=== PATIENT | male | born 1960 | race Caucasian/White ===

== ENCOUNTER 2016-12-23 17:12 | Inpatient (IN) | payer BC ==
[2016-12-23] MEDS ORDERED: SODIUM CHLORIDE 0.9% 1,000 ML IV STA (17:23)
[2016-12-23] MEDS ORDERED: ASPIRIN 81 MG PO STA ×2 (17:36→17:40)
[2016-12-23] MEDS ORDERED: NITROGLYCERIN SL TABS 0.4 MG TAB SUBLINGUAL PRN ×2 (17:36→19:15)
[2016-12-23] MEDS ORDERED: HEPARIN SODIUM,PORCINE 5,000 UNIT/ML 1 ML VIAL IV PRN (17:36)
[2016-12-23] MEDS ORDERED: HEPARIN SODIUM,PORCINE 5,000 UNIT/ML 1 ML VIAL IV ONE (17:36)
[2016-12-23] MEDS ORDERED: MORPHINE SULFATE 10 MG/ML SYRINGE IV PRN (17:36)
--- NOTE | 2016-12-23 17:40 | ED ---
General Adult HPI - General Chief complaint: Weakness Stated complaint: pain in back, feeling ill Time Seen by Provider: 12/23/16 17:23 Source: patient, RN notes reviewed, old records reviewed Mode of arrival: wheelchair Limitations: no limitations - History of Present Illness Initial comments: This is a 56-year-old male to the ER for evaluation chest pain. Patient is anterior chest pain and pain that is in his back. Patient had prehospital EKG which he was told may have been abnormal. Patient's part in by EMS. Patient denies any shortness of breath or diaphoresis. Patient states he thinks he has history of heart disease and does have a positive family history of heart disease and history himself of ex-smoking. Patient has no high blood pressure normal cholesterol. No recent cardiac evaluation. Patient denies any symptoms of recent cough or congestion, no fatigue, no travel history. Pain started about an hour and a half to 2 hours prior to arrival, is sharp in nature, no modifying factors for pain at this time - Related Data Previous Rx's Medication Instructions Recorded Aspirin 81 mg PO DAILY #30 chew 12/26/16 Atorvastatin [Lipitor] 80 mg PO HS #30 tab 12/26/16 Carvedilol [Coreg] 6.25 mg PO BID-W/MEALS #60 tab 12/26/16 Lisinopril [Zestril] 5 mg PO BID #60 tab 12/26/16 Nitroglycerin Sl Tabs [Nitrostat] 0.4 mg SUBLINGUAL Q5M PRN #25 tab 12/26/16 Prasugrel [Effient] 10 mg PO DAILY #30 tab 12/26/16 Spironolactone [Aldactone] 25 mg PO DAILY #30 tab 12/26/16 Allergies Allergy/AdvReac Type Severity Reaction Status Date / Time No Known Allergies Allergy Verified 12/23/16 20:05 Review of Systems ROS Statement: Those systems with pertinent positive or pertinent negative responses have been documented in the HPI. ROS Other: All systems not noted in ROS Statement are negative. Past Medical History Past Medical History: Coronary Artery Disease (CAD), COPD History of Any Multi-Drug Resistant Organisms: None Reported Past Surgical History: Tonsillectomy Additional Past Surgical History / Comment(s): ABLATION ON HEART FOR SVT Past Psychological History: No Psychological Hx Reported Smoking Status: Former smoker Past Alcohol Use History: Occasional Past Drug Use History: None Reported General Exam Limitations: no limitations General appearance: alert, in no apparent distress, anxious Head exam: Present: atraumatic, normocephalic, normal inspection Eye exam: Present: normal appearance, PERRL, EOMI. Absent: scleral icterus, conjunctival injection, periorbital swelling ENT exam: Present: normal exam, mucous membranes moist Neck exam: Present: normal inspection. Absent: tenderness, meningismus, lymphadenopathy Respiratory exam: Present: normal lung sounds bilaterally. Absent: respiratory distress, wheezes, rales, rhonchi, stridor Cardiovascular Exam: Present: regular rate, normal rhythm, normal heart sounds. Absent: systolic murmur, diastolic murmur, rubs, gallop, clicks GI/Abdominal exam: Present: soft, normal bowel sounds. Absent: distended, tenderness, guarding, rebound, rigid Extremities exam: Present: normal inspection, full ROM, normal capillary refill. Absent: tenderness, pedal edema, joint swelling, calf tenderness Back exam: Present: normal inspection Neurological exam: Present: alert, oriented X3, CN II-XII intact Psychiatric exam: Present: normal affect, normal mood Skin exam: Present: warm, dry, intact, normal color. Absent: rash Course Vital Signs 12/23/16 12/23/16 12/23/16 17:14 17:35 17:37 Temperature 99.1 F Pulse Rate 110 H 116 H 111 H Respiratory 18 18 Rate Blood Pressure 210/104 204/113 199/111 O2 Sat by Pulse 96 Oximetry 12/23/16 17:48 Temperature Pulse Rate 125 H Respiratory 18 Rate Blood Pressure 206/105 O2 Sat by Pulse 97 Oximetry - Reevaluation(s) Reevaluation #1: STEMI paged overhead, cardiology evaluate patient in the emergency room Reevaluation #2: Spoke with patient regarding diagnosis, patient questions are answered at this time. 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 - Lab Data Result diagrams: 12/26/16 05:37 12/25/16 05:51 - Radiology Data Radiology results: report reviewed (Portable chest x-ray negative), image reviewed Critical Care Time Critical Care Time: Yes Total Critical Care Time: 31 Disposition Clinical Impression: STEMI (ST elevation myocardial infarction) Disposition: ADMITTED IP TO THIS [facility] Condition: Critical
[2016-12-23] MEDS ORDERED: SODIUM CHLORIDE 0.9% 1,000 ML IV SCH ×2 (17:45→19:15)
[2016-12-23] MEDS ORDERED: HEPARIN SODIUM,PORCINE/D5W PMX 25,000 UNIT in DEXTROSE/WATER 1 500ML.BAG IV SCH (17:45)
[2016-12-23] MEDS ORDERED: LABETALOL 5 MG/ML VIAL MDV IVP STA (17:45)
[2016-12-23 17:51] LABS: Basophils # (A) 0.1 k/uL (0-0.2); Basophils % (A) 0 %; CH 29.9; CHCM 32.5; Eosinophils # (A) 0.2 k/uL (0-0.7); Eosinophils % (A) 1 %; HCT 49.4 % (39.0-53.0); HDW 2.22; HGB 15.8 gm/dL (13.0-17.5); Luc # (Auto) 0.25; Luc % (Auto) 2; Lymphocytes # (A) 2.7 k/uL (1.0-4.8); Lymphocytes % (A) 21 %; MCH 29.6 pg (25.0-35.0); MCHC 32.1 g/dL (31.0-37.0); MCV 92.2 fL (80.0-100.0); Mean Platelet Volume 7.2; Monocytes # (A) 0.8 k/uL (0-1.0); Monocytes % (A) 6 %; Neutrophils # (A) 9.2 k/uL (1.3-7.7); Neutrophils % (A) 70 %; RBC 5.36 m/uL (4.30-5.90); RDW 12.6 % (11.5-15.5); WBC 13.3 k/uL (3.8-10.6); WBC (Perox) 12.54
[2016-12-23] MEDS ORDERED: LIDOCAINE 2% INJ 20 MG/ML (20 ML MDV) ONE (17:51)
[2016-12-23] MEDS ORDERED: SODIUM CHLORIDE 0.9% 1,000 ML IV ONE (17:55)
[2016-12-23 18:00] LABS: ALT 84 U/L (21-72); AST 85 U/L (17-59); Alkaline Phosphatase 69 U/L (38-126); Anion Gap 10 mmol/L; Blood Urea Nitrogen 15 mg/dL (9-20); Calcium 9.9 mg/dL (8.4-10.2); Carbon Dioxide 27 mmol/L (22-30); Chloride 103 mmol/L (98-107); Glucose 118 mg/dL (74-99); Non-African American GFR(MDRD) >60 (>60 ml/min/1.73 sqM); Phosphorus 3.9 mg/dL (2.5-4.5); Potassium 4.7 mmol/L (3.5-5.1); Sodium 140 mmol/L (137-145); Total Bilirubin 0.5 mg/dL (0.2-1.3); Total Protein 7.9 g/dL (6.3-8.2)
[2016-12-23 18:03] LABS: INR 1.1 (<1.2); Partial Thromboplastin Time 25.7 sec (22.0-30.0); Prothrombin Time 10.7 sec (9.0-12.0)
[2016-12-23] MEDS ORDERED: VERAPAMIL 2.5 MG/ML 2 ML AMP ONE (18:09)
[2016-12-23] MEDS ORDERED: diphenhydrAMINE 50 MG/ML 1 ML VIAL ONE (18:10)
[2016-12-23] MEDS ORDERED: fentaNYL (PF) 50 MCG/ML 2 ML AMP ONE (18:10)
--- NOTE | 2016-12-23 18:12 | XR ---
EXAMINATION TYPE: XR chest 1V DATE OF EXAM: 12/23/2016 COMPARISON: NONE HISTORY: Abnormal cardiogram TECHNIQUE: Single frontal view of the chest is obtained. FINDINGS: Heart and mediastinum are normal. Lungs are clear of consolidation. There are no hilar mas ses. There is no pleural effusion. There are chest leads. IMPRESSION: No active cardiopulmonary disease.
[2016-12-23] MEDS ORDERED: LIDOCAINE 2% INJ 20 MG/ML SQ ONE (18:13)
[2016-12-23] MEDS ORDERED: diphenhydrAMINE 50 MG/ML 1 ML VIAL IVP ONE (18:13)
[2016-12-23] MEDS ORDERED: fentaNYL (PF) 50 MCG/ML 2 ML AMP IV ONE (18:13)
[2016-12-23] MEDS ORDERED: VERAPAMIL SYRINGE (5 MG/10 ML) INTRAARTER ONE ×2 (18:15)
[2016-12-23] MEDS ORDERED: BIVALIRUDIN BOLUS 250 MG/50 ML IV ONE (18:22)
[2016-12-23] MEDS ORDERED: BIVALIRUDIN 250 MG in SODIUM CHLORIDE 0.9% 50 ML IV ONE (18:22)
[2016-12-23 18:23] LABS: Creatine Kinase MB 36.4 ng/mL (0.0-2.4); Troponin I 2.87 ng/mL (0.000-0.034)
[2016-12-23] MEDS ORDERED: PRASUGREL 10 MG TAB ONE (18:25)
[2016-12-23] MEDS ORDERED: NITROGLYCERIN 1000MCG/10ML SYRINGE INTRACORON ONE (18:26)
[2016-12-23] MEDS ORDERED: PRASUGREL 10 MG TAB PO ONE (18:27)
[2016-12-23] MEDS ORDERED: IOHEXOL 350 MG/ML 125ML BOTTLE INJ ONE (18:51)
[2016-12-23] MEDS ORDERED: RX INFO: IV CONTRAST WAS GIVEN 1 EACH MISC MISCELLANE PRN (19:15)
[2016-12-23] MEDS ORDERED: MAG HYDROX/AL HYDROX/SIMETH 30 ML CUP PO PRN (19:15)
[2016-12-23] MEDS ORDERED: ZOLPIDEM 5 MG TAB PO PRN (19:15)
[2016-12-23] MEDS ORDERED: ATROPINE SULFATE 0.1 MG/ML 10ML SYRINGE IV PRN (19:15)
[2016-12-23 19:19] LABS: Glucose,Whole Blood 132 mg/dL (75-99)
--- NOTE | 2016-12-23 19:33 | CONS ---
CONSULTATION Mr. Lindo is a 56-year-old male with no prior history of coronary disease, history of hypertension, who presented to the emergency room with symptoms of chest discomfort. His discomfort started at 1:00 while at work with pain in the chest and in the back is associated with discomfort in the ear. He came into the emergency room and his EKG was consistent with an acute anterior wall myocardial infarction. The patient is average in his exercise tolerance, has no prior documented history of coronary artery disease, has no significant dyspnea on exertion, no dizziness, palpitations or syncope. 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 His coronary risk factors are remarkable for hypertension. He is nonsmoker, nondiabetic. REVIEW OF SYSTEMS: RESPIRATORY: No recent wheezing. No cough. No history of documented asthma, emphysema or bronchitis. GI: No recent GI bleed. No peptic ulcer disease. : No dysuria or hematuria. NERVOUS: No stroke or seizure. PHYSICAL EXAMINATION: A 56-year-old male; alert, oriented, in mild discomfort, examined in the cardiac catheterization laboratory. Blood pressure running in the 90s with a heart rate of 170/95. HEAD: Normocephalic. EYES: Sclerae anicteric. NECK: Good upstroke. No bruits. No jugular venous distention with a transmitted murmur. LUNGS: Clear to auscultation anteriorly. HEART: Regular rhythm. S1, S2. No S3 with systolic murmur 2/6 heard at the base. No diastolic murmur. No rub. ABDOMEN: Soft, nontender. Positive bowel sounds. No organomegaly. EXTREMITIES: No edema. Intact distal pulses. EKG revealed sinus mechanism, rate of 108 with evidence of right bundle branch block and ST-segment elevation in the anterolateral leads consistent with an acute myocardial infarction with ST elevation involving the inferior leads as well. IMPRESSION: 1. Acute anterolateral apical myocardial infarction. 2. History of hypertension. 3. Remote history of supraventricular tachycardia, status post ablation. RECOMMENDATION: I recommend proceeding with coronary angiography to assess his status and guide his treatment. The rationale behind the procedure, risks and the complication were discussed with the patient, who is in full understanding and agreement. Thank you for this consult. We will follow with you. MMODL / IJN: [id number] /
--- NOTE | 2016-12-23 19:42 | CC ---
CARDIAC CATHETERIZATION REPORT Mr. Lindo is a 56-year-old male with a known history of hypertension who presented with an acute anterior myocardial infarction. In view of that, recommendation made regarding cardiac catheterization. The procedure, risks and complications were discussed with the patient, who is in full understanding and agreement. 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 Using Xylocaine anesthesia and Seldinger technique, a 6-Portuguese sheath was introduced in the right radial artery. Selective right and left coronary angiography were performed using 6-Portuguese 3-1/2 FL guiding catheter and after performing angioplasty and stenting, right coronary angiography was performed. Right coronary angiography was performed using a 5-Portuguese 3- 1/2 bend right Belen catheter. Following that, the 5-Portuguese tight pigtail catheter introduced in the left ventricle and a 30-degree ALEX view of the left ventricle was obtained. Following the catheter and sheath were removed. Hemostasis was obtained with deployment of TR band. There was no immediate complication. Patient was returned to his room in stable condition. Of note, the patient received intra-arterial verapamil. FINDINGS: 1. Fluoroscopy: There was severe calcification involving the proximal LAD. 2. Left main: This is a short size vessel. It bifurcates immediately to the LAD and left circumflex. Left main coronary artery has no evidence of high-grade stenosis. 3. Left anterior artery: This is a large-sized vessel, calcified proximally, has a 20% plaque proximally. Following that, it gives rise to 2 diagonal branches at the takeoff. At the 2nd diagonal branch, the vessel is totally occluded with minimal antegrade flow. 4. Left circumflex: This is a large dominant vessel giving rise to 2 obtuse marginal branches distally, bifurcating into PDA and posterolateral segment and branches. The PLV has a long segment of stenosis up to 60% to 70%. The vessel beyond that is small in caliber. 5. Right coronary artery: This is a small nondominant vessel that has a 70% stenosis proximally. 6. Left ventriculogram: Left ventriculogram is performed in 30-degree ALEX view and revealed anterior apical akinesis. The estimated ejection fraction is 30% to 35%. There was no significant mitral regurgitation. 7. Hemodynamics: The left ventricular end-diastolic pressure was 20-22 mmHg. There was a gradient of 20-25 mmHg peak to peak across the aortic valve. IMPRESSION: 1. Calcified proximal left anterior descending artery. 2. 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 3. Moderate disease in the left posterior left ventricular and significant disease in a small nondominant right coronary artery. 4. Severely impaired left ventricular systolic function. 5. A 25 mmHg peak to peak gradient across the aortic valve. RECOMMENDATION: In view of finding anatomy, I have recommend proceeding with angioplasty and stenting of the LAD. The procedure, its risks and complications, were discussed with the patient, who is in full understanding and agreement. MMODL / IJN: [id number] /
[2016-12-23] MEDS: LISINOPRIL 5 MG TAB PO SCH (20:14)
[2016-12-23] MEDS: ATORVASTATIN 80 MG TAB PO SCH (20:14)
[2016-12-23] MEDS: CARVEDILOL 6.25 MG TAB PO SCH (20:14)
[2016-12-23 20:20] VITALS: BMI 35.9
[2016-12-23] MEDS ORDERED: METOPROLOL TARTRATE 50 MG TAB PO SCH ×2 (21:00)
[2016-12-24 01:43] LABS: Troponin I 95.3 ng/mL (0.000-0.034)
[2016-12-24 05:15] LABS: Basophils % (A) 0 %; CH 29.8; CHCM 32.3; Eosinophils # (A) 0.2 k/uL (0-0.7); Eosinophils % (A) 2 %; HCT 47.2 % (39.0-53.0); HDW 2.15; Luc # (Auto) 0.27; Luc % (Auto) 2; Lymphocytes # (A) 2.7 k/uL (1.0-4.8); Lymphocytes % (A) 20 %; MCH 29.5 pg (25.0-35.0); MCHC 31.9 g/dL (31.0-37.0); MCV 92.5 fL (80.0-100.0); Mean Platelet Volume 7.3; Monocytes # (A) 1.4 k/uL (0-1.0); Monocytes % (A) 10 %; Neutrophils # (A) 8.6 k/uL (1.3-7.7); Neutrophils % (A) 66 %; RDW 12.6 % (11.5-15.5); WBC 13.1 k/uL (3.8-10.6); WBC (Perox) 13.02
[2016-12-24 05:59] LABS: Anion Gap 9 mmol/L; Blood Urea Nitrogen 13 mg/dL (9-20); Calcium 9.2 mg/dL (8.4-10.2); Carbon Dioxide 29 mmol/L (22-30); Chloride 102 mmol/L (98-107); Cholesterol 190 mg/dL (<200); Glucose 128 mg/dL (74-99); HDL Cholesterol 37 mg/dL (40-60); Non-African American GFR(MDRD) >60 (>60 ml/min/1.73 sqM); Potassium 4.5 mmol/L (3.5-5.1); Sodium 140 mmol/L (137-145)
[2016-12-24 06:19] LABS: Troponin I 61.3 ng/mL (0.000-0.034)
[2016-12-24] MEDS: CARVEDILOL 6.25 MG TAB PO SCH ×2 (08:12→17:43)
[2016-12-24] MEDS ORDERED: ASPIRIN 325 MG TAB PO SCH ×2 (09:00)
[2016-12-24] MEDS: ASPIRIN 81 MG PO SCH (09:19)
[2016-12-24] MEDS: LISINOPRIL 5 MG TAB PO SCH ×2 (09:19→20:56)
[2016-12-24] MEDS: SPIRONOLACTONE 25 MG TAB PO SCH (09:19)
[2016-12-24] MEDS: PRASUGREL 10 MG TAB PO SCH (09:19)
--- NOTE | 2016-12-24 12:52 | PTCA ---
PERCUTANEOUSTRANS CORORONARY ANGIOGRAPHY Mr. Lindo is a 56-year-old male who presented with an acute anterior myocardial infarction, underwent cardiac catheterization, was found to have totally occluded mid LAD. In view of that, recommendation made regarding coronary angioplasty and stenting. The procedures as well as risks and complications, were discussed with the patient, who is in full understanding and agreement. PROCEDURE: Using the 6-B[place] FL 3-1/2 guiding catheter, a 0.014 balanced medium weight J-wire was advanced across the lesion and positioned distally. Then a 2.5 x 12-mm Trek balloon was advanced and 1 inflation was done at 10 atmospheres. Following that, the balloon was removed and a 2.75 x 23-mm Xience Alpine stent was deployed, postdilated at 14 atmospheres. Following that, the balloon was removed and a 2.5 x 15-mm Xience Alpine stent was deployed distal to the first one and postdilated at 14 atmospheres. Subsequently, the balloon was withdrawn back in the overlap segment and a dilatation at 16 atmosphere was done. Following that, the angiography of the right coronary artery and left ventriculogram were performed. Following that, catheter and sheaths were removed. Hemostasis was obtained with deployment of a TR band. There was no immediate complication. Patient was returned to his room in stable condition. Of note, the patient received Angiomax per protocol as was oral loading dose of Effient. His chest discomfort resolved at the end the procedure. RESULTS: Successful stenting of the mid left anterior descending with reduction of stenosis from 100% to 0%. RECOMMENDATION: The patient will be continued on aspirin, Effient, beta blockers and simvastatin. The left ventricular function will be followed closely. Those findings and recommendations were discussed with the patient and his family and they are in full understanding and agreement. DURATION OF THE PROCEDURE: 51 minutes. MMODL / IJN: [id number] /
--- NOTE | 2016-12-24 12:54 | LTR ---
Dear Dr. Maddox: I had the pleasure to perform cardiac catheterization, coronary angioplasty and stenting on Mr. Lindo at [facility] on December 23 and a full copy of the procedure note will be forwarded to you. In brief, he was found to have a totally occluded mid LAD and underwent successful stenting of that vessel using drug-eluting stent. I am hopeful that this procedure will stabilize his status and we will see improvement in his left ventricular systolic function. Thank you again for for allowing me to participate in the in his care. Please feel free to call for any questions. Sincerely yours, MMREEDL / IJN: [id number] /
--- NOTE | 2016-12-24 15:09 | ECHOF ---
Referral Reason:mi MEASUREMENTS -------- HEIGHT: 180.3 cm WEIGHT: 116.6 kg BP: 134/69 IVSd: 1.4 cm (0.6 - 1.1) LVIDd: 4.6 cm (3.9 - 5.3) LVPWd: 1.4 cm (0.6 - 1.1) IVSs: 1.5 cm LVIDs: 2.4 cm LVPWs: 1.2 cm Ao Diam: 3.4 cm (2.0 - 3.7) AV Cusp: 0.9 cm (1.5 - 2.6) LA Diam: 2.7 cm (2.7 - 3.8) MV EXCURSION: 10.542 mm (> 18.000) MV EF SLOPE: 88 mm/s (70 - 150) EPSS: 0.6 cm MV E Farhan: 0.81 m/s MV DecT: 180 ms MV A Farhan: 1.07 m/s MV E/A Ratio: 0.76 AV maxP.10 mmHg AV meanP.71 mmHg RAP: 5.00 mmHg RVSP: 11.77 mmHg FINDINGS -------- Sinus rhythm. This was a technically difficult study with suboptimal views. The left ventricular size is normal. There is moderate concentric left ventricular hypertrophy. Overall left ventricular systolic function is mild-moderately impaired with, an EF between 40 - 45 %. [place] is serverly hypokinetic The right ventricle is normal in size and function. The left atrium is normal in size. The right atrium is normal in size. 1.5mg of Definity was utilized for enhancement of images Aortic valve is trileaflet and is moderately thickened. There is moderate aortic stenosis present. Peak/mean gradient across the Aortic Valve is 20.10mmHg / 12.71mmHg. The mitral valve leaflets are mildly thickened. There is trace mitral regurgitation. Trace tricuspid regurgitation present. The right ventricular systolic pressure, as measured by Doppler, is 11.77mmHg. Pulmonic valve appears structurally normal. The aortic root size is normal. The pericardium is normal. CONCLUSIONS -------- 1. Sinus rhythm. 2. 1.5mg of Definity was utilized for enhancement of images 3. Aortic valve is trileaflet and is moderately thickened. 4. There is moderate aortic stenosis present. 5. Peak/mean gradient across the Aortic Valve is 20.10mmHg / 12.71mmHg. 6. The mitral valve leaflets are mildly thickened. 7. There is trace mitral regurgitation. 8. Trace tricuspid regurgitation present. 9. The right ventricular systolic pressure, as measured by Doppler, is 11.77mmHg. 10. Pulmonic valve appears structurally normal. 11. The aortic root size is normal. 12. This was a technically difficult study with suboptimal views. 13. The pericardium is normal. 14. The left ventricular size is normal. 15. There is moderate concentric left ventricular hypertrophy. 16. Overall left ventricular systolic function is mild-moderately impaired with, an EF between 40 - 45 %. 17. [place] Hypokinesis. 18. The right ventricle is normal in size and function. 19. The left atrium is normal in size. 20. The right atrium is normal in size. ANIMAL KEEPER HEAD: Nola Hickman RDCS
--- NOTE | 2016-12-24 17:22 | PN ---
PROGRESS NOTE This patient was admitted with an acute anterior wall myocardial infarction. Patient underwent stent to the mid LAD. He is doing well. Denies any chest pain. Denies any shortness of breath. He has clinically remained stable. The patient's EKG shows persistent ST-segment elevation in the anterior leads. Blood pressure is 125/66 mmHg. First and second heart sounds are normal. Lungs are clinically clear to auscultation and percussion. We will review the patient's chest x-ray, continue the current medications. He will be transferred to the selective care unit and will be ambulated. MMODL / IJN: [id number] /
--- NOTE | 2016-12-24 17:34 | P.HPIM ---
History of Present Illness H&P Date: 12/24/16 Chief Complaint: Back pain Patient is a 56-year-old male without significant past medical history except hypertension came to ER with complaints of back pain radiating up towards his years started yesterday afternoon while he was at work. Patient also felt some chest discomfort. Patient was found to have elevated troponin level and EKG showed ST elevation while in the ER. 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 Denied any exertional short of breath otherwise. Patient also felt some stomach upset at the time. Denied any diaphoresis. No vomiting. No headache or dizziness or lightheadedness. Patient does have a history of SVT and underwent ablation about 15 years ago. Currently patient is chest pain-free Chest x-ray showed no acute cardio pulmonary process. Review of Systems Constitutional: Patient denies any fever or chills . No generalized weakness or weight loss. Abdomen: Patient denied nausea vomiting and diarrhea and abdominal pain. Cardiovascular: Patient denies any chest pain or short of breath no palpitations. Respiratory: patient denied any cough is from production. No shortness of breath Neurologic: Patient denied any numbness or tingling headache. Musculoskeletal: Patient denies any complaints of joint swelling or deformity. Skin: Negative Psychiatric: Negative Endocrine: No heat or cold intolerance. No recent weight gain. Genitourinary: No dysuria or hematuria. All other 14 point ROS negative except the above Past Medical History Past Medical History: Coronary Artery Disease (CAD), COPD History of Any Multi-Drug Resistant Organisms: None Reported Past Surgical History: Tonsillectomy, Ventriculoperitoneal Shunt Additional Past Surgical History / Comment(s): ABLATION ON HEART FOR SVT 19 years ago Past Anesthesia/Blood Transfusion Reactions: No Reported Reaction Past Psychological History: No Psychological Hx Reported Smoking Status: Former smoker Past Alcohol Use History: Occasional Past Drug Use History: None Reported Medications and Allergies Home Medications Medication Instructions Recorded Confirmed Type Lisinopril [Zestril] 20 mg PO DAILY 12/23/16 12/23/16 History Allergies Allergy/AdvReac Type Severity Reaction Status Date / Time No Known Allergies Allergy Verified 12/23/16 20:05 Physical Exam Vitals: Vital Signs Temp Pulse Resp BP Pulse Ox 12/24/16 14:00 64 12 125/66 95 10/21/17 13:00 85 12 135/68 95 12/24/16 12:00 98.1 F 83 14 119/66 95 12/24/16 11:00 92 12 105/67 95 12/24/16 10:00 88 12 143/87 94 L 12/24/16 09:00 86 14 110/60 94 L 12/24/16 08:30 87 12 133/80 92 L 12/24/16 08:00 98.7 F 90 14 119/74 94 L 12/24/16 07:30 86 12 127/70 96 12/24/16 07:00 84 133/71 98 12/24/16 06:30 86 150/70 97 12/24/16 06:00 86 20 134/69 96 12/24/16 05:30 85 18 119/71 97 12/24/16 05:00 92 17 128/66 97 12/24/16 04:30 87 18 118/43 96 12/24/16 04:00 98.6 F 86 22 109/56 96 12/24/16 03:30 90 18 135/66 96 12/24/16 03:00 87 18 140/71 98 12/24/16 02:30 99 16 112/55 94 L 12/24/16 02:00 95 22 105/56 96 12/24/16 01:30 90 16 141/72 96 12/24/16 01:00 89 14 137/68 96 12/24/16 00:30 84 12 139/73 97 12/24/16 00:00 98.2 F 93 20 134/74 97 12/23/16 23:30 87 22 155/78 96 12/23/16 23:24 88 16 155/78 97 12/23/16 23:00 86 22 149/77 97 12/23/16 22:30 88 16 156/84 96 12/23/16 22:00 89 20 96 12/23/16 21:32 98 12/23/16 21:30 85 22 184/95 98 12/23/16 21:00 93 22 177/103 98 12/23/16 20:30 92 26 H 189/103 98 12/23/16 20:09 98.8 F 90 20 187/92 98 12/23/16 17:48 125 H 18 206/105 97 12/23/16 17:37 111 H 199/111 12/23/16 17:35 116 H 18 204/113 12/23/16 17:14 99.1 F 110 H 18 210/104 96 Intake and Output 12/24/16 12/24/16 12/24/16 06:59 14:59 22:59 Intake Total 800 775 Output Total 400 1 Balance 400 774 Intake: IV 800 100 Sodium Chloride 0.9% 1, 800 100 000 ml @ 100 mls/hr IV . Q10H [facility] Rx#:[id number] Oral 675 Output: Urine 400 0 Urine/Stool Mix 1 Other: Voiding Method Urinal Urinal # Voids 1 Weight 117 kg 117 kg Patient Weight 12/25/16 06:59 Weight 117 kg PHYSICAL EXAMINATION: Patient is lying in the bed comfortably, no acute distress, awake alert and oriented.. HEENT: Normocephalic. Neck is supple. Pupils reactive. Nostrils clear. Oral cavity is moist. Ears reveal no drainage. Neck reveals no JVD, carotid bruits, or thyromegaly. CHEST EXAMINATION: Trachea is central. Symmetrical expansion. Lung smith clear to auscultation and percussion. CARDIAC: Normal S1, S2 with no gallops. No murmurs ABDOMEN: Soft. Bowel sounds normal. No organomegaly. No abdominal bruits. Extremities: reveal no edema. No clubbing or cyanosis Neurologically awake, alert, oriented x3 with well-coordinated movements. No focal deficits noted Skin: No rash or skin lesions. Psychiatric: Operative. Nonsuicidal Musculoskeletal: No joint swelling or deformity. Normal range of motion. Results CBC & Chem 7: 12/24/16 04:58 12/24/16 04:58 Labs: Abnormal Lab Results - Last 24 Hours (Table) 12/23/16 12/23/16 12/23/16 Range/Units 17:42 17:42 17:42 WBC 13.3 H (3.8-10.6) k/uL Neutrophils # 9.2 H (1.3-7.7) k/uL Monocytes # (0-1.0) k/uL Glucose 118 H (74-99) mg/dL POC Glucose (mg/dL) (75-99) mg/dL AST 85 H (17-59) U/L ALT 84 H (21-72) U/L Total Creatine Kinase 910 H (55-170) U/L CK-MB (CK-2) 36.4 H* (0.0-2.4) ng/mL Troponin I 2.870 H* (0.000-0.034) ng/mL Triglycerides (<150) mg/dL LDL Cholesterol, Calc (0-99) mg/dL HDL Cholesterol (40-60) mg/dL 12/23/16 12/23/16 12/24/16 Range/Units 19:18 23:59 04:58 WBC (3.8-10.6) k/uL Neutrophils # (1.3-7.7) k/uL Monocytes # (0-1.0) k/uL Glucose (74-99) mg/dL POC Glucose (mg/dL) 132 H (75-99) mg/dL AST (17-59) U/L ALT (21-72) U/L Total Creatine Kinase >3200 H 2895 H (55-170) U/L CK-MB (CK-2) 208.0 H* 128.0 H* (0.0-2.4) ng/mL Troponin I 95.300 H* 61.300 H* (0.000-0.034) ng/mL Triglycerides (<150) mg/dL LDL Cholesterol, Calc (0-99) mg/dL HDL Cholesterol (40-60) mg/dL 12/24/16 12/24/16 Range/Units 04:58 04:58 WBC 13.1 H (3.8-10.6) k/uL Neutrophils # 8.6 H (1.3-7.7) k/uL Monocytes # 1.4 H (0-1.0) k/uL Glucose 128 H (74-99) mg/dL POC Glucose (mg/dL) (75-99) mg/dL AST (17-59) U/L ALT (21-72) U/L Total Creatine Kinase (55-170) U/L CK-MB (CK-2) (0.0-2.4) ng/mL Troponin I (0.000-0.034) ng/mL Triglycerides 165 H (<150) mg/dL LDL Cholesterol, Calc 120 H (0-99) mg/dL HDL Cholesterol 37 L (40-60) mg/dL Thrombosis Risk Factor Assmnt - Choose All That Apply Any of the Below Risk Factors Present?: Yes Each Factor Represents 1 point: Abnormal pulmonary function (COPD), Acute MD, Age 41-60 years Other Risk Factors: No Other congenital or acquired thrombophilia - If yes, enter type in comment: No Thrombosis Risk Factor Assessment Total Risk Factor Score: 3 Thrombosis Risk Factor Assessment Level: Moderate Risk Assessment and Plan Assessment: #[address] elevated [place] status post stenting of LAD #2 hypertension. Controlled #3 history of SVT status post ablation 15 years ago #4 morbid obesity with BMI 36 #5 acute CHF with ejection fraction 30-35%. Not in exacerbation Plan: Patient will be continued on aspirin and atorvastatin and was prasugrel. And also started on Coreg and lisinopril. We will continue the telemetry monitoring and follow closely. Cardiology is on board. Further recommendations based on the clinical course. Time with Patient: Greater than 30
[2016-12-24] MEDS: ATORVASTATIN 80 MG TAB PO SCH (20:56)
[2016-12-25 06:38] LABS: Mean Platelet Volume 8.1
[2016-12-25 06:57] LABS: Anion Gap 9 mmol/L; Blood Urea Nitrogen 16 mg/dL (9-20); Calcium 9.4 mg/dL (8.4-10.2); Carbon Dioxide 29 mmol/L (22-30); Chloride 100 mmol/L (98-107); Glucose 112 mg/dL (74-99); Non-African American GFR(MDRD) >60 (>60 ml/min/1.73 sqM); Potassium 4.4 mmol/L (3.5-5.1); Sodium 138 mmol/L (137-145)
[2016-12-25] MEDS: CARVEDILOL 6.25 MG TAB PO SCH ×2 (07:09→17:35)
[2016-12-25] MEDS: ASPIRIN 81 MG PO SCH (08:26)
[2016-12-25] MEDS: SPIRONOLACTONE 25 MG TAB PO SCH (08:27)
[2016-12-25] MEDS: PRASUGREL 10 MG TAB PO SCH (08:27)
[2016-12-25] MEDS: LISINOPRIL 5 MG TAB PO SCH ×2 (08:27→21:18)
--- NOTE | 2016-12-25 14:01 | P.PN ---
Subjective Progress Note Date: 12/25/16 Principal diagnosis: Acute anterior wall DC This is a 56-year-old gentleman who presented to the hospital with an acute anterior wall DC. He was taken to the cardiac catheterization lab where he underwent angioplasty with stenting of the LAD. Echocardiogram with Doppler study was performed which revealed an ejection fraction of 40-45%. Patient was seen and examined this morning, he's been up ambulating in the perdomo most of the day today. Denies any chest discomfort. EKG shows normal sinus rhythm with a mild improvement anterior ST-T wave changes. Objective - Vital Signs Vital signs: Vital Signs Temp 96.4 F L 12/25/16 12:00 Pulse 85 12/25/16 12:00 Resp 18 12/25/16 12:00 BP 134/65 12/25/16 12:00 Pulse Ox 94 L 12/25/16 12:00 Intake & Output 12/24/16 12/25/16 12/25/16 18:59 06:59 18:59 Intake Total 775 120 Output Total 1 Balance 774 120 Weight 117 kg 188 kg Intake: IV 100 Sodium Chloride 0.9% 1, 100 000 ml @ 100 mls/hr IV . Q10H [facility] Rx#:[id number] Oral 675 120 Output: Urine 0 Urine/Stool Mix 1 Other: Voiding Method Urinal Urinal # Voids 1 1 - Exam PHYSICAL EXAMINATION: HEENT: Head is atraumatic, normocephalic. Pupils equal, round. Neck is supple. There is no elevated jugular venous pressure. HEART EXAMINATION: Heart S1, S2 normal. No murmur or gallop heard. CHEST EXAMINATION: Lungs are clear to auscultation and precussion. No chest wall tenderness is noted on palpation or with deep breathing. ABDOMEN: Soft, nontender. Bowel sounds are heard. No organomegaly noted. EXTREMITIES: 2+ peripheral pulses with no evidence of peripheral edema and no calf tenderness noted. NEUROLOGIC patient is awake, alert and oriented -3. . - Labs CBC & Chem 7: 12/25/16 05:51 12/25/16 05:51 Labs: Abnormal Lab Results - Last 24 Hours (Table) 12/25/16 Range/Units 05:51 Glucose 112 H (74-99) mg/dL Assessment and Plan (1) ST elevation (STEMI) myocardial infarction involving left anterior descending coronary artery Current Visit: Yes Status: Acute Code(s): I21.02 - STEMI INVOLVING LEFT ANTERIOR DESCENDING CORONARY ARTERY SNOMED Code(s): 26684858 (2) Presence of stent in LAD coronary artery Current Visit: Yes Status: Acute Code(s): Z95.5 - PRESENCE OF CORONARY ANGIOPLASTY IMPLANT AND GRAFT SNOMED Code(s): 996907409087514 (3) HTN (hypertension) Current Visit: Yes Status: Acute Code(s): I10 - ESSENTIAL (PRIMARY) HYPERTENSION SNOMED Code(s): 67128001 (4) Hx of supraventricular tachycardia Current Visit: Yes Status: Acute Code(s): Z86.79 - PERSONAL HISTORY OF OTHER DISEASES OF THE CIRCULATORY SYSTEM SNOMED Code(s): 929237009877738 Plan: Cardiology's perspective, we'll continue patient on his current medications. We 'll plan for possible discharge home in 24 hours if stable. DNP note has been reviewed, I agree with a documented findings and plan of care. Patient was seen and examined.
[2016-12-25] MEDS: ATORVASTATIN 80 MG TAB PO SCH (21:18)
[2016-12-26] MEDS: CARVEDILOL 6.25 MG TAB PO SCH (06:24)
[2016-12-26 06:28] LABS: Mean Platelet Volume 7.7
[2016-12-26 08:56] VITALS: RESP 16; TEMP 97.6
[2016-12-26] MEDS: SPIRONOLACTONE 25 MG TAB PO SCH (08:57)
[2016-12-26] MEDS: PRASUGREL 10 MG TAB PO SCH (08:57)
[2016-12-26] MEDS: LISINOPRIL 5 MG TAB PO SCH (08:57)
[2016-12-26] MEDS: ASPIRIN 81 MG PO SCH (08:57)
--- NOTE | 2016-12-26 11:18 | P.PN ---
Subjective Progress Note Date: 12/26/16 Principal diagnosis: Acute anterior wall PR This is a 56-year-old gentleman who presented to the hospital with an acute anterior wall PR. He was taken to the cardiac catheterization lab where he underwent angioplasty with stenting of the LAD. Echocardiogram with Doppler study was performed which revealed an ejection fraction of 40-45%. Patient was seen and examined this morning, he's been up ambulating in the perdomo , denies any chest pain or difficulty in breathing. He states he had an episode of leg cramps through the night, after walking this subsided. He may be able to be discharged home today from cardiology's perspective. We will make him a follow- up appointment to see Dr. Lozano in the office in one week. Patient will be discharged home on aspirin 81 mg daily, Lipitor 80 mg daily, Coreg 6.25 mg twice a day, lisinopril 5 mg twice a day, Effient 10 mg daily, Aldactone 25 mg daily, and sublingual nitroglycerin as needed for chest pain. Objective - Vital Signs Vital signs: Vital Signs Temp 97.6 F 12/26/16 08:55 Pulse 80 12/26/16 08:55 Resp 16 12/26/16 08:55 BP 129/66 12/26/16 08:55 Pulse Ox 94 L 12/26/16 08:55 Intake & Output 12/25/16 12/26/16 12/26/16 18:59 06:59 18:59 Intake Total 600 230 236 Output Total 1400 Balance -800 230 236 Weight 117.9 kg Intake: Oral 600 230 236 Output: Urine 1400 Other: Voiding Method Toilet Toilet Urinal Urinal # Voids 3 1 - Exam PHYSICAL EXAMINATION: HEENT: Head is atraumatic, normocephalic. Pupils equal, round. Neck is supple. There is no elevated jugular venous pressure. HEART EXAMINATION: Heart S1, S2 normal. No murmur or gallop heard. CHEST EXAMINATION: Lungs are clear to auscultation and precussion. No chest wall tenderness is noted on palpation or with deep breathing. ABDOMEN: Soft, nontender. Bowel sounds are heard. No organomegaly noted. EXTREMITIES: 2+ peripheral pulses with no evidence of peripheral edema and no calf tenderness noted. NEUROLOGIC patient is awake, alert and oriented -3. . - Labs CBC & Chem 7: 12/26/16 05:37 10/22/17 05:51 Assessment and Plan (1) ST elevation (STEMI) myocardial infarction involving left anterior descending coronary artery Current Visit: Yes Status: Acute Code(s): I21.02 - STEMI INVOLVING LEFT ANTERIOR DESCENDING CORONARY ARTERY SNOMED Code(s): 95869498 (2) Presence of stent in LAD coronary artery Current Visit: Yes Status: Acute Code(s): Z95.5 - PRESENCE OF CORONARY ANGIOPLASTY IMPLANT AND GRAFT SNOMED Code(s): 666655244760330 (3) HTN (hypertension) Current Visit: Yes Status: Acute Code(s): I10 - ESSENTIAL (PRIMARY) HYPERTENSION SNOMED Code(s): 61512398 (4) Hx of supraventricular tachycardia Current Visit: Yes Status: Acute Code(s): Z86.79 - PERSONAL HISTORY OF OTHER DISEASES OF THE CIRCULATORY SYSTEM SNOMED Code(s): 345146846295211 Plan: FROM Cardiology's perspective, patient may be able to be discharged home today. We will make him a follow-up appointment with Dr. Lozano in the office in one week. Patient will be discharged home on Ecotrin 81 mg daily, Lipitor 80 mg daily, Coreg 6.25 mg twice a day, lisinopril 5 twice a day, Effient 10 mg daily , Aldactone 25 mg daily and sublingual nitroglycerin as needed for chest pain. Patient has been provided prescriptions for all of the above medications. DNP note has been reviewed, I agree with a documented findings and plan of care. Patient was seen and examined.
[2016-12-26 12:43] VITALS: BP 133/65; PULSE 76
--- NOTE | 2016-12-27 00:07 | P.PN ---
Subjective Progress Note Date: 12/25/16 Principal diagnosis: Acute ST elevation CT Patient is a 56-year-old male without significant past medical history except hypertension came to ER with complaints of back pain radiating up towards his years started yesterday afternoon while he was at work. Patient also felt some chest discomfort. Patient was found to have elevated troponin level and EKG showed ST elevation while in the ER. 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 Denied any exertional short of breath otherwise. Patient also felt some stomach upset at the time. Denied any diaphoresis. No vomiting. No headache or dizziness or lightheadedness. Patient does have a history of SVT and underwent ablation about 15 years ago. Currently patient is chest pain-free Chest x-ray showed no acute cardio pulmonary process. 12/25/2016 Patient denied any complaints of chest pain or short of breath. No nausea vomiting or abdominal pain. No acute overnight issues. Anticipate to be discharged discharged home tomorrow. Objective - Vital Signs Vital signs: Vital Signs Temp 96.4 F L 12/25/16 12:00 Pulse 91 12/25/16 16:00 Resp 18 12/25/16 16:00 BP 153/69 12/25/16 16:00 Pulse Ox 96 12/25/16 16:00 Intake & Output 12/25/16 12/25/16 12/26/16 06:59 18:59 06:59 Intake Total 120 600 230 Output Total 1400 Balance 120 -800 230 Weight 188 kg Intake: Oral 120 600 230 Output: Urine 1400 Other: Voiding Method Urinal # Voids 1 3 - Exam PHYSICAL EXAMINATION: Patient is lying in the bed comfortably, no acute distress, awake alert and oriented.. HEENT: Normocephalic. Neck is supple. Pupils reactive. Nostrils clear. Oral cavity is moist. Ears reveal no drainage. Neck reveals no JVD, carotid bruits, or thyromegaly. CHEST EXAMINATION: Trachea is central. Symmetrical expansion. Lung smith clear to auscultation and percussion. CARDIAC: Normal S1, S2 with no gallops. No murmurs ABDOMEN: Soft. Bowel sounds normal. No organomegaly. No abdominal bruits. Extremities: reveal no edema. No clubbing or cyanosis Neurologically awake, alert, oriented x3 with well-coordinated movements. No focal deficits noted Skin: No rash or skin lesions. Psychiatric: Operative. Nonsuicidal Musculoskeletal: No joint swelling or deformity. Normal range of motion. - Labs CBC & Chem 7: 12/26/16 05:37 12/25/16 05:51 Labs: Abnormal Lab Results - Last 24 Hours (Table) 12/25/16 Range/Units 05:51 Glucose 112 H (74-99) mg/dL Assessment and Plan Assessment: #[address] status post stenting of LAD #2 hypertension. Controlled #3 history of SVT status post ablation 15 years ago #4 morbid obesity with BMI 36 #5 acute CHF with ejection fraction 30-35%. Not in exacerbation Plan: Patient will be continued on aspirin and atorvastatin and was prasugrel. And also started on Coreg and lisinopril. We will continue the telemetry monitoring and follow closely. Cardiology is on board. Further recommendations based on the clinical course.
--- NOTE | 2016-12-27 00:08 | P.DS ---
Providers Date of admission: 12/23/16 17:37 Expected date of discharge: 12/26/16 Attending physician: Leslee Meredith Consults: 12/23/16 17:37 Consult Physician Urgent Consulting Provider: Flaco Lozano Consult Reason/Comments: stemi Do you want consulting provider notified?: Yes 12/23/16 19:15 Consult Physician Routine Consulting Provider: [facility] Consult Reason/Comments: Post Interventional patient Do you want consulting provider notified?: Already Contacted Primary care physician: Deidre Tan [facility] Course: #[address] elevated [place] status post stenting of LAD #2 hypertension. Controlled #3 history of SVT status post ablation 15 years ago #4 morbid obesity with BMI 36 #5 acute CHF with ejection fraction 30-35%. Not in exacerbation Patient is a 56-year-old male without significant past medical history except hypertension came to ER with complaints of back pain radiating up towards his years started yesterday afternoon while he was at work. Patient also felt some chest discomfort. Patient was found to have elevated troponin level and EKG showed ST elevation while in the ER. 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 Denied any exertional short of breath otherwise. Patient also felt some stomach upset at the time. Denied any diaphoresis. No vomiting. No headache or dizziness or lightheadedness. Patient does have a history of SVT and underwent ablation about 15 years ago. Currently patient is chest pain-free Chest x-ray showed no acute cardio pulmonary process. 12/25/2016 Patient denied any complaints of chest pain or short of breath. No nausea vomiting or abdominal pain. No acute overnight issues. Anticipate to be discharged discharged home tomorrow. Patient will be continued on aspirin and atorvastatin and was prasugrel. And also started on Coreg and lisinopril. Patient is stable to discharge home. Discharge physical examination was done Patient Condition at Discharge: Critical Plan - Discharge Summary New Discharge Prescriptions: New Aspirin 81 mg PO DAILY #30 chew Atorvastatin [Lipitor] 80 mg PO HS #30 tab Carvedilol [Coreg] 6.25 mg PO BID-W/MEALS #60 tab Lisinopril [Zestril] 5 mg PO BID #60 tab Nitroglycerin Sl Tabs [Nitrostat] 0.4 mg SUBLINGUAL Q5M PRN #25 tab PRN Reason: Chest Pain Prasugrel [Effient] 10 mg PO DAILY #30 tab Spironolactone [Aldactone] 25 mg PO DAILY #30 tab Discontinued Lisinopril [Zestril] 20 mg PO DAILY Discharge Medication List Aspirin 81 mg PO DAILY #30 chew 12/26/16 [Rx] Atorvastatin [Lipitor] 80 mg PO HS #30 tab 12/26/16 [Rx] Carvedilol [Coreg] 6.25 mg PO BID-W/MEALS #60 tab 12/26/16 [Rx] Lisinopril [Zestril] 5 mg PO BID #60 tab 12/26/16 [Rx] Nitroglycerin Sl Tabs [Nitrostat] 0.4 mg SUBLINGUAL Q5M PRN #25 tab 12/26/16 [Rx ] Prasugrel [Effient] 10 mg PO DAILY #30 tab 12/26/16 [Rx] Spironolactone [Aldactone] 25 mg PO DAILY #30 tab 12/26/16 [Rx] Follow up Appointment(s)/Referral(s): Flaco Lozano MD [STAFF PHYSICIAN] - 1 Week Deidre Maddox MD [Primary Care Provider] - 01/02/17 10:00 am Ambulatory/Diagnostic Orders: Comprehensive Metabolic Panel [LAB.AMB] Time Frame: 3 Days, Location: Determined By Patient Patient Instructions/Handouts: *Surgery [facility] - After Heart Catheterization - Surfacing Machine Operator Instructions, After Radial Heart Catheterization (GEN) Activity/Diet/Wound Care/Special Instructions: Cardiology office to call you to schedule follow up. Discharge Disposition: HOME SELF-CARE
--- NOTE | 2017-01-03 10:34 | CDI ---
In responding to this query, please exercise your independent professional judgment. The [facility] Coding Staff and Clinical Documentation Specialists appreciate your assistance in clarifying documentation, maintaining compliance with coding guidelines, accurately documenting patients condition and capturing severity of illness. The fact that a question is asked does not imply that any particular answer is desired or expected. Communication forms are a method of clarifying documentation and are not made part of the Legal Health Record. Thank you in advance for your clarification. Last Revision, May 2016 Guille Thomason [address] [place] [address] Documentation Clarification Form Date: 01/03/2017 10:18:00 AM From: Yokasta Woo Admit Date: 12/23/2016 5:37:00 PM Patient Name: Chicho Lindo Visit Number: [id number] Discharge Date: 12/26/16 Dr. Leslee Meredith CHF is documented in the H&P, 12/25 PN and discharge summary. History/Risk Factors: hx of SVT s/p ablation Clinical Indicators: VS/Pulse OX: P-110, RR-18, BP-210/104, O2 stats-96 BNP: not ordered Echocardiogram Results: Overall left ventricular systolic function is mild- moderately impaired with, an EF between 40-45%. Chest X Ray: No active cardiopulmonary disease. Treatment: Aldactone 25mg po Consults: Cardiology In your professional opinion, can you please clarify the acuity and type of CHF if known? Systolic Heart Failure: Acute Chronic Acute on Chronic Diastolic Heart Failure: Acute Chronic Acute on Chronic Systolic & Diastolic Heart Failure: Acute Chronic Acute on Chronic Unable to determine Other, please specify Please document addendum in your discharge summary in order to capture severity of illness and risk of mortality. Include clinical findings that support your diagnosis. FYI: Press F11 to launch patient chart. If you have a question about this query, please contact Silvia Watts, Plumbing Contractor, Guille Thomason at [phone] between 8am and 5pm. Pl send to dr natalya TOPETE
--- NOTE | 2017-01-05 16:57 | CDI ---
In responding to this query, please exercise your independent professional judgment. The [facility] Coding Staff and Clinical Documentation Specialists appreciate your assistance in clarifying documentation, maintaining compliance with coding guidelines, accurately documenting patients condition and capturing severity of illness. The fact that a question is asked does not imply that any particular answer is desired or expected. Communication forms are a method of clarifying documentation and are not made part of the Legal Health Record. Thank you in advance for your clarification. Last Revision, May 2016 Guille Thomason [address] [place] [address] Documentation Clarification Form Date: 01/03/2017 10:18:00 AM From: Yokasta Chilo Admit Date: 12/23/2016 5:37:00 PM Patient Name: Chicho Lindo Visit Number: [id number] Discharge Date: 12/26/16 Dr. Richmond Pina CHF is documented in the H&P, 12/25 PN and discharge summary. History/Risk Factors: hx of SVT s/p ablation Clinical Indicators: VS/Pulse OX: P-110, RR-18, BP-210/104, O2 stats-96 BNP: not ordered Echocardiogram Results: Overall left ventricular systolic function is mild- moderately impaired with, an EF between 40-45%. Chest X Ray: No active cardiopulmonary disease. Treatment: Aldactone 25mg po Consults: Cardiology In your professional opinion, can you please clarify the acuity and type of CHF if known? Systolic Heart Failure: Acute Chronic Acute on Chronic Diastolic Heart Failure: Acute Chronic Acute on Chronic Systolic & Diastolic Heart Failure: Acute Chronic Acute on Chronic Unable to determine Other, please specify Please document addendum in your discharge summary in order to capture severity of illness and risk of mortality. Include clinical findings that support your diagnosis. FYI: Press F11 to launch patient chart. If you have a question about this query, please contact Silvia Watts, Cartoon Designer, Guille Thomason at [phone] between 8am and 5pm. EFREM
== END 2016-12-26 15:15 | disposition home or self-care (01) | DRG 247 ==
LOC: EC 17:12 → 6ICU 17:37 → EC 17:55 → 6ICU 20:08 → 6SEL 12-24 15:25
PROVIDERS: ADMIT Hospitalist; ATTEND Hospitalist
PROC: B2151ZZ Fluoroscopy of Left Heart using Low Osmolar Contrast (ICD-10-PCS; 2016-12-23)
PROC: 027035Z Dilation of Coronary Artery, One Artery with Two Drug-eluting Intraluminal Devices, Percutaneous Approach (ICD-10-PCS; principal; 2016-12-23 17:55)
PROC: B2111ZZ Fluoroscopy of Multiple Coronary Arteries using Low Osmolar Contrast (ICD-10-PCS; 2016-12-23 17:55)
DX: I21.02 ST elevation (STEMI) myocardial infarction involving left anterior descending coronary artery (principal); I11.0 Hypertensive heart disease with heart failure; I50.22 Chronic systolic (congestive) heart failure; E66.01 Morbid (severe) obesity due to excess calories; J44.9 Chronic obstructive pulmonary disease, unspecified; K30 Functional dyspepsia; I25.10 Atherosclerotic heart disease of native coronary artery without angina pectoris; Z68.36 Body mass index [BMI] 36.0-36.9, adult; Z79.899 Other long term (current) drug therapy; Z86.79 Personal history of other diseases of the circulatory system; Z87.891 Personal history of nicotine dependence; Z98.2 Presence of cerebrospinal fluid drainage device; Z82.49 Family history of ischemic heart disease and other diseases of the circulatory system
CPT/HCPCS: 36415; 71010; 80048; 80053; 80061; 82550; 82553; 83735; 84100; 84484; 85025; 85049; 85347; 85610; 85730; 93005; 93306; 93458; 96374; 96375; 99285

== ENCOUNTER → 2017-11-16 | Outpatient (CLI) | payer BC ==
[2017-11-16 10:55] LABS: Blood Urea Nitrogen 17 mg/dL (9-20)
--- NOTE | 2017-11-16 13:19 | CT ---
EXAMINATION TYPE: CT angio neck DATE OF EXAM: 11/16/2017 COMPARISON: None HISTORY: 57-year-old male occlusion and stenosis TECHNIQUE: Contiguous axial scanning of the neck performed with IV Contrast, patient injected with 10 0 mL of Isovue 370. Coronal/sagittal MIP reconstructions performed. 3-D reconstructions generated on a dedicated independent workstation. CT DLP: 375 mGycm Automated exposure control for dose reduction was used. FINDINGS: There is variant direct takeoff of the left vertebral artery directly from the aortic arch. The left vertebral artery is dominant. Possible severe atherosclerotic calcification at the V3/V4 junction of the right vertebral artery. The right vertebral artery beyond this is markedly diminutive Severe atherosclerotic changes at the right carotid bifurcation. The right common carotid artery is p atent. Changes result in a severe, 90% stenosis of the proximal right ICA at the level of the carotid bulb. The right carotid bifurcation occurs 1.5 cm below the angle of the mandible. The left common carotid artery is patent With moderate to severe atelectatic change in the left carotid bulb causing severe, 70% narrowing of the proximal left ICA. The left carotid bifurcation occurs 2.0 cm below the angle of the mandible. The visualized cavernous segment of the left internal carotid artery is also markedly diminutive sugg esting moderate to severe stenosis at this level. Refer to axial image 2. IMPRESSION: 1. Severe atherosclerotic changes on the right causing a severe, 90% stenosis of the right carotid bu lb. 2. Moderate to severe atherosclerotic change on the left causing a severe, 70% stenosis of the left c arotid bulb. 3. The cavernous segment of the intracranial left ICA is markedly diminutive suggesting a moderate to severe stenosis at this level as well. 4. Note variant origin of the left vertebral artery directly from the aortic arch. This vessel is dom inant. 5. The nondominant right vertebral artery shows severe focal atherosclerotic calcification at the V3/ V4 junction. The V4 segment right vertebral artery is markedly diminutive beyond this point suggestin g a significant stenosis.
== END | disposition home or self-care (01) ==
LOC: RADCTMAIN 09:56
PROVIDERS: ATTEND Internal Medicine Interventional Cardiology
DX: I65.23 Occlusion and stenosis of bilateral carotid arteries (principal); I67.2 Cerebral atherosclerosis
CPT/HCPCS: 82565; 84520; 70498; 36415; Q9967

== ENCOUNTER → 2017-12-06 | Outpatient (CLI) | payer BC ==
[2017-12-06 17:09] LABS: Basophils % (A) 0 %; Eosinophils # (A) 0.3 k/uL (0-0.7); Eosinophils % (A) 3 %; HCT 43.2 % (39.0-53.0); Lymphocytes # (A) 2.5 k/uL (1.0-4.8); Lymphocytes % (A) 29 %; MCH 29.1 pg (25.0-35.0); MCHC 32.4 g/dL (31.0-37.0); Mean Platelet Volume 7.3; Monocytes # (A) 0.6 k/uL (0-1.0); Monocytes % (A) 7 %; Neutrophils % (A) 58 %; Platelet Count 233 k/uL (150-450); WBC 8.6 k/uL (3.8-10.6)
[2017-12-06 17:18] LABS: Anion Gap 10 mmol/L; Blood Urea Nitrogen 20 mg/dL (9-20); Carbon Dioxide 26 mmol/L (22-30); Chloride 107 mmol/L (98-107); Potassium 4.3 mmol/L (3.5-5.1); Sodium 143 mmol/L (137-145)
== END | disposition home or self-care (01) ==
LOC: LABPAT 16:12
PROVIDERS: ATTEND Surgery
DX: Z01.812 Encounter for preprocedural laboratory examination (principal); I65.21 Occlusion and stenosis of right carotid artery
CPT/HCPCS: 36415; 80051; 82565; 84520; 85025

== ENCOUNTER 2017-12-12 05:43 | Inpatient (IN) | payer BC ==
[2017-12-07 09:19] VITALS: BMI 35.4
[~2017-12-12 05:43] MED LIST: HYDROmorphone 0.5 MG/0.5 ML SYRINGE IVP PRN; HYDROmorphone 1 MG/ML 1 ML SYRINGE IVP PRN; LACTATED RINGERS 1,000 ML IV SCH; ONDANSETRON 4 MG/2 ML VIAL IVP ONE; ONDANSETRON 4 MG/2 ML VIAL IVP PRN; ceFAZolin IN SWFI 2 GM/20 ML SYRINGE IVP ONE; fentaNYL (PF) 50 MCG/ML 2 ML AMP IV PRN
[2017-12-12] MEDS: LACTATED RINGERS 1,000 ML IV SCH ×4 (06:29→23:00)
[2017-12-12] MEDS ORDERED: LIDOCAINE 1% 20 ML VIAL (10MG/ML) FOR IV START INTRADERMA ONE (06:29)
[2017-12-12 06:30] LABS: Glucose,Whole Blood 127 mg/dL (75-99)
[2017-12-12] MEDS ORDERED: PHENYLEPHRINE 40 MG in SODIUM CHLORIDE 0.9% 250 ML IV SCH (07:15)
[2017-12-12] MEDS ORDERED: PROPOFOL 10 MG/ML 20 ML VIAL IV ONE (07:24)
[2017-12-12] MEDS ORDERED: PHENYLEPHRINE-0.9% NACL SYG 1 MG/10 ML SYRINGE ONE (07:24)
[2017-12-12] MEDS ORDERED: NEOSTIGMINE 1 MG/ML 10 ML VIAL ONE (07:24)
[2017-12-12] MEDS ORDERED: HEPARIN SODIUM,PORCINE 10,000 UNIT/ML 1 ML VIAL ONE (07:24)
[2017-12-12] MEDS ORDERED: ePHEDrine SULFATE/0.9% NACL/PF 50 MG/5 ML SYRINGE IV ONE (07:24)
[2017-12-12] MEDS ORDERED: SUCCINYLCHOLINE CHLORIDE 100 MG/5 ML SYR IV ONE (07:24)
[2017-12-12] MEDS ORDERED: fentaNYL (PF) 50 MCG/ML 2 ML AMP ONE (07:24)
[2017-12-12] MEDS ORDERED: MIDAZOLAM 2 MG/2 ML VIAL ONE (07:24)
[2017-12-12] MEDS ORDERED: GLYCOPYRROLATE 0.2 MG/ML 2 ML VIAL ONE (07:24)
[2017-12-12] MEDS ORDERED: LABETALOL 5 MG/ML VIAL MDV ONE (07:24)
[2017-12-12] MEDS ORDERED: LIDOCAINE 1% INJ 10MG/ML (20 ML MDV) ONE (07:24)
[2017-12-12] MEDS ORDERED: ROCURONIUM BROMIDE 10 MG/ML 10 ML VIAL IV ONE (07:24)
[2017-12-12] MEDS ORDERED: LIDOCAINE 1% INJ 10MG/ML (20 ML MDV) IM ONE (08:14)
[2017-12-12] MEDS ORDERED: LACTATED RINGERS 1,000 ML IV ONE (08:15)
[2017-12-12] MEDS: LACTATED RINGERS 1,000 ML IV ONE ×2 (08:15→13:02)
[2017-12-12] MEDS ORDERED: MAG HYDROX/AL HYDROX/SIMETH 30 ML CUP PO PRN (10:04)
[2017-12-12] MEDS ORDERED: HYDROcodone/APAP 5-325MG 1 EACH TAB PO PRN (10:04)
[2017-12-12] MEDS ORDERED: TRIMETHOBENZAMIDE 100 MG/ML 2 ML VIAL IM PRN (10:04)
[2017-12-12] MEDS ORDERED: MORPHINE SULFATE 2 MG/ML SYRINGE IVP PRN (10:04)
[2017-12-12] MEDS ORDERED: BENZOCAINE/MENTHOL LOZENG 1 EACH LOZENGE MUCOUS MEM PRN (10:04)
[2017-12-12] MEDS ORDERED: ACETAMINOPHEN TAB 325 MG TAB PO PRN (10:04)
[2017-12-12] MEDS ORDERED: NITROGLYCERIN SL TABS 0.4 MG TAB SUBLINGUAL PRN (10:09)
[2017-12-12] MEDS: NITROGLYCERIN-D5W PMX 50 MG in DEXTROSE/WATER 1 250ML.BAG IV SCH ×2 (10:33→14:05)
--- NOTE | 2017-12-12 10:33 | P.OP ---
Date of Procedure: 12/12/17 Preoperative Diagnosis: Right Internal Carotid stenosis >90% Postoperative Diagnosis: Same Procedure(s) Performed: Right carotid endarterectomy with patch angioplasty Implants: bovine pericardial patch 1x6cm Anesthesia: GARTHA Surgeon: Logan Medrano Estimated Blood Loss (ml): 50 Pathology: other (carotid plaque) Condition: stable Disposition: PACU Indications for Procedure: 57 year old gentleman presented to the office with severe right internal and carotid bulb stenosis of greater than 90% found on carotid doppler and CTA. He presents for elective carotid endarterectomy. Operative Findings: Dense rubbery hemorrhagic plaque within the carotid bulb and extending to the internal carotid. High bifurcation. Description of Procedure: After written informed consent was obtained the patient all risks benefits competitions were described the patient is brought to the operative suite and laid in a beachchair position. The area of the neck and chest were prepped and draped in usual sterile fashion after appropriate anesthetic was performed per the anesthesiologist. A timeout was performed in normal fashion antibiotics were administered prior to incision. An oblique incision was then created at the anterior aspect of the sternocleidomastoid musculature and dissection was carried down to the carotid sheath. The carotid sheath was then incised and further dissection was carried down to the carotid artery. The common carotid, internal and external carotid arteries were then dissected free in a circumferential manner and controlled with vessel loops. Of note upon dissection the there was a high bifurcation as well as dense calcified plaque at the bifurcation. Further meticulous dissection was then carried around the internal and external carotid arteries as well as the superior thyroid artery which was controlled. The ansa cervicalis nerve was located and was crossing directly over the common carotid artery with a small branch and therefore the small branch was cut to give better access. The vagus nerve was visualized and was not injured. Further dissection towards the proximal aspect of the common carotid artery was performed due to the dense plaque at the carotid bulb. We also dissected further distally to the hypoglossal nerve which was visualized and spared. There was dense plaque just below the nerve in the internal carotid artery. Once controlled patient was administered heparin and followed with serial ACTs with re-dosing appropriately to keep the above 200. Once appropriate heparinization was performed the carotid artery was then clamped at the common, superior thyroid, internal and external carotid arteries. Arteriotomy was then created and extended with Pott Warner scissors from the common carotid extending up to the internal carotid artery. Stump pressures were obtained which demonstrated a stump pressure of less than 40 and therefore was determined to place a shunt. A Sundt shunt was then placed in normal fashion. Endarterectomy was then performed from the carotid bulb extending into the internal carotid artery and the distal endarterectomy site was feathered for good endpoint. The endpoint did appear to be ragged and therefore stay sutures were placed with 6-0 Prolene suture. All free debris was then removed after copiously irrigated. A 6 x 1 cm bovine pericardial patch was then utilized and anastomosis was created with 6-0 Prolene suture in a running fashion. Prior to last sutures being placed the shunt was removed allowed to backbleed which was brisk from the internal carotid artery. Forward bleeding was allowed from the common carotid which was pulsatile. The vessels were then reclamped. Heparinized saline was injected in side the patch to remove any free debris and the anastomosis was completed. Prior to last suture external carotid artery was released followed by the common carotid to allow for any free debris into the external system followed by the internal carotid artery. Doppler was then used demonstrating good signals both in the internal/external and common carotid arteries. Hemostasis was assured with Surgicel. The area was cleansed with antibiotic solution a 10 SORAIDA drain was placed in normal fashion. The incision was then closed in a multilayer fashion skin was cleansed and dressings were placed. The patient tolerated the procedure well and was awoken in the operating room. He was moving all extremities to command without any focal deficits. He was then sent to PACU for recovery.
[2017-12-12 10:52] LABS: Glucose,Whole Blood 112 mg/dL (75-99)
[2017-12-12 12:43] LABS: Basophils % (A) 0 %; Eosinophils # (A) 0.1 k/uL (0-0.7); Eosinophils % (A) 1 %; HCT 42.1 % (39.0-53.0); HGB 13.6 gm/dL (13.0-17.5); Lymphocytes # (A) 1.7 k/uL (1.0-4.8); Lymphocytes % (A) 13 %; MCH 28.5 pg (25.0-35.0); MCHC 32.4 g/dL (31.0-37.0); Monocytes # (A) 0.8 k/uL (0-1.0); Monocytes % (A) 6 %; Neutrophils # (A) 10.3 k/uL (1.3-7.7); Neutrophils % (A) 79 %; Platelet Count 195 k/uL (150-450); RBC 4.78 m/uL (4.30-5.90); RDW 12.9 % (11.5-15.5); WBC 13.1 k/uL (3.8-10.6)
[2017-12-12 14:33] LABS: Glucose,Whole Blood 108 mg/dL (75-99)
[2017-12-12] MEDS: metFORMIN 500 MG TAB PO SCH (17:14)
[2017-12-12] MEDS: HEPARIN SODIUM,PORCINE 5,000 UNIT/ML 1 ML VIAL SQ SCH ×2 (17:14→23:47)
[2017-12-12] MEDS: INSULIN ASPART 100 UNIT/ML 1 ML 10 ML VIAL SQ SCH ×2 (17:14→20:00)
[2017-12-12] MEDS: CARVEDILOL 6.25 MG TAB PO SCH (17:14)
[2017-12-12 17:15] LABS: Glucose,Whole Blood 96 mg/dL (75-99)
--- NOTE | 2017-12-12 17:27 | CONS ---
CONSULTATION REASON FOR CONSULTATION: Advice regarding diabetes and other medical issues requested by Dr. Medrano. HISTORY OF PRESENT ILLNESS: This 57-year-old gentleman with past medical history of COPD, CAD, diabetes mellitus, hypertension, myocardial infarction being followed by Dr. Maddox in the outpatient setting underwent right internal carotid arterectomy with patch angioplasty by Dr. Medrano. The patient being closely monitored. The patient has complaints of headache after nitroglycerin given for high blood pressure. Otherwise, there is no history of fever, rigors. No history of chest pain, palpitations, headache, loss of consciousness, seizures. PAST MEDICAL HISTORY: History of CAD, COPD, diabetes type 2, hypertension, hyperlipidemia, myocardial infarction, DJD, appendectomy, CAD stent. MEDICATIONS: Home medications are: 1. Glucophage 500 mg p.o. b.i.d. 2. Aldactone 25 mg p.o. daily. 3. Nitrostat 0.4 mg sublingual p.r.n. 4. Zestril 10 mg p.o. b.i.d. 5. Coreg 6.25 mg b.i.d. 6. Lipitor 80 mg q.h.s. 7. Aspirin 81 mg p.o. daily. ALLERGIES: None. FAMILY HISTORY: Family history of colon cancer. SOCIAL HISTORY: Previous history of smoking. No history of current smoking. No alcohol intake. REVIEW OF SYSTEMS: ENT: No diminished hearing or vision. Otherwise mentioned earlier. Cardiovascular: No angina or palpitations. RESPIRATORY: No cough. GI: No nausea or vomiting. : No dysuria. NERVOUS SYSTEM: As mentioned earlier. ALLERGY/IMMUNOLOGY: No asthma or hayfever. MUSCULOSKELETAL: As mentioned earlier. HEMATOLOGY/ONCOLOGY: No history of anemia. ENDOCRINE: Diabetes. CONSTITUTIONAL: As mentioned earlier. Dermatology: Negative. Rheumatology: Negative. Psychiatry: As mentioned earlier. PHYSICAL EXAMINATION: GENERAL: The patient is alert and oriented times three. VITAL SIGNS: Pulse is 77, blood pressure 119/57, respiration 14, temperature 98.4, pulse ox 94% on 2 L. HEENT is conjunctivae normal. Oral mucosa moist. NECK is status post right carotid endarterectomy. CARDIOVASCULAR SYSTEM: S1, S2 muffled. RESPIRATORY: Breath sounds diminished in the bases. No rhonchi. No crackles. ABDOMEN: Soft, nontender. No mass palpable. LEGS: No edema and no swelling. NERVOUS SYSTEM: Higher functions as mentioned. Moves all 4 limbs. No focal motor or sensory deficits. Lymphatics: No lymph nodes palpable in the neck, axillae or groin. SKIN: No ulcer, no rash. No bleeding. LABS: WBC 13.2, hemoglobin 13.6. ASSESSMENT: 1. Status post right carotid endarterectomy with patch angioplasty. 2. History of coronary artery disease. 3. Chronic obstructive pulmonary disease. 4. Diabetes type 2. 5. Hypertension. 6. Hyperlipidemia. 7. Myocardial infarction. 8. History of degenerative joint disease. 9. Coronary artery disease stent. 10.History of cardiac ablation for supraventricular tachycardia. 11.History carpal tunnel surgery. RECOMMENDATIONS AND DISCUSSION: In this 57-year-old gentleman who presented with multiple complex medical issues, we will monitor the patient closely, continue the current medications, management and symptomatic treatment. Otherwise at this time, resume the home medication. Monitor blood pressure closely. I would also recommend monitor blood sugars closely. Follow the patient closely with DVT prophylaxis. The patient may be asked to follow up with Dr. Maddox closely in the outpatient setting. Thank you Dr. Medrano for letting us participate in the care of this patient. MMODL / IJN: [id number] /
[2017-12-12 20:01] LABS: Glucose,Whole Blood 127 mg/dL (75-99)
[2017-12-12] MEDS: LISINOPRIL 10 MG TAB PO SCH (20:01)
[2017-12-12] MEDS ORDERED: ATORVASTATIN 80 MG TAB PO SCH (21:00)
[2017-12-13] MEDS: NITROGLYCERIN-D5W PMX 50 MG in DEXTROSE/WATER 1 250ML.BAG IV SCH (02:10)
[2017-12-13 04:27] LABS: Basophils % (A) 0 %; Eosinophils # (A) 0.2 k/uL (0-0.7); Eosinophils % (A) 2 %; HCT 40.9 % (39.0-53.0); HGB 13.4 gm/dL (13.0-17.5); Lymphocytes # (A) 2.1 k/uL (1.0-4.8); Lymphocytes % (A) 20 %; MCH 29.2 pg (25.0-35.0); MCHC 32.8 g/dL (31.0-37.0); MCV 89.1 fL (80.0-100.0); Mean Platelet Volume 7.3; Monocytes # (A) 0.8 k/uL (0-1.0); Monocytes % (A) 8 %; Neutrophils # (A) 7.3 k/uL (1.3-7.7); Neutrophils % (A) 69 %; Platelet Count 190 k/uL (150-450); RBC 4.59 m/uL (4.30-5.90); RDW 12.9 % (11.5-15.5); WBC 10.6 k/uL (3.8-10.6)
[2017-12-13 04:49] LABS: Anion Gap 7 mmol/L; Blood Urea Nitrogen 14 mg/dL (9-20); Carbon Dioxide 30 mmol/L (22-30); Chloride 100 mmol/L (98-107); Glucose 117 mg/dL (74-99); Potassium 4.2 mmol/L (3.5-5.1); Sodium 137 mmol/L (137-145)
[2017-12-13] MEDS: LISINOPRIL 10 MG TAB PO SCH (05:34)
[2017-12-13] MEDS: CARVEDILOL 6.25 MG TAB PO SCH (05:34)
[2017-12-13 07:00] LABS: Glucose,Whole Blood 116 mg/dL (75-99)
[2017-12-13] MEDS: INSULIN ASPART 100 UNIT/ML 1 ML 10 ML VIAL SQ SCH (07:16)
[2017-12-13] MEDS: HEPARIN SODIUM,PORCINE 5,000 UNIT/ML 1 ML VIAL SQ SCH (08:27)
[2017-12-13] MEDS: metFORMIN 500 MG TAB PO SCH (08:27)
[2017-12-13] MEDS ORDERED: ASPIRIN 81 MG PO SCH (09:00)
[2017-12-13] MEDS ORDERED: SPIRONOLACTONE 25 MG TAB PO SCH (09:00)
[2017-12-13 09:11] VITALS: BP 142/66; PULSE 71; RESP 12; TEMP 98.6
--- NOTE | 2017-12-13 16:19 | PN ---
PROGRESS NOTE DATE OF SERVICE: 12/13/2017 This 57-year-old gentleman who was admitted after carotid endarterectomy is improving significantly. No chest pain. No palpitations. No fever. EXAM: VITAL SIGNS: Alert and oriented x3. Pulse is 71, blood pressure 142/66, respiration 12, temperature 98.6, pulse ox 97% on room air. HEENT: Conjunctivae normal. Oral mucosa moist. NECK is no jugular venous distention. No carotid bruit. No lymph node enlargement. CARDIOVASCULAR SYSTEMS: S1, S2. RESPIRATION: Breath sounds diminished in the bases. No rhonchi. No crackles. ABDOMEN: Soft. Nontender. LEGS: No edema. No swelling. CENTRAL NERVOUS SYSTEM: No focal deficits. the right. LABS: Noted. CBC, BMP noted. ASSESSMENT: 1. Status post carotid endarterectomy with patch angioplasty. 2. History of coronary artery disease. 3. Chronic obstructive pulmonary disease. 4. Diabetes mellitus type 2. 5. Hypertension. 6. Hyperlipidemia. 7. Myocardial infarction. 8. History of degenerative joint disease. 9. History of coronary artery disease stent. 10.History of cardiac ablation with supraventricular tachycardia. 11.History of carpal tunnel surgery. RECOMMENDATIONS AND DISCUSSION: Recommend to continue current medications, symptomatic treatment. Otherwise, resume the home medications. Rest of the recommendations per vascular surgery. Monitor blood sugars closely. Further recommendations to follow. MMODL / IJN: [id number] / MTDD
--- NOTE | 2017-12-13 20:13 | P.DS ---
Providers Date of admission: 12/12/17 05:43 Expected date of discharge: 12/13/17 Attending physician: Logan Medrano DO Consults: 12/12/17 10:08 Consult Physician Routine Consulting Provider: Deidre Maddox Consult Reason/Comments: medical management Do you want consulting provider notified?: Yes 12/12/17 17:09 Consult Physician Routine Consulting Provider: Leslee Meredith Consult Reason/Comments: medical management Do you want consulting provider notified?: Already Contacted Primary care physician: Deidre Maddox - Discharge Diagnosis(es) (1) Carotid stenosis, asymptomatic Status: Acute Priority: High (2) Carotid stenosis, right Status: Acute Priority: High Hospital Course: 57 year old gentleman underwent an uncomplicated carotid endarterectomy and was admitted to the hospital for pain control, and monitoring. He did well, was tolerating a diet, ambulating and his pain was under control and was discharged the following day. Procedures: right carotid endarterectomy Patient Condition at Discharge: Good Plan - Discharge Summary Discharge Rx Participant: Yes New Discharge Prescriptions: New Acetaminophen Tab [Tylenol] 650 mg PO Q4HR PRN tab PRN Reason: Mild Pain HYDROcodone/APAP 5-325MG [[place] 5-325] 1 each PO Q6HR PRN #10 tab PRN Reason: Pain Scale 7 To 10 Clopidogrel Bisulfate [Plavix] 75 mg PO DAILY #30 tab Continue Aspirin 81 mg PO DAILY #30 chew Atorvastatin [Lipitor] 80 mg PO HS #30 tab Carvedilol [Coreg] 6.25 mg PO BID-W/MEALS #60 tab Nitroglycerin Sl Tabs [Nitrostat] 0.4 mg SUBLINGUAL Q5M PRN #25 tab PRN Reason: Chest Pain Spironolactone [Aldactone] 25 mg PO DAILY #30 tab metFORMIN HCL [Glucophage] 500 mg PO BID Lisinopril [Zestril] 10 mg PO BID Discharge Medication List Aspirin 81 mg PO DAILY #30 chew 12/26/16 [Rx] Atorvastatin [Lipitor] 80 mg PO HS #30 tab 12/26/16 [Rx] Carvedilol [Coreg] 6.25 mg PO BID-W/MEALS #60 tab 12/26/16 [Rx] Nitroglycerin Sl Tabs [Nitrostat] 0.4 mg SUBLINGUAL Q5M PRN #25 tab 12/26/16 [Rx ] Spironolactone [Aldactone] 25 mg PO DAILY #30 tab 12/26/16 [Rx] Lisinopril [Zestril] 10 mg PO BID 12/07/17 [History] metFORMIN HCL [Glucophage] 500 mg PO BID 12/07/17 [History] Acetaminophen Tab [Tylenol] 650 mg PO Q4HR PRN tab 12/13/17 [Rx] Clopidogrel Bisulfate [Plavix] 75 mg PO DAILY #30 tab 12/13/17 [Rx] HYDROcodone/APAP 5-325MG [[place] 5-325] 1 each PO Q6HR PRN #10 tab 12/13/17 [Rx] Follow up Appointment(s)/Referral(s): Logan Medrano DO [STAFF PHYSICIAN] - 01/02/18 1:45 pm Patient Instructions/Handouts: Carotid Endarterectomy (DC) Care Plan Goals (MU): Activity as tolerated, Take medication list to Doctors office on your appointment. Discharge Disposition: HOME SELF-CARE
== END 2017-12-13 10:15 | disposition home or self-care (01) | DRG 39 ==
LOC: 2ORMAIN 05:43 → 6ICU 13:50
PROVIDERS: ADMIT Surgery; ATTEND Surgery
PROC: 03CK0ZZ Extirpation of Matter from Right Internal Carotid Artery, Open Approach (ICD-10-PCS; principal; 2017-12-12 07:30)
PROC: 03UK0JZ Supplement Right Internal Carotid Artery with Synthetic Substitute, Open Approach (ICD-10-PCS; principal; 2017-12-12 07:30)
DX: I65.21 Occlusion and stenosis of right carotid artery (principal); E11.9 Type 2 diabetes mellitus without complications; E78.5 Hyperlipidemia, unspecified; I10 Essential (primary) hypertension; I25.10 Atherosclerotic heart disease of native coronary artery without angina pectoris; J44.9 Chronic obstructive pulmonary disease, unspecified; I25.2 Old myocardial infarction; Z80.0 Family history of malignant neoplasm of digestive organs; Z87.891 Personal history of nicotine dependence; Z95.5 Presence of coronary angioplasty implant and graft; Z79.84 Long term (current) use of oral hypoglycemic drugs; Z79.82 Long term (current) use of aspirin; Z79.899 Other long term (current) drug therapy
CPT/HCPCS: 80048; 83036; 85025; 86850; 86900; 86901; 88304; 88305; 88311

== ENCOUNTER 2018-09-08 07:48 | Inpatient (IN) | payer BC ==
[2018-09-08] MEDS ORDERED: SODIUM CHLORIDE 0.9% 1,000 ML IV STA (08:14)
[2018-09-08] MEDS ORDERED: ACETAMINOPHEN TAB 500 MG TAB PO STA (08:15)
[2018-09-08] MEDS ORDERED: IBUPROFEN 600 MG TAB PO STA (08:15)
--- NOTE | 2018-09-08 08:20 | ED ---
General Adult HPI - General Chief complaint: Abdominal Pain Stated complaint: ABDOMINAL PAIN, NAUSEA, VOMITING Time Seen by Provider: 09/08/18 07:50 Source: patient, RN notes reviewed Mode of arrival: ambulatory Limitations: no limitations - History of Present Illness Initial comments: This is a 58-year-old male who presents to the emergency department complaining of diffuse abdominal upset since Monday. Patient states she's also had a fever intermittently during that time. Patient states she's had some dry heaves but he has had persistent diarrhea. Patient denies any blood in the stool. Patient denies any recent antibiotic use. Patient states was no specific point of tenderness in his abdomen it is more diffuse and it's more in the center left area. Patient denies any chest pain difficulty breathing shortness of breath per patient denies any cough. Patient denies any dysuria hematuria urinary frequency. Patient denies any back pain. Patient denies any neck pain or stiffness. - Related Data Home Medications Medication Instructions Recorded Confirmed metFORMIN HCL [Glucophage] 500 mg PO BID 12/07/17 09/08/18 Ibuprofen [Motrin Ib] 400 - 600 mg PO Q6H PRN 09/08/18 09/08/18 Lisinopril [Zestril] 10 mg PO BID 09/08/18 09/08/18 Previous Rx's Medication Instructions Recorded Aspirin 81 mg PO DAILY #30 chew 12/26/16 Atorvastatin [Lipitor] 80 mg PO HS #30 tab 12/26/16 Carvedilol [Coreg] 6.25 mg PO BID-W/MEALS #60 tab 12/26/16 Nitroglycerin Sl Tabs [Nitrostat] 0.4 mg SUBLINGUAL Q5M PRN #25 tab 12/26/16 Spironolactone [Aldactone] 25 mg PO DAILY #30 tab 12/26/16 Allergies Allergy/AdvReac Type Severity Reaction Status Date / Time No Known Allergies Allergy Verified 09/08/18 08:40 Review of Systems ROS Statement: Those systems with pertinent positive or pertinent negative responses have been documented in the HPI. ROS Other: All systems not noted in ROS Statement are negative. Past Medical History Past Medical History: Coronary Artery Disease (CAD), COPD, Diabetes Mellitus, Hyperlipidemia, Hypertension, Myocardial Infarction (OK), Osteoarthritis (OA) Last Myocardial Infarction Date:: 12-23-16 History of Any Multi-Drug Resistant Organisms: None Reported Past Surgical History: Appendectomy, Cardiac Ablation, Heart Catheterization With Stent, Orthopedic Surgery Additional Past Surgical History / Comment(s): CARDIAC ABLATION FOR SVT, carpal tunnel surg Past Anesthesia/Blood Transfusion Reactions: No Reported Reaction Date of Last Stent Placement:: 12-23-16 Past Psychological History: No Psychological Hx Reported Smoking Status: Former smoker Past Alcohol Use History: Occasional Past Drug Use History: None Reported - Past Family History Father Brother(s) Family Medical History: Cancer Additional Family Medical History / Comment(s): colon General Exam - General Exam Comments Initial Comments: GENERAL: Patient is well-developed and well-nourished. Patient is nontoxic and well- hydrated and is in mild distress. ENT: Neck is soft and supple. No significant lymphadenopathy is noted. Oropharynx is clear. Moist mucous membranes. Neck has full range of motion without eliciting any pain. EYES: The sclera were anicteric and conjunctiva were pink and moist. Extraocular movements were intact and pupils were equal round and reactive to light. Eyelids were unremarkable. PULMONARY: Patient has slight crackles in the left base CARDIOVASCULAR: There is a regular rate and rhythm without any murmurs gallops or rubs. ABDOMEN: Soft and nontender with normal bowel sounds. There is no specific area of point tenderness. No rebound or guarding SKIN: Skin is clear with no lesions or rashes and otherwise unremarkable. NEUROLOGIC: Patient is alert and oriented x3. Cranial nerves II through XII are grossly intact. Motor and sensory are also intact. Normal speech, volume and content. Symmetrical smile. MUSCULOSKELETAL: Normal extremities with adequate strength and full range of motion. No lower extremity swelling or edema. No calf tenderness. LYMPHATICS: No significant lymphadenopathy is noted PSYCHIATRIC: Normal psychiatric evaluation. Limitations: no limitations Course Vital Signs 09/08/18 09/08/18 09/08/18 07:50 08:54 09:25 Temperature 101.7 F H Pulse Rate 112 H 114 H 99 Respiratory 18 24 Rate Blood Pressure 148/79 148/88 O2 Sat by Pulse 95 89 L Oximetry Medical Decision Making - Medical Decision Making Chest x-ray shows left lower lobe pneumonia. I started the patient 2 g of Rocephin. Patient also has elevated creatinine. I spoke with Dr. pradhan he agreed to admit the patient admitted the patient I wrote admit orders Patient received a breathing treatment emergency Department patient's pulse ox on room air was 88-89% I continued antibiotics on the floor. EKG shows sinus tachycardia with occasional PVC at 107 bpm WA interval 130 QRS 130 QT interval 364 QTC is 485. Patient's right bundle branch block. There is no ST segment elevation. - Lab Data Result diagrams: 09/08/18 08:30 09/08/18 08:30 Lab Results 09/08/18 09/08/18 09/08/18 Range/Units 08:30 08:30 08:30 WBC 18.1 H (3.8-10.6) k/uL RBC 4.90 (4.30-5.90) m/uL Hgb 14.3 (13.0-17.5) gm/dL Hct 42.7 (39.0-53.0) % MCV 87.3 (80.0-100.0) fL MCH 29.1 (25.0-35.0) pg MCHC 33.4 (31.0-37.0) g/dL RDW 13.7 (11.5-15.5) % Plt Count 229 (150-450) k/uL Neutrophils % 79 % Lymphocytes % 8 % Monocytes % 8 % Eosinophils % 1 % Basophils % 0 % Neutrophils # 14.3 H (1.3-7.7) k/uL Lymphocytes # 1.4 (1.0-4.8) k/uL Monocytes # 1.5 H (0-1.0) k/uL Eosinophils # 0.1 (0-0.7) k/uL Basophils # 0.1 (0-0.2) k/uL Sodium 137 (137-145) mmol/L Potassium 4.2 (3.5-5.1) mmol/L Chloride 97 L (98-107) mmol/L Carbon Dioxide 23 (22-30) mmol/L Anion Gap 17 mmol/L BUN 54 H (9-20) mg/dL Creatinine 2.47 H (0.66-1.25) mg/dL Est GFR (CKD-EPI)AfAm 32 (>60 ml/min/1.73 sqM) Est GFR (CKD-EPI)NonAf 28 (>60 ml/min/1.73 sqM) Glucose 149 H (74-99) mg/dL Plasma Lactic Acid Zach 1.4 (0.7-2.0) mmol/L Calcium 8.5 (8.4-10.2) mg/dL Total Bilirubin 0.7 (0.2-1.3) mg/dL AST 49 (17-59) U/L ALT 49 (21-72) U/L Alkaline Phosphatase 57 (38-126) U/L Total Protein 7.3 (6.3-8.2) g/dL Albumin 4.4 (3.5-5.0) g/dL Amylase 145 H (30-110) U/L Lipase 601 H (23-300) U/L Influenza Type A RNA (Not Detectd) Influenza Type B (PCR) (Not Detectd) 09/08/18 Range/Units 08:30 WBC (3.8-10.6) k/uL RBC (4.30-5.90) m/uL Hgb (13.0-17.5) gm/dL Hct (39.0-53.0) % MCV (80.0-100.0) fL MCH (25.0-35.0) pg MCHC (31.0-37.0) g/dL RDW (11.5-15.5) % Plt Count (150-450) k/uL Neutrophils % % Lymphocytes % % Monocytes % % Eosinophils % % Basophils % % Neutrophils # (1.3-7.7) k/uL Lymphocytes # (1.0-4.8) k/uL Monocytes # (0-1.0) k/uL Eosinophils # (0-0.7) k/uL Basophils # (0-0.2) k/uL Sodium (137-145) mmol/L Potassium (3.5-5.1) mmol/L Chloride (98-107) mmol/L Carbon Dioxide (22-30) mmol/L Anion Gap mmol/L BUN (9-20) mg/dL Creatinine (0.66-1.25) mg/dL Est GFR (CKD-EPI)AfAm (>60 ml/min/1.73 sqM) Est GFR (CKD-EPI)NonAf (>60 ml/min/1.73 sqM) Glucose (74-99) mg/dL Plasma Lactic Acid Zach (0.7-2.0) mmol/L Calcium (8.4-10.2) mg/dL Total Bilirubin (0.2-1.3) mg/dL AST (17-59) U/L ALT (21-72) U/L Alkaline Phosphatase (38-126) U/L Total Protein (6.3-8.2) g/dL Albumin (3.5-5.0) g/dL Amylase (30-110) U/L Lipase (23-300) U/L Influenza Type A RNA Not Detected (Not Detectd) Influenza Type B (PCR) Not Detected (Not Detectd) Disposition Clinical Impression: Pneumonia, Acute renal failure Disposition: ADMITTED IP TO THIS HOSP Referrals: Deidre Maddox MD [Primary Care Provider] - 1-2 days Time of Disposition: 09:23
[2018-09-08] MEDS ORDERED: ONDANSETRON 4 MG/2 ML VIAL IVP STA (08:41)
[2018-09-08 08:47] LABS: Basophils # (A) 0.1 k/uL (0-0.2); Basophils % (A) 0 %; Eosinophils # (A) 0.1 k/uL (0-0.7); Eosinophils % (A) 1 %; HCT 42.7 % (39.0-53.0); HGB 14.3 gm/dL (13.0-17.5); Lymphocytes # (A) 1.4 k/uL (1.0-4.8); Lymphocytes % (A) 8 %; MCH 29.1 pg (25.0-35.0); MCHC 33.4 g/dL (31.0-37.0); MCV 87.3 fL (80.0-100.0); Monocytes # (A) 1.5 k/uL (0-1.0); Monocytes % (A) 8 %; Neutrophils # (A) 14.3 k/uL (1.3-7.7); Neutrophils % (A) 79 %; Platelet Count 229 k/uL (150-450); RDW 13.7 % (11.5-15.5); WBC 18.1 k/uL (3.8-10.6)
[2018-09-08 09:03] LABS: Albumin 4.4 g/dL (3.5-5.0); Calcium 8.5 mg/dL (8.4-10.2); Potassium 4.2 mmol/L (3.5-5.1); Total Bilirubin 0.7 mg/dL (0.2-1.3); Total Protein 7.3 g/dL (6.3-8.2)
--- NOTE | 2018-09-08 09:09 | XR ---
EXAMINATION TYPE: XR chest 2V DATE OF EXAM: 09/08/2018 COMPARISON: 12/23/2016 TECHNIQUE: PA and lateral views submitted. HISTORY: Shortness of breath FINDINGS: No pleural effusion or pneumothorax. Heart is prominent in size. No overt failure. Hyperinflation sug gests COPD. Hypertrophic and degenerative changes spine. Appears to be increased density in the later al view overlying the lower lumbar spine suspicious for a retrocardiac infiltrate. IMPRESSION: 1. There is increased density in the lateral view within the lower lobe likely in the left retrocardi ac region suspicious for a pneumonic infiltrate..
[2018-09-08] MEDS ORDERED: IPRATROPIUM-ALBUTEROL 3 ML NEB INHALATION STA (09:19)
[2018-09-08] MEDS ORDERED: AZITHROMYCIN 500 MG in SODIUM CHLORIDE 0.9% 250 ML IVPB STA (09:23)
[2018-09-08] MEDS ORDERED: PNEUMONIA PROTOCOL UTILIZED 1 EACH MISC PO PRN (09:23)
[2018-09-08] MEDS: SODIUM CHLORIDE 0.9% 1,000 ML IV SCH ×2 (10:05→20:30)
[2018-09-08 11:15] VITALS: BMI 37.5
[2018-09-08] MEDS ORDERED: IPRATROPIUM-ALBUTEROL 3 ML NEB INHALATION PRN (11:37)
[2018-09-08 11:38] LABS: Glucose,Whole Blood 135 mg/dL (75-99)
--- NOTE | 2018-09-08 11:40 | P.HPIM ---
History of Present Illness This is a pleasant 58 years old male with past medical history of coronary artery disease, COPD, diabetes mellitus, hyperlipidemia, hypertension, osteoarthritis. Presents with abdominal pain for for 5 days duration. Started on Monday with abdominal pain all over his central abdomen was severe on the nonradiating, continuous blood coming down currently 2/10 associated with some nausea and vomiting about twice per day with no blood in it. He also he had diarrhea about every hour, lose and yellowish. However his last bowel movement was yesterday. Patient also benefit from dyspnea with dry cough. He feels generally weak with decreased appetite for the last 4-5 days. Vitas looks stable, however patient has fever of 101.7, he was a bit tachycardic and 112-114, currently is 92, however his oxygen saturations dropped to 18 9 on room air blood pressure 126/67, saturating 95% in 2 L. Labs showing leukocytosis of 18.1 K, resident of CBC was unremarkable. Creatinine is elevated at 2.4, baseline 0.6. Lipase is elevated at 601, influenza is negative. Chest x-ray showing possible retrocardiac infiltrate. Emergency room patient was started on ceftriaxone and Zithromax, he got Tylenol on apoprotein, Zofran, and 1 L of normal saline. Patient was started on normal saline at 100 mL per hour, Review of Systems CONSTITUTIONAL: No fever, no malaise, no fatigue. HEENT: No recent visual problems or hearing problems. Denied any sore throat. CARDIOVASCULAR: No orthopnea, PND, no palpitations, no syncope. PULMONARY: No shortness of breath, no cough, no hemoptysis. GASTROINTESTINAL: No diarrhea, no nausea, no vomiting, no abdominal pain. Normoactive bowel sounds. NEUROLOGICAL: No headaches, no weakness, no numbness. HEMATOLOGICAL: Denies any bleeding or petechiae. GENITOURINARY: Denies any burning micturition, frequency, or urgency. MUSCULOSKELETAL/RHEUMATOLOGICAL: Denies any joint pain, swelling, or any muscle pain. ENDOCRINE: Denies any polyuria or polydipsia. Past Medical History Past Medical History: Coronary Artery Disease (CAD), COPD, Diabetes Mellitus, Hyperlipidemia, Hypertension, Myocardial Infarction (SC), Osteoarthritis (OA) Last Myocardial Infarction Date:: 12-23-16 History of Any Multi-Drug Resistant Organisms: None Reported Past Surgical History: Appendectomy, Cardiac Ablation, Heart Catheterization With Stent, Orthopedic Surgery Additional Past Surgical History / Comment(s): CARDIAC ABLATION FOR SVT, carpal tunnel surg, carotid artery Past Anesthesia/Blood Transfusion Reactions: No Reported Reaction Date of Last Stent Placement:: 12-23-16 Past Psychological History: No Psychological Hx Reported Smoking Status: Former smoker Past Alcohol Use History: Occasional Additional Past Alcohol Use History / Comment(s): quit smoking 8 yrs. ago, smoked 1ppd for 30 yrs. Past Drug Use History: None Reported - Past Family History Father Brother(s) Family Medical History: Cancer Additional Family Medical History / Comment(s): colon Medications and Allergies Home Medications Medication Instructions Recorded Confirmed Type Aspirin 81 mg PO DAILY #30 chew 12/26/16 09/08/18 Rx Atorvastatin [Lipitor] 80 mg PO HS #30 tab 12/26/16 09/08/18 Rx Carvedilol [Coreg] 6.25 mg PO BID-W/MEALS #60 tab 12/26/16 09/08/18 Rx Nitroglycerin Sl Tabs [Nitrostat] 0.4 mg SUBLINGUAL Q5M PRN #25 tab 12/26/16 09/08/18 Rx Spironolactone [Aldactone] 25 mg PO DAILY #30 tab 12/26/16 09/08/18 Rx metFORMIN HCL [Glucophage] 500 mg PO BID 12/07/17 09/08/18 History Ibuprofen [Motrin Ib] 400 - 600 mg PO Q6H PRN 09/08/18 09/08/18 History Lisinopril [Zestril] 10 mg PO BID 09/08/18 09/08/18 History Allergies Allergy/AdvReac Type Severity Reaction Status Date / Time No Known Allergies Allergy Verified 09/08/18 08:40 Physical Exam Vitals: Vital Signs Temp Pulse Resp BP Pulse Ox 09/08/18 10:15 99.5 F 92 20 126/67 95 09/08/18 09:36 99 09/08/18 09:25 99 09/08/18 08:54 114 H 24 148/88 89 L 09/08/18 07:50 101.7 F H 112 H 18 148/79 95 Intake and Output 09/07/18 09/08/18 09/08/18 22:59 06:59 14:59 Other: Weight 122.016 kg GENERAL: The patient is alert and oriented x3, not in any acute distress. Obese HEENT: Pupils are round and equally reacting to light. EOMI. No scleral icterus. No conjunctival pallor. Normocephalic, atraumatic. No pharyngeal erythema. No thyromegaly. CARDIOVASCULAR: S1 and S2 present. No murmurs, rubs, or gallops. PULMONARY: Chest is clear to auscultation, no wheezing or crackles. ABDOMEN: Soft, nontender, nondistended, normoactive bowel sounds. No palpable organomegaly. MUSCULOSKELETAL: No joint swelling or deformity. EXTREMITIES: No cyanosis, clubbing, or pedal edema. NEUROLOGICAL: Gross neurological examination did not reveal any focal deficits. SKIN: No rashes. Results CBC & Chem 7: 09/08/18 08:30 09/08/18 08:30 Labs: Abnormal Lab Results - Last 24 Hours (Table) 09/08/18 09/08/18 Range/Units 08:30 08:30 WBC 18.1 H (3.8-10.6) k/uL Neutrophils # 14.3 H (1.3-7.7) k/uL Monocytes # 1.5 H (0-1.0) k/uL Chloride 97 L (98-107) mmol/L BUN 54 H (9-20) mg/dL Creatinine 2.47 H (0.66-1.25) mg/dL Glucose 149 H (74-99) mg/dL Amylase 145 H (30-110) U/L Lipase 601 H (23-300) U/L Thrombosis Risk Factor Assmnt - Choose All That Apply Each Factor Represents 1 point: Abnormal pulmonary function (COPD), Age 41-60 years, Obesity (BMI >25), Serious lung disease incl. pneumonia (< 1month) Thrombosis Risk Factor Assessment Total Risk Factor Score: 4 Thrombosis Risk Factor Assessment Level: Moderate Risk Assessment and Plan Assessment: Abdominal pain, possible acute gastroenteritis Systemic inflammatory response with fever, leukocytosis and tachycardia. Possible retrocardiac infiltrate, suspicious for pneumonia, most likely aspiration pneumonia Sepsis, possibly secondary to abdominal infection versus pneumonia Acute hypoxic respiratory failure Acute kidney injury Elevated lipase Dehydration History of Coronary artery disease COPD, not an active issue Diabetes mellitus Hyperlipidemia Hypertension Osteoarthritis Plan: This is a pleasant 58 yrs old male who presents with pneumonia and gastroenteritis. Continue with antibiotics. Change ceftriaxone and Zithromax to ceftriaxone and clindamycin says there is suspicion of aspiration. IV hydration, symptomatic treatment, oxygen therapy, bronchodilator. C. diff: pending, follow-up blood and sputum culture. Labs and medication were reviewed.. Continue same treatment. Continue with symptomatic treatment. Resume home medication. Monitor lytes and vitals. DVT and GI prophylaxis. Further recommendations of the clinical course of the patient DVT prophylaxis: Subcutaneous heparin GI Prophylaxis: Pepcid Prognosis is guarded
[2018-09-08] MEDS: IPRATROPIUM-ALBUTEROL 3 ML NEB INHALATION SCH ×3 (11:41→19:37)
[2018-09-08] MEDS ORDERED: NITROGLYCERIN SL TABS 0.4 MG TAB SUBLINGUAL PRN (11:42)
[2018-09-08] MEDS: CLINDAMYCIN 150 MG CAP PO SCH ×3 (13:11→20:22)
[2018-09-08 17:11] LABS: Glucose,Whole Blood 146 mg/dL (75-99)
[2018-09-08 17:25] LABS: Appearance,Urine Cloudy (Clear); Bilirubin,Urine Negative (Negative); Blood,Urine Large (Negative); Color,Urine Yellow; Glucose,Urine (UA) Negative (Negative); Hyaline Casts,Urine 46 /lpf (0-2); Ketones,Urine Negative (Negative); Leukocyte Esterase,Urine Negative (Negative); Mucus,Urine Occasional /hpf; Nitrite,Urine Negative (Negative); Protein,Urine 1+ (Negative); RBC,Urine >182 /hpf (0-5); Specific Gravity,Urine 1.017 (1.001-1.035); Urobilinogen,Urine <2.0 mg/dL (<2.0)
[2018-09-08] MEDS: ACETAMINOPHEN TAB 325 MG TAB PO PRN (17:51)
[2018-09-08] MEDS: CARVEDILOL 6.25 MG TAB PO SCH (17:52)
[2018-09-08] MEDS: ATORVASTATIN 80 MG TAB PO SCH (20:21)
[2018-09-08] MEDS: HEPARIN SODIUM,PORCINE 5,000 UNIT/ML 1 ML VIAL SQ SCH (20:23)
[2018-09-08] MEDS: FAMOTIDINE 20 MG/2 ML VIAL IV SCH (20:24)
[2018-09-08 20:45] LABS: Glucose,Whole Blood 147 mg/dL (75-99)
[2018-09-09] MEDS: ACETAMINOPHEN TAB 325 MG TAB PO PRN ×4 (01:19→21:46)
[2018-09-09] MEDS: SODIUM CHLORIDE 0.9% 1,000 ML IV SCH ×3 (05:28→21:54)
[2018-09-09] MEDS: IPRATROPIUM-ALBUTEROL 3 ML NEB INHALATION SCH ×4 (07:27→18:52)
[2018-09-09 07:32] LABS: Glucose,Whole Blood 133 mg/dL (75-99)
--- NOTE | 2018-09-09 07:34 | XR ---
EXAMINATION TYPE: XR chest 2V DATE OF EXAM: 09/09/2018 COMPARISON: 09/08/2018 TECHNIQUE: PA and lateral views submitted. HISTORY: Shortness of breath FINDINGS: No pleural effusion or pneumothorax. Heart is prominent in size. No overt failure. Hyperinflation sug gests COPD. Hypertrophic and degenerative changes spine. Appears to be increased density in the later al view overlying the lower lumbar spine suspicious for a retrocardiac infiltrate. IMPRESSION: 1. There remains stable increased density in the lateral view within the lower lobe likely in the lef t retrocardiac region suspicious for a pneumonic infiltrate.
[2018-09-09 07:42] LABS: Basophils % (A) 0 %; Eosinophils # (A) 0.1 k/uL (0-0.7); Eosinophils % (A) 0 %; HCT 41.1 % (39.0-53.0); HGB 13.2 gm/dL (13.0-17.5); Lymphocytes # (A) 1.2 k/uL (1.0-4.8); Lymphocytes % (A) 10 %; MCH 28.9 pg (25.0-35.0); MCHC 32.2 g/dL (31.0-37.0); MCV 89.7 fL (80.0-100.0); Mean Platelet Volume 7.5; Monocytes % (A) 8 %; Neutrophils # (A) 9.3 k/uL (1.3-7.7); Neutrophils % (A) 78 %; Platelet Count 223 k/uL (150-450); RBC 4.58 m/uL (4.30-5.90); RDW 12.9 % (11.5-15.5)
[2018-09-09 08:02] LABS: Calcium 8.1 mg/dL (8.4-10.2); Potassium 4.2 mmol/L (3.5-5.1)
[2018-09-09] MEDS: CLINDAMYCIN 150 MG CAP PO SCH ×3 (08:59→21:49)
[2018-09-09] MEDS: FAMOTIDINE 20 MG/2 ML VIAL IV SCH ×2 (08:59→21:47)
[2018-09-09] MEDS: HEPARIN SODIUM,PORCINE 5,000 UNIT/ML 1 ML VIAL SQ SCH ×2 (09:00→21:47)
[2018-09-09] MEDS: CARVEDILOL 6.25 MG TAB PO SCH ×2 (09:00→18:13)
[2018-09-09] MEDS: ASPIRIN 81 MG PO SCH (09:00)
[2018-09-09] MEDS ORDERED: AZITHROMYCIN 500 MG TAB PO SCH (09:00)
[2018-09-09 12:20] LABS: Glucose,Whole Blood 110 mg/dL (75-99)
--- NOTE | 2018-09-09 13:46 | P.PN ---
Subjective This is a pleasant 58 years old male with past medical history of coronary artery disease, COPD, diabetes mellitus, hyperlipidemia, hypertension, os teoarthritis. Presents with abdominal pain for for 5 days duration. Started on Monday with abdominal pain all over his central abdomen was severe on the nonradiating, continuous blood coming down currently 2/10 associated with some nausea and vomiting about twice per day with no blood in it. He also he had diarrhea about every hour, lose and yellowish. However his last bowel movement was yesterday. Patient also benefit from dyspnea with dry cough. He feels generally weak with decreased appetite for the last 4-5 days. Vitas looks stable, however patient has fever of 101.7, he was a bit tachycardic and 112-114, currently is 92, however his oxygen saturations dropped to 18 9 on room air blood pressure 126/67, saturating 95% in 2 L. Labs showing leukocytosis of 18.1 K, resident of CBC was unremarkable. Creatinine is elevated at 2.4, baseline 0.6. Lipase is elevated at 601, influenza is negative. Chest x-ray showing possible retrocardiac infiltrate. Emergency room patient was started on ceftriaxone and Zithromax, he got Tylenol on apoprotein, Zofran, and 1 L of normal saline. Patient was started on normal saline at 100 mL per hour, 09/09/2018 Patient states that his cough and breathing are improving. He denies chest pain. Also his abdominal pain is resolving. He is tolerating liquid diet, no nausea vomiting. He had little of bowel movement but is to lose, yesterday he had 3 loose bowel movement. He is still running fever of 100.5 today. Rest of Vitas looks stable. Leukocytosis is improving from 18 down to 12 K. Creatinine improving from 2.4 down to 1.5. Urinalysis is suspicious for infection. C. diff is negative. Urine culture and blood culture are pending. We'll lower the dose of his clindamycin and continue with ceftriaxone as his pulmonary symptoms are improving and urinalysis is has suspicious of infection. Most likely patient have UTI. We'll order renal ultrasound and ask for infectious disease consult. Repeat chest x-ray, she still showing stable retrocardiac infiltrates Renal ultrasound: Pending Review of systems CONSTITUTIONAL: No fever, no malaise, no fatigue. HEENT: No recent visual problems or hearing problems. Denied any sore throat. CARDIOVASCULAR: No orthopnea, PND, no palpitations, no syncope. PULMONARY: No shortness of breath, no cough, no hemoptysis. GASTROINTESTINAL: No diarrhea, no nausea, no vomiting, no abdominal pain. Normoactive bowel sounds. NEUROLOGICAL: No headaches, no weakness, no numbness. HEMATOLOGICAL: Denies any bleeding or petechiae. MUSCULOSKELETAL/RHEUMATOLOGICAL: Denies any joint pain, swelling, or any muscle pain. ENDOCRINE: Denies any polyuria or polydipsia. Medication: Tylenol 650 mg, Wellbutrin 3 mg, aspirin 81 mg, Lipitor 80 mg, Coreg 6.25 mg, ceftriaxone 1000 mg, Pepcid 20 mg, heparin 5000 units, nitroglycerin 0.4 mg, no misalignment 75 L/h Objective - Vital Signs Vital signs: Vital Signs Temp 97.4 F L 09/09/18 04:40 Pulse 88 09/09/18 11:39 Resp 14 09/09/18 04:40 BP 154/84 09/09/18 04:40 Pulse Ox 92 L 09/09/18 04:40 Intake & Output 09/08/18 09/09/18 09/09/18 18:59 06:59 18:59 Intake Total 250 400 Balance 250 400 Weight 122.016 kg Intake: Intake, IV Titration 250 400 Amount Azithromycin 500 mg In 250 Sodium Chloride 0.9% 250 ml @ 250 mls/hr IVPB ONCE STA Rx#:[id number] Sodium Chloride 0.9% 1, 400 000 ml @ 100 mls/hr IV . Q10H [facility] Rx#:[id number] Other: Voiding Method Toilet # Voids 2 1 # Bowel Movements 1 - Exam GENERAL: The patient is alert and oriented x3, not in any acute distress. Well developed, well nourished. HEENT: Pupils are round and equally reacting to light. EOMI. No scleral icterus. No conjunctival pallor. Normocephalic, atraumatic. No pharyngeal erythema. No thyromegaly. CARDIOVASCULAR: S1 and S2 present. No murmurs, rubs, or gallops. PULMONARY: Chest is clear to auscultation, no wheezing or crackles. ABDOMEN: Soft, nontender, nondistended, normoactive bowel sounds. No palpable organomegaly. MUSCULOSKELETAL: No joint swelling or deformity. EXTREMITIES: No cyanosis, clubbing, or pedal edema. NEUROLOGICAL: Gross neurological examination did not reveal any focal deficits. SKIN: No rashes. - Labs CBC & Chem 7: 09/09/18 07:23 09/09/18 07:23 Labs: Abnormal Lab Results - Last 24 Hours (Table) 09/08/18 09/08/18 09/08/18 Range/Units 16:40 17:10 20:44 WBC (3.8-10.6) k/uL Neutrophils # (1.3-7.7) k/uL BUN (9-20) mg/dL Creatinine (0.66-1.25) mg/dL Glucose (74-99) mg/dL POC Glucose (mg/dL) 146 H 147 H (75-99) mg/dL Calcium (8.4-10.2) mg/dL Urine Protein 1+ H (Negative) Urine Blood Large H (Negative) Urine RBC >182 H (0-5) /hpf Urine WBC 15 H (0-5) /hpf Hyaline Casts 46 H (0-2) /lpf Urine Mucus Occasional H (None) /hpf 09/09/18 09/09/18 09/09/18 Range/Units 07:23 07:23 07:29 WBC 12.0 H (3.8-10.6) k/uL Neutrophils # 9.3 H (1.3-7.7) k/uL BUN 52 H (9-20) mg/dL Creatinine 1.51 H (0.66-1.25) mg/dL Glucose 122 H (74-99) mg/dL POC Glucose (mg/dL) 133 H (75-99) mg/dL Calcium 8.1 L (8.4-10.2) mg/dL Urine Protein (Negative) Urine Blood (Negative) Urine RBC (0-5) /hpf Urine WBC (0-5) /hpf Hyaline Casts (0-2) /lpf Urine Mucus (None) /hpf 09/09/18 Range/Units 12:18 WBC (3.8-10.6) k/uL Neutrophils # (1.3-7.7) k/uL BUN (9-20) mg/dL Creatinine (0.66-1.25) mg/dL Glucose (74-99) mg/dL POC Glucose (mg/dL) 110 H (75-99) mg/dL Calcium (8.4-10.2) mg/dL Urine Protein (Negative) Urine Blood (Negative) Urine RBC (0-5) /hpf Urine WBC (0-5) /hpf Hyaline Casts (0-2) /lpf Urine Mucus (None) /hpf Microbiology - Last 24 Hours (Table) 09/08/18 08:30 Blood Culture - Preliminary Blood No Growth after 24 hours 09/08/18 16:40 Urine Culture - Preliminary Urine,Voided Assessment and Plan Assessment: Acute urinary tract infection Abdominal pain, possible acute gastroenteritis. C. diff is negative Systemic inflammatory response with fever, leukocytosis and tachycardia. Possible retrocardiac infiltrate, suspicious for pneumonia, most likely aspiration pneumonia Sepsis, possibly secondary to abdominal infection versus pneumonia Acute hypoxic respiratory failure Acute kidney injury Elevated lipase Dehydration History of Coronary artery disease COPD, not an active issue Diabetes mellitus Hyperlipidemia Hypertension Osteoarthritis Plan: This is a pleasant 58 yrs old male who presents with pneumonia and UTI with possible gastroenteritis. Continue with antibiotics. Change ceftriaxone and Zithromax to ceftriaxone and clindamycin at lower dose as there is suspicion of aspiration. IV hydration, symptomatic treatment, oxygen therapy, bronchodilator. C. diff: Negative, follow-up blood and urine culture. Call infectious disease consult. Check renal ultrasound Labs and medication were reviewed.. Continue same treatment. Continue with symptomatic treatment. Resume home medication. Monitor lytes and vitals. DVT and GI prophylaxis. Further recommendations of the clinical course of the patient DVT prophylaxis: Subcutaneous heparin GI Prophylaxis: Pepcid Prognosis is guarded
--- NOTE | 2018-09-09 14:51 | US ---
EXAMINATION TYPE: US renals and bladder DATE OF EXAM: 09/09/2018 COMPARISON: NONE CLINICAL HISTORY: Possible pyelonephritis. Renal failure EXAM MEASUREMENTS: Right Kidney: 13.5 x 6.5 x 6.2 cm Left Kidney: 12.6 x 7.0 x 5.9 cm Right Kidney: Appeared wnl Left Kidney: No evidence of hydro, possible renal calcification mid/lateral= 9mm Bladder: wnl Bilateral Jets seen: Yes There is no evidence for hydronephrosis at this point in time. No nephrolithiasis is seen. No silvio s are identified. The urinary bladder is anechoic. Bilateral ureteral jets are seen. IMPRESSION: No evidence of renal mass or obstruction. Possible left renal calculus.
[2018-09-09 17:42] LABS: Glucose,Whole Blood 171 mg/dL (75-99)
[2018-09-09 20:54] LABS: Glucose,Whole Blood 112 mg/dL (75-99)
[2018-09-09] MEDS: ATORVASTATIN 80 MG TAB PO SCH (21:46)
--- NOTE | 2018-09-09 22:17 | CONS ---
CONSULTATION REASON FOR CONSULT: Renal failure. HISTORY OF PRESENT ILLNESS: Patient is a 58-year-old male who was admitted to the hospital with complaints of feeling weak and fatigued. The patient had been working outside on Monday and he has not been able to maintain adequate fluid intake. He has also had significant nausea and vomiting prior to admission. The patient denies any prior history of kidney disease. His serum creatinine on admission was 2.47 mg/dL. He is maintained on IV fluids. His creatinine is down to 1.5. Patient did admit to use of nonsteroidal anti- inflammatory agents prior to admission. He is maintained on ASHELY inhibitors as well at home prior to admission. PAST MEDICAL HISTORY: Significant for hypertension, coronary artery disease, type 2 diabetes, hyperlipidemia, osteoarthritis, hypertension. PAST SURGICAL HISTORY: Appendectomy, cardiac ablation, cardiac catheterization with coronary stent placement, and carotid artery surgery. SOCIAL HISTORY: Patient is a former smoker. No history of drug abuse or alcohol abuse. MEDICATIONS: Medications at home include Lipitor, Aspirin, Coreg, Aldactone, Nitrostat, metformin, Motrin, Zestril. ALLERGIES: None. REVIEW OF SYSTEMS: As per HPI. Other systems negative. PHYSICAL EXAMINATION: On examination, patient is comfortable, awake, alert, oriented x3, not in any acute distress. Blood pressure is 154/84, heart rate 80 per minute. Patient is afebrile. Examination of the heart S1, S2. Examination of the lungs, bilateral breath sounds are heard. Abdomen is soft, nontender. Exam of lower extremities shows no significant edema. P[employer] D[employer]ER exam is grossly intact. LABS: Show sodium of 137, potassium 4.2, chloride 100, BUN 52, serum creatinine 1.5, hemoglobin 13.2 g/dL. ASSESSMENT: 1. Acute kidney injury, mostly prerenal, currently significantly improved with IV hydration. Patient's UA shows 1+ protein with hyaline casts and RBCs. However, this will need to be repeated once renal function is improved and after hydration. 2. Volume depletion, currently improving post IV fluids. 3. History of hypertension, blood pressure controlled. Continue off of ASHELY inhibitors. PLAN: Check ultrasound of the kidneys. The patient is advised to avoid use of NSAIDs. Repeat labs in a.m. and repeat urinalysis tomorrow. Thank you for this consultation. We will continue to follow the patient with you during his hospitalization. MMODL / IJN: [id number] /
[2018-09-10] MEDS: CARVEDILOL 6.25 MG TAB PO SCH ×2 (05:30→18:33)
[2018-09-10] MEDS: ACETAMINOPHEN TAB 325 MG TAB PO PRN ×2 (05:30→21:08)
--- NOTE | 2018-09-10 06:34 | P.CONS ---
History of Present Illness - Reason for Consult Consult date: 09/09/18 Sepsis questionable pyelonephritis versus pneumonia Requesting physician: Ian E Sheet - Chief Complaint Abdominal pain and vomiting x 1 day - History of Present Illness Patient is a 58-year-old male presenting to the ER at [facility] chief complaints of nausea vomiting and abdominal pain and even before he presented to hospital patient is from repeat mostly in the epigastric area more of a dull aching to sharp pain and test about 6-7 out of 10 and no radiation with associated dry heaves vomiting and also has some diarrhea. Denies having any chest pain or shortness of breath with minimal cough and the sputum denies having difficulty urination or any burning of urine with the symptom for the patient has been evaluated by the physician on presentation hospital the patient did have a fever of 101F patient did have elevated white count of 18,000 with left lower lobe infiltrate and did have a positive UA the patient was initially started on Rocephin and Zithromax subsequently Zithromax was discontinued and vancomycin was added with concern for possible aspiration pneumonitis and infectious disease was consulted for further recommendation regarding antibiotic therapy Review of Systems Positive points has been mentioned in HPI rest of the systems negative Past Medical History Past Medical History: Coronary Artery Disease (CAD), COPD, Diabetes Mellitus, Hyperlipidemia, Hypertension, Myocardial Infarction (MD), Osteoarthritis (OA) Last Myocardial Infarction Date:: 12-23-16 History of Any Multi-Drug Resistant Organisms: None Reported Past Surgical History: Appendectomy, Cardiac Ablation, Heart Catheterization With Stent, Orthopedic Surgery Additional Past Surgical History / Comment(s): CARDIAC ABLATION FOR SVT, carpal tunnel surg, carotid artery Past Anesthesia/Blood Transfusion Reactions: No Reported Reaction Date of Last Stent Placement:: 12-23-16 Past Psychological History: No Psychological Hx Reported Smoking Status: Former smoker Past Alcohol Use History: Occasional Additional Past Alcohol Use History / Comment(s): quit smoking 8 yrs. ago, smoked 1ppd for 30 yrs. Past Drug Use History: None Reported - Past Family History Father Brother(s) Family Medical History: Cancer Additional Family Medical History / Comment(s): colon Medications and Allergies Home Medications Medication Instructions Recorded Confirmed Type Aspirin 81 mg PO DAILY #30 chew 12/26/16 09/08/18 Rx Atorvastatin [Lipitor] 80 mg PO HS #30 tab 12/26/16 09/08/18 Rx Carvedilol [Coreg] 6.25 mg PO BID-W/MEALS #60 tab 12/26/16 09/08/18 Rx Nitroglycerin Sl Tabs [Nitrostat] 0.4 mg SUBLINGUAL Q5M PRN #25 tab 12/26/16 09/08/18 Rx Spironolactone [Aldactone] 25 mg PO DAILY #30 tab 12/26/16 09/08/18 Rx metFORMIN HCL [Glucophage] 500 mg PO BID 12/07/17 09/08/18 History Ibuprofen [Motrin Ib] 400 - 600 mg PO Q6H PRN 09/08/18 09/08/18 History Lisinopril [Zestril] 10 mg PO BID 09/08/18 09/08/18 History Allergies Allergy/AdvReac Type Severity Reaction Status Date / Time No Known Allergies Allergy Verified 09/08/18 08:40 Physical Exam Vitals: Vital Signs Temp Pulse Pulse Resp BP Pulse Ox 09/09/18 15:41 99 16 09/09/18 15:29 95 16 95 09/09/18 13:00 98.9 F 93 16 117/66 98 09/09/18 11:39 88 09/09/18 11:20 84 09/09/18 07:40 88 09/09/18 07:27 80 09/09/18 04:40 97.4 F L 90 14 154/84 92 L 09/09/18 01:32 95 18 09/09/18 01:21 100.5 F H 09/08/18 20:05 100.9 F H 95 18 116/61 94 L 09/08/18 19:50 88 16 09/08/18 19:40 84 16 Intake and Output 09/09/18 09/09/18 09/09/18 06:59 14:59 22:59 Intake Total 950 Balance 950 Intake: Oral 950 Other: Voiding Method Toilet # Voids 2 2 GENERAL DESCRIPTION: Middle-aged male lying in bed, no distress. No tachypnea or accessory muscle of respiration use. HEENT: Shows Pallor , no scleral icterus. Oral mucous membrane is dry. No pharyngeal erythema or thrush NECK: Trachea central, no thyromegaly. LUNGS: Unlabored breathing. Decreased breath sound the bases. No wheeze or crackle. HEART: S1, S2, regular rate and rhythm. No loud murmur ABDOMEN: Soft, no tenderness , guarding or rigidity, no organomegaly EXTREMITIES: No edema of feet. SKIN: No rash, no masses palpable. NEUROLOGICAL: The patient is awake, alert, oriented x3, mood and affect normal Results CBC & Chem 7: 09/09/18 07:23 09/09/18 07:23 Labs: Abnormal Lab Results - Last 24 Hours (Table) 09/08/18 09/08/18 09/08/18 Range/Units 16:40 17:10 20:44 WBC (3.8-10.6) k/uL Neutrophils # (1.3-7.7) k/uL BUN (9-20) mg/dL Creatinine (0.66-1.25) mg/dL Glucose (74-99) mg/dL POC Glucose (mg/dL) 146 H 147 H (75-99) mg/dL Calcium (8.4-10.2) mg/dL Urine Protein 1+ H (Negative) Urine Blood Large H (Negative) Urine RBC >182 H (0-5) /hpf Urine WBC 15 H (0-5) /hpf Hyaline Casts 46 H (0-2) /lpf Urine Mucus Occasional H (None) /hpf 09/09/18 09/09/18 09/09/18 Range/Units 07:23 07:23 07:29 WBC 12.0 H (3.8-10.6) k/uL Neutrophils # 9.3 H (1.3-7.7) k/uL BUN 52 H (9-20) mg/dL Creatinine 1.51 H (0.66-1.25) mg/dL Glucose 122 H (74-99) mg/dL POC Glucose (mg/dL) 133 H (75-99) mg/dL Calcium 8.1 L (8.4-10.2) mg/dL Urine Protein (Negative) Urine Blood (Negative) Urine RBC (0-5) /hpf Urine WBC (0-5) /hpf Hyaline Casts (0-2) /lpf Urine Mucus (None) /hpf 09/09/18 Range/Units 12:18 WBC (3.8-10.6) k/uL Neutrophils # (1.3-7.7) k/uL BUN (9-20) mg/dL Creatinine (0.66-1.25) mg/dL Glucose (74-99) mg/dL POC Glucose (mg/dL) 110 H (75-99) mg/dL Calcium (8.4-10.2) mg/dL Urine Protein (Negative) Urine Blood (Negative) Urine RBC (0-5) /hpf Urine WBC (0-5) /hpf Hyaline Casts (0-2) /lpf Urine Mucus (None) /hpf Microbiology - Last 24 Hours (Table) 09/08/18 08:30 Blood Culture - Preliminary Blood No Growth after 24 hours 09/08/18 16:40 Urine Culture - Preliminary Urine,Voided Assessment and Plan Assessment: 1-patient presented to hospital with sepsis in this patient who did have a fever and elevated white count predominantly GI symptoms of abdominal pain and nausea vomiting with concern for possible abdominal source, though the patient did have a positive UA and a left lower lobe infiltrate however the patient did not have significant urinary or pulmonary symptoms to make those to the likely source of his fever and sepsis Plan: 1-we will obtain a CT of abdominal pelvis with oral contrast only to rule out any underlying abdominal pathology 2-patient to continue with Rocephin however discontinue the clindamycin and Flagyl 3-IV fluid we will follow up on clinical condition and cultures to further adjust medication if needed Thank you for this consultation will follow this patient along with you Time with Patient: Greater than 30
[2018-09-10 07:29] LABS: Glucose,Whole Blood 127 mg/dL (75-99)
[2018-09-10] MEDS: FAMOTIDINE 20 MG/2 ML VIAL IV SCH ×2 (07:56→21:10)
[2018-09-10] MEDS: HEPARIN SODIUM,PORCINE 5,000 UNIT/ML 1 ML VIAL SQ SCH ×2 (07:56→21:09)
[2018-09-10] MEDS: IOPAMIDOL-300 CONTRAST 30 ML VIAL (ORAL USE) PO PRN ×2 (07:57→09:00)
[2018-09-10 08:12] LABS: Basophils % (A) 1 %; Eosinophils # (A) 0.3 k/uL (0-0.7); Eosinophils % (A) 3 %; HCT 38.2 % (39.0-53.0); HGB 12.5 gm/dL (13.0-17.5); Lymphocytes # (A) 1.3 k/uL (1.0-4.8); Lymphocytes % (A) 13 %; MCH 28.4 pg (25.0-35.0); MCHC 32.6 g/dL (31.0-37.0); Mean Platelet Volume 8.1; Monocytes # (A) 0.7 k/uL (0-1.0); Monocytes % (A) 7 %; Neutrophils # (A) 7.2 k/uL (1.3-7.7); Neutrophils % (A) 73 %; Platelet Count 225 k/uL (150-450); RBC 4.39 m/uL (4.30-5.90); RDW 13.5 % (11.5-15.5); WBC 9.8 k/uL (3.8-10.6)
[2018-09-10 08:28] LABS: African American GFR (CKD) >90 (>60 ml/min/1.73 sqM); Anion Gap 8 mmol/L; Blood Urea Nitrogen 21 mg/dL (9-20); Calcium 8.6 mg/dL (8.4-10.2); Carbon Dioxide 32 mmol/L (22-30); Chloride 99 mmol/L (98-107); Glucose 124 mg/dL (74-99); Potassium 4.1 mmol/L (3.5-5.1); Sodium 139 mmol/L (137-145)
[2018-09-10 09:14] LABS: Appearance,Urine Clear (Clear); Bilirubin,Urine Negative (Negative); Blood,Urine Small (Negative); Color,Urine Yellow; Glucose,Urine (UA) Negative (Negative); Ketones,Urine Negative (Negative); Leukocyte Esterase,Urine Negative (Negative); Mucus,Urine Rare /hpf; Nitrite,Urine Negative (Negative); PH, Urine 6.5 (5.0-8.0); Protein,Urine Trace (Negative); RBC,Urine 3 /hpf (0-5); Specific Gravity,Urine 1.015 (1.001-1.035); Urobilinogen,Urine <2.0 mg/dL (<2.0); WBC,Urine 3 /hpf (0-5)
[2018-09-10] MEDS: IPRATROPIUM-ALBUTEROL 3 ML NEB INHALATION SCH ×4 (09:25→20:20)
[2018-09-10] MEDS: SODIUM CHLORIDE 0.9% 1,000 ML IV SCH ×2 (11:18→21:11)
[2018-09-10] MEDS: metroNIDAZOLE 500 MG TAB PO SCH ×3 (11:19→21:09)
[2018-09-10] MEDS: ASPIRIN 81 MG PO SCH (11:19)
[2018-09-10 11:25] LABS: Glucose,Whole Blood 152 mg/dL (75-99)
--- NOTE | 2018-09-10 12:36 | PN ---
PROGRESS NOTE Patient is seen for followup for acute kidney injury which was main prerenal. He is maintained on IV fluids. Renal function has improved. Renal function had improved significantly as of yesterday with serum creatinine down to 1.5 mg/dL. However, patient developed a fever of 102 degrees Fahrenheit. He continues to have diarrhea. C diff toxin was negative. Stool culture is currently pending. The patient will be going down for a CAT scan of the abdomen. This morning, blood pressure was 179/91, heart rate 111 per minute, temperature 102.8. Examination of the heart S1, S2. Examination of the lungs, bilateral breath sounds are heard. Abdomen is soft, nontender, obese. Examination of the lower extremities shows no significant edema. [employer] exam is grossly intact. LABS: Show hemoglobin 12.5, sodium 139, potassium 4.1, BUN 21, serum creatinine 0.98. UA shows trace protein. Small blood compared to large blood previously. No significant RBCs or WBCs noted. ASSESSMENT: 1. Acute kidney injury, prerenal, currently significantly improved. Continue with IV fluids. 2. Fever, most likely abdominal source, maintained on empiric antibiotics, going down for CT of the abdomen. Clostridium difficile toxin currently negative. 3. Diarrhea, currently being worked up, possibly viral. 4. Hypertension, controlled. PLAN: Continue IV fluids. Avoid nephrotoxic agents. Repeat labs in a.m. MMODL / IJN: [id number] /
--- NOTE | 2018-09-10 15:38 | P.PN ---
Subjective Progress Note Date: 09/10/18 Principal diagnosis: This is a pleasant 58-year-old male who was admitted for nausea, vomiting, diarrhea, and severe abdominal pain. Patient denies any abdominal pain at this time and has been tolerating full liquids with no nausea or vomiting. Patient is still having diarrhea today. Patient had a fever last night of 102.8 F and was given Tylenol. Patient is currently 99.1 F. patient denies any shortness of breath, chest pain, or cough at this time. Patient is being closely monitored. Patient had a CT of the abdomen done today. Objective - Vital Signs Vital signs: Vital Signs Temp 99.1 F 09/10/18 11:50 Pulse 95 09/10/18 11:50 Resp 20 09/10/18 11:50 BP 151/78 09/10/18 11:50 Pulse Ox 92 L 09/10/18 11:50 Intake & Output 09/09/18 09/10/18 09/10/18 18:59 06:59 18:59 Intake Total 950 1200 Balance 950 1200 Intake: Intake, IV Titration 1200 Amount Sodium Chloride 0.9% 1, 1200 000 ml @ 75 mls/hr IV . [id number] [facility] Rx#:[id number] Oral 950 Other: Voiding Method Toilet # Voids 2 2 3 # Bowel Movements 1 - Exam On exam, patient is alert and oriented to 3, sitting up on the bed comfortably, and in no apparent distress. Heent: conjunctivae normal, EOMs intact Neck: supple, no JVD noted Cardiovascular: S1, S2 heard, no murmurs or rubs noted Respiratory: Lung sounds clear bilaterally with no wheezing noted Abdomen: soft, non-tender, obese, bowel sounds normal in all four quadrants Legs: no swelling or edema noted on exam Nervous system: no focal deficits, gait steady Skin: no rashes or lesions noted Labs: WBC 9.8, hgb 12.5, sodium 139, glucose 152 Assessment: Acute urinary tract infection Abdominal pain, possible acute gastroenteritis. Computed tomography scan of the abdomen is pending. Urine culture, stool culture, blood cultures are negative Systemic inflammatory response with fever, leukocytosis, and tachycardia Possible retrocardiac infiltrate, suspicious for pneumonia, most likely aspiration pneumonia Sepsis, possibly secondary to abdominal infection versus pneumonia Acute hypoxic respiratory failure Acute kidney injury Elevated lipase Dehydration History of coronary artery disease COPD, not an active issue Diabetes mellitus Hyperlipidemia Hypertension Osteoarthritis Recommendations and Discussion: Will recommend continuing current medications, medical management, and symptomatic management while monitoring the patient closely. Continue with IV fluid hydration along with full liquid diet and advance as tolerated. Pending CT results of the abdomen at this time. Will follow up with report. Urine culture is negative, c-diff is negative, and blood cultures are negative at this time. Will continue current IV antibiotics. Monitor blood sugars and labs to ensure they are trending down. Prognosis is guarded at this time. Further recom mendations to follow. - Constitutional General appearance: Present: no acute distress, obese - EENT Eyes: Present: PERRLA - Respiratory Respiratory: bilateral: CTA - Labs CBC & Chem 7: 09/10/18 07:35 09/10/18 07:35 Labs: Abnormal Lab Results - Last 24 Hours (Table) 09/09/18 09/09/18 09/10/18 Range/Units 17:39 20:52 07:17 Hgb (13.0-17.5) gm/dL Hct (39.0-53.0) % Carbon Dioxide (22-30) mmol/L BUN (9-20) mg/dL Glucose (74-99) mg/dL POC Glucose (mg/dL) 171 H 112 H 127 H (75-99) mg/dL Urine Protein (Negative) Urine Blood (Negative) Urine Mucus (None) /hpf 09/10/18 09/10/18 09/10/18 Range/Units 07:35 07:35 08:05 Hgb 12.5 L (13.0-17.5) gm/dL Hct 38.2 L (39.0-53.0) % Carbon Dioxide 32 H (22-30) mmol/L BUN 21 H (9-20) mg/dL Glucose 124 H (74-99) mg/dL POC Glucose (mg/dL) (75-99) mg/dL Urine Protein Trace H (Negative) Urine Blood Small H (Negative) Urine Mucus Rare H (None) /hpf 09/10/18 Range/Units 11:18 Hgb (13.0-17.5) gm/dL Hct (39.0-53.0) % Carbon Dioxide (22-30) mmol/L BUN (9-20) mg/dL Glucose (74-99) mg/dL POC Glucose (mg/dL) 152 H (75-99) mg/dL Urine Protein (Negative) Urine Blood (Negative) Urine Mucus (None) /hpf Microbiology - Last 24 Hours (Table) 09/10/18 05:55 Stool Culture - Preliminary Stool 09/08/18 08:30 Blood Culture - Preliminary Blood No Growth after 48 hours 09/08/18 16:40 Urine Culture - Final Urine,Voided
[2018-09-10 17:12] LABS: Hemoglobin A1C 6.7 % (4.0-6.0)
[2018-09-10 17:24] LABS: Glucose,Whole Blood 114 mg/dL (75-99)
--- NOTE | 2018-09-10 17:43 | CT ---
EXAMINATION TYPE: CT abdomen pelvis wo con DATE OF EXAM: 09/10/2018 COMPARISON: None INDICATION: Nausea, vomiting, diarrhea, and generalized abdominal pain. DLP: 1088.1 mGycm, Automated exposure control for dose reduction was used. CONTRAST: None Study performed with Oral Contrast TECHNIQUE: Axial images were obtained from above the diaphragm to the pubic rami in the axial plane a t 5 mm thick sections. Reconstructed images are reviewed on the computer in the coronal plane. FINDINGS: Limited CT sections are obtained the lung bases. There is a consolidation in the posterior left lung base suggestive for pneumonia. Clinical correlation is recommended. This should be followed to clear ing.. CT ABDOMEN: There is a periumbilical hernia containing mesenteric fat. Liver: Normal Spleen: Normal Pancreas: Normal Adrenal glands: The adrenal glands are normal. Gallbladder: Normal Kidneys: No masses are evident. No hydronephrosis is present. No cysts are present. No renal stone s are identified. Aorta: Vascular calcification is within the aorta Inferior vena cava: Normal. CT PELVIS: Loops of bowel within the abdomen and pelvis are normal. There are loops of bowel which are incom pletely distended or lack oral contrast limiting their evaluation. Diverticuli are present within the hepatic flexure and within the descending colon. Multiple diverticuli are within the sigmoid colon. Appendix: Not identified. Correlate with surgical history. No suspicious dilated tubular structures o r inflammatory changes are evident. Urinary bladder: Normal. Genitourinary structures: Prostate is normal Osseous structures: No suspicious lytic or sclerotic lesions. IMPRESSIONS: 1. Diverticulosis without acute diverticulitis. 2. Large consolidation posterior left lung base. Correlate for pneumonia. This should be followed to clearing. 3. Small Periumbilical hernia containing mesenteric fat.
--- NOTE | 2018-09-10 19:14 | PN ---
PROGRESS NOTE DATE OF SERVICE: 09/10/2018. REASON FOR FOLLOWUP: Fever, fluid. INTERVAL HISTORY: The patient did spike a fever of 102.8 early this morning. The patient afebrile since then. The patient abdominal pain is currently resolved. No further nausea, vomiting, or any diarrhea. Denies any chest pain or shortness of breath. Occasional cough. No urinary symptoms. PHYSICAL EXAMINATION: Blood pressure 151/78 with a pulse of 95, temperature 98.1. T-Max is 102. He is 92% on room air. General description is a middle-aged male lying in bed in no distress. Respiratory system: Unlabored breathing, clear to auscultation anteriorly. Heart S1, S2. Regular rate and rhythm. Abdomen soft. No tenderness. Extremities: No edema of the feet. LABS: Hemoglobin is 12.4, white count 10.8 with a BUN of 21, creatinine 0.98. DIAGNOSTIC IMPRESSION AND PLAN: Patient admitted to the hospital with abdominal pain. No nausea, vomiting and no diarrhea. Question of possible acute viral gastritis versus other intraabdominal sources. A CT abdomen and pelvis has been ordered, results currently pending. We will keep the patient on Rocephin and Flagyl while waiting for the culture to finalize. Continue supportive care. MMODL / IJN: [id number] /
[2018-09-10 20:44] LABS: Glucose,Whole Blood 162 mg/dL (75-99)
[2018-09-10 21:04] VITALS: RESP 18
[2018-09-10] MEDS: ATORVASTATIN 80 MG TAB PO SCH (21:09)
[2018-09-11] MEDS: ACETAMINOPHEN TAB 325 MG TAB PO PRN (06:25)
[2018-09-11 07:03] LABS: Glucose,Whole Blood 116 mg/dL (75-99)
[2018-09-11] MEDS: FAMOTIDINE 20 MG/2 ML VIAL IV SCH (08:59)
[2018-09-11] MEDS: CARVEDILOL 6.25 MG TAB PO SCH (09:00)
[2018-09-11] MEDS: HEPARIN SODIUM,PORCINE 5,000 UNIT/ML 1 ML VIAL SQ SCH (09:00)
[2018-09-11] MEDS: ASPIRIN 81 MG PO SCH (09:00)
[2018-09-11] MEDS: metroNIDAZOLE 500 MG TAB PO SCH (09:00)
[2018-09-11] MEDS: IPRATROPIUM-ALBUTEROL 3 ML NEB INHALATION SCH ×2 (09:17→13:07)
[2018-09-11 09:34] LABS: Basophils % (A) 1 %; Eosinophils # (A) 0.3 k/uL (0-0.7); Eosinophils % (A) 3 %; HCT 38.8 % (39.0-53.0); HGB 12.4 gm/dL (13.0-17.5); Lymphocytes # (A) 1.7 k/uL (1.0-4.8); Lymphocytes % (A) 18 %; MCH 27.9 pg (25.0-35.0); MCHC 31.9 g/dL (31.0-37.0); MCV 87.5 fL (80.0-100.0); Mean Platelet Volume 7.8; Monocytes # (A) 0.8 k/uL (0-1.0); Monocytes % (A) 9 %; Neutrophils # (A) 5.9 k/uL (1.3-7.7); Neutrophils % (A) 66 %; Platelet Count 251 k/uL (150-450); RBC 4.44 m/uL (4.30-5.90); RDW 13.5 % (11.5-15.5)
[2018-09-11 09:54] LABS: African American GFR (CKD) >90 (>60 ml/min/1.73 sqM); Anion Gap 7 mmol/L; Blood Urea Nitrogen 14 mg/dL (9-20); Calcium 8.8 mg/dL (8.4-10.2); Carbon Dioxide 35 mmol/L (22-30); Chloride 99 mmol/L (98-107); Glucose 116 mg/dL (74-99); Sodium 141 mmol/L (137-145)
[2018-09-11 12:10] LABS: Glucose,Whole Blood 159 mg/dL (75-99)
[2018-09-11 12:36] VITALS: BP 155/82; TEMP 98.9
--- NOTE | 2018-09-11 13:17 | P.DS ---
Providers Date of admission: 09/08/18 09:25 Expected date of discharge: 09/11/18 Attending physician: Ian Rojas MD Consults: 09/08/18 09:23 Consult Physician Routine Consulting Provider: Vanda Driscoll Consult Reason/Comments: Acute renal failure Do you want consulting provider notified?: Yes 09/09/18 13:41 Consult Physician Urgent Consulting Provider: Lidya Caballero Consult Reason/Comments: Sepsis, possible pyelonephritis, possible aspiration pneumonia Do you want consulting provider notified?: Yes Primary care physician: Deidre [facility] Course: Final diagnosis Abdominal pain, possible acute gastroenteritis Acute kidney injury Acute hypoxic respiratory failure Systemic inflammatory response with fever, leukocytosis, and tachycardia Possible retrocardiac infiltrate, suspicious for pneumonia most likely aspiration pneumonia Sepsis, possibly secondary to abdominal infection versus pneumonia Elevated lipase dehydration Acute urinary tract infection History of coronary artery disease History of COPD, not an active issue Diabetes mellitus Hyperlipidemia Hypertension Osteoarthritis Diverticulosis History of periumbilical hernia Discharge disposition The patient is being discharged in stable condition with guarded prognosis to home and instructed to follow-up with primary care provider as well as Dr. Caballero this week. Total time taken is 30 minutes. Patient will go home with oral antibiotics per infectious disease and will follow-up in one week History of present illness This is a 56-year-old male who was admitted for multiple medical problems as mentioned earlier that was being closely followed along with infectious disease. Patient appears in no distress and denies any nausea or vomiting with last reported bout of diarrhea yesterday. Patient is tolerating full liquids and has advanced diet. Patient was treated with IV antibiotics and will go home on oral antibiotics per infectious disease. CAT scan of the abdomen done yesterday reveals diverticulosis without acute diverticulitis, large consolidation posterior left lung base, correlate for pneumonia, and small periumbilical hernia containing mesenteric fat. Final cultures of the blood, urine, and stool are still pending but have been negative thus far. Patient is currently stable and has much improved. Patient being discharged home in a stable condition with a guarded prognosis. On exam vitals are stable. Cardio S1 and S2 normal. Respiratory is clear to auscultation. Abdomen is soft and non-tender. Nervous system displays no focal deficits, gait is steady. Please refer to the medication reconciliation sheet for list of medications. Plan - Discharge Summary Discharge Rx Participant: Yes New Discharge Prescriptions: New Cefuroxime Axetil [Ceftin] 500 mg PO BID #14 tab Continue Aspirin 81 mg PO DAILY #30 chew Atorvastatin [Lipitor] 80 mg PO HS #30 tab Carvedilol [Coreg] 6.25 mg PO BID-W/MEALS #60 tab Nitroglycerin Sl Tabs [Nitrostat] 0.4 mg SUBLINGUAL Q5M PRN #25 tab PRN Reason: Chest Pain Spironolactone [Aldactone] 25 mg PO DAILY #30 tab metFORMIN HCL [Glucophage] 500 mg PO BID Lisinopril [Zestril] 10 mg PO BID Ibuprofen [Motrin Ib] 400 - 600 mg PO Q6H PRN PRN Reason: Pain Discharge Medication List Aspirin 81 mg PO DAILY #30 chew 12/26/16 [Rx] Atorvastatin [Lipitor] 80 mg PO HS #30 tab 12/26/16 [Rx] Carvedilol [Coreg] 6.25 mg PO BID-W/MEALS #60 tab 12/26/16 [Rx] Nitroglycerin Sl Tabs [Nitrostat] 0.4 mg SUBLINGUAL Q5M PRN #25 tab 12/26/16 [Rx] Spironolactone [Aldactone] 25 mg PO DAILY #30 tab 12/26/16 [Rx] metFORMIN HCL [Glucophage] 500 mg PO BID 12/07/17 [History] Ibuprofen [Motrin Ib] 400 - 600 mg PO Q6H PRN 09/08/18 [History] Lisinopril [Zestril] 10 mg PO BID 09/08/18 [History] Cefuroxime Axetil [Ceftin] 500 mg PO BID #14 tab 09/11/18 [Rx] Follow up Appointment(s)/Referral(s): Deidre Maddox MD [Primary Care Provider] - 1-2 days Lidya Caballero MD [STAFF PHYSICIAN] - 1 Week Activity/Diet/Wound Care/Special Instructions: Activity Limited until follow-up Continue with current diet and advance as tolerated Monitor temperature and assess for fevers, may use Tylenol or Motrin alternated Follow-up with primary care provider in 1-2 days Discharge Disposition: HOME SELF-CARE
[2018-09-11 13:18] VITALS: PULSE 72
--- NOTE | 2018-09-11 14:22 | PN ---
PROGRESS NOTE DATE OF SERVICE: 09/11/2018 REASON FOR FOLLOWUP: Left lower lobe pneumonia. INTERVAL HISTORY: The patient is currently afebrile. The patient has been breathing comfortably. He has a very minimal cough, just drainage, cannot bring up any sputum. No chest pain, no nausea, no vomiting,'no abdominal pain, no diarrhea. PHYSICAL EXAMINATION: Blood pressure 155/80 with a pulse of 67, temperature 98.9. He is 95% on room air: General description is a middle-aged male up in the bed in no distress. RESPIRATORY SYSTEM: Unlabored breathing with decreased breath sounds at the bases. No wheeze. HEART: S1, S2. Regular rate and rhythm. ABDOMEN: Soft, no tenderness. LABS: White count normal at 9.0, BUN of 14, creatinine 0.85. Blood culture has been negative. Stool culture negative. CT of the abdomen and pelvis did show left lower lobe pneumonia. DIAGNOSTIC IMPRESSION/PLAN: Patient adimitted to the hospital with abdominal pain, nausea and vomiting. The patient did have underlying basilar pneumonia . Antibiotic will be switched/: The patient is a patient with antibiotic will be switched to Ceftin for another week and close outpatient follow. Continue supportive care. MMODL / IJN: [id number] /
== END 2018-09-11 14:32 | disposition home or self-care (01) | DRG 871 ==
LOC: EC 07:48 → 3NMEDONC 09:25
PROVIDERS: ADMIT Internal Medicine; ATTEND Internal Medicine
DX: A41.9 Sepsis, unspecified organism (principal); J69.0 Pneumonitis due to inhalation of food and vomit; J96.01 Acute respiratory failure with hypoxia; J44.0 Chronic obstructive pulmonary disease with (acute) lower respiratory infection; N17.9 Acute kidney failure, unspecified; N39.0 Urinary tract infection, site not specified; K52.9 Noninfective gastroenteritis and colitis, unspecified; E11.9 Type 2 diabetes mellitus without complications; E66.9 Obesity, unspecified; E78.5 Hyperlipidemia, unspecified; E86.0 Dehydration; I10 Essential (primary) hypertension; I25.10 Atherosclerotic heart disease of native coronary artery without angina pectoris; I25.2 Old myocardial infarction; I45.10 Unspecified right bundle-branch block; K57.90 Diverticulosis of intestine, part unspecified, without perforation or abscess without bleeding; M19.90 Unspecified osteoarthritis, unspecified site; R74.8 Abnormal levels of other serum enzymes; Z68.37 Body mass index [BMI] 37.0-37.9, adult; Z87.891 Personal history of nicotine dependence; Z95.5 Presence of coronary angioplasty implant and graft; Z79.82 Long term (current) use of aspirin; Z79.84 Long term (current) use of oral hypoglycemic drugs; Z79.899 Other long term (current) drug therapy; Z90.49 Acquired absence of other specified parts of digestive tract; Z80.9 Family history of malignant neoplasm, unspecified
CPT/HCPCS: 36415; 71046; 74176; 76770; 80048; 80053; 81001; 82150; 83036; 83605; 83690; 85025; 87040; 87045; 87046; 87086; 87324; 87502; 93005; 94640; 94760; 96361; 96374; 99285

== ENCOUNTER → 2018-09-25 | Outpatient (CLI) | payer BC ==
--- NOTE | 2018-09-25 16:09 | XR ---
EXAMINATION TYPE: XR chest 2V DATE OF EXAM: 09/25/2018 COMPARISON: Prior chest x-ray 09/09/2018 HISTORY: Pneumonia TECHNIQUE: Frontal and lateral views of the chest are obtained. FINDINGS: There is no focal air space opacity, pleural effusion, or pneumothorax seen. The cardiac silhouette size is within normal limits. The osseous structures are intact. IMPRESSION: No acute cardiopulmonary process. Interval improvement in patient's pneumonia.
== END | disposition home or self-care (01) ==
LOC: RADXRMAIN 14:40
PROVIDERS: ATTEND Family Medicine
DX: J18.9 Pneumonia, unspecified organism (principal)
CPT/HCPCS: 71046

== ENCOUNTER 2019-05-02 04:11 | Inpatient (IN) | payer BC ==
[2019-05-02] MEDS ORDERED: NITROGLYCERIN OINT 1 INCH/GM PACKET TOPICAL ONE (05:10)
[2019-05-02] MEDS ORDERED: ASPIRIN 325 MG TAB ONE (05:10)
[2019-05-02] MEDS ORDERED: LISINOPRIL 10 MG TAB ONE (05:10)
[2019-05-02] MEDS ORDERED: ASPIRIN 325 MG TAB PO ONE (05:10)
[2019-05-02] MEDS ORDERED: ALBUTEROL NEB (CONC) 2.5 MG/0.5 ML INHALATION ONE (05:10)
[2019-05-02] MEDS ORDERED: LISINOPRIL 10 MG TAB PO ONE (05:10)
[2019-05-02] MEDS ORDERED: ALBUTEROL NEBULIZED 2.5 MG/3 ML INHALATION ONE (05:27)
[2019-05-02 05:40] LABS: Basophils # (A) 0.1 k/uL (0-0.2); Basophils % (A) 0 %; Eosinophils # (A) 0.2 k/uL (0-0.7); Eosinophils % (A) 1 %; HCT 49.6 % (39.0-53.0); HGB 15.6 gm/dL (13.0-17.5); Lymphocytes % (A) 14 %; MCHC 31.4 g/dL (31.0-37.0); MCV 92.2 fL (80.0-100.0); Mean Platelet Volume 8.3; Monocytes # (A) 0.9 k/uL (0-1.0); Monocytes % (A) 6 %; Neutrophils # (A) 11.1 k/uL (1.3-7.7); Neutrophils % (A) 77 %; Platelet Count 229 k/uL (150-450); RBC 5.38 m/uL (4.30-5.90); RDW 12.7 % (11.5-15.5); WBC 14.5 k/uL (3.8-10.6)
[2019-05-02 05:44] LABS: ALT 47 U/L (4-49); AST 41 U/L (17-59); African American GFR (CKD) >90 (>60 ml/min/1.73 sqM); Albumin 4.3 g/dL (3.5-5.0); Alkaline Phosphatase 59 U/L (38-126); Anion Gap 6 mmol/L; Blood Urea Nitrogen 16 mg/dL (9-20); Calcium 9.4 mg/dL (8.4-10.2); Carbon Dioxide 34 mmol/L (22-30); Chloride 103 mmol/L (98-107); Glucose 159 mg/dL (74-99); Non-African American GFR(CKD) >90 (>60 ml/min/1.73 sqM); Potassium 4.5 mmol/L (3.5-5.1); Sodium 143 mmol/L (137-145); Total Bilirubin 0.7 mg/dL (0.2-1.3); Total Protein 7.1 g/dL (6.3-8.2)
[2019-05-02 05:45] LABS: Creatine Kinase MB 2.9 ng/mL (0.0-2.4); Troponin I 0.055 ng/mL (0.000-0.034)
[2019-05-02 05:46] LABS: D-Dimer 0.49 mg/L FEU (<0.60); INR 1.1 (<1.2); Partial Thromboplastin Time 23.7 sec (22.0-30.0)
[2019-05-02 05:48] LABS: Appearance,Urine Clear (Clear); Bilirubin,Urine Negative (Negative); Blood,Urine Negative (Negative); Color,Urine Yellow; Glucose,Urine (UA) Negative (Negative); Ketones,Urine Negative (Negative); Leukocyte Esterase,Urine Negative (Negative); Mucus,Urine Few /hpf; Nitrite,Urine Negative (Negative); PH, Urine 5.5 (5.0-8.0); Protein,Urine 1+ (Negative); RBC,Urine <1 /hpf (0-5); Specific Gravity,Urine 1.028 (1.001-1.035); Urobilinogen,Urine <2.0 mg/dL (<2.0); WBC,Urine 1 /hpf (0-5)
[2019-05-02] MEDS ORDERED: NITROGLYCERIN SL TABS 0.4 MG TAB SUBLINGUAL PRN (06:03)
[2019-05-02] MEDS ORDERED: IBUPROFEN 600 MG TAB PO PRN (06:07)
--- NOTE | 2019-05-02 06:40 | XR ---
EXAM: XR Chest, 2 Views CLINICAL HISTORY: Patient presents with chest pain and SOB. TECHNIQUE: Frontal and lateral views of the chest. COMPARISON: No relevant prior studies available. FINDINGS: Lungs: Mild increased opacification in the left lower lobe, atelectasis versus pneumonia. Lung hyperinflation suggesting COPD or asthma. Pleural space: Mild pleural thickening. No pneumothorax. Heart: No cardiomegaly. Mediastinum: Unremarkable. Bones/joints: Unremarkable. IMPRESSION: Mild increased opacification in the left lower lobe, atelectasis versus pneumonia.
[2019-05-02] MEDS: SPIRONOLACTONE 25 MG TAB PO SCH (08:51)
[2019-05-02] MEDS: LISINOPRIL 10 MG TAB PO SCH ×2 (08:51→20:08)
[2019-05-02] MEDS: CARVEDILOL 6.25 MG TAB PO SCH ×2 (08:51→17:41)
[2019-05-02] MEDS: ASPIRIN 81 MG PO SCH (08:52)
[2019-05-02] MEDS ORDERED: metFORMIN 500 MG TAB PO SCH (09:00)
[2019-05-02 10:36] VITALS: BMI 42.0
[2019-05-02 11:53] LABS: Glucose,Whole Blood 115 mg/dL (75-99)
[2019-05-02] MEDS ORDERED: HEPARIN SODIUM,PORCINE 5,000 UNIT/ML 1 ML VIAL IV PRN (12:06)
[2019-05-02] MEDS: HEPARIN SOD,PORK IN 0.45% NACL 25,000 UNIT in 0.45% NACL 1 250ML.BAG IV SCH (12:23)
[2019-05-02 12:29] LABS: Basophils % (A) 0 %; Eosinophils # (A) 0.3 k/uL (0-0.7); Eosinophils % (A) 2 %; HCT 46.4 % (39.0-53.0); HGB 14.5 gm/dL (13.0-17.5); Lymphocytes # (A) 2.6 k/uL (1.0-4.8); Lymphocytes % (A) 23 %; MCHC 31.3 g/dL (31.0-37.0); MCV 92.6 fL (80.0-100.0); Mean Platelet Volume 8.6; Monocytes # (A) 0.7 k/uL (0-1.0); Monocytes % (A) 6 %; Neutrophils # (A) 7.7 k/uL (1.3-7.7); Neutrophils % (A) 66 %; Platelet Count 220 k/uL (150-450); RBC 5.01 m/uL (4.30-5.90); RDW 12.6 % (11.5-15.5); WBC 11.6 k/uL (3.8-10.6)
--- NOTE | 2019-05-02 12:38 | P.CRDCN ---
History of Present Illness Consult date: 05/02/19 Requesting physician: Leslee Meredith Consult reason: chest pain, shortness of breath Chief complaint: Chest pain, shortness of breath History of present illness: This is a pleasant 59-year-old gentleman who follows regularly with Dr. Lozano in the office. He has a known history of coronary artery disease with prior acute anterior lateral myocardial infarction in December 2016 at which time the patient underwent successful stenting of the mid LAD with reduction in stenosis from 100% to 0%. Patient also has a history of hypertension, hyperlipidemia, nicotine dependence history, peripheral vascular disease, remote history of supraventricular tachycardia status post ablation. Patient presents to the emergency room on this occasion with symptoms of shortness of breath. He states he first noticed the symptoms when he stood up from getting out of bed. He states then that he proceeded to go to his vascular surgeons office to have a carotid duplex study performed, again had an upper another episode of shortness of breath. Patient states he went home and slept for a couple of hours and again had subsequent symptoms. Each time the patient gets the symptoms of shortness of breath he also gets a heavy pressure feeling in the upper epigastric and lower chest region that comes at the same time as the shortness of breath and dissipate when the shortness of breath subsides. The symptoms seemed to come with or without exertion. Blood pressure on arrival here 140/70 with a heart rate of 80, 98% on 2 L of oxygen. White blood cell count 14.5, hemoglobin 15.6, platelet count 229. D-dimer 0.4. Sodium 143, potassium 4.5, BUN 16, 0.7 creatinine. Initial troponin 0.055, BNP level 3240. Influenza A and B were negative. Chest x-ray shows mild increased opacification in the left lower lobe. EKG on presentation here shows a sinus tachycardia with a right bundle branch block, nonspecific ST-T wave changes. At the time of my examination, he currently does not have any symptoms of shortness of breath. No chest discomfort. Past Medical History Past Medical History: Coronary Artery Disease (CAD), COPD, Diabetes Mellitus, Hyperlipidemia, Hypertension, Myocardial Infarction (LA), Osteoarthritis (OA), Pneumonia, Supraventricular Tachycardia (SVT) Additional Past Medical History / Comment(s): Acute hypoxic respiratory failure, sepsis d/t GE or pneumonia, NIDDM type II, arthritis bilateral hands, umbilical hernia, SVT with successful ablation. Last Myocardial Infarction Date:: 12-23-16 History of Any Multi-Drug Resistant Organisms: None Reported Past Surgical History: Appendectomy, Cardiac Ablation, Heart Catheterization W ith Stent, Orthopedic Surgery Additional Past Surgical History / Comment(s): Cardiac ablation for SVT, R caratid endartectomy, bilateral carpal tunnel releases, colonoscopies/benign polyps. Past Anesthesia/Blood Transfusion Reactions: No Reported Reaction Additional Past Anesthesia/Blood Transfusion Reaction / Comment(s): Pt has clausterphobia. Date of Last Stent Placement:: 12-23-16 Smoking Status: Former smoker - Past Family History Father Brother(s) Family Medical History: Cancer Additional Family Medical History / Comment(s): Father from colon cancer at the age of 63 yrs. Brother had colon cancer with surgical removal. Mother Family Medical History: Coronary Artery Disease (CAD), Diabetes Mellitus, Myocardial Infarction (LA) Additional Family Medical History / Comment(s): Mother of a LA at the age of 79yrs. She had an AICD/pacer. Medications and Allergies Home Medications Medication Instructions Recorded Confirmed Type Aspirin 81 mg PO DAILY #30 chew 12/26/16 05/02/19 Rx Atorvastatin [Lipitor] 80 mg PO HS #30 tab 12/26/16 05/02/19 Rx Carvedilol [Coreg] 6.25 mg PO BID-W/MEALS #60 tab 12/26/16 05/02/19 Rx Nitroglycerin Sl Tabs [Nitrostat] 0.4 mg SUBLINGUAL Q5M PRN #25 tab 12/26/16 05/02/19 Rx Spironolactone [Aldactone] 25 mg PO DAILY #30 tab 12/26/16 05/02/19 Rx metFORMIN HCL [Glucophage] 500 mg PO BID 12/07/17 05/02/19 History Ibuprofen [Motrin Ib] 400 - 600 mg PO Q6H PRN 09/08/18 05/02/19 History Lisinopril [Zestril] 10 mg PO BID 09/08/18 05/02/19 History Allergies Allergy/AdvReac Type Severity Reaction Status Date / Time No Known Allergies Allergy Verified 05/02/19 09:15 Physical Exam Vitals: Vital Signs Temp Pulse Resp BP Pulse Ox 05/02/19 12:00 81 18 02/27/20 11:59 81 18 122/64 94 L 05/02/19 08:00 98.1 F 82 20 145/78 98 Intake and Output 05/01/19 05/02/19 05/02/19 22:59 06:59 14:59 Intake Total 758 Balance 758 Intake: Oral 758 Other: # Voids 2 Weight 125.4 kg PHYSICAL EXAMINATION: GENERAL: 59-year-old gentleman in no acute distress at the time of my examination HEENT: Head is atraumatic, normocephalic. Pupils equal, round. Sclera anicteric. Conjunctiva are clear. Mucous membranes of the mouth are moist. Neck is supple. There is no elevated jugular venous pressure. No carotid bruit is heard. HEART EXAMINATION: S1 S2 1 systolic ejection murmur is heard CHEST EXAMINATION: On circumflex clear with mild diminished. She to the bases ABDOMEN: Soft, obese, nontender. Bowel sounds are heard. No organomegaly noted. EXTREMITIES: 2+ peripheral pulses with no evidence of peripheral edema and no calf tenderness noted. NEUROLOGIC patient is awake, alert and oriented 3 . . Results 05/02/19 05:15 05/02/19 04:45 Cardiac Enzymes 05/02/19 05/02/19 Range/Units 04:45 04:45 AST 41 (17-59) U/L CK-MB (CK-2) 2.9 H (0.0-2.4) ng/mL Troponin I 0.055 H* (0.000-0.034) ng/mL Coagulation 05/02/19 Range/Units 04:45 PT 11.0 (9.0-12.0) sec APTT 23.7 (22.0-30.0) sec CBC 05/02/19 Range/Units 05:15 WBC 14.5 H (3.8-10.6) k/uL RBC 5.38 (4.30-5.90) m/uL Hgb 15.6 (13.0-17.5) gm/dL Hct 49.6 (39.0-53.0) % Plt Count 229 (150-450) k/uL Comprehensive Metabolic Panel 05/02/19 Range/Units 04:45 Sodium 143 (137-145) mmol/L Potassium 4.5 (3.5-5.1) mmol/L Chloride 103 (98-107) mmol/L Carbon Dioxide 34 H (22-30) mmol/L BUN 16 (9-20) mg/dL Creatinine 0.70 (0.66-1.25) mg/dL Glucose 159 H (74-99) mg/dL Calcium 9.4 (8.4-10.2) mg/dL AST 41 (17-59) U/L ALT 47 (4-49) U/L Alkaline Phosphatase 59 (38-126) U/L Total Protein 7.1 (6.3-8.2) g/dL Albumin 4.3 (3.5-5.0) g/dL Current Medications Generic Name Dose Route Start Last Admin Trade Name Freq PRN Reason Stop Dose Admin Aspirin 81 mg 05/02/19 09:00 05/02/19 08:52 Aspirin PO Not Given DAILY [facility] Atorvastatin Calcium 80 mg 05/02/19 21:00 Lipitor PO HS [facility] Carvedilol 6.25 mg 05/02/19 07:30 05/02/19 08:51 Coreg PO 6.25 mg BID-W/MEALS [facility] Administration Heparin Sodium (Porcine) 0 unit 05/02/19 12:06 Heparin IV PER PROTOCOL PRN Low PTT Protocol Heparin Sodium/Sodium Chloride 250 mls @ 9.994 mls/hr 05/02/19 12:15 25,000 unit/ Sodium Chloride IV .Q24H [facility] Protocol 7.97 UNITS/KG/HR Ibuprofen 600 mg 05/02/19 06:07 Motrin PO Q6H PRN Pain Lisinopril 10 mg 05/02/19 09:00 05/02/19 08:51 Zestril PO 10 mg BID [facility] Administration Nitroglycerin 0.4 mg 05/02/19 06:03 Nitrostat SUBLINGUAL Q5M PRN Chest Pain Sodium Chloride 10 ml 05/02/19 09:00 05/02/19 08:51 Saline Flush IV 10 ml BID [facility] Administration Spironolactone 25 mg 05/02/19 09:00 05/02/19 08:51 Aldactone PO 25 mg DAILY [facility] Administration Intake and Output 05/01/19 05/02/19 05/02/19 22:59 06:59 14:59 Intake Total 758 Balance 758 Intake: Oral 758 Other: # Voids 2 Weight 125.4 kg Patient Weight 05/03/19 06:59 Weight 125.4 kg 05/02/19 05:15 05/02/19 04:45 EKG Interpretations (text) EKG shows a sinus tachycardia with right bundle branch block pattern, nonspe cific ST-T wave changes Assessment and Plan Plan: Assessment and plan #1 symptoms of progressively worsening intermittent episodes of shortness of breath with associated chest discomfort, rule out possible acute coronary syndrome. Initial troponin 0.055. D-dimer negative. #2 known history of coronary artery disease with prior anterior wall LA with LAD stenting in 2017 #3 hypertension #4 hyperlipidemia #5 prior nicotine dependence #6 PVD Plan We will obtain an echocardiogram with Doppler study. Obtain 2 subsequent troponins. The patient's symptoms are suggestive of possible acute coronary syndrome, we would recommend the patient undergo cardiac catheterization tomorrow with Dr. Lozano. The risks and the benefits were explained to the patient in detail and he is willing to proceed. We will give the patient a one- time dose of IV Lasix, continue IV heparin, continue aspirin, Lipitor, Coreg, lisinopril, and Aldactone. Further recommendations to follow. DNP note has been reviewed, I agree with a documented findings and plan of care. Patient was seen and examined.
[2019-05-02 12:39] LABS: INR 1.1 (<1.2); Partial Thromboplastin Time 23.5 sec (22.0-30.0); Prothrombin Time 11.2 sec (9.0-12.0)
[2019-05-02] MEDS ORDERED: ALBUTEROL NEBULIZED 2.5 MG/3 ML INHALATION PRN (13:03)
--- NOTE | 2019-05-02 13:04 | P.HPIM ---
History of Present Illness This is a pleasant 59-year-old male came in with complaints of shortness of breath which has been going on for about a week much worse all day yesterday patient was shoveling snow. 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 Patient quit smoking patient is not in COPD exacerbation either patient denied any significant cough. Patient chest x-ray showed a significant acute ST-T wave changes although nonspecific and the troponin is mildly elevated patient will be started on IV heparin will repeat 2 more sets of troponins influenza is negative. A she and is coughing unable to bring up anything area denied any significant orthopnea proximal nocturnal dyspnea patient had sinus tachycardia on the EKG that was done on admission Review of Systems REVIEW OF SYSTEMS: CONSTITUTIONAL: No fever, no malaise, no fatigue. HEENT: No recent visual problems or hearing problems. Denied any sore throat. CARDIOVASCULAR: No orthopnea, PND, no palpitations, no syncope. PULMONARY: no hemoptysis. GASTROINTESTINAL: No diarrhea, no nausea, no vomiting, no abdominal pain. NEUROLOGICAL: No headaches, no weakness, no numbness. HEMATOLOGICAL: Denies any bleeding or petechiae. GENITOURINARY: Denies any burning micturition, frequency, or urgency. MUSCULOSKELETAL/RHEUMATOLOGICAL: Denies any joint pain, swelling, or any muscle pain. ENDOCRINE: Denies any polyuria or polydipsia. The rest of the 14-point review of systems is negative. Past Medical History Past Medical History: Coronary Artery Disease (CAD), COPD, Diabetes Mellitus, Hyperlipidemia, Hypertension, Myocardial Infarction (NC), Osteoarthritis (OA), Pneumonia, Supraventricular Tachycardia (SVT) Additional Past Medical History / Comment(s): Acute hypoxic respiratory failure, sepsis d/t GE or pneumonia, NIDDM type II, arthritis bilateral hands, umbilical hernia, SVT with successful ablation. Last Myocardial Infarction Date:: 12-23-16 History of Any Multi-Drug Resistant Organisms: None Reported Past Surgical History: Appendectomy, Cardiac Ablation, Heart Catheterization With Stent, Orthopedic Surgery Additional Past Surgical History / Comment(s): Cardiac ablation for SVT, R caratid endartectomy, bilateral carpal tunnel releases, colonoscopies/benign polyps. Past Anesthesia/Blood Transfusion Reactions: No Reported Reaction Additional Past Anesthesia/Blood Transfusion Reaction / Comment(s): Pt has clausterphobia. Date of Last Stent Placement:: 12-23-16 Smoking Status: Former smoker - Past Family History Father Brother(s) Family Medical History: Cancer Additional Family Medical History / Comment(s): Father from colon cancer at the age of 63 yrs. Brother had colon cancer with surgical removal. Mother Family Medical History: Coronary Artery Disease (CAD), Diabetes Mellitus, Myocardial Infarction (NC) Additional Family Medical History / Comment(s): Mother of a NC at the age of 79yrs. She had an AICD/pacer. Medications and Allergies Home Medications Medication Instructions Recorded Confirmed Type Aspirin 81 mg PO DAILY #30 chew 12/26/16 05/02/19 Rx Atorvastatin [Lipitor] 80 mg PO HS #30 tab 12/26/16 05/02/19 Rx Carvedilol [Coreg] 6.25 mg PO BID-W/MEALS #60 tab 12/26/16 05/02/19 Rx Nitroglycerin Sl Tabs [Nitrostat] 0.4 mg SUBLINGUAL Q5M PRN #25 tab 12/26/16 05/02/19 Rx Spironolactone [Aldactone] 25 mg PO DAILY #30 tab 12/26/16 05/02/19 Rx metFORMIN HCL [Glucophage] 500 mg PO BID 12/07/17 05/02/19 History Ibuprofen [Motrin Ib] 400 - 600 mg PO Q6H PRN 09/08/18 05/02/19 History Lisinopril [Zestril] 10 mg PO BID 09/08/18 05/02/19 History Allergies Allergy/AdvReac Type Severity Reaction Status Date / Time No Known Allergies Allergy Verified 05/02/19 09:15 Physical Exam Vitals: Vital Signs Temp Pulse Resp BP Pulse Ox 05/02/19 12:00 81 18 05/02/19 11:59 81 18 122/64 94 L 05/02/19 08:00 98.1 F 82 20 145/78 98 Intake and Output 05/01/19 05/02/19 05/02/19 22:59 06:59 14:59 Intake Total 758 Balance 758 Intake: Oral 758 Other: # Voids 2 Weight 125.4 kg PHYSICAL EXAMINATION: GENERAL: The patient is alert and oriented x3, not in any acute distress. Obese HEENT: Pupils are round and equally reacting to light. EOMI. No scleral icterus. No conjunctival pallor. Normocephalic, atraumatic. No pharyngeal erythema. No thyromegaly. CARDIOVASCULAR: S1 and S2 present. No murmurs, rubs, or gallops. PULMONARY: Mildly decreased air entry into bilateral lung smith no wheezing or crackles are appreciated ABDOMEN: Soft, nontender, nondistended, normoactive bowel sounds. No palpable organomegaly. MUSCULOSKELETAL: No joint swelling or deformity. EXTREMITIES: No cyanosis, clubbing, or pedal edema. NEUROLOGICAL: Gross neurological examination did not reveal any focal deficits. SKIN: No rashes. Results CBC & Chem 7: 05/02/19 12:12 05/02/19 04:45 Labs: Abnormal Lab Results - Last 24 Hours (Table) 05/02/19 05/02/19 05/02/19 Range/Units 04:45 04:45 05:15 WBC (3.8-10.6) k/uL Neutrophils # (1.3-7.7) k/uL Carbon Dioxide 34 H (22-30) mmol/L Glucose 159 H (74-99) mg/dL POC Glucose (mg/dL) (75-99) mg/dL Total Creatine Kinase 264 H (55-170) U/L CK-MB (CK-2) 2.9 H (0.0-2.4) ng/mL Troponin I 0.055 H* (0.000-0.034) ng/mL Urine Protein 1+ H (Negative) Urine Mucus Few H (None) /hpf 05/02/19 05/02/19 05/02/19 Range/Units 05:15 11:52 12:12 WBC 14.5 H 11.6 H (3.8-10.6) k/uL Neutrophils # 11.1 H (1.3-7.7) k/uL Carbon Dioxide (22-30) mmol/L Glucose (74-99) mg/dL POC Glucose (mg/dL) 115 H (75-99) mg/dL Total Creatine Kinase (55-170) U/L CK-MB (CK-2) (0.0-2.4) ng/mL Troponin I (0.000-0.034) ng/mL Urine Protein (Negative) Urine Mucus (None) /hpf Thrombosis Risk Factor Assmnt - Choose All That Apply Any of the Below Risk Factors Present?: Yes Each Factor Represents 1 point: Abnormal pulmonary function (COPD), Age 41-60 years, Heart failure (<1month), Obesity (BMI >25) Other Risk Factors: No Other congenital or acquired thrombophilia - If yes, enter type in comment: No Thrombosis Risk Factor Assessment Total Risk Factor Score: 4 Thrombosis Risk Factor Assessment Level: Moderate Risk Assessment and Plan Plan: -Shortness of breath progressive, acute myocardial infarction cannot be completely ruled out although etiology of his shortness of breath is not clear d-dimer is negative for set of troponin 0.05 5 repeat troponins will be obtained cardiology was consulted patient was started on heparin -Possibility of non-ST elevation myocardial infarction which cannot be ruled out at this time next and heparin coronary artery disease with previous stenting -Hypertension next and-hyperlipidemia -Possibly of sleep apnea with some mild bronchitis is contributing to his shortness of breath if not acute myocardial infarction during that -Hyperlipidemia -Peripheral vascular disease
--- NOTE | 2019-05-02 15:52 | ECHOF ---
Referral Reason:ACS MEASUREMENTS -------- HEIGHT: 172.7 cm WEIGHT: 127.0 kg BP: IVSd: 1.5 cm (0.6 - 1.1) LVIDd: 5.4 cm (3.9 - 5.3) LVPWd: 1.6 cm (0.6 - 1.1) IVSs: 1.8 cm LVIDs: 4.3 cm LVPWs: 1.9 cm LA Diam: 4.9 cm (2.7 - 3.8) RVIDd: 3.7 cm (< 3.3) Ao Diam: 3.6 cm (2.0 - 3.7) AV Cusp: 1.3 cm (1.5 - 2.6) EPSS: 1.1 cm MV E Farhan: 1.00 m/s MV DecT: 157 ms MV A Farhan: 0.77 m/s MV E/A Ratio: 1.30 AV maxP.34 mmHg AV meanP.38 mmHg RAP: 5.00 mmHg RVSP: 15.06 mmHg MV EF SLOPE: 60.80 mm/s (70 - 150) MV EXCURSION: 16.07 mm (> 18.000) FINDINGS -------- Sinus rhythm. Morbid Obesity This was a techncally difficult study with suboptimal views, , Definity utilized for enhancement of images. The left ventricular size is normal. There is mild concentric left ventricular hypertrophy. Overa ll left ventricular systolic function is moderate-severely impaired with, an EF between 30 - 35 %. Anterseptal Hypokinesis Cavendish Hypokinesis. The right ventricle is normal in size. The left atrium is moderately dilated. The right atrial size is normal. The aortic valve was not well visualized. There is moderate aortic stenosis present. Peak/mean gr adient across the Aortic Valve is 39.34mmHg / 26.38mmHg. Mild mitral annular calcification present. Mild mitral regurgitation is present. Mild tricuspid regurgitation present. Right ventricular systolic pressure is normal at < 35 mmHg. There is no evidence of pulmonary hypertension. The pulmonic valve was not well visualized. The aortic root size is normal. Echo free space indicative of a pericardial fat pad. CONCLUSIONS -------- 1. Sinus rhythm. 2. Morbid Obesity 3. This was a techncally difficult study with suboptimal views, , Definity utilized for enhancement o f images. 4. The left ventricular size is normal. 5. There is mild concentric left ventricular hypertrophy. 6. Overall left ventricular systolic function is moderate-severely impaired with, an EF between 30 - 35 %. 7. Anterseptal Hypokinesis 8. Cavendish Hypokinesis. 9. The right ventricle is normal in size. 10. The left atrium is moderately dilated. 11. The right atrial size is normal. 12. The aortic valve was not well visualized. 13. There is moderate aortic stenosis present. 14. Peak/mean gradient across the Aortic Valve is 39.34mmHg / 26.38mmHg. 15. Mild mitral annular calcification present. 16. Mild mitral regurgitation is present. 17. Mild tricuspid regurgitation present. 18. Right ventricular systolic pressure is normal at < 35 mmHg. 19. There is no evidence of pulmonary hypertension. 20. The pulmonic valve was not well visualized. 21. The aortic root size is normal. 22. Echo free space indicative of a pericardial fat pad. YOU[employer] C[employer] WORKER: Carolyn Galvan RDCS
[2019-05-02 16:32] LABS: Glucose,Whole Blood 109 mg/dL (75-99)
[2019-05-02] MEDS: INSULIN ASPART (NovoLOG) 100 UNIT/ML VIAL SQ SCH (20:05)
[2019-05-02 20:06] LABS: Glucose,Whole Blood 115 mg/dL (75-99)
[2019-05-02] MEDS: ATORVASTATIN 80 MG TAB PO SCH (20:08)
[2019-05-03 06:16] LABS: Basophils % (A) 0 %; Eosinophils # (A) 0.2 k/uL (0-0.7); Eosinophils % (A) 3 %; HCT 46.8 % (39.0-53.0); HGB 14.5 gm/dL (13.0-17.5); Lymphocytes # (A) 2.3 k/uL (1.0-4.8); Lymphocytes % (A) 29 %; MCH 28.8 pg (25.0-35.0); MCHC 30.9 g/dL (31.0-37.0); MCV 93.3 fL (80.0-100.0); Mean Platelet Volume 8.8; Monocytes # (A) 0.7 k/uL (0-1.0); Monocytes % (A) 9 %; Neutrophils # (A) 4.5 k/uL (1.3-7.7); Neutrophils % (A) 57 %; Platelet Count 167 k/uL (150-450); RBC 5.01 m/uL (4.30-5.90); RDW 12.8 % (11.5-15.5); WBC 7.8 k/uL (3.8-10.6)
[2019-05-03 06:32] LABS: Glucose,Whole Blood 140 mg/dL (75-99)
[2019-05-03] MEDS: INSULIN ASPART (NovoLOG) 100 UNIT/ML VIAL SQ SCH ×4 (06:32→21:34)
[2019-05-03] MEDS: CARVEDILOL 6.25 MG TAB PO SCH (06:38)
[2019-05-03] MEDS: ASPIRIN 81 MG PO SCH (07:55)
[2019-05-03] MEDS: LISINOPRIL 10 MG TAB PO SCH ×2 (07:55→21:34)
[2019-05-03] MEDS: SPIRONOLACTONE 25 MG TAB PO SCH (07:56)
--- NOTE | 2019-05-03 08:34 | P.PN ---
Subjective Progress Note Date: 05/03/19 Principal diagnosis: Acute non-ST elevation OH This is a pleasant 59-year-old gentleman was coronary artery disease and prior stenting of the LAD in the setting of acute anterior ST patient myocardial infarction in 2017 along with hypertension and dyslipidemia was admitted to the hospital with a chest discomfort and ruled in for acute non-ST patient myocardial infarction. He underwent also an echocardiogram which revealed cardiomyopathy was EF between 30-35% with mild aortic stenosis. He was seen today, May [id number]. He did have an episode of chest discomfort last night. I am going to contact Dr. Lozano to schedule the patient wondered ago coronary angiogram later on today. The procedure in details was discussed with the patient. The patient does have good right radial pulse. Objective - Vital Signs Vital signs: Vital Signs Temp 98.7 F 05/03/19 07:52 Pulse 82 05/03/19 07:52 Resp 17 05/03/19 07:52 BP 140/91 05/03/19 07:52 Pulse Ox 92 L 05/03/19 07:52 Intake & Output 05/02/19 05/03/19 05/03/19 18:59 06:59 18:59 Intake Total 1915 67.293 Balance 1915 67.293 Weight 125.4 kg 125.9 kg Intake: Intake, IV Titration 67.293 Amount Heparin Sod,Pork in 0.45% 67.293 NaCl 25,000 unit In 0.45 % NaCl 1 250ml.bag @ 7.97 UNITS/KG/HR 9.994 mls/hr IV .Q24H [facility] Rx#: [id number] Oral 1915 Other: Voiding Method Toilet # Voids 2 1 # Bowel Movements 1 - Constitutional General appearance: Present: no acute distress - Respiratory Respiratory: bilateral: CTA - Cardiovascular Rhythm: regular Heart sounds: normal: S1, S2 - Labs CBC & Chem 7: 05/03/19 05:14 05/02/19 04:45 Labs: Abnormal Lab Results - Last 24 Hours (Table) 05/02/19 05/02/19 05/02/19 Range/Units 11:52 12:12 12:12 WBC 11.6 H (3.8-10.6) k/uL MCHC (31.0-37.0) g/dL APTT (22.0-30.0) sec POC Glucose (mg/dL) 115 H (75-99) mg/dL Troponin I 0.050 H* (0.000-0.034) ng/mL 05/02/19 05/02/19 05/02/19 Range/Units 16:31 18:05 20:04 WBC (3.8-10.6) k/uL MCHC (31.0-37.0) g/dL APTT (22.0-30.0) sec POC Glucose (mg/dL) 109 H 115 H (75-99) mg/dL Troponin I 0.047 H* (0.000-0.034) ng/mL 05/03/19 05/03/19 05/03/19 Range/Units 05:14 05:25 06:30 WBC (3.8-10.6) k/uL MCHC 30.9 L (31.0-37.0) g/dL APTT 34.2 H (22.0-30.0) sec POC Glucose (mg/dL) 140 H (75-99) mg/dL Troponin I (0.000-0.034) ng/mL Assessment and Plan Assessment: Assessment #1 acute non-ST deviation myocardial infarction #2 known CAD and prior stenting of the LAD #3 cardiomyopathy with EF between 30-35% #4 multiple comorbid conditions Plan #1 continue the current medical regimen #2 the patient will be scheduled to undergo a heart catheterization later on today #3 maximize medical treatment for the cardiomyopathy #4 follow-up with the patient
[2019-05-03 11:33] LABS: Glucose,Whole Blood 117 mg/dL (75-99)
[2019-05-03] MEDS ORDERED: fentaNYL (PF) 50 MCG/ML 2 ML AMP IVP ONE (12:16)
[2019-05-03] MEDS ORDERED: LIDOCAINE 1% INJ 10MG/ML (20 ML MDV) SQ ONE (12:16)
[2019-05-03] MEDS ORDERED: VERAPAMIL SYRINGE (5 MG/10 ML) INTRAARTER ONE (12:18)
[2019-05-03] MEDS ORDERED: SODIUM CHLORIDE 0.9% 1,000 ML IV ONE (12:20)
[2019-05-03] MEDS ORDERED: HEPARIN SODIUM 1,000 UN/ML (10ML VL) IV ONE ×2 (12:30→12:40)
[2019-05-03] MEDS ORDERED: CLOPIDOGREL 75 MG TAB PO ONE (12:42)
[2019-05-03] MEDS ORDERED: IOPAMIDOL-370 125ML BTL INJ ONE (12:46)
[2019-05-03] MEDS ORDERED: IOPAMIDOL-370 100ML BTL INJ ONE (12:56)
[2019-05-03] MEDS ORDERED: RX INFO: IV CONTRAST WAS GIVEN 1 EACH MISC MISCELLANE PRN (13:11)
[2019-05-03] MEDS ORDERED: ZOLPIDEM 5 MG TAB PO PRN (13:11)
[2019-05-03] MEDS ORDERED: ATROPINE SULFATE 0.1 MG/ML 10ML SYRINGE IV PRN (13:11)
[2019-05-03] MEDS ORDERED: MAG HYDROX/AL HYDROX/SIMETH 30 ML CUP PO PRN (13:11)
[2019-05-03] MEDS ORDERED: NITROGLYCERIN SL TABS 0.4 MG TAB SUBLINGUAL PRN (13:11)
--- NOTE | 2019-05-03 13:14 | P.PN ---
Subjective Progress Note Date: 05/03/19 Principal diagnosis: This is a pleasant 59-year-old male came in with complaints of shortness of breath which has been going on for about a week much worse all day yesterday patient was shoveling [employer]. 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 Patient quit smoking patient is not in COPD exacerbation either patient denied any significant cough. Patient chest x-ray showed a significant acute ST-T wave changes although nonspecific and the troponin is mildly elevated patient will be started on IV heparin will repeat 2 more sets of troponins influenza is negative. A she and is coughing unable to b ring up anything area denied any significant orthopnea proximal nocturnal dyspnea patient had sinus tachycardia on the EKG that was done on admission 05/03/2019 Patient is seen in follow-up today and is currently nothing by mouth awaiting to undergo cardiac catheterization with Dr. Lozano today. Patient states he continues to have intermittent chest pain with most recent one this morning lasting about an hour. No reports of palpitations or worsening shortness of breath at this time. Patient is on room air. Has been afebrile. No reports of nausea or vomiting and patient was tolerating diet prior to nothing by mouth status. Patient remains on IV heparin. Objective - Vital Signs Vital signs: Vital Signs Temp 98.7 F 05/03/19 07:52 Pulse 82 05/03/19 07:52 Resp 17 05/03/19 07:52 BP 140/91 05/03/19 07:52 Pulse Ox 92 L 05/03/19 07:52 Intake & Output 05/02/19 05/03/19 05/03/19 18:59 06:59 18:59 Intake Total 1915 67.293 Balance 1915 67.293 Weight 125.4 kg 125.9 kg Intake: Intake, IV Titration 67.293 Amount Heparin Sod,Pork in 0.45% 67.293 NaCl 25,000 unit In 0.45 % NaCl 1 250ml.bag @ 7.97 UNITS/KG/HR 9.994 mls/hr IV .Q24H DELFINO Rx#: [id number] Oral 1915 Other: Voiding Method Toilet Toilet # Voids 2 1 # Bowel Movements 1 - Exam GENERAL: The patient is alert and oriented x3, not in any acute distress. Obese HEENT: Pupils are round and equally reacting to light. EOMI. No scleral icterus. No conjunctival pallor. Normocephalic, atraumatic. No pharyngeal erythema. No thyromegaly. CARDIOVASCULAR: S1 and S2 present. No murmurs, rubs, or gallops. PULMONARY: Mildly decreased air entry into bilateral lung smith no wheezing or crackles noted on exam ABDOMEN: Soft, obese, nontender, nondistended, normoactive bowel sounds. No palpable organomegaly. MUSCULOSKELETAL: No joint swelling or deformity. EXTREMITIES: No cyanosis, clubbing, or pedal edema. NEUROLOGICAL: Gross neurological examination did not reveal any focal deficits. SKIN: No rashes. - Labs CBC & Chem 7: 05/03/19 05:14 05/02/19 04:45 Labs: Abnormal Lab Results - Last 24 Hours (Table) 05/02/19 05/02/19 05/02/19 Range/Units 11:52 12:12 12:12 WBC 11.6 H (3.8-10.6) k/uL MCHC (31.0-37.0) g/dL APTT (22.0-30.0) sec POC Glucose (mg/dL) 115 H (75-99) mg/dL Troponin I 0.050 H* (0.000-0.034) ng/mL 05/02/19 05/02/19 05/02/19 Range/Units 16:31 18:05 20:04 WBC (3.8-10.6) k/uL MCHC (31.0-37.0) g/dL APTT (22.0-30.0) sec POC Glucose (mg/dL) 109 H 115 H (75-99) mg/dL Troponin I 0.047 H* (0.000-0.034) ng/mL 05/03/19 05/03/19 05/03/19 Range/Units 05:14 05:25 06:30 WBC (3.8-10.6) k/uL MCHC 30.9 L (31.0-37.0) g/dL APTT 34.2 H (22.0-30.0) sec POC Glucose (mg/dL) 140 H (75-99) mg/dL Troponin I (0.000-0.034) ng/mL Assessment and Plan Assessment: -Shortness of breath progressive, acute myocardial infarction cannot be completely ruled out although etiology of his shortness of breath is not clear d-dimer is negative for set of troponin 0.050. Repeat troponin trending down. Cardiology is following and planning for cardiac catheterization today. Patient remains on IV heparin. -Possibility of non-ST elevation myocardial infarction which cannot be ruled out at this time -coronary artery disease with previous stenting -Hypertension -hyperlipidemia -Possibility of sleep apnea with some mild bronchitis is contributing to his shortness of breath if not acute myocardial infarction may be the cause -Peripheral vascular disease Plan: Patient undergo cardiac catheterization today. Patient underwent echo showing left ventricular systolic function is moderately to severely impaired with an EF between 30 and 35% with mild mitral and tricuspid regurgitation present, and no evidence of pulmonary hypertension. Patient is currently nothing by mouth for the procedure. Will continue to monitor closely. Patient remains on IV heparin and will continue at this time. Cardiology following. Further recommendations to follow.
[2019-05-03] MEDS ORDERED: SODIUM CHLORIDE 0.9% 1,000 ML IV SCH (13:15)
[2019-05-03] MEDS: HEPARIN SOD,PORK IN 0.45% NACL 25,000 UNIT in 0.45% NACL 1 250ML.BAG IV SCH (14:57)
[2019-05-03 16:38] LABS: Glucose,Whole Blood 122 mg/dL (75-99)
[2019-05-03] MEDS: CARVEDILOL 12.5 MG TAB PO SCH (17:12)
--- NOTE | 2019-05-03 17:15 | PTCA ---
PERCUTANEOUSTRANS CORORONARY ANGIOGRAPHY Mr. Lindo is a 59-year-old male with a known history of coronary artery disease who presented with symptoms of chest discomfort and mild troponin elevation consistent with gkl-[id number]-elevation myocardial infarction. He underwent cardiac catheterization and was found to have significant stenosis involving the mid LAD. In view of that, recommendation was made regarding angioplasty and stenting. The procedure, its risks and complications were discussed with the patient, who was in full understanding and agreement. PROCEDURE DESCRIPTION: Using a 6-Cambodian FR4 guiding catheter and after cannulating the ostium of the left anterior descending artery, a 0.014 balanced medium-weight J-wire was advanced across the lesion and positioned distally. Then a 2.5 x 18 mm Xience Chuyita stent was advanced, deployed and post-dilated at 16 atmospheres. The balloon was pulled back proximally and one inflation at 16 atmospheres was done. After the last inflation, after appropriate wait, the balloon and the guidewire were withdrawn back into the guiding catheter. Images were obtained and repeated. Those images revealed stable successful stenting. At that point, the guiding catheter, the balloon and the guidewire were removed. The left ventricular end-diastolic pressure was calculated. Following that, catheter and sheath were removed. Hemostasis was obtained with deployment of a TR band. There was no immediate complication. Patient was returned to his room in stable condition. Of note, the patient received 10,000 units of intravenous heparin. He had chest discomfort and EKG changes with the inflation that resolved at the end of the procedure. RESULT: Successful stenting of the mid left anterior descending artery with reduction of stenosis from 80% to 0%. RECOMMENDATIONS: Patient will be continued on aspirin, Plavix, beta dick, ASHELY inhibitor, statin. The importance of dual antiplatelet treatment was discussed with the patient and his family, who are in full understanding and agreement. Duration of procedure was 43 minutes. MMODL / IJN: [id number] /
--- NOTE | 2019-05-03 18:36 | CC ---
CARDIAC CATHETERIZATION REPORT Mr. Lindo is a 59-year-old male with a known history of coronary artery disease, status post stenting of the LAD in 2017 in the setting of myocardial infarction, status post carotid endarterectomy. He presented with symptoms of progressive dyspnea, chest discomfort and mild troponin elevation. In view of that, recommendation was made regarding cardiac catheterization. The procedure as well as its risks and complications were discussed with the patient, who was in full understanding and agreement. PROCEDURE DESCRIPTION: Patient was brought to the medical laboratory assistant in a fasting, semi-sedated state after receiving fentanyl and Benadryl and achieving a moderate conscious sedated state. Using Xylocaine anesthesia and Seldinger technique, a 6-American sheath was introduced in the right radial artery. Selective right and left coronary angiography was performed using 5-American 3.5 bend and a 5-American 4 bend left Belen. Multiple views were taken of the coronary arteries, including hemiaxial views. Following that, angioplasty including stenting was performed. Following that, a 5-American tight pigtail catheter was introduced in the left ventricle and pressures were calculated. Following that, catheter and sheaths were removed. Hemostasis was obtained with deployment of a TR band. There was no immediate complication. Patient was returned to his room in stable condition. Of note, patient received intra-arterial verapamil. FINDINGS: LEFT MAIN: This is an almost nonexisting vessel that bifurcates right away into LAD and left circumflex. Left main has no obstructive disease. LEFT ANTERIOR DESCENDING ARTERY: This is a calcified vessel, large in caliber, reaching to the apex with a wrap around the apex segment. The proximal segment of the LAD has a 20% stenosis. The mid segment that is stented is patent. Distal to the stent there is an 80% stenosis with a plaque distal to it. Beyond that, the vessel has no evidence of high-grade stenosis. LEFT CIRCUMFLEX: This is a dominant large-sized vessel giving rise to a large obtuse marginal branch proximally that has mild intimal disease. Distally it bifurcates into PDA and a PLV. The bifurcation has a diffuse intimal disease of about 60% to 70%. RIGHT CORONARY ARTERY: This is a small nondominant vessel that has a 70% to 80% stenosis proximally. LEFT VENTRICULOGRAM: Left ventriculogram was not performed. HEMODYNAMICS: There was 20 to 30 mm gradient across the aortic valve. CONCLUSION: 1. Significant stenosis in the mid LAD distal to the stented segment. 2. Significant disease in the distal left circumflex with no progression compared to 2017. 3. Significant disease in a small proximal right coronary artery with no progression compared to 2017. 4. Evidence of aortic stenosis with a peak gradient of 25 to 30 mmHg that was noted in the past. RECOMMENDATIONS: In view of findings and anatomy, I have recommended proceeding with angioplasty and stenting of the LAD. The procedure as well as its risks and complications were discussed with the patient, who is in full understanding and agreement. MMODL / IJN: [id number] /
[2019-05-03 20:16] LABS: Glucose,Whole Blood 137 mg/dL (75-99)
[2019-05-03] MEDS: ATORVASTATIN 80 MG TAB PO SCH (21:34)
[2019-05-04 00:53] VITALS: RESP 18
[2019-05-04 06:18] LABS: Glucose,Whole Blood 123 mg/dL (75-99)
[2019-05-04 06:38] LABS: African American GFR (CKD) >90 (>60 ml/min/1.73 sqM); Anion Gap 6 mmol/L; Blood Urea Nitrogen 14 mg/dL (9-20); Carbon Dioxide 35 mmol/L (22-30); Chloride 99 mmol/L (98-107); Glucose 132 mg/dL (74-99); Non-African American GFR(CKD) >90 (>60 ml/min/1.73 sqM); Potassium 4.8 mmol/L (3.5-5.1); Sodium 140 mmol/L (137-145)
[2019-05-04] MEDS: INSULIN ASPART (NovoLOG) 100 UNIT/ML VIAL SQ SCH ×4 (06:57→20:07)
[2019-05-04] MEDS: CARVEDILOL 12.5 MG TAB PO SCH ×2 (06:59→17:11)
[2019-05-04] MEDS: LISINOPRIL 10 MG TAB PO SCH ×2 (08:10→20:04)
[2019-05-04] MEDS: ASPIRIN 81 MG PO SCH (08:10)
[2019-05-04] MEDS: SPIRONOLACTONE 25 MG TAB PO SCH (08:10)
[2019-05-04] MEDS: FUROSEMIDE 20 MG TAB PO SCH (08:10)
--- NOTE | 2019-05-04 09:47 | P.DS ---
Providers Date of admission: 05/02/19 06:46 Attending physician: Leslee Meredith Consults: 05/02/19 06:00 Consult Physician Routine Consulting Provider: Shayna Perea Consult Reason/Comments: CHF exacerbation Do you want consulting provider notified?: Yes 05/03/19 13:11 Consult Physician Routine Consulting Provider: [facility] Consult Reason/Comments: Post Interventional patient Do you want consulting provider notified?: Already Contacted Primary care physician: [facility] Hospital Course: 59-year-old male came in with complaints of shortness of breath which has been going on for about a week much worse 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 Patient quit smoking patient is not in COPD exacerbation either patient denied any significant cough. Patient chest x-ray showed a significant acute ST-T wave changes although nonspecific and the troponin is mildly elevated patient will be started on IV heparin will repeat 2 more sets of troponins influenza is negative. A she and is coughing unable to bring up anything area denied any significant orthopnea proximal nocturnal dyspnea patient had sinus tachycardia on the EKG that was done on admission 05/03/2019 Patient is seen in follow-up today and is currently nothing by mouth awaiting to undergo cardiac catheterization with Dr. Lozano today. Patient states he continues to have intermittent chest pain with most recent one this morning lasting about an hour. No reports of palpitations or worsening shortness of breath at this time. Patient is on room air. Has been afebrile. No reports of nausea or vomiting and patient was tolerating diet prior to nothing by mouth status. Patient remains on IV heparin. 05/04/2019 Patient is presently euvolemic underwent cardiac catheterization and stenting of LAD patient does have significant disease in distal circumflex as well as right coronary artery. Patient the has an EF of 30-35% probably acute systolic dysfunction without any acute exacerbation. Patient discharged today. Shortness of breath resolved - Exam GENERAL: The patient is alert and oriented x3, not in any acute distress. Obese HEENT: Pupils are round and equally reacting to light. EOMI. No scleral icterus. No conjunctival pallor. Normocephalic, atraumatic. No pharyngeal erythema. No thyromegaly. CARDIOVASCULAR: S1 and S2 present. No murmurs, rubs, or gallops. PULMONARY: Mildly decreased air entry into bilateral lung smith no wheezing or crackles noted on exam ABDOMEN: Soft, obese, nontender, nondistended, normoactive bowel sounds. No palpable organomegaly. MUSCULOSKELETAL: No joint swelling or deformity. EXTREMITIES: No cyanosis, clubbing, or pedal edema. NEUROLOGICAL: Gross neurological examination did not reveal any focal deficits. SKIN: No rashes. Assessment and Plan Assessment: -Shortness of breath progressive, secondary to acute non-ST elevation myocardial infarction, LAD stenting as mentioned above -Congestive heart failure acute systolic dysfunction from acute microinfarction, euvolemic at this time -coronary artery disease with previous stenting -Hypertension -hyperlipidemia -Possibility of sleep apnea patient will benefit from an outpatient sleep study -Peripheral vascular disease Plan - Discharge Summary Discharge Rx Participant: No New Discharge Prescriptions: New Carvedilol [Coreg*] 12.5 mg PO BID-W/MEALS #60 tab Furosemide [Lasix] 20 mg PO DAILY #30 tab Clopidogrel [Plavix] 75 mg PO DAILY #30 tab Continue Aspirin 81 mg PO DAILY #30 chew Atorvastatin [Lipitor] 80 mg PO HS #30 tab Nitroglycerin Sl Tabs [Nitrostat] 0.4 mg SUBLINGUAL Q5M PRN #25 tab PRN Reason: Chest Pain Spironolactone [Aldactone] 25 mg PO DAILY #30 tab metFORMIN HCL [Glucophage] 500 mg PO BID Lisinopril [Zestril] 10 mg PO BID Ibuprofen [Motrin Ib] 400 - 600 mg PO Q6H PRN PRN Reason: Pain Discontinued Carvedilol [Coreg] 6.25 mg PO BID-W/MEALS #60 tab Discharge Medication List Aspirin 81 mg PO DAILY #30 chew 12/26/16 [Rx] Atorvastatin [Lipitor] 80 mg PO HS #30 tab 12/26/16 [Rx] Nitroglycerin Sl Tabs [Nitrostat] 0.4 mg SUBLINGUAL Q5M PRN #25 tab 12/26/16 [Rx] Spironolactone [Aldactone] 25 mg PO DAILY #30 tab 12/26/16 [Rx] metFORMIN HCL [Glucophage] 500 mg PO BID 12/07/17 [History] Ibuprofen [Motrin Ib] 400 - 600 mg PO Q6H PRN 09/08/18 [History] Lisinopril [Zestril] 10 mg PO BID 09/08/18 [History] Carvedilol [Coreg*] 12.5 mg PO BID-W/MEALS #60 tab 05/04/19 [Rx] Clopidogrel [Plavix] 75 mg PO DAILY #30 tab 05/04/19 [Rx] Furosemide [Lasix] 20 mg PO DAILY #30 tab 05/04/19 [Rx] Follow up Appointment(s)/Referral(s): Flaco Lozano MD [STAFF PHYSICIAN] - 05/14/19 3:45 pm (With Spring MARCANO.) Deidre Maddox MD [Primary Care Provider] - 3 Days (Office closed, please call for a follow up appointment within one week of being discharged. ) Patient Instructions/Handouts: *[facility] - After Heart Catheterization - Respooler Instructions, Heart Healthy Diet (DC) Activity/Diet/Wound Care/Special Instructions: CARDIAC CATH 1. Support your puncture site by applying firm, steady pressure whenever you cough, laugh, sneeze or bear down to have a bowel movement (2-day restriction). 2. Watch for any excessive bruising, active bleeding, a firm knot forming under your skin, extreme tenderness and signs of infection (redness, swelling, fever). 3. Shower daily, do not soak puncture in a tub bath, jacuzzi, pool, mackenzie etc. for 1 week. This is to prevent risk of infection. 4. Drink plenty of fluids the day of and day after your procedure to flush contrast dye out of your kidneys. 5. Take all medications as directed. Never stop any new medication without your physicians OK. 6. No driving for 2 days after procedure. 7. 10- pound weight lifting restriction for 1 week. 8. Low sodium/low fat diet. 9. Activity limited until follow up appointment with your pharmacy intake coordinator. In case of any problems, please call [facility] [place] @ [phone].
[2019-05-04] MEDS: CLOPIDOGREL 75 MG TAB PO SCH (11:28)
[2019-05-04 11:44] LABS: Glucose,Whole Blood 110 mg/dL (75-99)
--- NOTE | 2019-05-04 12:32 | P.PN ---
Subjective This is Luz Maria Gomez PA-C dictating a progress note on this patient The patient was interviewed and examined by me as well as by Dr. Souza Case discussed with Dr. Souza and he agrees with the plan of care HPI/interval history Patient is a 59-year-old male with a past medical history of CAD status post stenting to the LAD, hypertension, dyslipidemia who presented with chest discomfort and was diagnosed with an acute non-ST elevation DE. Yesterday he underwent heart catheterization and stenting to the mid LAD. Patient seen and examined sitting up in the chair. He has been up walking around and has not had any chest pressure or shortness of breath with this. No dizziness. EXAMINATION Patient is afebrile, pulse in the 70s, respirations 18, blood pressure 130/83, oxygen saturation 94% on room air Patient seen and examined resting comfortably in his chair, in no acute distress Lungs are clear to auscultation bilaterally Heart is regular, systolic murmur audible Right radial pulse palpable No elevated JVD No lower extremity edema REVIEW OF LABS, ECG Sodium 140, potassium 4.8, BUN 14, creatinine 0.71 Telemetry reveals sinus rhythm Recent echocardiogram shows EF 30-35%, moderate aortic stenosis IMPRESSION / ASSESSMENT: Acute non-ST elevation DE status post stenting to the LAD Known CAD and prior stenting to the LAD Cardiomyopathy with EF 30-35% Hypertension Dyslipidemia PLAN: Continue dual antiplatelet therapy, statins, Coreg, lisinopril, and spironolactone We will continue to monitor patient for one more day and if he remains symptom- free and is doing well tomorrow he may be discharged tomorrow Objective - Vital Signs Vital signs: Vital Signs Temp 97.2 F L 05/04/19 11:24 Pulse 77 05/04/19 11:24 Resp 18 05/04/19 11:24 BP 130/83 05/04/19 11:24 Pulse Ox 94 L 05/04/19 11:24 Intake & Output 05/03/19 05/04/19 05/04/19 18:59 06:59 18:59 Intake Total 1000 180 Balance 1000 180 Weight 125.2 kg Intake: IV 100 Oral 900 180 Other: Voiding Method Toilet Toilet Toilet # Voids 2 1 # Bowel Movements 1 - Labs CBC & Chem 7: 05/03/19 05:14 05/04/19 05:31 Labs: Abnormal Lab Results - Last 24 Hours (Table) 05/03/19 05/03/19 05/04/19 Range/Units 16:36 20:14 05:31 Carbon Dioxide 35 H (22-30) mmol/L Glucose 132 H (74-99) mg/dL POC Glucose (mg/dL) 122 H 137 H (75-99) mg/dL 05/04/19 05/04/19 Range/Units 06:16 11:30 Carbon Dioxide (22-30) mmol/L Glucose (74-99) mg/dL POC Glucose (mg/dL) 123 H 110 H (75-99) mg/dL
[2019-05-04 16:59] LABS: Glucose,Whole Blood 116 mg/dL (75-99)
[2019-05-04] MEDS: ATORVASTATIN 80 MG TAB PO SCH (20:04)
[2019-05-04 20:05] LABS: Glucose,Whole Blood 141 mg/dL (75-99)
[2019-05-05 04:29] VITALS: PULSE 89
[2019-05-05 06:22] LABS: Glucose,Whole Blood 133 mg/dL (75-99)
[2019-05-05] MEDS: CARVEDILOL 12.5 MG TAB PO SCH (06:57)
[2019-05-05] MEDS: INSULIN ASPART (NovoLOG) 100 UNIT/ML VIAL SQ SCH (06:57)
[2019-05-05 07:50] VITALS: BP 109/55; TEMP 98
[2019-05-05] MEDS: LISINOPRIL 10 MG TAB PO SCH (07:51)
[2019-05-05] MEDS: CLOPIDOGREL 75 MG TAB PO SCH (07:51)
[2019-05-05] MEDS: FUROSEMIDE 20 MG TAB PO SCH (07:51)
[2019-05-05] MEDS: SPIRONOLACTONE 25 MG TAB PO SCH (07:51)
[2019-05-05] MEDS: ASPIRIN 81 MG PO SCH (07:51)
--- NOTE | 2019-05-05 11:47 | P.DS ---
Providers Date of admission: 05/02/19 06:46 Attending physician: Leslee Meredith Consults: 05/02/19 06:00 Consult Physician Routine Consulting Provider: Shayna Perea Consult Reason/Comments: CHF exacerbation Do you want consulting provider notified?: Yes 05/03/19 13:11 Consult Physician Routine Consulting Provider: [facility] Consult Reason/Comments: Post Interventional patient Do you want consulting provider notified?: Already Contacted Primary care physician: Deidre [facility] Hospital Course: patient was seen and examined today no changes in his medications no change in his clinical condition patient will be discharged today. Patient was seen and evaluated as unit of staying in the hospital PHYSICAL EXAMINATION: GENERAL: The patient is alert and oriented x3, not in any acute distress. Well developed, well nourished. HEENT: Pupils are round and equally reacting to light. EOMI. No scleral icterus. No conjunctival pallor. Normocephalic, atraumatic. No pharyngeal erythema. No thyromegaly. CARDIOVASCULAR: S1 and S2 present. No murmurs, rubs, or gallops. PULMONARY: Chest is clear to auscultation, no wheezing or crackles. ABDOMEN: Soft, nontender, nondistended, normoactive bowel sounds. No palpable organomegaly. MUSCULOSKELETAL: No joint swelling or deformity. EXTREMITIES: No cyanosis, clubbing, or pedal edema. NEUROLOGICAL: Gross neurological examination did not reveal any focal deficits. SKIN: No rashes. Please refer to my discharge summary from yesterday for further details Plan - Discharge Summary Discharge Rx Participant: No New Discharge Prescriptions: New Carvedilol [Coreg*] 12.5 mg PO BID-W/MEALS #60 tab Furosemide [Lasix] 20 mg PO DAILY #30 tab Clopidogrel [Plavix] 75 mg PO DAILY #30 tab Continue Aspirin 81 mg PO DAILY #30 chew Atorvastatin [Lipitor] 80 mg PO HS #30 tab Nitroglycerin Sl Tabs [Nitrostat] 0.4 mg SUBLINGUAL Q5M PRN #25 tab PRN Reason: Chest Pain Spironolactone [Aldactone] 25 mg PO DAILY #30 tab metFORMIN HCL [Glucophage] 500 mg PO BID Lisinopril [Zestril] 10 mg PO BID Ibuprofen [Motrin Ib] 400 - 600 mg PO Q6H PRN PRN Reason: Pain Discontinued Carvedilol [Coreg] 6.25 mg PO BID-W/MEALS #60 tab Discharge Medication List Aspirin 81 mg PO DAILY #30 chew 12/26/16 [Rx] Atorvastatin [Lipitor] 80 mg PO HS #30 tab 12/26/16 [Rx] Nitroglycerin Sl Tabs [Nitrostat] 0.4 mg SUBLINGUAL Q5M PRN #25 tab 12/26/16 [Rx] Spironolactone [Aldactone] 25 mg PO DAILY #30 tab 12/26/16 [Rx] metFORMIN HCL [Glucophage] 500 mg PO BID 12/07/17 [History] Ibuprofen [Motrin Ib] 400 - 600 mg PO Q6H PRN 09/08/18 [History] Lisinopril [Zestril] 10 mg PO BID 09/08/18 [History] Carvedilol [Coreg*] 12.5 mg PO BID-W/MEALS #60 tab 05/04/19 [Rx] Clopidogrel [Plavix] 75 mg PO DAILY #30 tab 05/04/19 [Rx] Furosemide [Lasix] 20 mg PO DAILY #30 tab 05/04/19 [Rx] Follow up Appointment(s)/Referral(s): Flaco Lozano MD [STAFF PHYSICIAN] - 05/14/19 3:45 pm (With Spring HERNANDEZ) Deidre Maddox MD [Primary Care Provider] - 3 Days (Office closed, please call for a follow up appointment within one week of being discharged. ) Patient Instructions/Handouts: *[facility] - After Heart Catheterization - [employer]ard[employer] Scientist Instructions, Heart Healthy Diet (DC) Activity/Diet/Wound Care/Special Instructions: CARDIAC CATH 1. Support your puncture site by applying firm, steady pressure whenever you cough, laugh, sneeze or bear down to have a bowel movement (2-day restriction). 2. Watch for any excessive bruising, active bleeding, a firm knot forming under your skin, extreme tenderness and signs of infection (redness, swelling, fever). 3. Shower daily, do not soak puncture in a tub bath, jacuzzi, pool, mackenzie etc. for 1 week. This is to prevent risk of infection. 4. Drink plenty of fluids the day of and day after your procedure to flush contrast dye out of your kidneys. 5. Take all medications as directed. Never stop any new medication without your physicians OK. 6. No driving for 2 days after procedure. 7. 10- pound weight lifting restriction for 1 week. 8. Low sodium/low fat diet. 9. Activity limited until follow up appointment with your acetylene burner. In case of any problems, please call [facility] [place] @ [phone]. Discharge Disposition: HOME SELF-CARE
--- NOTE | 2019-05-05 12:28 | P.PN ---
Subjective This is Luz Maria Gomez PA-C dictating a progress note on this patient The patient was interviewed and examined by me as well as by Dr. Souza Case discussed with Dr. Souza and he agrees with the plan of care HPI/interval history Patient is a 59-year-old male with a past medical history of CAD status post stenting to the LAD, hypertension, dyslipidemia who presented with chest discomfort and was diagnosed with an acute non-ST elevation OK. He underwent heart catheterization and stenting to the mid LAD. Patient seen and examined sitting up in the chair. States he's been walking around in the hallways and has not had any further chest discomfort or shortness of breath. Feels he is ready to go home. No dizziness or syncope. EXAMINATION Patient is afebrile, pulse in the 80s, respirations 18, blood pressure 109/55, oxygen saturation 95% on room air Patient seen and examined sitting up in the chair, in no acute distress Breath sounds mildly diminished bilaterally Heart is regular, systolic murmur audible No lower extremity edema REVIEW OF LABS, ECG No new labs today Telemetry reveals sinus mechanism IMPRESSION / ASSESSMENT: Acute non-ST elevation OK status post stenting to the LAD Known CAD and prior stenting to the LAD Cardiomyopathy with EF 30-35% Hypertension, fairly well controlled Dyslipidemia PLAN: Patient is clear for discharge 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 Continue maximal tolerated medications for cardiomyopathy and CAD Continue dual antiplatelet therapy Continue Coreg, lisinopril, and spironolactone Objective - Vital Signs Vital signs: Vital Signs Temp 98.0 F 05/05/19 07:49 Pulse 89 05/05/19 08:00 Resp 18 05/05/19 08:00 BP 109/55 05/05/19 07:49 Pulse Ox 92 L 05/05/19 07:49 Intake & Output 05/04/19 05/05/19 05/05/19 18:59 06:59 18:59 Intake Total 830 420 Balance 830 420 Weight 125 kg Intake: Oral 830 420 Other: Voiding Method Toilet Toilet Toilet # Voids 2 1 # Bowel Movements 1 - Labs CBC & Chem 7: 05/03/19 05:14 05/04/19 05:31 Labs: Abnormal Lab Results - Last 24 Hours (Table) 02/29/20 02/29/20 03/01/20 Range/Units 16:58 20:04 06:21 POC Glucose (mg/dL) 116 H 141 H 133 H (75-99) mg/dL
== END 2019-05-05 12:36 | disposition home or self-care (01) | DRG 246 ==
LOC: EC 04:11 → 3SCARD 06:46 → EC 07:05
PROVIDERS: ADMIT Hospitalist; ATTEND Hospitalist
PROC: 027034Z Dilation of Coronary Artery, One Artery with Drug-eluting Intraluminal Device, Percutaneous Approach (ICD-10-PCS; principal; 2019-05-03 11:30)
PROC: B2111ZZ Fluoroscopy of Multiple Coronary Arteries using Low Osmolar Contrast (ICD-10-PCS; principal; 2019-05-03 11:30)
DX: I21.4 Non-ST elevation (NSTEMI) myocardial infarction (principal); I50.21 Acute systolic (congestive) heart failure; Z68.41 Body mass index [BMI] 40.0-44.9, adult; I42.9 Cardiomyopathy, unspecified; E11.51 Type 2 diabetes mellitus with diabetic peripheral angiopathy without gangrene; E66.9 Obesity, unspecified; I11.0 Hypertensive heart disease with heart failure; I45.10 Unspecified right bundle-branch block; J44.9 Chronic obstructive pulmonary disease, unspecified; I35.0 Nonrheumatic aortic (valve) stenosis; E78.5 Hyperlipidemia, unspecified; G47.30 Sleep apnea, unspecified; I25.10 Atherosclerotic heart disease of native coronary artery without angina pectoris; M19.041 Primary osteoarthritis, right hand; M19.042 Primary osteoarthritis, left hand; I25.2 Old myocardial infarction; Z79.82 Long term (current) use of aspirin; Z79.84 Long term (current) use of oral hypoglycemic drugs; Z79.899 Other long term (current) drug therapy; Z95.5 Presence of coronary angioplasty implant and graft; Z71.3 Dietary counseling and surveillance; Z87.891 Personal history of nicotine dependence; Z86.19 Personal history of other infectious and parasitic diseases; Z90.49 Acquired absence of other specified parts of digestive tract; Z86.79 Personal history of other diseases of the circulatory system; Z86.010 Personal history of colon polyps; Z87.01 Personal history of pneumonia (recurrent); Z98.890 Other specified postprocedural states; Z80.0 Family history of malignant neoplasm of digestive organs; Z83.3 Family history of diabetes mellitus; Z82.49 Family history of ischemic heart disease and other diseases of the circulatory system
CPT/HCPCS: 36415; 71046; 80048; 80053; 81001; 82272; 82550; 82553; 83605; 83735; 83880; 84484; 85025; 85347; 85379; 85610; 85730; 87502; 93306; 93458; 96365; 99285

== ENCOUNTER → 2019-07-08 | Outpatient (CLI) | payer BC ==
[2019-07-08 16:55] LABS: African American GFR (CKD) 107.2 (60.0-200.0); Albumin 4.6 g/dL (3.80-4.90); Albumin/Globulin Ratio 2.09 (1.60-3.17); BUN/Creat Ratio 16.67 Ratio (12.00-20.00); Calcium 9.6 mg/dL (8.7-10.3); Chol/HDL Ratio 3.75; Globulin 2.2 g/dL (1.6-3.3); LDL Cholesterol,Calculated 69.2 mg/dL (0.0-131.0); Non-African American GFR(CKD) 92.5 (60.0-200.0); Potassium 4.9 mmol/L (3.5-5.5); Total Bilirubin 0.9 mg/dL (0.2-1.2); Total Protein 6.8 g/dL (6.2-8.2); VLDL Calculation 29.8 mg/dL (5.00-40.00)
== END | disposition home or self-care (01) ==
LOC: LABWHC1 09:31
PROVIDERS: ATTEND Internal Medicine Interventional Cardiology
DX: E78.2 Mixed hyperlipidemia (principal)
CPT/HCPCS: 36415; 80053; 80061

== ENCOUNTER 2020-04-29 20:15 | Inpatient (IN) | payer BC ==
[2020-04-29] MEDS ORDERED: ACETAMINOPHEN TAB 325 MG TAB PO STA (20:32)
[2020-04-29] MEDS ORDERED: ALBUTEROL HFA INHALER INHALATION STA (20:32)
[2020-04-29] MEDS ORDERED: DEXAMETHASONE SOD PHOSPHATE 10 MG/ML 1 ML VIAL IV STA (21:02)
--- NOTE | 2020-04-29 21:02 | ED ---
General Adult HPI - General Chief complaint: Shortness of Breath Stated complaint: COVID+/SOB Time Seen by Provider: 04/29/20 20:22 Source: patient, RN notes reviewed Mode of arrival: ambulatory Limitations: no limitations - History of Present Illness Initial comments: 60-year-old male presents emergency Department with chief complaint of shortness of breath, cough congestion. Patient was seen at [facility] today was diagnosed with [place]. Patient had a pulse ox of 80% at that express. Patient sent here for further evaluation. Patient states symptoms started on Monday. Patient does have a history of COPD states he has not smoked in 11 years. Patient occasionally uses an inhaler. Patient denies any chest pain headache or dizziness. Patient states she has noticed some wheezing. Patient denies any significant leg swelling, leg pain Pain. Patient states she has slight abdominal pain denies any sniffing nausea vomiting diarrhea constipation. - Related Data Home Medications Medication Instructions Recorded Confirmed Ibuprofen [Motrin Ib] 400 - 600 mg PO Q6H PRN 09/08/18 04/29/20 lisinopriL [Zestril] 10 mg PO BID 09/08/18 04/29/20 Albuterol Inhaler [Ventolin Hfa 2 puff INHALATION RT-QID PRN 04/29/20 04/29/20 Inhaler] Atorvastatin [Lipitor] 80 mg PO DAILY 04/29/20 04/29/20 Fluticasone Nasal [place] [Flonase 1 spray EA NOSTRIL BID PRN 04/29/20 04/29/20 Nasal [place]] Multivitamins, Thera [Multivitamin 1 tab PO DAILY 04/29/20 04/29/20 (formulary)] hydroCHLOROthiazide [Hydrodiuril] 25 mg PO DAILY 04/29/20 04/29/20 Previous Rx's Medication Instructions Recorded Aspirin 81 mg PO DAILY #30 chew 12/26/16 Nitroglycerin Sl Tabs [Nitrostat] 0.4 mg SUBLINGUAL Q5M PRN #25 tab 12/26/16 Clopidogrel [Plavix] 75 mg PO DAILY #30 tab 05/04/19 Furosemide [Lasix] 20 mg PO DAILY #30 tab 05/04/19 carvediloL [Coreg*] 12.5 mg PO BID-W/MEALS #60 tab 05/04/19 Allergies Allergy/AdvReac Type Severity Reaction Status Date / Time No Known Allergies Allergy Verified 04/29/20 21:39 Review of Systems ROS Statement: Those systems with pertinent positive or pertinent negative responses have been documented in the HPI. ROS Other: All systems not noted in ROS Statement are negative. Past Medical History Past Medical History: Coronary Artery Disease (CAD), COPD, Diabetes Mellitus, Hyperlipidemia, Hypertension, Myocardial Infarction (LA), Osteoarthritis (OA), Pneumonia, Supraventricular Tachycardia (SVT) Additional Past Medical History / Comment(s): Acute hypoxic respiratory failure, sepsis d/t GE or pneumonia, NIDDM type II, arthritis bilateral hands, umbilical hernia, SVT with successful ablation. Last Myocardial Infarction Date:: 12-23-16 History of Any Multi-Drug Resistant Organisms: None Reported Past Surgical History: Appendectomy, Cardiac Ablation, Heart Catheterization With Stent, Orthopedic Surgery Additional Past Surgical History / Comment(s): Cardiac ablation for SVT, R caratid endartectomy, bilateral carpal tunnel releases, colonoscopies/benign polyps. Past Anesthesia/Blood Transfusion Reactions: No Reported Reaction Additional Past Anesthesia/Blood Transfusion Reaction / Comment(s): Pt has clausterphobia. Date of Last Stent Placement:: 12-23-16 Past Psychological History: No Psychological Hx Reported Smoking Status: Former smoker Past Alcohol Use History: None Reported Past Drug Use History: None Reported - Past Family History Father Brother(s) Family Medical History: Cancer Additional Family Medical History / Comment(s): Father from colon cancer at the age of 63 yrs. Brother had colon cancer with surgical removal. Mother Family Medical History: Coronary Artery Disease (CAD), Diabetes Mellitus, Myocardial Infarction (LA) Additional Family Medical History / Comment(s): Mother of a LA at the age of 79yrs. She had an AICD/pacer. General Exam Limitations: no limitations General appearance: alert, in no apparent distress Head exam: Present: atraumatic, normocephalic, normal inspection Eye exam: Present: normal appearance, PERRL, EOMI. Absent: scleral icterus, conjunctival injection, periorbital swelling ENT exam: Present: normal exam, normal oropharynx, mucous membranes moist, TM's normal bilaterally Neck exam: Present: normal inspection, full ROM. Absent: tenderness, meningismus, lymphadenopathy Respiratory exam: Present: wheezes, decreased breath sounds. Absent: normal lung sounds bilaterally, respiratory distress, rales, rhonchi, stridor Cardiovascular Exam: Present: normal rhythm, tachycardia, normal heart sounds. Absent: systolic murmur, diastolic murmur, rubs, gallop, clicks GI/Abdominal exam: Present: soft, normal bowel sounds. Absent: distended, tend erness, guarding, rebound, rigid Extremities exam: Absent: pedal edema Neurological exam: Present: alert, oriented X3, CN II-XII intact, reflexes norm al. Absent: motor sensory deficit Skin exam: Present: warm, dry, intact, normal color. Absent: rash Course Vital Signs 04/29/20 04/29/20 04/29/20 20:16 20:30 21:00 Temperature 100.0 F H Pulse Rate 113 H 92 Respiratory 20 22 22 Rate Blood Pressure 178/92 O2 Sat by Pulse 88 L 97 Oximetry 04/29/20 21:59 Temperature 98.7 F Pulse Rate 90 Respiratory 20 Rate Blood Pressure 161/83 O2 Sat by Pulse 97 Oximetry Medical Decision Making - Medical Decision Making Patient is covid Positive. X-ray shows bilateral infiltrates. Patient does feel improved after albuterol treatments, steroids though patient remains hypoxic at 86% on room air. Patiently admitted for pulmonary evaluation, oxygen, breathing treatments, steroids, vitamins. - Lab Data Result diagrams: 04/29/20 21:00 04/29/20 21:00 Lab Results 04/29/20 04/29/20 04/29/20 Range/Units 21:00 21:00 21:00 WBC 6.4 (3.8-10.6) k/uL RBC 4.89 (4.30-5.90) m/uL Hgb 14.4 (13.0-17.5) gm/dL Hct 44.4 (39.0-53.0) % MCV 90.8 (80.0-100.0) fL MCH 29.3 (25.0-35.0) pg MCHC 32.3 (31.0-37.0) g/dL RDW 12.9 (11.5-15.5) % Plt Count 152 (150-450) k/uL MPV 8.8 Neutrophils % 66 % Lymphocytes % 23 % Monocytes % 8 % Eosinophils % 2 % Basophils % 0 % Neutrophils # 4.2 (1.3-7.7) k/uL Lymphocytes # 1.5 (1.0-4.8) k/uL Monocytes # 0.5 (0-1.0) k/uL Eosinophils # 0.2 (0-0.7) k/uL Basophils # 0.0 (0-0.2) k/uL PT 11.3 (9.0-12.0) sec INR 1.1 (<1.2) APTT 20.7 L (22.0-30.0) sec D-Dimer 0.59 (<0.60) mg/L FEU Sodium 143 (137-145) mmol/L Potassium 4.1 (3.5-5.1) mmol/L Chloride 102 (98-107) mmol/L Carbon Dioxide 33 H (22-30) mmol/L Anion Gap 8 mmol/L BUN 17 (9-20) mg/dL Creatinine 0.70 (0.66-1.25) mg/dL Est GFR (CKD-EPI)AfAm >90 (>60 ml/min/1.73 sqM) Est GFR (CKD-EPI)NonAf >90 (>60 ml/min/1.73 sqM) Glucose 141 H (74-99) mg/dL Plasma Lactic Acid Zach (0.7-2.0) mmol/L Calcium 8.7 (8.4-10.2) mg/dL Magnesium 1.9 (1.6-2.3) mg/dL Total Bilirubin 0.9 (0.2-1.3) mg/dL AST 56 (17-59) U/L ALT 52 H (4-49) U/L Alkaline Phosphatase 51 (38-126) U/L Lactate Dehydrogenase 808 H (313-618) U/L C-Reactive Protein 12.5 H (<10.0) mg/L Total Protein 7.1 (6.3-8.2) g/dL Albumin 4.3 (3.5-5.0) g/dL 04/29/20 Range/Units 21:00 WBC (3.8-10.6) k/uL RBC (4.30-5.90) m/uL Hgb (13.0-17.5) gm/dL Hct (39.0-53.0) % MCV (80.0-100.0) fL MCH (25.0-35.0) pg MCHC (31.0-37.0) g/dL RDW (11.5-15.5) % Plt Count (150-450) k/uL MPV Neutrophils % % Lymphocytes % % Monocytes % % Eosinophils % % Basophils % % Neutrophils # (1.3-7.7) k/uL Lymphocytes # (1.0-4.8) k/uL Monocytes # (0-1.0) k/uL Eosinophils # (0-0.7) k/uL Basophils # (0-0.2) k/uL PT (9.0-12.0) sec INR (<1.2) APTT (22.0-30.0) sec D-Dimer (<0.60) mg/L FEU Sodium (137-145) mmol/L Potassium (3.5-5.1) mmol/L Chloride (98-107) mmol/L Carbon Dioxide (22-30) mmol/L Anion Gap mmol/L BUN (9-20) mg/dL Creatinine (0.66-1.25) mg/dL Est GFR (CKD-EPI)AfAm (>60 ml/min/1.73 sqM) Est GFR (CKD-EPI)NonAf (>60 ml/min/1.73 sqM) Glucose (74-99) mg/dL Plasma Lactic Acid Zach 0.9 (0.7-2.0) mmol/L Calcium (8.4-10.2) mg/dL Magnesium (1.6-2.3) mg/dL Total Bilirubin (0.2-1.3) mg/dL AST (17-59) U/L ALT (4-49) U/L Alkaline Phosphatase (38-126) U/L Lactate Dehydrogenase (313-618) U/L C-Reactive Protein (<10.0) mg/L Total Protein (6.3-8.2) g/dL Albumin (3.5-5.0) g/dL Disposition Clinical Impression: Pneumonia due to COVID-19 virus, Hypoxia Disposition: ADMITTED IP TO THIS [facility] Condition: Serious Referrals: Deidre Mdadox MD [Primary Care Provider] - 1-2 days
[2020-04-29 21:09] LABS: Basophils % (A) 0 %; Eosinophils # (A) 0.2 k/uL (0-0.7); Eosinophils % (A) 2 %; HCT 44.4 % (39.0-53.0); HGB 14.4 gm/dL (13.0-17.5); Lymphocytes # (A) 1.5 k/uL (1.0-4.8); Lymphocytes % (A) 23 %; MCH 29.3 pg (25.0-35.0); MCHC 32.3 g/dL (31.0-37.0); MCV 90.8 fL (80.0-100.0); Mean Platelet Volume 8.8; Monocytes # (A) 0.5 k/uL (0-1.0); Monocytes % (A) 8 %; Neutrophils # (A) 4.2 k/uL (1.3-7.7); Neutrophils % (A) 66 %; Platelet Count 152 k/uL (150-450); RBC 4.89 m/uL (4.30-5.90); RDW 12.9 % (11.5-15.5); WBC 6.4 k/uL (3.8-10.6)
[2020-04-29 21:18] LABS: ALT 52 U/L (4-49); AST 56 U/L (17-59); African American GFR (CKD) >90 (>60 ml/min/1.73 sqM); Albumin 4.3 g/dL (3.5-5.0); Alkaline Phosphatase 51 U/L (38-126); Anion Gap 8 mmol/L; Blood Urea Nitrogen 17 mg/dL (9-20); C Reactive Protein 12.5 mg/L (<10.0); Calcium 8.7 mg/dL (8.4-10.2); Carbon Dioxide 33 mmol/L (22-30); Chloride 102 mmol/L (98-107); Glucose 141 mg/dL (74-99); LDH 808 U/L (313-618); Magnesium 1.9 mg/dL (1.6-2.3); Non-African American GFR(CKD) >90 (>60 ml/min/1.73 sqM); Potassium 4.1 mmol/L (3.5-5.1); Sodium 143 mmol/L (137-145); Total Bilirubin 0.9 mg/dL (0.2-1.3); Total Protein 7.1 g/dL (6.3-8.2)
[2020-04-29 21:27] LABS: D-Dimer 0.59 mg/L FEU (<0.60); INR 1.1 (<1.2); Prothrombin Time 11.3 sec (9.0-12.0)
--- NOTE | 2020-04-29 21:32 | XR ---
EXAMINATION TYPE: XR chest 2V DATE OF EXAM: 04/29/2020 COMPARISON: 05/02/2019. HISTORY: Shortness of breath and cough. TECHNIQUE: Frontal and lateral views of the chest are obtained. FINDINGS: There is demonstration of mild to moderate bilateral perihilar and bibasilar opacity. No p leural effusion, or pneumothorax seen. The cardiac silhouette size is within normal limits. The os seous structures are intact. IMPRESSION: Redemonstrated mild to moderate perihilar and bibasilar opacities, may represent chronic change versus recurrent infiltrates.
[2020-04-29 21:50] LABS: Partial Thromboplastin Time 20.7 sec (22.0-30.0)
[2020-04-29] MEDS ORDERED: NALOXONE 0.4 MG/ML 1 ML VIAL IV PRN (22:23)
[2020-04-29] MEDS ORDERED: ONDANSETRON 4 MG/2 ML VIAL IVP PRN (22:23)
[2020-04-29] MEDS ORDERED: ACETAMINOPHEN TAB 325 MG TAB PO PRN (22:23)
[2020-04-29] MEDS: ASCORBIC ACID 500 MG TAB PO SCH (22:43)
[2020-04-29] MEDS: ZINC SULFATE 220 MG CAP PO SCH (22:43)
[2020-04-29] MEDS: CHOLECALCIFEROL 25 MCG (1000 IU) TABLET PO SCH (22:43)
[2020-04-30] MEDS ORDERED: NITROGLYCERIN SL TABS 0.4 MG TAB SUBLINGUAL PRN (06:12)
[2020-04-30] MEDS ORDERED: FLUTICASONE 50MCG/SPRAY NASAL 16GM EA NOSTRIL PRN (06:12)
[2020-04-30] MEDS: lisinopriL 10 MG TAB PO SCH ×2 (08:40→20:32)
[2020-04-30] MEDS: ASPIRIN 81 MG PO SCH (08:40)
[2020-04-30] MEDS: ZINC SULFATE 220 MG CAP PO SCH (08:40)
[2020-04-30] MEDS: ATORVASTATIN 80 MG TAB PO SCH (08:40)
[2020-04-30] MEDS: carvediloL 12.5 MG TAB PO SCH ×2 (08:40→16:58)
[2020-04-30] MEDS: CHOLECALCIFEROL 25 MCG (1000 IU) TABLET PO SCH (08:40)
[2020-04-30] MEDS: CLOPIDOGREL 75 MG TAB PO SCH (08:40)
[2020-04-30] MEDS: MULTIVITAMINS, THERA 1 EACH TAB PO SCH (08:40)
[2020-04-30] MEDS: ASCORBIC ACID 500 MG TAB PO SCH (08:40)
[2020-04-30] MEDS ORDERED: DEXAMETHASONE ORAL 4 MG/ML VIAL PO SCH (11:03)
[2020-04-30] MEDS ORDERED: REMDESIVIR 200 MG in SODIUM CHLORIDE 0.9% 250 ML IVPB ONE (12:00)
[2020-04-30 12:13] LABS: Ferritin 210.9 ng/mL (22.0-322.0)
--- NOTE | 2020-04-30 12:34 | P.HPIM ---
History of Present Illness 60-year-old male presents emergency Department with chief complaint of shortness of breath, cough congestion. Patient was seen at [facility] yesterday was diagnosed with Covid. Patient had a pulse ox of 80% at that express. Patient is presently on 2 L of oxygen saturating at 94% patient is feeling well and actually. Patient states symptoms started on Monday. Patient does have a history of COPD states he has not smoked in 11 years. Patient occasionally uses an inhaler. Patient denies any chest pain headache or dizziness. Patient states she has noticed some wheezing. Patient denies any significant leg swelling, leg pain Pain. Patient states she has slight abdominal pain denies any sniffing nausea vomiting diarrhea constipation. was started on Decadron and will be started on remdesivir. Patient doesn't have any sleep apnea but was supposed have a sleep study. Review of Systems REVIEW OF SYSTEMS: CONSTITUTIONAL: Mentioned in HPI HEENT: No recent visual problems or hearing problems. Denied any sore throat. CARDIOVASCULAR: No chest pain, orthopnea, PND, no palpitations, no syncope. PULMONARY: No shortness of breath, no cough, no hemoptysis. GASTROINTESTINAL: No diarrhea, no nausea, no vomiting, no abdominal pain. NEUROLOGICAL: No headaches, no weakness, no numbness. HEMATOLOGICAL: Denies any bleeding or petechiae. GENITOURINARY: Denies any burning micturition, frequency, or urgency. MUSCULOSKELETAL/RHEUMATOLOGICAL: Denies any joint pain, swelling, or any muscle pain. ENDOCRINE: Denies any polyuria or polydipsia. The rest of the 14-point review of systems is negative. Past Medical History Past Medical History: Coronary Artery Disease (CAD), COPD, Diabetes Mellitus, Hyperlipidemia, Hypertension, Myocardial Infarction (IA), Osteoarthritis (OA), Pneumonia, Supraventricular Tachycardia (SVT) Additional Past Medical History / Comment(s): Acute hypoxic respiratory failure, sepsis d/t GE or pneumonia, NIDDM type II but not on medication anymore, arthritis bilateral hands, umbilical hernia, SVT with successful ablation. Last Myocardial Infarction Date:: 12-23-16 History of Any Multi-Drug Resistant Organisms: None Reported Past Surgical History: Appendectomy, Cardiac Ablation, Heart Catheterization With Stent, Orthopedic Surgery Additional Past Surgical History / Comment(s): Cardiac ablation for SVT, R caratid endartectomy, bilateral carpal tunnel releases, colonoscopies/benign po lyps. Past Anesthesia/Blood Transfusion Reactions: No Reported Reaction Additional Past Anesthesia/Blood Transfusion Reaction / Comment(s): Pt has cla usterphobia. Date of Last Stent Placement:: 12-23-16 Past Psychological History: No Psychological Hx Reported Additional Psychological History / Comment(s): PT resides with his spouse. He works for the [employer]. He is independent. Smoking Status: Former smoker Past Alcohol Use History: None Reported Additional Past Alcohol Use History / Comment(s): PT started smoking in 1980 and quit in 2010. Past Drug Use History: None Reported - Past Family History Father Brother(s) Family Medical History: Cancer Additional Family Medical History / Comment(s): Father from colon cancer at the age of 63 yrs. Brother had colon cancer with surgical removal. Mother Family Medical History: Coronary Artery Disease (CAD), Diabetes Mellitus, Myocardial Infarction (IA) Additional Family Medical History / Comment(s): Mother of a IA at the age of 79yrs. She had an AICD/pacer. Medications and Allergies Home Medications Medication Instructions Recorded Confirmed Type Aspirin 81 mg PO DAILY #30 chew 12/26/16 04/29/20 Rx Nitroglycerin Sl Tabs [Nitrostat] 0.4 mg SUBLINGUAL Q5M PRN #25 tab 12/26/16 04/29/20 Rx Ibuprofen [Motrin Ib] 400 - 600 mg PO Q6H PRN 09/08/18 04/29/20 History lisinopriL [Zestril] 10 mg PO BID 09/08/18 04/29/20 History Clopidogrel [Plavix] 75 mg PO DAILY #30 tab 05/04/19 04/29/20 Rx Furosemide [Lasix] 20 mg PO DAILY #30 tab 05/04/19 04/29/20 Rx carvediloL [Coreg*] 12.5 mg PO BID-W/MEALS #60 tab 05/04/19 04/29/20 Rx Albuterol Inhaler [Ventolin Hfa 2 puff INHALATION RT-QID PRN 04/29/20 04/29/20 History Inhaler] Atorvastatin [Lipitor] 80 mg PO DAILY 04/29/20 04/29/20 History Fluticasone Nasal [place] [Flonase 1 spray EA NOSTRIL BID PRN 04/29/20 04/29/20 History Nasal [place]] Multivitamins, Thera [Multivitamin 1 tab PO DAILY 04/29/20 04/29/20 History (formulary)] hydroCHLOROthiazide [Hydrodiuril] 25 mg PO DAILY 04/29/20 04/29/20 History Allergies Allergy/AdvReac Type Severity Reaction Status Date / Time No Known Allergies Allergy Verified 04/29/20 21:39 Physical Exam Vitals: Vital Signs Temp Pulse Pulse Resp BP BP Pulse Ox 04/30/20 09:42 98 F 73 18 161/90 92 L 04/30/20 05:58 97.6 F 67 18 146/92 96 04/30/20 02:00 98.2 F 91 19 182/98 90 L 04/29/20 21:59 98.7 F 90 20 161/83 97 04/29/20 21:00 22 04/29/20 20:30 92 22 97 04/29/20 20:16 100.0 F H 113 H 20 178/92 88 L Intake and Output 04/29/20 04/30/20 04/30/20 22:59 06:59 14:59 Other: Voiding Method Toilet # Voids 1 Weight 126.099 kg 126.099 kg PHYSICAL EXAMINATION: GENERAL: The patient is alert and oriented x3, not in any acute distress. Well developed, well nourished. HEENT: Pupils are round and equally reacting to light. EOMI. No scleral icterus. No conjunctival pallor. Normocephalic, atraumatic. No pharyngeal erythema. No thyromegaly. CARDIOVASCULAR: S1 and S2 present. No murmurs, rubs, or gallops. PULMONARY: Chest is clear to auscultation, no wheezing or crackles. ABDOMEN: Soft, nontender, nondistended, normoactive bowel sounds. No palpable organomegaly. MUSCULOSKELETAL: No joint swelling or deformity. EXTREMITIES: No cyanosis, clubbing, or pedal edema. NEUROLOGICAL: Gross neurological examination did not reveal any focal deficits. SKIN: No rashes. Results CBC & Chem 7: 04/29/20 21:00 04/29/20 21:00 Labs: Abnormal Lab Results - Last 24 Hours (Table) 04/29/20 04/29/20 Range/Units 21:00 21:00 APTT 20.7 L (22.0-30.0) sec Carbon Dioxide 33 H (22-30) mmol/L Glucose 141 H (74-99) mg/dL ALT 52 H (4-49) U/L Lactate Dehydrogenase 808 H (313-618) U/L C-Reactive Protein 12.5 H (<10.0) mg/L Thrombosis Risk Factor Assmnt - Choose All That Apply Each Factor Represents 1 point: Obesity (BMI >25) Each Risk Factor Represents 2 Points: Age 61-74 years Thrombosis Risk Factor Assessment Total Risk Factor Score: 3 Thrombosis Risk Factor Assessment Level: Moderate Risk Assessment and Plan Plan: Covid 19 pneumonia: Continue with Decadron, Remdesivir, monitor him inflammatory markers. -Coronary artery disease extent-COPD without any acute exacerbation -Hyperlipidemia -Hypertension -History of SVT in the past -Osteoarthritis - DVT prophylaxis with the Lovenox GI prophylaxis with Pepcid
[2020-04-30] MEDS: dexAMETHasone 2 MG TAB PO SCH (13:09)
--- NOTE | 2020-04-30 14:05 | P.CNPUL ---
History of Present Illness Consult date: 04/30/20 Requesting physician: Leslee Meredith Reason for consult: dyspnea, cough, COPD, hypoxemia, pneumonia, abnormal CXR/CT Chief complaint: Shortness of breath. History of present illness: 60-year-old male, who presents to the emergency department, on 04/29/2020. The patient comes in with complaints of shortness of breath, cough, congestion, and nasal symptoms. He apparently was told recently, while at work, that he was sitting next to another employee, who apparently tested positive for coronavir us. Earlier this week, on Monday, he started having some upper respiratory tract symptoms including nasal congestion, and mild cough and mild shortness of breath. The symptoms progressed through the week, and on Monday, he went to [facility], and had a nasopharyngeal swab test for coronavirus. He tested positive, and was directed to the emergency room he was evaluated. The patient was told in the emergency department that he had COVID 19 pneumonia and because his symptoms have progressed, he was admitted to the hospital. He does tell me that he smoked for many years, and was diagnosed as having COPD, based on his smoking history, and a chest x-ray which in the past showed changes of COPD. 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 Currently, the patient is feeling a bit better. His complaints included chest congestion, cough, shortness of breath, tightness in his chest, wheezing, and occasional clear phlegm production. He was also having lots of upper respiratory tract symptoms including nasal congestion, stuffiness, and drainage. Currently, he is on 2 L nasal O2. Review of Systems Constitutional: Reports as per HPI Ears, nose, mouth and throat: Reports nasal congestion, Reports nasal discharge, Reports post-nasal drip, Reports sinus pain Respiratory: Reports congestion, Reports cough, Reports cough with sputum, Reports dyspnea Past Medical History Past Medical History: Coronary Artery Disease (CAD), COPD, Diabetes Mellitus, Hyperlipidemia, Hypertension, Myocardial Infarction ([place]), Osteoarthritis (OA), Pneumonia, Supraventricular Tachycardia (SVT) Additional Past Medical History / Comment(s): Acute hypoxic respiratory failure, sepsis d/t GE or pneumonia, NIDDM type II but not on medication anymore, arthritis bilateral hands, umbilical hernia, SVT with successful ablation. Last Myocardial Infarction Date:: 12-23-16 History of Any Multi-Drug Resistant Organisms: None Reported Past Surgical History: Appendectomy, Cardiac Ablation, Heart Catheterization With Stent, Orthopedic Surgery Additional Past Surgical History / Comment(s): Cardiac ablation for SVT, R caratid endartectomy, bilateral carpal tunnel releases, colonoscopies/benign polyps. Past Anesthesia/Blood Transfusion Reactions: No Reported Reaction Additional Past Anesthesia/Blood Transfusion Reaction / Comment(s): Pt has clausterphobia. Date of Last Stent Placement:: 12-23-16 Past Psychological History: No Psychological Hx Reported Additional Psychological History / Comment(s): PT resides with his spouse. He works for the [employer]. He is independent. Smoking Status: Former smoker Past Alcohol Use History: None Reported Additional Past Alcohol Use History / Comment(s): PT started smoking in 1980 and quit in 2010. Past Drug Use History: None Reported - Past Family History Father Brother(s) Family Medical History: Cancer Additional Family Medical History / Comment(s): Father from colon cancer at the age of 63 yrs. Brother had colon cancer with surgical removal. Mother Family Medical History: Coronary Artery Disease (CAD), Diabetes Mellitus, Myocardial Infarction ([place]) Additional Family Medical History / Comment(s): Mother of a [place] at the age of 79yrs. She had an AICD/pacer. Medications and Allergies Home Medications Medication Instructions Recorded Confirmed Type Aspirin 81 mg PO DAILY #30 chew 12/26/16 04/29/20 Rx Nitroglycerin Sl Tabs [Nitrostat] 0.4 mg SUBLINGUAL Q5M PRN #25 tab 12/26/16 04/29/20 Rx Ibuprofen [Motrin Ib] 400 - 600 mg PO Q6H PRN 09/08/18 04/29/20 History lisinopriL [Zestril] 10 mg PO BID 09/08/18 04/29/20 History Clopidogrel [Plavix] 75 mg PO DAILY #30 tab 05/04/19 04/29/20 Rx Furosemide [Lasix] 20 mg PO DAILY #30 tab 05/04/19 04/29/20 Rx carvediloL [Coreg*] 12.5 mg PO BID-W/MEALS #60 tab 05/04/19 04/29/20 Rx Albuterol Inhaler [Ventolin Hfa 2 puff INHALATION RT-QID PRN 04/29/20 04/29/20 History Inhaler] Atorvastatin [Lipitor] 80 mg PO DAILY 04/29/20 04/29/20 History Fluticasone Nasal [place] [Flonase 1 spray EA NOSTRIL BID PRN 04/29/20 04/29/20 History Nasal [place]] Multivitamins, Thera [Multivitamin 1 tab PO DAILY 04/29/20 04/29/20 History (formulary)] hydroCHLOROthiazide [Hydrodiuril] 25 mg PO DAILY 04/29/20 04/29/20 History Allergies Allergy/AdvReac Type Severity Reaction Status Date / Time No Known Allergies Allergy Verified 04/29/20 21:39 Physical Exam Osteopathic Statement: *. No significant issues noted on an osteopathic structural exam other than those noted in the History and Physical/Consult. Vitals: Vital Signs Temp Pulse Pulse Resp BP BP Pulse Ox 04/30/20 09:42 98 F 73 18 161/90 92 L 04/30/20 05:58 97.6 F 67 18 146/92 96 04/30/20 02:00 98.2 F 91 19 182/98 90 L 04/29/20 21:59 98.7 F 90 20 161/83 97 04/29/20 21:00 22 04/29/20 20:30 92 22 97 04/29/20 20:16 100.0 F H 113 H 20 178/92 88 L Intake and Output 04/29/20 04/30/20 04/30/20 22:59 06:59 14:59 Other: Voiding Method Toilet # Voids 1 Weight 126.099 kg 126.099 kg No acute distress, no conversational dyspnea, audible wheezing, or use of accessory muscles. The patient is currently on oxygen at 2 L. The patient is alert and oriented. HEENT examination is unremarkable. Mucous membranes are moist. Nasal O2 noted. Neck supple, full range of motion. No adenopathy or thyromegaly. Neck veins are flat. Cardiovascular examination reveals regular rhythm and rate. S1-S2 normal. No S3-S4 murmur. Heart sounds are distant. Heart rate 73 bpm. Lungs reveal scattered rhonchi. No wheezes. No crackles. Breath sounds equal bilaterally. No crackles. Abdomen obese. Bowel sounds are heard. No masses or tenderness. Extremities are intact. No cyanosis clubbing or edema. Skin without rash. Neurologic examination is nonfocal. Results - Laboratory Findings CBC and BMP: 04/29/20 21:00 04/29/20 21:00 PT/INR, D-dimer PT 11.3 sec (9.0-12.0) 04/29/20 21:00 INR 1.1 (<1.2) 04/29/20 21:00 D-Dimer 0.59 mg/L FEU (<0.60) 04/29/20 21:00 Abnormal lab findings: Abnormal Labs 04/29/20 04/29/20 21:00 21:00 APTT 20.7 L Carbon Dioxide 33 H Glucose 141 H ALT 52 H Lactate Dehydrogenase 808 H C-Reactive Protein 12.5 H - Diagnostic Findings Chest x-ray: image reviewed Assessment and Plan Assessment: Acute COVID 19 pneumonitis/pneumonia, with mild hypoxemia. History of CAD, with previous stent placement. Diabetes mellitus. Hyperlipidemia. History of hypertension. History of myocardial infarction. DJD. Prior history of pneumonia. History of SVT. Obesity. Status post ablation for SVT. Prior history of tobacco use, with possible underlying COPD. Prior right carotid endarterectomy. Plan: Plan dated 04/30/2020. The patient will be placed on vitamin C, vitamin D3, and zinc. In addition, the patient is given Decadron, and will start the patient on Remdesivir. We did consider convalescent plasma, but recently, the data on this approach is not real encouraging. In addition, will make sure he has an albuterol inhaler, and in addition supply him with oxygen therapy. We will check inflammatory markers on a regular basis. The patient will need follow-up chest x-rays. Additional recommendations and suggestions are forthcoming. We'll continue to see the patient on a daily basis and make recommendations were appropriate. Hopefully show signs of recovery and improvement, and will not need anything more aggressive than currently, what he is on. Time with Patient: Greater than 30
[2020-04-30] MEDS: ALBUTEROL HFA INHALER INHALATION PRN (20:11)
[2020-04-30] MEDS: FAMOTIDINE 20 MG TAB PO SCH (20:32)
[2020-05-01 05:55] VITALS: RESP 18
--- NOTE | 2020-05-01 06:53 | CONS ---
CONSULTATION DATE OF SERVICE: 04/30/2020 REASON FOR CONSULTATION: COVID-19 pneumonia. HISTORY OF PRESENT ILLNESS: The patient is a 60-year-old male with a past medical history of coronary artery disease, COPD, diabetes, presenting to the ER with chief complaints of increasing shortness of breath. The patient apparently started having symptoms on Monday that has been mostly nasal congestion, cough and shortness of breath. The patient had shortness of breath on minimal exertion. Cough is moderate in intensity with occasional sputum production. No hemoptysis. No nausea, no vomiting. No abdominal pain. Did have diarrhea. Apparently the patient did have exposure to coworker who later tested positive for COVID-19 whom with the patient did have lunch. On presentation to the hospital, the patient did have a low-grade fever of 100 degrees Fahrenheit. The patient did have O2 sats of 88% on room air and currently is 96% on 2 L nasal cannula. The patient did have a normal white count. No left shift. D-dimer was normal. Liver enzymes are normal. Creatinine was normal. B12 808, CRP is 12.5, Prograf 0.05. Chest x-ray with bilateral infiltrate. Patient diagnosed with COVID-19 infection. The patient was admitted to the hospital. The patient was started on Remdesivir, dexamethasone and Lovenox. Infectious Disease was consulted for further management. REVIEW OF SYSTEMS: Positive points have been mentioned in HPI. Rest of the systems are negative. PAST MEDICAL HISTORY: Coronary artery disease, COPD, diabetes mellitus, hyperlipidemia, hypertension, [place], pneumonia, SVT. PAST SURGICAL HISTORY: Appendectomy, cardiac ablation, PTCA with stent, bilateral carpal tunnel. SOCIAL HISTORY: Remote history of smoking. No drinking or drug use. FAMILY HISTORY: Father from colon cancer. Mother also with history of colon cancer. Mother with history of coronary artery disease. ALLERGIES: No known drug allergies. MEDICATIONS: The patient is currently on Remdesivir, Zofran Nitrostat, Zestril, Pepcid, Lovenox, dexamethasone, Plavix, Coreg, Lipitor, aspirin, vitamin C, Tylenol. PHYSICAL EXAMINATION: VITAL SIGNS: Blood pressure 131/74 with a pulse of 69, temperature 97.8. He is 96% on 2 L nasal cannula. GENERAL DESCRIPTION: Is a middle-aged male lying in bed in no distress. No tachypnea or accessory muscles of respiration use. HEENT: Examination shows no pallor or scleral icterus. Oral mucous membrane is dry. NECK: Trachea central, no thyromegaly. LUNGS: Unlabored breathing. Coarse breath sounds bilaterally, no wheeze. HEART: S1, S2. Regular rate and rhythm. ABDOMEN: Soft. No tenderness. No guarding or rigidity. No organomegaly. EXTREMITIES: No edema of the feet. SKIN EXAMINATION: No rashes or mass palpable. NEUROLOGICAL: The patient is awake, alert, oriented x3. Mood and affect normal. LABS: Hemoglobin 14.4, white count 6.4. D-dimer was 0.59, creatinine 0.70, ALT of 52. Chest x-ray report as mentioned above. DIAGNOSTIC IMPRESSION AND PLAN: Patient with acute COVID-19 pneumonia, symptom onset 3 days ago in this patient with evidence of hypoxemia and multiple comorbidities, high risk of progression to complete respiratory failure. PLAN: 1. The patient has been started on Remdesivir to continue per protocol in addition to the dexamethasone, Lovenox, and zinc. 2. Droplet isolation and respiratory support. 3. We will follow on clinical condition and further adjust medication if needed. Thank you for this consultation. Will follow this patient along with you. MMODL / IJN: [id number] /
[2020-05-01] MEDS: ASPIRIN 81 MG PO SCH (07:57)
[2020-05-01] MEDS: dexAMETHasone 2 MG TAB PO SCH (07:57)
[2020-05-01] MEDS: FAMOTIDINE 20 MG TAB PO SCH (07:57)
[2020-05-01] MEDS: ASCORBIC ACID 500 MG TAB PO SCH (07:57)
[2020-05-01] MEDS: CLOPIDOGREL 75 MG TAB PO SCH (07:58)
[2020-05-01] MEDS: carvediloL 12.5 MG TAB PO SCH (07:58)
[2020-05-01] MEDS: ATORVASTATIN 80 MG TAB PO SCH (07:58)
[2020-05-01] MEDS: CHOLECALCIFEROL 25 MCG (1000 IU) TABLET PO SCH (07:58)
[2020-05-01] MEDS: lisinopriL 10 MG TAB PO SCH (07:58)
[2020-05-01] MEDS: ZINC SULFATE 220 MG CAP PO SCH (07:58)
[2020-05-01] MEDS: MULTIVITAMINS, THERA 1 EACH TAB PO SCH (07:58)
[2020-05-01] MEDS: ALBUTEROL HFA INHALER INHALATION PRN ×2 (08:37→11:31)
[2020-05-01] MEDS ORDERED: ENOXAPARIN 40 MG/0.4 ML SYRINGE SQ SCH (09:00)
[2020-05-01 10:03] VITALS: BP 142/78; PULSE 77; TEMP 98.4
[2020-05-01] MEDS ORDERED: REMDESIVIR 100 MG in SODIUM CHLORIDE 0.9% 250 ML IVPB SCH (12:00)
--- NOTE | 2020-05-01 13:59 | P.PN ---
Subjective Progress Note Date: 05/01/20 Principal diagnosis: Acute CoVID 19 pneumonitis 60-year-old male, who presents to the emergency department, on 04/29/2020. The patient comes in with complaints of shortness of breath, cough, congestion, and nasal symptoms. He apparently was told recently, while at work, that he was sitting next to another employee, who apparently tested positive for coronavirus. Earlier this week, on Monday, he started having some upper respiratory tract symptoms including nasal congestion, and mild cough and mild shortness of breath. The symptoms progressed through the week, and on , he went to [facility], and had a nasopharyngeal swab test for coronavirus. He tested positive, and was directed to the emergency room he was evaluated. The patient was told in the emergency department that he had COVID 19 pneumonia and because his symptoms have progressed, he was admitted to the hospital. He does tell me that he smoked for many years, and was diagnosed as having COPD, based on his smoking history, and a chest x-ray which in the past showed changes of COPD. He has never seen a ophthalmic medical technologist. Currently, the patient is feeling a bit better. His complaints included chest congestion, cough, shortness of breath, tightness in his chest, wheezing, and occasional clear phlegm production. He was also having lots of upper respiratory tract symptoms including nasal congestion, stuffiness, and drainage. Currently, he is on 2 L nasal O2. The patient is seen today 05/01/2020 in follow-up on the regular medical floor. He is currently sitting up in bed. Awake and alert in no acute distress. Maintaining O2 saturations in the 90s on room air. He's been afebrile. Hemodynamically stable. This is day #2 of Remdesivir. He remains on Lovenox for DVT prophylaxis. Continued on dexamethasone, Pepcid, vitamin C, vitamin D, zinc. Objective - Vital Signs Vital signs: Vital Signs Temp 98.4 F 05/01/20 09:26 Pulse 77 05/01/20 09:26 Resp 18 05/01/20 09:26 BP 142/78 05/01/20 09:26 Pulse Ox 90 L 05/01/20 09:26 Intake & Output 04/30/20 05/01/20 05/01/20 18:59 06:59 18:59 Intake Total 300 Balance 300 Intake: Oral 300 Other: Voiding Method Toilet Toilet # Voids 2 - Exam GENERAL EXAM: Alert, very pleasant 60-year-old gentleman, on room air, comfortable in no apparent distress. HEAD: Normocephalic. EYES: Normal reaction of pupils, equal size. NOSE: Clear with pink turbinates. THROAT: No erythema or exudates. NECK: No masses, no JVD. CHEST: No chest wall deformity. LUNGS: Equal air entry with no crackles, wheeze, rhonchi or dullness. CVS: S1 and S2 normal with no audible murmur, regular rhythm. ABDOMEN: No hepatosplenomegaly, normal bowel sounds, no guarding or rigidity. SPINE: No scoliosis or deformity SKIN: No rashes CENTRAL NERVOUS SYSTEM: No focal deficits, tone is normal in all 4 extremities. EXTREMITIES: There is no peripheral edema. No clubbing, no cyanosis. Peripheral pulses are intact. - Labs CBC & Chem 7: 04/29/20 21:00 04/29/20 21:00 Assessment and Plan Assessment: 1 Acute COVID 19 pneumonitis/pneumonia, with mild hypoxemia. 2 History of CAD, with previous stent placement. 3 Diabetes mellitus. 4 Hyperlipidemia. 5 History of hypertension. 6 History of myocardial infarction. 7 DJD. 8 Prior history of pneumonia. 9 History of SVT. 10 Obesity. 11 Status post ablation for SVT. 12 Prior history of tobacco use, with possible underlying COPD. 13 Prior right carotid endarterectomy. Plan: The patient was seen and evaluated by Dr. Sousa Received day #2 of Remdesivir He is stable from the pulmonary standpoint and cleared for discharge Complete a ten-day course of dexamethasone Continue vitamin supplements Follow-up in the office in 3-4 weeks Return if symptoms worsen I, the cosigning physician, performed a history & physical examination of the patient. Lungs sounds are clear. Maintaining good O2 saturations in the 90s on room air. I discussed the assessment and plan of care with my nurse practitioner, Rachael Cronin. I attest to the above note as dictated by her.
--- NOTE | 2020-05-01 15:34 | P.DS ---
Providers Date of admission: 04/29/20 22:36 Expected date of discharge: 05/01/20 Attending physician: Leslee Meredith Consults: 04/29/20 22:23 Consult Physician Urgent Consulting Provider: Jorge L Sousa Consult Reason/Comments: COVID, hypoxia Do you want consulting provider notified?: Yes 04/29/20 22:24 Consult Physician Urgent Consulting Provider: Lidya Caballero Consult Reason/Comments: COVID, hypoxia Do you want consulting provider notified?: Yes Primary care physician: Deidre Maddox Hospital Course: Final diagnosis -Covid 19 pneumonia -Coronary artery disease with stent -COPD without any acute exacerbation -Hyperlipidemia -Hypertension -History of SVT in the past -Osteoarthritis -DVT prophylaxis -GI prophylaxis Discharge disposition Patient is being discharged in a stable condition with guarded prognosis to home. Patient will continue with home care in the outpatient setting. Patient will follow-up with Dr. Deidre Maddox in the outpatient setting upon discharge. Patient will follow-up with pulmonary Dr. Sousa in the outpatient setting in 3 weeks. Total time taken is greater than 35 minutes. Hospital course 60-year-old male presents emergency Department with chief complaint of shortness of breath, cough congestion. Patient was seen at [facility] yesterday was diagnosed with Covid. Patient had a pulse ox of 80% at that express. Patient i s presently on 2 L of oxygen saturating at 94% patient is feeling well and actually. Patient states symptoms started on Monday. Patient does have a history of COPD states he has not smoked in 11 years. Patient occasionally uses an inhaler. Patient denies any chest pain headache or dizziness. Patient states she has noticed some wheezing. Patient denies any significant leg swelling, leg pain Pain. Patient states she has slight abdominal pain denies any sniffing nausea vomiting diarrhea constipation. was started on Decadron and will be started on remdesivir. Patient doesn't have any sleep apnea but was supposed have a sleep study. 05/01/2020 Patient is currently sitting up in the chair with no acute overnight issues. Patient has been up and walking with no oxygen on room air and denies any increasing shortness of breath. Patient is currently seeing receiving Remdesivir along with dexamethasone and vitamin C and D and zinc supplements. Patient is being evaluated by infectious disease along with pulmonary and patient will follow up with pulmonary outpatient for further testing and follow- up. Instructed to follow-up with primary care provider upon discharge. Patient will continue on dexamethasone along with vitamin supplements and zinc. Patient continues to self isolate for an additional 7-10 days until symptom-free for at least 3 days and instructed to follow-up with primary care provider. Currently no reports of chest pain, worsening shortness of breath, or palpitations. Patient is afebrile. No reports of nausea or vomiting and patient is tolerating diet. Patient will be discharged home today. On exam vital signs are stable. Cardio S1, S2 are muffled. Respiratory system shows diminished breath sounds at the bases with no wheezing or rhonchi n oted. Abdomen is soft, obese, and nontender. Nervous system shows no focal deficits. Please refer to medication reconciliation sheet for a list of medications. Patient Condition at Discharge: Stable Plan - Discharge Summary New Discharge Prescriptions: New dexAMETHasone [Hexadrol] 6 mg PO DAILY 8 Days #8 tab Zinc Sulfate [Orazinc] 220 mg PO DAILY 30 Days #30 cap Acetaminophen Tab [Tylenol] 650 mg PO Q6HR PRN tab PRN Reason: Mild Pain Or Fever > 100.5 Ascorbic Acid [Vitamin C] 1,000 mg PO DAILY 30 Days #60 tab Cholecalciferol [Vitamin D3 (25 Mcg = 1000 Iu)] 75 mcg PO DAILY 30 Days #90 tablet Continue Aspirin 81 mg PO DAILY #30 chew Nitroglycerin Sl Tabs [Nitrostat] 0.4 mg SUBLINGUAL Q5M PRN #25 tab PRN Reason: Chest Pain lisinopriL [Zestril] 10 mg PO BID Ibuprofen [Motrin Ib] 400 - 600 mg PO Q6H PRN PRN Reason: Pain carvediloL [Coreg*] 12.5 mg PO BID-W/MEALS #60 tab Furosemide [Lasix] 20 mg PO DAILY #30 tab Clopidogrel [Plavix] 75 mg PO DAILY #30 tab hydroCHLOROthiazide [Hydrodiuril] 25 mg PO DAILY Fluticasone Nasal [place] [Flonase Nasal [place]] 1 spray EA NOSTRIL BID PRN PRN Reason: Allergy Symptoms Multivitamins, Thera [Multivitamin (formulary)] 1 tab PO DAILY Albuterol Inhaler [Ventolin Hfa Inhaler] 2 puff INHALATION RT-QID PRN PRN Reason: Shortness Of Breath Atorvastatin [Lipitor] 80 mg PO DAILY Discharge Medication List Aspirin 81 mg PO DAILY #30 chew 12/26/16 [Rx] Nitroglycerin Sl Tabs [Nitrostat] 0.4 mg SUBLINGUAL Q5M PRN #25 tab 12/26/16 [Rx] Ibuprofen [Motrin Ib] 400 - 600 mg PO Q6H PRN 09/08/18 [History] lisinopriL [Zestril] 10 mg PO BID 09/08/18 [History] Clopidogrel [Plavix] 75 mg PO DAILY #30 tab 05/04/19 [Rx] Furosemide [Lasix] 20 mg PO DAILY #30 tab 05/04/19 [Rx] carvediloL [Coreg*] 12.5 mg PO BID-W/MEALS #60 tab 05/04/19 [Rx] Albuterol Inhaler [Ventolin Hfa Inhaler] 2 puff INHALATION RT-QID PRN 04/29/20 [History] Atorvastatin [Lipitor] 80 mg PO DAILY 04/29/20 [History] Fluticasone Nasal [place] [Flonase Nasal [place]] 1 spray EA NOSTRIL BID PRN 04/29/20 [History] Multivitamins, Thera [Multivitamin (formulary)] 1 tab PO DAILY 04/29/20 [History] hydroCHLOROthiazide [Hydrodiuril] 25 mg PO DAILY 04/29/20 [History] Acetaminophen Tab [Tylenol] 650 mg PO Q6HR PRN tab 05/01/20 [Rx] Ascorbic Acid [Vitamin C] 1,000 mg PO DAILY 30 Days #60 tab 05/01/20 [Rx] Cholecalciferol [Vitamin D3 (25 Mcg = 1000 Iu)] 75 mcg PO DAILY 30 Days #90 tablet 05/01/20 [Rx] Zinc Sulfate [Orazinc] 220 mg PO DAILY 30 Days #30 cap 05/01/20 [Rx] dexAMETHasone [Hexadrol] 6 mg PO DAILY 8 Days #8 tab 05/01/20 [Rx] Follow up Appointment(s)/Referral(s): Deidre Maddox MD [Primary Care Provider] - 05/05/20 1:30 pm Jorge L Sousa DO [Doctor of Osteopathic Medicine] - 06/03/20 10:15 am Activity/Diet/Wound Care/Special Instructions: Activity limited until follow up follow up with primary care provider upon discharge follow up pulmonary outpatient continue with current diet continue with medications as prescribed. Discharge Disposition: HOME SELF-CARE
--- NOTE | 2020-05-01 15:50 | PN ---
PROGRESS NOTE DATE OF SERVICE: 05/01/2020 REASON FOR FOLLOWUP: COVID-19 pneumonia. INTERVAL HISTORY: The patient was seen on rounds this afternoon. The patient overall is feeling better. He is breathing comfortably. The patient denies having any chest pain or shortness of breath. Cough has significantly decreased in intensity. No sputum. No nausea, no vomiting. No abdominal pain. Diarrhea has slowed down. PHYSICAL EXAMINATION: Blood pressure 142/78 with a pulse of 77, temperature 98.4. He is 90% on room air. General description is a middle-aged male up in the chair in no distress. RESPIRATORY SYSTEM: Unlabored breathing, decreased breath sounds at the bases, no wheeze. HEART: S1, S2. Regular rate and rhythm. ABDOMEN: Soft, no tenderness. LABS: No new labs have been obtained today. DIAGNOSTIC IMPRESSION AND PLAN: Patient with acute COVID-19 pneumonia. The patient earlier had been seen by Pulmonary has cleared his discharge and the patient all set to go home has been sent prescription with dexamethasone, zinc, ascorbic acid and will need close outpatient followup. MMODL / IJN: [id number] /
== END 2020-05-01 15:18 | disposition home or self-care (01) | DRG 177 ==
LOC: EC 20:15 → 4SSUR 22:36
PROVIDERS: ADMIT Hospitalist; ATTEND Hospitalist
PROC: XW033E5 Introduction of Remdesivir Anti-infective into Peripheral Vein, Percutaneous Approach, New Technology Group 5 (ICD-10-PCS; principal; 2020-04-30)
DX: U07.1 COVID-19 (principal); J12.82 Pneumonia due to coronavirus disease 2019; A08.39 Other viral enteritis; E11.9 Type 2 diabetes mellitus without complications; J44.9 Chronic obstructive pulmonary disease, unspecified; R09.02 Hypoxemia; E78.5 Hyperlipidemia, unspecified; I10 Essential (primary) hypertension; M19.041 Primary osteoarthritis, right hand; I25.10 Atherosclerotic heart disease of native coronary artery without angina pectoris; M19.042 Primary osteoarthritis, left hand; I25.2 Old myocardial infarction; Z86.79 Personal history of other diseases of the circulatory system; Z79.82 Long term (current) use of aspirin; Z79.02 Long term (current) use of antithrombotics/antiplatelets; Z79.899 Other long term (current) drug therapy; Z87.891 Personal history of nicotine dependence; Z87.01 Personal history of pneumonia (recurrent); Z95.5 Presence of coronary angioplasty implant and graft; Z90.49 Acquired absence of other specified parts of digestive tract; Z87.19 Personal history of other diseases of the digestive system; Z87.39 Personal history of other diseases of the musculoskeletal system and connective tissue; Z80.0 Family history of malignant neoplasm of digestive organs; Z82.49 Family history of ischemic heart disease and other diseases of the circulatory system; Z83.3 Family history of diabetes mellitus; E66.9 Obesity, unspecified; Z68.38 Body mass index [BMI] 38.0-38.9, adult
CPT/HCPCS: 36415; 71046; 80053; 82728; 83605; 83615; 83735; 84145; 85025; 85379; 85610; 85730; 86140; 93005; 94640; 96374; 99285

== ENCOUNTER → 2020-06-17 | Outpatient (CLI) | payer BC | END | disposition home or self-care (01) | LOC: LABWHC1 12:32 | PROVIDERS: ATTEND Family Medicine | DX: R06.09 Other forms of dyspnea (principal) | CPT/HCPCS: 36415; 85379 ==

== ENCOUNTER → 2020-06-23 | Outpatient (CLI) | payer BC ==
--- NOTE | 2020-06-23 13:00 | ECHOF ---
Referral Reason:R06.09 dyspnea MEASUREMENTS -------- HEIGHT: 182.9 cm WEIGHT: 124.7 kg BP: IVSd: 1.6 cm (0.6 - 1.1) LVIDd: 5.9 cm (3.9 - 5.3) LVPWd: 1.5 cm (0.6 - 1.1) IVSs: 1.8 cm LVIDs: 4.9 cm LVPWs: 1.7 cm LA Diam: 4.8 cm (2.7 - 3.8) Ao Diam: 3.5 cm (2.0 - 3.7) MV EXCURSION: 18.547 mm (> 18.000) MV EF SLOPE: 67 mm/s (70 - 150) EPSS: 1.0 cm MV E Farhan: 0.75 m/s MV DecT: 191 ms MV A Farhan: 0.89 m/s MV E/A Ratio: 0.84 AV maxP.55 mmHg AV meanP.47 mmHg RAP: 5.00 mmHg RVSP: 42.07 mmHg FINDINGS -------- Sinus rhythm. Morbid Obesity This was a techncally difficult study with suboptimal views, , Definity utilized for enhancement of images. The left ventricular size is normal. There is moderate concentric left ventricular hypertrophy. O verall left ventricular systolic function is moderate-severely impaired with, an EF between 30 - 35 % . Apical anterior LV wall motion is hypokinetic. Anterseptal Hypokinesis Hamilton Hypokinesis. The right ventricle is normal in size. The left atrium is moderately dilated. The right atrial size is normal. There is severe aortic stenosis present. Peak/mean gradient across the Aortic Valve is 63.55mmHg / 44.47mmHg. Mild mitral annular calcification present. Mild mitral regurgitation is present. Mild tricuspid regurgitation present. There is mild pulmonary hypertension. The right ventricular systolic pressure, as measured by Doppler, is 42.07mmHg. The pulmonic valve was not well visualized. The aortic root size is normal. There is no pericardial effusion. CONCLUSIONS -------- 1. Morbid Obesity 2. This was a techncally difficult study with suboptimal views, , Definity utilized for enhancement o f images. 3. The left ventricular size is normal. 4. There is moderate concentric left ventricular hypertrophy. 5. Overall left ventricular systolic function is moderate-severely impaired with, an EF between 30 - 35 %. 6. Apical anterior LV wall motion is hypokinetic. 7. Anterseptal Hypokinesis 8. Hamilton Hypokinesis. 9. The right ventricle is normal in size. 10. The left atrium is moderately dilated. 11. The right atrial size is normal. 12. There is severe aortic stenosis present. 13. Peak/mean gradient across the Aortic Valve is 63.55mmHg / 44.47mmHg. 14. Mild mitral annular calcification present. 15. Mild mitral regurgitation is present. 16. Mild tricuspid regurgitation present. 17. The right ventricular systolic pressure, as measured by Doppler, is 42.07mmHg. 18. The pulmonic valve was not well visualized. 19. The aortic root size is normal. 20. There is no pericardial effusion. ANODIZE MACHINE OPERATOR: Carolyn Galvan RDCS
== END | disposition home or self-care (01) ==
LOC: RADECHMAIN 10:51
PROVIDERS: ATTEND Family Medicine
DX: I08.1 Rheumatic disorders of both mitral and tricuspid valves (principal); E66.01 Morbid (severe) obesity due to excess calories
CPT/HCPCS: 93306; Q9950

== ENCOUNTER → 2020-07-06 | Outpatient (CLI) | payer BC ==
[2020-07-06 21:14] LABS: African American GFR (CKD) 93.7 (60.0-200.0); Albumin 4.7 g/dL (3.80-4.90); Albumin/Globulin Ratio 1.88 (1.60-3.17); Anion Gap 9.1 mmol/L (4.00-12.00); Calcium 9.4 mg/dL (8.7-10.3); Carbon Dioxide 32.9 mmol/L (21.6-31.8); Chol/HDL Ratio 4.1; Globulin 2.5 g/dL (1.6-3.3); LDL Cholesterol,Calculated 102.8 mg/dL (0.0-131.0); Non-African American GFR(CKD) 80.9 (60.0-200.0); Potassium 4.9 mmol/L (3.5-5.5); Total Bilirubin 0.7 mg/dL (0.3-1.2); Total Protein 7.2 g/dL (6.2-8.2); VLDL Calculation 21.2 mg/dL (5.00-40.00)
== END | disposition home or self-care (01) ==
LOC: LABWHC1 09:14
PROVIDERS: ATTEND Internal Medicine Interventional Cardiology
DX: E78.2 Mixed hyperlipidemia (principal)
CPT/HCPCS: 36415; 80053; 80061

== ENCOUNTER 2020-07-08 05:50 | Day surgery (SDC) | payer BC ==
[2020-07-06 10:48] VITALS: BMI 38.3
[2020-07-08] MEDS ORDERED: ASPIRIN 325 MG TAB PO STA (06:11)
[2020-07-08] MEDS ORDERED: ALPRAZolam 0.25 MG TAB PO PRN (06:11)
[2020-07-08] MEDS ORDERED: SODIUM CHLORIDE 0.9% 1,000 ML in EMPTY BAG 1 BAG IV ONE (06:11)
[2020-07-08] MEDS ORDERED: ALPRAZolam 0.5 MG TAB PO PRN (06:11)
[2020-07-08] MEDS ORDERED: ATORVASTATIN 80 MG TAB PO STA (06:11)
[2020-07-08] MEDS ORDERED: NITROGLYCERIN SL TABS 0.4 MG TAB SUBLINGUAL PRN (06:11)
[2020-07-08 06:27] VITALS: TEMP 100.1
[2020-07-08 06:31] LABS: Basophils # (A) 0.1 k/uL (0-0.2); Basophils % (A) 1 %; Eosinophils # (A) 0.3 k/uL (0-0.7); Eosinophils % (A) 3 %; HCT 50.9 % (39.0-53.0); HGB 16.7 gm/dL (13.0-17.5); Lymphocytes # (A) 2.3 k/uL (1.0-4.8); Lymphocytes % (A) 25 %; MCH 29.7 pg (25.0-35.0); MCHC 32.9 g/dL (31.0-37.0); MCV 90.3 fL (80.0-100.0); Mean Platelet Volume 8.2; Monocytes # (A) 0.8 k/uL (0-1.0); Monocytes % (A) 9 %; Neutrophils # (A) 5.6 k/uL (1.3-7.7); Neutrophils % (A) 60 %; Platelet Count 198 k/uL (150-450); RBC 5.63 m/uL (4.30-5.90); RDW 12.9 % (11.5-15.5); WBC 9.3 k/uL (3.8-10.6)
[2020-07-08] MEDS ORDERED: ASPIRIN 81 MG ONE (06:34)
[2020-07-08] MEDS ORDERED: fentaNYL (PF) 50 MCG/ML 2 ML AMP ONE (06:59)
[2020-07-08] MEDS: BENZOCAINE SPRAY 1 CAN MUCOUS MEM ONE ×2 (07:12→07:20)
[2020-07-08] MEDS ORDERED: IV FLUID CONTINUATION 1,000 ML IV ONE (07:13)
[2020-07-08] MEDS ORDERED: LIDOCAINE 1% INJ 10MG/ML (20 ML MDV) ONE ×2 (07:19→08:13)
[2020-07-08] MEDS ORDERED: fentaNYL (PF) 50 MCG/ML 2 ML AMP IV ONE (07:22)
[2020-07-08] MEDS: MIDAZOLAM 2 MG/2 ML VIAL IV ONE ×2 (07:22→07:25)
[2020-07-08 07:36] VITALS: RESP 20
[2020-07-08] MEDS ORDERED: VERAPAMIL 2.5 MG/ML 2 ML AMP ONE (07:45)
[2020-07-08] MEDS: LIDOCAINE 1% INJ 10MG/ML (20 ML MDV) SQ ONE ×2 (08:04→08:11)
[2020-07-08] MEDS ORDERED: VERAPAMIL SYRINGE (5 MG/10 ML) INTRAARTER ONE (08:08)
[2020-07-08] MEDS ORDERED: LIDOCAINE 1% INJ 10MG/ML (20 ML MDV) SQ ONE (08:14)
[2020-07-08] MEDS ORDERED: HEPARIN SODIUM 1,000 UN/ML (10ML VL) ONE (08:17)
[2020-07-08] MEDS ORDERED: HEPARIN SODIUM 1,000 UN/ML (10ML VL) IV ONE (08:18)
[2020-07-08] MEDS ORDERED: IOPAMIDOL-370 125ML BTL INJ ONE (08:41)
[2020-07-08] MEDS ORDERED: RX INFO: IV CONTRAST WAS GIVEN 1 EACH MISC MISCELLANE PRN (08:57)
[2020-07-08] MEDS ORDERED: SODIUM CHLORIDE 0.9% 1,000 ML IV SCH (09:00)
[2020-07-08] MEDS ORDERED: hydroCHLOROthiazide 25 MG TAB PO SCH (09:00)
[2020-07-08] MEDS ORDERED: lisinopriL 10 MG TAB PO SCH (09:00)
[2020-07-08 09:29] LABS: O2 Sat Blood Gas 75.8 %
[2020-07-08 09:30] LABS: O2 Sat Blood Gas 94.3 %
--- NOTE | 2020-07-08 10:10 | ECHOT ---
TRANSESOPHAGEAL ECHOCARDIOGRAM INDICATION: Evaluation of aortic valve disease. PROCEDURE: After explaining the procedure to the patient its risks and the complications, his blood pressure, heart rate, O2 saturation was monitored. The throat was sprayed with Cetacaine. He received 3 mg intravenous Versed, 50 mcg intravenous fentanyl. The probe was introduced into the esophagus without difficulty. Images were obtained. Following that, the probe was removed. FINDINGS: Left atrial size is normal. Left atrial appendage is normal. Left ventricular size is normal. There is evidence of global hypokinesis. The estimated ejection fraction is 40% to 45%/ The aortic valve is a tricuspid valve with fibrocalcific changes and reduced opening. By planimetry the valve area was 0.7 cm2. The mitral valve revealed mild mitral anulus calcification. Tricuspid valve is normal. Descending thoracic aorta shows mild atherosclerotic changes. No pericardial effusion was noted. Contrast bubble study revealed no evidence of shunting across the interatrial septum with Valsalva maneuver. Doppler pulse wave and color Doppler obtained and revealed mild mitral with moderate tricuspid regurgitation the mean gradient across the aortic valve was 30 mmHg with a peak of 44 mmHg. There was no shunting by color Doppler study. CONCLUSION: 1. Normal left ventricular size with moderate global hypokinesis. 2. Tricuspid aortic valve with reduced opening and by planimetry, 0.7 cm2 with a mean gradient of 30 mmHg consistent with moderate to severe aortic stenosis. 3. Mild mitral with moderate tricuspid regurgitation. 4. No shunting across the interatrial septum. 5. Mild atherosclerotic changes of the descending thoracic aorta. MMODL / IJN: [id number] /
[2020-07-08 14:16] VITALS: BP 96/55; PULSE 76
--- NOTE | 2020-07-08 15:31 | CC ---
CARDIAC CATHETERIZATION REPORT Mr. Lindo is a 60-year-old male with known history of coronary artery disease, history of aortic valve disease and cardiomyopathy who presented with symptoms of progressive dyspnea with increase in the gradient across the aortic valve. In view of that, recommendation was made regarding cardiac catheterization. The procedure as well as its risks and the complications were discussed with the patient, who was in full understanding and agreement. PROCEDURE DESCRIPTION: Patient was brought to the tanbark laborer in a fasting semi-sedated state. After receiving fentanyl and Benadryl and achieving a moderate conscious sedated state, using Xylocaine anesthesia and Seldinger technique, a 6-Sammarinese sheath was introduced in the right radial artery. Subsequently, using Xylocaine anesthesia and Seldinger technique, an 8- Sammarinese sheath was introduced in the right femoral vein. Selective right and left coronary angiography was performed using 5-Sammarinese 3.5 bend right and left Belen catheters. Multiple views were taken of the arteries, including hemiaxial views. Following that the aortic valve was crossed and a 30-degree ALEX view of the left ventricle was obtained. Following that, right heart catheterization was performed using Emery-Karl catheter. Multiple pressures and samples were obtained. Cardiac output by thermodilution was calculated. Following that, catheter and sheath were removed. Hemostasis was obtained with deployment of a TR band on the right radial area and compression of the right femoral vein. There was no immediate complication. Patient received 5000 units of intravenous heparin as well as intraarterial verapamil. FINDINGS: HEMODYNAMICS: Pulmonary artery systolic pressure of 32 to 34 with end-diastolic of 24 with a mean of 30 mmHg. Pulmonary capillary wedge pressure: A-wave was 22, V- wave of 21 with a mean of 20 mmHg. Right ventricular systolic pressure of 40 with an end- diastolic of 8. Right atrial A-wave of 10, V-wave of 7 with a mean of 6 mmHg. Left ventricular end-diastolic pressure of 22 mmHg. Left ventricular systolic pressure of 130 mmHg. Ascending aortic pressure of 80 mmHg. The mean gradient was calculated at 34 mmHg with a valve area of 0.9 cm2. Cardiac output by thermodilution was 6.2 L/minute and by Roxy 8.2 L/minute. Right atrial saturation 74%, pulmonary saturation of 76%, femoral artery saturation of 94%. FLUOROSCOPY: There was calcification involving the aortic valve as well as the left anterior descending artery. LEFT MAIN: This is a short-sized vessel bifurcating into left circumflex, left anterior descending artery. Left main coronary artery has no evidence of high-grade stenosis. LEFT ANTERIOR DESCENDING ARTERY: This is a large-sized vessel reaching to the apex with a wrap around the apex segment. The stented segment in the mid LAD is patent. There is a 20% to 30% plaque proximal to the stent. The distal segment has intimal disease without any evidence of high-grade stenosis. LEFT CIRCUMFLEX: This is a dominant vessel, large in caliber, bifurcating distally into PDA and posterolateral segment and branches giving rise to a proximal left circumflex. The left PDA has a 60-70% plaque. The rest of the vessel has no high-grade stenosis. RIGHT CORONARY ARTERY: This is a small nondominant vessel that has a 70% stenosis proximally prior to the takeoff of the acute marginal branch. LEFT VENTRICULOGRAM: Left ventriculogram was performed in 30-degree ALEX view and revealed anteroapical akinesis. Ejection fraction is estimated at 35% to 40%. CONCLUSION: 1. Patent stent of the LAD with mild disease in the LAD. 2. Significant disease in a small nondominant right coronary artery with no change since April of 2019. 3. Evidence of severe aortic stenosis. 4. Moderately severely impaired left ventricular systolic function with segmental wall motion abnormality consistent with his prior myocardial infarction from 2017. RECOMMENDATIONS: In view of the findings, I have recommended proceeding with evaluation for possible aortic valve replacement. Those findings and recommendations were discussed with the patient and his family, and they are in full understanding and agreement. Duration of the sedation was 61 minutes. MMTHOMAS / ROSSIN: [id number] / EFREM
--- NOTE | 2020-07-08 15:31 | LTR ---
July 08, 2020 To: Dr. Deidre Maddox Re: Chicho Lindo (58) Dear Dr. Maddox, I had the pleasure of performing cardiac catheterization on Mr. Lindo at [facility] on July 08, and a full copy of the procedure note will be forwarded to you. In brief, he was found to have no evidence of restenosis in the LAD with evidence of severe aortic stenosis and moderately severely impaired left ventricular systolic function. Based on those findings, I have recommended proceeding with evaluation for possible aortic valve replacement. I will keep you updated on his progress. Thank you again for allowing me to participate in his care. Please feel free to call with any questions. Sincerely yours, Flaco Lozano M.D. NIESHA / EL: [id number] /
[2020-07-08] MEDS ORDERED: carvediloL 12.5 MG TAB PO SCH (17:30)
[2020-07-08] MEDS ORDERED: ATORVASTATIN 80 MG TAB PO SCH (21:00)
[2020-07-08] MEDS ORDERED: CLOPIDOGREL 75 MG TAB PO SCH (21:00)
[2020-07-09] MEDS ORDERED: ASPIRIN 81 MG PO SCH (09:00)
== END 2020-07-08 14:05 | disposition home or self-care (01) ==
LOC: CATHCVL 05:50
PROVIDERS: ATTEND Internal Medicine Interventional Cardiology
DX: I25.10 Atherosclerotic heart disease of native coronary artery without angina pectoris (principal); I08.3 Combined rheumatic disorders of mitral, aortic and tricuspid valves; I10 Essential (primary) hypertension; I73.9 Peripheral vascular disease, unspecified; E78.00 Pure hypercholesterolemia, unspecified; Z86.16 Personal history of COVID-19; Z20.822 Contact with and (suspected) exposure to COVID-19; E78.2 Mixed hyperlipidemia; I42.9 Cardiomyopathy, unspecified; Z87.891 Personal history of nicotine dependence; G47.33 Obstructive sleep apnea (adult) (pediatric); I65.23 Occlusion and stenosis of bilateral carotid arteries; Z95.5 Presence of coronary angioplasty implant and graft; I70.0 Atherosclerosis of aorta; Z90.89 Acquired absence of other organs; Z98.890 Other specified postprocedural states; Z82.49 Family history of ischemic heart disease and other diseases of the circulatory system; Z79.02 Long term (current) use of antithrombotics/antiplatelets; Z79.82 Long term (current) use of aspirin; Z79.899 Other long term (current) drug therapy
CPT/HCPCS: 93312; 93320; 93325; 93460; 85018; 82810; 85025; 87635; C1769 ×3; C1894 ×3; J2250; J2001; J3010; J1644; Q9967

== ENCOUNTER → 2020-07-31 | Outpatient (CLI) | payer BC ==
[2020-07-31 21:09] LABS: African American GFR (CKD) 106.5 (60.0-200.0); Albumin 4.7 g/dL (3.80-4.90); Albumin/Globulin Ratio 2.04 (1.60-3.17); BUN/Creat Ratio 24.44 Ratio (12.00-20.00); Calcium 9.4 mg/dL (8.7-10.3); Chol/HDL Ratio 3.45; Globulin 2.3 g/dL (1.6-3.3); LDL Cholesterol,Calculated 68.4 mg/dL (0.0-131.0); Non-African American GFR(CKD) 91.9 (60.0-200.0); Total Bilirubin 0.8 mg/dL (0.2-1.2); VLDL Calculation 29.6 mg/dL (5.00-40.00)
== END | disposition home or self-care (01) ==
LOC: LABWHC1 09:31
PROVIDERS: ATTEND Internal Medicine Interventional Cardiology
DX: E78.2 Mixed hyperlipidemia (principal)
CPT/HCPCS: 36415; 80053; 80061

== ENCOUNTER → 2020-08-10 | Outpatient (CLI) | payer BC ==
[2020-08-10 09:08] LABS: Appearance,Urine Clear (Clear); Bilirubin,Urine Negative (Negative); Blood,Urine Negative (Negative); Color,Urine Yellow; Glucose,Urine (UA) Negative (Negative); Ketones,Urine Negative (Negative); Leukocyte Esterase,Urine Negative (Negative); Nitrite,Urine Negative (Negative); PH, Urine 5.5 (5.0-8.0); Protein,Urine Trace (Negative); Urobilinogen,Urine <2.0 mg/dL (<2.0)
[2020-08-10 09:30] LABS: Partial Thromboplastin Time 23.1 sec (22.0-30.0); Prothrombin Time 10.7 sec (9.0-12.0)
[2020-08-10 16:04] LABS: Basophils # (A) 0.03 X 10*3/uL (0.00-0.10); Basophils % (A) 0.3 %; Eosinophils # (A) 0.25 X 10*3/uL (0.04-0.35); Eosinophils % (A) 2.5 %; HCT 47.6 % (39.6-50.0); HGB 15.1 g/dL (13.0-17.0); Lymphocytes % (A) 21.1 %; MCH 28.9 pg (27.0-32.0); MCHC 31.7 g/dL (32.0-37.0); MCV 91.2 fL (80.0-97.0); Monocytes # (A) 0.98 X 10*3/uL (0.20-1.00); Monocytes % (A) 9.8 %; Neutrophils # (A) 6.57 X 10*3/uL (1.80-7.70); Neutrophils % (A) 65.9 %; Platelet Count 199 X 10*3/uL (140-440); RBC 5.22 X 10*6/uL (4.40-5.60); RDW 12.4 % (11.5-14.5); WBC 9.97 X 10*3/uL (4.50-10.00)
[2020-08-10 18:45] LABS: African American GFR (CKD) 93.7 (60.0-200.0); Albumin 4.4 g/dL (3.80-4.90); Albumin/Globulin Ratio 1.91 (1.60-3.17); Anion Gap 7.5 mmol/L (4.00-12.00); Bilirubin, Conjugated 0.2 mg/dL (0.20-0.40); Bilirubin,Unconjugated 0.3 mg/dL; Calcium 9.8 mg/dL (8.7-10.3); Carbon Dioxide 29.5 mmol/L (21.6-31.8); Chol/HDL Ratio 3.15; Globulin 2.3 g/dL (1.6-3.3); LDL Cholesterol,Calculated 70.8 mg/dL (0.0-131.0); Magnesium 1.9 mg/dL (1.5-2.4); Non-African American GFR(CKD) 80.9 (60.0-200.0); Total Bilirubin 0.5 mg/dL (0.2-1.2); Total Protein 6.7 g/dL (6.2-8.2); VLDL Calculation 17.2 mg/dL (5.00-40.00)
== END | disposition home or self-care (01) ==
LOC: LABWHC1 07:57
PROVIDERS: ATTEND Thoracic Surgery (Cardiothoracic Vascular Surgery)
DX: Z01.812 Encounter for preprocedural laboratory examination (principal); E78.5 Hyperlipidemia, unspecified; N28.9 Disorder of kidney and ureter, unspecified; E11.9 Type 2 diabetes mellitus without complications; I35.0 Nonrheumatic aortic (valve) stenosis; R35.0 Frequency of micturition; E07.9 Disorder of thyroid, unspecified; R58 Hemorrhage, not elsewhere classified; Z79.899 Other long term (current) drug therapy; E87.8 Other disorders of electrolyte and fluid balance, not elsewhere classified
CPT/HCPCS: 36415; 80053; 80061; 81003; 82248; 83036; 83735; 83880; 84443; 85025; 85610; 85730; 87086

== ENCOUNTER → 2020-08-11 | Outpatient (CLI) | payer BC ==
--- NOTE | 2020-08-11 13:15 | CT ---
EXAMINATION TYPE: CT TAVR Planning DATE OF EXAM: 08/11/2020 HISTORY: 60-year-old male Nonrheumatic aortic (valve) insufficiency, pre op planning CT DLP: 2840.7 mGycm Automated Exposure Control for Dose Reduction was Utilized. CONTRAST: CT scan of the chest, abdomen and pelvis is performed with IV Contrast, patient injected with 125 mL of Isovue 370. COMPARISON: Correlation CT abdomen and pelvis 09/10/2018 TECHNIQUE: Helical imaging obtained through the chest, abdomen and pelvis during arterial phase faustina fernando administration of radiographic contrast intravenously. Coronal and sagittal MIP reconstructions w ere performed. FINDINGS: See report from [facility] regarding preprocedural planning CHEST: Lower Neck and Thyroid: No significant findings Lungs: Mild diffuse bronchial wall thickening could reflect bronchitis or chronic asthma. Central Airway: No significant findings Pleura: No significant findings Pulmonary Arteries: Enlarged on the right and left sides measuring 2.9 and 3.3 cm, respectively, sugg esting underlying pulmonary arterial hypertension. Heart and Pericardium: No effusion. LAD coronary artery calcifications. Lymph Nodes: No significant findings Mediastinum & Esophagus: No significant findings ABDOMEN/PELVIS: Please note arterial phase of the imaging limits detailed evaluation of the solid abdominal organs. Liver: Enlarged at 19.2 cm. There may be underlying fatty infiltration. Spleen: No significant findings Kidneys: No significant findings Adrenal Glands: No significant findings Pancreas: No significant findings Gallbladder: No significant findings Bowel and Mesentery: No significant findings Lymph Nodes: A couple prominent gastrocolic ligament lymph nodes measuring up to 1.1 cm, probably agustin ctive. Urinary Bladder: No significant findings Pelvic Organs: No significant findings Other: Moderate prostatic calcifications infrarenal abdominal aorta and common iliac arteries. Small fatty umbilical hernia measuring 3.0 cm. Moderate degenerative change left hip and [id number] a t the right hip. Hypertrophic facet arthropathy mid to lower lumbar spine. Other Lines/Tubes/Devices/Hardware: None IMPRESSION: 1. LAD coronary artery calcifications. Moderate atherosclerotic calcifications infrarenal abdominal a alicia and common iliac arteries. 2. There may be underlying pulmonary artery hypertension. Clinically correlate. 3. Mild hepatomegaly at 19.2 cm. There may be mild fatty infiltration of the liver. 4. Incidentally, a couple prominent gastrohepatic ligament lymph nodes in the upper abdomen measuring up to 1.1 cm are borderline enlarged, probably reactive. If precautionary follow-up is desired, a 6 month follow-up CT can be obtained.
== END | disposition home or self-care (01) ==
LOC: RADCTMAIN 10:07
PROVIDERS: ATTEND Thoracic Surgery (Cardiothoracic Vascular Surgery)
DX: Z01.818 Encounter for other preprocedural examination (principal); I25.10 Atherosclerotic heart disease of native coronary artery without angina pectoris; I70.8 Atherosclerosis of other arteries; R16.0 Hepatomegaly, not elsewhere classified; R59.0 Localized enlarged lymph nodes
CPT/HCPCS: 71275; 74174; Q9967

== ENCOUNTER → 2020-09-24 | Outpatient (CLI) | payer BC ==
[2020-09-24 09:41] LABS: HCT 47.1 % (39.0-53.0); HGB 15.3 gm/dL (13.0-17.5); MCH 29.2 pg (25.0-35.0); MCHC 32.4 g/dL (31.0-37.0); Platelet Count 207 k/uL (150-450); RBC 5.24 m/uL (4.30-5.90); RDW 12.8 % (11.5-15.5); WBC 9.6 k/uL (3.8-10.6)
[2020-09-24 09:46] LABS: INR 1.1 (<1.2); Partial Thromboplastin Time 23.4 sec (22.0-30.0); Prothrombin Time 11.3 sec (9.0-12.0)
[2020-09-24 09:49] LABS: ALT 45 U/L (4-49); AST 35 U/L (17-59); African American GFR (CKD) >90 (>60 ml/min/1.73 sqM); Albumin 4.4 g/dL (3.5-5.0); Alkaline Phosphatase 72 U/L (38-126); Anion Gap 7 mmol/L; Blood Urea Nitrogen 17 mg/dL (9-20); Calcium 9.6 mg/dL (8.4-10.2); Carbon Dioxide 34 mmol/L (22-30); Chloride 96 mmol/L (98-107); Glucose 277 mg/dL (74-99); Magnesium 1.8 mg/dL (1.6-2.3); Non-African American GFR(CKD) >90 (>60 ml/min/1.73 sqM); Potassium 4.6 mmol/L (3.5-5.1); Sodium 137 mmol/L (137-145); Total Bilirubin 1.1 mg/dL (0.2-1.3); Total Protein 6.9 g/dL (6.3-8.2)
[2020-09-24 10:16] LABS: Appearance,Urine Clear (Clear); Bilirubin,Urine Negative (Negative); Blood,Urine Negative (Negative); Color,Urine Yellow; Glucose,Urine (UA) Negative (Negative); Ketones,Urine Negative (Negative); Leukocyte Esterase,Urine Negative (Negative); Nitrite,Urine Negative (Negative); PH, Urine 5.5 (5.0-8.0); Protein,Urine Trace (Negative); Specific Gravity,Urine 1.029 (1.001-1.035); Urobilinogen,Urine <2.0 mg/dL (<2.0)
--- NOTE | 2020-09-24 15:12 | XR ---
EXAMINATION TYPE: XR chest 2V DATE OF EXAM: 09/24/2020 COMPARISON: Prior chest x-ray 04/29/2020 HISTORY: I35.1 aortic stenosis,Z01.818 TECHNIQUE: Frontal and lateral views of the chest are obtained. FINDINGS: There is no focal air space opacity, pleural effusion, or pneumothorax seen. The cardiac silhouette size is within normal limits. The osseous structures are intact. There are prominent shyanne g volumes. IMPRESSION: No acute cardiopulmonary process.
[2020-09-24 16:56] LABS: Hemoglobin A1C 10.3 % (4.0-6.0)
[2020-09-25 01:19] LABS: Chol/HDL Ratio 3.93; Cholesterol 110 mg/dL (0-200); LDL Cholesterol,Calculated 54.2 mg/dL (0.0-131.0)
[2020-09-25 03:15] LABS: Hepatitis A Antibody IgM Non-Reactive (Non-Reactive); Hepatitis B Surface Antigen Non-Reactive (Non-Reactive); Hepatitis C IgG Antibody Non-Reactive (Non-Reactive)
[2020-09-25 13:08] LABS: Hepatitis B Core IgM Non-Reactive (Non-Reactive)
== END | disposition home or self-care (01) ==
LOC: LABPAT 08:06
PROVIDERS: ATTEND Thoracic Surgery (Cardiothoracic Vascular Surgery)
DX: Z01.818 Encounter for other preprocedural examination (principal); I35.0 Nonrheumatic aortic (valve) stenosis; Z20.822 Contact with and (suspected) exposure to COVID-19; I45.10 Unspecified right bundle-branch block; I44.5 Left posterior fascicular block; I45.2 Bifascicular block; R94.31 Abnormal electrocardiogram [ECG] [EKG]
CPT/HCPCS: 80061; 80053; 80074; 84443; 83735; 85027; 85610; 85730; 81003; 87070; 87086; 83036; 71046; 93970; 93922; 93005; 36415; U0003; C9803; U0005

== ENCOUNTER 2020-09-28 05:25 | Inpatient (IN) | payer BC ==
[~2020-09-28 05:25] MED LIST changes: -HYDROmorphone 0.5 MG/0.5 ML SYRINGE IVP PRN; -HYDROmorphone 1 MG/ML 1 ML SYRINGE IVP PRN; -LACTATED RINGERS 1,000 ML IV SCH; +METOPROLOL TARTRATE 12.5 MG TAB PO ONE; -ONDANSETRON 4 MG/2 ML VIAL IVP ONE; -ONDANSETRON 4 MG/2 ML VIAL IVP PRN; +ceFAZolin 1,000 MG in SODIUM CHLORIDE 0.9% IRRIGATIO 1,000 ML IRRIGATION ONE; -ceFAZolin IN SWFI 2 GM/20 ML SYRINGE IVP ONE; -fentaNYL (PF) 50 MCG/ML 2 ML AMP IV PRN
[2020-09-28] MEDS ORDERED: LIDOCAINE 1% (10MG/ML) FOR IV START INTRADERMA PRN (05:46)
[2020-09-28] MEDS ORDERED: LACTATED RINGERS 1,000 ML IV SCH (05:46)
[2020-09-28 06:08] LABS: Glucose,Whole Blood 225 mg/dL (75-99)
[2020-09-28] MEDS ORDERED: INSULIN ASPART (NovoLOG) 100 UNIT/ML VIAL SQ ONE (06:55)
[2020-09-28] MEDS ORDERED: HEPARIN SODIUM 1,000 UN/ML (10ML VL) IV ONE (07:00)
[2020-09-28] MEDS ORDERED: MANNITOL 25% 12.5 GM/50 ML VIAL IV ONE (07:00)
[2020-09-28] MEDS ORDERED: ceFAZolin 3 GM in SODIUM CHLORIDE 0.9% 100 ML IVPB ONE (07:00)
[2020-09-28] MEDS ORDERED: ASPIRIN 325 MG TAB PO ONE (07:00)
[2020-09-28] MEDS ORDERED: ALBUMIN HUMAN 5% 500 ML IVPB ONE (07:00)
[2020-09-28] MEDS ORDERED: PROTAMINE SULFATE 10 MG/ML 25 ML VIAL IV ONE ×2 (07:00→07:26)
[2020-09-28] MEDS ORDERED: NITROGLYCERIN-D5W PMX 50 MG in DEXTROSE/WATER 1 250ML.BAG IV ONE (07:00)
[2020-09-28] MEDS ORDERED: PHENYLEPHRINE 40 MG in SODIUM CHLORIDE 0.9% 250 ML IV ONE (07:00)
[2020-09-28] MEDS ORDERED: CALCIUM CHLORIDE 100 MG/ML 10 ML SYRINGE IV ONE (07:00)
[2020-09-28] MEDS ORDERED: ATORVASTATIN 10 MG TAB PO ONE (07:00)
[2020-09-28] MEDS ORDERED: ALBUMIN HUMAN 25% 50 ML IV ONE (07:00)
[2020-09-28] MEDS ORDERED: CARDIOPLEGIC SOLN (K+ 16 MEQ/L 1,000 ML with SODIUM BICARB (1 MEQ/ML) 20 ML, LIDOCAINE ... PERFUSION ONE ×3 (07:00)
[2020-09-28] MEDS ORDERED: MAGNESIUM SULFATE MG 500 MG/ML IV ONE (07:00)
[2020-09-28] MEDS ORDERED: NITROGLYCERIN-D5W PMX 25 MG/250 ML BTL IV ONE (07:00)
[2020-09-28] MEDS ORDERED: PROTAMINE SULFATE 250 MG in EMPTY BAG 1 BAG IV ONE (07:00)
[2020-09-28] MEDS ORDERED: MUPIROCIN 2% OINT 22 GM TUBE NASAL ONE (07:00)
[2020-09-28] MEDS ORDERED: INSULIN REGULAR 100 UNIT in SODIUM CHLORIDE 0.9% 100 ML IV ONE (07:00)
[2020-09-28] MEDS ORDERED: SODIUM CHLORIDE 0.9% 1,000 ML IV ONE (07:00)
[2020-09-28] MEDS ORDERED: HEPARIN SODIUM,PORCINE 5,000 UNIT in SODIUM CHLORIDE 0.9% 500 ML 500 ML IV ONE (07:00)
[2020-09-28] MEDS ORDERED: TRANEXAMIC ACID 2,000 MG in SODIUM CHLORIDE 0.9% 80 ML IV ONE ×4 (07:00)
[2020-09-28] MEDS ORDERED: NITROGLYCERIN SL TABS 0.4 MG TAB SUBLINGUAL ONE (07:00)
[2020-09-28] MEDS ORDERED: SODIUM BICARB 8.4% 50 ML SYR (1 MEQ/ML) IV ONE (07:00)
[2020-09-28] MEDS ORDERED: NOREPINEPHRINE 4 MG in SODIUM CHLORIDE 0.9% 250 ML IV ONE (07:00)
[2020-09-28] MEDS ORDERED: MIDAZOLAM 2 MG/2 ML VIAL IV PRN (07:00)
[2020-09-28] MEDS ORDERED: PAPAVERINE 360 MG in SODIUM CHLORIDE 0.9% 90 ML IV ONE ×2 (07:00→09:31)
[2020-09-28] MEDS ORDERED: propofoL 1,000 MG/100 ML VIAL IV ONE (07:00)
[2020-09-28] MEDS ORDERED: PHENYLEPHRINE 10 MG/ML VIAL IV ONE (07:00)
[2020-09-28] MEDS ORDERED: CLEVIDIPINE BUTYRATE 25 MG in EMPTY BAG 1 BAG IV ONE (07:00)
[2020-09-28] MEDS ORDERED: LACTATED RINGERS 1,000 ML IV ONE (07:00)
[2020-09-28] MEDS ORDERED: CHLORHEXIDINE GLUCONATE 15 ML CUP MUCOUS MEM ONE (07:00)
[2020-09-28] MEDS ORDERED: fentaNYL (PF) 50 MCG/ML 50 ML VIAL ONE (07:26)
[2020-09-28] MEDS ORDERED: TRANEXAMIC ACID 1,000 MG/10 ML VIAL ONE (07:26)
[2020-09-28] MEDS ORDERED: ceFAZolin 1,000 MG VIAL ONE (07:26)
[2020-09-28] MEDS ORDERED: MIDAZOLAM 2 MG/2 ML VIAL ONE (07:26)
[2020-09-28] MEDS ORDERED: HEPARIN SODIUM,PORCINE 10,000 UNIT/ML 1 ML VIAL ONE (07:26)
[2020-09-28] MEDS ORDERED: ePHEDrine SULFATE/0.9% NACL/PF 50 MG/5 ML SYRINGE IV ONE (07:26)
[2020-09-28] MEDS ORDERED: SODIUM CHLORIDE 0.9% 100 ML BAG ONE (07:26)
[2020-09-28] MEDS ORDERED: ELECTROLYTE-R (PH 7.4) 1,000 ML IV.SOLN IV ONE (07:26)
[2020-09-28] MEDS ORDERED: VECURONIUM 10 MG VIAL IV ONE (07:26)
[2020-09-28] MEDS ORDERED: NITROGLYCERIN-D5W PMX 50 MG/250 ML BOTTLE IV ONE (07:26)
[2020-09-28] MEDS ORDERED: MAGNESIUM SULFATE 4 MEQ/ML 10ML VIAL ONE (07:26)
[2020-09-28] MEDS ORDERED: PROPOFOL 10 MG/ML 20 ML VIAL IV ONE (07:26)
[2020-09-28] MEDS ORDERED: SODIUM CHLORIDE 0.9% IRRIG 1,000 ML BTL IRRIGATION ONE (07:26)
[2020-09-28] MEDS ORDERED: SODIUM CHLORIDE 0.9% 250 ML BAG ONE (07:26)
[2020-09-28 08:19] LABS: ABG Base Excess 4.6 mmol/L; ABG Glucose Whole Blood 215 mg/dL (75-99); ABG HCO3 30 mmol/L (21-25); ABG Hematocrit 41 % (34.0-46.0); ABG Ionized Calcium 4.6 mg/dL (4.5-5.3); ABG Lactic Acid Whole Blood 1.4 mmol/L (0.5-1.6); ABG PCO2 47 mmHg (35-45); ABG PH 7.42 (7.35-7.45); ABG Potassium Whole Blood 4.1 mmol/L (3.4-4.5); ABG Sodium Whole Blood 139 mmol/L (135-146); ABG TCO2 31 mmol/L (19-24)
--- NOTE | 2020-09-28 08:43 | P.ANPRN ---
Procedure Note - Anesthesia - Invasive Line Right Arterial Line Time Out Performed: Yes Date of Procedure: 09/28/20 Time of Procedure: 07:20 Location of Patient: Phase I Preparation: Sterile Prep, Sterile Dressing Arterial Line Location: Radial Ultrasound Used: No Purpose - Visualization and Identification of Vasculature: No Needle Guage: 20 Image Stored and Saved: Yes Narrative: Right radial arterial line placed by CHARGING PLUG PLACER Right Central Line Time Out Performed: Yes Date of Procedure: 09/28/20 Time of Procedure: 07:30 Location of Patient: Phase I Preparation: Sterile Prep, Sterile Dressing Ultrasound Used: Yes Purpose - Visualization and Identification of Vasculature: Yes Needle Guage: 18 Image Stored and Saved: Yes Narrative: Central line placement per sterile protocol utilized. Right Salem Karl Date of Procedure: 09/28/20 Location of Patient: Phase I Preparation: Sterile Prep, Sterile Dressing Ultrasound Used: No Narrative: R IJ Salem advanced to PA waveform. Secured @ 43 cm
[2020-09-28] MEDS ORDERED: SODIUM CHLORIDE 0.9% 500 ML 500 ML with HEPARIN SODIUM,PORCINE 5,000 UNIT IV ONE ×2 (09:31)
[2020-09-28] MEDS ORDERED: ceFAZolin 1,000 MG in SODIUM CHLORIDE 0.9% 1,000 ML IRRIGATION ONE (09:32)
[2020-09-28 10:11] LABS: ABG Base Excess 4.1 mmol/L; ABG Glucose Whole Blood 202 mg/dL (75-99); ABG HCO3 29 mmol/L (21-25); ABG Hematocrit 39 % (34.0-46.0); ABG Ionized Calcium 4.5 mg/dL (4.5-5.3); ABG PCO2 42 mmHg (35-45); ABG PH 7.45 (7.35-7.45); ABG PO2 262 mmHg (83-108); ABG Sodium Whole Blood 139 mmol/L (135-146); ABG TCO2 30 mmol/L (19-24)
[2020-09-28 10:48] LABS: ABG Base Excess 2.1 mmol/L; ABG Glucose Whole Blood 167 mg/dL (75-99); ABG HCO3 27 mmol/L (21-25); ABG Hematocrit 32 % (34.0-46.0); ABG Ionized Calcium 4.4 mg/dL (4.5-5.3); ABG PCO2 45 mmHg (35-45); ABG PO2 299 mmHg (83-108); ABG Potassium Whole Blood 3.8 mmol/L (3.4-4.5); ABG Sodium Whole Blood 136 mmol/L (135-146); ABG TCO2 29 mmol/L (19-24)
[2020-09-28 11:20] LABS: ABG Base Excess 3.2 mmol/L; ABG Glucose Whole Blood 183 mg/dL (75-99); ABG HCO3 29 mmol/L (21-25); ABG Hematocrit 32 % (34.0-46.0); ABG Ionized Calcium 4.4 mg/dL (4.5-5.3); ABG PCO2 47 mmHg (35-45); ABG PO2 329 mmHg (83-108); ABG Potassium Whole Blood 4.1 mmol/L (3.4-4.5); ABG Sodium Whole Blood 137 mmol/L (135-146); ABG TCO2 30 mmol/L (19-24)
[2020-09-28 11:51] LABS: ABG Base Excess 2.1 mmol/L; ABG Glucose Whole Blood 184 mg/dL (75-99); ABG HCO3 27 mmol/L (21-25); ABG Hematocrit 32 % (34.0-46.0); ABG Ionized Calcium 4.4 mg/dL (4.5-5.3); ABG PCO2 45 mmHg (35-45); ABG PO2 315 mmHg (83-108); ABG Potassium Whole Blood 4.2 mmol/L (3.4-4.5); ABG Sodium Whole Blood 137 mmol/L (135-146); ABG TCO2 29 mmol/L (19-24)
[2020-09-28 12:57] LABS: ABG Base Excess 2.8 mmol/L; ABG Glucose Whole Blood 226 mg/dL (75-99); ABG HCO3 28 mmol/L (21-25); ABG Hematocrit 35 % (34.0-46.0); ABG Ionized Calcium 4.5 mg/dL (4.5-5.3); ABG Lactic Acid Whole Blood 1.7 mmol/L (0.5-1.6); ABG PCO2 46 mmHg (35-45); ABG Potassium Whole Blood 4.1 mmol/L (3.4-4.5); ABG Sodium Whole Blood 138 mmol/L (135-146); ABG TCO2 30 mmol/L (19-24)
[2020-09-28 13:03] LABS: ABG PO2 >420 mmHg (83-108)
[2020-09-28 13:04] LABS: ABG Lactic Acid Whole Blood 2.6 mmol/L (0.5-1.6)
[2020-09-28 13:04] LABS: ABG Lactic Acid Whole Blood 2.2 mmol/L (0.5-1.6)
[2020-09-28 13:06] LABS: ABG PO2 >420 mmHg (83-108)
[2020-09-28 13:06] LABS: ABG Lactic Acid Whole Blood 2.2 mmol/L (0.5-1.6)
--- NOTE | 2020-09-28 13:11 | P.ANPRN ---
Procedure Note - Anesthesia - EVELYN Intraop Pre Bypass EVELYN Intraop - Anesthesia Indication: Aortic stenosis Date of Procedure: 09/28/20 Pre-operative Diagnosis: Post-operative Diagnosis: Same Surgeon: Devin Anthony Left Ventricle: EF 25%, global severe hypokinesis. LVH to 1.6 cm Ejection Fraction: Other Regional Wall Motion Abnormalities: Other Left Ventricle Hypertrophy: Yes R. Ventricle Function: Hypokinesis Mild Aortic Valve: Severe Peak 41, mean 30 mmHg, HEBERT 0.7 cm2 Anatomy: Trileaflet Aortic Stenosis: Severe Aortic Regurgitation: None Mitral Stenosis: None Mitral Regurgitation: Trace Tricuspid Stenosis: None Tricuspid Regurgitation: None Pulmonic Stenosis: None Pulmonic Regurgitation: None R. Atrial Dilation: No R. Atrial PFO: No L. Atrial Dilation: No Aortic Dissection: No Aortic Calcification: Moderate Plural Effusion: None - EVELYN Intraop Post Bypass EVELYN Intraop Post Bypass Procedure Performed: AVR + CABG Left Ventricle: EF 35%; Paced Ejection Fraction: Other Regional Wall Motion Abnormalities: Other R. Ventricle Function: Hypokinesis Mild Aortic Valve: 25 mm bioposthetic valve. Peak 13 mmHg Mean 7 mm Hg Mitral Valve: Unchanged Tricuspid: Mild TR Pulmonic: Unchanged Aortic Dissection: No
[2020-09-28] MEDS ORDERED: NITROGLYCERIN-D5W PMX 50 MG in DEXTROSE/WATER 1 250ML.BAG IV SCH (13:41)
[2020-09-28] MEDS ORDERED: Phosphorus Replacement Protoco 1 EACH MISC MISCELLANE PRN (13:41)
[2020-09-28] MEDS ORDERED: CALCIUM GLUCONATE 2 GM in SODIUM CHLORIDE 0.9% 100 ML IVPB PRN (13:41)
[2020-09-28] MEDS ORDERED: Magnesium Replacement Protocol 1 EACH MISC MISCELLANE PRN (13:41)
[2020-09-28] MEDS ORDERED: IPRATROPIUM-ALBUTEROL 3 ML NEB INHALATION PRN (13:41)
[2020-09-28] MEDS ORDERED: hydrALAZINE HCL 20 MG/ML 1 ML VIAL IVP PRN (13:41)
[2020-09-28] MEDS ORDERED: BENZOCAINE/MENTHOL LOZENG 1 EACH LOZENGE MUCOUS MEM PRN (13:41)
[2020-09-28] MEDS ORDERED: Potassium Replacement Protocol 1 EACH MISC MISCELLANE PRN (13:41)
[2020-09-28] MEDS ORDERED: AMIODARONE 450 MG in DEXTROSE 5% IN WATER 250 ML IV PRN ×2 (13:41)
[2020-09-28] MEDS ORDERED: AMIODARONE 360 MG in DEXTROSE 5% IN WATER 200 ML IV PRN ×2 (13:41)
[2020-09-28] MEDS ORDERED: ALBUMIN HUMAN 5% 250 ML in EMPTY BAG 1 BAG IVPB PRN (13:41)
[2020-09-28] MEDS ORDERED: DEXTROSE 5% IN WATER 100 ML with AMIODARONE 150 MG IV PRN (13:41)
--- NOTE | 2020-09-28 13:41 | P.OP ---
Date of Procedure: 09/28/20 Preoperative Diagnosis: Aortic valve stenosis, coronary artery disease Postoperative Diagnosis: Same Procedure(s) Performed: Aortic valve replacement with a 25 mm Inspriris bovine pericardial valve prosthesis, CABG 1 with LIU to LAD, epi-aortic ultrasonography, ligation of the left atrial appendage with a 35 mm AtriCure clip Implants: 25 mm bovine pericardial valve, 35 mm AtriCure clip Anesthesia: GETA Surgeon: Devin Anthony Beater Worker Helper #1: Kali Dill Estimated Blood Loss (ml): 200 Pathology: other (Aortic valve) Condition: stable Disposition: ICU Indications for Procedure: 60-year-old male with severe aortic valvular stenosis and diminished left ventricular systolic function, significant LVH with diastolic dysfunction, calcific coronary artery disease in the proximal left anterior descending coronary artery. He was evaluated for Tsering but given his young age felt to be most appropriately managed with surgical aortic valve replacement. Proximal LAD was discussed at length with cardiology and it was decided to palpate the left anterior descending in the operating room and if it was severely calcified go- ahead bypass it despite borderline severity of the stenosis. Operative Findings: Left ventricle was markedly dilated with decreased left ventricular ejection fraction this improved somewhat after valve replacement. Proximal third of the left anterior descending coronary artery was heavily calcific point. On opening the artery in attempting to pass a 1.5 mm probe proximally, it did meet with significant resistance. The aortic ultrasonography revealed calcification in the arch of the aorta as well as in the root of the aorta. Ascending aorta itself was relatively free of calcification however there was significant thickening of the ascending aorta particularly posteriorly with increased echo signals. The aortic valve was heavily calcified and tricuspid. The aortic annulus was also heavily calcified. Once debrided away a 25 mm sizer fit snugly. Following valve replacement there was somewhat improved left ventricular function on echocardiography and there was no evidence of aortic insufficiency. Description of Procedure: The patient was brought to the operating room, placed supine on the operating table. Invasive lines of been placed in the preop holding area. General anesthesia was induced and the patient was intubated. Avitia catheter was placed. The anterior torso and lower extremities were sterilely prepped and draped in standard fashion. After timeout and placement of a right femoral arterial line midline sternotomy was performed. Standard sternal retractor was placed and the pericardium was opened in the midline. The LAD was exposed and palpated with findings as noted above. Was decided to proceed with LIU to the LAD and the Rultract retractor was placed at the side of the bed. Left hemisternum was elevated and the left internal mammary artery harvested on a vascularized pedicle left intact on its origin from the subclavian and divided distally. Was an excellent conduit. The left pleural space was drained with 32-Surinamese chest tube. Standard sternal retractor was placed. Pericardial sutures were used for exposure of the heart. Epi-aortic ultrasonography was performed with findings as noted above. The patient was systemically heparinized. Patient was cannulated for cardiopulmonary bypass with a 7 mm soft flow cannula in the distal ascending aorta and a two-stage venous cannula through the right atrium into the inferior vena cava. Antegrade and retrograde cardioplegia was replaced in standard fashion. Pursestring suture was placed in the right superior pulmonary vein for left atrial venting. Patient was placed on cardioplegia bypass and stabilized. 35mm AtriCure clip was placed at the base of the left atrial appendage. The aorta was crossclamped and the heart arrested with cold crystalloid antegrade cardioplegia followed by retrograde cardioplegia. Left atrial vent was placed. The end of the LIU was appropriately prepared and the LIU to the LAD anastomosis proceeded. The LAD was opened distal to the calcification in a 1.5 mm probe was passed proximally and ran into obstruction. There was no obstruction to the probe distally. LIU to LAD anastomosis was performed in running fashion with 8-0 Prolene suture. On completion of the anastomosis suture was tied with good result and hemostasis. Next the aorta was opened transversely and the aortic valve was exposed. It was a heavily calcified tricuspid valve. The valve was excised and the annulus decalcified carefully. Copious irrigation was performed in order to avert any loose material. The valve was sized and a 25 mm sizer fit snugly. Circumferential valve sutures were placed with pledgets on the ventricular side to allow a supra-annular implantation. Begin placed the 25 mm valve and it fit. The 25 mm Oh Inspiris brought up on the field. Sutures were placed throu gh the sewing ring the valve and the valve was seated without difficulty. Sutures were tied and cut and the valve was noted to have seated well. We again irrigated and then closed the aorta with a standard 2 layer closure of running 4-0 Prolene suture. This was reinforced with some CoSeal. Patient was placed in steep Trendelenburg and the left atrial vent was removed. The aortic vent was placed on full and the cross-clamp was removed. Bulldog clamp was removed from the LIU to the LAD. Good hemostasis was noted. Patient did return to sinus bradycardic rhythm. Atrial and ventricular pacing wires were placed. Patient was gradually decannulated in standard fashion down to the aortic and venous line. EVELYN was used to gauge de-airing of the heart which was excellent. Patient was loaded with a half dose of Primacor and weaned from cardiopulmonary bypass on Primacor and Levophed. Over the next short time the LIU fed was weaned off. She from bypass easily. She was then decannulated from the aortic and venous lines in standard fashion. The 2 aortic cannulation sites were reinforced with 40 pledgeted Prolene sutures. Heparin was reversed with protamine. Good hemostasis was noted throughout. Chest was irrigated with antibiotic solution and the mediastinum drained with a 36-Surinamese chest tube. After assuring good hemostasis sternum was closed with 8 sternal wires. Fascia was closed with 0 Ethibond subcutaneous and subcuticular layers with layers of Vicryl suture. Patient was transferred to ICU in stable condition.
[2020-09-28 13:55] LABS: Glucose,Whole Blood 203 mg/dL (75-99)
[2020-09-28 14:22] LABS: Ionized Calcium 4.9 mg/dL (4.5-5.3)
[2020-09-28] MEDS: LACTATED RINGERS 1,000 ML IV SCH (14:25)
--- NOTE | 2020-09-28 14:27 | XR ---
EXAMINATION TYPE: XR chest 1V portable DATE OF EXAM: 09/28/2020 COMPARISON: 09/28/2020 HISTORY: Postop cardiac TECHNIQUE: Single frontal view of the chest is obtained. FINDINGS: ET and NG tube noted. There is a cardiac central line and left-sided chest tube. Bilateral perihilar subsegmental consolidation. A small left pleural effusion. Heart size normal. Arthropathy of the shoulders. IMPRESSION: Bilateral subsegmental perihilar atelectasis or infiltrate with small effusion.
[2020-09-28 14:28] LABS: Basophils # (A) 0.1 k/uL (0-0.2); Basophils % (A) 0 %; Eosinophils # (A) 0.1 k/uL (0-0.7); Eosinophils % (A) 1 %; Lymphocytes # (A) 1.4 k/uL (1.0-4.8); Lymphocytes % (A) 9 %; MCH 29.3 pg (25.0-35.0); MCHC 32.6 g/dL (31.0-37.0); MCV 90.1 fL (80.0-100.0); Mean Platelet Volume 8.1; Monocytes # (A) 0.9 k/uL (0-1.0); Monocytes % (A) 6 %; Neutrophils # (A) 12.3 k/uL (1.3-7.7); Neutrophils % (A) 82 %; Platelet Count 152 k/uL (150-450); RDW 13.5 % (11.5-15.5); WBC 14.9 k/uL (3.8-10.6)
[2020-09-28 14:29] LABS: ABG Base Excess 3.6 mmol/L; ABG HCO3 30 mmol/L (21-25); ABG Oxygen Saturation 99.6 % (94-97); ABG PCO2 57 mmHg (35-45); ABG PH 7.33 (7.35-7.45); ABG PO2 294 mmHg (83-108); ABG TCO2 31 mmol/L (19-24); Allen Test Performed? Yes
[2020-09-28] MEDS ORDERED: DEXMEDETOMIDINE/0.9% NACL(PMX) 400 MCG in EMPTY BAG 1 BAG IV SCH (14:30)
[2020-09-28 14:31] LABS: INR 1.1 (<1.2); Partial Thromboplastin Time 24.5 sec (22.0-30.0); Prothrombin Time 11.6 sec (9.0-12.0)
[2020-09-28 14:32] LABS: ALT 34 U/L (4-49); AST 44 U/L (17-59); African American GFR (CKD) >90 (>60 ml/min/1.73 sqM); Albumin 2.8 g/dL (3.5-5.0); Alkaline Phosphatase 50 U/L (38-126); Anion Gap 2 mmol/L; Blood Urea Nitrogen 13 mg/dL (9-20); Calcium 8.5 mg/dL (8.4-10.2); Carbon Dioxide 30 mmol/L (22-30); Chloride 104 mmol/L (98-107); Glucose 200 mg/dL (74-99); Magnesium 3.1 mg/dL (1.6-2.3); Non-African American GFR(CKD) >90 (>60 ml/min/1.73 sqM); Potassium 4.2 mmol/L (3.5-5.1); Sodium 136 mmol/L (137-145); Total Bilirubin 0.5 mg/dL (0.2-1.3); Total Protein 4.9 g/dL (6.3-8.2)
[2020-09-28 14:43] LABS: HGB 11.7 gm/dL (13.0-17.5)
[2020-09-28 14:59] LABS: Glucose,Whole Blood 198 mg/dL (75-99)
[2020-09-28] MEDS: INSULIN REGULAR 100 UNIT in SODIUM CHLORIDE 0.9% 100 ML IV SCH (15:00)
[2020-09-28] MEDS: ceFAZolin 3 GM in SODIUM CHLORIDE 0.9% 100 ML IVPB SCH (15:00)
[2020-09-28] MEDS ORDERED: MILRINONE-D5W PMX 20 MG in DEXTROSE/WATER 1 100ML.BAG IV SCH (15:00)
[2020-09-28] MEDS ORDERED: IPRATROPIUM-ALBUTEROL 3 ML NEB INHALATION SCH (16:00)
[2020-09-28 16:19] LABS: Glucose,Whole Blood 199 mg/dL (75-99)
[2020-09-28] MEDS: CLEVIDIPINE BUTYRATE 25 MG in EMPTY BAG 1 BAG IV SCH ×2 (16:21→20:05)
--- NOTE | 2020-09-28 16:44 | P.CNPUL ---
History of Present Illness Consult date: 09/28/20 Requesting physician: Devin Anthony Reason for consult: other Chief complaint: Aortic valve stenosis, coronary artery disease History of present illness: This is a 60-year-old white male patient with medical history of severe aortic stenosis, hypertension, hyperlipidemia, diabetes poultice type II, COPD, previous history of myocardial infarction, SVT status post cardiac ablation, carotid stenosis status post right carotid endarterectomy and history of COVID 19 infection in April 2020. Patient has been experiencing increased exertional dyspnea, and overall decreased functional performance even before COVID-19. Patient had a cardiac catheterization in July 2020 showing significant disease in the small nondominant RCA, patent stent to the LAD, and moderately severely impaired left ventricular systolic function. Transesophageal echocardiogram showed ejection fraction of 40-45%. The patient patient is an ex-smoker, his preop FEV1 was 40% of predicted or 1.5 L. Patient was referred to cardiothoracic surgery, and on 09/28/2020 he underwent aortic valve replacement with a 25 mm Inspra's bovine pericardial valve, and one vessel coronary artery bypass with LIU to the LAD, ligation of the left atrial appendage. Seen the patient in the intensive care unit following his surgery. He is currently self extubated, is currently on 100% nonrebreather mask. Hemodynamically he is stable, he is on lactated Ringer's at a rate of 50 ML per hour, and he is on Primacor is at 0.3 mics per kilo per minute, he is in sinus mechanism with a rate of 102 BPM, his PA pressures 53/31, his last cardiac output was 8.0 with a cardiac index of 3.4, he has a mediastinal and left pleural chest tube connected together, with small amount of serosanguineous output in the Pleur-evac, no evidence of air leak, chest x-ray has been reviewed, showing bilateral subsegmental perihilar atelectasis with small effusion. Postop blood gases showed pO2 of 294, pCO2 57, and pH of 7.33 this was done and FiO2 of 100%, the operative blood work shows a white blood cell count of 14.9, hemoglobin of 11.7, INR of 1.1, sodium of 136, dressing electrolytes were within normal limits, BUN 13 creatinine 0.58 Review of Systems All systems: negative Constitutional: Denies chills, Denies fever Eyes: denies blurred vision, denies pain Ears, nose, mouth and throat: Denies headache, Denies sore throat Cardiovascular: Reports decreased exercise tolerance, Reports dyspnea on exertion, Denies chest pain, Denies shortness of breath Respiratory: Denies cough Gastrointestinal: Denies abdominal pain, Denies diarrhea, Denies nausea, Denies vomiting Musculoskeletal: Denies myalgias Integumentary: Denies pruritus, Denies rash Neurological: Denies numbness, Denies weakness Psychiatric: Denies anxiety, Denies depression Endocrine: Denies fatigue, Denies weight change Past Medical History Past Medical History: Coronary Artery Disease (CAD), COPD, Diabetes Mellitus, Hyperlipidemia, Hypertension, Myocardial Infarction (MT), Osteoarthritis (OA), Pneumonia, Supraventricular Tachycardia (SVT) Additional Past Medical History / Comment(s): Acute hypoxic respiratory failure/covid in 2020, poss. pneumonia, NIDDM type II but not on medication anymore, arthritis bilateral hands, umbilical hernia, SOB w/exertion, supposed to have sleep study in future Last Myocardial Infarction Date:: 12-23-16 History of Any Multi-Drug Resistant Organisms: None Reported Past Surgical History: Appendectomy, Cardiac Ablation, Heart Catheterization With Stent, Orthopedic Surgery Additional Past Surgical History / Comment(s): Cardiac ablation for SVT, R carotid endarterectomy, bilateral carpal tunnel releases, colonoscopies/benign polyps. Past Anesthesia/Blood Transfusion Reactions: No Reported Reaction Additional Past Anesthesia/Blood Transfusion Reaction / Comment(s): Pt has claustrophobia. no hx. blood transfusion Date of Last Stent Placement:: 2018 Smoking Status: Former smoker - Past Family History Father Brother(s) Family Medical History: Cancer Additional Family Medical History / Comment(s): Father from colon cancer at the age of 63 yrs. Brother had colon cancer with surgical removal. Mother Family Medical History: Coronary Artery Disease (CAD), Diabetes Mellitus, Myocardial Infarction (MT) Additional Family Medical History / Comment(s): Mother of a MT at the age of 79yrs. She had an AICD/pacer. Medications and Allergies Home Medications Medication Instructions Recorded Confirmed Type Aspirin 81 mg PO DAILY #30 chew 12/26/16 09/28/20 Rx Nitroglycerin Sl Tabs [Nitrostat] 0.4 mg SUBLINGUAL Q5M PRN #25 tab 10/23/17 07/26/21 Rx Ibuprofen [Motrin Ib] 400 - 600 mg PO Q6H PRN 09/08/18 09/28/20 History lisinopriL [Zestril] 10 mg PO BID 09/08/18 09/28/20 History carvediloL [Coreg*] 12.5 mg PO BID-W/MEALS #60 tab 05/04/19 09/28/20 Rx Albuterol Inhaler [Ventolin Hfa 2 puff INHALATION RT-QID PRN 04/29/20 09/28/20 History Inhaler] Atorvastatin [Lipitor] 80 mg PO HS 04/29/20 09/28/20 History hydroCHLOROthiazide [Hydrodiuril] 25 mg PO DAILY 04/29/20 09/28/20 History Acetaminophen Tab [Tylenol] 650 mg PO Q6HR PRN tab 05/01/20 09/28/20 Rx Ascorbic Acid [Vitamin C] 1,000 mg PO DAILY 30 Days #60 tab 05/01/20 09/28/20 Rx Zinc 50 mg PO DAILY 07/06/20 09/28/20 History Clopidogrel [Plavix] 75 mg PO HS 07/08/20 09/28/20 History Budesonide-Formot 160-4.5 Mcg 2 puff INHALATION BID 09/24/20 09/28/20 History [Symbicort 160-4.5 Mcg Inhaler] Montelukast [Singulair] 10 mg PO HS 09/24/20 09/28/20 History Potassium Gluconate 99 mg PO DAILY 09/24/20 09/28/20 History Spironolactone 25 mg PO DAILY 09/24/20 09/28/20 History Allergies Allergy/AdvReac Type Severity Reaction Status Date / Time No Known Allergies Allergy Verified 09/28/20 05:45 Physical Exam Vitals: Vital Signs Temp Pulse Resp BP BP Pulse Ox 09/28/20 05:57 168/83 09/28/20 05:55 98.8 F 100 18 168/89 95 Intake and Output 09/28/20 09/28/20 09/28/20 06:59 14:59 22:59 Intake Total 100 6 Output Total 1325 Balance 100 -1319 Intake: IV 100 6 Output: Urine 525 Estimated Blood Loss 800 Other: Weight 125 kg GENERAL EXAM: Lethargic, 60-year-old obese white male, who has just self extubated, he is currently on her percent nonrebreather, breathing sp ontaneously, in no acute distress, scomfortable in no apparent distress. HEAD: Normocephalic/atraumatic. EYES: Normal reaction of pupils, equal size. Conjunctiva pink, sclera white. NOSE: Clear with pink turbinates. THROAT: No erythema or exudates. NECK: No masses, no JVD, no thyroid enlargement, no adenopathy. CHEST: No chest wall deformity. Symmetrical expansion. Midsternal incision is clean dry and intact, chest tube sites including mediastinal and left pleural chest tube are clean dry and intact, connected to Pleur-evac with small amount of sanguinous output in the Pleur-evac, no evidence of air leak, connected to wall suction LUNGS: Equal air entry with no crackles, wheeze, rhonchi or dullness. CVS: Regular rate and rhythm, normal S1 and S2, no gallops, no murmurs, no rubs ABDOMEN: Soft, nontender. No hepatosplenomegaly, normal bowel sounds, no guarding or rigidity. EXTREMITIES: No clubbing, no edema, no cyanosis, 2+ pulses and upper and lower extremities. MUSCULOSKELETAL: Muscle strength and tone normal. SPINE: No scoliosis or deformity SKIN: No rashes CENTRAL NERVOUS SYSTEM: Lethargic. focal deficits, tone is normal in all 4 extremities. Results - Laboratory Findings CBC and BMP: 09/28/20 13:50 09/28/20 13:50 ABG ABG pH 7.33 (7.35-7.45) L 09/28/20 14:07 ABG pCO2 57 mmHg (35-45) H 09/28/20 14:07 ABG pO2 294 mmHg (83-108) H 09/28/20 14:07 ABG O2 Saturation 99.6 % (94-97) H 09/28/20 14:07 PT/INR, D-dimer PT 11.6 sec (9.0-12.0) 09/28/20 13:50 INR 1.1 (<1.2) 09/28/20 13:50 Abnormal lab findings: Abnormal Labs 09/24/20 09/28/20 09/28/20 09:00 06:05 08:22 WBC RBC Hgb Hct Neutrophils # ABG pH ABG pCO2 47 H ABG pO2 >420 H ABG HCO3 30 H ABG Total CO2 31 H ABG O2 Saturation 100.0 H ABG Hematocrit ABG Ionized Calcium ABG Glucose 215 H ABG Lactic Acid Hemoglobin Sodium Creatinine Glucose POC Glucose (mg/dL) 225 H Magnesium Total Protein Albumin Arterial Blood Glucose 215 H Crossmatch See Detail 09/28/20 09/28/20 09/28/20 10:14 10:51 11:23 WBC RBC Hgb Hct Neutrophils # ABG pH ABG pCO2 47 H ABG pO2 262 H 299 H 329 H ABG HCO3 29 H 27 H 29 H ABG Total CO2 30 H 29 H 30 H ABG O2 Saturation 100.0 H 100.0 H 100.0 H ABG Hematocrit 32 L 32 L ABG Ionized Calcium 4.4 L 4.4 L ABG Glucose 202 H 167 H 183 H ABG Lactic Acid 2.6 H* 2.2 H* 2.0 H Hemoglobin 12.6 L 10.4 L 10.5 L Sodium Creatinine Glucose POC Glucose (mg/dL) Magnesium Total Protein Albumin Arterial Blood Glucose 202 H 167 H 183 H Crossmatch 09/28/20 09/28/20 09/28/20 11:54 13:00 13:50 WBC 14.9 H RBC 4.00 L Hgb 11.7 L D Hct 36.0 L Neutrophils # 12.3 H ABG pH ABG pCO2 46 H ABG pO2 315 H >420 H ABG HCO3 27 H 28 H ABG Total CO2 29 H 30 H ABG O2 Saturation 100.0 H 100.0 H ABG Hematocrit 32 L ABG Ionized Calcium 4.4 L ABG Glucose 184 H 226 H ABG Lactic Acid 2.2 H* 1.7 H Hemoglobin 10.4 L 11.5 L Sodium Creatinine Glucose POC Glucose (mg/dL) Magnesium Total Protein Albumin Arterial Blood Glucose 184 H 226 H Crossmatch 09/28/20 09/28/20 09/28/20 13:50 13:52 14:07 WBC RBC Hgb Hct Neutrophils # ABG pH 7.33 L ABG pCO2 57 H ABG pO2 294 H ABG HCO3 30 H ABG Total CO2 31 H ABG O2 Saturation 99.6 H ABG Hematocrit ABG Ionized Calcium ABG Glucose ABG Lactic Acid Hemoglobin Sodium 136 L Creatinine 0.58 L Glucose 200 H POC Glucose (mg/dL) 203 H Magnesium 3.1 H Total Protein 4.9 L Albumin 2.8 L Arterial Blood Glucose Crossmatch 09/28/20 14:57 WBC RBC Hgb Hct Neutrophils # ABG pH ABG pCO2 ABG pO2 ABG HCO3 ABG Total CO2 ABG O2 Saturation ABG Hematocrit ABG Ionized Calcium ABG Glucose ABG Lactic Acid Hemoglobin Sodium Creatinine Glucose POC Glucose (mg/dL) 198 H Magnesium Total Protein Albumin Arterial Blood Glucose Crossmatch - Diagnostic Findings Chest x-ray: report reviewed, image reviewed Assessment and Plan Plan: Assessment: #1. Severe aortic valve stenosis, and coronary artery disease status post aortic valve replacement with a 25 mm bovine pericardial valve, and CABG 1 with LIU to the LAD, and ligation of the left atrial appendage, postoperative day #0 #2. Routine mechanical ventilator management, however patient self extubated and is currently in the 100% nonrebreather. Still lethargic but breathing comfortably #3. Coronary artery disease, with previous history of stenting #4. COPD, with preop FEV1 of 40% #5. Morbid obesity #6. Hypertension #7. Diabetes mellitus type 2 #8. Former smoker #9. Hyperlipidemia #10. History of CVA #11. Carotid artery stenosis, status post right carotid endarterectomy #12. History of COVID 19 infection in April 2020 Plan: Patient was placed on a nonrebreather mask following self extubation Breathing comfortably, maintaining saturations above 92% Maintain aspiration precautions, Continue monitoring Hemodynamically patient is stable No significant bleeding out of the chest tube sites Continue nebulized bronchodilators Incentive spirometry to the bedside Wean FiO2 Follow-up labs and chest x-rays GI and DVT prophylaxis per CT surgery Continue to closely follow in intensive care unit I performed a history & physical examination of the patient and discussed their management with my nurse practitioner, Jennie Swift. I reviewed the nurse practitioner's note and agree with the documented findings and plan of care. Lung sounds are positive for dim breath sounds. The findings and the impression was discussed with the patient. I attest to the documentation by the nurse practitioner. Time with Patient: Greater than 30
[2020-09-28 17:03] LABS: Glucose,Whole Blood 201 mg/dL (75-99)
[2020-09-28] MEDS: ACETAMINOPHEN IV (For NPO) 1,000 MG in EMPTY BAG 1 BAG IVPB SCH ×2 (17:11→23:58)
[2020-09-28] MEDS: KETOROLAC 15 MG/ML 1 ML VIAL IVP SCH ×2 (17:17→23:57)
[2020-09-28 18:00] LABS: Glucose,Whole Blood 186 mg/dL (75-99)
[2020-09-28 18:00] LABS: Basophils % (A) 0 %; Eosinophils % (A) 0 %; HCT 40.3 % (39.0-53.0); HGB 13.3 gm/dL (13.0-17.5); Lymphocytes # (A) 1.4 k/uL (1.0-4.8); Lymphocytes % (A) 9 %; MCH 29.7 pg (25.0-35.0); MCV 89.9 fL (80.0-100.0); Mean Platelet Volume 8.1; Monocytes % (A) 7 %; Neutrophils # (A) 12.7 k/uL (1.3-7.7); Neutrophils % (A) 83 %; Platelet Count 161 k/uL (150-450); RBC 4.49 m/uL (4.30-5.90); WBC 15.4 k/uL (3.8-10.6)
[2020-09-28 19:01] LABS: Glucose,Whole Blood 234 mg/dL (75-99)
[2020-09-28] MEDS: HEPARIN SODIUM,PORCINE/PF 5,000 UNIT/0.5 ML SYRINGE SQ SCH ×2 (19:04→23:59)
[2020-09-28] MEDS: IPRATROPIUM-ALBUTEROL 3 ML NEB INHALATION SCH (19:06)
[2020-09-28] MEDS: SYMBICORT 160-4.5 MCG INHALER INHALATION SCH (19:06)
[2020-09-28 19:20] LABS: Basophils % (A) 0 %; Eosinophils % (A) 0 %; HCT 40.4 % (39.0-53.0); HGB 13.3 gm/dL (13.0-17.5); Lymphocytes # (A) 1.2 k/uL (1.0-4.8); Lymphocytes % (A) 8 %; MCH 29.6 pg (25.0-35.0); MCHC 32.9 g/dL (31.0-37.0); Monocytes % (A) 7 %; Neutrophils # (A) 12.4 k/uL (1.3-7.7); Neutrophils % (A) 84 %; Platelet Count 167 k/uL (150-450); RBC 4.48 m/uL (4.30-5.90); RDW 13.5 % (11.5-15.5); WBC 14.7 k/uL (3.8-10.6)
[2020-09-28] MEDS: METOCLOPRAMIDE 5 MG/ML 2 ML VIAL IVP PRN (19:37)
[2020-09-28] MEDS: ATORVASTATIN 80 MG TAB PO SCH (20:18)
[2020-09-28] MEDS: MONTELUKAST 10 MG TAB PO SCH (20:18)
[2020-09-28 20:26] LABS: Glucose,Whole Blood 197 mg/dL (75-99)
[2020-09-28] MEDS ORDERED: METOPROLOL TARTRATE 12.5 MG TAB PO SCH (21:00)
[2020-09-28] MEDS ORDERED: METOPROLOL TARTRATE 12.5 MG TAB PO STA (21:06)
[2020-09-28 21:21] LABS: Glucose,Whole Blood 181 mg/dL (75-99)
[2020-09-28] MEDS: MILRINONE-D5W PMX 20 MG in DEXTROSE/WATER 1 100ML.BAG IV SCH (21:24)
[2020-09-28 22:06] LABS: Glucose,Whole Blood 174 mg/dL (75-99)
[2020-09-28 23:04] LABS: Glucose,Whole Blood 153 mg/dL (75-99)
[2020-09-29 00:08] LABS: Glucose,Whole Blood 161 mg/dL (75-99)
[2020-09-29] MEDS: INSULIN REGULAR 100 UNIT in SODIUM CHLORIDE 0.9% 100 ML IV SCH ×3 (00:17→21:50)
[2020-09-29] MEDS: ceFAZolin 3 GM in SODIUM CHLORIDE 0.9% 100 ML IVPB SCH ×2 (00:25→09:41)
[2020-09-29] MEDS: CLEVIDIPINE BUTYRATE 25 MG in EMPTY BAG 1 BAG IV SCH ×2 (00:53→06:38)
[2020-09-29 01:12] LABS: Glucose,Whole Blood 137 mg/dL (75-99)
[2020-09-29] MEDS ORDERED: HYDROcodone/APAP 5-325MG 1 EACH TAB PO PRN (01:14)
[2020-09-29 02:04] LABS: Glucose,Whole Blood 151 mg/dL (75-99)
[2020-09-29 03:10] LABS: Glucose,Whole Blood 139 mg/dL (75-99)
[2020-09-29 04:11] LABS: Glucose,Whole Blood 139 mg/dL (75-99)
[2020-09-29] MEDS: HYDROcodone/APAP 5-325MG 1 EACH TAB PO PRN ×5 (04:14→21:18)
[2020-09-29 04:31] LABS: Basophils % (A) 0 %; Eosinophils % (A) 0 %; HCT 38.4 % (39.0-53.0); HGB 12.7 gm/dL (13.0-17.5); Lymphocytes # (A) 1.4 k/uL (1.0-4.8); Lymphocytes % (A) 8 %; MCH 29.7 pg (25.0-35.0); MCHC 33.1 g/dL (31.0-37.0); MCV 89.5 fL (80.0-100.0); Mean Platelet Volume 8.8; Monocytes # (A) 1.4 k/uL (0-1.0); Monocytes % (A) 8 %; Neutrophils # (A) 14.6 k/uL (1.3-7.7); Neutrophils % (A) 83 %; Platelet Count 156 k/uL (150-450); RBC 4.29 m/uL (4.30-5.90); WBC 17.6 k/uL (3.8-10.6)
[2020-09-29 04:46] LABS: Ionized Calcium 4.7 mg/dL (4.5-5.3)
[2020-09-29 04:55] LABS: ALT 33 U/L (4-49); AST 52 U/L (17-59); African American GFR (CKD) >90 (>60 ml/min/1.73 sqM); Albumin 3.3 g/dL (3.5-5.0); Alkaline Phosphatase 50 U/L (38-126); Anion Gap 5 mmol/L; Blood Urea Nitrogen 13 mg/dL (9-20); Calcium 8.4 mg/dL (8.4-10.2); Carbon Dioxide 29 mmol/L (22-30); Chloride 102 mmol/L (98-107); Glucose 133 mg/dL (74-99); Magnesium 2.2 mg/dL (1.6-2.3); Non-African American GFR(CKD) >90 (>60 ml/min/1.73 sqM); Potassium 4.3 mmol/L (3.5-5.1); Sodium 136 mmol/L (137-145); Total Bilirubin 0.5 mg/dL (0.2-1.3); Total Protein 5.4 g/dL (6.3-8.2)
[2020-09-29 05:12] LABS: Glucose,Whole Blood 124 mg/dL (75-99)
[2020-09-29 06:24] LABS: Glucose,Whole Blood 134 mg/dL (75-99)
[2020-09-29] MEDS: KETOROLAC 15 MG/ML 1 ML VIAL IVP SCH ×3 (06:31→18:07)
[2020-09-29 07:12] LABS: Glucose,Whole Blood 131 mg/dL (75-99)
[2020-09-29 08:19] LABS: Glucose,Whole Blood 118 mg/dL (75-99)
[2020-09-29] MEDS: HEPARIN SODIUM,PORCINE/PF 5,000 UNIT/0.5 ML SYRINGE SQ SCH ×2 (08:46→16:17)
[2020-09-29] MEDS: CLOPIDOGREL 75 MG TAB PO SCH (08:47)
[2020-09-29] MEDS: ASCORBIC ACID 500 MG TAB PO SCH (08:47)
[2020-09-29] MEDS: METOPROLOL TARTRATE 50 MG TAB PO SCH ×2 (08:47→21:17)
[2020-09-29] MEDS: ZINC SULFATE 220 MG CAP PO SCH (08:47)
[2020-09-29] MEDS: lisinopriL 5 MG TAB PO SCH ×2 (08:47→21:18)
[2020-09-29] MEDS: ASPIRIN 325 MG TAB PO SCH (08:47)
[2020-09-29] MEDS: SYMBICORT 160-4.5 MCG INHALER INHALATION SCH ×2 (09:00→19:42)
[2020-09-29] MEDS ORDERED: METOPROLOL TARTRATE 12.5 MG TAB PO SCH (09:00)
[2020-09-29] MEDS: IPRATROPIUM-ALBUTEROL 3 ML NEB INHALATION SCH ×4 (09:00→19:42)
[2020-09-29] MEDS ORDERED: MAGNESIUM HYDROXIDE 2,400 MG/10 ML CUP PO PRN (09:00)
[2020-09-29] MEDS ORDERED: METOPROLOL TARTRATE 25 MG TAB PO SCH (09:00)
[2020-09-29] MEDS ORDERED: bisacodyL 10 MG SUPP RECTAL PRN (09:00)
[2020-09-29] MEDS ORDERED: PANTOPRAZOLE 40 MG/10 ML VIAL IVP SCH (09:00)
[2020-09-29 09:33] LABS: Glucose,Whole Blood 125 mg/dL (75-99)
--- NOTE | 2020-09-29 09:37 | P.PN ---
Subjective Progress Note Date: 09/29/20 This is a 60-year-old white male patient with medical history of severe aortic stenosis, hypertension, hyperlipidemia, diabetes poultice type II, COPD, previous history of myocardial infarction, SVT status post cardiac ablation, carotid stenosis status post right carotid endarterectomy and history of COVID 19 infection in April 2020. Patient has been experiencing increased exertional dyspnea, and overall decreased functional performance even before COVID-19. Patient had a cardiac catheterization in July 2020 showing significant disease in the small nondominant RCA, patent stent to the LAD, and moderately severely impaired left ventricular systolic function. Transesophageal echocardiogram showed ejection fraction of 40-45%. The patient patient is an ex-smoker, his preop FEV1 was 40% of predicted or 1.5 L. Patient was referred to cardiothoracic surgery, and on 09/28/2020 he underwent aortic valve replacement with a 25 mm Inspra's bovine pericardial valve, and one vessel coronary artery bypass with LIU to the LAD, ligation of the left atrial appendage. Seen the patient in the intensive care unit following his surgery. He is currently self extubated, is currently on 100% nonrebreather mask. Hemodynamically he is stable, he is on lactated Ringer's at a rate of 50 ML per hour, and he is on Primacor is at 0.3 mics per kilo per minute, he is in sinus mechanism with a rate of 102 BPM, his PA pressures 53/31, his last cardiac output was 8.0 with a cardiac index of 3.4, he has a mediastinal and left pleural chest tube connected together, with small amount of serosanguineous output in the Pleur-evac, no evidence of air leak, chest x-ray has been reviewed, showing bilateral subsegmental perihilar atelectasis with small effusion. Postop blood gases showed pO2 of 294, pCO2 57, and pH of 7.33 this was done and FiO2 of 100%, the operative blood work shows a white blood cell count of 14.9, hemoglobin of 11.7, INR of 1.1, sodium of 136, dressing electrolytes were within normal limits, BUN 13 creatinine 0.58 On today's exam on 09/29/2020 patient is seen in the intensive care unit, he status post aortic valve replacement, and a single-vessel coronary artery bypass grafting. He is postoperative day #1. Patient self extubated yesterday shortly after arriving to the intensive care unit, however tolerated extubation quite well. This morning he is sitting up in the recliner, he is awake and alert, oriented 3, he is currently on 4 L of oxygen, breathing comfortably, his pulse ox is 92%. Hemodynamically she is stable, he is on small amount of milrinone at 0.3 mics per kilo per minute, clever [employer] infusion at 5 mg per hour, insulin is a 7.5 units per hour, and lactated Ringer's at a rate of 50 ML per hour, he is in sinus mechanism, his pacemaker is on VVI backup mode at a rate of 60. His PA pressure is 30/14, cardiac output is 6.9, cardiac index is 2.9. His left p leural chest tube and mediastinal chest tubes are connected together, and there has been a total of 600 mL of thin serosanguineous output since surgery yesterday. Today's chest x-ray has been reviewed, no evidence of pneumothorax, some bibasilar atelectasis, and tiny pleural effusions. he does work on incentive spirometer, he is achieving 1250 on it today. Lung sounds are clear, he has had no acute events overnight, urine output is tapering down, and is down to 10 ML per hour this morning. CT surgery is following, and we'll defer on the decision about fluids and diuretics to CT surgery, today's labs have been reviewed, white blood cell count of 17.6, hemoglobin is 12.7, INR from yesterda y's labs was 1.1, sodium is 136, the rest of electrolytes were within normal limits, BUN of 13 creatinine 0.65. Patient is tolerating oral intake, no nausea vomiting or diarrhea, he is on insulin infusion for blood sugar control, less sugar was 118. Objective - Vital Signs Vital signs: Vital Signs Temp 98.1 F 09/28/20 15:00 Pulse 94 09/29/20 09:17 Resp 16 09/29/20 09:17 BP 168/83 09/28/20 05:57 Pulse Ox 94 L 09/29/20 09:00 Intake & Output 09/28/20 09/29/20 09/29/20 18:59 06:59 18:59 Intake Total 522.510 3793.030 167.914 Output Total 1980 885 43 Balance -7125.724 7459.030 124.914 Weight 131.5 kg Intake: IV 132 1298.9 68.0 ACETAMINOPHEN IV (For NPO 100 ) 1,000 mg In Empty Bag 1 bag @ 400 mls/hr IVPB Q6HR [facility] Rx#:[id number] Lactated Ringers 550 50 Nitro 16.5 1.5 Primacor 84.4 7.5 cardiac output 90 340 ceFAZolin 3 gm In Sodium 100 Chloride 0.9% 100 ml @ 200 mls/hr IVPB Q8HR [facility] Rx#:[id number] pressure bag 36 108 9 Intake, IV Titration 319.745 273.130 99.914 Amount ACETAMINOPHEN IV (For NPO 100 ) 1,000 mg In Empty Bag 1 bag @ 400 mls/hr IVPB Q6HR [facility] Rx#:[id number] Clevidipine Butyrate 25 4.834 116.667 mg In Empty Bag 1 bag @ 1 MG/HR 2 mls/hr IV .Q24H [facility] Rx#:[id number] Insulin Regular 100 unit 15.723 106.463 16.539 In Sodium Chloride 0.9% 100 ml @ Per Protocol IV .Q0M [facility] Rx#:[id number] Lactated Ringers 1,000 ml 150 50 @ 20 mls/hr IV .Q24H [facility] Rx#:[id number] Milrinone-D5w Pmx 20 mg 83.375 In Dextrose/Water 1 100ml .bag @ 0.2 MCG/KG/MIN 7.5 mls/hr IV .H38B55P [facility] Rx#:[id number] Milrinone-D5w Pmx 20 mg 15.188 In Dextrose/Water 1 100ml .bag @ 0.3 MCG/KG/MIN 11. 25 mls/hr IV .Q8H54M [facility] Rx#:[id number] propofoL 1,000 mg In 34.0 Empty Bag 1 bag @ Titrate IV .Q0M [facility] Rx#: [id number] Oral 120 850 Output: Chest Tube Drainage 210 390 20 left pleural & 210 390 20 mediastinal Urine 970 495 23 Estimated Blood Loss 800 Other: Voiding Method Indwelling Catheter Indwelling Catheter ABP, PAP, CO, CI - Last Documented Arterial Blood Pressure 143/54 Pulmonary Artery Pressure 36/17 Cardiac Output 8.1 Cardiac Index 3.4 - Exam GENERAL EXAM: Awake and alert, oriented 3, very pleasant 60-year-old obese white male, recliner, on 4 L of oxygen and the pulse ox of 92% HEAD: Normocephalic/atraumatic. EYES: Normal reaction of pupils, equal size. Conjunctiva pink, sclera white. NOSE: Clear with pink turbinates. THROAT: No erythema or exudates. NECK: No masses, no JVD, no thyroid enlargement, no adenopathy. CHEST: No chest wall deformity. Symmetrical expansion. Midsternal incision is clean dry and intact, chest tube sites including mediastinal and left pleural chest tube are clean dry and intact, connected to Pleur-evac with small amount of sanguinous output in the Pleur-evac, no evidence of air leak, connected to wall suction LUNGS: Equal air entry with no crackles, wheeze, rhonchi or dullness. CVS: Regular rate and rhythm, normal S1 and S2, no gallops, no murmurs, no rubs ABDOMEN: Soft, nontender. No hepatosplenomegaly, normal bowel sounds, no guarding or rigidity. EXTREMITIES: No clubbing, no edema, no cyanosis, 2+ pulses and upper and lower extremities. MUSCULOSKELETAL: Muscle strength and tone normal. SPINE: No scoliosis or deformity SKIN: No rashes CENTRAL NERVOUS SYSTEM: Awake and alert, oriented 3. focal deficits, tone is normal in all 4 extremities. - Labs CBC & Chem 7: 09/29/20 04:08 09/29/20 04:08 Labs: Abnormal Lab Results - Last 24 Hours (Table) 09/24/20 09/28/20 09/28/20 Range/Units 09:00 08:22 10:14 WBC (3.8-10.6) k/uL RBC (4.30-5.90) m/uL Hgb (13.0-17.5) gm/dL Hct (39.0-53.0) % Neutrophils # (1.3-7.7) k/uL Monocytes # (0-1.0) k/uL ABG pH (7.35-7.45) ABG pCO2 47 H (35-45) mmHg ABG pO2 >420 H 262 H (83-108) mmHg ABG HCO3 30 H 29 H (21-25) mmol/L ABG Total CO2 31 H 30 H (19-24) mmol/L ABG O2 Saturation 100.0 H 100.0 H (94-97) % ABG Hematocrit (34.0-46.0) % ABG Ionized Calcium (4.5-5.3) mg/dL ABG Glucose 215 H 202 H (75-99) mg/dL ABG Lactic Acid 2.6 H* (0.5-1.6) mmol/L Hemoglobin 12.6 L (13.0-17.5) gm/dL Sodium (137-145) mmol/L Creatinine (0.66-1.25) mg/dL Glucose (74-99) mg/dL POC Glucose (mg/dL) (75-99) mg/dL Magnesium (1.6-2.3) mg/dL Total Protein (6.3-8.2) g/dL Albumin (3.5-5.0) g/dL Arterial Blood Glucose 215 H 202 H (75-99) mg/dL Crossmatch See Detail 09/28/20 09/28/20 09/28/20 Range/Units 10:51 11:23 11:54 WBC (3.8-10.6) k/uL RBC (4.30-5.90) m/uL Hgb (13.0-17.5) gm/dL Hct (39.0-53.0) % Neutrophils # (1.3-7.7) k/uL Monocytes # (0-1.0) k/uL ABG pH (7.35-7.45) ABG pCO2 47 H (35-45) mmHg ABG pO2 299 H 329 H 315 H (83-108) mmHg ABG HCO3 27 H 29 H 27 H (21-25) mmol/L ABG Total CO2 29 H 30 H 29 H (19-24) mmol/L ABG O2 Saturation 100.0 H 100.0 H 100.0 H (94-97) % ABG Hematocrit 32 L 32 L 32 L (34.0-46.0) % ABG Ionized Calcium 4.4 L 4.4 L 4.4 L (4.5-5.3) mg/dL ABG Glucose 167 H 183 H 184 H (75-99) mg/dL ABG Lactic Acid 2.2 H* 2.0 H 2.2 H* (0.5-1.6) mmol/L Hemoglobin 10.4 L 10.5 L 10.4 L (13.0-17.5) gm/dL Sodium (137-145) mmol/L Creatinine (0.66-1.25) mg/dL Glucose (74-99) mg/dL POC Glucose (mg/dL) (75-99) mg/dL Magnesium (1.6-2.3) mg/dL Total Protein (6.3-8.2) g/dL Albumin (3.5-5.0) g/dL Arterial Blood Glucose 167 H 183 H 184 H (75-99) mg/dL Crossmatch 09/28/20 09/28/20 09/28/20 Range/Units 13:00 13:50 13:50 WBC 14.9 H (3.8-10.6) k/uL RBC 4.00 L (4.30-5.90) m/uL Hgb 11.7 L D (13.0-17.5) gm/dL Hct 36.0 L (39.0-53.0) % Neutrophils # 12.3 H (1.3-7.7) k/uL Monocytes # (0-1.0) k/uL ABG pH (7.35-7.45) ABG pCO2 46 H (35-45) mmHg ABG pO2 >420 H (83-108) mmHg ABG HCO3 28 H (21-25) mmol/L ABG Total CO2 30 H (19-24) mmol/L ABG O2 Saturation 100.0 H (94-97) % ABG Hematocrit (34.0-46.0) % ABG Ionized Calcium (4.5-5.3) mg/dL ABG Glucose 226 H (75-99) mg/dL ABG Lactic Acid 1.7 H (0.5-1.6) mmol/L Hemoglobin 11.5 L (13.0-17.5) gm/dL Sodium 136 L (137-145) mmol/L Creatinine 0.58 L (0.66-1.25) mg/dL Glucose 200 H (74-99) mg/dL POC Glucose (mg/dL) (75-99) mg/dL Magnesium 3.1 H (1.6-2.3) mg/dL Total Protein 4.9 L (6.3-8.2) g/dL Albumin 2.8 L (3.5-5.0) g/dL Arterial Blood Glucose 226 H (75-99) mg/dL Crossmatch 09/28/20 09/28/20 09/28/20 Range/Units 13:52 14:07 14:57 WBC (3.8-10.6) k/uL RBC (4.30-5.90) m/uL Hgb (13.0-17.5) gm/dL Hct (39.0-53.0) % Neutrophils # (1.3-7.7) k/uL Monocytes # (0-1.0) k/uL ABG pH 7.33 L (7.35-7.45) ABG pCO2 57 H (35-45) mmHg ABG pO2 294 H (83-108) mmHg ABG HCO3 30 H (21-25) mmol/L ABG Total CO2 31 H (19-24) mmol/L ABG O2 Saturation 99.6 H (94-97) % ABG Hematocrit (34.0-46.0) % ABG Ionized Calcium (4.5-5.3) mg/dL ABG Glucose (75-99) mg/dL ABG Lactic Acid (0.5-1.6) mmol/L Hemoglobin (13.0-17.5) gm/dL Sodium (137-145) mmol/L Creatinine (0.66-1.25) mg/dL Glucose (74-99) mg/dL POC Glucose (mg/dL) 203 H 198 H (75-99) mg/dL Magnesium (1.6-2.3) mg/dL Total Protein (6.3-8.2) g/dL Albumin (3.5-5.0) g/dL Arterial Blood Glucose (75-99) mg/dL Crossmatch 09/28/20 09/28/20 09/28/20 Range/Units 16:17 17:00 17:02 WBC 15.4 H (3.8-10.6) k/uL RBC (4.30-5.90) m/uL Hgb (13.0-17.5) gm/dL Hct (39.0-53.0) % Neutrophils # 12.7 H (1.3-7.7) k/uL Monocytes # (0-1.0) k/uL ABG pH (7.35-7.45) ABG pCO2 (35-45) mmHg ABG pO2 (83-108) mmHg ABG HCO3 (21-25) mmol/L ABG Total CO2 (19-24) mmol/L ABG O2 Saturation (94-97) % ABG Hematocrit (34.0-46.0) % ABG Ionized Calcium (4.5-5.3) mg/dL ABG Glucose (75-99) mg/dL ABG Lactic Acid (0.5-1.6) mmol/L Hemoglobin (13.0-17.5) gm/dL Sodium (137-145) mmol/L Creatinine (0.66-1.25) mg/dL Glucose (74-99) mg/dL POC Glucose (mg/dL) 199 H 201 H (75-99) mg/dL Magnesium (1.6-2.3) mg/dL Total Protein (6.3-8.2) g/dL Albumin (3.5-5.0) g/dL Arterial Blood Glucose (75-99) mg/dL Crossmatch 09/28/20 09/28/20 09/28/20 Range/Units 17:59 18:59 19:00 WBC 14.7 H (3.8-10.6) k/uL RBC (4.30-5.90) m/uL Hgb (13.0-17.5) gm/dL Hct (39.0-53.0) % Neutrophils # 12.4 H (1.3-7.7) k/uL Monocytes # (0-1.0) k/uL ABG pH (7.35-7.45) ABG pCO2 (35-45) mmHg ABG pO2 (83-108) mmHg ABG HCO3 (21-25) mmol/L ABG Total CO2 (19-24) mmol/L ABG O2 Saturation (94-97) % ABG Hematocrit (34.0-46.0) % ABG Ionized Calcium (4.5-5.3) mg/dL ABG Glucose (75-99) mg/dL ABG Lactic Acid (0.5-1.6) mmol/L Hemoglobin (13.0-17.5) gm/dL Sodium (137-145) mmol/L Creatinine (0.66-1.25) mg/dL Glucose (74-99) mg/dL POC Glucose (mg/dL) 186 H 234 H (75-99) mg/dL Magnesium (1.6-2.3) mg/dL Total Protein (6.3-8.2) g/dL Albumin (3.5-5.0) g/dL Arterial Blood Glucose (75-99) mg/dL Crossmatch 09/28/20 09/28/20 09/28/20 Range/Units 20:09 21:18 21:56 WBC (3.8-10.6) k/uL RBC (4.30-5.90) m/uL Hgb (13.0-17.5) gm/dL Hct (39.0-53.0) % Neutrophils # (1.3-7.7) k/uL Monocytes # (0-1.0) k/uL ABG pH (7.35-7.45) ABG pCO2 (35-45) mmHg ABG pO2 (83-108) mmHg ABG HCO3 (21-25) mmol/L ABG Total CO2 (19-24) mmol/L ABG O2 Saturation (94-97) % ABG Hematocrit (34.0-46.0) % ABG Ionized Calcium (4.5-5.3) mg/dL ABG Glucose (75-99) mg/dL ABG Lactic Acid (0.5-1.6) mmol/L Hemoglobin (13.0-17.5) gm/dL Sodium (137-145) mmol/L Creatinine (0.66-1.25) mg/dL Glucose (74-99) mg/dL POC Glucose (mg/dL) 197 H 181 H 174 H (75-99) mg/dL Magnesium (1.6-2.3) mg/dL Total Protein (6.3-8.2) g/dL Albumin (3.5-5.0) g/dL Arterial Blood Glucose (75-99) mg/dL Crossmatch 09/28/20 09/29/20 09/29/20 Range/Units 22:59 00:07 01:07 WBC (3.8-10.6) k/uL RBC (4.30-5.90) m/uL Hgb (13.0-17.5) gm/dL Hct (39.0-53.0) % Neutrophils # (1.3-7.7) k/uL Monocytes # (0-1.0) k/uL ABG pH (7.35-7.45) ABG pCO2 (35-45) mmHg ABG pO2 (83-108) mmHg ABG HCO3 (21-25) mmol/L ABG Total CO2 (19-24) mmol/L ABG O2 Saturation (94-97) % ABG Hematocrit (34.0-46.0) % ABG Ionized Calcium (4.5-5.3) mg/dL ABG Glucose (75-99) mg/dL ABG Lactic Acid (0.5-1.6) mmol/L Hemoglobin (13.0-17.5) gm/dL Sodium (137-145) mmol/L Creatinine (0.66-1.25) mg/dL Glucose (74-99) mg/dL POC Glucose (mg/dL) 153 H 161 H 137 H (75-99) mg/dL Magnesium (1.6-2.3) mg/dL Total Protein (6.3-8.2) g/dL Albumin (3.5-5.0) g/dL Arterial Blood Glucose (75-99) mg/dL Crossmatch 09/29/20 09/29/20 09/29/20 Range/Units 02:02 03:08 04:08 WBC 17.6 H (3.8-10.6) k/uL RBC 4.29 L (4.30-5.90) m/uL Hgb 12.7 L (13.0-17.5) gm/dL Hct 38.4 L (39.0-53.0) % Neutrophils # 14.6 H (1.3-7.7) k/uL Monocytes # 1.4 H (0-1.0) k/uL ABG pH (7.35-7.45) ABG pCO2 (35-45) mmHg ABG pO2 (83-108) mmHg ABG HCO3 (21-25) mmol/L ABG Total CO2 (19-24) mmol/L ABG O2 Saturation (94-97) % ABG Hematocrit (34.0-46.0) % ABG Ionized Calcium (4.5-5.3) mg/dL ABG Glucose (75-99) mg/dL ABG Lactic Acid (0.5-1.6) mmol/L Hemoglobin (13.0-17.5) gm/dL Sodium (137-145) mmol/L Creatinine (0.66-1.25) mg/dL Glucose (74-99) mg/dL POC Glucose (mg/dL) 151 H 139 H (75-99) mg/dL Magnesium (1.6-2.3) mg/dL Total Protein (6.3-8.2) g/dL Albumin (3.5-5.0) g/dL Arterial Blood Glucose (75-99) mg/dL Crossmatch 09/29/20 09/29/20 09/29/20 Range/Units 04:08 04:08 05:10 WBC (3.8-10.6) k/uL RBC (4.30-5.90) m/uL Hgb (13.0-17.5) gm/dL Hct (39.0-53.0) % Neutrophils # (1.3-7.7) k/uL Monocytes # (0-1.0) k/uL ABG pH (7.35-7.45) ABG pCO2 (35-45) mmHg ABG pO2 (83-108) mmHg ABG HCO3 (21-25) mmol/L ABG Total CO2 (19-24) mmol/L ABG O2 Saturation (94-97) % ABG Hematocrit (34.0-46.0) % ABG Ionized Calcium (4.5-5.3) mg/dL ABG Glucose (75-99) mg/dL ABG Lactic Acid (0.5-1.6) mmol/L Hemoglobin (13.0-17.5) gm/dL Sodium 136 L (137-145) mmol/L Creatinine 0.65 L (0.66-1.25) mg/dL Glucose 133 H (74-99) mg/dL POC Glucose (mg/dL) 139 H 124 H (75-99) mg/dL Magnesium (1.6-2.3) mg/dL Total Protein 5.4 L (6.3-8.2) g/dL Albumin 3.3 L (3.5-5.0) g/dL Arterial Blood Glucose (75-99) mg/dL Crossmatch 09/29/20 09/29/20 09/29/20 Range/Units 06:20 07:10 08:18 WBC (3.8-10.6) k/uL RBC (4.30-5.90) m/uL Hgb (13.0-17.5) gm/dL Hct (39.0-53.0) % Neutrophils # (1.3-7.7) k/uL Monocytes # (0-1.0) k/uL ABG pH (7.35-7.45) ABG pCO2 (35-45) mmHg ABG pO2 (83-108) mmHg ABG HCO3 (21-25) mmol/L ABG Total CO2 (19-24) mmol/L ABG O2 Saturation (94-97) % ABG Hematocrit (34.0-46.0) % ABG Ionized Calcium (4.5-5.3) mg/dL ABG Glucose (75-99) mg/dL ABG Lactic Acid (0.5-1.6) mmol/L Hemoglobin (13.0-17.5) gm/dL Sodium (137-145) mmol/L Creatinine (0.66-1.25) mg/dL Glucose (74-99) mg/dL POC Glucose (mg/dL) 134 H 131 H 118 H (75-99) mg/dL Magnesium (1.6-2.3) mg/dL Total Protein (6.3-8.2) g/dL Albumin (3.5-5.0) g/dL Arterial Blood Glucose (75-99) mg/dL Crossmatch 09/29/20 Range/Units 09:30 WBC (3.8-10.6) k/uL RBC (4.30-5.90) m/uL Hgb (13.0-17.5) gm/dL Hct (39.0-53.0) % Neutrophils # (1.3-7.7) k/uL Monocytes # (0-1.0) k/uL ABG pH (7.35-7.45) ABG pCO2 (35-45) mmHg ABG pO2 (83-108) mmHg ABG HCO3 (21-25) mmol/L ABG Total CO2 (19-24) mmol/L ABG O2 Saturation (94-97) % ABG Hematocrit (34.0-46.0) % ABG Ionized Calcium (4.5-5.3) mg/dL ABG Glucose (75-99) mg/dL ABG Lactic Acid (0.5-1.6) mmol/L Hemoglobin (13.0-17.5) gm/dL Sodium (137-145) mmol/L Creatinine (0.66-1.25) mg/dL Glucose (74-99) mg/dL POC Glucose (mg/dL) 125 H (75-99) mg/dL Magnesium (1.6-2.3) mg/dL Total Protein (6.3-8.2) g/dL Albumin (3.5-5.0) g/dL Arterial Blood Glucose (75-99) mg/dL Crossmatch Assessment and Plan Plan: Assessment: #1. Severe aortic valve stenosis, and coronary artery disease status post aortic valve replacement with a 25 mm bovine pericardial valve, and CABG 1 with LIU to the LAD, and ligation of the left atrial appendage, postoperative day #1 #2. Routine mechanical ventilator management, however patient self extubated and is currently in the 100% nonrebreather. Tolerating extubation quite well, on postoperative day #1, patient is awake and alert, breathing comfortably, currently on 4 L of oxygen #3. Coronary artery disease, with previous history of stenting #4. COPD, with preop FEV1 of 40% #5. Morbid obesity #6. Hypertension #7. Diabetes mellitus type 2 #8. Former smoker #9. Hyperlipidemia #10. History of CVA #11. Carotid artery stenosis, status post right carotid endarterectomy #12. History of COVID 19 infection in April 2020 Plan: Weaning FiO2 to maintain O2 saturations at or above 92% Patient is awake and alert, doing well, he is working on the incentive spirometer Today's chest x-ray has been reviewed Labs have been noted Continue nebulized bronchodilators 4 times a day Encourage ambulation Hemodynamically stable No arrhythmias No significant bleeding out of the chest tubes We'll continue to closely follow in intensive care unit I performed a history & physical examination of the patient and discussed their management with my nurse practitioner, Jennie Swift. I reviewed the nurse practitioner's note and agree with the documented findings and plan of care. Lung sounds are positive for dim breath sounds. The findings and the impression was discussed with the patient. I attest to the documentation by the nurse practitioner. Time with Patient: Less than 30
--- NOTE | 2020-09-29 09:41 | P.PN ---
Subjective Progress Note Date: 09/29/20 Principal diagnosis: Aortic valve stenosis, coronary artery disease, reduced left ventricular systolic function with EF 40-45%. Previous medical history of CAD with myocardial infarction status post PCI to the LAD in 2016 and 2019, SVT status post ablation, hypertension, hyperlipidemia, diabetes, previous tobacco dependence, severe COPD, Covid infection in April 2020, questionable obstructive sleep apnea with plans for sleep study in the future, bilateral carotid artery stenosis status post right carotid endarterectomy with plans for future left carotid endarterectomy, and family history of coronary artery disease POD #1 aortic valve replacement with a 25 mm Inspiris bovine pericardial valve prosthesis, coronary artery bypass 1 with left internal mammary artery to the left anterior descending artery, epi-aortic ultrasonography, ligation of the left atrial appendage with a 35 mm AtriCure clip Patient's currently sitting up in a recliner in the intensive care unit in no acute distress. Patient self extubated last 15 x 22 BiPAP, currently on 4 L nasal cannula. States post surgical pain is controlled on current medication regimen. Remains in sinus rhythm, hemodynamically stable on low dose Primacor and IV Cleviprex. Right internal jugular [place]/Cordis, right radial arterial line, mediastinal/left pleural chest tube all remain present. Objective - Vital Signs Vital signs: Vital Signs Temp 98.1 F 09/28/20 15:00 Pulse 97 09/29/20 07:00 Resp 24 09/29/20 07:00 BP 168/83 09/28/20 05:57 Pulse Ox 92 L 09/29/20 07:00 Intake & Output 09/28/20 09/29/20 09/29/20 18:59 06:59 18:59 Intake Total 600.166 2197.030 68.0 Output Total 1980 885 43 Balance -0571.350 7301.030 25.0 Weight 131.5 kg Intake: IV 132 1298.9 68.0 ACETAMINOPHEN IV (For NPO 100 ) 1,000 mg In Empty Bag 1 bag @ 400 mls/hr IVPB Q6HR [facility] Rx#:[id number] Lactated Ringers 550 50 Nitro 16.5 1.5 Primacor 84.4 7.5 cardiac output 90 340 ceFAZolin 3 gm In Sodium 100 Chloride 0.9% 100 ml @ 200 mls/hr IVPB Q8HR [facility] Rx#:[id number] pressure bag 36 108 9 Intake, IV Titration 319.745 273.130 Amount ACETAMINOPHEN IV (For NPO 100 ) 1,000 mg In Empty Bag 1 bag @ 400 mls/hr IVPB Q6HR [facility] Rx#:[id number] Clevidipine Butyrate 25 4.834 116.667 mg In Empty Bag 1 bag @ 1 MG/HR 2 mls/hr IV .Q24H [facility] Rx#:[id number] Insulin Regular 100 unit 15.723 106.463 In Sodium Chloride 0.9% 100 ml @ Per Protocol IV .Q0M [facility] Rx#:[id number] Lactated Ringers 1,000 ml 150 50 @ 20 mls/hr IV .Q24H [facility] Rx#:[id number] Milrinone-D5w Pmx 20 mg 15.188 In Dextrose/Water 1 100ml .bag @ 0.3 MCG/KG/MIN 11. 25 mls/hr IV .Q8H54M [facility] Rx#:[id number] propofoL 1,000 mg In 34.0 Empty Bag 1 bag @ Titrate IV .Q0M [facility] Rx#: [id number] Oral 120 850 Output: Chest Tube Drainage 210 390 20 left pleural & 210 390 20 mediastinal Urine 970 495 23 Estimated Blood Loss 800 Other: Voiding Method Indwelling Catheter Indwelling Catheter ABP, PAP, CO, CI - Last Documented Arterial Blood Pressure 143/54 Pulmonary Artery Pressure 36/17 Cardiac Output 8.1 Cardiac Index 3.4 - Exam CONSTITUTIONAL: Appears comfortable, cooperative, no acute distress RESPIRATORY: Lungs sounds diminished bilaterally. Respirations even, nonla bored. Currently on 4 L nasal cannula with oxygen saturation 93%. Able to achieve 1250 mL on incentive spirometry. Strong cough. CARDIOVASCULAR: S1, S2 present. Regular rate and rhythm, sinus rhythm on telemetry. Sternum stable. Palpable peripheral pulses bilaterally. Trace bilateral lower extremity edema present. No calf pain or tenderness noted. Heart hugger in place with patient demonstrating appropriate use. Antiembolism stockings, SCDs present. GASTROINTESTINAL: Abdomen soft, nontender, nondistended. Hypoactive bowel sounds present 4 quadrants. Tolerating clear liquids. Negative flatus GENITOURINARY: Avitia present draining clear, yellow urine. Output overnight 30 mL per hour INTEGUMENTARY: Skin is warm and dry with evidence of good perfusion. Anterior chest incision well approximated and covered with dry intact dressing. NEUROLOGIC: Cranial nerves II through XII intact MUSKULOSKELETAL: Able to move all extremities, strength equal bilaterally PSYCHIATRIC: Alert and oriented to person place and time, appropriate affect, intact judgment and insight INVASIVE LINES AND TUBES: Mediastinal/left pleural chest tubes present and connected to wall suction, no air leaks present, 280 mL serosanguineous drainage overnight, 600 mL since surgery. A/V epicardial pacemaker wires present, grounded. Right internal jugular [place]/Cordis, right radial arterial line present. Last CO/CI 8.1/3.4, PA 33/17, CVP 10. - Allied health notes Allied health notes reviewed: nursing - Labs CBC & Chem 7: 09/29/20 04:08 09/29/20 04:08 Labs: Abnormal Lab Results - Last 24 Hours (Table) 09/24/20 09/28/20 09/28/20 Range/Units 09:00 08:22 10:14 WBC (3.8-10.6) k/uL RBC (4.30-5.90) m/uL Hgb (13.0-17.5) gm/dL Hct (39.0-53.0) % Neutrophils # (1.3-7.7) k/uL Monocytes # (0-1.0) k/uL ABG pH (7.35-7.45) ABG pCO2 47 H (35-45) mmHg ABG pO2 >420 H 262 H (83-108) mmHg ABG HCO3 30 H 29 H (21-25) mmol/L ABG Total CO2 31 H 30 H (19-24) mmol/L ABG O2 Saturation 100.0 H 100.0 H (94-97) % ABG Hematocrit (34.0-46.0) % ABG Ionized Calcium (4.5-5.3) mg/dL ABG Glucose 215 H 202 H (75-99) mg/dL ABG Lactic Acid 2.6 H* (0.5-1.6) mmol/L Hemoglobin 12.6 L (13.0-17.5) gm/dL Sodium (137-145) mmol/L Creatinine (0.66-1.25) mg/dL Glucose (74-99) mg/dL POC Glucose (mg/dL) (75-99) mg/dL Magnesium (1.6-2.3) mg/dL Total Protein (6.3-8.2) g/dL Albumin (3.5-5.0) g/dL Arterial Blood Glucose 215 H 202 H (75-99) mg/dL Crossmatch See Detail 09/28/20 09/28/20 09/28/20 Range/Units 10:51 11:23 11:54 WBC (3.8-10.6) k/uL RBC (4.30-5.90) m/uL Hgb (13.0-17.5) gm/dL Hct (39.0-53.0) % Neutrophils # (1.3-7.7) k/uL Monocytes # (0-1.0) k/uL ABG pH (7.35-7.45) ABG pCO2 47 H (35-45) mmHg ABG pO2 299 H 329 H 315 H (83-108) mmHg ABG HCO3 27 H 29 H 27 H (21-25) mmol/L ABG Total CO2 29 H 30 H 29 H (19-24) mmol/L ABG O2 Saturation 100.0 H 100.0 H 100.0 H (94-97) % ABG Hematocrit 32 L 32 L 32 L (34.0-46.0) % ABG Ionized Calcium 4.4 L 4.4 L 4.4 L (4.5-5.3) mg/dL ABG Glucose 167 H 183 H 184 H (75-99) mg/dL ABG Lactic Acid 2.2 H* 2.0 H 2.2 H* (0.5-1.6) mmol/L Hemoglobin 10.4 L 10.5 L 10.4 L (13.0-17.5) gm/dL Sodium (137-145) mmol/L Creatinine (0.66-1.25) mg/dL Glucose (74-99) mg/dL POC Glucose (mg/dL) (75-99) mg/dL Magnesium (1.6-2.3) mg/dL Total Protein (6.3-8.2) g/dL Albumin (3.5-5.0) g/dL Arterial Blood Glucose 167 H 183 H 184 H (75-99) mg/dL Crossmatch 07/26/21 07/26/21 07/26/21 Range/Units 13:00 13:50 13:50 WBC 14.9 H (3.8-10.6) k/uL RBC 4.00 L (4.30-5.90) m/uL Hgb 11.7 L D (13.0-17.5) gm/dL Hct 36.0 L (39.0-53.0) % Neutrophils # 12.3 H (1.3-7.7) k/uL Monocytes # (0-1.0) k/uL ABG pH (7.35-7.45) ABG pCO2 46 H (35-45) mmHg ABG pO2 >420 H (83-108) mmHg ABG HCO3 28 H (21-25) mmol/L ABG Total CO2 30 H (19-24) mmol/L ABG O2 Saturation 100.0 H (94-97) % ABG Hematocrit (34.0-46.0) % ABG Ionized Calcium (4.5-5.3) mg/dL ABG Glucose 226 H (75-99) mg/dL ABG Lactic Acid 1.7 H (0.5-1.6) mmol/L Hemoglobin 11.5 L (13.0-17.5) gm/dL Sodium 136 L (137-145) mmol/L Creatinine 0.58 L (0.66-1.25) mg/dL Glucose 200 H (74-99) mg/dL POC Glucose (mg/dL) (75-99) mg/dL Magnesium 3.1 H (1.6-2.3) mg/dL Total Protein 4.9 L (6.3-8.2) g/dL Albumin 2.8 L (3.5-5.0) g/dL Arterial Blood Glucose 226 H (75-99) mg/dL Crossmatch 09/28/20 09/28/20 09/28/20 Range/Units 13:52 14:07 14:57 WBC (3.8-10.6) k/uL RBC (4.30-5.90) m/uL Hgb (13.0-17.5) gm/dL Hct (39.0-53.0) % Neutrophils # (1.3-7.7) k/uL Monocytes # (0-1.0) k/uL ABG pH 7.33 L (7.35-7.45) ABG pCO2 57 H (35-45) mmHg ABG pO2 294 H (83-108) mmHg ABG HCO3 30 H (21-25) mmol/L ABG Total CO2 31 H (19-24) mmol/L ABG O2 Saturation 99.6 H (94-97) % ABG Hematocrit (34.0-46.0) % ABG Ionized Calcium (4.5-5.3) mg/dL ABG Glucose (75-99) mg/dL ABG Lactic Acid (0.5-1.6) mmol/L Hemoglobin (13.0-17.5) gm/dL Sodium (137-145) mmol/L Creatinine (0.66-1.25) mg/dL Glucose (74-99) mg/dL POC Glucose (mg/dL) 203 H 198 H (75-99) mg/dL Magnesium (1.6-2.3) mg/dL Total Protein (6.3-8.2) g/dL Albumin (3.5-5.0) g/dL Arterial Blood Glucose (75-99) mg/dL Crossmatch 09/28/20 09/28/20 09/28/20 Range/Units 16:17 17:00 17:02 WBC 15.4 H (3.8-10.6) k/uL RBC (4.30-5.90) m/uL Hgb (13.0-17.5) gm/dL Hct (39.0-53.0) % Neutrophils # 12.7 H (1.3-7.7) k/uL Monocytes # (0-1.0) k/uL ABG pH (7.35-7.45) ABG pCO2 (35-45) mmHg ABG pO2 (83-108) mmHg ABG HCO3 (21-25) mmol/L ABG Total CO2 (19-24) mmol/L ABG O2 Saturation (94-97) % ABG Hematocrit (34.0-46.0) % ABG Ionized Calcium (4.5-5.3) mg/dL ABG Glucose (75-99) mg/dL ABG Lactic Acid (0.5-1.6) mmol/L Hemoglobin (13.0-17.5) gm/dL Sodium (137-145) mmol/L Creatinine (0.66-1.25) mg/dL Glucose (74-99) mg/dL POC Glucose (mg/dL) 199 H 201 H (75-99) mg/dL Magnesium (1.6-2.3) mg/dL Total Protein (6.3-8.2) g/dL Albumin (3.5-5.0) g/dL Arterial Blood Glucose (75-99) mg/dL Crossmatch 09/28/20 09/28/20 09/28/20 Range/Units 17:59 18:59 19:00 WBC 14.7 H (3.8-10.6) k/uL RBC (4.30-5.90) m/uL Hgb (13.0-17.5) gm/dL Hct (39.0-53.0) % Neutrophils # 12.4 H (1.3-7.7) k/uL Monocytes # (0-1.0) k/uL ABG pH (7.35-7.45) ABG pCO2 (35-45) mmHg ABG pO2 (83-108) mmHg ABG HCO3 (21-25) mmol/L ABG Total CO2 (19-24) mmol/L ABG O2 Saturation (94-97) % ABG Hematocrit (34.0-46.0) % ABG Ionized Calcium (4.5-5.3) mg/dL ABG Glucose (75-99) mg/dL ABG Lactic Acid (0.5-1.6) mmol/L Hemoglobin (13.0-17.5) gm/dL Sodium (137-145) mmol/L Creatinine (0.66-1.25) mg/dL Glucose (74-99) mg/dL POC Glucose (mg/dL) 186 H 234 H (75-99) mg/dL Magnesium (1.6-2.3) mg/dL Total Protein (6.3-8.2) g/dL Albumin (3.5-5.0) g/dL Arterial Blood Glucose (75-99) mg/dL Crossmatch 09/28/20 09/28/20 09/28/20 Range/Units 20:09 21:18 21:56 WBC (3.8-10.6) k/uL RBC (4.30-5.90) m/uL Hgb (13.0-17.5) gm/dL Hct (39.0-53.0) % Neutrophils # (1.3-7.7) k/uL Monocytes # (0-1.0) k/uL ABG pH (7.35-7.45) ABG pCO2 (35-45) mmHg ABG pO2 (83-108) mmHg ABG HCO3 (21-25) mmol/L ABG Total CO2 (19-24) mmol/L ABG O2 Saturation (94-97) % ABG Hematocrit (34.0-46.0) % ABG Ionized Calcium (4.5-5.3) mg/dL ABG Glucose (75-99) mg/dL ABG Lactic Acid (0.5-1.6) mmol/L Hemoglobin (13.0-17.5) gm/dL Sodium (137-145) mmol/L Creatinine (0.66-1.25) mg/dL Glucose (74-99) mg/dL POC Glucose (mg/dL) 197 H 181 H 174 H (75-99) mg/dL Magnesium (1.6-2.3) mg/dL Total Protein (6.3-8.2) g/dL Albumin (3.5-5.0) g/dL Arterial Blood Glucose (75-99) mg/dL Crossmatch 09/28/20 09/29/20 09/29/20 Range/Units 22:59 00:07 01:07 WBC (3.8-10.6) k/uL RBC (4.30-5.90) m/uL Hgb (13.0-17.5) gm/dL Hct (39.0-53.0) % Neutrophils # (1.3-7.7) k/uL Monocytes # (0-1.0) k/uL ABG pH (7.35-7.45) ABG pCO2 (35-45) mmHg ABG pO2 (83-108) mmHg ABG HCO3 (21-25) mmol/L ABG Total CO2 (19-24) mmol/L ABG O2 Saturation (94-97) % ABG Hematocrit (34.0-46.0) % ABG Ionized Calcium (4.5-5.3) mg/dL ABG Glucose (75-99) mg/dL ABG Lactic Acid (0.5-1.6) mmol/L Hemoglobin (13.0-17.5) gm/dL Sodium (137-145) mmol/L Creatinine (0.66-1.25) mg/dL Glucose (74-99) mg/dL POC Glucose (mg/dL) 153 H 161 H 137 H (75-99) mg/dL Magnesium (1.6-2.3) mg/dL Total Protein (6.3-8.2) g/dL Albumin (3.5-5.0) g/dL Arterial Blood Glucose (75-99) mg/dL Crossmatch 09/29/20 09/29/20 09/29/20 Range/Units 02:02 03:08 04:08 WBC 17.6 H (3.8-10.6) k/uL RBC 4.29 L (4.30-5.90) m/uL Hgb 12.7 L (13.0-17.5) gm/dL Hct 38.4 L (39.0-53.0) % Neutrophils # 14.6 H (1.3-7.7) k/uL Monocytes # 1.4 H (0-1.0) k/uL ABG pH (7.35-7.45) ABG pCO2 (35-45) mmHg ABG pO2 (83-108) mmHg ABG HCO3 (21-25) mmol/L ABG Total CO2 (19-24) mmol/L ABG O2 Saturation (94-97) % ABG Hematocrit (34.0-46.0) % ABG Ionized Calcium (4.5-5.3) mg/dL ABG Glucose (75-99) mg/dL ABG Lactic Acid (0.5-1.6) mmol/L Hemoglobin (13.0-17.5) gm/dL Sodium (137-145) mmol/L Creatinine (0.66-1.25) mg/dL Glucose (74-99) mg/dL POC Glucose (mg/dL) 151 H 139 H (75-99) mg/dL Magnesium (1.6-2.3) mg/dL Total Protein (6.3-8.2) g/dL Albumin (3.5-5.0) g/dL Arterial Blood Glucose (75-99) mg/dL Crossmatch 09/29/20 09/29/20 09/29/20 Range/Units 04:08 04:08 05:10 WBC (3.8-10.6) k/uL RBC (4.30-5.90) m/uL Hgb (13.0-17.5) gm/dL Hct (39.0-53.0) % Neutrophils # (1.3-7.7) k/uL Monocytes # (0-1.0) k/uL ABG pH (7.35-7.45) ABG pCO2 (35-45) mmHg ABG pO2 (83-108) mmHg ABG HCO3 (21-25) mmol/L ABG Total CO2 (19-24) mmol/L ABG O2 Saturation (94-97) % ABG Hematocrit (34.0-46.0) % ABG Ionized Calcium (4.5-5.3) mg/dL ABG Glucose (75-99) mg/dL ABG Lactic Acid (0.5-1.6) mmol/L Hemoglobin (13.0-17.5) gm/dL Sodium 136 L (137-145) mmol/L Creatinine 0.65 L (0.66-1.25) mg/dL Glucose 133 H (74-99) mg/dL POC Glucose (mg/dL) 139 H 124 H (75-99) mg/dL Magnesium (1.6-2.3) mg/dL Total Protein 5.4 L (6.3-8.2) g/dL Albumin 3.3 L (3.5-5.0) g/dL Arterial Blood Glucose (75-99) mg/dL Crossmatch 09/29/20 09/29/20 Range/Units 06:20 07:10 WBC (3.8-10.6) k/uL RBC (4.30-5.90) m/uL Hgb (13.0-17.5) gm/dL Hct (39.0-53.0) % Neutrophils # (1.3-7.7) k/uL Monocytes # (0-1.0) k/uL ABG pH (7.35-7.45) ABG pCO2 (35-45) mmHg ABG pO2 (83-108) mmHg ABG HCO3 (21-25) mmol/L ABG Total CO2 (19-24) mmol/L ABG O2 Saturation (94-97) % ABG Hematocrit (34.0-46.0) % ABG Ionized Calcium (4.5-5.3) mg/dL ABG Glucose (75-99) mg/dL ABG Lactic Acid (0.5-1.6) mmol/L Hemoglobin (13.0-17.5) gm/dL Sodium (137-145) mmol/L Creatinine (0.66-1.25) mg/dL Glucose (74-99) mg/dL POC Glucose (mg/dL) 134 H 131 H (75-99) mg/dL Magnesium (1.6-2.3) mg/dL Total Protein (6.3-8.2) g/dL Albumin (3.5-5.0) g/dL Arterial Blood Glucose (75-99) mg/dL Crossmatch - Imaging and Cardiology Chest x-ray: image reviewed Assessment and Plan Assessment: 1. Aortic valve stenosis, status post bioprosthetic aortic valve replacement 2. Coronary artery disease, status post single-vessel CABG 3. Reduced left ventricular systolic function with EF 40-45% 4. History of CAD with myocardial infarction status post PCI to the LAD in 2016 and 2019 5. History of SVT status post ablation 6. Hypertension 7. Hyperlipidemia, treated, cholesterol 110, LDL 54 8. Diabetes, metformin stopped in June due to diarrhea, preoperative hemoglobin A1c 10.3%, restarted on metformin with addition of 10 units Lantus started 09/25/2020 by primary care 9. Previous tobacco dependence 10. Severe COPD, preoperative FEV1 41% of predicted 11. Covid infection in April 2020, PCR negative 09/24/2020 12. Questionable obstructive sleep apnea with plans for sleep study in the future 13. Bilateral carotid artery stenosis status post right carotid endarterectomy with plans for future left carotid endarterectomy 14. Family history of coronary artery disease Plan: 1. Continue aspirin, statin, Plavix, beta dick therapy. Will increase beta dick therapy as tolerated, increased to 50 mg twice daily today 2. Will initiate low-dose Vick, lisinopril 5 mg twice daily today. Wean Cleviprex as tolerated 3. Wean Primacor to 0.1 mcg/kg/m. Continue Primacor and [place] for another 24 hours 4. Wean O2 as tolerated. Encourage incentive spirometry is 10 times every hour while awake. Bronchodilators per pulmonology 5. Increase activity, ambulate as tolerated. PT/OT/cardiac rehab consulted 6. Will monitor daily labs and x-rays. Electrolyte replacement per protocol 7. GI/DVT prophylaxis 8. Pain controlled current medication regimen 9. Insulin management per primary care service. Patient has uncontrolled diabetes with hyperglycemia, needs tight blood sugar control for proper sternal union and prevention of infection 10. Continue chest tubes, [place]/Cordis, radial arterial line for another 24 hours 11. Continue Avitia catheter for another 24 hours for strict accurate intake and output. Daily weights 12. More recommendations to follow Time with Patient: Greater than 30
--- NOTE | 2020-09-29 09:53 | XR ---
EXAMINATION TYPE: XR chest 1V portable DATE OF EXAM: 09/29/2020 COMPARISON: 09/28/2020 HISTORY: Postop TECHNIQUE: Single frontal view of the chest is obtained. FINDINGS: [place]-Karl catheter postsurgical changes seen with left-sided chest tube. ET and NG tube mendez ve been removed. Mediastinal drain difficult to see but presumed to be present. Coarsened bilateral interstitial markings with areas of subsegmental consolidation and small pleural effusion. IMPRESSION: 1. Bilateral infiltrate and small effusion correlate for mild venous congestion. Findings stable
[2020-09-29 10:10] LABS: Glucose,Whole Blood 132 mg/dL (75-99)
[2020-09-29] MEDS: METOCLOPRAMIDE 5 MG/ML 2 ML VIAL IVP PRN (10:13)
--- NOTE | 2020-09-29 10:54 | P.CRDCN ---
History of Present Illness History of present illness: HISTORY OF PRESENTING ILLNESS This is a pleasant 60-year-old male past medical history significant for coronary artery disease status post PCI to the LAD in 2017 and again in 2020, aortic stenosis, hypertension, dyslipidemia, cardiac ablation for SVT, peripheral vascular disease status post right carotid endarterectomy and COPD. He follows in the office with Dr. Lozano. He underwent bioprosthetic aortic valve replacement and LIU-LAD yesterday with Dr. Anthony. He is seen and examined sitting up in the chair in no acute distress. He is complaining of incisional pain when he moves or coughs. No exertional chest pain or shortness of breath. Telemetry reveals maintaining SR. EKG reveals sinus mechanism heart rate of 96 with left posterior fascicular block and right bundle branch block. Chest x-ray this morning reveals bilateral infiltrate and a small effusion. Laboratory data reviewed, WBC 17.6, hemoglobin 12.7, platelets 156, sodium 136, potassium 4.3, creatinine 0.65 and magnesium 2.2. Current daily cardiac medications include aspirin 325 mg daily, atorvastatin 80 mg daily, Plavix 75 mg daily, lisinopril 5 mg twice a day and metoprolol 50 mg BID. He continues to be on milrinone infusion with cardiac output of 6.9. REVIEW OF SYSTEMS At the time of my exam: CONSTITUTIONAL: Denies fever or chills. CARDIOVASCULAR: Denies chest pain, shortness of breath, orthopnea, PND or palpitations. RESPIRATORY: Denies cough. GASTROINTESTINAL: Denies abdominal pain, diarrhea, constipation, nausea or vomiting. MUSCULOSKELETAL: Denies myalgias. NEUROLOGIC: Denies numbness, tingling, headacbe or weakness. ENDOCRINE: Denies fatigue, weight change, polydipsia or polyurina. GENITOURINARY: Denies burning, hematuria or urgency with micturation. HEMATOLOGIC: Denies history of anemia or bleeding. PHYSICAL EXAMINATION Blood pressure 118/50, PAP 34/17, CVP 10 heart rate 92 afebrile and maintaining oxygen saturation on nasal cannula. CONSTITUTIONAL: No apparent distress. HEENT: Head is normocephalic. Pupils are equal, round. Sclerae anicteric. Mucous membranes of the mouth are moist. No JVD. No carotid bruit. CHEST EXAMINATION: Lungs are clear to auscultation. No chest wall tenderness is noted on palpation or with deep breathing. HEART EXAMINATION: Regular rate and rhythm. S1, S2 heard. Stustolic ejection murmur at the base, no gallops or rub. ABDOMEN: Soft, nontender. Positive bowel sounds. EXTREMITIES: 2+ peripheral pulses, no lower extremity edema and no calf tenderness. NEUROLOGIC EXAMINATION: Patient is awake, alert and oriented x3. ASSESSMENT Aortic stenosis s/p bioprosthetic aortic valve replacement Coronary artery disease s/p LIU-LAD Hypertension Dyslipidemia Diabetes mellitus Peripheral vascular disease s/p right carotid endartectomy PLAN Continue management per CT surgery. Increase activity as he can tolerate. Encourage incentive spirometer use. We will continue to follow and make recommendations accordingly. Thank you kindly for this consultation. Nurse Practitioner note has been reviewed, I agree with a documented findings and plan of care. Patient was seen and examined. Past Medical History Past Medical History: Coronary Artery Disease (CAD), COPD, Diabetes Mellitus, Hyperlipidemia, Hypertension, Myocardial Infarction ([place]), Osteoarthritis (OA), Pneumonia, Supraventricular Tachycardia (SVT) Additional Past Medical History / Comment(s): Acute hypoxic respiratory failure/covid in 2020, poss. pneumonia, NIDDM type II but not on medication anymore, arthritis bilateral hands, umbilical hernia, SOB w/exertion, supposed to have sleep study in future Last Myocardial Infarction Date:: 12-23-16 History of Any Multi-Drug Resistant Organisms: None Reported Past Surgical History: Appendectomy, Cardiac Ablation, Heart Catheterization With Stent, Orthopedic Surgery Additional Past Surgical History / Comment(s): Cardiac ablation for SVT, R carotid endarterectomy, bilateral carpal tunnel releases, colonoscopies/benign polyps. Past Anesthesia/Blood Transfusion Reactions: No Reported Reaction Additional Past Anesthesia/Blood Transfusion Reaction / Comment(s): Pt has claustrophobia. no hx. blood transfusion Date of Last Stent Placement:: 2018 Smoking Status: Former smoker - Past Family History Father Brother(s) Family Medical History: Cancer Additional Family Medical History / Comment(s): Father from colon cancer at the age of 63 yrs. Brother had colon cancer with surgical removal. Mother Family Medical History: Coronary Artery Disease (CAD), Diabetes Mellitus, Myocardial Infarction ([place]) Additional Family Medical History / Comment(s): Mother of a [place] at the age of 79yrs. She had an AICD/pacer. Medications and Allergies Home Medications Medication Instructions Recorded Confirmed Type Aspirin 81 mg PO DAILY #30 chew 12/26/16 09/28/20 Rx Nitroglycerin Sl Tabs [Nitrostat] 0.4 mg SUBLINGUAL Q5M PRN #25 tab 12/26/16 09/28/20 Rx Ibuprofen [Motrin Ib] 400 - 600 mg PO Q6H PRN 09/08/18 09/28/20 History lisinopriL [Zestril] 10 mg PO BID 09/08/18 09/28/20 History carvediloL [Coreg*] 12.5 mg PO BID-W/MEALS #60 tab 05/04/19 09/28/20 Rx Albuterol Inhaler [Ventolin Hfa 2 puff INHALATION RT-QID PRN 04/29/20 09/28/20 History Inhaler] Atorvastatin [Lipitor] 80 mg PO HS 04/29/20 09/28/20 History hydroCHLOROthiazide [Hydrodiuril] 25 mg PO DAILY 04/29/20 09/28/20 History Acetaminophen Tab [Tylenol] 650 mg PO Q6HR PRN tab 05/01/20 09/28/20 Rx Ascorbic Acid [Vitamin C] 1,000 mg PO DAILY 30 Days #60 tab 05/01/20 09/28/20 Rx Zinc 50 mg PO DAILY 07/06/20 09/28/20 History Clopidogrel [Plavix] 75 mg PO HS 07/08/20 09/28/20 History Budesonide-Formot 160-4.5 Mcg 2 puff INHALATION BID 09/24/20 09/28/20 History [Symbicort 160-4.5 Mcg Inhaler] Montelukast [Singulair] 10 mg PO HS 09/24/20 09/28/20 History Potassium Gluconate 99 mg PO DAILY 09/24/20 09/28/20 History Spironolactone 25 mg PO DAILY 09/24/20 09/28/20 History Allergies Allergy/AdvReac Type Severity Reaction Status Date / Time No Known Allergies Allergy Verified 09/28/20 05:45 Physical Exam Vitals: Vital Signs Temp Pulse Resp Pulse Ox 09/29/20 07:00 97 24 92 L 09/29/20 06:30 98 25 H 93 L 09/29/20 06:00 108 H 23 94 L 09/29/20 05:30 96 22 91 L 09/29/20 05:00 89 16 94 L 09/29/20 04:30 90 21 93 L 09/29/20 04:00 89 17 92 L 09/29/20 03:30 88 16 92 L 09/29/20 03:00 90 15 92 L 09/29/20 02:30 91 15 94 L 09/29/20 02:00 90 16 93 L 09/29/20 01:30 92 14 95 09/29/20 01:00 90 19 94 L 09/29/20 00:30 92 14 94 L 09/29/20 00:00 96 16 95 09/28/20 23:30 95 21 94 L 09/28/20 23:00 93 14 96 09/28/20 22:30 94 14 95 09/28/20 22:00 94 16 95 09/28/20 21:30 100 17 95 09/28/20 21:00 107 H 14 92 L 09/28/20 20:30 107 H 16 93 L 09/28/20 20:00 112 H 19 93 L 09/28/20 19:30 107 H 21 93 L 09/28/20 19:09 104 H 09/28/20 19:00 110 H 24 92 L 09/28/20 18:30 106 H 16 93 L 09/28/20 18:00 107 H 20 92 L 09/28/20 17:50 104 H 15 92 L 09/28/20 17:40 104 H 17 91 L 09/28/20 17:30 105 H 26 H 92 L 09/28/20 17:20 91 L 09/28/20 17:10 110 H 25 H 92 L 09/28/20 17:05 93 L 09/28/20 17:00 106 H 25 H 95 09/28/20 16:50 108 H 22 95 09/28/20 16:40 107 H 23 93 L 09/28/20 16:30 106 H 22 96 09/28/20 16:20 105 H 24 93 L 09/28/20 16:10 106 H 25 H 93 L 09/28/20 16:00 102 H 21 97 09/28/20 15:50 102 H 20 92 L 09/28/20 15:40 90 12 95 09/28/20 15:33 92 09/28/20 15:30 87 12 96 07/26/21 15:20 92 13 96 09/28/20 15:17 92 09/28/20 15:10 91 12 95 09/28/20 15:00 98.1 F 89 12 94 L 09/28/20 14:50 90 12 95 09/28/20 14:40 87 12 96 09/28/20 14:30 86 12 97 09/28/20 14:20 86 12 97 09/28/20 14:10 87 13 97 09/28/20 14:00 84 7 L 97 09/28/20 13:50 96.1 F L 82 9 L 97 09/28/20 13:45 98 Intake and Output 09/28/20 09/29/20 09/29/20 22:59 06:59 14:59 Intake Total 6196.944 3886.983 68.0 Output Total 920 620 43 Balance 96.792 1350.983 25.0 Intake: IV 440.9 984.0 68.0 ACETAMINOPHEN IV (For NPO 100 ) 1,000 mg In Empty Bag 1 bag @ 400 mls/hr IVPB Q6HR [facility] Rx#:[id number] Lactated Ringers 150 400 50 Nitro 4.5 12.0 1.5 Primacor 24.4 60.0 7.5 cardiac output 190 240 ceFAZolin 3 gm In Sodium 100 Chloride 0.9% 100 ml @ 200 mls/hr IVPB Q8HR [facility] Rx#:[id number] pressure bag 72 72 9 Intake, IV Titration 455.892 136.983 Amount ACETAMINOPHEN IV (For NPO 100 ) 1,000 mg In Empty Bag 1 bag @ 400 mls/hr IVPB Q6HR [facility] Rx#:[id number] Clevidipine Butyrate 25 54.201 67.3 mg In Empty Bag 1 bag @ 1 MG/HR 2 mls/hr IV .Q24H [facility] Rx#:[id number] Insulin Regular 100 unit 52.503 69.683 In Sodium Chloride 0.9% 100 ml @ Per Protocol IV .Q0M [facility] Rx#:[id number] Lactated Ringers 1,000 ml 200 @ 20 mls/hr IV .Q24H [facility] Rx#:[id number] Milrinone-D5w Pmx 20 mg 15.188 In Dextrose/Water 1 100ml .bag @ 0.3 MCG/KG/MIN 11. 25 mls/hr IV .Q8H54M [facility] Rx#:[id number] propofoL 1,000 mg In 34.0 Empty Bag 1 bag @ Titrate IV .Q0M [facility] Rx#: [id number] Oral 120 850 Output: Chest Tube Drainage 320 280 20 left pleural & 320 280 20 mediastinal Urine 600 340 23 Other: Voiding Method Indwelling Catheter Indwelling Catheter Weight 131.5 kg ABP, PAP, CO, CI - Last 8 Hours Arterial Blood Pressure 143/54 Arterial Blood Pressure 135/58 Arterial Blood Pressure 138/92 Arterial Blood Pressure 141/59 Arterial Blood Pressure 135/58 Arterial Blood Pressure 136/64 Arterial Blood Pressure 144/60 Arterial Blood Pressure 141/60 Arterial Blood Pressure 141/62 Arterial Blood Pressure 133/59 Arterial Blood Pressure 134/59 Arterial Blood Pressure 135/59 Arterial Blood Pressure 138/56 Arterial Blood Pressure 136/59 Pulmonary Artery Pressure 36/17 Pulmonary Artery Pressure 34/20 Pulmonary Artery Pressure 46/15 Pulmonary Artery Pressure 49/29 Pulmonary Artery Pressure 39/21 Pulmonary Artery Pressure 44/24 Pulmonary Artery Pressure 40/26 Pulmonary Artery Pressure 38/24 Pulmonary Artery Pressure 39/30 Pulmonary Artery Pressure 36/24 Pulmonary Artery Pressure 39/23 Pulmonary Artery Pressure 37/27 Pulmonary Artery Pressure 34/27 Pulmonary Artery Pressure 34/25 Cardiac Output 8.1 Cardiac Output 8.1 Cardiac Output 7.6 Cardiac Output 6.9 Cardiac Output 6.2 Cardiac Output 8 Cardiac Output 7.5 Cardiac Index 3.4 Cardiac Index 3.4 Cardiac Index 3.2 Cardiac Index 2.9 Cardiac Index 2.6 Cardiac Index 3.3 Cardiac Index 3.1 Results 09/29/20 04:08 09/29/20 04:08 Cardiac Enzymes 09/28/20 09/29/20 Range/Units 13:50 04:08 AST 44 52 (17-59) U/L Coagulation 09/28/20 Range/Units 13:50 PT 11.6 (9.0-12.0) sec APTT 24.5 (22.0-30.0) sec CBC 09/28/20 09/28/20 09/28/20 Range/Units 13:50 17:00 19:00 WBC 14.9 H 15.4 H 14.7 H (3.8-10.6) k/uL RBC 4.00 L 4.49 4.48 (4.30-5.90) m/uL Hgb 11.7 L D 13.3 13.3 (13.0-17.5) gm/dL Hct 36.0 L 40.3 40.4 (39.0-53.0) % Plt Count 152 161 167 (150-450) k/uL 09/29/20 Range/Units 04:08 WBC 17.6 H (3.8-10.6) k/uL RBC 4.29 L (4.30-5.90) m/uL Hgb 12.7 L (13.0-17.5) gm/dL Hct 38.4 L (39.0-53.0) % Plt Count 156 (150-450) k/uL Comprehensive Metabolic Panel 09/28/20 09/29/20 Range/Units 13:50 04:08 Sodium 136 L 136 L (137-145) mmol/L Potassium 4.2 4.3 (3.5-5.1) mmol/L Chloride 104 102 (98-107) mmol/L Carbon Dioxide 30 29 (22-30) mmol/L BUN 13 13 (9-20) mg/dL Creatinine 0.58 L 0.65 L (0.66-1.25) mg/dL Glucose 200 H 133 H (74-99) mg/dL Calcium 8.5 8.4 (8.4-10.2) mg/dL AST 44 52 (17-59) U/L ALT 34 33 (4-49) U/L Alkaline Phosphatase 50 50 (38-126) U/L Total Protein 4.9 L 5.4 L (6.3-8.2) g/dL Albumin 2.8 L 3.3 L (3.5-5.0) g/dL Current Medications Generic Name Dose Route Start Last Admin Trade Name Freq PRN Reason Stop Dose Admin Hydrocodone Bitart/Acetaminophen 2 each 09/29/20 01:14 09/29/20 04:14 Hydrocodone/Apap 5-325mg 1 Each Tab PO 2 each Q4HR PRN Administration Severe Pain Hydrocodone Bitart/Acetaminophen 1 each 09/29/20 01:14 Hydrocodone/Apap 5-325mg 1 Each Tab PO Q4HR PRN Moderate Pain Albuterol/Ipratropium 3 ml 09/28/20 13:41 Ipratropium-Albuterol 3 Ml Neb INHALATION RT-Q2H PRN Shortness Of Breath Or Wheezing Albuterol/Ipratropium 3 ml 09/28/20 20:00 09/28/20 19:06 Ipratropium-Albuterol 3 Ml Neb INHALATION 3 ml RT-QID [facility] Administration Ascorbic Acid 1,000 mg 09/29/20 09:00 Ascorbic Acid 500 Mg Tab PO DAILY [facility] Aspirin 325 mg 09/29/20 09:00 Aspirin [address] [facility] Atorvastatin Calcium 80 mg 09/28/20 21:00 09/28/20 20:18 Atorvastatin 80 Mg Tab PO 80 mg HS [facility] Administration Benzocaine/Menthol 1 each 09/28/20 13:41 Benzocaine/Menthol Lozeng 1 Each Lozenge MUCOUS MEM Q2H PRN Sore Throat Bisacodyl 10 mg 09/29/20 09:00 Bisacodyl 10 Mg Supp RECTAL DAILY PRN Constipation Budesonide/Formoterol Fumarate 2 puff 09/28/20 20:00 09/28/20 19:06 Symbicort 160-4.5 Mcg Inhaler INHALATION 2 puff RT-BID [facility] Administration Clopidogrel Bisulfate 75 mg 09/29/20 09:00 Clopidogrel 75 [address] Tab [address] [facility] Heparin Sodium (Porcine) 5,000 unit 09/28/20 16:00 09/28/20 23:59 Heparin Sodium,Porcine/Pf 5,000 Unit/0.5 Ml Syringe SQ 5,000 unit Q8HR [facility] Administration Hydralazine HCl 10 mg 09/28/20 13:41 Hydralazine Hcl 20 Mg/Ml 1 Ml Vial IVP Q1H PRN Blood Pressure - High Clevidipine 25 mg/ IV Solution 50 mls @ 2 mls/hr 09/28/20 13:41 09/29/20 06:38 IV 4 mg/hr .Q24H [facility] 8 mls/hr Administration Protocol 1 MG/HR Amiodarone HCl 150 mg/ 103 mls @ 618 mls/hr 09/28/20 13:41 Dextrose/Water IV .Q10M PRN A.FIB/FLUTTER Protocol Amiodarone HCl 360 mg/ 207.2 mls @ 34.533 mls/hr 09/28/20 13:41 Dextrose/Water IV .Q6H PRN A.FIB/FLUTTER Protocol 1 MG/MIN Amiodarone HCl 450 mg/ 250 mls @ 16.667 mls/hr 09/28/20 13:41 Dextrose/Water IV .Q15H PRN A.FIB/FLUTTER Protocol 0.5 MG/MIN Albumin Human 250 ml/ IV 250 mls @ 250 mls/hr 09/28/20 13:41 Solution IVPB 09/30/20 13:42 Q1HR PRN For Volume Lactated Ringer's 1,000 mls @ 20 mls/hr 09/28/20 13:41 09/28/20 14:25 Lactated Ringers IV 50 mls/hr .Q24H [facility] Administration Cefazolin Sodium 3 gm/ Sodium 100 mls @ 200 mls/hr 09/28/20 16:00 09/29/20 00:25 Chloride IVPB 09/29/20 08:29 200 mls/hr Q8HR [facility] Administration Calcium Gluconate 2 gm/ Sodium 120 mls @ 100 mls/hr 09/28/20 13:41 Chloride IVPB 10/28/20 13:42 ONCE PRN Ionized Calcium less than 4.4 Insulin Human Regular 100 unit 101 mls @ 0 mls/hr 09/28/20 15:00 09/29/20 06: 21 / Sodium Chloride IV 7.5 units/hr .Q0M [facility] 7.575 mls/hr Titration Protocol Per Protocol Milrinone Lactate/Dextrose 20 100 mls @ 3.75 mls/hr 09/28/20 21:00 09/28/20 21:24 mg/ IV Solution IV 0.2 mcg/kg/min .Q24H [facility] 7.5 mls/hr Administration 0.1 MCG/KG/MIN Ketorolac Tromethamine 15 mg 09/28/20 18:00 09/29/20 06:31 Ketorolac 15 Mg/Ml 1 Ml Vial IVP 10/01/20 15:04 15 mg Q6HR [facility] Administration Lisinopril 5 mg 09/29/20 09:00 Lisinopril 5 Mg Tab PO BID [facility] Magnesium Hydroxide 2,400 mg 09/29/20 09:00 Magnesium Hydroxide 2,400 Mg/10 Ml Cup PO BID PRN Constipation Metoclopramide HCl 10 mg 09/28/20 13:41 09/28/20 19:37 Metoclopramide 5 Mg/Ml 2 Ml Vial IVP 10 mg Q4H PRN Administration Nausea And Vomiting Metoprolol Tartrate 50 mg 09/29/20 09:00 Metoprolol Tartrate [address] Tab [address] [facility] Miscellaneous Information 1 each 09/28/20 13:41 Magnesium Replacement Protocol 1 Each [facility] MISCELLANE DAILY PRN Per Protocol Protocol Miscellaneous Information 1 each 09/28/20 13:41 Potassium Replacement Protocol 1 Each [facility] MISCELLANE DAILY PRN Per Protocol Protocol Miscellaneous Information 1 each 09/28/20 13:41 Phosphorus Replacement Protoco 1 Each [facility] MISCELLANE DAILY PRN Per Protocol Protocol Montelukast Sodium 10 mg 09/28/20 21:00 09/28/20 20:18 Montelukast 10 Mg Tab PO 10 mg HS [facility] Administration Pantoprazole Sodium 40 mg 09/29/20 09:00 Pantoprazole 40 Mg/10 Ml Vial IVP DAILY [facility] Senna/Docusate Sodium 2 each 09/29/20 21:00 Sennosides-Docusate Sodium 1 Each Tab PO HS [facility] Sodium Chloride 10 ml 09/28/20 21:00 09/28/20 20:18 Sodium Chloride 0.9% Flush 10 Ml Syringe IV 10 ml BID [facility] Administration Zinc Sulfate 220 mg 09/29/20 09:00 Zinc Sulfate 220 Mg Cap PO DAILY [facility] Intake and Output 09/28/20 09/29/20 09/29/20 22:59 06:59 14:59 Intake Total 5243.132 7903.983 68.0 Output Total 920 620 43 Balance 96.792 1350.983 25.0 Intake: IV 440.9 984.0 68.0 ACETAMINOPHEN IV (For NPO 100 ) 1,000 mg In Empty Bag 1 bag @ 400 mls/hr IVPB Q6HR [facility] Rx#:[id number] Lactated Ringers 150 400 50 Nitro 4.5 12.0 1.5 Primacor 24.4 60.0 7.5 cardiac output 190 240 ceFAZolin 3 gm In Sodium 100 Chloride 0.9% 100 ml @ 200 mls/hr IVPB Q8HR [facility] Rx#:[id number] pressure bag 72 72 9 Intake, IV Titration 455.892 136.983 Amount ACETAMINOPHEN IV (For NPO 100 ) 1,000 mg In Empty Bag 1 bag @ 400 mls/hr IVPB Q6HR [facility] Rx#:[id number] Clevidipine Butyrate 25 54.201 67.3 mg In Empty Bag 1 bag @ 1 MG/HR 2 mls/hr IV .Q24H [facility] Rx#:[id number] Insulin Regular 100 unit 52.503 69.683 In Sodium Chloride 0.9% 100 ml @ Per Protocol IV .Q0M [facility] Rx#:[id number] Lactated Ringers 1,000 ml 200 @ 20 mls/hr IV .Q24H [facility] Rx#:[id number] Milrinone-D5w Pmx 20 mg 15.188 In Dextrose/Water 1 100ml .bag @ 0.3 MCG/KG/MIN 11. 25 mls/hr IV .Q8H54M [facility] Rx#:[id number] propofoL 1,000 mg In 34.0 Empty Bag 1 bag @ Titrate IV .Q0M [facility] Rx#: [id number] Oral 120 850 Output: Chest Tube Drainage 320 280 20 left pleural & 320 280 20 mediastinal Urine 600 340 23 Other: Voiding Method Indwelling Catheter Indwelling Catheter Weight 131.5 kg 09/29/20 04:08 09/29/20 04:08
[2020-09-29 11:16] LABS: Glucose,Whole Blood 144 mg/dL (75-99)
[2020-09-29] MEDS: MILRINONE-D5W PMX 20 MG in DEXTROSE/WATER 1 100ML.BAG IV SCH ×2 (11:17→22:25)
[2020-09-29] MEDS: LACTATED RINGERS 1,000 ML IV SCH (11:19)
[2020-09-29] MEDS ORDERED: ACETAMINOPHEN TAB 325 MG TAB PO PRN (11:28)
--- NOTE | 2020-09-29 12:05 | P.CONS ---
History of Present Illness - History of Present Illness This is a pleasant 60 years old male with past medical history of Coronary Artery Disease (CAD), COPD, Diabetes Mellitus, Hyperlipidemia, Hypertension, Myocardial Infarction (GA), Osteoarthritis (OA), Pneumonia, Supraventricular Tachycardia (SVT) Acute hypoxic respiratory failure/covid in 2020, poss. pneumonia, NIDDM type II but not on medication anymore, arthritis bilateral hands, umbilical hernia, SOB w/exertion, supposed to have sleep study in future He was admitted for severe aortic valve stenosis status post aortic valve replacement, and status post CABG and LIU to the LAD Today is postoperative day #1 Sitting in chair comfortable with no distress. No chest pain or dyspnea. Occasional coughing. No bowel movement. He was still nothing by mouth in the morning He has history of diabetes and he was off medication for a while, his back on metformin 500 mg twice daily as well as Lantus 10 units daily Currently kept on insulin drip at 7.5 units per hour He is hemodynamically stable Has mild leukocytosis at 17.6 K, sodium 136, creatinine normal. Liver enzymes not elevated. Sugar controlled and 120s to 140s Review of Systems CONSTITUTIONAL: No fever, no malaise, no fatigue. HEENT: No recent visual problems or hearing problems. Denied any sore throat. CARDIOVASCULAR: No orthopnea, PND, no palpitations, no syncope. PULMONARY: No shortness of breath, no cough, no hemoptysis. GASTROINTESTINAL: No diarrhea, no nausea, no vomiting, no abdominal pain. Normoactive bowel sounds. NEUROLOGICAL: No headaches, no weakness, no numbness. HEMATOLOGICAL: Denies any bleeding or petechiae. GENITOURINARY: Denies any burning micturition, frequency, or urgency. MUSCULOSKELETAL/RHEUMATOLOGICAL: Denies any joint pain, swelling, or any muscle pain. ENDOCRINE: Denies any polyuria or polydipsia. Past Medical History Past Medical History: Coronary Artery Disease (CAD), COPD, Diabetes Mellitus, Hyperlipidemia, Hypertension, Myocardial Infarction (GA), Osteoarthritis (OA), Pneumonia, Supraventricular Tachycardia (SVT) Additional Past Medical History / Comment(s): Acute hypoxic respiratory failure/covid in 2020, poss. pneumonia, NIDDM type II but not on medication anymore, arthritis bilateral hands, umbilical hernia, SOB w/exertion, supposed to have sleep study in future Last Myocardial Infarction Date:: 12-23-16 History of Any Multi-Drug Resistant Organisms: None Reported Past Surgical History: Appendectomy, Cardiac Ablation, Heart Catheterization With Stent, Orthopedic Surgery Additional Past Surgical History / Comment(s): Cardiac ablation for SVT, R carotid endarterectomy, bilateral carpal tunnel releases, colonoscopies/benign polyps. Past Anesthesia/Blood Transfusion Reactions: No Reported Reaction Additional Past Anesthesia/Blood Transfusion Reaction / Comm: Pt has claustrophobia. no hx. blood transfusion Date of Last Stent Placement:: 2018 Smoking Status: Former smoker - Past Family History Father Brother(s) Family Medical History: Cancer Additional Family Medical History / Comment(s): Father from colon cancer at the age of 63 yrs. Brother had colon cancer with surgical removal. Mother Family Medical History: Coronary Artery Disease (CAD), Diabetes Mellitus, Myocardial Infarction (GA) Additional Family Medical History / Comment(s): Mother of a GA at the age of 79yrs. She had an AICD/pacer. Medications and Allergies Home Medications Medication Instructions Recorded Confirmed Type Aspirin 81 mg PO DAILY #30 chew 12/26/16 09/28/20 Rx Nitroglycerin Sl Tabs [Nitrostat] 0.4 mg SUBLINGUAL Q5M PRN #25 tab 12/26/16 09/28/20 Rx Ibuprofen [Motrin Ib] 400 - 600 mg PO Q6H PRN 09/08/18 09/28/20 History lisinopriL [Zestril] 10 mg PO BID 09/08/18 09/28/20 History carvediloL [Coreg*] 12.5 mg PO BID-W/MEALS #60 tab 05/04/19 09/28/20 Rx Albuterol Inhaler [Ventolin Hfa 2 puff INHALATION RT-QID PRN 04/29/20 09/28/20 History Inhaler] Atorvastatin [Lipitor] 80 mg PO HS 04/29/20 09/28/20 History hydroCHLOROthiazide [Hydrodiuril] 25 mg PO DAILY 04/29/20 09/28/20 History Acetaminophen Tab [Tylenol] 650 mg PO Q6HR PRN tab 05/01/20 09/28/20 Rx Ascorbic Acid [Vitamin C] 1,000 mg PO DAILY 30 Days #60 tab 05/01/20 09/28/20 Rx Zinc 50 mg PO DAILY 07/06/20 09/28/20 History Clopidogrel [Plavix] 75 mg PO HS 07/08/20 09/28/20 History Budesonide-Formot 160-4.5 Mcg 2 puff INHALATION BID 09/24/20 09/28/20 History [Symbicort 160-4.5 Mcg Inhaler] Montelukast [Singulair] 10 mg PO HS 09/24/20 09/28/20 History Potassium Gluconate 99 mg PO DAILY 09/24/20 09/28/20 History Spironolactone 25 mg PO DAILY 09/24/20 09/28/20 History Allergies Allergy/AdvReac Type Severity Reaction Status Date / Time No Known Allergies Allergy Verified 09/28/20 05:45 Physical Exam Vitals: Vital Signs Temp Pulse Resp Pulse Ox 09/29/20 07:00 97 24 92 L 09/29/20 06:30 98 25 H 93 L 09/29/20 06:00 108 H 23 94 L 09/29/20 05:30 96 22 91 L 09/29/20 05:00 89 16 94 L 09/29/20 04:30 90 21 93 L 09/29/20 04:00 89 17 92 L 09/29/20 03:30 88 16 92 L 09/29/20 03:00 90 15 92 L 09/29/20 02:30 91 15 94 L 09/29/20 02:00 90 16 93 L 09/29/20 01:30 92 14 95 09/29/20 01:00 90 19 94 L 09/29/20 00:30 92 14 94 L 09/29/20 00:00 96 16 95 09/28/20 23:30 95 21 94 L 09/28/20 23:00 93 14 96 09/28/20 22:30 94 14 95 09/28/20 22:00 94 16 95 09/28/20 21:30 100 17 95 09/28/20 21:00 107 H 14 92 L 09/28/20 20:30 107 H 16 93 L 09/28/20 20:00 112 H 19 93 L 09/28/20 19:30 107 H 21 93 L 09/28/20 19:09 104 H 09/28/20 19:00 110 H 24 92 L 09/28/20 18:30 106 H 16 93 L 09/28/20 18:00 107 H 20 92 L 09/28/20 17:50 104 H 15 92 L 09/28/20 17:40 104 H 17 91 L 09/28/20 17:30 105 H 26 H 92 L 09/28/20 17:20 91 L 09/28/20 17:10 110 H 25 H 92 L 09/28/20 17:05 93 L 09/28/20 17:00 106 H 25 H 95 09/28/20 16:50 108 H 22 95 09/28/20 16:40 107 H 23 93 L 09/28/20 16:30 106 H 22 96 09/28/20 16:20 105 H 24 93 L 09/28/20 16:10 106 H 25 H 93 L 09/28/20 16:00 102 H 21 97 09/28/20 15:50 102 H 20 92 L 09/28/20 15:40 90 12 95 09/28/20 15:33 92 09/28/20 15:30 87 12 96 09/28/20 15:20 92 13 96 09/28/20 15:17 92 09/28/20 15:10 91 12 95 09/28/20 15:00 98.1 F 89 12 94 L 09/28/20 14:50 90 12 95 09/28/20 14:40 87 12 96 09/28/20 14:30 86 12 97 09/28/20 14:20 86 12 97 09/28/20 14:10 87 13 97 09/28/20 14:00 84 7 L 97 09/28/20 13:50 96.1 F L 82 9 L 97 09/28/20 13:45 98 Intake and Output 09/28/20 09/29/20 09/29/20 22:59 06:59 14:59 Intake Total 4202.981 8999.983 68.0 Output Total 920 620 43 Balance 96.792 1350.983 25.0 Intake: IV 440.9 984.0 68.0 ACETAMINOPHEN IV (For NPO 100 ) 1,000 mg In Empty Bag 1 bag @ 400 mls/hr IVPB Q6HR [facility] Rx#:[id number] Lactated Ringers 150 400 50 Nitro 4.5 12.0 1.5 Primacor 24.4 60.0 7.5 cardiac output 190 240 ceFAZolin 3 gm In Sodium 100 Chloride 0.9% 100 ml @ 200 mls/hr IVPB Q8HR [facility] Rx#:[id number] pressure bag 72 72 9 Intake, IV Titration 455.892 136.983 Amount ACETAMINOPHEN IV (For NPO 100 ) 1,000 mg In Empty Bag 1 bag @ 400 mls/hr IVPB Q6HR [facility] Rx#:[id number] Clevidipine Butyrate 25 54.201 67.3 mg In Empty Bag 1 bag @ 1 MG/HR 2 mls/hr IV .Q24H [facility] Rx#:[id number] Insulin Regular 100 unit 52.503 69.683 In Sodium Chloride 0.9% 100 ml @ Per Protocol IV .Q0M [facility] Rx#:[id number] Lactated Ringers 1,000 ml 200 @ 20 mls/hr IV .Q24H [facility] Rx#:[id number] Milrinone-D5w Pmx 20 mg 15.188 In Dextrose/Water 1 100ml .bag @ 0.3 MCG/KG/MIN 11. 25 mls/hr IV .Q8H54M [facility] Rx#:[id number] propofoL 1,000 mg In 34.0 Empty Bag 1 bag @ Titrate IV .Q0M [facility] Rx#: [id number] Oral 120 850 Output: Chest Tube Drainage 320 280 20 left pleural & 320 280 20 mediastinal Urine 600 340 23 Other: Voiding Method Indwelling Catheter Indwelling Catheter Weight 131.5 kg ABP, PAP, CO, CI - Last 8 Hours Arterial Blood Pressure 143/54 Arterial Blood Pressure 135/58 Arterial Blood Pressure 138/92 Arterial Blood Pressure 141/59 Arterial Blood Pressure 135/58 Arterial Blood Pressure 136/64 Arterial Blood Pressure 144/60 Arterial Blood Pressure 141/60 Arterial Blood Pressure 141/62 Arterial Blood Pressure 133/59 Arterial Blood Pressure 134/59 Arterial Blood Pressure 135/59 Arterial Blood Pressure 138/56 Arterial Blood Pressure 136/59 Pulmonary Artery Pressure 36/17 Pulmonary Artery Pressure 34/20 Pulmonary Artery Pressure 46/15 Pulmonary Artery Pressure 49/29 Pulmonary Artery Pressure 39/21 Pulmonary Artery Pressure 44/24 Pulmonary Artery Pressure 40/26 Pulmonary Artery Pressure 38/24 Pulmonary Artery Pressure 39/30 Pulmonary Artery Pressure 36/24 Pulmonary Artery Pressure 39/23 Pulmonary Artery Pressure 37/27 Pulmonary Artery Pressure 34/27 Pulmonary Artery Pressure 34/25 Cardiac Output 8.1 Cardiac Output 8.1 Cardiac Output 7.6 Cardiac Output 6.9 Cardiac Output 6.2 Cardiac Output 8 Cardiac Output 7.5 Cardiac Index 3.4 Cardiac Index 3.4 Cardiac Index 3.2 Cardiac Index 2.9 Cardiac Index 2.6 Cardiac Index 3.3 Cardiac Index 3.1 GENERAL: The patient is alert and oriented x3, not in any acute distress. Well developed, well nourished. HEENT: Pupils are round and equally reacting to light. EOMI. No scleral icterus. No conjunctival pallor. Normocephalic, atraumatic. No pharyngeal erythema. No thyromegaly. -CARDIOVASCULAR: S1 and S2 present. No murmurs, rubs, or gallops. Surgical wound with a dressing, rest of the exam to surgical team PULMONARY: Chest is clear to auscultation, no wheezing or crackles. ABDOMEN: Soft, nontender, nondistended, normoactive bowel sounds. No palpable organomegaly. MUSCULOSKELETAL: No joint swelling or deformity. EXTREMITIES: No cyanosis, clubbing, or pedal edema. NEUROLOGICAL: Gross neurological examination did not reveal any focal deficits. SKIN: No rashes. no petechiae. Surgical wound with a dressing, deferred rest of exam to surgery team Results CBC & Chem 7: 09/29/20 04:08 09/29/20 04:08 Labs: Abnormal Lab Results - Last 24 Hours (Table) 09/24/20 09/28/20 09/28/20 Range/Units 09:00 08:22 10:14 WBC (3.8-10.6) k/uL RBC (4.30-5.90) m/uL Hgb (13.0-17.5) gm/dL Hct (39.0-53.0) % Neutrophils # (1.3-7.7) k/uL Monocytes # (0-1.0) k/uL ABG pH (7.35-7.45) ABG pCO2 47 H (35-45) mmHg ABG pO2 >420 H 262 H (83-108) mmHg ABG HCO3 30 H 29 H (21-25) mmol/L ABG Total CO2 31 H 30 H (19-24) mmol/L ABG O2 Saturation 100.0 H 100.0 H (94-97) % ABG Hematocrit (34.0-46.0) % ABG Ionized Calcium (4.5-5.3) mg/dL ABG Glucose 215 H 202 H (75-99) mg/dL ABG Lactic Acid 2.6 H* (0.5-1.6) mmol/L Hemoglobin 12.6 L (13.0-17.5) gm/dL Sodium (137-145) mmol/L Creatinine (0.66-1.25) mg/dL Glucose (74-99) mg/dL POC Glucose (mg/dL) (75-99) mg/dL Magnesium (1.6-2.3) mg/dL Total Protein (6.3-8.2) g/dL Albumin (3.5-5.0) g/dL Arterial Blood Glucose 215 H 202 H (75-99) mg/dL Crossmatch See Detail 09/28/20 09/28/20 09/28/20 Range/Units 10:51 11:23 11:54 WBC (3.8-10.6) k/uL RBC (4.30-5.90) m/uL Hgb (13.0-17.5) gm/dL Hct (39.0-53.0) % Neutrophils # (1.3-7.7) k/uL Monocytes # (0-1.0) k/uL ABG pH (7.35-7.45) ABG pCO2 47 H (35-45) mmHg ABG pO2 299 H 329 H 315 H (83-108) mmHg ABG HCO3 27 H 29 H 27 H (21-25) mmol/L ABG Total CO2 29 H 30 H 29 H (19-24) mmol/L ABG O2 Saturation 100.0 H 100.0 H 100.0 H (94-97) % ABG Hematocrit 32 L 32 L 32 L (34.0-46.0) % ABG Ionized Calcium 4.4 L 4.4 L 4.4 L (4.5-5.3) mg/dL ABG Glucose 167 H 183 H 184 H (75-99) mg/dL ABG Lactic Acid 2.2 H* 2.0 H 2.2 H* (0.5-1.6) mmol/L Hemoglobin 10.4 L 10.5 L 10.4 L (13.0-17.5) gm/dL Sodium (137-145) mmol/L Creatinine (0.66-1.25) mg/dL Glucose (74-99) mg/dL POC Glucose (mg/dL) (75-99) mg/dL Magnesium (1.6-2.3) mg/dL Total Protein (6.3-8.2) g/dL Albumin (3.5-5.0) g/dL Arterial Blood Glucose 167 H 183 H 184 H (75-99) mg/dL Crossmatch 09/28/20 09/28/20 09/28/20 Range/Units 13:00 13:50 13:50 WBC 14.9 H (3.8-10.6) k/uL RBC 4.00 L (4.30-5.90) m/uL Hgb 11.7 L D (13.0-17.5) gm/dL Hct 36.0 L (39.0-53.0) % Neutrophils # 12.3 H (1.3-7.7) k/uL Monocytes # (0-1.0) k/uL ABG pH (7.35-7.45) ABG pCO2 46 H (35-45) mmHg ABG pO2 >420 H (83-108) mmHg ABG HCO3 28 H (21-25) mmol/L ABG Total CO2 30 H (19-24) mmol/L ABG O2 Saturation 100.0 H (94-97) % ABG Hematocrit (34.0-46.0) % ABG Ionized Calcium (4.5-5.3) mg/dL ABG Glucose 226 H (75-99) mg/dL ABG Lactic Acid 1.7 H (0.5-1.6) mmol/L Hemoglobin 11.5 L (13.0-17.5) gm/dL Sodium 136 L (137-145) mmol/L Creatinine 0.58 L (0.66-1.25) mg/dL Glucose 200 H (74-99) mg/dL POC Glucose (mg/dL) (75-99) mg/dL Magnesium 3.1 H (1.6-2.3) mg/dL Total Protein 4.9 L (6.3-8.2) g/dL Albumin 2.8 L (3.5-5.0) g/dL Arterial Blood Glucose 226 H (75-99) mg/dL Crossmatch 09/28/20 09/28/20 09/28/20 Range/Units 13:52 14:07 14:57 WBC (3.8-10.6) k/uL RBC (4.30-5.90) m/uL Hgb (13.0-17.5) gm/dL Hct (39.0-53.0) % Neutrophils # (1.3-7.7) k/uL Monocytes # (0-1.0) k/uL ABG pH 7.33 L (7.35-7.45) ABG pCO2 57 H (35-45) mmHg ABG pO2 294 H (83-108) mmHg ABG HCO3 30 H (21-25) mmol/L ABG Total CO2 31 H (19-24) mmol/L ABG O2 Saturation 99.6 H (94-97) % ABG Hematocrit (34.0-46.0) % ABG Ionized Calcium (4.5-5.3) mg/dL ABG Glucose (75-99) mg/dL ABG Lactic Acid (0.5-1.6) mmol/L Hemoglobin (13.0-17.5) gm/dL Sodium (137-145) mmol/L Creatinine (0.66-1.25) mg/dL Glucose (74-99) mg/dL POC Glucose (mg/dL) 203 H 198 H (75-99) mg/dL Magnesium (1.6-2.3) mg/dL Total Protein (6.3-8.2) g/dL Albumin (3.5-5.0) g/dL Arterial Blood Glucose (75-99) mg/dL Crossmatch 09/28/20 09/28/20 09/28/20 Range/Units 16:17 17:00 17:02 WBC 15.4 H (3.8-10.6) k/uL RBC (4.30-5.90) m/uL Hgb (13.0-17.5) gm/dL Hct (39.0-53.0) % Neutrophils # 12.7 H (1.3-7.7) k/uL Monocytes # (0-1.0) k/uL ABG pH (7.35-7.45) ABG pCO2 (35-45) mmHg ABG pO2 (83-108) mmHg ABG HCO3 (21-25) mmol/L ABG Total CO2 (19-24) mmol/L ABG O2 Saturation (94-97) % ABG Hematocrit (34.0-46.0) % ABG Ionized Calcium (4.5-5.3) mg/dL ABG Glucose (75-99) mg/dL ABG Lactic Acid (0.5-1.6) mmol/L Hemoglobin (13.0-17.5) gm/dL Sodium (137-145) mmol/L Creatinine (0.66-1.25) mg/dL Glucose (74-99) mg/dL POC Glucose (mg/dL) 199 H 201 H (75-99) mg/dL Magnesium (1.6-2.3) mg/dL Total Protein (6.3-8.2) g/dL Albumin (3.5-5.0) g/dL Arterial Blood Glucose (75-99) mg/dL Crossmatch 09/28/20 09/28/20 09/28/20 Range/Units 17:59 18:59 19:00 WBC 14.7 H (3.8-10.6) k/uL RBC (4.30-5.90) m/uL Hgb (13.0-17.5) gm/dL Hct (39.0-53.0) % Neutrophils # 12.4 H (1.3-7.7) k/uL Monocytes # (0-1.0) k/uL ABG pH (7.35-7.45) ABG pCO2 (35-45) mmHg ABG pO2 (83-108) mmHg ABG HCO3 (21-25) mmol/L ABG Total CO2 (19-24) mmol/L ABG O2 Saturation (94-97) % ABG Hematocrit (34.0-46.0) % ABG Ionized Calcium (4.5-5.3) mg/dL ABG Glucose (75-99) mg/dL ABG Lactic Acid (0.5-1.6) mmol/L Hemoglobin (13.0-17.5) gm/dL Sodium (137-145) mmol/L Creatinine (0.66-1.25) mg/dL Glucose (74-99) mg/dL POC Glucose (mg/dL) 186 H 234 H (75-99) mg/dL Magnesium (1.6-2.3) mg/dL Total Protein (6.3-8.2) g/dL Albumin (3.5-5.0) g/dL Arterial Blood Glucose (75-99) mg/dL Crossmatch 09/28/20 09/28/20 09/28/20 Range/Units 20:09 21:18 21:56 WBC (3.8-10.6) k/uL RBC (4.30-5.90) m/uL Hgb (13.0-17.5) gm/dL Hct (39.0-53.0) % Neutrophils # (1.3-7.7) k/uL Monocytes # (0-1.0) k/uL ABG pH (7.35-7.45) ABG pCO2 (35-45) mmHg ABG pO2 (83-108) mmHg ABG HCO3 (21-25) mmol/L ABG Total CO2 (19-24) mmol/L ABG O2 Saturation (94-97) % ABG Hematocrit (34.0-46.0) % ABG Ionized Calcium (4.5-5.3) mg/dL ABG Glucose (75-99) mg/dL ABG Lactic Acid (0.5-1.6) mmol/L Hemoglobin (13.0-17.5) gm/dL Sodium (137-145) mmol/L Creatinine (0.66-1.25) mg/dL Glucose (74-99) mg/dL POC Glucose (mg/dL) 197 H 181 H 174 H (75-99) mg/dL Magnesium (1.6-2.3) mg/dL Total Protein (6.3-8.2) g/dL Albumin (3.5-5.0) g/dL Arterial Blood Glucose (75-99) mg/dL Crossmatch 09/28/20 09/29/20 09/29/20 Range/Units 22:59 00:07 01:07 WBC (3.8-10.6) k/uL RBC (4.30-5.90) m/uL Hgb (13.0-17.5) gm/dL Hct (39.0-53.0) % Neutrophils # (1.3-7.7) k/uL Monocytes # (0-1.0) k/uL ABG pH (7.35-7.45) ABG pCO2 (35-45) mmHg ABG pO2 (83-108) mmHg ABG HCO3 (21-25) mmol/L ABG Total CO2 (19-24) mmol/L ABG O2 Saturation (94-97) % ABG Hematocrit (34.0-46.0) % ABG Ionized Calcium (4.5-5.3) mg/dL ABG Glucose (75-99) mg/dL ABG Lactic Acid (0.5-1.6) mmol/L Hemoglobin (13.0-17.5) gm/dL Sodium (137-145) mmol/L Creatinine (0.66-1.25) mg/dL Glucose (74-99) mg/dL POC Glucose (mg/dL) 153 H 161 H 137 H (75-99) mg/dL Magnesium (1.6-2.3) mg/dL Total Protein (6.3-8.2) g/dL Albumin (3.5-5.0) g/dL Arterial Blood Glucose (75-99) mg/dL Crossmatch 09/29/20 09/29/20 09/29/20 Range/Units 02:02 03:08 04:08 WBC 17.6 H (3.8-10.6) k/uL RBC 4.29 L (4.30-5.90) m/uL Hgb 12.7 L (13.0-17.5) gm/dL Hct 38.4 L (39.0-53.0) % Neutrophils # 14.6 H (1.3-7.7) k/uL Monocytes # 1.4 H (0-1.0) k/uL ABG pH (7.35-7.45) ABG pCO2 (35-45) mmHg ABG pO2 (83-108) mmHg ABG HCO3 (21-25) mmol/L ABG Total CO2 (19-24) mmol/L ABG O2 Saturation (94-97) % ABG Hematocrit (34.0-46.0) % ABG Ionized Calcium (4.5-5.3) mg/dL ABG Glucose (75-99) mg/dL ABG Lactic Acid (0.5-1.6) mmol/L Hemoglobin (13.0-17.5) gm/dL Sodium (137-145) mmol/L Creatinine (0.66-1.25) mg/dL Glucose (74-99) mg/dL POC Glucose (mg/dL) 151 H 139 H (75-99) mg/dL Magnesium (1.6-2.3) mg/dL Total Protein (6.3-8.2) g/dL Albumin (3.5-5.0) g/dL Arterial Blood Glucose (75-99) mg/dL Crossmatch 09/29/20 09/29/20 09/29/20 Range/Units 04:08 04:08 05:10 WBC (3.8-10.6) k/uL RBC (4.30-5.90) m/uL Hgb (13.0-17.5) gm/dL Hct (39.0-53.0) % Neutrophils # (1.3-7.7) k/uL Monocytes # (0-1.0) k/uL ABG pH (7.35-7.45) ABG pCO2 (35-45) mmHg ABG pO2 (83-108) mmHg ABG HCO3 (21-25) mmol/L ABG Total CO2 (19-24) mmol/L ABG O2 Saturation (94-97) % ABG Hematocrit (34.0-46.0) % ABG Ionized Calcium (4.5-5.3) mg/dL ABG Glucose (75-99) mg/dL ABG Lactic Acid (0.5-1.6) mmol/L Hemoglobin (13.0-17.5) gm/dL Sodium 136 L (137-145) mmol/L Creatinine 0.65 L (0.66-1.25) mg/dL Glucose 133 H (74-99) mg/dL POC Glucose (mg/dL) 139 H 124 H (75-99) mg/dL Magnesium (1.6-2.3) mg/dL Total Protein 5.4 L (6.3-8.2) g/dL Albumin 3.3 L (3.5-5.0) g/dL Arterial Blood Glucose (75-99) mg/dL Crossmatch 09/29/20 09/29/20 09/29/20 Range/Units 06:20 07:10 08:18 WBC (3.8-10.6) k/uL RBC (4.30-5.90) m/uL Hgb (13.0-17.5) gm/dL Hct (39.0-53.0) % Neutrophils # (1.3-7.7) k/uL Monocytes # (0-1.0) k/uL ABG pH (7.35-7.45) ABG pCO2 (35-45) mmHg ABG pO2 (83-108) mmHg ABG HCO3 (21-25) mmol/L ABG Total CO2 (19-24) mmol/L ABG O2 Saturation (94-97) % ABG Hematocrit (34.0-46.0) % ABG Ionized Calcium (4.5-5.3) mg/dL ABG Glucose (75-99) mg/dL ABG Lactic Acid (0.5-1.6) mmol/L Hemoglobin (13.0-17.5) gm/dL Sodium (137-145) mmol/L Creatinine (0.66-1.25) mg/dL Glucose (74-99) mg/dL POC Glucose (mg/dL) 134 H 131 H 118 H (75-99) mg/dL Magnesium (1.6-2.3) mg/dL Total Protein (6.3-8.2) g/dL Albumin (3.5-5.0) g/dL Arterial Blood Glucose (75-99) mg/dL Crossmatch Assessment and Plan Assessment: Diabetes mellitus Hypertension Hyperlipidemia History of coronary artery disease Arthritis History of Covid infection on 04/2020 Plan: This is a pleasant 60 years old maleWith aortic valve stenosis status post aortic valve replacement and CABG Continue with insulin drip and monitor glucose closely Continue with 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 Continue same treatment. Continue with symptomatic treatment. Resume home medication. Monitor lytes and vitals. DVT and GI prophylaxis. Further recommendationsas per clinical course of the patient DVT prophylaxis: Subcutaneous heparin GI Prophylaxis: Ppi
[2020-09-29 12:18] LABS: Glucose,Whole Blood 127 mg/dL (75-99)
[2020-09-29 13:54] VITALS: BMI 40.4
[2020-09-29 14:12] LABS: Glucose,Whole Blood 116 mg/dL (75-99)
[2020-09-29 15:26] LABS: Glucose,Whole Blood 119 mg/dL (75-99)
[2020-09-29 16:24] LABS: Glucose,Whole Blood 116 mg/dL (75-99)
[2020-09-29 17:07] LABS: Glucose,Whole Blood 118 mg/dL (75-99)
[2020-09-29 18:09] LABS: Glucose,Whole Blood 124 mg/dL (75-99)
[2020-09-29 19:16] LABS: Glucose,Whole Blood 123 mg/dL (75-99)
[2020-09-29 20:19] LABS: Glucose,Whole Blood 125 mg/dL (75-99)
[2020-09-29 21:16] LABS: Glucose,Whole Blood 117 mg/dL (75-99)
[2020-09-29] MEDS: MONTELUKAST 10 MG TAB PO SCH (21:17)
[2020-09-29] MEDS: ATORVASTATIN 80 MG TAB PO SCH (21:17)
[2020-09-29] MEDS: SENNOSIDES-DOCUSATE SODIUM 1 EACH TAB PO SCH (21:19)
[2020-09-29 21:59] LABS: Glucose,Whole Blood 123 mg/dL (75-99)
[2020-09-29 22:20] LABS: ALT 22 U/L (4-49); AST 40 U/L (17-59); African American GFR (CKD) >90 (>60 ml/min/1.73 sqM); Albumin 3.1 g/dL (3.5-5.0); Alkaline Phosphatase 45 U/L (38-126); Anion Gap 7 mmol/L; Blood Urea Nitrogen 18 mg/dL (9-20); Calcium 8.4 mg/dL (8.4-10.2); Carbon Dioxide 27 mmol/L (22-30); Chloride 100 mmol/L (98-107); Glucose 119 mg/dL (74-99); Non-African American GFR(CKD) >90 (>60 ml/min/1.73 sqM); Potassium 4.1 mmol/L (3.5-5.1); Sodium 134 mmol/L (137-145); Total Bilirubin 0.7 mg/dL (0.2-1.3); Total Protein 5.2 g/dL (6.3-8.2)
[2020-09-29 22:54] LABS: Glucose,Whole Blood 113 mg/dL (75-99)
[2020-09-30 05:19] LABS: Ionized Calcium 4.8 mg/dL (4.5-5.3)
[2020-09-30 05:25] LABS: Basophils % (A) 0 %; Eosinophils # (A) 0.1 k/uL (0-0.7); Eosinophils % (A) 1 %; HCT 32.3 % (39.0-53.0); HGB 10.8 gm/dL (13.0-17.5); Lymphocytes # (A) 1.5 k/uL (1.0-4.8); Lymphocytes % (A) 10 %; MCH 29.8 pg (25.0-35.0); MCHC 33.5 g/dL (31.0-37.0); Mean Platelet Volume 8.2; Monocytes # (A) 1.2 k/uL (0-1.0); Monocytes % (A) 8 %; Neutrophils # (A) 11.4 k/uL (1.3-7.7); Neutrophils % (A) 78 %; Platelet Count 123 k/uL (150-450); RBC 3.63 m/uL (4.30-5.90); RDW 13.5 % (11.5-15.5); WBC 14.5 k/uL (3.8-10.6)
[2020-09-30 05:38] LABS: ALT 19 U/L (4-49); AST 36 U/L (17-59); African American GFR (CKD) >90 (>60 ml/min/1.73 sqM); Albumin 2.8 g/dL (3.5-5.0); Alkaline Phosphatase 43 U/L (38-126); Anion Gap 5 mmol/L; Blood Urea Nitrogen 21 mg/dL (9-20); Calcium 8.4 mg/dL (8.4-10.2); Carbon Dioxide 27 mmol/L (22-30); Chloride 100 mmol/L (98-107); Glucose 129 mg/dL (74-99); Non-African American GFR(CKD) >90 (>60 ml/min/1.73 sqM); Potassium 4.2 mmol/L (3.5-5.1); Sodium 132 mmol/L (137-145); Total Bilirubin 0.7 mg/dL (0.2-1.3)
[2020-09-30 05:57] LABS: Glucose,Whole Blood 138 mg/dL (75-99)
[2020-09-30 05:57] LABS: Glucose,Whole Blood 121 mg/dL (75-99)
[2020-09-30 05:57] LABS: Glucose,Whole Blood 116 mg/dL (75-99)
[2020-09-30 05:57] LABS: Glucose,Whole Blood 132 mg/dL (75-99)
[2020-09-30 05:57] LABS: Glucose,Whole Blood 131 mg/dL (75-99)
[2020-09-30 05:57] LABS: Glucose,Whole Blood 145 mg/dL (75-99)
[2020-09-30 06:18] LABS: Glucose,Whole Blood 124 mg/dL (75-99)
[2020-09-30] MEDS: PANTOPRAZOLE 40 MG TABLET PO SCH (06:30)
[2020-09-30] MEDS: KETOROLAC 15 MG/ML 1 ML VIAL IVP SCH ×4 (06:31→18:09)
[2020-09-30] MEDS: HEPARIN SODIUM,PORCINE/PF 5,000 UNIT/0.5 ML SYRINGE SQ SCH ×3 (06:51→17:03)
[2020-09-30 06:58] LABS: Glucose,Whole Blood 117 mg/dL (75-99)
--- NOTE | 2020-09-30 07:54 | P.PN ---
Subjective Progress Note Date: 09/30/20 Principal diagnosis: Aortic valve stenosis, coronary artery disease, reduced left ventricular systolic function with EF 40-45%. Previous medical history of CAD with myocardial infarction status post PCI to the LAD in 2016 and 2019, SVT status post ablation, hypertension, hyperlipidemia, diabetes, previous tobacco dependence, severe COPD, Covid infection in April 2020, questionable obstructive sleep apnea with plans for sleep study in the future, bilateral carotid artery stenosis status post right carotid endarterectomy with plans for future left carotid endarterectomy, and family history of coronary artery disease POD #2 aortic valve replacement with a 25 mm Inspiris bovine pericardial valve prosthesis, coronary artery bypass 1 with left internal mammary artery to the left anterior descending artery, epi-aortic ultrasonography, ligation of the left atrial appendage with a 35 mm AtriCure clip Patient's currently sitting up in a recliner in the intensive care unit in no acute distress. States post surgical pain is controlled on current medication regimen, denies shortness of breath. Remains in sinus rhythm, hemodynamically stable on low dose Primacor. Right internal jugular [place]/Cordis, right radial arterial line, mediastinal/left pleural chest tube all remain present. No new concerns. Objective - Vital Signs Vital signs: Vital Signs Temp 99.5 F 09/29/20 16:00 Pulse 89 09/30/20 04:00 Resp 17 09/30/20 04:00 BP 91/53 09/30/20 04:00 Pulse Ox 96 09/30/20 04:00 Intake & Output 09/29/20 09/30/20 09/30/20 18:59 06:59 18:59 Intake Total 6346.293 4071.539 33 Output Total 358 340 30 Balance 1162.626 760.539 3 Weight 131.5 kg 133.4 kg Intake: IV 777.0 456 33 Lactated Ringers 500 360 30 Nitro 1.5 Primacor 7.5 cardiac output 60 30 ceFAZolin 3 gm In Sodium 100 Chloride 0.9% 100 ml @ 200 mls/hr IVPB Q8HR [facility] Rx#:[id number] pressure bag 108 66 3 Intake, IV Titration 153.626 94.539 Amount Insulin Regular 100 unit 59.876 52.789 In Sodium Chloride 0.9% 100 ml @ Per Protocol IV .Q0M [facility] Rx#:[id number] Milrinone-D5w Pmx 20 mg 93.750 41.75 In Dextrose/Water 1 100ml .bag @ 0.1 MCG/KG/MIN 3. 75 mls/hr IV .Q24H [facility] Rx #:[id number] Oral 590 550 Output: Chest Tube Drainage 140 60 left pleural & 140 60 mediastinal Urine 218 280 30 Other: Voiding Method Indwelling Catheter Indwelling Catheter ABP, PAP, CO, CI - Last Documented Arterial Blood Pressure 106/52 Pulmonary Artery Pressure 34/15 Cardiac Output 6.2 Cardiac Index 2.6 - Exam CONSTITUTIONAL: Appears comfortable, cooperative, no acute distress RESPIRATORY: Lungs sounds diminished bilaterally. Respirations even, nonlabo red. Currently on 2 L nasal cannula with oxygen saturation 93%. Able to achieve 1250 mL on incentive spirometry. Strong cough. CARDIOVASCULAR: S1, S2 present. Regular rate and rhythm, sinus rhythm on telemetry. Sternum stable. Palpable peripheral pulses bilaterally. Trace generalized edema present. No calf pain or tenderness noted. Heart hugger in place with patient demonstrating appropriate use. Antiembolism stockings, SCDs present. GASTROINTESTINAL: Abdomen soft, nontender, nondistended. Hypoactive bowel sounds present 4 quadrants. Tolerating diet. Positive flatus GENITOURINARY: Avitia present draining clear, yellow urine. Output overnight 30-35 mL per hour INTEGUMENTARY: Skin is warm and dry with evidence of good perfusion. Anterior chest incision well approximated and covered with dry intact dressing. NEUROLOGIC: Cranial nerves II through XII intact MUSKULOSKELETAL: Able to move all extremities, strength equal bilaterally PSYCHIATRIC: Alert and oriented to person place and time, appropriate affect, intact judgment and insight INVASIVE LINES AND TUBES: Mediastinal/left pleural chest tubes present and connected to wall suction, no air leaks present, 30 mL serosanguineous drainage overnight, 300 mL since surgery. A/V epicardial pacemaker wires present, grounded. Right internal jugular [place]/Cordis, right radial arterial line present. Last CO/CI 6.2/2.6, PA 45/22, CVP 20. - Allied health notes Allied health notes reviewed: nursing - Labs CBC & Chem 7: 09/30/20 04:05 09/30/20 04:05 Labs: Abnormal Lab Results - Last 24 Hours (Table) 09/29/20 09/29/20 09/29/20 Range/Units 08:18 09:30 10:09 WBC (3.8-10.6) k/uL RBC (4.30-5.90) m/uL Hgb (13.0-17.5) gm/dL Hct (39.0-53.0) % Plt Count (150-450) k/uL Neutrophils # (1.3-7.7) k/uL Monocytes # (0-1.0) k/uL Sodium (137-145) mmol/L BUN (9-20) mg/dL Glucose (74-99) mg/dL POC Glucose (mg/dL) 118 H 125 H 132 H (75-99) mg/dL Total Protein (6.3-8.2) g/dL Albumin (3.5-5.0) g/dL 09/29/20 09/29/20 09/29/20 Range/Units 11:13 12:17 14:10 WBC (3.8-10.6) k/uL RBC (4.30-5.90) m/uL Hgb (13.0-17.5) gm/dL Hct (39.0-53.0) % Plt Count (150-450) k/uL Neutrophils # (1.3-7.7) k/uL Monocytes # (0-1.0) k/uL Sodium (137-145) mmol/L BUN (9-20) mg/dL Glucose (74-99) mg/dL POC Glucose (mg/dL) 144 H 127 H 116 H (75-99) mg/dL Total Protein (6.3-8.2) g/dL Albumin (3.5-5.0) g/dL 09/29/20 09/29/20 09/29/20 Range/Units 15:23 16:23 17:05 WBC (3.8-10.6) k/uL RBC (4.30-5.90) m/uL Hgb (13.0-17.5) gm/dL Hct (39.0-53.0) % Plt Count (150-450) k/uL Neutrophils # (1.3-7.7) k/uL Monocytes # (0-1.0) k/uL Sodium (137-145) mmol/L BUN (9-20) mg/dL Glucose (74-99) mg/dL POC Glucose (mg/dL) 119 H 116 H 118 H (75-99) mg/dL Total Protein (6.3-8.2) g/dL Albumin (3.5-5.0) g/dL 09/29/20 09/29/20 09/29/20 Range/Units 18:07 19:14 20:18 WBC (3.8-10.6) k/uL RBC (4.30-5.90) m/uL Hgb (13.0-17.5) gm/dL Hct (39.0-53.0) % Plt Count (150-450) k/uL Neutrophils # (1.3-7.7) k/uL Monocytes # (0-1.0) k/uL Sodium (137-145) mmol/L BUN (9-20) mg/dL Glucose (74-99) mg/dL POC Glucose (mg/dL) 124 H 123 H 125 H (75-99) mg/dL Total Protein (6.3-8.2) g/dL Albumin (3.5-5.0) g/dL 09/29/20 09/29/20 09/29/20 Range/Units 21:14 21:57 22:03 WBC (3.8-10.6) k/uL RBC (4.30-5.90) m/uL Hgb (13.0-17.5) gm/dL Hct (39.0-53.0) % Plt Count (150-450) k/uL Neutrophils # (1.3-7.7) k/uL Monocytes # (0-1.0) k/uL Sodium 134 L (137-145) mmol/L BUN (9-20) mg/dL Glucose 119 H (74-99) mg/dL POC Glucose (mg/dL) 117 H 123 H (75-99) mg/dL Total Protein 5.2 L (6.3-8.2) g/dL Albumin 3.1 L (3.5-5.0) g/dL 09/29/20 09/30/20 09/30/20 Range/Units 22:52 00:02 01:13 WBC (3.8-10.6) k/uL RBC (4.30-5.90) m/uL Hgb (13.0-17.5) gm/dL Hct (39.0-53.0) % Plt Count (150-450) k/uL Neutrophils # (1.3-7.7) k/uL Monocytes # (0-1.0) k/uL Sodium (137-145) mmol/L BUN (9-20) mg/dL Glucose (74-99) mg/dL POC Glucose (mg/dL) 113 H 121 H 138 H (75-99) mg/dL Total Protein (6.3-8.2) g/dL Albumin (3.5-5.0) g/dL 09/30/20 09/30/20 09/30/20 Range/Units 02:07 03:09 04:04 WBC (3.8-10.6) k/uL RBC (4.30-5.90) m/uL Hgb (13.0-17.5) gm/dL Hct (39.0-53.0) % Plt Count (150-450) k/uL Neutrophils # (1.3-7.7) k/uL Monocytes # (0-1.0) k/uL Sodium (137-145) mmol/L BUN (9-20) mg/dL Glucose (74-99) mg/dL POC Glucose (mg/dL) 145 H 131 H 132 H (75-99) mg/dL Total Protein (6.3-8.2) g/dL Albumin (3.5-5.0) g/dL 09/30/20 09/30/20 09/30/20 Range/Units 04:05 04:05 05:06 WBC 14.5 H (3.8-10.6) k/uL RBC 3.63 L (4.30-5.90) m/uL Hgb 10.8 L (13.0-17.5) gm/dL Hct 32.3 L (39.0-53.0) % Plt Count 123 L (150-450) k/uL Neutrophils # 11.4 H (1.3-7.7) k/uL Monocytes # 1.2 H (0-1.0) k/uL Sodium 132 L (137-145) mmol/L BUN 21 H (9-20) mg/dL Glucose 129 H (74-99) mg/dL POC Glucose (mg/dL) 116 H (75-99) mg/dL Total Protein 5.0 L (6.3-8.2) g/dL Albumin 2.8 L (3.5-5.0) g/dL 09/30/20 09/30/20 Range/Units 06:16 06:57 WBC (3.8-10.6) k/uL RBC (4.30-5.90) m/uL Hgb (13.0-17.5) gm/dL Hct (39.0-53.0) % Plt Count (150-450) k/uL Neutrophils # (1.3-7.7) k/uL Monocytes # (0-1.0) k/uL Sodium (137-145) mmol/L BUN (9-20) mg/dL Glucose (74-99) mg/dL POC Glucose (mg/dL) 124 H 117 H (75-99) mg/dL Total Protein (6.3-8.2) g/dL Albumin (3.5-5.0) g/dL - Imaging and Cardiology Chest x-ray: image reviewed Assessment and Plan Assessment: 1. Aortic valve stenosis, status post bioprosthetic aortic valve replacement 2. Coronary artery disease, status post single-vessel CABG 3. Reduced left ventricular systolic function with EF 40-45% 4. History of CAD with myocardial infarction status post PCI to the LAD in 2016 and 2019 5. History of SVT status post ablation 6. Hypertension 7. Hyperlipidemia, treated, cholesterol 110, LDL 54 8. Diabetes, metformin stopped in June due to diarrhea, preoperative hemoglobin A1c 10.3%, restarted on metformin with addition of 10 units Lantus started 09/25/2020 by primary care 9. Previous tobacco dependence 10. Severe COPD, preoperative FEV1 41% of predicted 11. Covid infection in April 2020, PCR negative 09/24/2020 12. Questionable obstructive sleep apnea with plans for sleep study in the [facility] 13. Bilateral carotid artery stenosis status post right carotid endarterectomy with plans for future left carotid endarterectomy 14. Family history of coronary artery disease Plan: 1. Continue aspirin, statin, Plavix, ASHELY inhibitor, beta dick therapy. Will increase beta dick therapy as tolerated 2. Will discontinue Primacor and [place] 4. Encourage incentive spirometry is 10 times every hour while awake. Bronchodilators per pulmonology 5. Increase activity, ambulate as tolerated. PT/OT/cardiac rehab consulted 6. Will monitor daily labs and x-rays. Electrolyte replacement per protocol. We'll give 20 mg IV push Lasix today 7. GI/DVT prophylaxis 8. Pain controlled current medication regimen 9. Insulin management per primary care service. Patient has uncontrolled diabetes with hyperglycemia, needs tight blood sugar control for proper sternal union and prevention of infection 10. Will discontinue chest tubes, [place]/Cordis, radial arterial line 11. Discontinue Avitia catheter. May bladder scan and straight cath for greater than 300 mL residual. 12. Strict accurate intake and output. Daily weights 13. Will place transfer orders for [address] [place] [address] cardiac stepdown unit. May transfer when bed available 14. More recommendations to follow Time with Patient: Greater than 30
[2020-09-30] MEDS: SYMBICORT 160-4.5 MCG INHALER INHALATION SCH ×2 (07:59→20:36)
[2020-09-30] MEDS: IPRATROPIUM-ALBUTEROL 3 ML NEB INHALATION SCH ×4 (07:59→20:35)
[2020-09-30] MEDS ORDERED: FUROSEMIDE 10 MG/ML 2 ML VIAL IV ONE (08:00)
[2020-09-30 08:03] LABS: Glucose,Whole Blood 181 mg/dL (75-99)
[2020-09-30 08:59] LABS: Glucose,Whole Blood 173 mg/dL (75-99)
--- NOTE | 2020-09-30 09:01 | XR ---
EXAMINATION TYPE: XR chest 1V portable DATE OF EXAM: 09/30/2020 COMPARISON: 09/29/2020 HISTORY: Postop TECHNIQUE: Single frontal view of the chest is obtained. FINDINGS: Right-sided [place]-Karl catheter and left-sided chest tube noted is patchy infiltrate bilate rally with small effusion. Heart mildly enlarged. No sizable pneumothorax. IMPRESSION: 1. Bilateral patchy infiltrate or atelectasis and small effusion stable. 2. Postsurgical changes.
[2020-09-30] MEDS: lisinopriL 5 MG TAB PO SCH ×2 (09:04→21:24)
[2020-09-30] MEDS: METOPROLOL TARTRATE 50 MG TAB PO SCH ×2 (09:04→21:24)
[2020-09-30] MEDS: ASCORBIC ACID 500 MG TAB PO SCH (09:04)
[2020-09-30] MEDS: CLOPIDOGREL 75 MG TAB PO SCH (09:04)
[2020-09-30] MEDS: ASPIRIN 325 MG TAB PO SCH (09:04)
[2020-09-30] MEDS: ZINC SULFATE 220 MG CAP PO SCH (09:04)
--- NOTE | 2020-09-30 09:23 | P.PN ---
Subjective HISTORY OF PRESENTING ILLNESS This is a pleasant 60-year-old male past medical history significant for coronary artery disease status post PCI to the LAD in 2017 and again in 2020, aortic stenosis, hypertension, dyslipidemia, cardiac ablation for SVT, peripheral vascular disease status post right carotid endarterectomy and COPD. He follows in the office with Dr. Lozano. He underwent bioprosthetic aortic valve replacement and LIU-LAD yesterday with Dr. Anthony. He is seen and examined sitting up in the chair in no acute distress. He is complaining of incisional pain when he moves or coughs. No exertional chest pain or shortness of breath. Telemetry reveals maintaining SR. EKG reveals sinus mechanism heart rate of 96 with left posterior fascicular block and right bundle branch block. Chest x-ray this morning reveals bilateral infiltrate and a small effusion. Laboratory data reviewed, WBC 17.6, hemoglobin 12.7, platelets 156, sodium 136, potassium 4.3, creatinine 0.65 and magnesium 2.2. Current daily cardiac medications include aspirin 325 mg daily, atorvastatin 80 mg daily, Plavix 75 mg daily, lisinopril 5 mg twice a day and metoprolol 50 mg BID. He continues to be on milrinone infusion with cardiac output of 6.9. 09/30/2020 Patient seen and examined sitting up in the recliner chair in no acute distress. He continues to have incisional site pain with coughing, deep breathing or movement. He denies exertional chest pain, shortness of breath or palpitations. Blood pressure 101/53 heart rate febrile maintaining a saturation. CVP seems to be slowly increasing however still normal. CT surgery is giving one dose of IV Lasix. Laboratory data reviewed, WBC 14.5, hemoglobin 10.8, platelets 123, sodium 132, potassium 4.2, creatinine 0.77. Chest x-ray today reveals bilateral patchy infiltrate in a stable small effusion. PHYSICAL EXAMINATION CONSTITUTIONAL: No apparent distress. HEENT: Head is normocephalic. Pupils are equal, round. Sclerae anicteric. Mucous membranes of the mouth are moist. No JVD. No carotid bruit. CHEST EXAMINATION: Lungs are clear to auscultation. No chest wall tenderness is noted on palpation or with deep breathing. HEART EXAMINATION: Regular rate and rhythm. S1, S2 heard. Systolic ejection murmur at the base, no gallops or rub. EXTREMITIES: 2+ peripheral pulses, no lower extremity edema and no calf tenderness. ASSESSMENT Aortic stenosis s/p bioprosthetic aortic valve replacement Coronary artery disease s/p LIU-LAD Hypertension Dyslipidemia Diabetes mellitus Peripheral vascular disease s/p right carotid endartectomy PLAN Agree with IV Lasix per CT surgery. Continue management per CT surgery. Increase activity as he can tolerate. Encourage incentive spirometer use. We will continue to follow and make recommendations accordingly. Nurse Practitioner note has been reviewed, I agree with a documented findings and plan of care. Patient was seen and examined. Objective - Vital Signs Vital signs: Vital Signs Temp 99.5 F 09/29/20 16:00 Pulse 96 09/30/20 08:11 Resp 18 09/30/20 07:00 BP 114/69 09/30/20 07:00 Pulse Ox 92 L 09/30/20 07:00 Intake & Output 09/29/20 09/30/20 09/30/20 18:59 06:59 18:59 Intake Total 3980.221 0280.539 33 Output Total 358 340 30 Balance 1162.626 760.539 3 Weight 131.5 kg 133.4 kg Intake: IV 777.0 456 33 Lactated Ringers 500 360 30 Nitro 1.5 Primacor 7.5 cardiac output 60 30 ceFAZolin 3 gm In Sodium 100 Chloride 0.9% 100 ml @ 200 mls/hr IVPB Q8HR [facility] Rx#:[id number] pressure bag 108 66 3 Intake, IV Titration 153.626 94.539 Amount Insulin Regular 100 unit 59.876 52.789 In Sodium Chloride 0.9% 100 ml @ Per Protocol IV .Q0M [facility] Rx#:[id number] Milrinone-D5w Pmx 20 mg 93.750 41.75 In Dextrose/Water 1 100ml .bag @ 0.1 MCG/KG/MIN 3. 75 mls/hr IV .Q24H [facility] Rx #:[id number] Oral 590 550 Output: Chest Tube Drainage 140 60 left pleural & 140 60 mediastinal Urine 218 280 30 Other: Voiding Method Indwelling Catheter Indwelling Catheter ABP, PAP, CO, CI - Last Documented Arterial Blood Pressure 101/53 Pulmonary Artery Pressure 35/18 Cardiac Output 6.2 Cardiac Index 2.6 - Labs CBC & Chem 7: 09/30/20 04:05 09/30/20 04:05 Labs: Abnormal Lab Results - Last 24 Hours (Table) 09/29/20 09/29/20 09/29/20 Range/Units 08:18 09:30 10:09 WBC (3.8-10.6) k/uL RBC (4.30-5.90) m/uL Hgb (13.0-17.5) gm/dL Hct (39.0-53.0) % Plt Count (150-450) k/uL Neutrophils # (1.3-7.7) k/uL Monocytes # (0-1.0) k/uL Sodium (137-145) mmol/L BUN (9-20) mg/dL Glucose (74-99) mg/dL POC Glucose (mg/dL) 118 H 125 H 132 H (75-99) mg/dL Total Protein (6.3-8.2) g/dL Albumin (3.5-5.0) g/dL 09/29/20 09/29/20 09/29/20 Range/Units 11:13 12:17 14:10 WBC (3.8-10.6) k/uL RBC (4.30-5.90) m/uL Hgb (13.0-17.5) gm/dL Hct (39.0-53.0) % Plt Count (150-450) k/uL Neutrophils # (1.3-7.7) k/uL Monocytes # (0-1.0) k/uL Sodium (137-145) mmol/L BUN (9-20) mg/dL Glucose (74-99) mg/dL POC Glucose (mg/dL) 144 H 127 H 116 H (75-99) mg/dL Total Protein (6.3-8.2) g/dL Albumin (3.5-5.0) g/dL 09/29/20 09/29/20 09/29/20 Range/Units 15:23 16:23 17:05 WBC (3.8-10.6) k/uL RBC (4.30-5.90) m/uL Hgb (13.0-17.5) gm/dL Hct (39.0-53.0) % Plt Count (150-450) k/uL Neutrophils # (1.3-7.7) k/uL Monocytes # (0-1.0) k/uL Sodium (137-145) mmol/L BUN (9-20) mg/dL Glucose (74-99) mg/dL POC Glucose (mg/dL) 119 H 116 H 118 H (75-99) mg/dL Total Protein (6.3-8.2) g/dL Albumin (3.5-5.0) g/dL 09/29/20 09/29/20 09/29/20 Range/Units 18:07 19:14 20:18 WBC (3.8-10.6) k/uL RBC (4.30-5.90) m/uL Hgb (13.0-17.5) gm/dL Hct (39.0-53.0) % Plt Count (150-450) k/uL Neutrophils # (1.3-7.7) k/uL Monocytes # (0-1.0) k/uL Sodium (137-145) mmol/L BUN (9-20) mg/dL Glucose (74-99) mg/dL POC Glucose (mg/dL) 124 H 123 H 125 H (75-99) mg/dL Total Protein (6.3-8.2) g/dL Albumin (3.5-5.0) g/dL 09/29/20 09/29/20 09/29/20 Range/Units 21:14 21:57 22:03 WBC (3.8-10.6) k/uL RBC (4.30-5.90) m/uL Hgb (13.0-17.5) gm/dL Hct (39.0-53.0) % Plt Count (150-450) k/uL Neutrophils # (1.3-7.7) k/uL Monocytes # (0-1.0) k/uL Sodium 134 L (137-145) mmol/L BUN (9-20) mg/dL Glucose 119 H (74-99) mg/dL POC Glucose (mg/dL) 117 H 123 H (75-99) mg/dL Total Protein 5.2 L (6.3-8.2) g/dL Albumin 3.1 L (3.5-5.0) g/dL 09/29/20 09/30/20 09/30/20 Range/Units 22:52 00:02 01:13 WBC (3.8-10.6) k/uL RBC (4.30-5.90) m/uL Hgb (13.0-17.5) gm/dL Hct (39.0-53.0) % Plt Count (150-450) k/uL Neutrophils # (1.3-7.7) k/uL Monocytes # (0-1.0) k/uL Sodium (137-145) mmol/L BUN (9-20) mg/dL Glucose (74-99) mg/dL POC Glucose (mg/dL) 113 H 121 H 138 H (75-99) mg/dL Total Protein (6.3-8.2) g/dL Albumin (3.5-5.0) g/dL 09/30/20 09/30/20 09/30/20 Range/Units 02:07 03:09 04:04 WBC (3.8-10.6) k/uL RBC (4.30-5.90) m/uL Hgb (13.0-17.5) gm/dL Hct (39.0-53.0) % Plt Count (150-450) k/uL Neutrophils # (1.3-7.7) k/uL Monocytes # (0-1.0) k/uL Sodium (137-145) mmol/L BUN (9-20) mg/dL Glucose (74-99) mg/dL POC Glucose (mg/dL) 145 H 131 H 132 H (75-99) mg/dL Total Protein (6.3-8.2) g/dL Albumin (3.5-5.0) g/dL 09/30/20 09/30/20 09/30/20 Range/Units 04:05 04:05 05:06 WBC 14.5 H (3.8-10.6) k/uL RBC 3.63 L (4.30-5.90) m/uL Hgb 10.8 L (13.0-17.5) gm/dL Hct 32.3 L (39.0-53.0) % Plt Count 123 L (150-450) k/uL Neutrophils # 11.4 H (1.3-7.7) k/uL Monocytes # 1.2 H (0-1.0) k/uL Sodium 132 L (137-145) mmol/L BUN 21 H (9-20) mg/dL Glucose 129 H (74-99) mg/dL POC Glucose (mg/dL) 116 H (75-99) mg/dL Total Protein 5.0 L (6.3-8.2) g/dL Albumin 2.8 L (3.5-5.0) g/dL 09/30/20 09/30/20 09/30/20 Range/Units 06:16 06:57 08:01 WBC (3.8-10.6) k/uL RBC (4.30-5.90) m/uL Hgb (13.0-17.5) gm/dL Hct (39.0-53.0) % Plt Count (150-450) k/uL Neutrophils # (1.3-7.7) k/uL Monocytes # (0-1.0) k/uL Sodium (137-145) mmol/L BUN (9-20) mg/dL Glucose (74-99) mg/dL POC Glucose (mg/dL) 124 H 117 H 181 H (75-99) mg/dL Total Protein (6.3-8.2) g/dL Albumin (3.5-5.0) g/dL
--- NOTE | 2020-09-30 09:58 | P.PN ---
Subjective Progress Note Date: 09/30/20 This is a 60-year-old white male patient with medical history of severe aortic stenosis, hypertension, hyperlipidemia, diabetes poultice type II, COPD, previous history of myocardial infarction, SVT status post cardiac ablation, carotid stenosis status post right carotid endarterectomy and history of COVID 19 infection in April 2020. Patient has been experiencing increased exertional dyspnea, and overall decreased functional performance even before COVID-19. Patient had a cardiac catheterization in July 2020 showing significant disease in the small nondominant RCA, patent stent to the LAD, and moderately severely impaired left ventricular systolic function. Transesophageal echocardiogram showed ejection fraction of 40-45%. The patient patient is an ex-smoker, his preop FEV1 was 40% of predicted or 1.5 L. Patient was referred to cardiothoracic surgery, and on 09/28/2020 he underwent aortic valve replacement with a 25 mm Inspra's bovine pericardial valve, and one vessel coronary artery bypass with LIU to the LAD, ligation of the left atrial appendage. Seen the patient in the intensive care unit following his surgery. He is currently self extubated, is currently on 100% nonrebreather mask. Hemodynamically he is stable, he is on lactated Ringer's at a rate of 50 ML per hour, and he is on Primacor is at 0.3 mics per kilo per minute, he is in sinus mechanism with a rate of 102 BPM, his PA pressures 53/31, his last cardiac output was 8.0 with a cardiac index of 3.4, he has a mediastinal and left pleural chest tube connected together, with small amount of serosanguineous output in the Pleur-evac, no evidence of air leak, chest x-ray has been reviewed, showing bilateral subsegmental perihilar atelectasis with small effusion. Postop blood gases showed pO2 of 294, pCO2 57, and pH of 7.33 this was done and FiO2 of 100%, the operative blood work shows a white blood cell count of 14.9, hemoglobin of 11.7, INR of 1.1, sodium of 136, dressing electrolytes were within normal limits, BUN 13 creatinine 0.58 On today's exam on 09/29/2020 patient is seen in the intensive care unit, he status post aortic valve replacement, and a single-vessel coronary artery bypass grafting. He is postoperative day #1. Patient self extubated yesterday shortly after arriving to the intensive care unit, however tolerated extubation quite well. This morning he is sitting up in the recliner, he is awake and alert, oriented 3, he is currently on 4 L of oxygen, breathing comfortably, his pulse ox is 92%. Hemodynamically she is stable, he is on small amount of milrinone at 0.3 mics per kilo per minute, clever [employer]x infusion at 5 mg per hour, insulin is a 7.5 units per hour, and lactated Ringer's at a rate of 50 ML per hour, he is in sinus mechanism, his pacemaker is on VVI backup mode at a rate of 60. His PA pressure is 30/14, cardiac output is 6.9, cardiac index is 2.9. His left p leural chest tube and mediastinal chest tubes are connected together, and there has been a total of 600 mL of thin serosanguineous output since surgery yesterday. Today's chest x-ray has been reviewed, no evidence of pneumothorax, some bibasilar atelectasis, and tiny pleural effusions. he does work on incentive spirometer, he is achieving 1250 on it today. Lung sounds are clear, he has had no acute events overnight, urine output is tapering down, and is down to 10 ML per hour this morning. CT surgery is following, and we'll defer on the decision about fluids and diuretics to CT surgery, today's labs have been reviewed, white blood cell count of 17.6, hemoglobin is 12.7, INR from yesterda y's labs was 1.1, sodium is 136, the rest of electrolytes were within normal limits, BUN of 13 creatinine 0.65. Patient is tolerating oral intake, no nausea vomiting or diarrhea, he is on insulin infusion for blood sugar control, less sugar was 118. On 09/30/2020 patient seen in follow-up in the intensive care unit. Today's postoperative day #2 status post aortic valve replacement and single-vessel coronary artery bypass grafting. he is doing very well, he is currently on 2 L of oxygen with a pulse ox of 94%, hemodynamically he is stable. He is breathing comfortably, he is working on incentive spirometer, he is receiving [id number] on it today. He is in sinus mechanism, no arrhythmias overnight, Primacor has been discontinued, he is currently on lactated Ringer's at 30 ML per hour, and insulin drip is at 10.5 units per hour, patient is being started on Levemir insulin this morning, urine output has been marginal, patient is several kilos positive net fluid balance since admission, and his bilateral lower extremities and bilateral upper extremities have mild nonpitting edema. His chest x-ray showed bilateral patchy infiltrates or atelectasis and small pleural effusion stable in appearance compared to yesterday's chest x-ray. He received a dose of Lasix per CT surgery this morning. His PA pressure is 36/17, CVP is 15, his cardiac output is 7.5, and cardiac index is 3.1. Left pleural and mediastinal chest tube put out a total of 300 mL of thin serous illness output in the last 24 hours. His labs have been reviewed, white blood cell count is 14.5, hemoglobin is 10.8, platelet count is 123, sodium is 132, dorsiflexion lites were within normal limits, BUN is 21 and creatinine 0.7. Patient stated at the bedside, and took couple steps from the bed to the chair, stable on his feet, however has not ambulated yet. Is tolerating oral intake, no nausea or vomiting or diarrhea, no abdominal pain. Objective - Vital Signs Vital signs: Vital Signs Temp 98.2 F 09/30/20 08:00 Pulse 96 09/30/20 09:30 Resp 16 09/30/20 09:30 BP 120/84 09/30/20 09:30 Pulse Ox 94 L 09/30/20 09:30 Intake & Output 09/29/20 09/30/20 09/30/20 18:59 06:59 18:59 Intake Total 7829.878 9261.539 452.187 Output Total 358 340 250 Balance 1162.626 760.539 202.187 Weight 131.5 kg 133.4 kg Intake: IV 777.0 456 101 Lactated Ringers 500 360 60 Nitro 1.5 Primacor 7.5 cardiac output 60 30 20 ceFAZolin 3 gm In Sodium 100 Chloride 0.9% 100 ml @ 200 mls/hr IVPB Q8HR [facility] Rx#:[id number] pressure bag 108 66 21 Intake, IV Titration 153.626 94.539 81.187 Amount Insulin Regular 100 unit 59.876 52.789 81.187 In Sodium Chloride 0.9% 100 ml @ Per Protocol IV .Q0M [facility] Rx#:[id number] Milrinone-D5w Pmx 20 mg 93.750 41.75 In Dextrose/Water 1 100ml .bag @ 0.1 MCG/KG/MIN 3. 75 mls/hr IV .Q24H [facility] Rx #:[id number] Oral 590 550 240 Lipid 30 Lactated Ringers 30 Output: Chest Tube Drainage 140 60 5 left pleural & 140 60 5 mediastinal Urine 218 280 245 Other: Voiding Method Indwelling Catheter Indwelling Catheter ABP, PAP, CO, CI - Last Documented Arterial Blood Pressure 144/57 Pulmonary Artery Pressure 39/19 Cardiac Output 7.5 Cardiac Index 3.1 - Exam GENERAL EXAM: Awake and alert, oriented 3, very pleasant 60-year-old obese white male, recliner, on 2 L of oxygen and the pulse ox of 92% HEAD: Normocephalic/atraumatic. EYES: Normal reaction of pupils, equal size. Conjunctiva pink, sclera white. NOSE: Clear with pink turbinates. THROAT: No erythema or exudates. NECK: No masses, no JVD, no thyroid enlargement, no adenopathy. CHEST: No chest wall deformity. Symmetrical expansion. Midsternal incision is clean dry and intact, chest tube sites including mediastinal and left pleural chest tube are clean dry and intact, connected to Pleur-evac with small amount of sanguinous output in the Pleur-evac, no evidence of air leak, connected to wall suction LUNGS: Equal air entry with no crackles, wheeze, rhonchi or dullness. CVS: Regular rate and rhythm, normal S1 and S2, no gallops, no murmurs, no rubs ABDOMEN: Soft, nontender. No hepatosplenomegaly, normal bowel sounds, no guarding or rigidity. EXTREMITIES: No clubbing, no edema, no cyanosis, 2+ pulses and upper and lower extremities. MUSCULOSKELETAL: Muscle strength and tone normal. SPINE: No scoliosis or deformity SKIN: No rashes CENTRAL NERVOUS SYSTEM: Awake and alert, oriented 3. focal deficits, tone is normal in all 4 extremities. - Labs CBC & Chem 7: 09/30/20 04:05 09/30/20 04:05 Labs: Abnormal Lab Results - Last 24 Hours (Table) 09/29/20 09/29/20 09/29/20 Range/Units 10:09 11:13 12:17 WBC (3.8-10.6) k/uL RBC (4.30-5.90) m/uL Hgb (13.0-17.5) gm/dL Hct (39.0-53.0) % Plt Count (150-450) k/uL Neutrophils # (1.3-7.7) k/uL Monocytes # (0-1.0) k/uL Sodium (137-145) mmol/L BUN (9-20) mg/dL Glucose (74-99) mg/dL POC Glucose (mg/dL) 132 H 144 H 127 H (75-99) mg/dL Total Protein (6.3-8.2) g/dL Albumin (3.5-5.0) g/dL 09/29/20 09/29/20 09/29/20 Range/Units 14:10 15:23 16:23 WBC (3.8-10.6) k/uL RBC (4.30-5.90) m/uL Hgb (13.0-17.5) gm/dL Hct (39.0-53.0) % Plt Count (150-450) k/uL Neutrophils # (1.3-7.7) k/uL Monocytes # (0-1.0) k/uL Sodium (137-145) mmol/L BUN (9-20) mg/dL Glucose (74-99) mg/dL POC Glucose (mg/dL) 116 H 119 H 116 H (75-99) mg/dL Total Protein (6.3-8.2) g/dL Albumin (3.5-5.0) g/dL 09/29/20 09/29/20 09/29/20 Range/Units 17:05 18:07 19:14 WBC (3.8-10.6) k/uL RBC (4.30-5.90) m/uL Hgb (13.0-17.5) gm/dL Hct (39.0-53.0) % Plt Count (150-450) k/uL Neutrophils # (1.3-7.7) k/uL Monocytes # (0-1.0) k/uL Sodium (137-145) mmol/L BUN (9-20) mg/dL Glucose (74-99) mg/dL POC Glucose (mg/dL) 118 H 124 H 123 H (75-99) mg/dL Total Protein (6.3-8.2) g/dL Albumin (3.5-5.0) g/dL 09/29/20 09/29/20 09/29/20 Range/Units 20:18 21:14 21:57 WBC (3.8-10.6) k/uL RBC (4.30-5.90) m/uL Hgb (13.0-17.5) gm/dL Hct (39.0-53.0) % Plt Count (150-450) k/uL Neutrophils # (1.3-7.7) k/uL Monocytes # (0-1.0) k/uL Sodium (137-145) mmol/L BUN (9-20) mg/dL Glucose (74-99) mg/dL POC Glucose (mg/dL) 125 H 117 H 123 H (75-99) mg/dL Total Protein (6.3-8.2) g/dL Albumin (3.5-5.0) g/dL 09/29/20 09/29/20 09/30/20 Range/Units 22:03 22:52 00:02 WBC (3.8-10.6) k/uL RBC (4.30-5.90) m/uL Hgb (13.0-17.5) gm/dL Hct (39.0-53.0) % Plt Count (150-450) k/uL Neutrophils # (1.3-7.7) k/uL Monocytes # (0-1.0) k/uL Sodium 134 L (137-145) mmol/L BUN (9-20) mg/dL Glucose 119 H (74-99) mg/dL POC Glucose (mg/dL) 113 H 121 H (75-99) mg/dL Total Protein 5.2 L (6.3-8.2) g/dL Albumin 3.1 L (3.5-5.0) g/dL 09/30/20 09/30/20 09/30/20 Range/Units 01:13 02:07 03:09 WBC (3.8-10.6) k/uL RBC (4.30-5.90) m/uL Hgb (13.0-17.5) gm/dL Hct (39.0-53.0) % Plt Count (150-450) k/uL Neutrophils # (1.3-7.7) k/uL Monocytes # (0-1.0) k/uL Sodium (137-145) mmol/L BUN (9-20) mg/dL Glucose (74-99) mg/dL POC Glucose (mg/dL) 138 H 145 H 131 H (75-99) mg/dL Total Protein (6.3-8.2) g/dL Albumin (3.5-5.0) g/dL 09/30/20 09/30/20 09/30/20 Range/Units 04:04 04:05 04:05 WBC 14.5 H (3.8-10.6) k/uL RBC 3.63 L (4.30-5.90) m/uL Hgb 10.8 L (13.0-17.5) gm/dL Hct 32.3 L (39.0-53.0) % Plt Count 123 L (150-450) k/uL Neutrophils # 11.4 H (1.3-7.7) k/uL Monocytes # 1.2 H (0-1.0) k/uL Sodium 132 L (137-145) mmol/L BUN 21 H (9-20) mg/dL Glucose 129 H (74-99) mg/dL POC Glucose (mg/dL) 132 H (75-99) mg/dL Total Protein 5.0 L (6.3-8.2) g/dL Albumin 2.8 L (3.5-5.0) g/dL 09/30/20 09/30/20 09/30/20 Range/Units 05:06 06:16 06:57 WBC (3.8-10.6) k/uL RBC (4.30-5.90) m/uL Hgb (13.0-17.5) gm/dL Hct (39.0-53.0) % Plt Count (150-450) k/uL Neutrophils # (1.3-7.7) k/uL Monocytes # (0-1.0) k/uL Sodium (137-145) mmol/L BUN (9-20) mg/dL Glucose (74-99) mg/dL POC Glucose (mg/dL) 116 H 124 H 117 H (75-99) mg/dL Total Protein (6.3-8.2) g/dL Albumin (3.5-5.0) g/dL 09/30/20 09/30/20 Range/Units 08:01 08:56 WBC (3.8-10.6) k/uL RBC (4.30-5.90) m/uL Hgb (13.0-17.5) gm/dL Hct (39.0-53.0) % Plt Count (150-450) k/uL Neutrophils # (1.3-7.7) k/uL Monocytes # (0-1.0) k/uL Sodium (137-145) mmol/L BUN (9-20) mg/dL Glucose (74-99) mg/dL POC Glucose (mg/dL) 181 H 173 H (75-99) mg/dL Total Protein (6.3-8.2) g/dL Albumin (3.5-5.0) g/dL Assessment and Plan Plan: Assessment: #1. Severe aortic valve stenosis, and coronary artery disease status post aortic valve replacement with a 25 mm bovine pericardial valve, and CABG 1 with LIU to the LAD, and ligation of the left atrial appendage, postoperative day #2 #2. Routine mechanical ventilator management, however patient self extubated and is currently in the 100% nonrebreather. Tolerating extubation quite well, on postoperative day #1, patient is awake and alert, breathing comfortably, currently on 2 L of oxygen #3. Coronary artery disease, with previous history of stenting #4. COPD, with preop FEV1 of 40% #5. Morbid obesity #6. Hypertension #7. Diabetes mellitus type 2 #8. Former smoker #9. Hyperlipidemia #10. History of CVA #11. Carotid artery stenosis, status post right carotid endarterectomy #12. History of COVID 19 infection in April 2020 Plan: Patient continues to do well and progress well FiO2 is down to 2 L Today's chest x-ray has been reviewed showing bibasilar atelectasis, and small pleural effusion Patient is generally swollen, and he is in positive fluid balance, Received a dose of IV Lasix Labs have been noted Continue nebulized bronchodilators 4 times a day Hemodynamically stable No arrhythmias No significant bleeding out of the chest tubes Anticipate removal of some of his indwelling catheters Ambulate the patient We'll continue to closely follow in intensive care unit I performed a history & physical examination of the patient and discussed their management with my nurse practitioner, Jennie Swift. I reviewed the nurse practitioner's note and agree with the documented findings and plan of care. Lung sounds are positive for dim breath sounds. The findings and the impression was discussed with the patient. I attest to the documentation by the nurse practitioner. Time with Patient: Less than 30
[2020-09-30 10:13] LABS: Glucose,Whole Blood 141 mg/dL (75-99)
[2020-09-30] MEDS: INSULIN REGULAR 100 UNIT in SODIUM CHLORIDE 0.9% 100 ML IV SCH (10:15)
[2020-09-30] MEDS: INSULIN DETEMIR (LEVEMIR) 100 UNIT/ML SYR SQ SCH (10:58)
[2020-09-30 11:02] LABS: Glucose,Whole Blood 132 mg/dL (75-99)
[2020-09-30 12:22] LABS: Glucose,Whole Blood 120 mg/dL (75-99)
--- NOTE | 2020-09-30 13:11 | P.PN ---
Subjective This is a pleasant 60 years old male with past medical history of Coronary Artery Disease (CAD), COPD, Diabetes Mellitus, Hyperlipidemia, Hypertension, Myocardial Infarction ([place]), Osteoarthritis (OA), Pneumonia, Supraventricular Tachycardia (SVT) Acute hypoxic respiratory failure/covid in 2020, poss. pneumonia, NIDDM type II but not on medication anymore, arthritis bilateral hands, umbilical hernia, SOB w/exertion, supposed to have sleep study in future He was admitted for severe aortic valve stenosis status post aortic valve replacement, and status post CABG and LIU to the LAD Today is postoperative day #1 Sitting in chair comfortable with no distress. No chest pain or dyspnea. Occasional coughing. No bowel movement. He was still nothing by mouth in the morning He has history of diabetes and he was off medication for a while, his back on metformin 500 mg twice daily as well as Lantus 10 units daily Currently kept on insulin drip at 7.5 units per hour He is hemodynamically stable Has mild leukocytosis at 17.6 K, sodium 136, creatinine normal. Liver enzymes not elevated. Sugar controlled and 120s to 140s 09/30/2020 Patient is awake and alert, he feels better generally. This pain at the eloise gical site but not completely resolved. He feels hungry and he wants to eat. No abdominal pain. No bowel movement yet. Hemodynamically stable. Blood pressure is borderline but asymptomatic. Leukoc ytosis stable and improving down to 14.5 K. Patient of the morning was still on insulin drip about 7 units per hour. With known to resume his home dose of Levemir 10 units daily surgical, of the insulin drip, and the meantime keep him on insulin sliding scale per protocol. Is also on metformin 500 mg twice a day at home which is on hold now Patient to continue on aspirin and Plavix, metoprolol and lisinopril Objective - Vital Signs Vital signs: Vital Signs Temp 98.2 F 09/30/20 08:00 Pulse 82 09/30/20 12:04 Resp 18 09/30/20 12:00 BP 94/59 09/30/20 12:00 Pulse Ox 95 09/30/20 12:00 Intake & Output 09/29/20 09/30/20 09/30/20 18:59 06:59 18:59 Intake Total 8491.350 3993.539 742.538 Output Total 358 340 545 Balance 1162.626 760.539 197.538 Weight 131.5 kg 133.4 kg Intake: IV 777.0 456 101 Lactated Ringers 500 360 60 Nitro 1.5 Primacor 7.5 cardiac output 60 30 20 ceFAZolin 3 gm In Sodium 100 Chloride 0.9% 100 ml @ 200 mls/hr IVPB Q8HR [facility] Rx#:[id number] pressure bag 108 66 21 Intake, IV Titration 153.626 94.539 101.538 Amount Insulin Regular 100 unit 59.876 52.789 101.538 In Sodium Chloride 0.9% 100 ml @ Per Protocol IV .Q0M [facility] Rx#:[id number] Milrinone-D5w Pmx 20 mg 93.750 41.75 In Dextrose/Water 1 100ml .bag @ 0.1 MCG/KG/MIN 3. 75 mls/hr IV .Q24H [facility] Rx #:[id number] Oral 590 550 480 Lipid 60 Lactated Ringers 60 Output: Chest Tube Drainage 140 60 25 left pleural & 140 60 25 mediastinal Urine 218 280 520 Other: Voiding Method Indwelling Catheter Indwelling Catheter Indwelling Catheter ABP, PAP, CO, CI - Last Documented Arterial Blood Pressure 144/57 Pulmonary Artery Pressure 39/19 Cardiac Output 7.5 Cardiac Index 3.1 - Exam GENERAL: The patient is alert and oriented x3, not in any acute distress. Well developed, well nourished. HEENT: Pupils are round and equally reacting to light. EOMI. No scleral icterus. No conjunctival pallor. Normocephalic, atraumatic. No pharyngeal erythema. No thyromegaly. -CARDIOVASCULAR: S1 and S2 present. No murmurs, rubs, or gallops. Surgical wound with a dressing, rest of the exam to surgical team PULMONARY: Chest is clear to auscultation, no wheezing or crackles. ABDOMEN: Soft, nontender, nondistended, normoactive bowel sounds. No palpable organomegaly. MUSCULOSKELETAL: No joint swelling or deformity. EXTREMITIES: No cyanosis, clubbing, or pedal edema. NEUROLOGICAL: Gross neurological examination did not reveal any focal deficits. SKIN: No rashes. no petechiae. Surgical wound with a dressing, deferred rest of exam to surgery team - Labs CBC & Chem 7: 09/30/20 04:05 09/30/20 04:05 Labs: Abnormal Lab Results - Last 24 Hours (Table) 09/29/20 09/29/20 09/29/20 Range/Units 14:10 15:23 16:23 WBC (3.8-10.6) k/uL RBC (4.30-5.90) m/uL Hgb (13.0-17.5) gm/dL Hct (39.0-53.0) % Plt Count (150-450) k/uL Neutrophils # (1.3-7.7) k/uL Monocytes # (0-1.0) k/uL Sodium (137-145) mmol/L BUN (9-20) mg/dL Glucose (74-99) mg/dL POC Glucose (mg/dL) 116 H 119 H 116 H (75-99) mg/dL Total Protein (6.3-8.2) g/dL Albumin (3.5-5.0) g/dL 09/29/20 09/29/20 09/29/20 Range/Units 17:05 18:07 19:14 WBC (3.8-10.6) k/uL RBC (4.30-5.90) m/uL Hgb (13.0-17.5) gm/dL Hct (39.0-53.0) % Plt Count (150-450) k/uL Neutrophils # (1.3-7.7) k/uL Monocytes # (0-1.0) k/uL Sodium (137-145) mmol/L BUN (9-20) mg/dL Glucose (74-99) mg/dL POC Glucose (mg/dL) 118 H 124 H 123 H (75-99) mg/dL Total Protein (6.3-8.2) g/dL Albumin (3.5-5.0) g/dL 09/29/20 09/29/20 09/29/20 Range/Units 20:18 21:14 21:57 WBC (3.8-10.6) k/uL RBC (4.30-5.90) m/uL Hgb (13.0-17.5) gm/dL Hct (39.0-53.0) % Plt Count (150-450) k/uL Neutrophils # (1.3-7.7) k/uL Monocytes # (0-1.0) k/uL Sodium (137-145) mmol/L BUN (9-20) mg/dL Glucose (74-99) mg/dL POC Glucose (mg/dL) 125 H 117 H 123 H (75-99) mg/dL Total Protein (6.3-8.2) g/dL Albumin (3.5-5.0) g/dL 09/29/20 09/29/20 09/30/20 Range/Units 22:03 22:52 00:02 WBC (3.8-10.6) k/uL RBC (4.30-5.90) m/uL Hgb (13.0-17.5) gm/dL Hct (39.0-53.0) % Plt Count (150-450) k/uL Neutrophils # (1.3-7.7) k/uL Monocytes # (0-1.0) k/uL Sodium 134 L (137-145) mmol/L BUN (9-20) mg/dL Glucose 119 H (74-99) mg/dL POC Glucose (mg/dL) 113 H 121 H (75-99) mg/dL Total Protein 5.2 L (6.3-8.2) g/dL Albumin 3.1 L (3.5-5.0) g/dL 09/30/20 09/30/20 09/30/20 Range/Units 01:13 02:07 03:09 WBC (3.8-10.6) k/uL RBC (4.30-5.90) m/uL Hgb (13.0-17.5) gm/dL Hct (39.0-53.0) % Plt Count (150-450) k/uL Neutrophils # (1.3-7.7) k/uL Monocytes # (0-1.0) k/uL Sodium (137-145) mmol/L BUN (9-20) mg/dL Glucose (74-99) mg/dL POC Glucose (mg/dL) 138 H 145 H 131 H (75-99) mg/dL Total Protein (6.3-8.2) g/dL Albumin (3.5-5.0) g/dL 09/30/20 09/30/20 09/30/20 Range/Units 04:04 04:05 04:05 WBC 14.5 H (3.8-10.6) k/uL RBC 3.63 L (4.30-5.90) m/uL Hgb 10.8 L (13.0-17.5) gm/dL Hct 32.3 L (39.0-53.0) % Plt Count 123 L (150-450) k/uL Neutrophils # 11.4 H (1.3-7.7) k/uL Monocytes # 1.2 H (0-1.0) k/uL Sodium 132 L (137-145) mmol/L BUN 21 H (9-20) mg/dL Glucose 129 H (74-99) mg/dL POC Glucose (mg/dL) 132 H (75-99) mg/dL Total Protein 5.0 L (6.3-8.2) g/dL Albumin 2.8 L (3.5-5.0) g/dL 09/30/20 09/30/20 09/30/20 Range/Units 05:06 06:16 06:57 WBC (3.8-10.6) k/uL RBC (4.30-5.90) m/uL Hgb (13.0-17.5) gm/dL Hct (39.0-53.0) % Plt Count (150-450) k/uL Neutrophils # (1.3-7.7) k/uL Monocytes # (0-1.0) k/uL Sodium (137-145) mmol/L BUN (9-20) mg/dL Glucose (74-99) mg/dL POC Glucose (mg/dL) 116 H 124 H 117 H (75-99) mg/dL Total Protein (6.3-8.2) g/dL Albumin (3.5-5.0) g/dL 09/30/20 09/30/20 09/30/20 Range/Units 08:01 08:56 10:12 WBC (3.8-10.6) k/uL RBC (4.30-5.90) m/uL Hgb (13.0-17.5) gm/dL Hct (39.0-53.0) % Plt Count (150-450) k/uL Neutrophils # (1.3-7.7) k/uL Monocytes # (0-1.0) k/uL Sodium (137-145) mmol/L BUN (9-20) mg/dL Glucose (74-99) mg/dL POC Glucose (mg/dL) 181 H 173 H 141 H (75-99) mg/dL Total Protein (6.3-8.2) g/dL Albumin (3.5-5.0) g/dL 09/30/20 09/30/20 Range/Units 11:01 12:21 WBC (3.8-10.6) k/uL RBC (4.30-5.90) m/uL Hgb (13.0-17.5) gm/dL Hct (39.0-53.0) % Plt Count (150-450) k/uL Neutrophils # (1.3-7.7) k/uL Monocytes # (0-1.0) k/uL Sodium (137-145) mmol/L BUN (9-20) mg/dL Glucose (74-99) mg/dL POC Glucose (mg/dL) 132 H 120 H (75-99) mg/dL Total Protein (6.3-8.2) g/dL Albumin (3.5-5.0) g/dL Assessment and Plan Assessment: Diabetes mellitus Hypertension Hyperlipidemia History of coronary artery disease Arthritis History of Covid infection on 04/2020 Plan: This is a pleasant 60 years old maleWith aortic valve stenosis status post aortic valve replacement and CABG Continue with insulin drip and monitor glucose closely Continue with amiodarone per news cameraman, Continue with aspirin and Plavix Continue with metoprolol and lisinopril Labs and medication were reviewed.. Continue same treatment. Continue with symptomatic treatment. Resume home medication. Monitor lytes and vitals. DVT and GI prophylaxis. Further recommendationsas per clinical course of the patient DVT prophylaxis: Subcutaneous heparin GI Prophylaxis: Ppi
[2020-09-30] MEDS: INSULIN ASPART (NovoLOG) 100 UNIT/ML VIAL SQ SCH ×3 (14:52→21:24)
[2020-09-30 16:44] LABS: Glucose,Whole Blood 211 mg/dL (75-99)
[2020-09-30] MEDS ORDERED: ARTIFICIAL TEARS-HYPROMELLOSE DROPS 15 ML BTL BOTH EYES PRN (17:29)
[2020-09-30 19:46] LABS: Glucose,Whole Blood 219 mg/dL (75-99)
[2020-09-30] MEDS: MONTELUKAST 10 MG TAB PO SCH (21:24)
[2020-09-30] MEDS: ATORVASTATIN 80 MG TAB PO SCH (21:24)
[2020-09-30] MEDS: SENNOSIDES-DOCUSATE SODIUM 1 EACH TAB PO SCH (21:24)
[2020-10-01] MEDS: HEPARIN SODIUM,PORCINE/PF 5,000 UNIT/0.5 ML SYRINGE SQ SCH ×4 (00:51→23:06)
[2020-10-01] MEDS: KETOROLAC 15 MG/ML 1 ML VIAL IVP SCH ×3 (00:51→12:55)
[2020-10-01 06:02] LABS: Glucose,Whole Blood 284 mg/dL (75-99)
[2020-10-01] MEDS: INSULIN DETEMIR (LEVEMIR) 100 UNIT/ML SYR SQ SCH (06:43)
[2020-10-01] MEDS: INSULIN ASPART (NovoLOG) 100 UNIT/ML VIAL SQ SCH ×4 (06:43→20:16)
[2020-10-01] MEDS: PANTOPRAZOLE 40 MG TABLET PO SCH (06:44)
[2020-10-01] MEDS: IPRATROPIUM-ALBUTEROL 3 ML NEB INHALATION SCH ×4 (07:30→19:29)
[2020-10-01] MEDS: SYMBICORT 160-4.5 MCG INHALER INHALATION SCH ×2 (07:30→19:29)
[2020-10-01 07:46] LABS: HCT 33.5 % (39.0-53.0); HGB 10.8 gm/dL (13.0-17.5); MCH 29.6 pg (25.0-35.0); MCHC 32.1 g/dL (31.0-37.0); MCV 92.2 fL (80.0-100.0); Mean Platelet Volume 8.7; Platelet Count 130 k/uL (150-450); RBC 3.63 m/uL (4.30-5.90); RDW 13.3 % (11.5-15.5); WBC 13.4 k/uL (3.8-10.6)
[2020-10-01 08:05] LABS: African American GFR (CKD) >90 (>60 ml/min/1.73 sqM); Anion Gap 5 mmol/L; Blood Urea Nitrogen 26 mg/dL (9-20); Calcium 8.6 mg/dL (8.4-10.2); Carbon Dioxide 29 mmol/L (22-30); Chloride 98 mmol/L (98-107); Glucose 242 mg/dL (74-99); Non-African American GFR(CKD) >90 (>60 ml/min/1.73 sqM); Potassium 4.3 mmol/L (3.5-5.1); Sodium 132 mmol/L (137-145)
[2020-10-01] MEDS: METOPROLOL TARTRATE 50 MG TAB PO SCH ×2 (09:22→20:16)
[2020-10-01] MEDS: lisinopriL 5 MG TAB PO SCH ×2 (09:22→20:16)
[2020-10-01] MEDS: CLOPIDOGREL 75 MG TAB PO SCH (09:22)
[2020-10-01] MEDS: ASCORBIC ACID 500 MG TAB PO SCH (09:22)
[2020-10-01] MEDS: ZINC SULFATE 220 MG CAP PO SCH (09:22)
[2020-10-01] MEDS: ASPIRIN 325 MG TAB PO SCH (09:22)
--- NOTE | 2020-10-01 09:22 | XR ---
EXAMINATION TYPE: XR chest 2V DATE OF EXAM: 10/01/2020 COMPARISON: 09/30/2020 TECHNIQUE: PA and lateral views submitted. HISTORY: Post cardiac surgery FINDINGS: Christopher-Karl catheter and chest tube have been removed. Postoperative changes with cardiomegaly and bila teral subsegmental infiltrate and small effusion. Pleural-based thickening noted bilaterally. Heart i s enlarged. No overt failure. IMPRESSION: 1. Subsegmental postoperative atelectasis favored over infiltrate with small bilateral effusions carol elate clinically. 2. No sizable pneumothorax post chest tube removal
--- NOTE | 2020-10-01 11:49 | P.PN ---
Subjective Progress Note Date: 10/01/20 Principal diagnosis: Aortic valve stenosis, coronary artery disease, reduced left ventricular systolic function with an EF 40-45%. Past medical history significant for coronary artery disease with myocardial infarction status post PCI to the LAD in 2016 and 2019, SVT status post ablation, hypertension, hyperlipidemia, diabetes, previous tobacco dependence, severe COPD, Covid infection in April 2020, questionable obstructive sleep apnea with plans for sleep study in the future, bilateral carotid artery stenosis status post right carotid endarterectomy with plans for future left carotid endarterectomy, and family history of coronary artery disease. POD #3 aortic valve replacement with a 25 mm Inspiris bovine pericardial valve prosthesis, coronary artery bypass 1 with left internal mammary artery to the left anterior descending artery, epi-aortic ultrasonography, ligation of the left atrial appendage with a 35 mm AtriCure clip. Postoperative acute blood loss anemia, an expected outcome post cardiac surgery due to hemodilution and cardiopulmonary bypass. The patient was seen in follow-up today 10/01/2020 at his bedside on the cardiac stepdown unit. Currently sitting up to the bedside chair. He is awake, alert and oriented 3 and is in no acute distress. Denies any complaints of pain or shortness of breath at this time and reports he feels much improved today than yesterday. He remained hemodynamically stable and is currently on no inotropic pressor support. Remote telemetry showing normal sinus rhythm heart rate 99 BPM. Oxygen saturations are 94% on room air and he is achieving 1250 mL on his incentive spirometry. Objective - Vital Signs Vital signs: Vital Signs Temp 97.7 F 10/01/20 04:00 Pulse 90 10/01/20 07:44 Resp 18 10/01/20 04:00 BP 113/69 10/01/20 04:00 Pulse Ox 94 L 10/01/20 04:00 Intake & Output 09/30/20 10/01/20 10/01/20 18:59 06:59 18:59 Intake Total 982.538 Output Total 745 500 Balance 237.538 -500 Weight 132.7 kg Intake: IV 101 Lactated Ringers 60 cardiac output 20 pressure bag 21 Intake, IV Titration 101.538 Amount Insulin Regular 100 unit 101.538 In Sodium Chloride 0.9% 100 ml @ Per Protocol IV .Q0M [facility] Rx#:[id number] Oral 720 Lipid 60 Lactated Ringers 60 Output: Chest Tube Drainage 25 left pleural & 25 mediastinal Urine 720 500 Other: Voiding Method Toilet Toilet # Voids 1 ABP, PAP, CO, CI - Last Documented Arterial Blood Pressure 144/57 Pulmonary Artery Pressure 39/19 Cardiac Output 7.5 Cardiac Index 3.1 - Exam CONSTITUTIONAL: Sitting up to the bedside chair on the cardiac stepdown unit, appears comfortable, cooperative, no apparent acute distress. HEENT: Neck is supple, no JVD, no lymphadenopathy. RESPIRATORY: Lungs sounds essentially clear throughout, diminished to his bi lateral bases. Respirations are symmetrical and nonlabored. Currently on room air with oxygen saturations 94%. Able to achieve 1250 mL on his incentive spirometry. Strong cough. CARDIOVASCULAR: Regular rhythm and rate. S1 and S2 present, negative for S3, gallop or murmur. Sternum is stable. Palpable peripheral pulses bilaterally, +1 edema to his bilateral lower extremities. No calf pain or tenderness noted. Heart hugger in place with patient demonstrating appropriate use. Knee-high SHREYA hose and sequential compression devices in place to his bilateral lower extremities. Remote telemetry showing normal sinus rhythm heart rate 99 BPM. GASTROINTESTINAL: Abdomen soft, nontender, nondistended. Active bowel sounds present 4 quadrants. Tolerating diet. Passing flatus. No guarding or rigidity. GENITOURINARY: Continues to void, 300 mL output in the last 8 hours. INTEGUMENTARY: Skin is warm and dry with no evidence of clubbing or cyanosis. Midline sternal incision clean dry and well approximated, covered with dry intact dressing. NEUROLOGIC: Cranial nerves II through XII intact. No focal deficits. MUSKULOSKELETAL: Able to move all extremities, strength equal bilaterally, generalized weakness. PSYCHIATRIC: Alert and oriented to person place and time, appropriate affect, intact judgment and insight. INVASIVE LINES AND TUBES: Atrial and ventricular epicardial pacemaker wires in place and grounded. - Labs CBC & Chem 7: 10/01/20 06:58 10/01/20 06:58 Labs: Abnormal Lab Results - Last 24 Hours (Table) 09/30/20 09/30/20 09/30/20 Range/Units 10:12 11:01 12:21 WBC (3.8-10.6) k/uL RBC (4.30-5.90) m/uL Hgb (13.0-17.5) gm/dL Hct (39.0-53.0) % Plt Count (150-450) k/uL Sodium (137-145) mmol/L BUN (9-20) mg/dL Glucose (74-99) mg/dL POC Glucose (mg/dL) 141 H 132 H 120 H (75-99) mg/dL 09/30/20 09/30/20 10/01/20 Range/Units 16:36 19:44 06:00 WBC (3.8-10.6) k/uL RBC (4.30-5.90) m/uL Hgb (13.0-17.5) gm/dL Hct (39.0-53.0) % Plt Count (150-450) k/uL Sodium (137-145) mmol/L BUN (9-20) mg/dL Glucose (74-99) mg/dL POC Glucose (mg/dL) 211 H 219 H 284 H (75-99) mg/dL 10/01/20 10/01/20 Range/Units 06:58 06:58 WBC 13.4 H (3.8-10.6) k/uL RBC 3.63 L (4.30-5.90) m/uL Hgb 10.8 L (13.0-17.5) gm/dL Hct 33.5 L (39.0-53.0) % Plt Count 130 L (150-450) k/uL Sodium 132 L (137-145) mmol/L BUN 26 H (9-20) mg/dL Glucose 242 H (74-99) mg/dL POC Glucose (mg/dL) (75-99) mg/dL Assessment and Plan Assessment: 1. Aortic valve stenosis, status post bioprosthetic aortic valve replacement 2. Coronary artery disease, status post single-vessel CABG with left internal mammary artery to left anterior descending coronary artery 3. Reduced left ventricular systolic function with an EF of 40-45% 4. History of coronary artery disease with myocardial infarction status post PCI to the LAD in 2016 and 2019 5. History of SVT status post ablation 6. Hypertension 7. Hyperlipidemia, treated, cholesterol 110, LDL 54 8. Poorly controlled diabetes mellitus type 2, metformin stopped in June due to diarrhea, preoperative hemoglobin A1c 10.3%, restarted on metformin with addition of 10 units Lantus started 09/25/2020 by primary care 9. Previous tobacco dependence 10. Severe COPD, preoperative FEV1 41% of predicted 11. Covid infection in April 2020, PCR negative 09/24/2020 12. Questionable obstructive sleep apnea with plans for sleep study in the future 13. Bilateral carotid artery stenosis status post right carotid endarterectomy with plans for future left carotid endarterectomy 14. Family history of coronary artery disease 15. Postoperative acute blood loss anemia, expected due to hemodilution and cardiopulmonary bypass Plan: 1. Continue aspirin, statin, Plavix, ASHELY inhibitor, beta dick therapy. Will increase beta dick therapy as tolerated. 2. Encourage incentive spirometry is 10 times every hour while awake. Bronchodilators per pulmonology. 4. Increase activity, ambulate as tolerated. PT/OT/cardiac rehab following. 5. Will monitor daily labs and chest x-rays. Electrolyte replacement per protocol. 6. GI/DVT prophylaxis 7. Pain controlled current medication regimen. Discontinue [place]. 8. Insulin management per primary care service. Patient has uncontrolled diabetes with hyperglycemia, needs tight blood sugar control for proper sternal union and prevention of infection 9. May bladder scan and straight cath for greater than 300 mL residual urine. 10. Continue to record strict accurate intake and output. Daily weights. 11. We will remove his atrial and ventricular epicardial pacemaker wires today. Bed rest for 1 hour post pacemaker wire removal. 12. More recommendations to follow based on patient's clinical course. Time with Patient: Greater than 30
[2020-10-01 12:51] LABS: Glucose,Whole Blood 237 mg/dL (75-99)
--- NOTE | 2020-10-01 14:42 | P.PN ---
Subjective Progress Note Date: 10/01/20 This is a 60-year-old white male patient with medical history of severe aortic stenosis, hypertension, hyperlipidemia, diabetes poultice type II, COPD, previous history of myocardial infarction, SVT status post cardiac ablation, carotid stenosis status post right carotid endarterectomy and history of COVID 19 infection in April 2020. Patient has been experiencing increased exertional dyspnea, and overall decreased functional performance even before COVID-19. Patient had a cardiac catheterization in July 2020 showing significant disease in the small nondominant RCA, patent stent to the LAD, and moderately severely impaired left ventricular systolic function. Transesophageal echocardiogram showed ejection fraction of 40-45%. The patient patient is an ex-smoker, his preop FEV1 was 40% of predicted or 1.5 L. Patient was referred to cardiothoracic surgery, and on 09/28/2020 he underwent aortic valve replacement with a 25 mm Inspra's bovine pericardial valve, and one vessel coronary artery bypass with LIU to the LAD, ligation of the left atrial appendage. Seen the patient in the intensive care unit following his surgery. He is currently self extubated, is currently on 100% nonrebreather mask. Hemodynamically he is stable, he is on lactated Ringer's at a rate of 50 ML per hour, and he is on Primacor is at 0.3 mics per kilo per minute, he is in sinus mechanism with a rate of 102 BPM, his PA pressures 53/31, his last cardiac output was 8.0 with a cardiac index of 3.4, he has a mediastinal and left pleural chest tube connected together, with small amount of serosanguineous output in the Pleur-evac, no evidence of air leak, chest x-ray has been reviewed, showing bilateral subsegmental perihilar atelectasis with small effusion. Postop blood gases showed pO2 of 294, pCO2 57, and pH of 7.33 this was done and FiO2 of 100%, the operative blood work shows a white blood cell count of 14.9, hemoglobin of 11.7, INR of 1.1, sodium of 136, dressing electrolytes were within normal limits, BUN 13 creatinine 0.58 On today's exam on 09/29/2020 patient is seen in the intensive care unit, he status post aortic valve replacement, and a single-vessel coronary artery bypass grafting. He is postoperative day #1. Patient self extubated yesterday shortly after arriving to the intensive care unit, however tolerated extubation quite well. This morning he is sitting up in the recliner, he is awake and alert, oriented 3, he is currently on 4 L of oxygen, breathing comfortably, his pulse ox is 92%. Hemodynamically she is stable, he is on small amount of milrinone at 0.3 mics per kilo per minute, clever [employer]x infusion at 5 mg per hour, insulin is a 7.5 units per hour, and lactated Ringer's at a rate of 50 ML per hour, he is in sinus mechanism, his pacemaker is on VVI backup mode at a rate of 60. His PA pressure is 30/14, cardiac output is 6.9, cardiac index is 2.9. His left p leural chest tube and mediastinal chest tubes are connected together, and there has been a total of 600 mL of thin serosanguineous output since surgery yesterday. Today's chest x-ray has been reviewed, no evidence of pneumothorax, some bibasilar atelectasis, and tiny pleural effusions. he does work on incentive spirometer, he is achieving 1250 on it today. Lung sounds are clear, he has had no acute events overnight, urine output is tapering down, and is down to 10 ML per hour this morning. CT surgery is following, and we'll defer on the decision about fluids and diuretics to CT surgery, today's labs have been reviewed, white blood cell count of 17.6, hemoglobin is 12.7, INR from yesterda y's labs was 1.1, sodium is 136, the rest of electrolytes were within normal limits, BUN of 13 creatinine 0.65. Patient is tolerating oral intake, no nausea vomiting or diarrhea, he is on insulin infusion for blood sugar control, less sugar was 118. On 09/30/2020 patient seen in follow-up in the intensive care unit. Today's postoperative day #2 status post aortic valve replacement and single-vessel coronary artery bypass grafting. he is doing very well, he is currently on 2 L of oxygen with a pulse ox of 94%, hemodynamically he is stable. He is breathing comfortably, he is working on incentive spirometer, he is receiving [id number] on it today. He is in sinus mechanism, no arrhythmias overnight, Primacor has been discontinued, he is currently on lactated Ringer's at 30 ML per hour, and insulin drip is at 10.5 units per hour, patient is being started on Levemir insulin this morning, urine output has been marginal, patient is several kilos positive net fluid balance since admission, and his bilateral lower extremities and bilateral upper extremities have mild nonpitting edema. His chest x-ray showed bilateral patchy infiltrates or atelectasis and small pleural effusion stable in appearance compared to yesterday's chest x-ray. He received a dose of Lasix per CT surgery this morning. His PA pressure is 36/17, CVP is 15, his cardiac output is 7.5, and cardiac index is 3.1. Left pleural and mediastinal chest tube put out a total of 300 mL of thin serous illness output in the last 24 hours. His labs have been reviewed, white blood cell count is 14.5, hemoglobin is 10.8, platelet count is 123, sodium is 132, dorsiflexion lites were within normal limits, BUN is 21 and creatinine 0.7. Patient stated at the bedside, and took couple steps from the bed to the chair, stable on his feet, however has not ambulated yet. Is tolerating oral intake, no nausea or vomiting or diarrhea, no abdominal pain. On 10/01/2020 patient seen in follow-up on selective care unit. He is status post aortic valve replacement and single-vessel coronary artery bypass grafting, today is postoperative day #3, he is awake and alert, in no acute distress, his chest tubes have been removed, his epicardial wires have been removed. His breathing comfortably, his pulse ox is 92% on room air, he is working on incentive spirometer and achieving 3467-0304 mL on incentive spirometer. Hemodynamically stable, today's chest x-ray has been reviewed showing subsegmental postoperative atelectasis with small bilateral pleural effusions, no sizable pneumothorax post chest tube removal. Today's labs have been reviewed, white blood cell count is 13.4, hemoglobin is 10.8, sodium is 132, dressing electrolytes and renal profile are unremarkable. He has had no acute events overnight. He received 1 dose of Lasix yesterday, he has produced 1.2 L in the urine output over the last 24 hours. He is in -260 mL fluid balance. Objective - Vital Signs Vital signs: Vital Signs Temp 98.9 F 10/01/20 08:00 Pulse 90 10/01/20 11:13 Resp 20 10/01/20 08:00 BP 129/68 10/01/20 08:00 Pulse Ox 92 L 10/01/20 08:00 Intake & Output 09/30/20 10/01/20 10/01/20 18:59 06:59 18:59 Intake Total 982.538 125 Output Total 745 500 Balance 237.538 -500 125 Weight 132.7 kg Intake: IV 101 Lactated Ringers 60 cardiac output 20 pressure bag 21 Intake, IV Titration 101.538 Amount Insulin Regular 100 unit 101.538 In Sodium Chloride 0.9% 100 ml @ Per Protocol IV .Q0M [facility] Rx#:[id number] Oral 720 125 Lipid 60 Lactated Ringers 60 Output: Chest Tube Drainage 25 left pleural & 25 mediastinal Urine 720 500 Other: Voiding Method Toilet Toilet # Voids 1 ABP, PAP, CO, CI - Last Documented Arterial Blood Pressure 144/57 Pulmonary Artery Pressure 39/19 Cardiac Output 7.5 Cardiac Index 3.1 - Exam GENERAL EXAM: Awake and alert, oriented 3, very pleasant 60-year-old obese white male, recliner, on room air, with a pulse ox of 92% HEAD: Normocephalic/atraumatic. EYES: Normal reaction of pupils, equal size. Conjunctiva pink, sclera white. NOSE: Clear with pink turbinates. THROAT: No erythema or exudates. NECK: No masses, no JVD, no thyroid enlargement, no adenopathy. CHEST: No chest wall deformity. Symmetrical expansion. Midsternal and pleural chest tubes have been removed, epicardial wires have been removed LUNGS: Equal air entry with no crackles, wheeze, rhonchi or dullness. CVS: Regular rate and rhythm, normal S1 and S2, no gallops, no murmurs, no rubs ABDOMEN: Soft, nontender. No hepatosplenomegaly, normal bowel sounds, no guarding or rigidity. EXTREMITIES: No clubbing, no edema, no cyanosis, 2+ pulses and upper and lower extremities. MUSCULOSKELETAL: Muscle strength and tone normal. SPINE: No scoliosis or deformity SKIN: No rashes CENTRAL NERVOUS SYSTEM: Awake and alert, oriented 3. focal deficits, tone is normal in all 4 extremities. - Labs CBC & Chem 7: 07/29/21 06:58 10/01/20 06:58 Labs: Abnormal Lab Results - Last 24 Hours (Table) 09/30/20 09/30/20 10/01/20 Range/Units 16:36 19:44 06:00 WBC (3.8-10.6) k/uL RBC (4.30-5.90) m/uL Hgb (13.0-17.5) gm/dL Hct (39.0-53.0) % Plt Count (150-450) k/uL Sodium (137-145) mmol/L BUN (9-20) mg/dL Glucose (74-99) mg/dL POC Glucose (mg/dL) 211 H 219 H 284 H (75-99) mg/dL 10/01/20 10/01/20 10/01/20 Range/Units 06:58 06:58 12:17 WBC 13.4 H (3.8-10.6) k/uL RBC 3.63 L (4.30-5.90) m/uL Hgb 10.8 L (13.0-17.5) gm/dL Hct 33.5 L (39.0-53.0) % Plt Count 130 L (150-450) k/uL Sodium 132 L (137-145) mmol/L BUN 26 H (9-20) mg/dL Glucose 242 H (74-99) mg/dL POC Glucose (mg/dL) 237 H (75-99) mg/dL Assessment and Plan Plan: Assessment: #1. Severe aortic valve stenosis, and coronary artery disease status post aortic valve replacement with a 25 mm bovine pericardial valve, and CABG 1 with LIU to the LAD, and ligation of the left atrial appendage, postoperative day #3 #2. Routine mechanical ventilator management, however patient self extubated and is currently in the 100% nonrebreather. Tolerating extubation quite well, on postoperative day #1, patient is awake and alert, breathing comfortably, currently on 2 L of oxygen #3. Coronary artery disease, with previous history of stenting #4. COPD, with preop FEV1 of 40% #5. Morbid obesity #6. Hypertension #7. Diabetes mellitus type 2 #8. Former smoker #9. Hyperlipidemia #10. History of CVA #11. Carotid artery stenosis, status post right carotid endarterectomy #12. History of COVID 19 infection in April 2020 Plan: Patient is doing very well on postoperative day #3 Breathing comfortably, he is on room air Vital signs are stable Chest tubes and wires have been removed Patient has been tolerating ambulation Encourage deep breathing and coughing and incentive spirometry use Possible discharge home in the next 24 hours I performed a history & physical examination of the patient and discussed their management with my nurse practitioner, Jennie Swift. I reviewed the nurse practitioner's note and agree with the documented findings and plan of care. Lung sounds are positive for dim breath sounds. The findings and the impression was discussed with the patient. I attest to the documentation by the nurse practitioner. Time with Patient: Less than 30
--- NOTE | 2020-10-01 14:57 | P.PN ---
Subjective This is a pleasant 60-year-old male past medical history significant for coronary artery disease status post PCI to the LAD in 2017 and again in 2020, aortic stenosis, hypertension, dyslipidemia, cardiac ablation for SVT, peripheral vascular disease status post right carotid endarterectomy and COPD. He follows in the office with Dr. Lozano. He underwent bioprosthetic aortic valve replacement and LIU-LAD yesterday with Dr. Anthony. He is seen and examined sitting up in the chair in no acute distress. No exertional chest pain or shortness of breath. Telemetry reveals maintaining SR. He is using his incentive spirometry. Laboratory data reviewed, WBC 13.3, hemoglobin 10.8, platelets 1:30, sodium 132, potassium 4.3, BUN 26, serum creatinine 0.8. Current daily cardiac medications include aspirin 325 mg daily, atorvastatin 80 mg daily, Plavix 75 mg daily, lisinopril 5 mg twice a day and metoprolol 50 mg BID, he was given one dose of IV Lasix 20 mg yesterday 09/30. PHYSICAL EXAMINATION CONSTITUTIONAL: No apparent distress. HEENT: Head is normocephalic. Pupils are equal, round. Sclerae anicteric. Mucous membranes of the mouth are moist. No JVD. No carotid bruit. CHEST EXAMINATION: Lungs are clear to auscultation. No chest wall tenderness is noted on palpation or with deep breathing. His atrial and ventricular epicardial pacemaker wires are present HEART EXAMINATION: Regular rate and rhythm. S1, S2 heard. Systolic ejection murmur at the base, no gallops or rub. EXTREMITIES: 2+ peripheral pulses, no lower extremity edema and no calf tenderness. ASSESSMENT Aortic stenosis s/p bioprosthetic aortic valve replacement Coronary artery disease s/p LIU-LAD Hypertension Dyslipidemia Diabetes mellitus Peripheral vascular disease s/p right carotid endartectomy PLAN Continue management per CT surgery. Increase activity as he can tolerate. Encourage incentive spirometer use. We will continue to follow and make recommendations accordingly. Nurse Practitioner note has been reviewed, I agree with a documented findings and plan of care. Patient was seen and examined. Objective - Vital Signs Vital signs: Vital Signs Temp 98.9 F 10/01/20 08:00 Pulse 89 10/01/20 12:00 Resp 20 10/01/20 12:00 BP 125/57 10/01/20 12:00 Pulse Ox 92 L 10/01/20 12:00 Intake & Output 09/30/20 10/01/20 10/01/20 18:59 06:59 18:59 Intake Total 982.538 125 Output Total 745 500 Balance 237.538 -500 125 Weight 132.7 kg Intake: IV 101 Lactated Ringers 60 cardiac output 20 pressure bag 21 Intake, IV Titration 101.538 Amount Insulin Regular 100 unit 101.538 In Sodium Chloride 0.9% 100 ml @ Per Protocol IV .Q0M [facility] Rx#:[id number] Oral 720 125 Lipid 60 Lactated Ringers 60 Output: Chest Tube Drainage 25 left pleural & 25 mediastinal Urine 720 500 Other: Voiding Method Toilet Toilet # Voids 1 ABP, PAP, CO, CI - Last Documented Arterial Blood Pressure 144/57 Pulmonary Artery Pressure 39/19 Cardiac Output 7.5 Cardiac Index 3.1 - Labs CBC & Chem 7: 10/01/20 06:58 10/01/20 06:58 Labs: Abnormal Lab Results - Last 24 Hours (Table) 09/30/20 09/30/20 10/01/20 Range/Units 16:36 19:44 06:00 WBC (3.8-10.6) k/uL RBC (4.30-5.90) m/uL Hgb (13.0-17.5) gm/dL Hct (39.0-53.0) % Plt Count (150-450) k/uL Sodium (137-145) mmol/L BUN (9-20) mg/dL Glucose (74-99) mg/dL POC Glucose (mg/dL) 211 H 219 H 284 H (75-99) mg/dL 10/01/20 10/01/20 10/01/20 Range/Units 06:58 06:58 12:17 WBC 13.4 H (3.8-10.6) k/uL RBC 3.63 L (4.30-5.90) m/uL Hgb 10.8 L (13.0-17.5) gm/dL Hct 33.5 L (39.0-53.0) % Plt Count 130 L (150-450) k/uL Sodium 132 L (137-145) mmol/L BUN 26 H (9-20) mg/dL Glucose 242 H (74-99) mg/dL POC Glucose (mg/dL) 237 H (75-99) mg/dL
[2020-10-01 17:10] LABS: Glucose,Whole Blood 203 mg/dL (75-99)
--- NOTE | 2020-10-01 18:56 | P.PN ---
Subjective This is a pleasant 60 years old male with past medical history of Coronary Artery Disease (CAD), COPD, Diabetes Mellitus, Hyperlipidemia, Hypertension, Myocardial Infarction (PA), Osteoarthritis (OA), Pneumonia, Supraventricular Tachycardia (SVT) Acute hypoxic respiratory failure/covid in 2020, poss. pneumonia, NIDDM type II but not on medication anymore, arthritis bilateral hands, umbilical hernia, SOB w/exertion, supposed to have sleep study in future He was admitted for severe aortic valve stenosis status post aortic valve replacement, and status post CABG and LIU to the LAD Today is postoperative day #1 Sitting in chair comfortable with no distress. No chest pain or dyspnea. Occasional coughing. No bowel movement. He was still nothing by mouth in the morning He has history of diabetes and he was off medication for a while, his back on metformin 500 mg twice daily as well as Lantus 10 units daily Currently kept on insulin drip at 7.5 units per hour He is hemodynamically stable Has mild leukocytosis at 17.6 K, sodium 136, creatinine normal. Liver enzymes not elevated. Sugar controlled and 120s to 140s 09/30/2020 Patient is awake and alert, he feels better generally. This pain at the eloise gical site but not completely resolved. He feels hungry and he wants to eat. No abdominal pain. No bowel movement yet. Hemodynamically stable. Blood pressure is borderline but asymptomatic. Leukoc ytosis stable and improving down to 14.5 K. Patient of the morning was still on insulin drip about 7 units per hour. With known to resume his home dose of Levemir 10 units daily surgical, of the insulin drip, and the meantime keep him on insulin sliding scale per protocol. Is also on metformin 500 mg twice a day at home which is on hold now Patient to continue on aspirin and Plavix, metoprolol and lisinopril 10/01/2020 Patient is clinically doing well. He is hemodynamically stable. He has mild leukocytosis trending down to 13.4 K compared to, 14.5 yesterday. Although not listed in his home medication he confirms to me today that he is taking long-acting insulin 10 units daily and metformin 500 mg daily. His sugars currently running more than 200, and he's only on Levemir 10 units daily. We're going to add metformin 500 mg Patient is clinically doing well Objective - Vital Signs Vital signs: Vital Signs Temp 98.9 F 10/01/20 08:00 Pulse 85 10/01/20 15:53 Resp 20 10/01/20 12:00 BP 125/57 10/01/20 12:00 Pulse Ox 92 L 10/01/20 12:00 Intake & Output 09/30/20 10/01/20 10/01/20 18:59 06:59 18:59 Intake Total 982.538 125 Output Total 745 500 300 Balance 237.538 -500 -175 Weight 132.7 kg Intake: IV 101 Lactated Ringers 60 cardiac output 20 pressure bag 21 Intake, IV Titration 101.538 Amount Insulin Regular 100 unit 101.538 In Sodium Chloride 0.9% 100 ml @ Per Protocol IV .Q0M DELFINO Rx#:[id number] Oral 720 125 Lipid 60 Lactated Ringers 60 Output: Chest Tube Drainage 25 left pleural & 25 mediastinal Urine 720 500 300 Other: Voiding Method Toilet Toilet # Voids 1 1 ABP, PAP, CO, CI - Last Documented Arterial Blood Pressure 144/57 Pulmonary Artery Pressure 39/19 Cardiac Output 7.5 Cardiac Index 3.1 - Exam GENERAL: The patient is alert and oriented x3, not in any acute distress. Well developed, well nourished. HEENT: Pupils are round and equally reacting to light. EOMI. No scleral icterus. No conjunctival pallor. Normocephalic, atraumatic. No pharyngeal erythema. No thyromegaly. -CARDIOVASCULAR: S1 and S2 present. No murmurs, rubs, or gallops. Surgical woun d with a dressing, rest of the exam to surgical team PULMONARY: Chest is clear to auscultation, no wheezing or crackles. ABDOMEN: Soft, nontender, nondistended, normoactive bowel sounds. No palpable organomegaly. MUSCULOSKELETAL: No joint swelling or deformity. EXTREMITIES: No cyanosis, clubbing, or pedal edema. NEUROLOGICAL: Gross neurological examination did not reveal any focal deficits. SKIN: No rashes. no petechiae. Surgical wound with a dressing, deferred rest of exam to surgery team - Labs CBC & Chem 7: 10/01/20 06:58 10/01/20 06:58 Labs: Abnormal Lab Results - Last 24 Hours (Table) 09/30/20 10/01/2021 Range/Units 19:44 06:00 06:58 WBC 13.4 H (3.8-10.6) k/uL RBC 3.63 L (4.30-5.90) m/uL Hgb 10.8 L (13.0-17.5) gm/dL Hct 33.5 L (39.0-53.0) % Plt Count 130 L (150-450) k/uL Sodium (137-145) mmol/L BUN (9-20) mg/dL Glucose (74-99) mg/dL POC Glucose (mg/dL) 219 H 284 H (75-99) mg/dL 10/01/20 10/01/20 10/01/20 Range/Units 06:58 12:17 17:04 WBC (3.8-10.6) k/uL RBC (4.30-5.90) m/uL Hgb (13.0-17.5) gm/dL Hct (39.0-53.0) % Plt Count (150-450) k/uL Sodium 132 L (137-145) mmol/L BUN 26 H (9-20) mg/dL Glucose 242 H (74-99) mg/dL POC Glucose (mg/dL) 237 H 203 H (75-99) mg/dL Assessment and Plan Assessment: Diabetes mellitus Hypertension Hyperlipidemia History of coronary artery disease Arthritis History of Covid infection on 04/2020 Plan: This is a pleasant 60 years old maleWith aortic valve stenosis status post aortic valve replacement and CABG Continue with insulin Levemir 10 units daily, add metformin 500 twice a day which are both home medication and monitor glucose closely Continue with amiodarone per [employer], Continue with aspirin and Plavix Continue with metoprolol and lisinopril Labs and medication were reviewed.. Continue same treatment. Continue with symptomatic treatment. Resume home medication. Monitor lytes and vitals. DVT and GI prophylaxis. Further recommendationsas per clinical course of the patient DVT prophylaxis: Subcutaneous heparin GI Prophylaxis: Ppi
[2020-10-01 19:44] LABS: Glucose,Whole Blood 188 mg/dL (75-99)
[2020-10-01] MEDS: metFORMIN 500 MG TAB PO SCH (20:16)
[2020-10-01] MEDS: ATORVASTATIN 80 MG TAB PO SCH (20:16)
[2020-10-01] MEDS: MONTELUKAST 10 MG TAB PO SCH (20:17)
[2020-10-01] MEDS: SENNOSIDES-DOCUSATE SODIUM 1 EACH TAB PO SCH (20:17)
[2020-10-02 06:01] LABS: Glucose,Whole Blood 225 mg/dL (75-99)
[2020-10-02] MEDS: INSULIN ASPART (NovoLOG) 100 UNIT/ML VIAL SQ SCH ×2 (06:36→12:36)
[2020-10-02] MEDS: INSULIN DETEMIR (LEVEMIR) 100 UNIT/ML SYR SQ SCH (06:36)
[2020-10-02] MEDS: PANTOPRAZOLE 40 MG TABLET PO SCH (06:37)
[2020-10-02] MEDS: metFORMIN 500 MG TAB PO SCH (06:37)
[2020-10-02 07:23] LABS: African American GFR (CKD) >90 (>60 ml/min/1.73 sqM); Anion Gap 5 mmol/L; Blood Urea Nitrogen 21 mg/dL (9-20); Calcium 8.4 mg/dL (8.4-10.2); Carbon Dioxide 29 mmol/L (22-30); Chloride 100 mmol/L (98-107); Glucose 207 mg/dL (74-99); Non-African American GFR(CKD) >90 (>60 ml/min/1.73 sqM); Potassium 4.1 mmol/L (3.5-5.1); Sodium 134 mmol/L (137-145)
[2020-10-02 07:35] LABS: HCT 31.8 % (39.0-53.0); HGB 10.5 gm/dL (13.0-17.5); MCH 30.1 pg (25.0-35.0); MCV 91.2 fL (80.0-100.0); Mean Platelet Volume 8.6; Platelet Count 152 k/uL (150-450); RBC 3.49 m/uL (4.30-5.90); RDW 13.3 % (11.5-15.5)
[2020-10-02] MEDS: ASCORBIC ACID 500 MG TAB PO SCH (08:51)
[2020-10-02] MEDS: lisinopriL 5 MG TAB PO SCH (08:51)
[2020-10-02] MEDS: CLOPIDOGREL 75 MG TAB PO SCH (08:51)
[2020-10-02] MEDS: ASPIRIN 325 MG TAB PO SCH (08:51)
[2020-10-02] MEDS: ZINC SULFATE 220 MG CAP PO SCH (08:51)
[2020-10-02] MEDS: HEPARIN SODIUM,PORCINE/PF 5,000 UNIT/0.5 ML SYRINGE SQ SCH (08:51)
[2020-10-02] MEDS: IPRATROPIUM-ALBUTEROL 3 ML NEB INHALATION SCH ×2 (08:53→13:10)
[2020-10-02] MEDS: SYMBICORT 160-4.5 MCG INHALER INHALATION SCH (08:54)
[2020-10-02] MEDS ORDERED: METOPROLOL TARTRATE 25 MG TAB PO SCH (09:00)
--- NOTE | 2020-10-02 09:50 | XR ---
EXAMINATION TYPE: XR chest 1V portable DATE OF EXAM: 10/02/2020 COMPARISON: 10/01/2020 HISTORY: Post CABG TECHNIQUE: Single frontal view of the chest is obtained. FINDINGS: Hyperinflation compatible COPD and there is postoperative change with cardiomegaly. Bilate ral infiltrate and small effusion. No pneumothorax. Biapical pleural thickening. IMPRESSION: COPD with cardiomegaly and bilateral infiltrate with small effusion.
--- NOTE | 2020-10-02 10:22 | P.DS ---
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 Aortic valve stenosis, status post bioprosthetic aortic valve replacement 2. Coronary artery disease, status post single-vessel CABG with left internal mammary artery to left anterior descending coronary artery 3. Reduced left ventricular systolic function with an EF of 40-45% 4. History of coronary artery disease with myocardial infarction status post PCI to the LAD in 2016 and 2019 5. History of SVT status post ablation 6. Hypertension 7. Hyperlipidemia, treated, cholesterol 110, LDL 54 8. Poorly controlled diabetes mellitus type 2, metformin stopped in June due to diarrhea, preoperative hemoglobin A1c 10.3%, restarted on metformin with addition of 10 units Lantus started 09/25/2020 by primary care 9. Previous tobacco dependence 10. Severe COPD, preoperative FEV1 41% of predicted 11. Covid infection in April 2020, PCR negative 09/24/2020 12. Questionable obstructive sleep apnea with plans for sleep study in the future 13. Bilateral carotid artery stenosis status post right carotid endarterectomy with plans for future left carotid endarterectomy 14. Family history of coronary artery disease 15. Postoperative acute blood loss anemia, expected due to hemodilution and c ardiopulmonary bypass PRINCIPAL PROCEDURE: 1. Aortic valve replacement with a 25 mm Inspiris bovine pericardial valve prosthesis. 2. Coronary artery bypass 1 with left internal mammary artery to left anterior descending coronary artery. 3. Epi-aortic ultrasonography. 4. Ligation of the left atrial appendage with a 35 mm Atricure clip. HISTORY OF PRESENT ILLNESS: This is a 60-year-old gentleman who follows with Dr. Deidre Maddox on an outpatient basis for his primary care needs. He also follows with [facility]. He is a past medical history significant for coronary artery disease with myocardial infarction status post PCI to the left anterior descending coronary artery in 2017 in 2019, hypertension, hyperlipidemia, history of SVT status post ablation, cardiomyopathy with reduced left ventricular systolic function with an ejection fraction of 40-45%, poorly controlled diabetes mellitus type 2 with a preoperat jacoby hemoglobin A1c of 10.3%, remote history of tobacco dependence, COPD with a recent FEV1 41% of predicted value, COVID-19 in April 2020, questionable obstructive sleep apnea, bilateral carotid artery stenosis status post right carotid endarterectomy with plans for future left carotid endarterectomy and family history of coronary artery disease. Recently, the patient has had complaints of progressive dyspnea on exertion as well as increased peripheral edema to his bilateral lower extremities. He has also had complaints of episodes of orthopnea. He was evaluated by Dr. Lozano from [facility] and on 07/08/2020 the patient underwent a cardiac catheterization and transesophageal echocardiogram. The cardiac catheterization demonstrated a patent stent to his left anterior descending coronary artery with mild disease in the left anterior descending coronary artery, a 60-70% stenosis to his PDA, evidence of severe aortic valve stenosis and moderately severely impaired left v entricular systolic function with a segmental wall motion abnormality with an ejection fraction estimated of 35-40%. The transesophageal echocardiogram results showed a normal left ventricular size with moderate global hypokinesis, tricuspid aortic valve with reduced opening by planimetry, 0.7 cm with a mean gradient of 30 mmHg consistent with moderate to severe aortic valve stenosis, mild mitral valve regurgitation and moderate tricuspid valve regurgitation. Due to the patient's recent symptomology and findings on his cardiac catheterization and transesophageal echocardiogram he was referred to the [facility] heart clinic for further evaluation and treatment recommendations. Subsequently, the patient was seen in the [facility] clinic and was evaluated by the structural heart team and it was decided due to his age he would be best served by surgical aortic valve replacement. Risks and benefits of surgical aortic valve replacement including the STS risk score were discussed with the patient and knowing and understanding these risks the patient wishes to proceed with the surgical procedure. HOSPITAL COURSE: The patient was admitted on 09/30/2020, brought to the preoperative area, prepared in the usual fashion and subsequently taken the operating room where Dr. Devin Anthony performed and aortic replacement with a 25 mm Inspiris bovine pericardial valve prosthesis, coronary artery bypass 1 with left internal mammary artery to left anterior descending coronary artery, epi- aortic ultrasonography and ligation of the left atrial appendage with a 35 mm Atricure clip. Upon completion of the surgery the patient was transferred to the cardiovascular intensive care unit where he was recovered and monitored hemodynamically. He was extubated, all lines, tubes and supportive drips were discontinued when appropriate and he was transferred to the cardiac stepdown unit for further monitoring and rehabilitation. His oxygen was titrated down, he continued work with physical and occupational therapy, he was tolerating an oral diet, his pain was well controlled and he was ready to be discharged home with [facility] on postoperative day #4. He has received verbal and written instructions regarding his medications, activity restrictions, signs and symptoms requiring physician out of location and his follow-up appointments. COMPLICATIONS: there were no postoperative complications. Patient Condition at Discharge: Stable Plan - Discharge Summary Discharge Rx Participant: Yes New Discharge Prescriptions: New Aspirin 325 mg PO DAILY #30 tab Sennosides-Docusate Sodium [Senokot-S] 2 each PO HS PRN tab PRN Reason: Constipation Insulin Detemir (Levemir) [Levemir] 10 unit SQ DAILY@0700 syr Furosemide [Lasix] 20 mg PO DIRECTED #5 tab Metoprolol Tartrate [Lopressor] 75 mg PO BID #120 tab Pantoprazole [Protonix] 40 mg PO AC-BRKFST #30 tablet. metFORMIN HCL [Glucophage] 750 mg PO BID-W/MEALS #60 tab Continue Ibuprofen [Motrin Ib] 400 - 600 mg PO Q6H PRN PRN Reason: Pain Albuterol Inhaler [Ventolin Hfa Inhaler] 2 puff INHALATION RT-QID PRN PRN Reason: Shortness Of Breath Atorvastatin [Lipitor] 80 mg PO HS Acetaminophen Tab [Tylenol] 650 mg PO Q6HR PRN tab PRN Reason: Mild Pain Or Fever > 100.5 Ascorbic Acid [Vitamin C] 1,000 mg PO DAILY 30 Days #60 tab Montelukast [Singulair] 10 mg PO HS Potassium Gluconate 99 mg PO DAILY Budesonide-Formot 160-4.5 Mcg [Symbicort 160-4.5 Mcg Inhaler] 2 puff INHALATION BID Zinc 50 mg PO DAILY Clopidogrel [Plavix] 75 mg PO HS Changed lisinopriL [Zestril] 5 mg PO BID #0 Discontinued Aspirin 81 mg PO DAILY #30 chew Nitroglycerin Sl Tabs [Nitrostat] 0.4 mg SUBLINGUAL Q5M PRN #25 tab PRN Reason: Chest Pain carvediloL [Coreg*] 12.5 mg PO BID-W/MEALS #60 tab hydroCHLOROthiazide [Hydrodiuril] 25 mg PO DAILY Spironolactone 25 mg PO DAILY Discharge Medication List Ibuprofen [Motrin Ib] 400 - 600 mg PO Q6H PRN 09/08/18 [History] Albuterol Inhaler [Ventolin Hfa Inhaler] 2 puff INHALATION RT-QID PRN 04/29/20 [History] Atorvastatin [Lipitor] 80 mg PO HS 04/29/20 [History] Acetaminophen Tab [Tylenol] 650 mg PO Q6HR PRN tab 05/01/20 [Rx] Ascorbic Acid [Vitamin C] 1,000 mg PO DAILY 30 Days #60 tab 05/01/20 [Rx] Zinc 50 mg PO DAILY 07/06/20 [History] Clopidogrel [Plavix] 75 mg PO HS 07/08/20 [History] Budesonide-Formot 160-4.5 Mcg [Symbicort 160-4.5 Mcg Inhaler] 2 puff INHALATION BID 09/24/20 [History] Montelukast [Singulair] 10 mg PO HS 09/24/20 [History] Potassium Gluconate 99 mg PO DAILY 09/24/20 [History] Aspirin 325 mg PO DAILY #30 tab 10/02/20 [Rx] Furosemide [Lasix] 20 mg PO DIRECTED #5 tab 10/02/20 [Rx] Insulin Detemir (Levemir) [Levemir] 10 unit SQ DAILY@0700 syr 10/02/20 [Rx] Metoprolol Tartrate [Lopressor] 75 mg PO BID #120 tab 10/02/20 [Rx] Pantoprazole [Protonix] 40 mg PO AC-BRKFST #30 tablet. 10/02/20 [Rx] Sennosides-Docusate Sodium [Senokot-S] 2 each PO HS PRN tab 10/02/20 [Rx] lisinopriL [Zestril] 5 mg PO BID #0 10/02/20 [Rx] metFORMIN HCL [Glucophage] 750 mg PO BID-W/MEALS #60 tab 10/02/20 [Rx] Follow up Appointment(s)/Referral(s): Nola Vasquez NPC [Nurse Practitioner] - 10/07/20 1:45 pm Flaco Lozano MD [STAFF PHYSICIAN] - 2 Weeks (Office will call with appointment) Rehab Guille PH,Cardiac [NON-STAFF] - 4 Weeks (You will receive a phone call a pproximately 4-6 weeks after surgery for cardiac rehab evaluation) Deidre Maddox MD [STAFF PHYSICIAN] - 10/14/20 3:15 pm [facility] [NON-STAFF] - Rachael Cronin NPC [Nurse Practitioner] - 10/29/20 2:45 pm Devin Anthony MD [STAFF PHYSICIAN] - 10/29/20 2:00 pm Ambulatory/Diagnostic Orders: Complete Blood Count w/diff [LAB.AMB] Time Frame: 3 Days, Location: None Selecte d Comprehensive Metabolic Panel [LAB.AMB] Time Frame: 3 Days, Location: None Selected Activity/Diet/Wound Care/Special Instructions: DISCHARGE INSTRUCTIONS: 1. No driving for 4 weeks, or until physician gives their ok. 2. The patient should sleep in their own bed, no medical bed needed. 3. Stairs are not an issue. If the bedroom is upstairs, it is advised that the patient go up at night and down in the morning for the first week. Go slowly, using handrail and take 1 step at a time. 4. SHREYA hose are to be worn for 30 days or until physician discontinues. 5. Heart hugger is to be worn 100% of the time until physician discontinues.(except when showering) 6. No lifting, pushing, or pulling more than 10 pounds for 12 weeks. The physician will advise of any restriction changes. 7. The patient is expected to continue the prescribed walking program. 8. Continue pain control per as needed orders. 9. Continue with incentive spirometry and splinting/heart hugger until otherwise directed by the physician. 10. Must shower daily using liquid antibacterial soap and a separate white washcloth for each individual incision. 11. Routine sternal incision care. No powders, lotions, ointments on incisions. No dressings are necessary on incisions unless they are draining. Dermabond tape is to remain on sternal incision until surgeon follow-up. 12. Please call surgeon/SUPER[employer]PAR[employer] for temp greater than 101 F or purulent drainage from incisions. 13. All prescriptions given by surgeon for 30 days. Refills need to be filled through manager data center/primary care physician. 14. A Red armband has been placed on the patient. It should be worn for 30 days post surgery and will be removed by the cardiac surgeons. If an ER visit is necessary, please make sure the number on the Red armband is called. 15. You have been referred to and are expected to begin Cardiac Rehab in approximately 4-6 weeks. HOME HEALTH SERVICES TO PROVIDE: RN SKILLED HOME CARE SERVICES FOR POST-OP SURGICAL PATIENTS WITH THE FOLLOWING: Coronary Artery Bypass Surgery (CABG), Mitral Valve Replacement/Repair ( MVR), Aortic Valve Replacement/Repair (AVR) RN TO CONTINUE EDUCATION FROM ``ROAD TO A HEALTH HEART PATIENT EDUCATION MANUAL (GIVEN TO PATIENT IN THE HOSPITAL) MEDICATION RECONCILIATION WITH EDUCATION NEEDED ON FIRST HOME VISIT EMPHASIZE IMPORTANCE OF WEARING BREAST SUPPORT/HEART HUGGER ENCOURAGE USE OF INCENTIVE SPIROMETER 10 X EVERY HOUR WHILE AWAKE ENCOURAGE UTILIZATION OF LOWER EXTREMITY COMPRESSION STOCKINGS/SHREYA HOSE and ELEVATE LEGS ABOVE LEVEL OF HEART WHILE AT REST. ENCOURAGE AMBULATION 3-5x/day INCREASING TOLERATES, WHILE AVOIDING EXTREMES IN TEMPERATURE FREQUENCY: RN TO OPEN THE PATIENT WITHIN 24 HOURS OF DISCHARGE FROM THE HOSPITAL WITH TELEHEALTH INSTALLED AT [facility], RN TO VISIT 2-3 X A WEEK FOR 4 WEEKS ESTABLISHED BY PATIENT NEEDS. LABORATORY: CBC, CMP TO BE DRAWN ON THE THIRD DAY HOME, (RAN STAT) FAX RESULTS TO [phone]. TELEHEALTH PARAMETERS: WEIGHT: NOTIFY MD OF WEIGHT GAIN OF 2 LBS IN 24 HOURS OR 5 LBS IN ONE WEEK HR: NOTIFY MD OF HR <55 BPM OR HR>100 BPM BP: NOTIFY MD IF BP <90/55 OR BP>140/100 O2 SAT: NOTIFY MD IF PO2<93% ON ROOM AIR SEND TELEHEALTH REPORT TO FUNERAL PREARRANGEMENT COUNSELOR AND CARDIOVASCULAR SURGEON THE FIRST WEEK OF CARE AND THEN BI-WEEKLY. PLEASE ADDITIONALLY COMMUNICATE ANY ABNORMALS AND NEW FINDINGS TO THE SURGEONS OFFICE. For any questions or concerns please call radioactive waste disposal dispatcher Nola @ or Don @ Discharge Disposition: HOME WITH HOME HEALTH SERVICES
[2020-10-02 11:36] VITALS: TEMP 98.8
[2020-10-02] MEDS ORDERED: metFORMIN 500 MG TAB PO STA (12:01)
--- NOTE | 2020-10-02 12:18 | P.PN ---
Subjective Progress Note Date: 10/02/20 This is a 60-year-old white male patient with medical history of severe aortic stenosis, hypertension, hyperlipidemia, diabetes poultice type II, COPD, previous history of myocardial infarction, SVT status post cardiac ablation, carotid stenosis status post right carotid endarterectomy and history of COVID 19 infection in April 2020. Patient has been experiencing increased exertional dyspnea, and overall decreased functional performance even before COVID-19. Patient had a cardiac catheterization in July 2020 showing significant disease in the small nondominant RCA, patent stent to the LAD, and moderately severely impaired left ventricular systolic function. Transesophageal echocardiogram showed ejection fraction of 40-45%. The patient patient is an ex-smoker, his preop FEV1 was 40% of predicted or 1.5 L. Patient was referred to cardiothoracic surgery, and on 09/28/2020 he underwent aortic valve replacement with a 25 mm Inspra's bovine pericardial valve, and one vessel coronary artery bypass with LIU to the LAD, ligation of the left atrial appendage. Seen the patient in the intensive care unit following his surgery. He is currently self extubated, is currently on 100% nonrebreather mask. Hemodynamically he is stable, he is on lactated Ringer's at a rate of 50 ML per hour, and he is on Primacor is at 0.3 mics per kilo per minute, he is in sinus mechanism with a rate of 102 BPM, his PA pressures 53/31, his last cardiac output was 8.0 with a cardiac index of 3.4, he has a mediastinal and left pleural chest tube connected together, with small amount of serosanguineous output in the Pleur-evac, no evidence of air leak, chest x-ray has been reviewed, showing bilateral subsegmental perihilar atelectasis with small effusion. Postop blood gases showed pO2 of 294, pCO2 57, and pH of 7.33 this was done and FiO2 of 100%, the operative blood work shows a white blood cell count of 14.9, hemoglobin of 11.7, INR of 1.1, sodium of 136, dressing electrolytes were within normal limits, BUN 13 creatinine 0.58 On today's exam on 09/29/2020 patient is seen in the intensive care unit, he status post aortic valve replacement, and a single-vessel coronary artery bypass grafting. He is postoperative day #1. Patient self extubated yesterday shortly after arriving to the intensive care unit, however tolerated extubation quite well. This morning he is sitting up in the recliner, he is awake and alert, oriented 3, he is currently on 4 L of oxygen, breathing comfortably, his pulse ox is 92%. Hemodynamically she is stable, he is on small amount of milrinone at 0.3 mics per kilo per minute, clever [employer]x infusion at 5 mg per hour, insulin is a 7.5 units per hour, and lactated Ringer's at a rate of 50 ML per hour, he is in sinus mechanism, his pacemaker is on VVI backup mode at a rate of 60. His PA pressure is 30/14, cardiac output is 6.9, cardiac index is 2.9. His left p leural chest tube and mediastinal chest tubes are connected together, and there has been a total of 600 mL of thin serosanguineous output since surgery yesterday. Today's chest x-ray has been reviewed, no evidence of pneumothorax, some bibasilar atelectasis, and tiny pleural effusions. he does work on incentive spirometer, he is achieving 1250 on it today. Lung sounds are clear, he has had no acute events overnight, urine output is tapering down, and is down to 10 ML per hour this morning. CT surgery is following, and we'll defer on the decision about fluids and diuretics to CT surgery, today's labs have been reviewed, white blood cell count of 17.6, hemoglobin is 12.7, INR from yesterda y's labs was 1.1, sodium is 136, the rest of electrolytes were within normal limits, BUN of 13 creatinine 0.65. Patient is tolerating oral intake, no nausea vomiting or diarrhea, he is on insulin infusion for blood sugar control, less sugar was 118. On 09/30/2020 patient seen in follow-up in the intensive care unit. Today's postoperative day #2 status post aortic valve replacement and single-vessel coronary artery bypass grafting. he is doing very well, he is currently on 2 L of oxygen with a pulse ox of 94%, hemodynamically he is stable. He is breathing comfortably, he is working on incentive spirometer, he is receiving [id number] on it today. He is in sinus mechanism, no arrhythmias overnight, Primacor has been discontinued, he is currently on lactated Ringer's at 30 ML per hour, and insulin drip is at 10.5 units per hour, patient is being started on Levemir insulin this morning, urine output has been marginal, patient is several kilos positive net fluid balance since admission, and his bilateral lower extremities and bilateral upper extremities have mild nonpitting edema. His chest x-ray showed bilateral patchy infiltrates or atelectasis and small pleural effusion stable in appearance compared to yesterday's chest x-ray. He received a dose of Lasix per CT surgery this morning. His PA pressure is 36/17, CVP is 15, his cardiac output is 7.5, and cardiac index is 3.1. Left pleural and mediastinal chest tube put out a total of 300 mL of thin serous illness output in the last 24 hours. His labs have been reviewed, white blood cell count is 14.5, hemoglobin is 10.8, platelet count is 123, sodium is 132, dorsiflexion lites were within normal limits, BUN is 21 and creatinine 0.7. Patient stated at the bedside, and took couple steps from the bed to the chair, stable on his feet, however has not ambulated yet. Is tolerating oral intake, no nausea or vomiting or diarrhea, no abdominal pain. On 10/01/2020 patient seen in follow-up on selective care unit. He is status post aortic valve replacement and single-vessel coronary artery bypass grafting, today is postoperative day #3, he is awake and alert, in no acute distress, his chest tubes have been removed, his epicardial wires have been removed. His breathing comfortably, his pulse ox is 92% on room air, he is working on incentive spirometer and achieving [id number] mL on incentive spirometer. Hemodynamically stable, today's chest x-ray has been reviewed showing subsegmental postoperative atelectasis with small bilateral pleural effusions, no sizable pneumothorax post chest tube removal. Today's labs have been reviewed, white blood cell count is 13.4, hemoglobin is 10.8, sodium is 132, dressing electrolytes and renal profile are unremarkable. He has had no acute events overnight. He received 1 dose of Lasix yesterday, he has produced 1.2 L in the urine output over the last 24 hours. He is in -260 mL fluid balance. On today's evaluation on 10/02/2020 patient seen in follow-up on selective care unit. He is doing very well, he is on room air, pulse ox is 94%, hemodynamically he is been stable, he is breathing comfortably, today's chest x- ray has been reviewed and COPD with cardiomegaly and bilateral infiltrates with small pleural effusions, all chest tubes have been discontinued the day before yesterday, patient is working on his sense per hour, and achieving [id number] on the today. Lung sounds reveal diminished breath sounds at the bases, with some scattered rales. Off or congestion, no chest discomfort. Incisions are clean dry and intact, patient was able to get into a shower, he was instructed on his incision care. Tolerating ambulation. His labs have been reviewed showing white blood cell count of 11, hemoglobin of 10.5, sodium is 134, the rest of electrolytes and renal profile are unremarkable. Patient is anticipated to be discharged home today. Objective - Vital Signs Vital signs: Vital Signs Temp 98.8 F 10/02/20 08:00 Pulse 100 10/02/20 09:07 Resp 18 10/02/20 08:00 BP 152/75 10/02/20 08:00 Pulse Ox 94 L 10/02/20 08:00 Intake & Output 10/01/20 10/02/20 10/02/20 18:59 06:59 18:59 Intake Total 243 240 Output Total 300 250 Balance -57 -250 240 Weight 133.1 kg Intake: Oral 243 240 Output: Urine 300 250 Other: # Voids 1 1 ABP, PAP, CO, CI - Last Documented Arterial Blood Pressure 144/57 Pulmonary Artery Pressure 39/19 Cardiac Output 7.5 Cardiac Index 3.1 - Exam GENERAL EXAM: Awake and alert, oriented 3, very pleasant 60-year-old obese white male, recliner, on room air, with a pulse ox of 92% HEAD: Normocephalic/atraumatic. EYES: Normal reaction of pupils, equal size. Conjunctiva pink, sclera white. NOSE: Clear with pink turbinates. THROAT: No erythema or exudates. NECK: No masses, no JVD, no thyroid enlargement, no adenopathy. CHEST: No chest wall deformity. Symmetrical expansion. Midsternal and pleural chest tubes have been removed, epicardial wires have been removed LUNGS: Equal air entry with no crackles, wheeze, rhonchi or dullness. CVS: Regular rate and rhythm, normal S1 and S2, no gallops, no murmurs, no rubs ABDOMEN: Soft, nontender. No hepatosplenomegaly, normal bowel sounds, no guarding or rigidity. EXTREMITIES: No clubbing, no edema, no cyanosis, 2+ pulses and upper and lower extremities. MUSCULOSKELETAL: Muscle strength and tone normal. SPINE: No scoliosis or deformity SKIN: No rashes CENTRAL NERVOUS SYSTEM: Awake and alert, oriented 3. focal deficits, tone is normal in all 4 extremities. - Labs CBC & Chem 7: 10/02/20 06:54 10/02/20 06:54 Labs: Abnormal Lab Results - Last 24 Hours (Table) 10/01/20 10/01/20 10/01/20 Range/Units 12:17 17:04 19:42 WBC (3.8-10.6) k/uL RBC (4.30-5.90) m/uL Hgb (13.0-17.5) gm/dL Hct (39.0-53.0) % Sodium (137-145) mmol/L BUN (9-20) mg/dL Glucose (74-99) mg/dL POC Glucose (mg/dL) 237 H 203 H 188 H (75-99) mg/dL 10/02/20 10/02/20 10/02/20 Range/Units 05:59 06:54 06:54 WBC 11.0 H (3.8-10.6) k/uL RBC 3.49 L (4.30-5.90) m/uL Hgb 10.5 L (13.0-17.5) gm/dL Hct 31.8 L (39.0-53.0) % Sodium 134 L (137-145) mmol/L BUN 21 H (9-20) mg/dL Glucose 207 H (74-99) mg/dL POC Glucose (mg/dL) 225 H (75-99) mg/dL Assessment and Plan Plan: Assessment: #1. Severe aortic valve stenosis, and coronary artery disease status post aortic valve replacement with a 25 mm bovine pericardial valve, and CABG 1 with LIU to the LAD, and ligation of the left atrial appendage, postoperative day #4 #2. Routine mechanical ventilator management, however patient self extubated and is currently in the 100% nonrebreather. Tolerating extubation quite well, on postoperative day #1, patient is awake and alert, breathing comfortably, currently on 2 L of oxygen #3. Coronary artery disease, with previous history of stenting #4. COPD, with preop FEV1 of 40% #5. Morbid obesity #6. Hypertension #7. Diabetes mellitus type 2 #8. Former smoker #9. Hyperlipidemia #10. History of CVA #11. Carotid artery stenosis, status post right carotid endarterectomy #12. History of COVID 19 infection in April 2020 Plan: Patient is doing very well on postoperative day #4 Breathing comfortably, he is on room air Chest tubes have been removed, today's chest x-ray has been reviewed showing small bilateral pleural effusions, and atelectasis No acute events overnight, vital signs have been stable Patient has been tolerating ambulation Encourage deep breathing and coughing and incentive spirometry use And patient is being discharged home today Outpatient follow-up with Dr. Meyers in the office in 7-10 days I performed a history & physical examination of the patient and discussed their management with my nurse practitioner, Jennie Swift. I reviewed the nurse practitioner's note and agree with the documented findings and plan of care. Jazmine ng sounds are positive for dim breath sounds. The findings and the impression was discussed with the patient. I attest to the documentation by the nurse practitioner. Time with Patient: Less than 30
[2020-10-02 12:19] LABS: Glucose,Whole Blood 199 mg/dL (75-99)
[2020-10-02 13:08] VITALS: BP 143/66; PULSE 85; RESP 20
[2020-10-02] MEDS ORDERED: metFORMIN 500 MG TAB PO SCH (17:30)
--- NOTE | 2020-10-03 01:16 | P.PN ---
Subjective This is a pleasant 60 years old male with past medical history of Coronary Artery Disease (CAD), COPD, Diabetes Mellitus, Hyperlipidemia, Hypertension, Myocardial Infarction ([place]), Osteoarthritis (OA), Pneumonia, Supraventricular Tachycardia (SVT) Acute hypoxic respiratory failure/covid in 2020, poss. pneumonia, NIDDM type II but not on medication anymore, arthritis bilateral hands, umbilical hernia, SOB w/exertion, supposed to have sleep study in future He was admitted for severe aortic valve stenosis status post aortic valve replacement, and status post CABG and LIU to the LAD Today is postoperative day #1 Sitting in chair comfortable with no distress. No chest pain or dyspnea. Occasional coughing. No bowel movement. He was still nothing by mouth in the morning He has history of diabetes and he was off medication for a while, his back on metformin 500 mg twice daily as well as Lantus 10 units daily Currently kept on insulin drip at 7.5 units per hour He is hemodynamically stable Has mild leukocytosis at 17.6 K, sodium 136, creatinine normal. Liver enzymes not elevated. Sugar controlled and 120s to 140s 09/30/2020 Patient is awake and alert, he feels better generally. This pain at the eloise gical site but not completely resolved. He feels hungry and he wants to eat. No abdominal pain. No bowel movement yet. Hemodynamically stable. Blood pressure is borderline but asymptomatic. Leukoc ytosis stable and improving down to 14.5 K. Patient of the morning was still on insulin drip about 7 units per hour. With known to resume his home dose of Levemir 10 units daily surgical, of the insulin drip, and the meantime keep him on insulin sliding scale per protocol. Is also on metformin 500 mg twice a day at home which is on hold now Patient to continue on aspirin and Plavix, metoprolol and lisinopril 10/01/2020 Patient is clinically doing well. He is hemodynamically stable. He has mild leukocytosis trending down to 13.4 K compared to, 14.5 yesterday. Although not listed in his home medication he confirms to me today that he is taking long-acting insulin 10 units daily and metformin 500 mg daily. His sugars currently running more than 200, and he's only on Levemir 10 units daily. We're going to add metformin 500 mg Patient is clinically doing well 10/02/2020 Today's doing well with no symptoms, no chest pain or dyspnea. No abdominal pain. No nausea vomiting. No other new complaints Hemodynamically he is a stable Leukocytosis of trending down to 11.0 today. Hemoglobin stable at 10.5. Glucose was still uncontrolled with more than 200, therefore we recommended to increase his metformin 750 mg twice a day compared to 500 twice a day before and he agrees. Also to continue with insulin 10 units daily. Also was instructed with close glucose monitoring, see discharge instruction for details Patient is currently on aspirin and Plavix Patient looks clinically stable Objective - Vital Signs Vital signs: Vital Signs Temp 98.8 F 10/02/20 08:00 Pulse 100 10/02/20 09:07 Resp 18 10/02/20 08:00 BP 152/75 10/02/20 08:00 Pulse Ox 94 L 10/02/20 08:00 Intake & Output 10/01/20 10/02/20 10/02/20 18:59 06:59 18:59 Intake Total 243 240 Output Total 300 250 Balance -57 -250 240 Weight 133.1 kg Intake: Oral 243 240 Output: Urine 300 250 Other: # Voids 1 1 ABP, PAP, CO, CI - Last Documented Arterial Blood Pressure 144/57 Pulmonary Artery Pressure 39/19 Cardiac Output 7.5 Cardiac Index 3.1 - Exam GENERAL: The patient is alert and oriented x3, not in any acute distress. Well developed, well nourished. HEENT: Pupils are round and equally reacting to light. EOMI. No scleral icterus. No conjunctival pallor. Normocephalic, atraumatic. No pharyngeal erythema. No thyromegaly. -CARDIOVASCULAR: S1 and S2 present. No murmurs, rubs, or gallops. Surgical wound with a dressing, rest of the exam to surgical team PULMONARY: Chest is clear to auscultation, no wheezing or crackles. ABDOMEN: Soft, nontender, nondistended, normoactive bowel sounds. No palpable organomegaly. MUSCULOSKELETAL: No joint swelling or deformity. EXTREMITIES: No cyanosis, clubbing, or pedal edema. NEUROLOGICAL: Gross neurological examination did not reveal any focal deficits. SKIN: No rashes. no petechiae. Surgical wound with a dressing, deferred rest of exam to surgery team - Labs CBC & Chem 7: 10/02/20 06:54 07/30/21 06:54 Labs: Abnormal Lab Results - Last 24 Hours (Table) 10/01/20 10/01/20 10/01/20 Range/Units 12:17 17:04 19:42 WBC (3.8-10.6) k/uL RBC (4.30-5.90) m/uL Hgb (13.0-17.5) gm/dL Hct (39.0-53.0) % Sodium (137-145) mmol/L BUN (9-20) mg/dL Glucose (74-99) mg/dL POC Glucose (mg/dL) 237 H 203 H 188 H (75-99) mg/dL 10/02/20 10/02/20 10/02/20 Range/Units 05:59 06:54 06:54 WBC 11.0 H (3.8-10.6) k/uL RBC 3.49 L (4.30-5.90) m/uL Hgb 10.5 L (13.0-17.5) gm/dL Hct 31.8 L (39.0-53.0) % Sodium 134 L (137-145) mmol/L BUN 21 H (9-20) mg/dL Glucose 207 H (74-99) mg/dL POC Glucose (mg/dL) 225 H (75-99) mg/dL Assessment and Plan Assessment: Active stenosis status post aortic valve repair. Status post CABG and they met to LAD Diabetes mellitus Hypertension Hyperlipidemia History of coronary artery disease Arthritis History of Covid infection on 04/2020 Plan: This is a pleasant 60 years old maleWith aortic valve stenosis status post aortic valve replacement and CABG Continue with insulin Levemir 10 units daily, continue with metformin and increased the dose to 750 mg twice a day which are both home medication and monitor glucose closely Continue with amiodarone per costume shop coordinator, Continue with aspirin and Plavix Continue with metoprolol and lisinopril Labs and medication were reviewed.. Continue same treatment. Continue with symptomatic treatment. Resume home medication. Monitor lytes and vitals. DVT and GI prophylaxis. Further recommendationsas per clinical course of the patient DVT prophylaxis: Subcutaneous heparin GI Prophylaxis: Ppi
== END 2020-10-02 14:38 | disposition home health service (06) | DRG 220 ==
LOC: 2ORMAIN 05:25 → 2SICU 14:13 → 3SCARD 09-30 14:57
PROVIDERS: ADMIT Thoracic Surgery (Cardiothoracic Vascular Surgery); ATTEND Thoracic Surgery (Cardiothoracic Vascular Surgery)
PROC: 02100Z9 Bypass Coronary Artery, One Artery from Left Internal Mammary, Open Approach (ICD-10-PCS; 2020-09-28)
PROC: 02L70CK Occlusion of Left Atrial Appendage with Extraluminal Device, Open Approach (ICD-10-PCS; 2020-09-28)
PROC: 5A1221Z Performance of Cardiac Output, Continuous (ICD-10-PCS; 2020-09-28)
PROC: 02RF08Z Replacement of Aortic Valve with Zooplastic Tissue, Open Approach (ICD-10-PCS; principal; 2020-09-28 08:00)
DX: I35.0 Nonrheumatic aortic (valve) stenosis (principal); Z68.41 Body mass index [BMI] 40.0-44.9, adult; D62 Acute posthemorrhagic anemia; I45.2 Bifascicular block; J98.11 Atelectasis; I42.9 Cardiomyopathy, unspecified; I25.10 Atherosclerotic heart disease of native coronary artery without angina pectoris; I10 Essential (primary) hypertension; E78.5 Hyperlipidemia, unspecified; J44.9 Chronic obstructive pulmonary disease, unspecified; I25.2 Old myocardial infarction; Z87.891 Personal history of nicotine dependence; E66.01 Morbid (severe) obesity due to excess calories; Z86.16 Personal history of COVID-19; Z86.73 Personal history of transient ischemic attack (TIA), and cerebral infarction without residual deficits; Z98.61 Coronary angioplasty status; I65.23 Occlusion and stenosis of bilateral carotid arteries; D72.829 Elevated white blood cell count, unspecified; M19.90 Unspecified osteoarthritis, unspecified site; Z79.4 Long term (current) use of insulin; Z79.82 Long term (current) use of aspirin; Z79.02 Long term (current) use of antithrombotics/antiplatelets; Z79.51 Long term (current) use of inhaled steroids; E11.65 Type 2 diabetes mellitus with hyperglycemia; Z82.49 Family history of ischemic heart disease and other diseases of the circulatory system; Z83.3 Family history of diabetes mellitus; Z80.0 Family history of malignant neoplasm of digestive organs; Z79.899 Other long term (current) drug therapy; F40.240 Claustrophobia; E11.51 Type 2 diabetes mellitus with diabetic peripheral angiopathy without gangrene
CPT/HCPCS: 71045; 71046; 80048; 80053; 82330; 82805; 83735; 85025; 85027; 85520; 85610; 85730; 86850; 86891; 86900; 86901; 86920; 88305; 88311; 94002; 94640; 94660; 94760

== ENCOUNTER → 2020-12-01 | Outpatient (CLI) | payer BC ==
[2020-12-03 02:10] LABS: African American GFR (CKD) 115.6 (60.0-200.0); Albumin 4.5 g/dL (3.8-4.9); Albumin/Globulin Ratio 2.03 (1.60-3.17); Anion Gap 18.1 mmol/L (4.00-12.00); BUN/Creat Ratio 19.67 Ratio (12.00-20.00); Blood Urea Nitrogen 14.5 mg/dL (9.0-27.0); Calcium 9.6 mg/dL (8.7-10.3); Carbon Dioxide 20.9 mmol/L (21.6-31.8); Chol/HDL Ratio 2.89 Ratio; Globulin 2.2 g/dL (1.6-3.3); LDL Cholesterol,Calculated 36.1 mg/dL (0.0-131.0); Non-African American GFR(CKD) 99.7 (60.0-200.0); Potassium 4.5 mmol/L (3.5-5.5); Total Bilirubin 0.4 mg/dL (0.30-1.20); Total Protein 6.8 g/dL (6.2-8.2); VLDL Calculation 20.6 mg/dL (5.00-40.00)
== END ==
LOC: LABWHC1 10:54
PROVIDERS: ATTEND Internal Medicine Interventional Cardiology
DX: E78.2 Mixed hyperlipidemia (principal)
CPT/HCPCS: 36415; 80053; 80061

== ENCOUNTER 2021-06-28 07:30 | Day surgery (SDC) | payer BC ==
[2021-06-24 15:50] VITALS: BMI 38.3
[2021-06-28] MEDS ORDERED: LACTATED RINGERS 1,000 ML BAG IV ONE (07:35)
[2021-06-28] MEDS ORDERED: PROPOFOL 10 MG/ML 20 ML VIAL IV ONE (07:35)
[2021-06-28 10:47] LABS: Glucose,Whole Blood 181 mg/dL (75-99)
--- NOTE | 2021-06-28 20:09 | P.GSHP ---
History of Present Illness H&P Date: 06/28/21 CHIEF COMPLAINT: Colon screen HISTORY OF PRESENT ILLNESS: The patient is a 61-year-old male who presents for colon screen. Lower endoscopy was offered for further evaluation and management. PAST MEDICAL HISTORY: Please see list. PAST SURGICAL HISTORY: Please see list. MEDICATIONS: Please see list. ALLERGIES: Please see list. SOCIAL HISTORY: No illicit drug use FAMILY HISTORY: No reports of Crohn disease or ulcerative colitis. REVIEW OF ORGAN SYSTEMS: CONSTITUTIONAL: No reports of fevers or chills. PHYSICAL EXAM: VITAL SIGNS: Stable GENERAL: Well-developed pleasant in no acute distress. HEENT: No scleral icterus. Extraocular movements grossly intact. Moist buccal mucosa. NECK: Supple without lymphadenopathy. CHEST: Unlabored respirations. Equal bilateral excursions. CARDIOVASCULAR: Regular rate and rhythm. Distal 2+ pulses. ABDOMEN: Soft, nontender, nondistended. MUSCULOSKELETAL: No clubbing, cyanosis, or edema. ASSESSMENT: 1. Colon screen. PLAN: 1. Recommend proceeding with a lower endoscopy Past Medical History Past Medical History: Coronary Artery Disease (CAD), COPD, Diabetes Mellitus, Hyperlipidemia, Hypertension, Myocardial Infarction ([place]), Osteoarthritis (OA), Pneumonia, Skin Disorder, Sleep Apnea/CPAP/BIPAP, Supraventricular Tachycardia (SVT) Additional Past Medical History / Comment(s): Hx Acute hypoxic respiratory failure, sepsis d/t GE or pneumonia, arthritis bilat hands, occ rash on face, new sleep apnea - awaiting maching, umbilical hernia, SVT with successful ablation. Last Myocardial Infarction Date:: 12-23-16 History of Any Multi-Drug Resistant Organisms: None Reported Past Surgical History: Appendectomy, Cardiac Ablation, Cardiac Valve Replacement, Coronary Bypass/CABG, Heart Catheterization With Stent, Orthopedic Surgery Additional Past Surgical History / Comment(s): Cardiac ablation for SVT, R carotid endartectomy, bilateral carpal tunnel releases, colonoscopies/benign polyps. PTCA w/ 3 stents. CABG, bypass x1, Aortic Valve replaced w/ bovine 09/28/20. Past Anesthesia/Blood Transfusion Reactions: No Reported Reaction Additional Past Anesthesia/Blood Transfusion Reaction / Comment(s): Pt has claustrophobia w/ MRI. Date of Last Stent Placement:: 12-23-16 Smoking Status: Former smoker - Past Family History Father Brother(s) Family Medical History: Cancer Additional Family Medical History / Comment(s): Father from colon cancer at the age of 63 yrs. Brother had colon cancer with surgical removal. Mother Family Medical History: Coronary Artery Disease (CAD), Diabetes Mellitus, Myocardial Infarction ([place]) Additional Family Medical History / Comment(s): Mother of a NE at the age of 79yrs. She had an AICD/pacer. Medications and Allergies Home Medications Medication Instructions Recorded Confirmed Type Albuterol Inhaler [Ventolin Hfa 2 puff INHALATION RT-QID PRN 04/29/20 06/24/21 History Inhaler] Atorvastatin [Lipitor] 80 mg PO HS 04/29/20 06/24/21 History Ascorbic Acid [Vitamin C] 1,000 mg PO DAILY 30 Days #60 tab 05/01/20 06/24/21 Rx Clopidogrel [Plavix] 75 mg PO HS 07/08/20 06/24/21 History Budesonide-Formot 160-4.5 Mcg 2 puff INHALATION BID 09/24/20 06/24/21 History [Symbicort 160-4.5 Mcg Inhaler] Montelukast [Singulair] 10 mg PO HS 09/24/20 06/24/21 History metFORMIN HCL [Glucophage] 750 mg PO BID-W/MEALS #60 tab 10/02/20 06/24/21 Rx Aspirin 81 mg PO DAILY 06/24/21 06/24/21 History Insulin Detemir (Levemir) [Levemir] 10 unit SQ HS 06/24/21 06/24/21 History Metoprolol Tartrate [Lopressor] 100 mg PO BID 06/24/21 06/24/21 History lisinopriL [Zestril] 20 mg PO BID 06/24/21 06/24/21 History Allergies Allergy/AdvReac Type Severity Reaction Status Date / Time No Known Allergies Allergy Verified 06/24/21 15:20 Results - Labs Abnormal Lab Results - Last 24 Hours (Table) 06/28/21 Range/Units 07:31 POC Glucose (mg/dL) 181 H (75-99) mg/dL
--- NOTE | 2021-06-28 20:17 | P.PCN ---
Date of Procedure: 06/28/21 Description of Procedure: PREOPERATIVE DIAGNOSIS: Personal history of colon polyps Colonoscopy screening POSTOPERATIVE DIAGNOSIS: Tubular adenoma cecum Tubular adenoma transverse colon Tubular adenoma splenic flexure Tubular adenoma descending flexure Internal hemorrhoids, grade 2 OPERATION: Colonoscopy to the ileocecal valve and appendiceal orifice, cecum Colonoscopy with hot snare polypectomy Colonoscopy with cold forceps biopsy SURGEON: Bev Kong MD. ANESTHESIA: MAC. INDICATIONS: The patient is an 61-year-old male who presents with personal history of colon polyps. Last colonoscopy 5 years. Benefits and risks were described and informed consent was obtained. DESCRIPTION OF PROCEDURE: The patient had undergone Sutab prep. The patient had been brought into the operating room and laid in the left lateral decubitus position. After adequate intravenous sedation, the rectum was examined with 2% lidocaine jelly. The prostate was unremarkable. External hemorrhoids were encountered. The rectal tone was within normal limits. No lesions were palpated in the rectal vault. An Olympus colonoscope was advanced until the cecum, ileocecal valve and appendiceal orifice were clearly viewed. The prep was good. No sigmoid diverticulosis was encountered. Colonic polyps were found and removed. No evidence of focal colitis was found. Retroflexion of the scope demonstrated grade 2 internal hemorrhoids without active bleeding or inflammation. The colon was desufflated. The patient had tolerated the procedure well. Withdrawal time was over 6 minutes. FINDINGS: Aronchick preparation quality scale 2 (1-5) Internal hemorrhoids, grade 2 External hemorrhoids, grade 2. No arteriovenous malformations. No sigmoid diverticulosis Removal of 8 polyps: - Snare polypectomy at cecum, 5 mm tubulovillous adenoma polyp. - Snare polypectomy at proximal transverse colon, 5 mm tubulovillous adenoma polyp. - Snare polypectomy at distal transverse colon, 6 mm tubulovillous adenoma polyp. - Snare polypectomy at descending colon, 8 mm flat villous adenoma polyp. - Cold forceps biopsy at splenic flexure x 2, 4 to 5 mm polyp. - Cold forceps biopsy at 50 cm from the anal verge x 2, 3 to 4 mm polyp, sigmoid colon No focal colitis. RECOMMENDATIONS: Given severity of tubular adenomas, recommend repeat colonoscopy 2 years, 2023 Plan - Discharge Summary Discharge Rx Participant: No New Discharge Prescriptions: Continue Albuterol Inhaler [Ventolin Hfa Inhaler] 2 puff INHALATION RT-QID PRN PRN Reason: Shortness Of Breath Atorvastatin [Lipitor] 80 mg PO HS Ascorbic Acid [Vitamin C] 1,000 mg PO DAILY 30 Days #60 tab Montelukast [Singulair] 10 mg PO HS Budesonide-Formot 160-4.5 Mcg [Symbicort 160-4.5 Mcg Inhaler] 2 puff INHALATION BID Insulin Detemir (Levemir) [Levemir] 10 unit SQ HS Clopidogrel [Plavix] 75 mg PO HS metFORMIN HCL [Glucophage] 750 mg PO BID-W/MEALS #60 tab Aspirin 81 mg PO DAILY Metoprolol Tartrate [Lopressor] 100 mg PO BID lisinopriL [Zestril] 20 mg PO BID Discharge Medication List Albuterol Inhaler [Ventolin Hfa Inhaler] 2 puff INHALATION RT-QID PRN 04/29/20 [History] Atorvastatin [Lipitor] 80 mg PO HS 04/29/20 [History] Ascorbic Acid [Vitamin C] 1,000 mg PO DAILY 30 Days #60 tab 05/01/20 [Rx] Clopidogrel [Plavix] 75 mg PO HS 07/08/20 [History] Budesonide-Formot 160-4.5 Mcg [Symbicort 160-4.5 Mcg Inhaler] 2 puff INHALATION BID 09/24/20 [History] Montelukast [Singulair] 10 mg PO HS 09/24/20 [History] metFORMIN HCL [Glucophage] 750 mg PO BID-W/MEALS #60 tab 10/02/20 [Rx] Aspirin 81 mg PO DAILY 06/24/21 [History] Insulin Detemir (Levemir) [Levemir] 10 unit SQ HS 06/24/21 [History] Metoprolol Tartrate [Lopressor] 100 mg PO BID 06/24/21 [History] lisinopriL [Zestril] 20 mg PO BID 06/24/21 [History] Follow up Appointment(s)/Referral(s): Bev Kong MD [STAFF PHYSICIAN] - As Needed Patient Instructions/Handouts: Colorectal Polyps (GEN) Activity/Diet/Wound Care/Special Instructions: Repeat colonoscopy in 2 years, 2023 Discharge Disposition: HOME SELF-CARE
== END 2021-06-28 10:30 | disposition home or self-care (01) ==
LOC: ORWHC2ENDO 07:30
PROVIDERS: ATTEND Surgery Plastic and Reconstructive Surgery
DX: Z12.11 Encounter for screening for malignant neoplasm of colon (principal); D12.0 Benign neoplasm of cecum; D12.4 Benign neoplasm of descending colon; D12.5 Benign neoplasm of sigmoid colon; D12.3 Benign neoplasm of transverse colon; K64.1 Second degree hemorrhoids; K64.4 Residual hemorrhoidal skin tags; Z86.010 Personal history of colon polyps; I25.10 Atherosclerotic heart disease of native coronary artery without angina pectoris; J44.9 Chronic obstructive pulmonary disease, unspecified; E11.9 Type 2 diabetes mellitus without complications; E78.5 Hyperlipidemia, unspecified; I10 Essential (primary) hypertension; I25.2 Old myocardial infarction; G47.30 Sleep apnea, unspecified; I47.1 Supraventricular tachycardia; M19.042 Primary osteoarthritis, left hand; M19.041 Primary osteoarthritis, right hand; R21 Rash and other nonspecific skin eruption; K42.9 Umbilical hernia without obstruction or gangrene; Z79.02 Long term (current) use of antithrombotics/antiplatelets; Z79.899 Other long term (current) drug therapy; Z79.51 Long term (current) use of inhaled steroids; Z79.84 Long term (current) use of oral hypoglycemic drugs; Z79.4 Long term (current) use of insulin; Z95.3 Presence of xenogenic heart valve; Z95.5 Presence of coronary angioplasty implant and graft; Z95.1 Presence of aortocoronary bypass graft; Z87.01 Personal history of pneumonia (recurrent); Z90.49 Acquired absence of other specified parts of digestive tract; Z98.890 Other specified postprocedural states; Z87.891 Personal history of nicotine dependence; Z80.0 Family history of malignant neoplasm of digestive organs; Z82.49 Family history of ischemic heart disease and other diseases of the circulatory system; Z83.3 Family history of diabetes mellitus
CPT/HCPCS: 88305; 45380; 45385; J2704

== ENCOUNTER 2021-09-19 08:26 | Inpatient (IN) | payer BC ==
[2021-09-19] MEDS ORDERED: ACETAMINOPHEN TAB 500 MG TAB PO STA (08:53)
[2021-09-19] MEDS ORDERED: IBUPROFEN 600 MG TAB PO STA (08:53)
[2021-09-19] MEDS ORDERED: IPRATROPIUM-ALBUTEROL 3 ML NEB INHALATION STA (08:56)
[2021-09-19] MEDS ORDERED: ALBUTEROL HFA INHALER INHALATION STA (08:56)
--- NOTE | 2021-09-19 08:56 | ED ---
General Adult HPI - General Chief complaint: Shortness of Breath Stated complaint: STACEY,Confusion Time Seen by Provider: 09/19/21 08:35 Source: patient, RN notes reviewed, old records reviewed Mode of arrival: wheelchair Limitations: no limitations - History of Present Illness Initial comments: This is a 61-year-old male who presents emergency Department complaining of a sore throat or congestion and some shortness of breath over the last 3 days. Patient states she's got his COVID vaccine and 2 boosters. Patient states his fever yesterday spiked 102 and again today so he decided to come to the emergency department. Patient denies any chest pain or palpitations. Patient denies abdominal pain patient denies any nausea vomiting or diarrhea. Patient denies any back pain. Patient denies any recent injury or fall. Patient denies headache patient denies numbness weakness. - Related Data Home Medications Medication Instructions Recorded Confirmed Albuterol Inhaler [Ventolin Hfa 2 puff INHALATION RT-QID PRN 04/29/20 06/24/21 Inhaler] Atorvastatin [Lipitor] 80 mg PO HS 04/29/20 06/24/21 Clopidogrel [Plavix] 75 mg PO HS 07/08/20 06/24/21 Budesonide-Formot 160-4.5 Mcg 2 puff INHALATION BID 09/24/20 06/24/21 [Symbicort 160-4.5 Mcg Inhaler] Montelukast [Singulair] 10 mg PO HS 09/24/20 06/24/21 Aspirin 81 mg PO DAILY 06/24/21 06/24/21 Insulin Detemir (Levemir) [Levemir] 10 unit SQ HS 06/24/21 06/24/21 Metoprolol Tartrate [Lopressor] 100 mg PO BID 06/24/21 06/24/21 lisinopriL [Zestril] 20 mg PO BID 06/24/21 06/24/21 Previous Rx's Medication Instructions Recorded Ascorbic Acid [Vitamin C] 1,000 mg PO DAILY 30 Days #60 tab 05/01/20 metFORMIN HCL [Glucophage] 750 mg PO BID-W/MEALS #60 tab 10/02/20 Allergies Allergy/AdvReac Type Severity Reaction Status Date / Time No Known Allergies Allergy Verified 09/19/21 08:37 Review of Systems ROS Statement: Those systems with pertinent positive or pertinent negative responses have been documented in the HPI. ROS Other: All systems not noted in ROS Statement are negative. Past Medical History Past Medical History: Coronary Artery Disease (CAD), COPD, Diabetes Mellitus, Hyperlipidemia, Hypertension, Myocardial Infarction ([place]), Osteoarthritis (OA), Pneumonia, Skin Disorder, Sleep Apnea/CPAP/BIPAP, Supraventricular Tachycardia (SVT) Additional Past Medical History / Comment(s): Hx Acute hypoxic respiratory failure, sepsis d/t GE or pneumonia, arthritis bilat hands, occ rash on face, new sleep apnea - awaiting maching, umbilical hernia, SVT with successful ablation. Last Myocardial Infarction Date:: 12-23-16 History of Any Multi-Drug Resistant Organisms: None Reported Past Surgical History: Appendectomy, Cardiac Ablation, Cardiac Valve Repla cement, Coronary Bypass/CABG, Heart Catheterization With Stent, Orthopedic Surgery Additional Past Surgical History / Comment(s): Cardiac ablation for SVT, R carotid endartectomy, bilateral carpal tunnel releases, colonoscopies/benign polyps. PTCA w/ 3 stents. CABG, bypass x1, Aortic Valve replaced w/ bovine 09/28/20. Past Anesthesia/Blood Transfusion Reactions: No Reported Reaction Additional Past Anesthesia/Blood Transfusion Reaction / Comment(s): Pt has claustrophobia w/ MRI. Date of Last Stent Placement:: 12-23-16 Past Psychological History: No Psychological Hx Reported Smoking Status: Former smoker - Past Family History Father Brother(s) Family Medical History: Cancer Additional Family Medical History / Comment(s): Father from colon cancer at the age of 63 yrs. Brother had colon cancer with surgical removal. Mother Family Medical History: Coronary Artery Disease (CAD), Diabetes Mellitus, Myocardial Infarction ([place]) Additional Family Medical History / Comment(s): Mother of a [place] at the age of 79yrs. She had an AICD/pacer. General Exam - General Exam Comments Initial Comments: GENERAL: Patient is well-developed and well-nourished. Patient is nontoxic and well- hydrated and is in mild distress. ENT: Neck is soft and supple. No significant lymphadenopathy is noted. Oropharynx is clear. Moist mucous membranes. Neck has full range of motion without eliciting any pain. EYES: The sclera were anicteric and conjunctiva were pink and moist. Extraocular movements were intact and pupils were equal round and reactive to light. Eyelids were unremarkable. PULMONARY: Respiratory wheezing CARDIOVASCULAR: There is a regular rate and rhythm without any murmurs gallops or rubs. ABDOMEN: Soft and nontender with normal bowel sounds. SKIN: Skin is clear with no lesions or rashes and otherwise unremarkable. NEUROLOGIC: Patient is alert and oriented x3. Cranial nerves II through XII are grossly intact. Motor and sensory are also intact. Normal speech, volume and content. Symmetrical smile. MUSCULOSKELETAL: Normal extremities with adequate strength and full range of motion. LYMPHATICS: No significant lymphadenopathy is noted PSYCHIATRIC: Normal psychiatric evaluation. Limitations: no limitations Course Vital Signs 09/19/21 09/19/21 09/19/21 08:32 08:45 10:27 Temperature 100.8 F H 102.8 F H 98.9 F Pulse Rate 113 H 85 Respiratory 20 20 Rate Blood Pressure 133/65 109/69 O2 Sat by Pulse 87 L 76 L 98 Oximetry 09/19/21 09/19/21 09/19/21 11:22 12:33 12:46 Temperature Pulse Rate 82 83 81 Respiratory 18 20 20 Rate Blood Pressure 119/72 O2 Sat by Pulse 93 L Oximetry 09/19/21 13:09 Temperature Pulse Rate Respiratory Rate Blood Pressure O2 Sat by Pulse 85 L Oximetry Medical Decision Making - Medical Decision Making EKG shows sinus tachycardia at 100 bpm SC interval 252 QRS is 118 QT interval 351 QTC is 408 per patient's EKG shows no ST segment elevation. I removed the oxygen on the patient patient's oxygenation went down into the 80s. Patient received 4 breathing treatments in the emergency pertinent steroids and antibiotics. Patient's chest x-ray showed pneumonia patient will be admitted. - Lab Data Result diagrams: 09/19/21 09:07 09/19/21 10:25 Lab Results 09/19/21 09/19/21 09/19/21 Range/Units 08:54 09:07 09:07 WBC 21.5 H (3.8-10.6) k/uL RBC 5.12 (4.30-5.90) m/uL Hgb 14.4 (13.0-17.5) gm/dL Hct 46.7 (39.0-53.0) % MCV 91.3 (80.0-100.0) fL MCH 28.1 (25.0-35.0) pg MCHC 30.8 L (31.0-37.0) g/dL RDW 12.6 (11.5-15.5) % Plt Count 260 (150-450) k/uL MPV 8.6 Neutrophils % 80 % Lymphocytes % 6 % Monocytes % 10 % Eosinophils % 0 % Basophils % 1 % Neutrophils # 17.2 H (1.3-7.7) k/uL Lymphocytes # 1.3 (1.0-4.8) k/uL Monocytes # 2.2 H (0-1.0) k/uL Eosinophils # 0.1 (0-0.7) k/uL Basophils # 0.3 H (0-0.2) k/uL Hypochromasia Slight Sodium (137-145) mmol/L Potassium (3.5-5.1) mmol/L Chloride (98-107) mmol/L Carbon Dioxide (22-30) mmol/L Anion Gap mmol/L BUN (9-20) mg/dL Creatinine (0.66-1.25) mg/dL Est GFR (CKD-EPI)AfAm (>60 ml/min/1.73 sqM) Est GFR (CKD-EPI)NonAf (>60 ml/min/1.73 sqM) Glucose (74-99) mg/dL Plasma Lactic Acid Zach 1.5 (0.7-2.0) mmol/L Calcium (8.4-10.2) mg/dL Total Bilirubin (0.2-1.3) mg/dL AST (17-59) U/L ALT (4-49) U/L Alkaline Phosphatase (38-126) U/L Total Protein (6.3-8.2) g/dL Albumin (3.5-5.0) g/dL Coronavirus (PCR) Not Detected (Not Detectd) Influenza Type A RNA (Not Detectd) Influenza Type B (PCR) (Not Detectd) 09/19/21 09/19/21 Range/Units 09:07 10:25 WBC (3.8-10.6) k/uL RBC (4.30-5.90) m/uL Hgb (13.0-17.5) gm/dL Hct (39.0-53.0) % MCV (80.0-100.0) fL MCH (25.0-35.0) pg MCHC (31.0-37.0) g/dL RDW (11.5-15.5) % Plt Count (150-450) k/uL MPV Neutrophils % % Lymphocytes % % Monocytes % % Eosinophils % % Basophils % % Neutrophils # (1.3-7.7) k/uL Lymphocytes # (1.0-4.8) k/uL Monocytes # (0-1.0) k/uL Eosinophils # (0-0.7) k/uL Basophils # (0-0.2) k/uL Hypochromasia Sodium 139 (137-145) mmol/L Potassium 4.4 (3.5-5.1) mmol/L Chloride 97 L (98-107) mmol/L Carbon Dioxide 35 H (22-30) mmol/L Anion Gap 7 mmol/L BUN 41 H (9-20) mg/dL Creatinine 1.20 (0.66-1.25) mg/dL Est GFR (CKD-EPI)AfAm 75 (>60 ml/min/1.73 sqM) Est GFR (CKD-EPI)NonAf 65 (>60 ml/min/1.73 sqM) Glucose 212 H (74-99) mg/dL Plasma Lactic Acid Zach (0.7-2.0) mmol/L Calcium 8.7 (8.4-10.2) mg/dL Total Bilirubin 0.6 (0.2-1.3) mg/dL AST 29 (17-59) U/L ALT 21 (4-49) U/L Alkaline Phosphatase 93 (38-126) U/L Total Protein 7.0 (6.3-8.2) g/dL Albumin 4.0 (3.5-5.0) g/dL Coronavirus (PCR) (Not Detectd) Influenza Type A RNA Not Detected (Not Detectd) Influenza Type B (PCR) Not Detected (Not Detectd) Critical Care Time Critical Care Time: Yes Total Critical Care Time: 35 Disposition Clinical Impression: Pneumonia, Hypoxia, COPD exacerbation Disposition: ADMITTED IP TO THIS HOSP Referrals: Deidre Maddox MD [Primary Care Provider] - 1-2 days Time of Disposition: 13:10
[2021-09-19 09:41] LABS: Basophils # (A) 0.3 k/uL (0-0.2); Basophils % (A) 1 %; Eosinophils # (A) 0.1 k/uL (0-0.7); Eosinophils % (A) 0 %; HCT 46.7 % (39.0-53.0); HGB 14.4 gm/dL (13.0-17.5); Hypochromasia Slight; Lymphocytes # (A) 1.3 k/uL (1.0-4.8); Lymphocytes % (A) 6 %; MCH 28.1 pg (25.0-35.0); MCHC 30.8 g/dL (31.0-37.0); MCV 91.3 fL (80.0-100.0); Mean Platelet Volume 8.6; Monocytes # (A) 2.2 k/uL (0-1.0); Monocytes % (A) 10 %; Neutrophils # (A) 17.2 k/uL (1.3-7.7); Neutrophils % (A) 80 %; Platelet Count 260 k/uL (150-450); RBC 5.12 m/uL (4.30-5.90); RDW 12.6 % (11.5-15.5); WBC 21.5 k/uL (3.8-10.6)
--- NOTE | 2021-09-19 09:52 | XR ---
EXAMINATION TYPE: XR chest 2V DATE OF EXAM: 09/19/2021 COMPARISON: 10/02/2020 HISTORY: Shortness of breath TECHNIQUE: Frontal and lateral views of the chest are obtained. FINDINGS: Scattered senescent parenchymal changes noted. Hyperinflation compatible with COPD. There is increased density right medial lung base which may reflect developing infiltrate. Correlate clinically. No evidence for atelectasis. Heart size is stable. Sternotomy wires mediastinal clips noted. Mediastinal structures are stable and grossly unremarkable. No evidence for hilar prominence. Degenerative changes dorsal spine. IMPRESSION: 1. There is increased density right medial lung base which may reflect developing infiltrate. Correla te clinically.
[2021-09-19] MEDS ORDERED: cefTRIAXone IN SWFI 1,000 MG/10 ML SYRINGE IVP STA (10:53)
[2021-09-19 10:55] LABS: Calcium 8.7 mg/dL (8.4-10.2); Potassium 4.4 mmol/L (3.5-5.1); Total Bilirubin 0.6 mg/dL (0.2-1.3)
[2021-09-19] MEDS ORDERED: methylPREDNISolone SOD SUCCI 125 MG/2 ML VIAL IV STA (11:15)
[2021-09-19] MEDS ORDERED: AZITHROMYCIN 500 MG TAB PO STA (11:15)
[2021-09-19] MEDS ORDERED: ALBUTEROL NEBULIZED 2.5 MG/3 ML INHALATION STA ×2 (11:44)
[2021-09-19] MEDS ORDERED: IPRATROPIUM 0.5 MG/2.5 ML NEBU INHALATION STA (11:45)
[2021-09-19] MEDS ORDERED: PNEUMONIA PROTOCOL UTILIZED 1 EACH MISC PO PRN (13:10)
[2021-09-19] MEDS ORDERED: IPRATROPIUM-ALBUTEROL 3 ML NEB INHALATION PRN (13:10)
--- NOTE | 2021-09-19 15:06 | P.HPIM ---
History of Present Illness H&P Date: 09/19/21 Chief Complaint: Difficulty in breathing Patient is a 62-year-old male with a known history of coronary disease status post CABG about 1 year ago, history of stent placement, hypertension, hyperlipidemia, diabetes type 2 [id number], obstructive sleep apnea, history of SVT status post ablation and prior history of smoking and COPD presents to ER with complaints of worsening shortness of breath for the past 2 days. Patient was also coughing up greenish colored sputum production. Patient has been having confusion and sleeping more as per his at bedside. Also noticed some increased swelling in the feet. Presented to ER due to worsening symptoms. Patient states that he had a fever yesterday 102 F and again today and presented to ER. Denies any complaints of nausea or vomiting. No abdominal pain or diarrhea. Denies any dizziness or lightheadedness. No recent illnesses. Patient did have COVID-1 vaccine and booster shot.. Patient denies any prior history of CHF. Chest x-ray showed there is increased density right middle lung base which may r eflect developing infiltrate. Correlate clinically. EKG showed sinus tachycardia On admission patient was tachycardic and pulse ox 87% on room air. T-max 102.8. Laboratory showed WBC 21.5 hemoglobin 14.4 and platelets 260 neutrophils 17.2 Sodium 139 potassium 4.4 chloride 97 bicarb 35 BUN 41 creatinine 1.2 and blood sugar is 212 Loramyc are not elevated and COVID-19 PCR and influenza a and B PCR not detected. Review of Systems Constitutional: Patient does have fever at home and no chills.. Generalized weakness and fatigue.. Abdomen: Patient denied nausea vomiting and diarrhea and abdominal pain. Cardiovascular: Patient denies any chest pain. Positive short of breath no palpitations. Respiratory: Patient does have cough with green sputum production and shortness of breath Neurologic: Patient denied any numbness or tingling headache. Musculoskeletal: Patient denies any complaints of joint swelling or deformity. Skin: Negative Psychiatric: Negative Endocrine: No heat or cold intolerance. No recent weight gain. Genitourinary: No dysuria or hematuria. All other 14 point ROS negative except the above Past Medical History Past Medical History: Coronary Artery Disease (CAD), COPD, Diabetes Mellitus, Hyperlipidemia, Hypertension, Myocardial Infarction ([place]), Osteoarthritis (OA), Pneumonia, Skin Disorder, Sleep Apnea/CPAP/BIPAP, Supraventricular Tachycardia (SVT) Additional Past Medical History / Comment(s): Hx Acute hypoxic respiratory failure, sepsis d/t GE or pneumonia, arthritis bilat hands, occ rash on face, new sleep apnea - awaiting maching, umbilical hernia, SVT with successful ablation. Last Myocardial Infarction Date:: 12-23-16 History of Any Multi-Drug Resistant Organisms: None Reported Past Surgical History: Appendectomy, Cardiac Ablation, Cardiac Valve Replaceme nt, Coronary Bypass/CABG, Heart Catheterization With Stent, Orthopedic Surgery Additional Past Surgical History / Comment(s): Cardiac ablation for SVT, R carotid endartectomy, bilateral carpal tunnel releases, colonoscopies/benign polyps. PTCA w/ 3 stents. CABG, bypass x1, Aortic Valve replaced w/ bovine 09/28/20. Past Anesthesia/Blood Transfusion Reactions: No Reported Reaction Additional Past Anesthesia/Blood Transfusion Reaction / Comment(s): Pt has claustrophobia w/ MRI. Date of Last Stent Placement:: 12-23-16 Past Psychological History: No Psychological Hx Reported Smoking Status: Former smoker - Past Family History Father Brother(s) Family Medical History: Cancer Additional Family Medical History / Comment(s): Father from colon cancer at the age of 63 yrs. Brother had colon cancer with surgical removal. Mother Family Medical History: Coronary Artery Disease (CAD), Diabetes Mellitus, Myocardial Infarction ([place]) Additional Family Medical History / Comment(s): Mother of a [place] at the age of 79yrs. She had an AICD/pacer. Medications and Allergies Home Medications Medication Instructions Recorded Confirmed Type Atorvastatin [Lipitor] 80 mg PO DAILY 04/29/20 09/19/21 History Clopidogrel [Plavix] 75 mg PO DAILY 07/08/20 09/19/21 History Montelukast [Singulair] 10 mg PO DAILY 09/24/20 09/19/21 History metFORMIN HCL [Glucophage] 750 mg PO BID-W/MEALS #60 tab 10/02/20 09/19/21 Rx Insulin Glargine,Hum.rec.anlog 10 units SQ HS 09/19/21 09/19/21 History [Lantus Solostar Pen] Metoprolol Tartrate [Lopressor] 100 mg PO BID-W/MEALS 09/19/21 09/19/21 History lisinopriL [Zestril] 20 mg PO BID 09/19/21 09/19/21 History Allergies Allergy/AdvReac Type Severity Reaction Status Date / Time No Known Allergies Allergy Verified 09/19/21 14:01 Physical Exam Vitals: Vital Signs Temp Pulse Resp BP Pulse Ox 09/19/21 13:12 93 L 09/19/21 13:09 85 L 09/19/21 12:46 81 20 09/19/21 12:33 83 20 09/19/21 11:22 82 18 119/72 93 L 09/19/21 10:27 98.9 F 85 20 109/69 98 09/19/21 08:45 102.8 F H 76 L 09/19/21 08:32 100.8 F H 113 H 20 133/65 87 L Intake and Output 09/18/21 09/19/21 09/19/21 22:59 06:59 14:59 Other: Weight 79.379 kg PHYSICAL EXAMINATION: Patient is lying in the bed comfortably, no acute distress, awake alert and oriented slightly confused.. HEENT: Normocephalic. Neck is supple. Pupils reactive. Nostrils clear. Oral cav ity is moist. Neck reveals no JVD, carotid bruits, or thyromegaly. CHEST EXAMINATION: Trachea is central. Symmetrical expansion. Bilateral wheezing and scattered rhonchi and crackles.. CARDIAC: Normal S1, S2 with no gallops. No murmurs ABDOMEN: Soft. Bowel sounds normal. No organomegaly. No abdominal bruits. Extremities: Trace bilateral pedal edema. No clubbing or cyanosis Neurologically awake, alert, oriented x3 with well-coordinated movements. Mild confusion. No gross focal deficits noted Skin: No rash or skin lesions. Psychiatric: Coperative. Nonsuicidal Musculoskeletal: No joint swelling or deformity. Normal range of motion. Results CBC & Chem 7: 09/19/21 09:07 09/19/21 10:25 Labs: Abnormal Lab Results - Last 24 Hours (Table) 09/19/21 09/19/21 Range/Units 09:07 10:25 WBC 21.5 H (3.8-10.6) k/uL MCHC 30.8 L (31.0-37.0) g/dL Neutrophils # 17.2 H (1.3-7.7) k/uL Monocytes # 2.2 H (0-1.0) k/uL Basophils # 0.3 H (0-0.2) k/uL Chloride 97 L (98-107) mmol/L Carbon Dioxide 35 H (22-30) mmol/L BUN 41 H (9-20) mg/dL Glucose 212 H (74-99) mg/dL Thrombosis Risk Factor Assmnt - DVT/VTE Prophylaxis DVT/VTE Prophylaxis: Pharmacologic Prophylaxis ordered Assessment and Plan Assessment: Acute right lower lobe pneumonia. Severe sepsis secondary to above Acute hypoxic and hypercapnic respiratory failure requiring oxygen at 3 L via nasal cannula on admission Acute COPD exacerbation Coronary disease history of CABG and prior history of stent placement Diabetes type 2 [id number] Hypertension Hyperlipidemia Obstructive sleep apnea awaiting sleep apnea machine History of SVT status post successful ablation Prior history of smoking DVT prophylaxis Plan: Patient will be continued on antibiotics for now ceftriaxone azithromycin. Continue with IV steroids and duo nebs and follow-up oxygen status and titrate down oxygen to room air. proBNP level ordered due to complaints of feet swelling. Continue with home medications including Plavix and metoprolol and statins. Continue GI and DVT prophylaxis. Follow-up closely. Discussed with the patient and has at bedside in detail. Time with Patient: Greater than 30
[2021-09-19 15:20] LABS: Glucose,Whole Blood 212 mg/dL (70-110)
[2021-09-19 15:57] LABS: ABG Base Excess 7.4 mmol/L; ABG HCO3 34 mmol/L (21-25); ABG PH 7.27 (7.35-7.45); ABG PO2 72 mmHg (83-108); ABG TCO2 37 mmol/L (19-24); Allen Test Performed? Yes
[2021-09-19 15:58] LABS: ABG PCO2 75 mmHg (35-45)
[2021-09-19] MEDS ORDERED: methylPREDNISolone SOD SUCCI 125 MG/2 ML VIAL IV SCH (18:00)
[2021-09-19 19:19] LABS: ABG HCO3 32 mmol/L (21-25); ABG Oxygen Saturation 92.3 % (94-97); ABG PCO2 62 mmHg (35-45); ABG PH 7.33 (7.35-7.45); ABG PO2 66 mmHg (83-108); ABG TCO2 34 mmol/L (19-24); Allen Test Performed? Yes
[2021-09-19] MEDS: METOPROLOL TARTRATE 50 MG TAB PO SCH (19:19)
[2021-09-19] MEDS: HEPARIN SODIUM,PORCINE/PF 5,000 UNIT/0.5 ML SYRINGE SQ SCH (19:19)
[2021-09-19] MEDS: methylPREDNISolone SOD SUCCI 40 MG/ML 1 ML VIAL IV SCH (19:20)
[2021-09-19 19:31] LABS: Glucose,Whole Blood 277 mg/dL (70-110)
[2021-09-19 20:55] LABS: Glucose,Whole Blood 258 mg/dL (70-110)
[2021-09-19] MEDS ORDERED: INSULIN DETEMIR (LEVEMIR) 100 UNIT/ML SYR SQ SCH (21:00)
[2021-09-19] MEDS: INSULIN ASPART (NovoLOG) 100 UNIT/ML VIAL SQ SCH ×2 (21:23)
[2021-09-19] MEDS: lisinopriL 20 MG TAB PO SCH (21:23)
[2021-09-20] MEDS: methylPREDNISolone SOD SUCCI 40 MG/ML 1 ML VIAL IV SCH ×3 (00:35→17:04)
[2021-09-20] MEDS: HEPARIN SODIUM,PORCINE/PF 5,000 UNIT/0.5 ML SYRINGE SQ SCH ×3 (00:35→17:03)
[2021-09-20 06:39] LABS: Basophils # (A) 0.1 k/uL (0-0.2); Basophils % (A) 0 %; Eosinophils % (A) 0 %; HCT 44.4 % (39.0-53.0); HGB 13.7 gm/dL (13.0-17.5); Hypochromasia Marked; Lymphocytes # (A) 1.5 k/uL (1.0-4.8); Lymphocytes % (A) 8 %; MCH 29.4 pg (25.0-35.0); MCHC 30.9 g/dL (31.0-37.0); Mean Platelet Volume 8.8; Monocytes # (A) 0.7 k/uL (0-1.0); Monocytes % (A) 4 %; Neutrophils # (A) 16.9 k/uL (1.3-7.7); Neutrophils % (A) 87 %; Platelet Count 232 k/uL (150-450); RBC 4.67 m/uL (4.30-5.90); RDW 12.7 % (11.5-15.5); WBC 19.3 k/uL (3.8-10.6)
[2021-09-20 06:59] LABS: Calcium 8.5 mg/dL (8.4-10.2); Potassium 4.7 mmol/L (3.5-5.1)
[2021-09-20] MEDS: METOPROLOL TARTRATE 50 MG TAB PO SCH ×2 (07:06→17:03)
[2021-09-20] MEDS: INSULIN ASPART (NovoLOG) 100 UNIT/ML VIAL SQ SCH ×6 (07:06→21:20)
--- NOTE | 2021-09-20 08:01 | XR ---
EXAMINATION TYPE: XR chest 1V DATE OF EXAM: 09/20/2021 5:49 AM COMPARISON: Chest radiograph from one day prior. TECHNIQUE: XR chest 1V Frontal view of the chest. CLINICAL INDICATION:Male, 61 years old with history of pneumonia; FINDINGS: Lungs/Pleura: No significant change in airspace opacities projecting over the right lower lung. No ev idence of pneumothorax or pleural effusion. Pulmonary vascularity: Unremarkable. Heart/mediastinum: Cardiomediastinal silhouette is unremarkable. Left atrial appendage occlusion qian ce is present. Musculoskeletal: No acute osseous pathology. Midline sternotomy wires are noted and stable. IMPRESSION: Grossly unchanged right lower lung airspace opacities.
[2021-09-20] MEDS: AZITHROMYCIN 500 MG TAB PO SCH (08:33)
[2021-09-20] MEDS: MONTELUKAST 10 MG TAB PO SCH (08:33)
[2021-09-20] MEDS: ATORVASTATIN 80 MG TAB PO SCH (08:34)
[2021-09-20] MEDS: CLOPIDOGREL 75 MG TAB PO SCH (08:34)
[2021-09-20] MEDS: lisinopriL 20 MG TAB PO SCH (08:34)
[2021-09-20] MEDS: IPRATROPIUM-ALBUTEROL 3 ML NEB INHALATION SCH ×3 (11:05→21:06)
[2021-09-20 12:12] LABS: Glucose,Whole Blood 386 mg/dL (70-110)
--- NOTE | 2021-09-20 13:20 | P.CNPUL ---
History of Present Illness Consult date: 09/20/21 History of present illness: 61-year-old male patient with multiple medical problems and comorbidities. The patient came into the emergency department complaining of cough, greenish sputum, altered mentation was also noted and the patient become more lethargic and sleepy. There was also some increased swelling lower extremity is bilaterally. The patient came into the MRSA problem with those symptoms. In the ED, the patient a fever and his highest temperature was noted to at home prior to him coming into the hospital. Denied having any other new complaints. No angina. No palpitation. Patient has associated COVID 19 vaccination in addition to a booster shot. The patient has multiple medical problems and comorbidities for now. He was found to be hypoxic in the patient's blood gases showed an acute on top of chronic hypercapnic respiratory failure with a pH of 7.27 with a pCO2 of 75 and a pO2 of 72 and this was on FiO2 of 28%. Further investigation revealed that the patient white cell count was elevated at 21 and a patient had a hemoglobin of 14.4. BUN is 41 with a One Point and the Sodium Level Is at 139. COVID 19 Testing Was Negative. Influenza Screen Was Negative. The Patient has also a dose of Lasix in the emergency and this resulted in significant diuresis. Clinically improved and the patient's creatinine today is at 1.8. Follow-up blood gases from today showed a rate of 7.33 with a pCO2 of 62 and pO2 of 66. The chest x-ray from today is grossly unchanged and the patient has a right lower lobe airspace opacities. The patient is currently on a commercial Rocephin and Zithromax. Patient is also on IV Solu Medrol and DuoNeb nebulized treatments around the clock. Awake and alert and communicating. No signs of any CO2 narcosis and the patient seems to much more comfortable at this point in time. The patient is currently on 8 L of O2 nasal cannula with pulse ox of 94%. Hemodynamically stable. Review of Systems Constitutional: Patient does have fever at home and no chills.. Generalized weakness and fatigue. fever. Abdomen: Patient denied nausea vomiting and diarrhea and abdominal pain. Cardiovascular: Patient denies any chest pain. Positive short of breath no palpitations. Respiratory: Patient does have cough with green sputum production and shortness of breath Neurologic: Patient denied any numbness or tingling headache. He had altered mentation and he is recovered Musculoskeletal: Patient denies any complaints of joint swelling or deformity. Skin: Negative Psychiatric: Negative Endocrine: No heat or cold intolerance. No recent weight gain. Genitourinary: No dysuria or hematuria. All other 14 point ROS negative except the above Constitutional: Reports fatigue, Reports fever, Reports lethargy Eyes: denies as per HPI, denies blurred vision, denies bulging eye, denies decreased vision, denies diplopia, denies discharge, denies dry eye, denies irritation, denies itching, denies pain, denies photophobia, denies loss of peripheral vision, denies loss of vision, denies tunnel vision/blind spots Ears: deny: decreased hearing, ear discharge, earache, tinnitus Ears, nose, mouth and throat: Reports as per HPI Breasts: absent: as per HPI, gynecomastia Cardiovascular: Reports dyspnea on exertion Respiratory: Reports dyspnea Gastrointestinal: Reports as per HPI Genitourinary: Reports as per HPI Musculoskeletal: Reports as per HPI Musculoskeletal: absent: ankle pain, ankle stiffness, ankle swelling Integumentary: Reports as per HPI Neurological: Reports as per HPI Psychiatric: Reports as per HPI Hematologic/Lymphatic: Reports as per HPI Allergic/Immunologic: Reports as per HPI Past Medical History Past Medical History: Coronary Artery Disease (CAD), COPD, Diabetes Mellitus, Hyperlipidemia, Hypertension, Myocardial Infarction (SC), Osteoarthritis (OA), Pneumonia, Skin Disorder, Sleep Apnea/CPAP/BIPAP, Supraventricular Tachycardia (SVT) Additional Past Medical History / Comment(s): Hx Acute hypoxic respiratory failure, sepsis d/t GE or pneumonia, arthritis bilat hands, occ rash on face, new sleep apnea - awaiting maching, umbilical hernia, SVT with successful ablation. Last Myocardial Infarction Date:: 12-23-16 History of Any Multi-Drug Resistant Organisms: None Reported Past Surgical History: Appendectomy, Cardiac Ablation, Cardiac Valve Replacement, Coronary Bypass/CABG, Heart Catheterization With Stent, Orthopedic Surgery Additional Past Surgical History / Comment(s): Cardiac ablation for SVT, R carotid endartectomy, bilateral carpal tunnel releases, colonoscopies/benign polyps. PTCA w/ 3 stents. CABG, bypass x1, Aortic Valve replaced w/ bovine 09/28/20. Past Anesthesia/Blood Transfusion Reactions: No Reported Reaction Additional Past Anesthesia/Blood Transfusion Reaction / Comment(s): Pt has claustrophobia w/ MRI. Date of Last Stent Placement:: 12-23-16 Past Psychological History: No Psychological Hx Reported Smoking Status: Former smoker - Past Family History Father Brother(s) Family Medical History: Cancer Additional Family Medical History / Comment(s): Father from colon cancer at the age of 63 yrs. Brother had colon cancer with surgical removal. Mother Family Medical History: Coronary Artery Disease (CAD), Diabetes Mellitus, Myocardial Infarction (SC) Additional Family Medical History / Comment(s): Mother of a SC at the age of 79yrs. She had an AICD/pacer. Medications and Allergies Home Medications Medication Instructions Recorded Confirmed Type Atorvastatin [Lipitor] 80 mg PO DAILY 04/29/20 09/19/21 History Clopidogrel [Plavix] 75 mg PO DAILY 07/08/20 09/19/21 History Montelukast [Singulair] 10 mg PO DAILY 09/24/20 09/19/21 History metFORMIN HCL [Glucophage] 750 mg PO BID-W/MEALS #60 tab 10/02/20 09/19/21 Rx Insulin Glargine,Hum.rec.anlog 10 units SQ HS 09/19/21 09/19/21 History [Lantus Solostar Pen] Metoprolol Tartrate [Lopressor] 100 mg PO BID-W/MEALS 09/19/21 09/19/21 History lisinopriL [Zestril] 20 mg PO BID 09/19/21 09/19/21 History Allergies Allergy/AdvReac Type Severity Reaction Status Date / Time No Known Allergies Allergy Verified 09/19/21 14:01 Physical Exam Vitals: Vital Signs Temp Pulse Resp BP Pulse Ox FiO2 09/20/21 07:42 40 09/20/21 07:00 70 17 115/62 94 L 09/20/21 06:30 77 12 133/78 95 09/20/21 06:00 73 16 112/49 97 09/20/21 05:30 69 15 117/50 94 L 09/20/21 05:00 72 14 104/44 94 L 09/20/21 04:30 65 13 107/42 93 L 09/20/21 04:16 40 09/20/21 04:00 96.4 F L 68 16 126/57 95 40 09/20/21 03:30 66 11 L 103/53 94 L 09/20/21 03:00 104 H 100/52 94 L 09/20/21 02:30 64 117/63 95 09/20/21 02:00 68 6 L 95 09/20/21 01:30 66 7 L 92/50 94 L 09/20/21 01:00 63 7 L 132/47 95 09/20/21 00:30 69 37 H 107/47 96 09/20/21 00:00 97.5 F L 66 11 L 100/50 09/19/21 23:30 64 12 88/48 95 09/19/21 23:29 40 09/19/21 23:00 63 12 99/55 94 L 09/19/21 22:30 67 18 99/55 94 L 09/19/21 22:00 68 13 111/53 92 L 09/19/21 21:30 64 19 111/53 95 09/19/21 21:00 98.1 F 64 18 109/67 97 09/19/21 19:39 86 09/19/21 19:30 40 09/19/21 19:24 85 09/19/21 17:26 80 18 120/61 93 L 09/19/21 16:27 78 18 113/64 95 09/19/21 16:00 30 09/19/21 15:12 98.7 F 85 18 107/74 09/19/21 13:12 93 L 09/19/21 13:09 85 L 09/19/21 12:46 81 20 09/19/21 12:33 83 20 09/19/21 11:22 82 18 119/72 93 L 09/19/21 10:27 98.9 F 85 20 109/69 98 Intake and Output 09/19/21 09/20/21 09/20/21 22:59 06:59 14:59 Output Total 200 0 Balance -200 0 Output: Urine 200 0 Other: # Voids 0 0 Weight 123 kg Obese, calm and comfortable, nonacute distress, BMI 37.8 Head exam was generally normal. There was no scleral icterus or corneal arcus. Mucous membranes were moist. Neck was supple and without jugular venous distension, thyromegaly, or carotid bruits. Carotids were easily palpable bilaterally. There was no adenopathy. Mallampati class IV Cardiac exam revealed the PMI to be normally situated and sized. The rhythm was regular and no extrasystoles were noted during several minutes of auscultation. The first and second heart sounds were normal and physiologic splitting of the second heart sound was noted. There were no murmurs, rubs, clicks, or gallops. Lungs thousand diminished in the patient's scattered rhonchi and scattered external wheezes throughout the lung smith bilaterally Abdominal exam revealed normal bowel sounds. The abdomen was soft, non-tender, and without masses, organomegaly, or appreciable enlargement of the abdominal aorta. Examination of the extremities revealed easily palpable radial, femoral and pedal pulses. There was no cyanosis, clubbing or edema. Examination of the skin revealed no evidence of significant rashes, suspicious appearing nevi or other concerning lesions. Neurologically, the patient is awake and alert and the patient does not have any focal neurological deficit. Cranial nerves are essentially intact. Results - Laboratory Findings CBC and BMP: 09/20/21 06:06 09/20/21 06:06 ABG ABG pH 7.33 (7.35-7.45) L 09/19/21 19:16 ABG pCO2 62 mmHg (35-45) H 09/19/21 19:16 ABG pO2 66 mmHg (83-108) L 09/19/21 19:16 ABG O2 Saturation 92.3 % (94-97) L 09/19/21 19:16 Abnormal lab findings: Abnormal Labs 09/19/21 09/19/21 09/19/21 09:07 10:25 15:19 WBC 21.5 H MCHC 30.8 L Neutrophils # 17.2 H Monocytes # 2.2 H Basophils # 0.3 H ABG pH ABG pCO2 ABG pO2 ABG HCO3 ABG Total CO2 ABG O2 Saturation Chloride 97 L Carbon Dioxide 35 H BUN 41 H Creatinine Glucose 212 H POC Glucose (mg/dL) 212 H 09/19/21 09/19/21 09/19/21 15:53 19:16 19:26 WBC MCHC Neutrophils # Monocytes # Basophils # ABG pH 7.27 L 7.33 L ABG pCO2 75 H* 62 H ABG pO2 72 L 66 L ABG HCO3 34 H 32 H ABG Total CO2 37 H 34 H ABG O2 Saturation 93.0 L 92.3 L Chloride Carbon Dioxide BUN Creatinine Glucose POC Glucose (mg/dL) 277 H 09/19/21 09/20/21 09/20/21 20:54 06:06 06:06 WBC 19.3 H MCHC 30.9 L Neutrophils # 16.9 H Monocytes # Basophils # ABG pH ABG pCO2 ABG pO2 ABG HCO3 ABG Total CO2 ABG O2 Saturation Chloride Carbon Dioxide BUN 69 H Creatinine 1.83 H Glucose 253 H POC Glucose (mg/dL) 258 H - Diagnostic Findings Chest x-ray: image reviewed Assessment and Plan Plan: Acute hypoxic and hypercapnic respiratory failure , likely a right lower lobe pneumonia is also considered in this patient. Patient had presented with an acute on top of chronic hypoxic and hypercapnic respiratory failure and subsequent blood gases from today shows improvement and acid base status. Altered mentation, improving Fever, currently afebrile SERGIO, given lasix 40 mg IV x1, creatinine is up to 1.8 Acute COPD exacerbation, baseline FEV1 40% Coronary disease history of CABG and prior history of stent placement, CABG x1, LIU to LAD, 2020 Severe , previous AVR (bioprsthetic) 2020 Diabetes type 2 insulin-dependent Hypertension Hyperlipidemia Obstructive sleep apnea, AHI of 58 awaiting sleep apnea machine History of SVT status post successful ablation Prior history of smoking COVID 19 in apr 2020 CEA, right sided SVT with pevious ablation Previous CVA Plan Rocephine and Zithromax BIPAP on and off during the day. Wean fio2, he is on 8 L per minute nasal cannula Duoneb IV solumedrol Levemir 10 U BID and he Insulin sliding scale coverage check UA Check Procal Hold metformin and Lisinopril Monitor renal function Keep in the ICU and monitor fever and mental status
[2021-09-20 16:26] LABS: Glucose,Whole Blood 501 mg/dL (70-110)
[2021-09-20 16:32] LABS: Glucose,Whole Blood 506 mg/dL (70-110)
[2021-09-20] MEDS ORDERED: INSULIN ASPART (NovoLOG) 100 UNIT/ML VIAL SQ SCH (17:30)
[2021-09-20 18:49] LABS: Glucose,Whole Blood 461 mg/dL (70-110)
[2021-09-20 20:28] LABS: Glucose,Whole Blood 476 mg/dL (70-110)
[2021-09-20] MEDS ORDERED: INSULIN DETEMIR (LEVEMIR) 100 UNIT/ML SYR SQ SCH (21:00)
[2021-09-20] MEDS: INSULIN DETEMIR (LEVEMIR) 100 UNIT/ML SYR SQ SCH (22:12)
[2021-09-21] MEDS: HEPARIN SODIUM,PORCINE/PF 5,000 UNIT/0.5 ML SYRINGE SQ SCH ×4 (00:30→23:48)
[2021-09-21] MEDS: methylPREDNISolone SOD SUCCI 40 MG/ML 1 ML VIAL IV SCH ×4 (00:35→23:48)
--- NOTE | 2021-09-21 05:17 | P.PN ---
Subjective Progress Note Date: 09/20/21 Patient is a 62-year-old male with a known history of coronary disease status post CABG about 1 year ago, history of stent placement, hypertension, hyperlipidemia, diabetes type 2 [id number], obstructive sleep apnea, history of SVT status post ablation and prior history of smoking and COPD pr esents to ER with complaints of worsening shortness of breath for the past 2 days. Patient was also coughing up greenish colored sputum production. Patient has been having confusion and sleeping more as per his at bedside. Also noticed some increased swelling in the feet. Presented to ER due to worsening symptoms. Patient states that he had a fever yesterday 102 F and again today and pre sented to ER. Denies any complaints of nausea or vomiting. No abdominal pain or diarrhea. Denies any dizziness or lightheadedness. No recent illnesses. Patient did have COVID-1 vaccine and booster shot.. Patient denies any prior history of CHF. Chest x-ray showed there is increased density right middle lung base which may reflect developing infiltrate. Correlate clinically. EKG showed sinus tachycardia On admission patient was tachycardic and pulse ox 87% on room air. T-max 102.8. Laboratory showed WBC 21.5 hemoglobin 14.4 and platelets 260 neutrophils 17.2 Sodium 139 potassium 4.4 chloride 97 bicarb 35 BUN 41 creatinine 1.2 and blood sugar is 212 Loramyc are not elevated and COVID-19 PCR and influenza a and B PCR not detected. 09/20/2021 Patient is seen and evaluated in follow-up this morning currently sitting up in the chair maintained on 8 L high flow nasal cannula. Pulmonary following closely and chest xray continues to show right lower lung opacities. Patient continues with shortness of breath and cough with some phlegm production. Patient did have fevers last night. Patient also with worsening kidney functions and will monitor closely with repeat am labs ordered. Patient was given a dose of lasix today. Patient is tolerating diet with no reported nausea or vomiting. Patient encouraged to increase activity as tolerated. Continue with bipap as needed. Wean FI02 as tolerated. Afebrile today thus far and is maintained on zithromax and IV rocephin. Patient denies chest pain or palpitations. Review of systems: Constitutional: No reports of fatigue, fever, or chills Cardiovascular: No reports of chest pain or palpitations Respiratory: reports of shortness of breath and cough GI: No reports of nausea, vomiting, or diarrhea : No reports of dysuria or retention Neurovascular: reports of generalized weakness All medications have been reviewed Active Medications Albuterol/Ipratropium (Ipratropium-Albuterol 3 Ml Neb) 3 ml INHALATION RT-Q4H PRN PRN Reason: Shortness Of Breath Or Wheezing Last Admin: 09/19/21 19:24 Dose: 3 ml Albuterol/Ipratropium (Ipratropium-Albuterol 3 Ml Neb) 3 ml INHALATION RT-QID [facility] Last Admin: 09/20/21 11:05 Dose: 3 ml Atorvastatin Calcium (Atorvastatin 80 Mg Tab) 80 mg PO DAILY [facility] Last Admin: 09/20/21 08:34 Dose: 80 mg Azithromycin (Azithromycin 500 Mg Tab) 500 mg PO DAILY [facility]; Protocol Stop: 09/21/21 09:01 Last Admin: 09/20/21 08:33 Dose: 500 mg Clopidogrel Bisulfate (Clopidogrel 75 Mg Tab) 75 mg PO DAILY [facility] Last Admin: 09/20/21 08:34 Dose: 75 mg Heparin Sodium (Porcine) (Heparin Sodium,Porcine/Pf 5,000 Unit/0.5 Ml Syringe) 5,000 unit SQ Q8HR [facility] Last Admin: 09/20/21 08:33 Dose: 5,000 unit Ceftriaxone Sodium 2 gm/ (Sodium Chloride) 50 mls @ 100 mls/hr IVPB Q24HR [facility]; Protocol Stop: 09/23/21 09:29 Last Admin: 09/20/21 08:33 Dose: 100 mls/hr Insulin Aspart (Insulin Aspart (Novolog) 100 Unit/Ml Vial) 0 unit SQ ACHS [facility]; Protocol Last Admin: 09/20/21 12:19 Dose: 7 unit Insulin Detemir (Insulin Detemir (Levemir) 100 Unit/Ml Syr) 10 unit SQ BI D@0700,2100 [facility] Methylprednisolone Sodium Succinate (Methylprednisolone Sod Succi 40 Mg/Ml 1 Ml Vial) 40 mg IV Q8HR [facility] Last Admin: 09/20/21 08:32 Dose: 40 mg Metoprolol Tartrate (Metoprolol Tartrate 50 Mg Tab) 100 mg PO BID-W/MEALS [facility] Last Admin: 09/20/21 07:06 Dose: 100 mg Miscellaneous Information (Pneumonia Protocol Utilized 1 Each Misc) 1 each PO ONCE PRN PRN Reason: Per Protocol Montelukast Sodium (Montelukast 10 Mg Tab) 10 mg PO DAILY [facility] Last Admin: 09/20/21 08:33 Dose: 10 mg PHYSICAL EXAMINATION: Patient is sitting up in the chair, no acute distress, awake alert and oriented x3.. HEENT: Normocephalic. Neck is supple. Pupils reactive. Nostrils clear. Oral cavity is moist. Neck reveals no JVD, carotid bruits, or thyromegaly. CHEST EXAMINATION: Trachea is central. Symmetrical expansion. Bilateral expiratory wheezing and scattered rhonchi and crackles.. CARDIAC: Normal S1, S2 with no gallops. No murmurs ABDOMEN: Soft. Bowel sounds normal. No organomegaly. No abdominal bruits. Extremities: Trace bilateral pedal edema. No clubbing or cyanosis Neurologically awake, alert, oriented x3 with well-coordinated movements. No gross focal deficits noted Skin: No rash or skin lesions. Psychiatric: Cooperative. Non-suicidal Musculoskeletal: No joint swelling or deformity. Normal range of motion. Assessment: Acute right lower lobe pneumonia. Severe sepsis secondary to above Acute hypoxic and hypercapnic respiratory failure requiring oxygen at 3 L via nasal cannula on admission, currently 8L HF and bipap as needed Acute COPD exacerbation Coronary disease history of CABG and prior history of stent placement Diabetes type 2 [id number] Hypertension Hyperlipidemia Obstructive sleep apnea awaiting sleep apnea machine History of SVT status post successful ablation Prior history of smoking DVT prophylaxis Plan: Patient will be continued on antibiotics for now ceftriaxone azithromycin as patient had fevers overnight. Patient also continues with cough. Continue with IV steroids and duo nebs and wean FI02 as tolerated. currently on 8L HF and bipap at night and as needed. proBNP level ordered due to complaints of feet swelling and was given a dose of IV lasix. Kidney functions trending up and will hold metformin and lisinopril. Recommend repeat am labs. The impression and plan of care has been dictated by Willow Bolaños, Nurse Practitioner as directed. Dr. Darío MD I have performed a history and examination and MDM of this patient, discussed the same with the dictator, and agree with the dictator's assessment and plan as written ,documented as a scribe. Based on total visit time, I have performed more than 50% of the visit. Objective - Vital Signs Vital signs: Vital Signs Temp 96.4 F L 09/20/21 04:00 Pulse 70 09/20/21 07:00 Resp 17 09/20/21 07:00 BP 115/62 09/20/21 07:00 Pulse Ox 94 L 09/20/21 07:00 FiO2 40 09/20/21 07:42 Intake & Output 09/19/21 09/20/21 09/20/21 18:59 06:59 18:59 Output Total 200 0 Balance -200 0 Weight 80 kg 123 kg Output: Urine 200 0 Other: # Voids 0 0 - Labs CBC & Chem 7: 09/20/21 06:06 09/20/21 06:06 Labs: Abnormal Lab Results - Last 24 Hours (Table) 09/19/21 09/19/21 09/19/21 Range/Units 09:07 10:25 15:19 WBC 21.5 H (3.8-10.6) k/uL MCHC 30.8 L (31.0-37.0) g/dL Neutrophils # 17.2 H (1.3-7.7) k/uL Monocytes # 2.2 H (0-1.0) k/uL Basophils # 0.3 H (0-0.2) k/uL ABG pH (7.35-7.45) ABG pCO2 (35-45) mmHg ABG pO2 (83-108) mmHg ABG HCO3 (21-25) mmol/L ABG Total CO2 (19-24) mmol/L ABG O2 Saturation (94-97) % Chloride 97 L (98-107) mmol/L Carbon Dioxide 35 H (22-30) mmol/L BUN 41 H (9-20) mg/dL Creatinine (0.66-1.25) mg/dL Glucose 212 H (74-99) mg/dL POC Glucose (mg/dL) 212 H (70-110) mg/dL 09/19/21 09/19/21 09/19/21 Range/Units 15:53 19:16 19:26 WBC (3.8-10.6) k/uL MCHC (31.0-37.0) g/dL Neutrophils # (1.3-7.7) k/uL Monocytes # (0-1.0) k/uL Basophils # (0-0.2) k/uL ABG pH 7.27 L 7.33 L (7.35-7.45) ABG pCO2 75 H* 62 H (35-45) mmHg ABG pO2 72 L 66 L (83-108) mmHg ABG HCO3 34 H 32 H (21-25) mmol/L ABG Total CO2 37 H 34 H (19-24) mmol/L ABG O2 Saturation 93.0 L 92.3 L (94-97) % Chloride (98-107) mmol/L Carbon Dioxide (22-30) mmol/L BUN (9-20) mg/dL Creatinine (0.66-1.25) mg/dL Glucose (74-99) mg/dL POC Glucose (mg/dL) 277 H (70-110) mg/dL 09/19/21 09/20/21 09/20/21 Range/Units 20:54 06:06 06:06 WBC 19.3 H (3.8-10.6) k/uL MCHC 30.9 L (31.0-37.0) g/dL Neutrophils # 16.9 H (1.3-7.7) k/uL Monocytes # (0-1.0) k/uL Basophils # (0-0.2) k/uL ABG pH (7.35-7.45) ABG pCO2 (35-45) mmHg ABG pO2 (83-108) mmHg ABG HCO3 (21-25) mmol/L ABG Total CO2 (19-24) mmol/L ABG O2 Saturation (94-97) % Chloride (98-107) mmol/L Carbon Dioxide (22-30) mmol/L BUN 69 H (9-20) mg/dL Creatinine 1.83 H (0.66-1.25) mg/dL Glucose 253 H (74-99) mg/dL POC Glucose (mg/dL) 258 H (70-110) mg/dL Microbiology - Last 24 Hours (Table) 09/19/21 19:29 Gram Stain - Preliminary Sputum Sputum Culture - Preliminary
[2021-09-21 06:19] LABS: Basophils # (A) 0.1 k/uL (0-0.2); Basophils % (A) 0 %; Eosinophils % (A) 0 %; HCT 45.1 % (39.0-53.0); HGB 13.5 gm/dL (13.0-17.5); Hypochromasia Slight; Lymphocytes # (A) 1.1 k/uL (1.0-4.8); Lymphocytes % (A) 5 %; MCH 27.5 pg (25.0-35.0); MCHC 29.8 g/dL (31.0-37.0); MCV 92.3 fL (80.0-100.0); Monocytes # (A) 1.1 k/uL (0-1.0); Monocytes % (A) 5 %; Neutrophils # (A) 19.2 k/uL (1.3-7.7); Neutrophils % (A) 88 %; Platelet Count 279 k/uL (150-450); RBC 4.89 m/uL (4.30-5.90); RDW 12.5 % (11.5-15.5); WBC 21.7 k/uL (3.8-10.6)
[2021-09-21 06:37] LABS: African American GFR (CKD) >90 (>60 ml/min/1.73 sqM); Anion Gap 6 mmol/L; Blood Urea Nitrogen 62 mg/dL (9-20); Calcium 8.8 mg/dL (8.4-10.2); Carbon Dioxide 34 mmol/L (22-30); Chloride 99 mmol/L (98-107); Glucose 259 mg/dL (74-99); Non-African American GFR(CKD) 80 (>60 ml/min/1.73 sqM); Potassium 4.7 mmol/L (3.5-5.1); Sodium 139 mmol/L (137-145)
[2021-09-21 06:56] LABS: Glucose,Whole Blood 232 mg/dL (70-110)
[2021-09-21] MEDS ORDERED: INSULIN DETEMIR (LEVEMIR) 100 UNIT/ML SYR SQ SCH (07:00)
[2021-09-21] MEDS: METOPROLOL TARTRATE 50 MG TAB PO SCH ×2 (07:04→17:04)
[2021-09-21] MEDS: INSULIN ASPART (NovoLOG) 100 UNIT/ML VIAL SQ SCH ×8 (07:04→21:52)
[2021-09-21] MEDS: INSULIN DETEMIR (LEVEMIR) 100 UNIT/ML SYR SQ SCH ×2 (07:04→21:52)
[2021-09-21] MEDS: IPRATROPIUM-ALBUTEROL 3 ML NEB INHALATION SCH ×4 (07:52→19:38)
[2021-09-21] MEDS: ATORVASTATIN 80 MG TAB PO SCH (09:19)
[2021-09-21] MEDS: MONTELUKAST 10 MG TAB PO SCH (09:19)
[2021-09-21] MEDS: CLOPIDOGREL 75 MG TAB PO SCH (09:19)
[2021-09-21] MEDS: AZITHROMYCIN 500 MG TAB PO SCH (09:25)
[2021-09-21] MEDS: lisinopriL 20 MG TAB PO SCH (10:33)
[2021-09-21] MEDS: metFORMIN 500 MG TAB PO SCH ×2 (10:34→17:03)
[2021-09-21 11:55] LABS: Glucose,Whole Blood 264 mg/dL (70-110)
--- NOTE | 2021-09-21 12:19 | P.PN ---
Subjective Progress Note Date: 09/21/21 61-year-old male patient with multiple medical problems and comorbidities. The patient came into the emergency department complaining of cough, greenish sputum, altered mentation was also noted and the patient become more lethargic and sleepy. There was also some increased swelling lower extremity is b ilaterally. The patient came into the MRSA problem with those symptoms. In the ED, the patient a fever and his highest temperature was noted to at home prior to him coming into the hospital. Denied having any other new complaints. No angina. No palpitation. Patient has associated COVID 19 vaccination in addition to a booster shot. The patient has multiple medical problems and comorbidities for now. He was found to be hypoxic in the patient's blood gases showed an acute on top of chronic hypercapnic respiratory failure with a pH of 7.27 with a pCO2 of 75 and a pO2 of 72 and this was on FiO2 of 28%. Further investigation revealed that the patient white cell count was elevated at 21 and a patient had a hemoglobin of 14.4. BUN is 41 with a One Point and the Sodium Level Is at 139. COVID 19 Testing Was Negative. Influenza Screen Was Negative. The Patient has also a dose of Lasix in the emergency and this resulted in significant diuresis. Clinically improved and the patient's creatinine today is at 1.8. Follow-up blood gases from today showed a rate of 7.33 with a pCO2 of 62 and pO2 of 66. The chest x-ray from today is grossly unchanged and the patient has a right lower lobe airspace opacities. The patient is currently on a commercial Rocephin and Zithromax. Patient is also on IV Solu Medrol and DuoNeb nebulized treatments around the clock. Awake and alert and comm unicating. No signs of any CO2 narcosis and the patient seems to much more comfortable at this point in time. The patient is currently on 8 L of O2 nasal cannula with pulse ox of 94%. Hemodynamically stable. On today's evaluation of 09/21/2021, the patient is doing well. The patient has been feeling less short of breath compared to yesterday. No new complaints otherwise for now. On examination, he is supple bronchospastic and wheezy. Meanwhile, the patient is being treated with a combination of DuoNeb nebulized treatments around the clock, IV Solu Medrol 4 mg every 8 hours and the patient was covered empirically with IV Rocephin. The patient showed improvement in renal function and creatinine is down to 1.0 with a mean of 60 to white cell count of 21. Blood sugars are slightly elevated and the patient remains on Levemir insulin 15 units twice a day in addition to 10 units of NovoLog with meals. Metformin and lisinopril can be restarted as the patient's renal function is also normalized. Objective - Vital Signs Vital signs: Vital Signs Temp 97.8 F 09/21/21 08:00 Pulse 65 09/21/21 09:00 Resp 15 09/21/21 09:00 BP 147/78 09/21/21 09:00 Pulse Ox 95 09/21/21 09:00 FiO2 40 09/21/21 01:00 Intake & Output 09/20/21 09/21/21 09/21/21 18:59 06:59 18:59 Intake Total 3010 520 Output Total 1175 450 Balance 1835 70 Weight 123 kg Intake: Oral 3010 520 Output: Urine 1175 450 Other: # Voids 0 0 1 - Exam Obese, calm and comfortable, nonacute distress, BMI 37.8 Head exam was generally normal. There was no scleral icterus or corneal arcus. Mucous membranes were moist. Neck was supple and without jugular venous distension, thyromegaly, or carotid bruits. Carotids were easily palpable bilaterally. There was no adenopathy. Mallampati class IV Cardiac exam revealed the PMI to be normally situated and sized. The rhythm was regular and no extrasystoles were noted during several minutes of auscultation. The first and second heart sounds were normal and physiologic splitting of the second heart sound was noted. There were no murmurs, rubs, clicks, or gallops. Lungs thousand diminished in the patient's scattered rhonchi and scattered external wheezes throughout the lung smith bilaterally Abdominal exam revealed normal bowel sounds. The abdomen was soft, non-tender, and without masses, organomegaly, or appreciable enlargement of the abdominal aorta. Examination of the extremities revealed easily palpable radial, femoral and pedal pulses. There was no cyanosis, clubbing or edema. Examination of the skin revealed no evidence of significant rashes, suspicious appearing nevi or other concerning lesions. Neurologically, the patient is awake and alert and the patient does not have any focal neurological deficit. Cranial nerves are essentially intact. - Labs CBC & Chem 7: 09/21/21 05:50 09/21/21 05:50 Labs: Abnormal Lab Results - Last 24 Hours (Table) 09/19/21 09/20/21 09/20/21 Range/Units 10:25 12:11 16:24 WBC (3.8-10.6) k/uL MCHC (31.0-37.0) g/dL Neutrophils # (1.3-7.7) k/uL Monocytes # (0-1.0) k/uL Carbon Dioxide (22-30) mmol/L BUN (9-20) mg/dL Glucose (74-99) mg/dL POC Glucose (mg/dL) 386 H 501 H (70-110) mg/dL Procalcitonin 0.55 H (0.02-0.09) ng/mL 09/20/21 09/20/21 09/20/21 Range/Units 16:27 18:47 20:26 WBC (3.8-10.6) k/uL MCHC (31.0-37.0) g/dL Neutrophils # (1.3-7.7) k/uL Monocytes # (0-1.0) k/uL Carbon Dioxide (22-30) mmol/L BUN (9-20) mg/dL Glucose (74-99) mg/dL POC Glucose (mg/dL) 506 H 461 H 476 H (70-110) mg/dL Procalcitonin (0.02-0.09) ng/mL 09/21/21 09/21/21 09/21/21 Range/Units 05:50 05:50 06:54 WBC 21.7 H (3.8-10.6) k/uL MCHC 29.8 L (31.0-37.0) g/dL Neutrophils # 19.2 H (1.3-7.7) k/uL Monocytes # 1.1 H (0-1.0) k/uL Carbon Dioxide 34 H (22-30) mmol/L BUN 62 H (9-20) mg/dL Glucose 259 H (74-99) mg/dL POC Glucose (mg/dL) 232 H (70-110) mg/dL Procalcitonin (0.02-0.09) ng/mL Microbiology - Last 24 Hours (Table) 09/19/21 10:25 Blood Culture - Preliminary Blood No Growth after 24 hours 09/19/21 09:30 Blood Culture - Preliminary Blood No Growth after 24 hours 09/19/21 19:29 Gram Stain - Preliminary Sputum Sputum Culture - Preliminary Assessment and Plan Plan: Acute hypoxic and hypercapnic respiratory failure , likely a right lower lobe pneumonia is also considered in this patient. Patient had presented with an acute on top of chronic hypoxic and hypercapnic respiratory failure and subsequent blood gases from today shows improvement and acid base status. His morning the patient is on 6 L of oxygen by nasal cannula and his aspirin status is stable. His current pulse ox is around 94%., Should be able to wean down further the FiO2. Altered mentation, improving, Completely back to normal Fever, currently afebrile SERGIO, recovering in the creatinine is down to 1.0 Acute COPD exacerbation, baseline FEV1 40% Coronary disease history of CABG and prior history of stent placement, CABG x1, LIU to LAD, 2020 Severe , previous AVR (bioprsthetic) 2020 Diabetes type 2 insulin-dependent Hypertension Hyperlipidemia Obstructive sleep apnea, AHI of 58 awaiting sleep apnea machine History of SVT status post successful ablation Prior history of smoking COVID 19 in apr 2020 CEA, right sided SVT with pevious ablation Previous CVA Plan Rocephine and Zithromax BIPAP on and off during the day. Wean fio2, he is on 4 L per minute nasal cannula Duoneb IV solumedrol 40 mg q 8 Levemir 20 U BID and he Insulin sliding scale coverage, in addition to 10 units of NovoLog with meals check UA Check Procal was 0.55 Restart metformin and Lisinopril Keep in the ICU right probably mainly related. 5 L
[2021-09-21 15:33] LABS: Appearance,Urine Clear (Clear); Bilirubin,Urine Negative (Negative); Blood,Urine Negative (Negative); Color,Urine Yellow; Glucose,Urine (UA) Negative (Negative); Ketones,Urine Negative (Negative); Leukocyte Esterase,Urine Negative (Negative); Nitrite,Urine Negative (Negative); Protein,Urine Trace (Negative); Specific Gravity,Urine 1.027 (1.001-1.035); Urobilinogen,Urine <2.0 mg/dL (<2.0)
[2021-09-21 16:51] LABS: Glucose,Whole Blood 292 mg/dL (70-110)
--- NOTE | 2021-09-21 20:12 | P.PN ---
Subjective Progress Note Date: 09/21/21 Patient is a 62-year-old male with a known history of coronary disease status post CABG about 1 year ago, history of stent placement, hypertension, hyperlipidemia, diabetes type 2 [id number], obstructive sleep apnea, history of SVT status post ablation and prior history of smoking and COPD pr esents to ER with complaints of worsening shortness of breath for the past 2 days. Patient was also coughing up greenish colored sputum production. Patient has been having confusion and sleeping more as per his at bedside. Also noticed some increased swelling in the feet. Presented to ER due to worsening symptoms. Patient states that he had a fever yesterday 102 F and again today and pre sented to ER. Denies any complaints of nausea or vomiting. No abdominal pain or diarrhea. Denies any dizziness or lightheadedness. No recent illnesses. Patient did have COVID-1 vaccine and booster shot.. Patient denies any prior history of CHF. Chest x-ray showed there is increased density right middle lung base which may reflect developing infiltrate. Correlate clinically. EKG showed sinus tachycardia On admission patient was tachycardic and pulse ox 87% on room air. T-max 102.8. Laboratory showed WBC 21.5 hemoglobin 14.4 and platelets 260 neutrophils 17.2 Sodium 139 potassium 4.4 chloride 97 bicarb 35 BUN 41 creatinine 1.2 and blood sugar is 212 Loramyc are not elevated and COVID-19 PCR and influenza a and B PCR not detected. 09/20/2021 Patient is seen and evaluated in follow-up this morning currently sitting up in the chair maintained on 8 L high flow nasal cannula. Pulmonary following closely and chest xray continues to show right lower lung opacities. Patient continues with shortness of breath and cough with some phlegm production. Patient did have fevers last night. Patient also with worsening kidney functions and will monitor closely with repeat am labs ordered. Patient was given a dose of lasix today. Patient is tolerating diet with no reported nausea or vomiting. Patient encouraged to increase activity as tolerated. Continue with bipap as needed. Wean FI02 as tolerated. Afebrile today thus far and is maintained on zithromax and IV rocephin. Patient denies chest pain or palpitations. 09/21/2021 Patient continues to be in the ICU under close observation with pulmonary closing supervisor following. Working on weaning FiO2 as tolerated and maintained on 6 L high flow. Patient also continues with breathing inhalational treatments and IV steroids which have been titrated down. Patient also continues with BiPAP at night and follows closely with pulmonary in the outpatient setting working on a special device for the home setting which is scheduled to be delivered this week sometime. The cultures remain negative and preliminary sputum cultures pending at this time and patient will continue on IV ceftriaxone for now. WBC elevated at 21 although creatinine is improved and is currently 1.0 today. Patient is afebrile and denies any worsening chest pain or shortness of breath. Tolerating diet with no reports of nausea or vomiting noted. Review of systems: Constitutional: No reports of fatigue, fever, or chills Cardiovascular: No reports of chest pain or palpitations Respiratory: reports of shortness of breath and cough GI: No reports of nausea, vomiting, or diarrhea : No reports of dysuria or retention Neurovascular: reports of generalized weakness All medications have been reviewed Active Medications Albuterol/Ipratropium (Ipratropium-Albuterol 3 Ml Neb) 3 ml INHALATION RT-Q4H PRN PRN Reason: Shortness Of Breath Or Wheezing Last Admin: 09/19/21 19:24 Dose: 3 ml Albuterol/Ipratropium (Ipratropium-Albuterol 3 Ml Neb) 3 ml INHALATION RT-QID REPLACED BY [facility] Last Admin: 09/21/21 07:52 Dose: 3 ml Atorvastatin Calcium (Atorvastatin 80 Mg Tab) 80 mg PO DAILY REPLACED BY [facility] Last Admin: 09/21/21 09:19 Dose: 80 mg Clopidogrel Bisulfate (Clopidogrel 75 Mg Tab) 75 mg PO DAILY REPLACED BY [facility] Last Admin: 09/21/21 09:19 Dose: 75 mg Heparin Sodium (Porcine) (Heparin Sodium,Porcine/Pf 5,000 Unit/0.5 Ml Syringe) 5,000 unit SQ Q8HR REPLACED BY [facility] Last Admin: 09/21/21 08:47 Dose: 5,000 unit Ceftriaxone Sodium 2 gm/ (Sodium Chloride) 50 mls @ 100 mls/hr IVPB Q24HR [facility]; Protocol Stop: 09/23/21 09:29 Last Admin: 09/20/21 08:33 Dose: 100 mls/hr Insulin Aspart (Insulin Aspart (Novolog) 100 Unit/Ml Vial) 0 unit SQ ACHS [facility]O; Protocol Last Admin: 07/19/22 07:04 Dose: 5 unit Insulin Aspart (Insulin Aspart (Novolog) 100 Unit/Ml Vial) 10 unit SQ ACHS REPLACED BY [facility] Last Admin: 09/21/21 07:05 Dose: 10 unit Insulin Detemir (Insulin Detemir (Levemir) 100 Unit/Ml Syr) 20 unit SQ BID@0700,2100 REPLACED BY [facility] Lisinopril (Lisinopril 20 Mg Tab) 20 mg PO DAILY REPLACED BY [facility] Metformin HCl (Metformin 500 Mg Tab) 750 mg PO BID-W/MEALS REPLACED BY [facility] Methylprednisolone Sodium Succinate (Methylprednisolone Sod Succi 40 Mg/Ml 1 Ml Vial) 40 mg IV Q8HR REPLACED BY [facility] Last Admin: 09/21/21 08:45 Dose: 40 mg Metoprolol Tartrate (Metoprolol Tartrate 50 Mg Tab) 100 mg PO BID-W/MEALS REPLACED BY [facility] Last Admin: 09/21/21 07:04 Dose: 100 mg Miscellaneous Information (Pneumonia Protocol Utilized 1 Each Misc) 1 each PO ONCE PRN PRN Reason: Per Protocol Montelukast Sodium (Montelukast 10 Mg Tab) 10 mg PO DAILY REPLACED BY [facility] Last Admin: 09/21/21 09:19 Dose: 10 mg PHYSICAL EXAMINATION: Patient is sitting up in the chair, no acute distress, awake alert and oriented x3.. HEENT: Normocephalic. Neck is supple. Pupils reactive. Nostrils clear. Oral cavity is moist. Neck reveals no JVD, carotid bruits, or thyromegaly. CHEST EXAMINATION: Trachea is central. Symmetrical expansion. Bilateral expiratory wheezing and scattered rhonchi and crackles.. CARDIAC: Normal S1, S2 with no gallops. No murmurs ABDOMEN: Soft. Bowel sounds normal. No organomegaly. No abdominal bruits. Extremities: Trace bilateral pedal edema. No clubbing or cyanosis Neurologically awake, alert, oriented x3 with well-coordinated movements. No gross focal deficits noted Skin: No rash or skin lesions. Psychiatric: Cooperative. Non-suicidal Musculoskeletal: No joint swelling or deformity. Normal range of motion. Assessment: Acute right lower lobe pneumonia. Severe sepsis secondary to above Acute hypoxic and hypercapnic respiratory failure requiring oxygen at 3 L via nasal cannula on admission, currently 6L HF and bipap as needed Acute COPD exacerbation Coronary disease history of CABG and prior history of stent placement Diabetes type 2 [id number] Hypertension Hyperlipidemia Obstructive sleep apnea awaiting sleep apnea machine History of SVT status post successful ablation Prior history of smoking DVT prophylaxis Plan: Patient will be continued on antibiotics for now ceftriaxone azithromycin as patient continues with cough and elevated WBC. Patient is afebrile today. Con tinue with IV steroids and duo nebs and wean FI02 as tolerated. currently on 6L HF and bipap at night and as needed. Kidney functions improving and will continue to hold metformin and lisinopril. Recommend repeat am labs. The impression and plan of care has been dictated by Willow Bolaños, Nurse Practitioner as directed. Dr. Darío MD I have performed a history and examination and MDM of this patient, discussed the same with the dictator, and agree with the dictator's assessment and plan as written ,documented as a scribe. Based on total visit time, I have performed more than 50% of the visit. Objective - Vital Signs Vital signs: Vital Signs Temp 97.8 F 09/21/21 08:00 Pulse 65 09/21/21 09:00 Resp 15 09/21/21 09:00 BP 147/78 09/21/21 09:00 Pulse Ox 95 09/21/21 09:00 FiO2 40 09/21/21 01:00 Intake & Output 09/20/21 09/21/21 09/21/21 18:59 06:59 18:59 Intake Total 3010 520 Output Total 1175 450 Balance 1835 70 Weight 123 kg Intake: Oral 3010 520 Output: Urine 1175 450 Other: # Voids 0 0 1 - Labs CBC & Chem 7: 09/21/21 05:50 09/21/21 05:50 Labs: Abnormal Lab Results - Last 24 Hours (Table) 09/20/21 09/20/21 09/20/21 Range/Units 12:11 16:24 16:27 WBC (3.8-10.6) k/uL MCHC (31.0-37.0) g/dL Neutrophils # (1.3-7.7) k/uL Monocytes # (0-1.0) k/uL Carbon Dioxide (22-30) mmol/L BUN (9-20) mg/dL Glucose (74-99) mg/dL POC Glucose (mg/dL) 386 H 501 H 506 H (70-110) mg/dL 07/18/22 07/18/22 07/19/22 Range/Units 18:47 20:26 05:50 WBC 21.7 H (3.8-10.6) k/uL MCHC 29.8 L (31.0-37.0) g/dL Neutrophils # 19.2 H (1.3-7.7) k/uL Monocytes # 1.1 H (0-1.0) k/uL Carbon Dioxide (22-30) mmol/L BUN (9-20) mg/dL Glucose (74-99) mg/dL POC Glucose (mg/dL) 461 H 476 H (70-110) mg/dL 09/21/21 09/21/21 Range/Units 05:50 06:54 WBC (3.8-10.6) k/uL MCHC (31.0-37.0) g/dL Neutrophils # (1.3-7.7) k/uL Monocytes # (0-1.0) k/uL Carbon Dioxide 34 H (22-30) mmol/L BUN 62 H (9-20) mg/dL Glucose 259 H (74-99) mg/dL POC Glucose (mg/dL) 232 H (70-110) mg/dL Microbiology - Last 24 Hours (Table) 09/19/21 10:25 Blood Culture - Preliminary Blood No Growth after 24 hours 09/19/21 09:30 Blood Culture - Preliminary Blood No Growth after 24 hours 09/19/21 19:29 Gram Stain - Preliminary Sputum Sputum Culture - Preliminary
[2021-09-21 20:13] LABS: Glucose,Whole Blood 372 mg/dL (70-110)
[2021-09-22 05:46] LABS: Glucose,Whole Blood 194 mg/dL (70-110)
[2021-09-22] MEDS: INSULIN DETEMIR (LEVEMIR) 100 UNIT/ML SYR SQ SCH ×2 (07:00→21:47)
[2021-09-22] MEDS: INSULIN ASPART (NovoLOG) 100 UNIT/ML VIAL SQ SCH ×8 (07:00→21:47)
[2021-09-22] MEDS: METOPROLOL TARTRATE 50 MG TAB PO SCH ×2 (07:04→17:10)
[2021-09-22] MEDS: metFORMIN 500 MG TAB PO SCH ×2 (07:04→17:10)
[2021-09-22] MEDS: IPRATROPIUM-ALBUTEROL 3 ML NEB INHALATION SCH ×4 (07:33→19:21)
--- NOTE | 2021-09-22 08:04 | XR ---
EXAMINATION TYPE: XR chest 1V portable DATE OF EXAM: 09/22/2021 COMPARISON: 09/20/2021 HISTORY: Pneumonia TECHNIQUE: Single frontal view of the chest is obtained. FINDINGS: Improving right lower lobe consolidation. Postsurgical changes are noted in the heart size is normal. No pneumothorax. No sizable pleural effusion. Osseous structures stable IMPRESSION: Improving right lower lobe infiltrate.
[2021-09-22] MEDS: HEPARIN SODIUM,PORCINE/PF 5,000 UNIT/0.5 ML SYRINGE SQ SCH ×3 (09:53→23:55)
[2021-09-22] MEDS: methylPREDNISolone SOD SUCCI 40 MG/ML 1 ML VIAL IV SCH (09:53)
[2021-09-22] MEDS: ATORVASTATIN 80 MG TAB PO SCH (09:53)
[2021-09-22] MEDS: lisinopriL 20 MG TAB PO SCH (09:54)
[2021-09-22] MEDS: AZITHROMYCIN 500 MG TAB PO SCH (09:54)
[2021-09-22] MEDS: MONTELUKAST 10 MG TAB PO SCH (09:54)
[2021-09-22] MEDS: CLOPIDOGREL 75 MG TAB PO SCH (09:54)
[2021-09-22] MEDS: predniSONE 20 MG TAB PO SCH (11:36)
[2021-09-22] MEDS: ACETAMINOPHEN TAB 325 MG TAB PO PRN (11:36)
[2021-09-22 12:05] LABS: Glucose,Whole Blood 258 mg/dL (70-110)
--- NOTE | 2021-09-22 14:37 | P.PN ---
Subjective Progress Note Date: 09/22/21 61-year-old male patient with multiple medical problems and comorbidities. The patient came into the emergency department complaining of cough, greenish sputum, altered mentation was also noted and the patient become more lethargic and sleepy. There was also some increased swelling lower extremity is b ilaterally. The patient came into the MRSA problem with those symptoms. In the ED, the patient a fever and his highest temperature was noted to at home prior to him coming into the hospital. Denied having any other new complaints. No angina. No palpitation. Patient has associated COVID 19 vaccination in addition to a booster shot. The patient has multiple medical problems and comorbidities for now. He was found to be hypoxic in the patient's blood gases showed an acute on top of chronic hypercapnic respiratory failure with a pH of 7.27 with a pCO2 of 75 and a pO2 of 72 and this was on FiO2 of 28%. Further investigation revealed that the patient white cell count was elevated at 21 and a patient had a hemoglobin of 14.4. BUN is 41 with a One Point and the Sodium Level Is at 139. COVID 19 Testing Was Negative. Influenza Screen Was Negative. The Patient has also a dose of Lasix in the emergency and this resulted in significant diuresis. Clinically improved and the patient's creatinine today is at 1.8. Follow-up blood gases from today showed a rate of 7.33 with a pCO2 of 62 and pO2 of 66. The chest x-ray from today is grossly unchanged and the patient has a right lower lobe airspace opacities. The patient is currently on a commercial Rocephin and Zithromax. Patient is also on IV Solu Medrol and DuoNeb nebulized treatments around the clock. Awake and alert and comm unicating. No signs of any CO2 narcosis and the patient seems to much more comfortable at this point in time. The patient is currently on 8 L of O2 nasal cannula with pulse ox of 94%. Hemodynamically stable. On today's evaluation of 09/21/2021, the patient is doing well. The patient has been feeling less short of breath compared to yesterday. No new complaints otherwise for now. On examination, he is supple bronchospastic and wheezy. Meanwhile, the patient is being treated with a combination of DuoNeb nebulized treatments around the clock, IV Solu Medrol 4 mg every 8 hours and the patient was covered empirically with IV Rocephin. The patient showed improvement in renal function and creatinine is down to 1.0 with a mean of 60 to white cell count of 21. Blood sugars are slightly elevated and the patient remains on Levemir insulin 15 units twice a day in addition to 10 units of NovoLog with meals. Metformin and lisinopril can be restarted as the patient's renal function is also normalized. 09/22/2021, seeing the patient for a follow-up. The patient got transferred out of the intensive care unit yesterday. He is feeling well. No significant shortness of breath. His improved considerably. No chest pain. No cough sputum production or chest that is so wheezing on today's evaluation. In terms of blood work, it is still pending from today. Repeat chest x-ray shows im provement in the right lower lobe pulmonary infiltrate. The patient remains on bronchodilators. The patient remains on IV Solu-Medrol. The patient remains on empiric antibiotic coverage. He is receiving IV Rocephin and the patient is on oral Zithromax.. He is taking Levemir insulin 20 units twice a day along with 10 units of NovoLog with meals and a slight scale coverage. Objective - Vital Signs Vital signs: Vital Signs Temp 97.7 F 09/22/21 11:42 Pulse 72 09/22/21 13:55 Resp 18 09/22/21 13:55 BP 166/80 09/22/21 11:42 Pulse Ox 95 09/22/21 11:42 FiO2 40 09/22/21 10:30 Intake & Output 09/21/21 09/22/21 09/22/21 18:59 06:59 18:59 Intake Total 300 118 Output Total 300 550 Balance 0 -550 118 Intake: Intake, IV Titration 50 Amount cefTRIAXone 2 gm In 50 Sodium Chloride 0.9% 50 ml @ 100 mls/hr IVPB Q24HR [facility] Rx#:[id number] Oral 250 118 Output: Urine 300 550 Other: Voiding Method Toilet Toilet # Voids 1 1 # Bowel Movements 1 - Exam Obese, calm and comfortable, nonacute distress, BMI 37.8 Head exam was generally normal. There was no scleral icterus or corneal arcus. Mucous membranes were moist. Neck was supple and without jugular venous distension, thyromegaly, or carotid bruits. Carotids were easily palpable bilaterally. There was no adenopathy. Mallampati class IV Cardiac exam revealed the PMI to be normally situated and sized. The rhythm was regular and no extrasystoles were noted during several minutes of auscultation. The first and second heart sounds were normal and physiologic splitting of the second heart sound was noted. There were no murmurs, rubs, clicks, or gallops. Lungs thousand diminished in the patient's scattered rhonchi and scattered external wheezes throughout the lung smith bilaterally Abdominal exam revealed normal bowel sounds. The abdomen was soft, non-tender, and without masses, organomegaly, or appreciable enlargement of the abdominal aorta. Examination of the extremities revealed easily palpable radial, femoral and pedal pulses. There was no cyanosis, clubbing or edema. Examination of the skin revealed no evidence of significant rashes, suspicious appearing nevi or other concerning lesions. Neurologically, the patient is awake and alert and the patient does not have any focal neurological deficit. Cranial nerves are essentially intact. - Labs CBC & Chem 7: 09/21/21 05:50 09/21/21 05:50 Labs: Abnormal Lab Results - Last 24 Hours (Table) 09/21/21 09/21/21 09/21/21 Range/Units 14:00 16:50 20:04 POC Glucose (mg/dL) 292 H 372 H (70-110) mg/dL Urine Protein Trace H (Negative) 09/22/21 09/22/21 Range/Units 05:36 12:02 POC Glucose (mg/dL) 194 H 258 H (70-110) mg/dL Urine Protein (Negative) Microbiology - Last 24 Hours (Table) 09/19/21 10:25 Blood Culture - Preliminary Blood No Growth after 72 hours 09/19/21 09:30 Blood Culture - Preliminary Blood No Growth after 72 hours 09/19/21 19:29 Gram Stain - Final Sputum Sputum Culture - Final Assessment and Plan Plan: Acute hypoxic and hypercapnic respiratory failure , likely a right lower lobe pneumonia and there is obvious improvement on today's chest x-ray in the patient's occupation is also improved. The patient got transferred out of the intensive care unit yesterday. Chest x-ray from today showing improvement in the right lower lobe pneumonia. Altered mentation, improving, Completely back to normal Fever, currently afebrile SERGIO, recovered Acute COPD exacerbation, baseline FEV1 40% Coronary disease history of CABG and prior history of stent placement, CABG x1, LIU to LAD, 2020 Severe , previous AVR (bioprsthetic) 2020 Diabetes type 2 insulin-dependent Hypertension Hyperlipidemia Obstructive sleep apnea, AHI of 58 awaiting sleep apnea machine History of SVT status post successful ablation Prior history of smoking COVID 19 in apr 2020 CEA, right sided SVT with pevious ablation Previous CVA Plan Continued antibiotic coverage with a combination of Rocephine and Zithromax The patient is currently on 2-1/2 L of oxygen nasal cannula. We'll try to wean it down further Duoneb Stopped IV Solu Medrol start the patient prednisone burst taper the dose of 40 mg by mouth daily Levemir 20 U BID and he Insulin sliding scale coverage, in addition to 10 units of NovoLog with meals Repeat chest x-ray shows improvement in the right lower lobe pulmonary infiltrates Check Procal was 0.55 Restart metformin and Lisinopril Labs tomorrow We'll continue to follow 5 L
--- NOTE | 2021-09-22 14:58 | P.PN ---
Subjective Progress Note Date: 09/22/21 Patient is a 62-year-old male with a known history of coronary disease status post CABG about 1 year ago, history of stent placement, hypertension, hyperlipidemia, diabetes type 2 [id number], obstructive sleep apnea, history of SVT status post ablation and prior history of smoking and COPD pr esents to ER with complaints of worsening shortness of breath for the past 2 days. Patient was also coughing up greenish colored sputum production. Patient has been having confusion and sleeping more as per his at bedside. Also noticed some increased swelling in the feet. Presented to ER due to worsening symptoms. Patient states that he had a fever yesterday 102 F and again today and pre sented to ER. Denies any complaints of nausea or vomiting. No abdominal pain or diarrhea. Denies any dizziness or lightheadedness. No recent illnesses. Patient did have COVID-1 vaccine and booster shot.. Patient denies any prior history of CHF. Chest x-ray showed there is increased density right middle lung base which may reflect developing infiltrate. Correlate clinically. EKG showed sinus tachycardia On admission patient was tachycardic and pulse ox 87% on room air. T-max 102.8. Laboratory showed WBC 21.5 hemoglobin 14.4 and platelets 260 neutrophils 17.2 Sodium 139 potassium 4.4 chloride 97 bicarb 35 BUN 41 creatinine 1.2 and blood sugar is 212 Loramyc are not elevated and COVID-19 PCR and influenza a and B PCR not detected. 09/20/2021 Patient is seen and evaluated in follow-up this morning currently sitting up in the chair maintained on 8 L high flow nasal cannula. Pulmonary following closely and chest xray continues to show right lower lung opacities. Patient continues with shortness of breath and cough with some phlegm production. Patient did have fevers last night. Patient also with worsening kidney functions and will monitor closely with repeat am labs ordered. Patient was given a dose of lasix today. Patient is tolerating diet with no reported nausea or vomiting. Patient encouraged to increase activity as tolerated. Continue with bipap as needed. Wean FI02 as tolerated. Afebrile today thus far and is maintained on zithromax and IV rocephin. Patient denies chest pain or palpitations. 09/21/2021 Patient continues to be in the ICU under close observation with pulmonary plc engineer following. Working on weaning FiO2 as tolerated and maintained on 6 L high flow. Patient also continues with breathing inhalational treatments and IV steroids which have been titrated down. Patient also continues with BiPAP at night and follows closely with pulmonary in the outpatient setting working on a special device for the home setting which is scheduled to be delivered this week sometime. The cultures remain negative and preliminary sputum cultures pending at this time and patient will continue on IV ceftriaxone for now. WBC elevated at 21 although creatinine is improved and is currently 1.0 today. Patient is afebrile and denies any worsening chest pain or shortness of breath. Tolerating diet with no reports of nausea or vomiting noted. 09/22/2021 Patient is seen in follow-up this morning has been removed from the ICU to selective unit with no acute overnight issues noted. Patient is now down to 2-2-1/2 L via nasal cannula and chest x-ray today shows improvement and is also maintained on an. Antibiotics along with IV steroids which is being titrated down. Pulmonary following closely and recommending to continue weaning FiO2 as tolerated. Discussed with case management about possibly requiring home oxygen and working on arrangements being made to have home oxygen at 2 L via nasal cannula to manage his COPD. Patient is receiving a new BiPAP/cpap machine for the home for possibly being arranged for delivery tomorrow with education pr ovided. Encourage the patient to continue using incentive spirometer at least 10 times every hour while awake. Patient's blood sugars are elevated and long acting insulin being titrated and increased and will continue with pre-meals and sliding scale. Patient normally only takes 10 units of long-acting and oral diabetic agents in the outpatient setting. Discussed with him about possibly increasing while on prednisone and continuing prednisone taper watching blood sugars closely. Patient is agreeable with this plan. Patient is currently afebrile denies chest pain or shortness of breath. Patient also continued on breathing inhalational treatments and will continue. Review of systems: Constitutional: No reports of fatigue, fever, or chills Cardiovascular: No reports of chest pain or palpitations Respiratory: reports of improvements in his shortness of breath and reports cough GI: No reports of nausea, vomiting, or diarrhea : No reports of dysuria or retention Neurovascular: no reports of generalized weakness All medications have been reviewed Active Medications Acetaminophen (Acetaminophen Tab 325 Mg Tab) 650 mg PO Q6HR PRN PRN Reason: Fever and/ or Pain Last Admin: 09/22/21 11:36 Dose: 650 mg Albuterol/Ipratropium (Ipratropium-Albuterol 3 Ml Neb) 3 ml INHALATION RT-Q4H PRN PRN Reason: Shortness Of Breath Or Wheezing Last Admin: 09/19/21 19:24 Dose: 3 ml Albuterol/Ipratropium (Ipratropium-Albuterol 3 Ml Neb) 3 ml INHALATION RT-QID [facility] Last Admin: 09/22/21 10:32 Dose: 3 ml Atorvastatin Calcium (Atorvastatin 80 Mg Tab) 80 mg PO DAILY [facility] Last Admin: 09/22/21 09:53 Dose: 80 mg Azithromycin (Azithromycin 500 Mg Tab) 500 mg PO DAILY [facility]; Protocol Stop: 09/24/21 09:01 Last Admin: 09/22/21 09:54 Dose: 500 mg Clopidogrel Bisulfate (Clopidogrel 75 Mg Tab) 75 mg PO DAILY [facility] Last Admin: 09/22/21 09:54 Dose: 75 mg Heparin Sodium (Porcine) (Heparin Sodium,Porcine/Pf 5,000 Unit/0.5 Ml Syringe) 5,000 unit SQ Q8HR [facility] Last Admin: 09/22/21 09:53 Dose: 5,000 unit Ceftriaxone Sodium 2 gm/ (Sodium Chloride) 50 mls @ 100 mls/hr IVPB Q24HR [facility]; Protocol Stop: 09/23/21 09:29 Last Admin: 09/22/21 11:36 Dose: 100 mls/hr Insulin Aspart (Insulin Aspart (Novolog) 100 Unit/Ml Vial) 0 unit SQ [facility]; Protocol Last Admin: 09/22/21 12:12 Dose: 6 unit Insulin Aspart (Insulin Aspart (Novolog) 100 Unit/Ml Vial) 10 unit SQ ACHS [facility] Last Admin: 09/22/21 12:11 Dose: 10 unit Insulin Detemir (Insulin Detemir (Levemir) 100 Unit/Ml Syr) 20 unit SQ BID@0700,2100 [facility] Last Admin: 09/22/21 07:00 Dose: 20 unit Lisinopril (Lisinopril 20 Mg Tab) 20 mg PO DAILY [facility] Last Admin: 09/22/21 09:54 Dose: 20 mg Metformin HCl (Metformin 500 Mg Tab) 750 mg PO BID-W/MEALS [facility] Last Admin: 09/22/21 07:04 Dose: 750 mg Metoprolol Tartrate (Metoprolol Tartrate 50 Mg Tab) 100 mg PO BID-W/MEALS [facility] Last Admin: 09/22/21 07:04 Dose: 100 mg Miscellaneous Information (Pneumonia Protocol Utilized 1 Each [facility] [place]) 1 each PO ONCE PRN PRN Reason: Per Protocol Montelukast Sodium (Montelukast 10 Mg Tab) 10 mg PO DAILY [facility] Last Admin: 09/22/21 09:54 Dose: 10 mg Prednisone (Prednisone 20 Mg Tab) 40 mg PO DAILY [facility] Last Admin: 09/22/21 11:36 Dose: 40 mg PHYSICAL EXAMINATION: Patient is sitting up in the bed, no acute distress, awake alert and oriented x3.. HEENT: Normocephalic. Neck is supple. Pupils reactive. Nostrils clear. Oral cavity is moist. Neck reveals no JVD, carotid bruits, or thyromegaly. CHEST EXAMINATION: Trachea is central. Symmetrical expansion. Bilateral scattered rhonchi and some minimal expiratory wheezing noted.. CARDIAC: Normal S1, S2 with no gallops. No murmurs ABDOMEN: Soft. Bowel sounds normal. No organomegaly. No abdominal bruits. Extremities: Trace bilateral pedal edema. No clubbing or cyanosis Neurologically awake, alert, oriented x3 with well-coordinated movements. No gross focal deficits noted Skin: No rash or skin lesions. Psychiatric: Cooperative. Non-suicidal Musculoskeletal: No joint swelling or deformity. Normal range of motion. Assessment: Acute right lower lobe pneumonia. Severe sepsis secondary to above Acute hypoxic and hypercapnic respiratory failure requiring oxygen at 3 L via nasal cannula on admission, currently 2L HF and bipap as needed at night Acute COPD exacerbation Coronary disease history of CABG and prior history of stent placement Diabetes type 2 [id number], uncontrolled with hyperglycemia and also a component of IV steroids induced Hypertension Hyperlipidemia Obstructive sleep apnea awaiting sleep apnea machine that is scheduled to be delivered once he is discharged History of SVT status post successful ablation Prior history of smoking DVT prophylaxis Plan: Patient will be continued on antibiotics for now in the form of ceftriaxone azithromycin. Patient is afebrile today. IV steroids being discontinued and being transitioned to oral prednisone and will continue prednisone taper on disc harge. Recommend to continue with duo nebs and wean FI02 as tolerated. currently on 2.5L VIA NASAL CANNULA and bipap at night and as needed. Will arrange for home oxygen as he will require 2 L to manage his COPD. Case management provided with a prescription. Blood sugars are elevated and currently maintained on sliding scale along with pre-meal and long-acting insulin and metformin being resumed. Will increase long-acting. Discussed with patient about potentially requiring more insulin on discharge while taking prednisone taper due to elevated blood sugars. Patient verbalized understanding. Recommend repeat am labs. Possible discharge in 24 hours. The impression and plan of care has been dictated by Willow Bolaños, Nurse Practitioner as directed. Dr. Yovani MD I have performed a history and examination and MDM of this patient, discussed the same with the dictator, and agree with the dictator's assessment and plan as written ,documented as a scribe. Based on total visit time, I have performed more than 50% of the visit. Objective - Vital Signs Vital signs: Vital Signs Temp 98.1 F 09/22/21 03:45 Pulse 82 09/22/21 07:43 Resp 16 09/22/21 03:45 BP 118/56 09/22/21 03:45 Pulse Ox 95 09/22/21 03:45 FiO2 40 09/22/21 00:07 Intake & Output 09/21/21 09/22/21 09/22/21 18:59 06:59 18:59 Intake Total 300 118 Output Total 300 550 Balance 0 -550 118 Intake: Intake, IV Titration 50 Amount cefTRIAXone 2 gm In 50 Sodium Chloride 0.9% 50 ml @ 100 mls/hr IVPB Q24HR [facility] Rx#:[id number] Oral 250 118 Output: Urine 300 550 Other: Voiding Method Toilet # Voids 1 1 # Bowel Movements 1 - Labs CBC & Chem 7: 09/21/21 05:50 09/21/21 05:50 Labs: Abnormal Lab Results - Last 24 Hours (Table) 09/21/21 09/21/21 09/21/21 Range/Units 11:53 14:00 16:50 POC Glucose (mg/dL) 264 H 292 H (70-110) mg/dL Urine Protein Trace H (Negative) 09/21/21 09/22/21 Range/Units 20:04 05:36 POC Glucose (mg/dL) 372 H 194 H (70-110) mg/dL Urine Protein (Negative) Microbiology - Last 24 Hours (Table) 09/19/21 10:25 Blood Culture - Preliminary Blood No Growth after 48 hours 09/19/21 19:29 Gram Stain - Final Sputum Sputum Culture - Final 09/19/21 09:30 Blood Culture - Preliminary Blood No Growth after 48 hours
[2021-09-22 16:56] LABS: Glucose,Whole Blood 236 mg/dL (70-110)
[2021-09-22 21:26] LABS: Glucose,Whole Blood 277 mg/dL (70-110)
[2021-09-23 06:09] LABS: Glucose,Whole Blood 168 mg/dL (70-110)
[2021-09-23] MEDS: metFORMIN 500 MG TAB PO SCH (06:49)
[2021-09-23] MEDS: METOPROLOL TARTRATE 50 MG TAB PO SCH (06:49)
[2021-09-23 07:12] LABS: Glucose,Whole Blood 130 mg/dL (70-110)
[2021-09-23] MEDS: IPRATROPIUM-ALBUTEROL 3 ML NEB INHALATION SCH ×2 (08:13→11:44)
[2021-09-23] MEDS: INSULIN DETEMIR (LEVEMIR) 100 UNIT/ML SYR SQ SCH (08:43)
[2021-09-23] MEDS: MONTELUKAST 10 MG TAB PO SCH (08:44)
[2021-09-23] MEDS: INSULIN ASPART (NovoLOG) 100 UNIT/ML VIAL SQ SCH ×4 (08:44→12:36)
[2021-09-23] MEDS: HEPARIN SODIUM,PORCINE/PF 5,000 UNIT/0.5 ML SYRINGE SQ SCH (08:44)
[2021-09-23] MEDS: lisinopriL 20 MG TAB PO SCH (08:44)
[2021-09-23] MEDS: AZITHROMYCIN 500 MG TAB PO SCH (08:44)
[2021-09-23] MEDS: CLOPIDOGREL 75 MG TAB PO SCH (08:44)
[2021-09-23] MEDS: predniSONE 20 MG TAB PO SCH (08:44)
[2021-09-23] MEDS: ATORVASTATIN 80 MG TAB PO SCH (08:44)
[2021-09-23] MEDS: ACETAMINOPHEN TAB 325 MG TAB PO PRN (08:58)
[2021-09-23 09:00] LABS: African American GFR (CKD) >90 (>60 ml/min/1.73 sqM); Anion Gap 7 mmol/L; Blood Urea Nitrogen 25 mg/dL (9-20); Calcium 9.1 mg/dL (8.4-10.2); Carbon Dioxide 35 mmol/L (22-30); Chloride 101 mmol/L (98-107); Glucose 179 mg/dL (74-99); Non-African American GFR(CKD) >90 (>60 ml/min/1.73 sqM); Potassium 4.5 mmol/L (3.5-5.1); Sodium 143 mmol/L (137-145)
[2021-09-23 09:05] VITALS: BP 155/89; RESP 20; TEMP 98.2
[2021-09-23 11:54] VITALS: PULSE 76
[2021-09-23 12:11] LABS: Glucose,Whole Blood 114 mg/dL (70-110)
--- NOTE | 2021-09-23 14:02 | P.PN ---
Subjective Progress Note Date: 09/23/21 Principal diagnosis: Shortness of breath 61-year-old male patient with multiple medical problems and comorbidities. The patient came into the emergency department complaining of cough, greenish sputum, altered mentation was also noted and the patient become more lethargic and sleepy. There was also some increased swelling lower extremity is bilaterally. The patient came into the MRSA problem with those symptoms. In the ED, the patient a fever and his highest temperature was noted to at home prior to him coming into the hospital. Denied having any other new complaints. No angina. No palpitation. Patient has associated COVID 19 vaccination in addition to a booster shot. The patient has multiple medical problems and comorbidities for now. He was found to be hypoxic in the patient's blood gases showed an acute on top of chronic hypercapnic respiratory failure with a pH of 7.27 with a pCO2 of 75 and a pO2 of 72 and this was on FiO2 of 28%. Further investigation revealed that the patient white cell count was elevated at 21 and a patient had a hemoglobin of 14.4. BUN is 41 with a One Point and the Sodium Level Is at 139. COVID 19 Testing Was Negative. Influenza Screen Was Negative. The Patient has also a dose of Lasix in the emergency and this resulted in significant diuresis. Clinically improved and the patient's creatinine today is at 1.8. Follow-up blood gases from today showed a rate of 7.33 with a pCO2 of 62 and pO2 of 66. The chest x-ray from today is grossly unchanged and the patient has a right lower lobe airspace opacities. The patient is currently on a commercial Rocephin and Zithromax. Patient is also on IV Solu Medrol and DuoN eb nebulized treatments around the clock. Awake and alert and communicating. No signs of any CO2 narcosis and the patient seems to much more comfortable at this point in time. The patient is currently on 8 L of O2 nasal cannula with pulse ox of 94%. Hemodynamically stable. On today's evaluation of 09/21/2021, the patient is doing well. The patient has been feeling less short of breath compared to yesterday. No new complaints otherwise for now. On examination, he is supple bronchospastic and wheezy. Meanwhile, the patient is being treated with a combination of DuoNeb nebulized treatments around the clock, IV Solu Medrol 4 mg every 8 hours and the patient was covered empirically with IV Rocephin. The patient showed improvement in renal function and creatinine is down to 1.0 with a mean of 60 to white cell count of 21. Blood sugars are slightly elevated and the patient remains on Levemir insulin 15 units twice a day in addition to 10 units of NovoLog with meals. Metformin and lisinopril can be restarted as the patient's renal function is also normalized. 09/22/2021, seeing the patient for a follow-up. The patient got transferred out of the intensive care unit yesterday. He is feeling well. No significant shortness of breath. His improved considerably. No chest pain. No cough sputum production or chest that is so wheezing on today's evaluation. In terms of blood work, it is still pending from today. Repeat chest x-ray shows improvement in the right lower lobe pulmonary infiltrate. The patient remains on bronchodilators. The patient remains on IV Solu-Medrol. The patient remains on empiric antibiotic coverage. He is receiving IV Rocephin and the patient is on oral Zithromax.. He is taking Levemir insulin 20 units twice a day along with 10 units of NovoLog with meals and a slight scale coverage. On 09/23/2021 patient seen in follow-up on selective care unit, he is awake and alert, in no acute distress, 2 L of oxygen he has sat is 96%, his breathing quite comfortably, he did qualify for home oxygen as she desaturated to 88% with ambulation, and home oxygen is being arranged. Also his APAP device is supposed to be delivered to his residence for a diagnosis of obstructive sleep apnea. Patient is awake and alert, in no acute distress. Lung sounds are clear to auscultation, patient has been get up out of bed, ambulating, tolerates activity very well. Chest x-ray showing improving right lower lobe infiltrate. Today's labs have been reviewed, showing CO2 of 35, BUN of 25, respiratory electrolyte and renal profile were unremarkable. His blood and sputum cultures have been negative. Patient continues on empiric antibiotics in the form of azithromycin. His IV steroids can be transitioned to oral prednisone. He remains on nebulized bronchodilators. Objective - Vital Signs Vital signs: Vital Signs Temp 98.2 F 09/23/21 08:40 Pulse 76 09/23/21 11:53 Resp 20 09/23/21 08:40 BP 155/89 09/23/21 08:40 Pulse Ox 96 09/23/21 08:40 FiO2 40 09/22/21 10:30 Intake & Output 09/22/21 09/23/21 09/23/21 18:59 06:59 18:59 Intake Total 776 180 Balance 776 180 Intake: Oral 776 180 Other: Voiding Method Toilet Toilet Toilet # Voids 1 # Bowel Movements 1 - Exam GENERAL EXAM: Alert, very pleasant, 61-year-old white male, on 2 L of oxygen comfortable in no apparent distress. HEAD: Normocephalic/atraumatic. EYES: Normal reaction of pupils, equal size. Conjunctiva pink, sclera white. NOSE: Clear with pink turbinates. THROAT: No erythema or exudates. NECK: No masses, no JVD, no thyroid enlargement, no adenopathy. CHEST: No chest wall deformity. Symmetrical expansion. LUNGS: Equal air entry with no crackles, wheeze, rhonchi or dullness. CVS: Regular rate and rhythm, normal S1 and S2, no gallops, no murmurs, no rubs ABDOMEN: Soft, nontender. No hepatosplenomegaly, normal bowel sounds, no guarding or rigidity. EXTREMITIES: No clubbing, no edema, no cyanosis, 2+ pulses and upper and lower extremities. MUSCULOSKELETAL: Muscle strength and tone normal. SPINE: No scoliosis or deformity SKIN: No rashes CENTRAL NERVOUS SYSTEM: Alert and oriented -3. No focal deficits, tone is normal in all 4 extremities. PSYCHIATRIC: Alert and oriented -3. Appropriate affect. Intact judgment and insight. - Labs CBC & Chem 7: 09/21/21 05:50 09/23/21 08:10 Labs: Abnormal Lab Results - Last 24 Hours (Table) 09/22/21 09/22/21 09/23/21 Range/Units 16:55 21:25 06:08 Carbon Dioxide (22-30) mmol/L BUN (9-20) mg/dL Glucose (74-99) mg/dL POC Glucose (mg/dL) 236 H 277 H 168 H (70-110) mg/dL 09/23/21 09/23/21 09/23/21 Range/Units 07:10 08:10 12:09 Carbon Dioxide 35 H (22-30) mmol/L BUN 25 H (9-20) mg/dL Glucose 179 H (74-99) mg/dL POC Glucose (mg/dL) 130 H 114 H (70-110) mg/dL Microbiology - Last 24 Hours (Table) 09/19/21 10:25 Blood Culture - Preliminary Blood No Growth after 96 hours 09/19/21 09:30 Blood Culture - Preliminary Blood No Growth after 96 hours Assessment and Plan Plan: Acute hypoxic and hypercapnic respiratory failure , likely a right lower lobe pneumonia and there is obvious improvement on today's chest x-ray in the patient's occupation is also improved. The patient got transferred out of the intensive care unit yesterday. Chest x-ray from today showing improvement in the right lower lobe pneumonia. Altered mentation, improving, Completely back to normal Fever, currently afebrile SERGIO, recovered Acute COPD exacerbation, baseline FEV1 40% Coronary disease history of CABG and prior history of stent placement, CABG x1, LIU to LAD, 2020 Severe , previous AVR (bioprsthetic) 2020 Diabetes type 2 insulin-dependent Hypertension Hyperlipidemia Obstructive sleep apnea, AHI of 58 awaiting sleep apnea machine History of SVT status post successful ablation Prior history of smoking COVID 19 in apr 2020 CEA, right sided SVT with pevious ablation Previous CVA Plan: Clinically patient continues to improve His chest x-ray showed improvement in the appearance of a right lower lobe pneumonia He is awake and alert, FiO2 is currently down to 2 L and patient does qualify for home oxygen at 2 L His APAP device is supposed to be delivered to his residence He can be considered for discharge home from pulmonary perspective He can completed prednisone taper and antibiotic therapy Continue with Lcb Outpatient follow-up with Dr. Meyers in the office in 7-10 days I have personally seen and examined the patient, performed the documentation and the assessment and plan as written. I have personally seen and examined the patient and reviewed the documentation. I performed a joint evaluation with the nurse practitioner in this evaluation was done more than 20 minutes. I fully agree with the documentation above and the plan of care. Time with Patient: Less than 30
== END 2021-09-23 14:52 | disposition home or self-care (01) | DRG 871 ==
LOC: EC 08:26 → 3SCARD 13:10 → 2SICU 19:05 → 3SCARD 09-21 17:34
PROVIDERS: ADMIT Hospitalist; ATTEND Hospitalist
DX: A41.9 Sepsis, unspecified organism (principal); J18.9 Pneumonia, unspecified organism; J96.21 Acute and chronic respiratory failure with hypoxia; J96.22 Acute and chronic respiratory failure with hypercapnia; J44.0 Chronic obstructive pulmonary disease with (acute) lower respiratory infection; J44.1 Chronic obstructive pulmonary disease with (acute) exacerbation; I47.1 Supraventricular tachycardia; E11.9 Type 2 diabetes mellitus without complications; E78.5 Hyperlipidemia, unspecified; F40.240 Claustrophobia; G47.33 Obstructive sleep apnea (adult) (pediatric); I10 Essential (primary) hypertension; I25.10 Atherosclerotic heart disease of native coronary artery without angina pectoris; M19.041 Primary osteoarthritis, right hand; M19.042 Primary osteoarthritis, left hand; K42.9 Umbilical hernia without obstruction or gangrene; I25.2 Old myocardial infarction; R65.20 Severe sepsis without septic shock; Z20.822 Contact with and (suspected) exposure to COVID-19; Z79.02 Long term (current) use of antithrombotics/antiplatelets; Z87.01 Personal history of pneumonia (recurrent); Z79.4 Long term (current) use of insulin; Z79.51 Long term (current) use of inhaled steroids; Z79.82 Long term (current) use of aspirin; Z79.84 Long term (current) use of oral hypoglycemic drugs; Z79.899 Other long term (current) drug therapy; Z80.0 Family history of malignant neoplasm of digestive organs; Z82.49 Family history of ischemic heart disease and other diseases of the circulatory system; Z83.3 Family history of diabetes mellitus; Z87.891 Personal history of nicotine dependence; Z95.1 Presence of aortocoronary bypass graft; Z95.2 Presence of prosthetic heart valve; Z95.5 Presence of coronary angioplasty implant and graft; Z86.010 Personal history of colon polyps
CPT/HCPCS: 36415; 36600; 71045; 71046; 80048; 80053; 81003; 82805; 83605; 83880; 84145; 85025; 87040; 87070; 87205; 87502; 87635; 93005; 94640; 94660; 94760; 96372; 96374; 96375; 96376; 99291

== ENCOUNTER 2021-10-20 17:15 | Emergency (ER) | payer BC ==
[2021-10-20 17:23] VITALS: RESP 18; TEMP 98.1
[2021-10-20 18:14] LABS: Basophils # (A) 0.1 k/uL (0-0.2); Basophils % (A) 0 %; Eosinophils # (A) 0.2 k/uL (0-0.7); Eosinophils % (A) 1 %; HCT 46.6 % (39.0-53.0); HGB 15.4 gm/dL (13.0-17.5); Lymphocytes # (A) 1.8 k/uL (1.0-4.8); Lymphocytes % (A) 15 %; MCH 29.3 pg (25.0-35.0); MCV 88.9 fL (80.0-100.0); Mean Platelet Volume 7.8; Monocytes # (A) 0.7 k/uL (0-1.0); Monocytes % (A) 6 %; Neutrophils # (A) 9.5 k/uL (1.3-7.7); Neutrophils % (A) 75 %; Platelet Count 216 k/uL (150-450); RBC 5.24 m/uL (4.30-5.90); RDW 13.5 % (11.5-15.5); WBC 12.6 k/uL (3.8-10.6)
--- NOTE | 2021-10-20 18:20 | CT ---
EXAMINATION TYPE: CT abdomen pelvis wo con DATE OF EXAM: 10/20/2021 COMPARISON: 09/10/2018 HISTORY: Flank pain. Diaphretic. Constipation. CT DLP: 1353.4 mGycm Automated exposure control for dose reduction was used. Images obtained from the diaphragm to the floor the pelvis with no contrast. Lung bases are clear of consolidation. No pleural effusion. Heart size is normal. No pericardial effu ritika. There is subpleural 1 cm infiltrate posterior right lung base. Liver and spleen are intact. Stomach is intact. There is no pancreatic mass. Gallbladder appears norm al. The bile ducts are not dilated. There is no adrenal mass. There is fat stranding around both kidneys and more on the right side. Ther e is right-sided hydronephrosis and periureteral edema. There is 3 mm obstructing calculus in the dis jamie right ureter at the ureterovesical junction. Urinary bladder is almost empty. No inguinal hernia. No free fluid in the pelvis. No pelvic mass. Appendix is not seen. No sign of thickened appendix. There is a 3 cm fat-containing umbilical hernia. There is no mesenteric edema. No ascites or free air. No bowel obstruction. Abdominal aorta is ather omatous. The bony pelvis is intact. Hip joints are intact. Sacroiliac joints are intact. IMPRESSION: Obstructing calculus distal right ureter with right-sided hydronephrosis and hydroureter. No other ca lculus seen. There is clearing of the left lower lobe pneumonia compared to old exam. Obstruction of the right kidney is new compared to old exam.
[2021-10-20 18:22] LABS: ALT 41 U/L (4-49); African American GFR (CKD) >90 (>60 ml/min/1.73 sqM); Albumin 4.7 g/dL (3.5-5.0); Amylase 61 U/L (30-110); Anion Gap 14 mmol/L; Blood Urea Nitrogen 15 mg/dL (9-20); Calcium 9.5 mg/dL (8.4-10.2); Carbon Dioxide 24 mmol/L (22-30); Chloride 103 mmol/L (98-107); Glucose 133 mg/dL (74-99); Lipase 145 U/L (23-300); Non-African American GFR(CKD) >90 (>60 ml/min/1.73 sqM); Sodium 141 mmol/L (137-145); Total Bilirubin 0.6 mg/dL (0.2-1.3); Total Protein 7.1 g/dL (6.3-8.2)
[2021-10-20] MEDS ORDERED: KETOROLAC 15 MG/ML 1 ML VIAL IVP STA (18:24)
[2021-10-20] MEDS ORDERED: TAMSULOSIN 0.4 MG CAP.ER.24H PO STA (18:24)
[2021-10-20] MEDS ORDERED: MORPHINE SULFATE 4 MG/ML SYRINGE IVP STA (18:24)
[2021-10-20 18:27] LABS: AST 41 U/L (17-59); Alkaline Phosphatase 64 U/L (38-126); Potassium 4.6 mmol/L (3.5-5.1)
[2021-10-20 18:39] LABS: Appearance,Urine Clear (Clear); Bilirubin,Urine Negative (Negative); Blood,Urine Large (Negative); Color,Urine Yellow; Glucose,Urine (UA) Negative (Negative); Ketones,Urine Negative (Negative); Leukocyte Esterase,Urine Negative (Negative); Mucus,Urine Rare /hpf; Nitrite,Urine Negative (Negative); Protein,Urine Trace (Negative); RBC,Urine 53 /hpf (0-5); Specific Gravity,Urine 1.024 (1.001-1.035); Squamous Epithelial Cell,Urine <1 /hpf (0-4); Urobilinogen,Urine <2.0 mg/dL (<2.0); WBC,Urine 3 /hpf (0-5)
--- NOTE | 2021-10-20 19:08 | ED ---
Abdominal Pain HPI - General Chief Complaint: Abdominal Pain Stated Complaint: back & abd pain Time Seen by Provider: 10/20/21 17:27 Source: patient Mode of arrival: wheelchair Limitations: no limitations - History of Present Illness Initial Comments: Patient complains of right flank pain. Sharp. He rates the pain 8/10. Nothing makes it better or worse. Pain radiates to the front. He has no back pain. He has no chest pain. He has no shortness of breath. He has no fevers or chills. He has nausea but no vomiting. He wasn't doing anything when the pain began. Nothing makes the pain better or worse. He has taken no medicines for this. - Related Data Home Medications Medication Instructions Recorded Confirmed Atorvastatin [Lipitor] 80 mg PO DAILY 04/29/20 09/19/21 Clopidogrel [Plavix] 75 mg PO DAILY 07/08/20 09/19/21 Montelukast [Singulair] 10 mg PO DAILY 09/24/20 09/19/21 Metoprolol Tartrate [Lopressor] 100 mg PO BID-W/MEALS 09/19/21 09/19/21 Previous Rx's Medication Instructions Recorded metFORMIN HCL [Glucophage] 750 mg PO BID-W/MEALS #60 tab 10/02/20 Acetaminophen Tab [Tylenol] 650 mg PO Q6HR PRN tab 09/23/21 Azithromycin [Zithromax Tri-[place] (3 500 mg PO DAILY 3 Days #3 tab 09/23/21 tabs)] INSULIN ASPART (NovoLOG) [NovoLOG 10 unit SQ ACHS 30 Days #5 each 09/23/21 (formulary)] Insulin Glargine,Hum.rec.anlog 15 units SQ HS 30 Days #4 each 09/23/21 [Lantus Solostar Pen] Ipratropium-Albuterol Nebulize 3 ml INHALATION RT-Q4H PRN each 09/23/21 [Duoneb 0.5 mg-3 mg/3 ml Soln] Ipratropium-Albuterol Nebulize 3 ml INHALATION RT-QID 30 Days #90 09/23/21 [Duoneb 0.5 mg-3 mg/3 ml Soln] each lisinopriL [Zestril] 20 mg PO DAILY #0 09/23/21 predniSONE 10 mg PO DIRECTED #30 tab 09/23/21 HYDROcodone/APAP 5-325MG [[place] 1 tab PO Q4HR PRN 3 Days #18 tab 10/20/21 5-325] Ondansetron Odt [Zofran Odt] 4 mg PO Q8HR PRN #15 tab 10/20/21 Tamsulosin [Flomax] 0.4 mg PO DAILY #20 cap 10/20/21 Allergies Allergy/AdvReac Type Severity Reaction Status Date / Time No Known Allergies Allergy Verified 10/20/21 17:19 Review of Systems ROS Statement: Those systems with pertinent positive or pertinent negative responses have been documented in the HPI. ROS Other: All systems not noted in ROS Statement are negative. Past Medical History Past Medical History: Coronary Artery Disease (CAD), COPD, Diabetes Mellitus, Hyperlipidemia, Hypertension, Myocardial Infarction (VT), Osteoarthritis (OA), Pneumonia, Skin Disorder, Sleep Apnea/CPAP/BIPAP, Supraventricular Tachycardia (SVT) Additional Past Medical History / Comment(s): Hx Acute hypoxic respiratory failure, sepsis d/t GE or pneumonia, arthritis bilat hands, occ rash on face, new sleep apnea - awaiting maching, umbilical hernia, SVT with successful ablation. Last Myocardial Infarction Date:: 12-23-16 History of Any Multi-Drug Resistant Organisms: None Reported Past Surgical History: Appendectomy, Cardiac Ablation, Cardiac Valve Replacement, Coronary Bypass/CABG, Heart Catheterization With Stent, Orthopedic Surgery Additional Past Surgical History / Comment(s): Cardiac ablation for SVT, R ca rotid endartectomy, bilateral carpal tunnel releases, colonoscopies/benign polyps. PTCA w/ 3 stents. CABG, bypass x1, Aortic Valve replaced w/ bovine 09/28/20. Past Anesthesia/Blood Transfusion Reactions: No Reported Reaction Additional Past Anesthesia/Blood Transfusion Reaction / Comment(s): Pt has claustrophobia w/ MRI. Date of Last Stent Placement:: 12-23-16 Past Psychological History: No Psychological Hx Reported Smoking Status: Former smoker Past Alcohol Use History: None Reported Past Drug Use History: None Reported - Past Family History Father Brother(s) Family Medical History: Cancer Additional Family Medical History / Comment(s): Father from colon cancer at the age of 63 yrs. Brother had colon cancer with surgical removal. Mother Family Medical History: Coronary Artery Disease (CAD), Diabetes Mellitus, Myocardial Infarction (VT) Additional Family Medical History / Comment(s): Mother of a VT at the age of 79yrs. She had an AICD/pacer. General Exam Limitations: no limitations General appearance: alert, in no apparent distress Head exam: Present: atraumatic, normocephalic, normal inspection Eye exam: Present: normal appearance, PERRL, EOMI. Absent: scleral icterus, conjunctival injection, periorbital swelling ENT exam: Present: normal exam, mucous membranes moist Neck exam: Present: normal inspection. Absent: tenderness, meningismus, lymphadenopathy Respiratory exam: Present: normal lung sounds bilaterally. Absent: respiratory distress, wheezes, rales, rhonchi, stridor Cardiovascular Exam: Present: regular rate, normal rhythm, normal heart sounds. Absent: systolic murmur, diastolic murmur, rubs, gallop, clicks GI/Abdominal exam: Present: soft, normal bowel sounds. Absent: distended, tenderness, guarding, rebound, rigid Extremities exam: Present: normal inspection, full ROM, normal capillary refill. Absent: tenderness, pedal edema, joint swelling, calf tenderness Back exam: Present: normal inspection Neurological exam: Present: alert, oriented X3, CN II-XII intact Psychiatric exam: Present: normal affect, normal mood Skin exam: Present: warm, dry, intact, normal color. Absent: rash Course Vital Signs 10/20/21 17:20 Temperature 98.1 F Pulse Rate 80 Respiratory 18 Rate Blood Pressure 197/97 O2 Sat by Pulse 95 Oximetry Medical Decision Making - Medical Decision Making Patient complains of right flank pain. Urinalysis is negative for infection. CT shows a 3 mm distal right ureter stone. Patient is feeling much better on reevaluation. There is no evidence of infection. He is stable for discharge and outpatient follow-up. - Lab Data Result diagrams: 10/20/21 18:09 10/20/21 18:09 Lab Results 10/20/21 10/20/21 10/20/21 Range/Units 18:09 18:09 18:11 WBC 12.6 H (3.8-10.6) k/uL RBC 5.24 (4.30-5.90) m/uL Hgb 15.4 (13.0-17.5) gm/dL Hct 46.6 (39.0-53.0) % MCV 88.9 (80.0-100.0) fL MCH 29.3 (25.0-35.0) pg MCHC 33.0 (31.0-37.0) g/dL RDW 13.5 (11.5-15.5) % Plt Count 216 (150-450) k/uL MPV 7.8 Neutrophils % 75 % Lymphocytes % 15 % Monocytes % 6 % Eosinophils % 1 % Basophils % 0 % Neutrophils # 9.5 H (1.3-7.7) k/uL Lymphocytes # 1.8 (1.0-4.8) k/uL Monocytes # 0.7 (0-1.0) k/uL Eosinophils # 0.2 (0-0.7) k/uL Basophils # 0.1 (0-0.2) k/uL Sodium 141 (137-145) mmol/L Potassium 4.6 (3.5-5.1) mmol/L Chloride 103 (98-107) mmol/L Carbon Dioxide 24 (22-30) mmol/L Anion Gap 14 mmol/L BUN 15 (9-20) mg/dL Creatinine 0.84 (0.66-1.25) mg/dL Est GFR (CKD-EPI)AfAm >90 (>60 ml/min/1.73 sqM) Est GFR (CKD-EPI)NonAf >90 (>60 ml/min/1.73 sqM) Glucose 133 H (74-99) mg/dL Calcium 9.5 (8.4-10.2) mg/dL Total Bilirubin 0.6 (0.2-1.3) mg/dL AST 41 (17-59) U/L ALT 41 (4-49) U/L Alkaline Phosphatase 64 (38-126) U/L Total Protein 7.1 (6.3-8.2) g/dL Albumin 4.7 (3.5-5.0) g/dL Amylase 61 (30-110) U/L Lipase 145 (23-300) U/L Urine Color Yellow Urine Appearance Clear (Clear) Urine pH 5.0 (5.0-8.0) Ur Specific [place] 1.024 (1.001-1.035) Urine Protein Trace H (Negative) Urine Glucose (UA) Negative (Negative) Urine Ketones Negative (Negative) Urine Blood Large H (Negative) Urine Nitrite Negative (Negative) Urine Bilirubin Negative (Negative) Urine Urobilinogen <2.0 (<2.0) mg/dL Ur Leukocyte Esterase Negative (Negative) Urine RBC 53 H (0-5) /hpf Urine WBC 3 (0-5) /hpf Ur Squamous Epith Cells <1 (0-4) /hpf Urine Mucus Rare H (None) /hpf Disposition Clinical Impression: Kidney stone on right side Disposition: HOME SELF-CARE Condition: Good Instructions (If sedation given, give patient instructions): Kidney Stones (ED) Prescriptions: Tamsulosin [Flomax] 0.4 mg PO DAILY #20 cap HYDROcodone/APAP 5-325MG [[place] 5-325] 1 tab PO Q4HR PRN 3 Days #18 tab PRN Reason: Pain Ondansetron Odt [Zofran Odt] 4 mg PO Q8HR PRN #15 tab PRN Reason: Nausea Is patient prescribed a controlled substance at d/c from ED?: Yes When asked, does pt state using other controlled substances?: No If prescribed controlled substance>3 days was MAPS reviewed?: Prescribed <3 Days If opioid is for acute pain is fill amount 7 days or less?: Yes If Rx opioid, was Start Talking consent form obtained?: Yes Referrals: Deidre Maddox MD [Primary Care Provider] - 1-2 days
[2021-10-20] MEDS ORDERED: ACET/COD 300 MG/30 MG STARTER PACK 6 TAB BTL PO STA (19:26)
[2021-10-20 19:35] VITALS: BP 185/95; PULSE 70
== END 2021-10-20 19:36 | disposition home or self-care (01) ==
LOC: EC 17:15
DX: N20.0 Calculus of kidney (principal); J44.9 Chronic obstructive pulmonary disease, unspecified; E11.9 Type 2 diabetes mellitus without complications; I10 Essential (primary) hypertension; E78.5 Hyperlipidemia, unspecified; Z82.49 Family history of ischemic heart disease and other diseases of the circulatory system
CPT/HCPCS: 36415; 80053; 82150; 83690; 85025; 81001; 74176; 99284; 96374; 96375; J2270; J1885

== ENCOUNTER 2021-10-21 06:55 | Emergency (ER) | payer BC ==
[2021-10-21 06:59] VITALS: TEMP 98
[2021-10-21] MEDS ORDERED: KETOROLAC 15 MG/ML 1 ML VIAL IVP STA (07:20)
[2021-10-21] MEDS ORDERED: HYDROmorphone 0.5 MG/0.5 ML SYRINGE IVP STA (07:20)
[2021-10-21] MEDS ORDERED: ONDANSETRON 4 MG/2 ML VIAL IVP STA (07:20)
[2021-10-21] MEDS ORDERED: SODIUM CHLORIDE 0.9% 2,000 ML IV STA (07:20)
--- NOTE | 2021-10-21 07:49 | ED ---
Abdominal Pain HPI - General Chief Complaint: Abdominal Pain Stated Complaint: abd pain Time Seen by Provider: 10/21/21 07:07 Source: patient, RN notes reviewed Mode of arrival: ambulatory Limitations: no limitations - History of Present Illness Initial Comments: This a 61-year-old male presents emergency Department with chief complaint of right flank pain. Patient states he was recently seen for a kidney stone he was diagnosed with a 3 mm ureteral calculi. Patient states his feeling well states started on some discomfort over 90 in which she took Tylenol codeine. Patient states that pain woke up again this morning states is unbearable 10 to take another pain medication did not have any relief. Patient denies any significant nausea vomiting this time 60 tablet earlier. Patient denies fever or chills no dysuria he states he did urinate several times overnight. - Related Data Home Medications Medication Instructions Recorded Confirmed Atorvastatin [Lipitor] 80 mg PO DAILY 04/29/20 09/19/21 Clopidogrel [Plavix] 75 mg PO DAILY 07/08/20 09/19/21 Montelukast [Singulair] 10 mg PO DAILY 09/24/20 09/19/21 Metoprolol Tartrate [Lopressor] 100 mg PO BID-W/MEALS 09/19/21 09/19/21 Previous Rx's Medication Instructions Recorded metFORMIN HCL [Glucophage] 750 mg PO BID-W/MEALS #60 tab 10/02/20 Acetaminophen Tab [Tylenol] 650 mg PO Q6HR PRN tab 09/23/21 Azithromycin [Zithromax [place] (3 500 mg PO DAILY 3 Days #3 tab 09/23/21 tabs)] INSULIN ASPART (NovoLOG) [NovoLOG 10 unit SQ ACHS 30 Days #5 each 09/23/21 (formulary)] Insulin Glargine,Hum.rec.anlog 15 units SQ HS 30 Days #4 each 09/23/21 [Lantus Solostar Pen] Ipratropium-Albuterol Nebulize 3 ml INHALATION RT-Q4H PRN each 09/23/21 [Duoneb 0.5 mg-3 mg/3 ml Soln] Ipratropium-Albuterol Nebulize 3 ml INHALATION RT-QID 30 Days #90 09/23/21 [Duoneb 0.5 mg-3 mg/3 ml Soln] each lisinopriL [Zestril] 20 mg PO DAILY #0 09/23/21 predniSONE 10 mg PO DIRECTED #30 tab 09/23/21 HYDROcodone/APAP 5-325MG [[place] 1 tab PO Q4HR PRN 3 Days #18 tab 10/20/21 5-325] Ondansetron Odt [Zofran Odt] 4 mg PO Q8HR PRN #15 tab 10/20/21 Tamsulosin [Flomax] 0.4 mg PO DAILY #20 cap 10/20/21 Allergies Allergy/AdvReac Type Severity Reaction Status Date / Time No Known Allergies Allergy Verified 10/21/21 06:56 Review of Systems ROS Statement: Those systems with pertinent positive or pertinent negative responses have been documented in the HPI. ROS Other: All systems not noted in ROS Statement are negative. Past Medical History Past Medical History: Coronary Artery Disease (CAD), COPD, Diabetes Mellitus, Hyperlipidemia, Hypertension, Myocardial Infarction ([place]), Osteoarthritis (OA), Pneumonia, Skin Disorder, Sleep Apnea/CPAP/BIPAP, Supraventricular Tachycardia (SVT) Additional Past Medical History / Comment(s): Hx Acute hypoxic respiratory failure, sepsis d/t GE or pneumonia, arthritis bilat hands, occ rash on face, new sleep apnea - awaiting maching, umbilical hernia, SVT with successful ablation. Last Myocardial Infarction Date:: 12-23-16 History of Any Multi-Drug Resistant Organisms: None Reported Past Surgical History: Appendectomy, Cardiac Ablation, Cardiac Valve Replacement, Coronary Bypass/CABG, Heart Catheterization With Stent, Orthopedic Surgery Additional Past Surgical History / Comment(s): Cardiac ablation for SVT, R carotid endartectomy, bilateral carpal tunnel releases, colonoscopies/benign polyps. PTCA w/ 3 stents. CABG, bypass x1, Aortic Valve replaced w/ bovine 09/28/20. Past Anesthesia/Blood Transfusion Reactions: No Reported Reaction Additional Past Anesthesia/Blood Transfusion Reaction / Comment(s): Pt has claustrophobia w/ MRI. Date of Last Stent Placement:: 12-23-16 Past Psychological History: No Psychological Hx Reported Smoking Status: Former smoker Past Alcohol Use History: None Reported Past Drug Use History: None Reported - Past Family History Father Brother(s) Family Medical History: Cancer Additional Family Medical History / Comment(s): Father from colon cancer at the age of 63 yrs. Brother had colon cancer with surgical removal. Mother Family Medical History: Coronary Artery Disease (CAD), Diabetes Mellitus, Myocardial Infarction ([place]) Additional Family Medical History / Comment(s): Mother of a [place] at the age of 79yrs. She had an AICD/pacer. General Exam Limitations: no limitations General appearance: alert, in no apparent distress Head exam: Present: atraumatic, normocephalic, normal inspection Respiratory exam: Present: normal lung sounds bilaterally. Absent: respiratory distress, wheezes, rales, rhonchi, stridor Cardiovascular Exam: Present: regular rate, normal rhythm, normal heart sounds. Absent: systolic murmur, diastolic murmur, rubs, gallop, clicks GI/Abdominal exam: Present: soft, normal bowel sounds. Absent: distended, tenderness, guarding, rebound, rigid Back exam: Present: CVA tenderness (R). Absent: CVA tenderness (L) Skin exam: Present: warm, dry, intact, normal color. 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 Patient will increase fluids will be discharged in stable condition return parameters were discussed. - Lab Data Result diagrams: 10/21/21 07:46 10/21/21 07:46 Lab Results 10/21/21 10/21/21 10/21/21 Range/Units 07:46 07:46 07:46 WBC 10.2 (3.8-10.6) k/uL RBC 5.08 (4.30-5.90) m/uL Hgb 14.2 (13.0-17.5) gm/dL Hct 44.9 (39.0-53.0) % MCV 88.3 (80.0-100.0) fL MCH 27.9 (25.0-35.0) pg MCHC 31.6 (31.0-37.0) g/dL RDW 13.2 (11.5-15.5) % Plt Count 199 (150-450) k/uL MPV 7.9 Neutrophils % 74 % Lymphocytes % 13 % Monocytes % 10 % Eosinophils % 2 % Basophils % 0 % Neutrophils # 7.6 (1.3-7.7) k/uL Lymphocytes # 1.3 (1.0-4.8) k/uL Monocytes # 1.0 (0-1.0) k/uL Eosinophils # 0.2 (0-0.7) k/uL Basophils # 0.0 (0-0.2) k/uL Sodium 140 (137-145) mmol/L Potassium 4.2 (3.5-5.1) mmol/L Chloride 101 (98-107) mmol/L Carbon Dioxide 27 (22-30) mmol/L Anion Gap 12 mmol/L BUN 19 (9-20) mg/dL Creatinine 1.07 (0.66-1.25) mg/dL Est GFR (CKD-EPI)AfAm 86 (>60 ml/min/1.73 sqM) Est GFR (CKD-EPI)NonAf 75 (>60 ml/min/1.73 sqM) Glucose 151 H (74-99) mg/dL Calcium 8.8 (8.4-10.2) mg/dL Total Bilirubin 0.7 (0.2-1.3) mg/dL AST 28 (17-59) U/L ALT 34 (4-49) U/L Alkaline Phosphatase 62 (38-126) U/L Total Protein 6.4 (6.3-8.2) g/dL Albumin 4.2 (3.5-5.0) g/dL Urine Color Yellow Urine Appearance Cloudy (Clear) Urine pH 5.0 (5.0-8.0) Ur Specific [place] 1.018 (1.001-1.035) Urine Protein Negative (Negative) Urine Glucose (UA) Negative (Negative) Urine Ketones Negative (Negative) Urine Blood Moderate H (Negative) Urine Nitrite Negative (Negative) Urine Bilirubin Negative (Negative) Urine Urobilinogen <2.0 (<2.0) mg/dL Ur Leukocyte Esterase Negative (Negative) Urine RBC 29 H (0-5) /hpf Urine WBC 6 H (0-5) /hpf Ur Squamous Epith Cells 1 (0-4) /hpf Urine Bacteria Rare H (None) /hpf Urine Mucus Few H (None) /hpf Disposition Clinical Impression: Ureteral calculi Disposition: HOME SELF-CARE Condition: Stable Instructions (If sedation given, give patient instructions): Kidney Stones (ED) Additional Instructions: Please return to the Emergency Department if symptoms worsen or any other concerns. Is patient prescribed a controlled substance at d/c from ED?: No Referrals: Deidre Maddox MD [Primary Care Provider] - 1-2 days Jose Morrow MD [STAFF PHYSICIAN] - 1-2 days Time of Disposition: 10:31
[2021-10-21 08:08] LABS: Basophils % (A) 0 %; Eosinophils # (A) 0.2 k/uL (0-0.7); Eosinophils % (A) 2 %; HCT 44.9 % (39.0-53.0); HGB 14.2 gm/dL (13.0-17.5); Lymphocytes # (A) 1.3 k/uL (1.0-4.8); Lymphocytes % (A) 13 %; MCH 27.9 pg (25.0-35.0); MCHC 31.6 g/dL (31.0-37.0); MCV 88.3 fL (80.0-100.0); Mean Platelet Volume 7.9; Monocytes % (A) 10 %; Neutrophils # (A) 7.6 k/uL (1.3-7.7); Neutrophils % (A) 74 %; Platelet Count 199 k/uL (150-450); RBC 5.08 m/uL (4.30-5.90); RDW 13.2 % (11.5-15.5); WBC 10.2 k/uL (3.8-10.6)
[2021-10-21 08:26] LABS: Albumin 4.2 g/dL (3.5-5.0); Calcium 8.8 mg/dL (8.4-10.2); Potassium 4.2 mmol/L (3.5-5.1); Total Bilirubin 0.7 mg/dL (0.2-1.3); Total Protein 6.4 g/dL (6.3-8.2)
[2021-10-21 10:21] LABS: Appearance,Urine Cloudy (Clear); Bacteria,Urine Rare /hpf; Bilirubin,Urine Negative (Negative); Blood,Urine Moderate (Negative); Color,Urine Yellow; Glucose,Urine (UA) Negative (Negative); Ketones,Urine Negative (Negative); Leukocyte Esterase,Urine Negative (Negative); Mucus,Urine Few /hpf; Nitrite,Urine Negative (Negative); Protein,Urine Negative (Negative); RBC,Urine 29 /hpf (0-5); Specific Gravity,Urine 1.018 (1.001-1.035); Squamous Epithelial Cell,Urine 1 /hpf (0-4); Urobilinogen,Urine <2.0 mg/dL (<2.0); WBC,Urine 6 /hpf (0-5)
[2021-10-21 11:15] VITALS: BP 155/76; PULSE 59; RESP 15
== END 2021-10-21 11:16 | disposition home or self-care (01) ==
LOC: EC 06:55
DX: N20.1 Calculus of ureter (principal); J44.9 Chronic obstructive pulmonary disease, unspecified; E11.9 Type 2 diabetes mellitus without complications; E78.5 Hyperlipidemia, unspecified; I10 Essential (primary) hypertension; I25.2 Old myocardial infarction; I25.10 Atherosclerotic heart disease of native coronary artery without angina pectoris; Z87.891 Personal history of nicotine dependence; Z79.899 Other long term (current) drug therapy; Z79.02 Long term (current) use of antithrombotics/antiplatelets
CPT/HCPCS: 36415; 80053; 85025; 81001; 99284; 96374; 96375; 96361; J2405; J1885; J1170

== ENCOUNTER → 2022-09-01 | Outpatient (CLI) | payer BC ==
[2022-09-01 17:09] LABS: ALT 45 U/L (10-49); AST 27 U/L (14-35); Albumin 4.5 d/dL (3.8-4.9); Albumin/Globulin Ratio 2.25 Ratio (1.60-3.17); Alkaline Phosphatase 59 U/L (41-126); BUN/Creat Ratio 19.14 Ratio (12.00-20.00); Blood Urea Nitrogen 13.4 mg/dL (9.0-27.0); Calcium 9.2 mg/dL (8.7-10.3); Chloride 105 mmol/L (96-109); Chol/HDL Ratio 2.94 Ratio; Glucose 169 mg/dL (70-110); Potassium 4.8 mmol/L (3.5-5.5); Sodium 143 mmol/L (135-145); Total Bilirubin 0.5 mg/dL (0.3-1.2); Total Protein 6.5 d/dL (6.2-8.2)
== END | disposition home or self-care (01) ==
LOC: LABWHC1 09:29
PROVIDERS: ATTEND Nurse Practitioner Adult Health
DX: I10 Essential (primary) hypertension (principal); E11.9 Type 2 diabetes mellitus without complications; E78.2 Mixed hyperlipidemia
CPT/HCPCS: 36415; 80053; 80061; 83036

== ENCOUNTER → 2023-04-14 | Outpatient (CLI) | payer BC | END | disposition home or self-care (01) | LOC: LABPAT 14:12 | PROVIDERS: ATTEND Surgery | DX: Z01.812 Encounter for preprocedural laboratory examination (principal) | CPT/HCPCS: 86850; 86900; 86901 ==

== ENCOUNTER 2023-04-24 05:48 | Inpatient (IN) | payer BC ==
[2023-04-13 12:32] VITALS: BMI 36.2
[2023-04-24 06:31] LABS: Glucose,Whole Blood 133 mg/dL (70-110)
[2023-04-24] MEDS: ONDANSETRON 4 MG/2 ML VIAL IVP ONE (06:47)
[2023-04-24] MEDS: DEXAMETHASONE SOD PHOSPHATE 4 MG/ML 1 ML VIAL IV ONE (06:47)
[2023-04-24] MEDS: LACTATED RINGERS 1,000 ML IV SCH ×2 (06:47→12:15)
[2023-04-24] MEDS: MIDAZOLAM 2 MG/2 ML VIAL IVP ONE (06:51)
--- NOTE | 2023-04-24 06:56 | P.GSHP ---
History of Present Illness H&P Date: 04/24/23 Chief Complaint: carotid stenosis 63-year-old gentleman with history of carotid stenosis and previous right carotid endarterectomy and patch angioplasty presents to the hospital for elective left carotid endarterectomy and patch angioplasty secondary to severe carotid stenosis. He previously had a carotid Doppler as well as a CTA of the neck that demonstrated 80 to 90% stenosis of the left ICA. He does not voice any lateralizing symptoms such as weakness, vision changes or speech issues. He denies any fevers, chills, chest pain or shortness of breath. - Review of Systems All systems: negative (What is mentioned in the HPI or past medical history) Past Medical History Past Medical History: Coronary Artery Disease (CAD), COPD, Diabetes Mellitus, Hyperlipidemia, Hypertension, Myocardial Infarction ([place]), Osteoarthritis (OA), Pneumonia, Skin Disorder, Sleep Apnea/CPAP/BIPAP, Supraventricular Tachycardia (SVT) Additional Past Medical History / Comment(s): hx acute hypoxic respiratory failure, sepsis d/t pneumonia, arthritis bilat hands, occ rash on face, sleep apnea - uses CPAP, umbilical hernia, SVT with successful ablation Last Myocardial Infarction Date:: 12-23-16 History of Any Multi-Drug Resistant Organisms: None Reported Past Surgical History: Appendectomy, Cardiac Ablation, Cardiac Valve Replacement, Coronary Bypass/CABG, Heart Catheterization With Stent, Orthopedic Surgery Additional Past Surgical History / Comment(s): Cardiac ablation for SVT, Rt. carotid endartectomy, bilateral carpal tunnel releases, colonoscopies/benign polyps. PTCA w/ 3 stents, CABG, bypass x1, aortic Valve replaced w/ bovine 09/28/20. Past Anesthesia/Blood Transfusion Reactions: No Reported Reaction Additional Past Anesthesia/Blood Transfusion Reaction / Comment(s): Pt has claustrophobia w/ MRI but no problems w/ O2 mask or CPAP. Date of Last Stent Placement:: 12-23-16 Past Psychological History: No Psychological Hx Reported Additional Psychological History / Comment(s): PT resides with his spouse. He works for the [employer] [place]. He is independent. Smoking Status: Former smoker Past Alcohol Use History: None Reported Additional Past Alcohol Use History / Comment(s): Pt started smoking in 1980, 1 ppd, quit in 2010. Past Drug Use History: None Reported Additional Drug Use History / Comment(s): uses CBD oils on shoulders occ - Past Family History Father Brother(s) Family Medical History: Cancer Additional Family Medical History / Comment(s): Father from colon cancer at the age of 63 yrs. Brother had colon cancer with surgical removal. One brother has Type II DM and another brother had AVR. Mother Family Medical History: Coronary Artery Disease (CAD), Diabetes Mellitus, Myoca rdial Infarction ([place]) Additional Family Medical History / Comment(s): Mother of a [place] at the age of 79yrs. She had an AICD/pacer. Medications and Allergies Home Medications Medication Instructions Recorded Confirmed Type Atorvastatin [Lipitor] 80 mg PO HS 04/29/20 04/13/23 History Clopidogrel [Plavix] 75 mg PO HS 07/08/20 04/13/23 History Montelukast [Singulair] 10 mg PO HS 09/24/20 04/13/23 History Metoprolol Tartrate [Lopressor] 100 mg PO BID 09/19/21 04/13/23 History Albuterol Sulfate [Albuterol 2 puff PO RT-Q6H PRN 10/21/21 04/13/23 History Sulfate Hfa] Insulin Glargine,Hum.rec.anlog 12 units SQ HS 10/21/21 04/13/23 History [Lantus Solostar Pen] Metformin Er 750mg 750 mg PO BID 10/21/21 04/13/23 History lisinopriL [Zestril] 20 mg PO BID 10/21/21 04/13/23 History Aspirin [Adult Low Dose Aspirin EC] 81 mg PO QAM 04/13/23 04/13/23 History Semaglutide [Ozempic] 1 mg SQ Q7D 04/13/23 04/13/23 History Allergies Allergy/AdvReac Type Severity Reaction Status Date / Time No Known Allergies Allergy Verified 04/13/23 11:38 Surgical - Exam Vital Signs Temp Pulse Resp BP Pulse Ox 97 F L 84 18 191/88 93 L 04/24/23 06:36 04/24/23 06:36 04/24/23 06:36 04/24/23 06:36 04/24/23 06:36 - General well developed, well nourished, no distress - Eyes PERRL - ENT normal pinna, normal nares - Neck no masses - Respiratory normal expansion, normal respiratory effort - Cardiovascular Rhythm: regular - Abdomen Abdomen: soft, non tender - Integumentary no rash, no growths - Neurologic normal coordination, normal sensation - Psychiatric oriented to time, oriented to person, oriented to place, speech is normal Palpable radial pulses bilaterally No focal deficits. Muscle strength is equal bilaterally. Tongue is midline. No facial droop Results - Labs Abnormal Lab Results - Last 24 Hours (Table) 04/24/23 Range/Units 06:26 POC Glucose (mg/dL) 133 H (70-110) mg/dL Assessment and Plan Assessment: Left ICA stenosis greater than 80 to 90% History of right carotid endarterectomy and patch angioplasty History of open heart surgery and aortic valve replacement Type 2 diabetes Plan: To the OR for left carotid endarterectomy and patch angioplasty. All questions answered. Consent signed and in chart
[2023-04-24] MEDS ORDERED: HYDROmorphone 0.5 MG/0.5 ML SYRINGE IVP PRN (07:00)
[2023-04-24] MEDS ORDERED: MIDAZOLAM 2 MG/2 ML VIAL ONE (07:30)
[2023-04-24] MEDS ORDERED: PHENYLEPHRINE 10 MG/ML VIAL ONE (07:30)
[2023-04-24] MEDS ORDERED: SUCCINYLCHOLINE CHLORIDE 200 MG/10 ML VIAL IV ONE (07:30)
[2023-04-24] MEDS ORDERED: NEOSTIGMINE 1 MG/ML 10 ML VIAL ONE (07:30)
[2023-04-24] MEDS ORDERED: fentaNYL (PF) 50 MCG/ML 2 ML AMP ONE (07:30)
[2023-04-24] MEDS ORDERED: LIDOCAINE 1% INJ 10MG/ML (20 ML MDV) ONE (07:30)
[2023-04-24] MEDS ORDERED: LABETALOL 5 MG/ML VIAL MDV ONE (07:30)
[2023-04-24] MEDS ORDERED: HEPARIN SODIUM,PORCINE 10,000 UNIT/ML 1 ML VIAL ONE (07:30)
[2023-04-24] MEDS ORDERED: ROCURONIUM 10 MG/ML (5 ML VIAL) IV ONE (07:30)
[2023-04-24] MEDS ORDERED: PROPOFOL 10 MG/ML 20 ML VIAL IV ONE (07:30)
[2023-04-24] MEDS ORDERED: VASOPRESSIN 20 UNIT/ML 1 ML VIAL ONE (07:30)
[2023-04-24] MEDS ORDERED: GLYCOPYRROLATE 0.2 MG/ML 2 ML VIAL ONE (07:30)
[2023-04-24] MEDS: GELATIN SPONGE,ABSORB (LARGE) 1 EACH SPONGE TOPICAL ONE (08:08)
[2023-04-24] MEDS: THROMBIN (BOVINE) 5,000 UNIT VIAL TOPICAL ONE ×2 (08:08)
[2023-04-24] MEDS: ceFAZolin 1,000 MG in SODIUM CHLORIDE 0.9% 1,000 ML IRRIGATION ONE (09:00)
[2023-04-24] MEDS: LACTATED RINGERS 1,000 ML IV ONE (09:47)
[2023-04-24] MEDS ORDERED: BENZOCAINE/MENTHOL LOZENG 1 EACH LOZENGE MUCOUS MEM PRN (10:16)
[2023-04-24] MEDS ORDERED: MAG HYDROX/AL HYDROX/SIMETH 30 ML CUP PO PRN (10:16)
[2023-04-24] MEDS ORDERED: MORPHINE SULFATE 2 MG/ML SYRINGE IVP PRN (10:16)
[2023-04-24] MEDS ORDERED: TRIMETHOBENZAMIDE 100 MG/ML 2 ML VIAL IM PRN (10:16)
--- NOTE | 2023-04-24 10:16 | P.OP ---
Description of Procedure: Date of Procedure: 04/24/2023 Preoperative Diagnosis: Left internal carotid artery stenosis greater than 90% Postoperative Diagnosis: Same Procedure(s) Performed: Left carotid endarterectomy with patch angioplasty Anesthesia: DUYEN Surgeon: Logan Medrano Estimated Blood Loss (ml): 10 Pathology: Carotid plaque Condition: stable Disposition: PACU Indications for Procedure: 63-year-old gentleman with history of carotid stenosis and previous right carotid endarterectomy and patch angioplasty presents to the hospital for elective left carotid artery endarterectomy and patch angioplasty due to greater than 90% stenosis of the left internal carotid artery on ultrasound and CT scan. Description of Procedure: After written informed consent was obtained the patient all risks benefits and competitions were described the patient is brought to the operative suite and laid in a supine position. The area of the neck was prepped and draped in usual sterile fashion after appropriate anesthetic was performed per the anesthesiologist. A timeout was performed in normal fashion antibiotics were administered prior to incision. An oblique incision was then created just anterior to the sternocleidomastoid musculature with a 10 blade scalpel and dissection was carried down to the carotid sheath. The carotid sheath was then entered after facial vein was located and suture ligated in normal fashion. The common carotid, internal carotid, external carotid and superior thyroid arteries were located and dissected free in a meticulous fashion circumferentially and controlled with vessel loops. Attention was then placed to locating the vagus nerve as well as hypoglossal nerve which were both spared. Once controlled patient was ad ministered heparin and followed with ACTs for appropriate heparinization. Once ACT was above 200 the proximal and distal aspects of the dissection were then controlled with vascular clamps. Arteriotomy was then created with 11 blade scalpel and extended with [employer] scissors. Utilizing cerebral oximetry which was monitored and did not drop more than 5% and therefore no shunt was required and endarterectomy was then performed with a [place] and elevator. The plaque was then feathered at the distal aspect and the internal carotid artery and removed. The area was copiously irrigated with heparinized saline and all free debris was removed. A 7-0 Prolene suture was then placed to tack the distal aspect of the dissection at the internal carotid artery. A 0.8 x 8 cm bovine pericardial patch was then chosen and patch angioplasty was performed with 6-0 Prolene suture in a running fashion. Prior to last sutures being placed the inflow was released flushing any free debris out of the patch. This was reclamped and the internal carotid artery was released revealing good brisk flow and was once again reclamped. The external carotid and superior thyroid artery were then released followed by the common carotid artery to allow any free debris to be flushed into the external system. Final sutures were placed and secured. Internal carotid artery control was then released. Good pulsatile flow was noted through the patch and a Doppler was utilized demonstrating good brisk flow into the internal, external carotid arteries without any signs of obstruction. Hemostasis was then assured with Gelfoam and thrombin. A 10- [place] SORAIDA drain was then placed in normal fashion and secured with 3-0 nylon suture. The incision was then closed in a multilayer fashion after hemostasis was assured. The skin was then cleansed and dressings were placed. Patient tolerated the procedure well and was following commands and moving all extremities. Patient was then sent to PACU for recovery.
[2023-04-24] MEDS ORDERED: ALBUTEROL HFA INHALER INHALATION PRN (10:18)
[2023-04-24 10:38] LABS: Glucose,Whole Blood 157 mg/dL (70-110)
[2023-04-24 11:54] LABS: Glucose,Whole Blood 131 mg/dL (70-110)
[2023-04-24 12:29] LABS: Basophils % (A) 0 %; Eosinophils % (A) 0 %; HCT 40.2 % (39.0-53.0); HGB 13.1 gm/dL (13.0-17.5); Lymphocytes # (A) 1.1 k/uL (1.0-4.8); Lymphocytes % (A) 12 %; MCH 29.3 pg (25.0-35.0); MCHC 32.7 g/dL (31.0-37.0); MCV 89.6 fL (80.0-100.0); Mean Platelet Volume 8.3; Monocytes # (A) 0.2 k/uL (0-1.0); Monocytes % (A) 2 %; Neutrophils # (A) 8.1 k/uL (1.3-7.7); Neutrophils % (A) 85 %; Platelet Count 196 k/uL (150-450); RBC 4.48 m/uL (4.30-5.90); RDW 12.7 % (11.5-15.5); WBC 9.5 k/uL (3.8-10.6)
[2023-04-24 12:59] LABS: African American GFR (CKD) >90 (>60 ml/min/1.73 sqM); Anion Gap 5 mmol/L; Blood Urea Nitrogen 17 mg/dL (9-20); Calcium 8.9 mg/dL (8.4-10.2); Carbon Dioxide 27 mmol/L (22-30); Chloride 106 mmol/L (98-107); Glucose 125 mg/dL (74-99); Non-African American GFR(CKD) >90 (>60 ml/min/1.73 sqM); Potassium 4.2 mmol/L (3.5-5.1); Sodium 138 mmol/L (137-145)
[2023-04-24] MEDS: Semaglutide [Ozempic] 1 MG/0.75 ML Each SQ SCH (13:17)
[2023-04-24 16:33] LABS: Glucose,Whole Blood 399 mg/dL (70-110)
[2023-04-24] MEDS ORDERED: DEXTROSE 50% SYRINGE 50 ML IVP PRN ×2 (17:27)
[2023-04-24 17:51] LABS: Glucose,Whole Blood 130 mg/dL (70-110)
[2023-04-24] MEDS: ACETAMINOPHEN TAB 325 MG TAB PO PRN (18:04)
[2023-04-24] MEDS: INSULIN ASPART (NovoLOG) 100 UNIT/ML VIAL SQ SCH (18:08)
[2023-04-24 19:01] LABS: Glucose,Whole Blood 227 mg/dL (70-110)
[2023-04-24 19:59] LABS: Glucose,Whole Blood 130 mg/dL (70-110)
[2023-04-24] MEDS: metFORMIN 500 MG TAB PO SCH (20:08)
[2023-04-24] MEDS: METOPROLOL TARTRATE 50 MG TAB PO SCH (20:08)
[2023-04-24] MEDS: CLOPIDOGREL 75 MG TAB PO SCH (20:08)
[2023-04-24] MEDS: lisinopriL 20 MG TAB PO SCH (20:09)
[2023-04-24] MEDS: MONTELUKAST 10 MG TAB PO SCH (20:09)
[2023-04-24] MEDS: HYDROcodone/APAP 5-325MG 1 EACH TAB PO PRN (20:09)
[2023-04-24] MEDS: ATORVASTATIN 80 MG TAB PO SCH (20:09)
[2023-04-24] MEDS: INSULIN DETEMIR (LEVEMIR) 100 UNIT/ML SYR SQ SCH (20:12)
[2023-04-25 06:15] LABS: Glucose,Whole Blood 123 mg/dL (70-110)
--- NOTE | 2023-04-25 07:16 | P.PN ---
Subjective Progress Note Date: 04/25/23 Principal diagnosis: carotid stenosis Patient seen and examined. Doing well overnight. No issues with blood pressure. Denies any lateralizing symptoms. Objective - Vital Signs Vital signs: Vital Signs Temp 98.4 F 04/24/23 20:00 Pulse 65 04/25/23 07:00 Resp 19 04/25/23 07:00 BP 124/58 04/25/23 05:00 Pulse Ox 92 L 04/25/23 07:00 FiO2 Intake & Output 04/24/23 04/25/23 04/25/23 18:59 06:59 18:59 Intake Total 1331 960 80 Output Total 2085 1150 Balance -754 -190 80 Weight 122.6 kg Intake: IV 1211 960 80 Lactated Ringers 1,000 ml 560 960 80 @ 80 mls/hr IV .[id number] DELFINO Rx#:[id number] Oral 120 Output: Drainage 0 Left Lateral Neck 0 Urine 2035 1150 Estimated Blood Loss 50 Other: Voiding Method Indwelling Catheter Indwelling Catheter # Voids 0 0 ABP, PAP, CO, CI - Last Documented Arterial Blood Pressure 119/44 - Exam incision site clean, some mild ooze. SORAIDA drain with bloody output- 20cc since placement. No focal deficits - Constitutional General appearance: Present: cooperative - EENT Eyes: Present: PERRLA - Labs CBC & Chem 7: 04/24/23 12:05 04/24/23 12:05 Labs: Abnormal Lab Results - Last 24 Hours (Table) 04/24/23 04/24/23 04/24/23 Range/Units 10:35 11:52 12:05 Neutrophils # (1.3-7.7) k/uL Creatinine 0.63 L (0.66-1.25) mg/dL Glucose 125 H (74-99) mg/dL POC Glucose (mg/dL) 157 H 131 H (70-110) mg/dL 04/24/23 04/24/23 04/24/23 Range/Units 12:05 16:31 17:31 Neutrophils # 8.1 H (1.3-7.7) k/uL Creatinine (0.66-1.25) mg/dL Glucose (74-99) mg/dL POC Glucose (mg/dL) 399 H 130 H (70-110) mg/dL 04/24/23 04/24/23 04/25/23 Range/Units 18:59 19:57 06:15 Neutrophils # (1.3-7.7) k/uL Creatinine (0.66-1.25) mg/dL Glucose (74-99) mg/dL POC Glucose (mg/dL) 227 H 130 H 123 H (70-110) mg/dL Assessment and Plan Assessment: Left ICA stenosis greater than 80 to 90% History of right carotid endarterectomy and patch angioplasty History of open heart surgery and aortic valve replacement Type 2 diabetes Plan: Doing well. Removed SORAIDA drain. Dressings placed for slight ooze. Ok for discharge later today.
[2023-04-25] MEDS: ASPIRIN 81 MG PO SCH (09:23)
[2023-04-25] MEDS: ENOXAPARIN 40 MG/0.4 ML SYRINGE SQ SCH (09:24)
--- NOTE | 2023-04-25 10:43 | P.CONS ---
History of Present Illness - Reason for Consult Consult date: 04/25/23 Past Medical History Past Medical History: Coronary Artery Disease (CAD), COPD, Diabetes Mellitus, Hyperlipidemia, Hypertension, Myocardial Infarction (RI), Osteoarthritis (OA), Pneumonia, Skin Disorder, Sleep Apnea/CPAP/BIPAP, Supraventricular Tachycardia (SVT) Additional Past Medical History / Comment(s): hx acute hypoxic respiratory failure, sepsis d/t pneumonia, arthritis bilat hands, occ rash on face, sleep apnea - uses CPAP, umbilical hernia, SVT with successful ablation Last Myocardial Infarction Date:: 12-23-16 History of Any Multi-Drug Resistant Organisms: None Reported Past Surgical History: Appendectomy, Cardiac Ablation, Cardiac Valve Replacement, Coronary Bypass/CABG, Heart Catheterization With Stent, Orthopedic Surgery Additional Past Surgical History / Comment(s): Cardiac ablation for SVT, Rt. carotid endartectomy, bilateral carpal tunnel releases, colonoscopies/benign polyps. PTCA w/ 3 stents, CABG, bypass x1, aortic Valve replaced w/ bovine 09/28/20. Past Anesthesia/Blood Transfusion Reactions: No Reported Reaction Additional Past Anesthesia/Blood Transfusion Reaction / Comm: Pt has claustrophobia w/ MRI but no problems w/ O2 mask or CPAP. Date of Last Stent Placement:: 12-23-16 Past Psychological History: No Psychological Hx Reported Additional Psychological History / Comment(s): PT resides with his spouse. He works for the [employer]. He is independent. Smoking Status: Former smoker Past Alcohol Use History: None Reported Additional Past Alcohol Use History / Comment(s): Pt started smoking in 1980, 1 ppd, quit in 2010. Past Drug Use History: None Reported Additional Drug Use History / Comment(s): uses CBD oils on shoulders occ - Past Family History Father Brother(s) Family Medical History: Cancer Additional Family Medical History / Comment(s): Father from colon cancer at the age of 63 yrs. Brother had colon cancer with surgical removal. One brother has Type II DM and another brother had AVR. Mother Family Medical History: Coronary Artery Disease (CAD), Diabetes Mellitus, Myocardial Infarction (RI) Additional Family Medical History / Comment(s): Mother of a RI at the age of 79yrs. She had an AICD/pacer. Medications and Allergies Home Medications Medication Instructions Recorded Confirmed Type Atorvastatin [Lipitor] 80 mg PO HS 04/29/20 04/13/23 History Clopidogrel [Plavix] 75 mg PO HS 07/08/20 04/13/23 History Montelukast [Singulair] 10 mg PO HS 09/24/20 04/13/23 History Metoprolol Tartrate [Lopressor] 100 mg PO BID 09/19/21 04/13/23 History Albuterol Sulfate [Albuterol 2 puff PO RT-Q6H PRN 10/21/21 04/13/23 History Sulfate Hfa] Insulin Glargine,Hum.rec.anlog 12 units SQ HS 10/21/21 04/13/23 History [Lantus Solostar Pen] Metformin Er 750mg 750 mg PO BID 10/21/21 04/13/23 History lisinopriL [Zestril] 20 mg PO BID 10/21/21 04/13/23 History Aspirin [Adult Low Dose Aspirin EC] 81 mg PO QAM 04/13/23 04/13/23 History Semaglutide [Ozempic] 1 mg SQ Q7D 04/13/23 04/13/23 History Acetaminophen Tab [Tylenol] 650 mg PO Q4HR PRN tab 04/25/23 Rx Allergies Allergy/AdvReac Type Severity Reaction Status Date / Time No Known Allergies Allergy Verified 04/13/23 11:38 Physical Exam Vitals: Vital Signs Temp Pulse Pulse Resp BP BP BP 04/25/23 07:00 65 19 04/25/23 06:00 62 22 04/25/23 05:00 61 13 124/58 04/25/23 04:00 58 L 12 124/58 04/25/23 03:00 61 12 117/58 04/25/23 02:00 60 13 122/60 04/25/23 01:00 67 14 127/60 04/25/23 00:00 70 15 130/60 04/24/23 23:00 66 14 135/60 04/24/23 22:00 90 12 137/63 04/24/23 21:00 75 19 146/69 04/24/23 20:00 98.4 F 67 20 141/66 04/24/23 19:00 82 15 137/62 04/24/23 18:00 73 18 125/71 04/24/23 17:00 18 125/64 04/24/23 16:00 98.4 F 73 18 122/60 04/24/23 15:00 78 19 04/24/23 14:30 91 14 111/58 04/24/23 14:00 81 19 04/24/23 13:30 83 22 04/24/23 13:15 82 21 123/63 04/24/23 13:00 79 12 04/24/23 12:45 88 13 04/24/23 12:30 89 16 04/24/23 12:20 74 12 148/76 04/24/23 12:10 82 17 148/76 04/24/23 12:00 98.3 F 82 20 141/75 04/24/23 11:57 82 18 04/24/23 11:19 16 142/70 154/48 04/24/23 11:06 77 16 134/63 144/45 04/24/23 10:51 73 16 132/61 154/50 Pulse Ox 04/25/23 07:00 92 L 04/25/23 06:00 93 L 04/25/23 05:00 91 L 04/25/23 04:00 92 L 04/25/23 03:00 93 L 04/25/23 02:00 91 L 04/25/23 01:00 91 L 04/25/23 00:00 91 L 04/24/23 23:00 90 L 04/24/23 22:00 90 L 04/24/23 21:00 95 04/24/23 20:00 96 04/24/23 19:00 95 04/24/23 18:00 92 L 04/24/23 17:00 93 L 04/24/23 16:00 93 L 04/24/23 15:00 92 L 04/24/23 14:30 92 L 04/24/23 14:00 92 L 04/24/23 13:30 92 L 04/24/23 13:15 94 L 04/24/23 13:00 93 L 04/24/23 12:45 94 L 04/24/23 12:30 93 L 04/24/23 12:20 95 04/24/23 12:10 94 L 04/24/23 12:00 94 L 04/24/23 11:57 90 L 04/24/23 11:19 95 04/24/23 11:06 90 L 04/24/23 10:51 97 Intake and Output 04/24/23 04/25/23 04/25/23 22:59 06:59 14:59 Intake Total 640 640 80 Output Total 1675 350 Balance -1035 290 80 Intake: IV 640 640 80 Lactated Ringers 1,000 ml 640 640 80 @ 80 mls/hr IV .[id number] DELFINO Rx#:[id number] Output: Urine 1675 350 Other: Voiding Method Indwelling Catheter Indwelling Catheter Indwelling Catheter # Voids 0 0 Weight 122.6 kg ABP, PAP, CO, CI - Last 8 Hours Arterial Blood Pressure 119/44 Arterial Blood Pressure 126/43 Arterial Blood Pressure 137/48 Results CBC & Chem 7: 04/24/23 12:05 04/24/23 12:05 Labs: Abnormal Lab Results - Last 24 Hours (Table) 04/24/23 04/24/23 04/24/23 Range/Units 11:52 12:05 12:05 Neutrophils # 8.1 H (1.3-7.7) k/uL Creatinine 0.63 L (0.66-1.25) mg/dL Glucose 125 H (74-99) mg/dL POC Glucose (mg/dL) 131 H (70-110) mg/dL Hemoglobin A1c (<=6.0) % 04/24/23 04/24/23 04/24/23 Range/Units 16:31 17:31 18:59 Neutrophils # (1.3-7.7) k/uL Creatinine (0.66-1.25) mg/dL Glucose (74-99) mg/dL POC Glucose (mg/dL) 399 H 130 H 227 H (70-110) mg/dL Hemoglobin A1c (<=6.0) % 04/24/23 04/25/23 04/25/23 Range/Units 19:57 05:54 06:15 Neutrophils # (1.3-7.7) k/uL Creatinine (0.66-1.25) mg/dL Glucose (74-99) mg/dL POC Glucose (mg/dL) 130 H 123 H (70-110) mg/dL Hemoglobin A1c 6.8 H (<=6.0) %
--- NOTE | 2023-04-25 10:44 | P.DS ---
Providers Date of admission: 04/24/23 05:48 Expected date of discharge: 04/25/23 Attending physician: Logan Medrano DO Consults: 04/24/23 10:54 Consult Physician Routine Consulting Provider: Leslee Meredith Consult Reason/Comments: medical management Do you want consulting provider notified?: Yes Primary care physician: Diedre [facility] Hospital Course: 63-year-old male with history of carotid stenosis and previous right carotid endarterectomy and patch angioplasty who presented to the hospital yesterday for elective left carotid endarterectomy and patch angioplasty secondary to severe carotid stenosis. He is postop day #1 for left carotid endarterectomy with patch angioplasty. SORAIDA drain in place with scant amount of serosanguineous drainage. SORAIDA drain removed. Patient does have some oozing from his incision site. No ecchymosis, no hematoma. Neck is soft. He is without any focal deficits. He has been up and ambulating, voiding without difficulty. He tolerated his breakfast well without any difficulty in swallowing. Vital signs are stable. Incision was rechecked, there is minimal oozing. 4 x 4 and Tegaderm dressing placed over incision. Patient instructed no showering until tomorrow. Monitor site for bleeding, swelling. Patient verbalized understanding. Plan is for discharge home today. See progress note for exam Assessment 1. Left ICA stenosis greater than 80 to 90% status post left carotid endarterectomy with patch angioplasty 2. History of right carotid endarterectomy and patch angioplasty 3. History of open heart surgery and aortic valve replacement 5. Type 2 diabetes Plan 1. SORAIDA drain removed 2. Dressing reapplied to left incision 3. Patient instructed to keep dressing in place for next 24 hours, may shower tomorrow. Monitor site for bleeding, hematoma. Patient verbalizes understanding 4. Patient is cleared for discharge. Follow-up in [address] Medrano The impression and plan of care has been dictated as directed. I performed a history and examination of this patient, discussed the same with the dictator. I agree with the dictator's note ,documented as a scribe. Any additional findings or plans will be noted. Procedures: Left carotid endarterectomy with patch angioplasty Patient Condition at Discharge: Stable Plan - Discharge Summary Discharge Rx Participant: Yes New Discharge Prescriptions: New Acetaminophen Tab [Tylenol] 650 mg PO Q4HR PRN tab PRN Reason: Pain Continue Atorvastatin [Lipitor] 80 mg PO HS Montelukast [Singulair] 10 mg PO HS Metoprolol Tartrate [Lopressor] 100 mg PO BID Metformin Er 750mg 750 mg PO BID Insulin Glargine,Hum.rec.anlog [Lantus Solostar Pen] 12 units SQ HS Semaglutide [Ozempic] 1 mg SQ Q7D Clopidogrel [Plavix] 75 mg PO HS Albuterol Sulfate [Albuterol Sulfate Hfa] 2 puff PO RT-Q6H PRN PRN Reason: Shortness Of Breath lisinopriL [Zestril] 20 mg PO BID Aspirin [Adult Low Dose Aspirin EC] 81 mg PO QAM Discharge Medication List Atorvastatin [Lipitor] 80 mg PO HS 04/29/20 [History] Clopidogrel [Plavix] 75 mg PO HS 07/08/20 [History] Montelukast [Singulair] 10 mg PO HS 09/24/20 [History] Metoprolol Tartrate [Lopressor] 100 mg PO BID 09/19/21 [History] Albuterol Sulfate [Albuterol Sulfate Hfa] 2 puff PO RT-Q6H PRN 10/21/21 [History] Insulin Glargine,Hum.rec.anlog [Lantus Solostar Pen] 12 units SQ HS 10/21/21 [History] Metformin Er 750mg 750 mg PO BID 10/21/21 [History] lisinopriL [Zestril] 20 mg PO BID 10/21/21 [History] Aspirin [Adult Low Dose Aspirin EC] 81 mg PO QAM 04/13/23 [History] Semaglutide [Ozempic] 1 mg SQ Q7D 04/13/23 [History] Acetaminophen Tab [Tylenol] 650 mg PO Q4HR PRN tab 04/25/23 [Rx] Follow up Appointment(s)/Referral(s): Logan Medrano DO [STAFF PHYSICIAN] - 1 Week Patient Instructions/Handouts: Carotid Endarterectomy (DC) Activity/Diet/Wound Care/Special Instructions: No strenuous activity or heavy lifting greater than 10 pounds. May shower tomorrrow 04/26/2023 but no tub bathing or soaking. Watch incision site for bleeding and swelling. Watch incsion for infection including redness, drainage, or temperature greater than 100.4. If you notice any symptoms please call office or go to the emergency room Discharge Disposition: HOME SELF-CARE
[2023-04-25 11:07] VITALS: BP 130/62; PULSE 61; RESP 18; TEMP 98.5
--- NOTE | 2023-04-26 08:03 | P.ANPRN ---
Procedure Note - Anesthesia - Invasive Line Right Arterial Line Time Out Performed: Yes Date of Procedure: 04/24/23 Time of Procedure: 07:15 Location of Patient: PreOp Preparation: Sterile Prep, Sterile Dressing Arterial Line Location: Radial Ultrasound Used: No Purpose - Visualization and Identification of Vasculature: No Image Stored and Saved: No Narrative: Central line placement per sterile protocol utilized.
== END 2023-04-25 11:47 | disposition home or self-care (01) | DRG 39 ==
LOC: 2ORMAIN 05:48 → 2SICU 10:52
PROVIDERS: ADMIT Surgery; ATTEND Surgery
PROC: 03UL0KZ Supplement Left Internal Carotid Artery with Nonautologous Tissue Substitute, Open Approach (ICD-10-PCS; 2023-04-24)
PROC: 03CL0ZZ Extirpation of Matter from Left Internal Carotid Artery, Open Approach (ICD-10-PCS; principal; 2023-04-24 07:30)
DX: I65.22 Occlusion and stenosis of left carotid artery (principal); E11.9 Type 2 diabetes mellitus without complications; J44.9 Chronic obstructive pulmonary disease, unspecified; Z79.4 Long term (current) use of insulin; I10 Essential (primary) hypertension; E78.5 Hyperlipidemia, unspecified; I25.10 Atherosclerotic heart disease of native coronary artery without angina pectoris; Z95.1 Presence of aortocoronary bypass graft; I25.2 Old myocardial infarction; Z87.891 Personal history of nicotine dependence; Z95.810 Presence of automatic (implantable) cardiac defibrillator; Z79.02 Long term (current) use of antithrombotics/antiplatelets; Z79.82 Long term (current) use of aspirin; Z79.84 Long term (current) use of oral hypoglycemic drugs; Z79.85 Long-term (current) use of injectable non-insulin antidiabetic drugs; Z80.0 Family history of malignant neoplasm of digestive organs; Z79.899 Other long term (current) drug therapy
CPT/HCPCS: 80048; 83036; 85025; 88304; 88311

== ENCOUNTER → 2023-07-11 | Outpatient (CLI) | payer BC ==
[2023-07-11 11:48] LABS: ALT 32 U/L (10-49); AST 21 U/L (14-35); Albumin 4.5 g/dL (3.8-4.9); Alkaline Phosphatase 60 U/L (41-126); BUN/Creat Ratio 23.86 Ratio (12.00-20.00); Blood Urea Nitrogen 16.7 mg/dL (9.0-27.0); Calcium 9.4 mg/dL (8.7-10.3); Carbon Dioxide 26.5 mmol/L (21.6-31.8); Chloride 108 mmol/L (96-109); Chol/HDL Ratio 3.22 Ratio; Globulin 1.8 g/dL (1.6-3.3); Glucose 125 mg/dL (70-110); LDL Cholesterol,Calculated 51.4 mg/dL (0.0-131.0); Potassium 4.2 mmol/L (3.5-5.5); Sodium 145 mmol/L (135-145); Total Bilirubin 0.4 mg/dL (0.3-1.2); Total Protein 6.3 g/dL (6.2-8.2); VLDL Calculation 19.56 mg/dL (5.00-40.00)
== END | disposition home or self-care (01) ==
LOC: LABWHC1 07:12
PROVIDERS: ATTEND Internal Medicine Interventional Cardiology
DX: E78.2 Mixed hyperlipidemia (principal)
CPT/HCPCS: 36415; 80053; 80061

== ENCOUNTER 2023-11-22 15:42 | Observation (INO) | payer BC ==
--- NOTE | 2023-11-22 16:16 | ED ---
Chest Pain HPI - General Source: patient, RN notes reviewed Mode of arrival: ambulatory Limitations: no limitations <Rony Bernabe - Last Filed: 11/27/23 15:39> - General Source: patient, RN notes reviewed, old records reviewed Mode of arrival: ambulatory Limitations: no limitations - History of Present Illness MD Complaint: chest pain -: days(s) Onset: during rest, during exertion Pain Location: substernal, left chest Pain Radiation: LUE, back Severity: moderate Severity scale (1-10): 4 <Roly Duran - Last Filed: 12/04/23 15:55> - General Chief Complaint: Chest Pain Stated Complaint: chest pain Time Seen by Provider: 11/22/23 16:14 - History of Present Illness Initial Comments: 63-year-old male presented to ER with a chief complaint of chest discomfort. Patient has a past medical history of multiple MIs and open heart surgery. He states today he started to experience centralized chest pain with radiation to his middle back and neck. He reports his pain is a stabbing pain especially in his back. Denies any peripheral edema. No shortness of breath out of the norm. (Rony Bernabe) This is a 63-year-old female to the ER for evaluation of chest pain chest disc omfort and persistent pain to his back here in the ER (Roly Duran) - Related Data Home Medications Medication Instructions Recorded Confirmed Atorvastatin [Lipitor] 80 mg PO HS 04/29/20 11/22/23 Clopidogrel [Plavix] 75 mg PO HS 07/08/20 11/22/23 Montelukast [Singulair] 10 mg PO HS 09/24/20 11/22/23 Metoprolol Tartrate [Lopressor] 100 mg PO BID 09/19/21 11/22/23 Insulin Glargine,Hum.rec.anlog 12 units SQ HS PRN 10/21/21 11/22/23 [Lantus Solostar Pen] lisinopriL [Zestril] 20 mg PO BID 10/21/21 11/22/23 Aspirin [Adult Low Dose Aspirin EC] 81 mg PO DAILY 04/13/23 11/22/23 Semaglutide [Ozempic] 1 mg SQ TU 04/13/23 11/22/23 metFORMIN HCL [metFORMIN HCL ER] 750 mg PO BID 11/22/23 11/22/23 Allergies Allergy/AdvReac Type Severity Reaction Status Date / Time No Known Allergies Allergy Verified 11/22/23 18:04 Review of Systems ROS Other: All systems not noted in ROS Statement are negative. <Rony Bernabe - Last Filed: 11/27/23 15:39> ROS Other: All systems not noted in ROS Statement are negative. <Roly Duran - Last Filed: 12/04/23 15:55> ROS Statement: Those systems with pertinent positive or pertinent negative responses have been documented in the HPI. EKG Findings - EKG Comments: EKG Findings:: EKG is sinus 73 MA 159 QRS 108 QTc 403 - EKG Results: EKG: interpreted by ERMD <Roly Duran - Last Filed: 12/04/23 15:55> Past Medical History Past Medical History: Coronary Artery Disease (CAD), COPD, Diabetes Mellitus, Hyperlipidemia, Hypertension, Myocardial Infarction (VT), Osteoarthritis (OA), Pneumonia, Skin Disorder, Sleep Apnea/CPAP/BIPAP, Supraventricular Tachycardia (SVT) Additional Past Medical History / Comment(s): hx acute hypoxic respiratory failure, sepsis d/t pneumonia, arthritis bilat hands, occ rash on face, sleep apnea - uses CPAP, umbilical hernia, SVT with successful ablation Last Myocardial Infarction Date:: 12-23-16 History of Any Multi-Drug Resistant Organisms: None Reported Past Surgical History: Appendectomy, Cardiac Ablation, Cardiac Valve Replacement, Coronary Bypass/CABG, Heart Catheterization With Stent, Orthopedic Surgery Additional Past Surgical History / Comment(s): Cardiac ablation for SVT, Rt. carotid endartectomy, bilateral carpal tunnel releases, colonoscopies/benign polyps. PTCA w/ 3 stents, CABG, bypass x1, aortic Valve replaced w/ bovine 09/28/20. Past Anesthesia/Blood Transfusion Reactions: No Reported Reaction Additional Past Anesthesia/Blood Transfusion Reaction / Comment(s): Pt has claustrophobia w/ MRI but no problems w/ O2 mask or CPAP. Date of Last Stent Placement:: 12-23-16 Past Psychological History: No Psychological Hx Reported Smoking Status: Former smoker Past Alcohol Use History: None Reported Past Drug Use History: None Reported - Past Family History Father Brother(s) Family Medical History: Cancer Additional Family Medical History / Comment(s): Father from colon cancer at the age of 63 yrs. Brother had colon cancer with surgical removal. One brother has Type II DM and another brother had AVR. Mother Family Medical History: Coronary Artery Disease (CAD), Diabetes Mellitus, Myocardial Infarction (VT) Additional Family Medical History / Comment(s): Mother of a VT at the age of 79yrs. She had an AICD/pacer. <Rony Bernabe - Last Filed: 11/27/23 15:39> General Exam Limitations: no limitations <Rony Bernabe - Last Filed: 11/27/23 15:39> General appearance: alert, in no apparent distress, anxious Head exam: Present: atraumatic, normocephalic, normal inspection Eye exam: Present: normal appearance, PERRL, EOMI. Absent: scleral icterus, conjunctival injection, periorbital swelling ENT exam: Present: normal exam, mucous membranes moist Neck exam: Present: normal inspection. Absent: tenderness, meningismus, lymp hadenopathy Respiratory exam: Present: normal lung sounds bilaterally. Absent: respiratory distress, wheezes, rales, rhonchi, stridor Cardiovascular Exam: Present: regular rate, normal rhythm, normal heart sounds. Absent: systolic murmur, diastolic murmur, rubs, gallop, clicks GI/Abdominal exam: Present: soft, normal bowel sounds. Absent: distended, tenderness, guarding, rebound, rigid Extremities exam: Present: normal inspection, full ROM, normal capillary refill. Absent: tenderness, pedal edema, joint swelling, calf tenderness Back exam: Present: normal inspection Neurological exam: Present: alert, oriented X3, CN II-XII intact Psychiatric exam: Present: normal affect, normal mood Skin exam: Present: warm, dry, intact, normal color. Absent: rash <Roly Duran - Last Filed: 12/04/23 15:55> - General Exam Comments Initial Comments: I performed the quick note portion of this chart. Electronically signed by Rony Bernabe PA-C (Rony Bernabe) Course <Roly Duran - Last Filed: 12/04/23 15:55> Vital Signs 11/22/23 11/22/23 11/22/23 15:54 18:47 20:45 Temperature 98.8 F Pulse Rate 72 66 71 Respiratory 18 20 16 Rate Blood Pressure 159/74 164/95 147/70 O2 Sat by Pulse 97 95 96 Oximetry 11/22/23 22:19 Temperature Pulse Rate 70 Respiratory 18 Rate Blood Pressure 152/78 O2 Sat by Pulse 98 Oximetry - Reevaluation(s) Reevaluation #1: Medical records reviewed (Roly Duran) Reevaluation #2: Patient symptoms unchanged, still with chest pain (Roly Duran) Reevaluation #3: Patient informed of results and questions answered (Roly Duran) Reevaluation #4: Was pt. sent in by a medical professional or institution (JOANIE Olivas, [employer]PLES AND REPAIRS PREPARER, urgent care, hospital, or halfway...) When possible be specific @ -no Did you speak to anyone other than the patient for history (EMS, parent, family, police, friend...)? What history was obtained from this source @ -no Did you review nursing and triage notes (agree or disagree)? Why? @ -agree Are old charts reviewed (outside hosp., previous admission, EMS record, old EKG, old radiological studies, urgent care reports/EKG's, halfway records)? Report findings @ -yes Differential Diagnosis (chest pain, altered mental status, abdominal pain women, abdominal pain men, vaginal bleeding, weakness, fever, dyspnea, syncope, headache, dizziness, GI bleed, back pain, seizure, CVA, palpatations, mental health, musculoskeletal)? @ -prior EKG interpreted by me (3pts min.). @ -yes X-rays interpreted by me (1pt min.). @ -yes negative for acute disease CT interpreted by me (1pt min.). @ -no U/S interpreted by me (1pt. min.). @ -no What testing was considered but not performed or refused? (CT, X-rays, U/S, labs)? Why? @ -none What meds were considered but not given or refused? Why? @ -none Did you discuss the management of the patient with other professionals (professionals i.e. JOANIE Olivas, [employer] AND REPAIRS PREPARER, lab, RT, psych nurse, social worker health services, rail operator, teacher, booking police officer, manager of case management)? Give summary @ -no Was smoking cessation discussed for >3mins.? @ -no Was critical care preformed (if so, how long)? @ -yes31 Were there social determinants of health that impacted care today? How? (Homelessness, low income, unemployed, alcoholism, drug addiction, transportation, low edu. Level, literacy, decrease access to med. care, [facility], rehab)? @ -none Was there de-escalation of care discussed even if they declined (Discuss DNR or withdrawal of care, Hospice)? DNR status @ -no What co-morbidities impacted this encounter? (DM, HTN, Smoking, COPD, CAD, Cancer, CVA, ARF, Chemo, Hep., AIDS, mental health diagnosis, sleep apnea, morbid obesity)? @ -none Was patient admitted / discharged? Hospital course, mention meds given and route, prescriptions, significant lab abnormalities, going to OR and other pertinent info. @ - 63 male to ER for evaluation patient will be admitted for non-ST elevated VT chest pain and elevated troponin Undiagnosed new problem with uncertain prognosis? @ -no Drug Therapy requiring intensive monitoring for toxicity (Heparin, Nitro, Insulin, Cardizem)? @ -no Were any procedures done? @ -no Diagnosis/symptom? @ -Non-STEMI Acute, or Chronic, or Acute on Chronic? @ -Acute Uncomplicated (without systemic symptoms) or Complicated (systemic symptoms)? @ -Complicated Side effects of treatment? @ -no Exacerbation, Progression, or Severe Exacerbation? @ -exacerbation Poses a threat to life or bodily function? How? (Chest pain, USA, VT, pneumonia, PE, COPD, DKA, ARF, appy, cholecystitis, CVA, Diverticulitis, Homicidal, Suicidal, threat to staff... and all critical care pts) @ -yes (Roly Duran) Reevaluation #5: Differential Chest Pain: Stable Angina, Unstable Angina, STEMI, NSTEMI Aortic Dissection, Pneumothorax, Musculoskeletal, Esophageal Spasm GERD, Cholecystitis, Pancreatitis, Zoster, this is not meant to be an all-inclusive list. (Roly Duran) - Consultations Consultation #1: Spoke with admitting physicians who agreed to admit this patient (Roly Duran) Chest Pain MDM <Rony Bernabe - Last Filed: 11/27/23 15:39> <Roly Duran - Last Filed: 12/04/23 15:55> - MDM I performed the quick note portion of this chart. Electronically signed by Rony Bernabe PA-C (Rony Bernabe) 63 male to ER for evaluation patient will be admitted for non-ST elevated VT chest pain and elevated troponin (Roly Duran) Critical Care Time Critical Care Time: Yes Total Critical Care Time: 31 <Roly Duran - Last Filed: 12/04/23 15:55> Disposition <Rony Bernabe - Last Filed: 11/27/23 15:39> <Roly Duran - Last Filed: 12/04/23 15:55> Clinical Impression: NSTEMI (non-ST elevated myocardial infarction) Disposition: ADMITTED IP TO THIS HOSP Condition: Good
[2023-11-22 16:29] LABS: Basophils % (A) 0 %; Eosinophils # (A) 0.2 k/uL (0-0.7); Eosinophils % (A) 2 %; HCT 46.7 % (39.0-53.0); HGB 15.1 gm/dL (13.0-17.5); Lymphocytes # (A) 2.4 k/uL (1.0-4.8); Lymphocytes % (A) 25 %; MCH 29.1 pg (25.0-35.0); MCHC 32.3 g/dL (31.0-37.0); MCV 89.8 fL (80.0-100.0); Monocytes # (A) 0.8 k/uL (0-1.0); Monocytes % (A) 8 %; Neutrophils % (A) 63 %; Platelet Count 231 k/uL (150-450); RDW 12.8 % (11.5-15.5); WBC 9.5 k/uL (3.8-10.6)
[2023-11-22 16:40] LABS: Partial Thromboplastin Time 23.8 sec (22.0-30.0); Prothrombin Time 11.1 sec (10.0-12.5)
[2023-11-22 16:44] LABS: ALT 42 U/L (4-49); AST 29 U/L (17-59); African American GFR (CKD) >90 (>60 ml/min/1.73 sqM); Albumin 4.6 g/dL (3.5-5.0); Alkaline Phosphatase 44 U/L (38-126); Anion Gap 10 mmol/L; Blood Urea Nitrogen 19 mg/dL (9-20); Calcium 9.5 mg/dL (8.4-10.2); Carbon Dioxide 25 mmol/L (22-30); Chloride 105 mmol/L (98-107); Glucose 144 mg/dL (74-99); Magnesium 1.7 mg/dL (1.6-2.3); Non-African American GFR(CKD) >90 (>60 ml/min/1.73 sqM); Potassium 4.7 mmol/L (3.5-5.1); Sodium 140 mmol/L (137-145); Total Bilirubin 0.6 mg/dL (0.2-1.3); Total Protein 6.9 g/dL (6.3-8.2)
--- NOTE | 2023-11-22 17:16 | XR ---
EXAMINATION TYPE: XR chest 2V DATE OF EXAM: 11/22/2023 COMPARISON: 09/22/2021 INDICATION: Chest pain TECHNIQUE: Frontal and lateral views of the chest are obtained. FINDINGS: The heart size is normal. The pulmonary vasculature is normal. The lungs are clear. Sternotomy wires from prior cardiac valve surgery are evident. IMPRESSION: 1. No acute pulmonary process. [facility], , 11/22/2023 5:14 PM
[2023-11-22] MEDS ORDERED: NITROGLYCERIN SL TABS 0.4 MG TAB SUBLINGUAL PRN (18:12)
[2023-11-22] MEDS: HEPARIN SODIUM 1,000 UN/ML (10ML VL) IV ONE (18:50)
[2023-11-22] MEDS: HEPARIN SOD,PORK IN 0.45% NACL 25,000 UNIT in 0.45% NACL 1 250ML.BAG IV SCH (18:51)
[2023-11-22] MEDS: ASPIRIN 81 MG PO STA (18:55)
[2023-11-22] MEDS: METOPROLOL TARTRATE 25 MG TAB PO SCH (21:21)
[2023-11-23 04:25] LABS: Mean Platelet Volume 8.1; Platelet Count 202 k/uL (150-450)
[2023-11-23 05:42] LABS: Glucose,Whole Blood 124 mg/dL (70-110)
[2023-11-23] MEDS ORDERED: ALPRAZolam 0.25 MG TAB PO PRN (08:17)
[2023-11-23] MEDS ORDERED: NITROGLYCERIN SL TABS 0.4 MG TAB SUBLINGUAL PRN (08:17)
[2023-11-23] MEDS ORDERED: ALPRAZolam 0.5 MG TAB PO PRN (08:17)
[2023-11-23 08:58] LABS: Chol/HDL Ratio 3.72 Ratio; LDL Cholesterol,Calculated 26.4 mg/dL (0.0-131.0)
[2023-11-23] MEDS ORDERED: ASPIRIN 325 MG TAB PO SCH (09:00)
[2023-11-23] MEDS: METOPROLOL TARTRATE 50 MG TAB PO SCH (09:29)
[2023-11-23] MEDS: ATORVASTATIN 80 MG TAB PO SCH (09:29)
[2023-11-23] MEDS: ATORVASTATIN 80 MG TAB PO STA (09:29)
[2023-11-23] MEDS: ASPIRIN 81 MG PO SCH (09:29)
[2023-11-23] MEDS: lisinopriL 20 MG TAB PO SCH (09:30)
[2023-11-23] MEDS: ASPIRIN 325 MG TAB PO STA (09:30)
--- NOTE | 2023-11-23 10:13 | CA ---
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 [employer] Aliyah Bustos, MELLY Procedure CPT: Indications: CP Cardiac Hx: Cath, CABG, Bioprosthetic AV Technical Quality: Poor Contrast 1: Definity Total Dose (mL): 2 Contrast 2: Total Dose (mL): MEASUREMENTS (Male / Female) Normal Values 2D ECHO LV Diastolic Diameter PLAX 5.2 cm 4.2 - 5.9 / 3.9 - 5.3 cm LV Systolic Diameter PLAX 3.7 cm IVS Diastolic Thickness 1.1 cm 0.6 - 1.0 / 0.6 - 0.9 cm LVPW Diastolic Thickness 1.2 cm 0.6 - 1.0 / 0.6 - 0.9 cm LV Relative Wall Thickness 0.4 RV Internal Dim ED PLAX 2.2 cm LVOT Diameter 2.0 cm LA Systolic Diameter LX 4.8 cm 3.0 - 4.0 / 2.7 - 3.8 cm M-MODE Aortic Root Diameter MM 2.9 cm LA Systolic Diameter MM 3.8 cm LA Ao Ratio MM 1.3 DOPPLER AV Peak Velocity 248.9 cm/s AV Peak Gradient 24.8 mmHg AV Mean Velocity 173.7 cm/s AV Mean Gradient 13.9 mmHg AV Velocity Time Integral 56.9 cm LVOT Peak Velocity 129.8 cm/s LVOT Peak Gradient 6.7 mmHg LVOT Velocity Time Integral 31.4 cm LVOT Stroke Volume 95.6 cm??? LVOT Stroke Volume Index 41.2 ml/m??? LVOT Cardiac Index 2722.6 cm???/min???m??? AV Area Cont Eq vti 1.7 cm??? AV Area Cont Eq pk 1.6 cm??? Mitral E Point Velocity 121.8 cm/s Mitral A Point Velocity 131.8 cm/s Mitral E to A Ratio 0.9 MV Deceleration Time 380.6 ms MV E' Velocity 6.6 cm/s Mitral E to MV E' Ratio 18.4 TR Peak Velocity 260.4 cm/s TR Peak Gradient 27.1 mmHg FINDINGS Left Ventricle Left ventricular ejection fraction is estimated at 30-35 %. Left ventricular cavity size normal. Borderline left ventricular hypertrophy. [place] akinetic. Right Ventricle Normal right ventricular size and function. Right ventricular systolic pressure within normal limits. Right Atrium Mild right atrial dilatation. Left Atrium Moderately increased left atrial diameter. Mitral Valve Structurally normal mitral valve. Trace mitral regurgitation. No mitral stenosis. Aortic Valve Normally functioning bioprosthetic aortic valve without stenosis with a peak velocity of 2.48 m/s, peak gradient 25mmHg, mean gradient 14 mmHg. Tricuspid Valve Structurally normal tricuspid valve. Trace tricuspid regurgitation. No tricuspid stenosis. Pulmonic Valve Structurally normal pulmonic valve. No pulmonic regurgitation. No pulmonic stenosis. Pericardium No pericardial or pleural effusion. Aorta Normal size aortic root and proximal ascending aorta. CONCLUSIONS Diagnosis; patient presenting with angina, rule out ID, history of coronary artery disease coronary artery bypass grafting bioprosthetic aortic valve Reduced LV systolic function with a large apical aneurysm without any intracardiac mass or thrombus Biatrial enlargement Bioprosthetic aortic valve stable with a peak gradient of 25 mmHg Previewed by: Dr. Adam Souza MD (Electronically Signed) Final Date: 23 November 2023 10:12
[2023-11-23 10:19] LABS: Partial Thromboplastin Time 34.9 sec (22.0-30.0)
[2023-11-23] MEDS: IV FLUID CONTINUATION 1,000 ML IV ONE (11:43)
[2023-11-23] MEDS: fentaNYL (PF) 50 MCG/ML 2 ML AMP IVP ONE (12:20)
[2023-11-23] MEDS: LIDOCAINE 1% INJ 10MG/ML (20 ML MDV) SQ ONE (12:24)
[2023-11-23] MEDS: VERAPAMIL SYRINGE (5 MG/10 ML) INTRAARTER ONE (12:27)
[2023-11-23] MEDS: HEPARIN SODIUM 1,000 UN/ML (10ML VL) IVP ONE (12:31)
[2023-11-23] MEDS: IOPAMIDOL-370 100ML BTL INJ ONE (12:57)
[2023-11-23] MEDS: HEPARIN SODIUM,PORCINE 10,000 UNIT in SODIUM CHLORIDE 0.9% 1,000 ML IRRIGATION PRN (12:58)
[2023-11-23] MEDS: HEPARIN SODIUM,PORCINE (1 ML) 2,500 UNIT in SODIUM CHLORIDE 0.9% 250 ML IRRIGATION PRN (12:58)
[2023-11-23] MEDS ORDERED: RX INFO: IV CONTRAST WAS GIVEN 1 EACH MISC MISCELLANE PRN (13:10)
[2023-11-23] MEDS ORDERED: DEXTROSE 50% SYRINGE 50 ML IVP PRN ×2 (13:11)
--- NOTE | 2023-11-23 13:16 | P.HPIM ---
History of Present Illness H&P Date: 11/23/23 Patient is 63-year-old male with a past medical history of coronary artery disease, CABG, aortic valve replacement, stent placement, bilateral carotid endarterectomy, hypertension, hyperlipidemia, diabetes melitis type II, history of ID, obstructive sleep apnea on CPAP presented to the emergency department with chest pain for about 90 minutes. He tried taking aspirin and nitro with no immediate relief during the episode but while in the ED he had resolution of his chest pain. He describes the chest pain as starting in his back and radiating to his chest jaw and ear more on the left side than the right. He endorses diaphoresis at the time. He states that he has had similar symptoms to this in the past when he had an ID. He rates the pain 8/10 at the time. At the time he denies shortness of breath, palpitations, nausea, vomiting, weakness, abdominal pain, lightheadedness. EKG shows sinus rhythm with borderline right axis deviation. Chest x-ray is unremarkable. WBCs 9.5, hemoglobin 15.1, platelets 231, sodium 140, potassium 4.7, CO2 25, creatinine 0.68, troponins x 3 < 0.012. Afebrile, hypertensive, normal respiratory effort, saturating well on room air. ED documentation reviewed. Review of systems: Pertinent positives and negatives as discussed in HPI, a complete review of systems was performed and all other systems are negative. Social history: Tobacco: Former; quit 14 years Alcohol: Occasionally Recreational drugs: Denies Travel: Denies Occupation: Retired Physical examination: Vital signs are reviewed. General: No acute distress. AOx4. HEENT: Head exam is unremarkable. EOMI bilaterally. ACs patent. Nares patent. Lungs: Bilateral breath sounds present; no rhonchi, wheezes, or rales. Heart: Rate and rhythm are regular. S1-S2 present. No murmur/rub/gallops. Abdomen: Soft, nontender, nondistended. Bowel sounds present. Extremities: No edema present. Symmetric movement. Psych: Normal affect and mood. Cooperative. Assessment/Plan: Chest pain Consulted cardiologyundergoing cardiac catheterization today; pending further recommendations Monitor vitals Diabetes mellitus type 2 Monitor glucose Insulin sliding scale COPD Restart home medications Hypertension Restart home medications Hyperlipidemia Restart home medications DVT prophylaxis: Plavix Chronic conditions: Diabetes mellitus type 2, COPD, hypertension, hyperlipid emia, obstructive sleep apnea The patient is admitted with an anticipated less than 2 midnight stay for evaluation of chest pain. Discussed with: Patient Anticipated discharge place: Home Attestation I have seen and examined this patient with my resident , discussed the same with the resident/RICKY, and agree with the dictator's assessment and plan as written GENERAL: The patient is alert and oriented x3, not in any acute distress. Well developed, well nourished. HEENT: Pupils are round and equally reacting to light. EOMI. No scleral icterus. No conjunctival pallor. Normocephalic, atraumatic. No pharyngeal erythema. No thyromegaly. CARDIOVASCULAR: S1 and S2 present. No murmurs, rubs, or gallops. PULMONARY: Chest is clear to auscultation, no wheezing or crackles. ABDOMEN: Soft, nontender, nondistended, normoactive bowel sounds. No palpable organomegaly. MUSCULOSKELETAL: No joint swelling or deformity. EXTREMITIES: No cyanosis, clubbing, or pedal edema. NEUROLOGICAL: Gross neurological examination did not reveal any focal deficits. SKIN: No rashes. Dr. Alin parra Past Medical History Past Medical History: Coronary Artery Disease (CAD), COPD, Diabetes Mellitus, Hyperlipidemia, Hypertension, Myocardial Infarction (ID), Osteoarthritis (OA), Pneumonia, Skin Disorder, Sleep Apnea/CPAP/BIPAP, Supraventricular Tachycardia (SVT) Additional Past Medical History / Comment(s): hx acute hypoxic respiratory failure, sepsis d/t pneumonia, arthritis bilat hands, occ rash on face, sleep apnea - uses CPAP, umbilical hernia, SVT with successful ablation Last Myocardial Infarction Date:: 12-23-16 History of Any Multi-Drug Resistant Organisms: None Reported Past Surgical History: Appendectomy, Cardiac Ablation, Cardiac Valve Replacement, Coronary Bypass/CABG, Heart Catheterization With Stent, Orthopedic Surgery Additional Past Surgical History / Comment(s): Cardiac ablation for SVT, Rt. carotid endartectomy, bilateral carpal tunnel releases, colonoscopies/benign polyps. PTCA w/ 3 stents, CABG, bypass x1, aortic Valve replaced w/ bovine 09/28/20. Past Anesthesia/Blood Transfusion Reactions: No Reported Reaction Additional Past Anesthesia/Blood Transfusion Reaction / Comment(s): Pt has claustrophobia w/ MRI but no problems w/ O2 mask or CPAP. Date of Last Stent Placement:: 12-23-16 Past Psychological History: No Psychological Hx Reported Additional Psychological History / Comment(s): PT resides with his spouse. He works for the [employer]. He is independent. Smoking Status: Former smoker Past Alcohol Use History: None Reported Additional Past Alcohol Use History / Comment(s): Pt started smoking in 1980, 1 ppd, quit in 2010. Past Drug Use History: None Reported Additional Drug Use History / Comment(s): uses CBD oils on shoulders occ - Past Family History Father Brother(s) Family Medical History: Cancer Additional Family Medical History / Comment(s): Father from colon cancer at the age of 63 yrs. Brother had colon cancer with surgical removal. One brother has Type II DM and another brother had AVR. Mother Family Medical History: Coronary Artery Disease (CAD), Diabetes Mellitus, Myocardial Infarction (ID) Additional Family Medical History / Comment(s): Mother of a ID at the age of 79yrs. She had an AICD/pacer. Medications and Allergies Home Medications Medication Instructions Recorded Confirmed Type Atorvastatin [Lipitor] 80 mg PO HS 04/29/20 11/22/23 History Clopidogrel [Plavix] 75 mg PO HS 07/08/20 11/22/23 History Montelukast [Singulair] 10 mg PO HS 09/24/20 11/22/23 History Metoprolol Tartrate [Lopressor] 100 mg PO BID 09/19/21 11/22/23 History Insulin Glargine,Hum.rec.anlog 12 units SQ HS PRN 10/21/21 11/22/23 History [Lantus Solostar Pen] lisinopriL [Zestril] 20 mg PO BID 10/21/21 11/22/23 History Aspirin [Adult Low Dose Aspirin EC] 81 mg PO DAILY 04/13/23 11/22/23 History Semaglutide [Ozempic] 1 mg SQ TU 04/13/23 11/22/23 History metFORMIN HCL [metFORMIN HCL ER] 750 mg PO BID 11/22/23 11/22/23 History Allergies Allergy/AdvReac Type Severity Reaction Status Date / Time No Known Allergies Allergy Verified 11/22/23 18:04 Physical Exam Vitals: Vital Signs Temp Pulse Pulse Resp BP BP Pulse Ox 11/23/23 01:53 98.7 F 74 18 120/68 95 11/22/23 22:45 98.6 F 89 18 145/82 95 11/22/23 22:19 70 18 152/78 98 11/22/23 20:45 71 16 147/70 96 11/22/23 18:47 66 20 164/95 95 11/22/23 15:54 98.8 F 72 18 159/74 97 Intake and Output 11/22/23 11/23/23 11/23/23 22:59 06:59 14:59 Intake Total 76.174 Balance 76.174 Intake: Intake, IV Titration 76.174 Amount Heparin Sod,Pork in 0.45% 76.174 NaCl 25,000 unit In 0.45 % NaCl 1 250ml.bag @ 8. 819 UNITS/KG/HR 10.001 mls/hr IV .Q24H [facility] Rx#: [id number] Oral 0 Other: # Voids 2 Weight 113.398 kg Results CBC & Chem 7: 11/24/23 03:58 11/22/23 16:02 Labs: Abnormal Lab Results - Last 24 Hours (Table) 11/22/23 11/23/23 11/23/23 Range/Units 16:02 01:16 05:40 APTT 30.9 H (22.0-30.0) sec Glucose 144 H (74-99) mg/dL POC Glucose (mg/dL) 124 H (70-110) mg/dL Thrombosis Risk Factor Assmnt - Choose All That Apply Any of the Below Risk Factors Present?: Yes Each Factor Represents 1 point: Abnormal pulmonary function (COPD) Other Risk Factors: Yes Each Risk Factor Represents 2 Points: Age 61-74 years Thrombosis Risk Factor Assessment Total Risk Factor Score: 3 Thrombosis Risk Factor Assessment Level: Moderate Risk
--- NOTE | 2023-11-23 13:21 | P.CARDCATH ---
Date of Procedure: 11/23/23 Description of Procedure: Cardiac Catheterization: The patient is a 63-year-old male known history of CAD status post CABG and PCI, status post aortic valve replacement who presented with symptoms of chest discomfort but no troponin elevation. He was evaluated by Dr. Souza. Recommendations were made regarding cardiac catheterization, the risks and the complications were discussed with the patient who is in full understanding and agreement. Procedure Description: Patient was brought to slab grinder in fasting semi-sedated state after receiving Fentanyl and Benadryl achieiving moderate conscious sedated state. Using Xylocaine Anesthesia and modified Seldinger technique, a 6-Jamaican sheath was introduced in the left radial artery . Subsequently, selective coronary angiography was performed using a 5-Jamaican 4 bend Belen catheter. Multiple views of the coronary artery including hemiaxial views were obtained. A 6 [place] CESAR catheter was used to cannulate the LIU to the LAD. Following that, catheter and sheath were removed. Hemostasis was obtained with deployment of vascular band . There was no immediate complication. Patient was returned to room in stable condition. Of note, the patient received a total of 5000 units of intravenous heparin as well as intra-arterial verapamil. Findings: Left main: This is a short size vessel, bifurcating into LAD and left circumflex, left main has no obstructive disease. LAD: The ostium of the LAD has a 30% plaque, the stented segment in the mid LAD is subtotally occluded with minimal antegrade flow. There is a moderate diagonal branch prior to the occlusion that has no obstructive disease. Left circumflex: This is a large dominant vessel, bifurcating to PDA and PLV. The distal left circumflex has 20 to 30% plaque with no high-grade stenosis RCA: This is a known nondominant vessel, the conus branch was cannulated and there was difficulty cannulating the ostium of the RCA. It is known to have 70% stenosis proximally. CESAR to the LAD: The distal anastomotic site is patent the flow into the LAD is brisk there is no obstructive disease Left Ventriculogram: Not performed Conclusion: 1. Subtotally occluded mid LAD at the site of the prior stenting with patent LIU to the LAD 2. Mild disease in the left circumflex, dominant vessel 3. Nonobstructive disease in the small nondominant right Recommendations: I have recommended to continue medical therapy I see no significant progression of disease. Continue medical therapy with aggressive coronary risk modifications will be initiated. The findings and the recommendations were discussed with the patient and the family and they were in full understanding and agreement. Duration of sedation is 27 minutes.
--- NOTE | 2023-11-23 17:27 | P.CRDCN ---
History of Present Illness History of present illness: This is Dr. Souza dictating a consult on this patient The patient was interviewed and examined IMPRESSION / ASSESSMENT: Chest discomfort that reminded him of his anginal symptoms prior to coronary stenting Known coronary artery disease status post stenting in the past and then subsequently single-vessel coronary artery bypass grafting Bioprosthetic aortic valve replacement Past history of cardiomyopathy No evidence for acute myocardial infarction at this admission/normal troponins Abnormal V1 through V3 leads on twelve-lead EKG Hypertriglyceridemia, excellent LDL Type 2 diabetes PLAN: Discussed with Dr. Lozano In view of his symptoms that are worrisome for angina, we will proceed with coronary angiography Further management thereafter Consider adding Zetia transfer tech HPI The patient started to experience mid back discomfort that radiated through to the front of his chest. He experienced jaw discomfort and left arm numbness and discomfort. This reminded him of his angina before he had a coronary stent placed several years back. Chest x-ray was normal Lead EKG showed a rightward axis QRS fractionation in leads V1 and V2 with ST elevation in V2 and V3. The follow-up EKG showed T wave inversions in V1 and V2 and V3 When I examined him he is not experiencing any chest discomfort He has a past history of coronary stenting to the LAD Subsequently underwent single-vessel bypass surgery and bioprosthetic aortic valve replacement for severe calcific aortic stenosis. At that time he had a cardiomyopathy ejection fraction of about 35%. This was in 21 ROS: No fever chills or rigors, no cough, phlegm or expectoration, no nausea, vomiting or diarrhea, no hematuria, dysuria, no musculoskeletal complaints, no strokes or seizures, no skin lesions. EXAMINATION: 145/82 mmHg pulse rate in the 80s afebrile Breath sounds are clear no rhonchi no crackles Heart sounds S1 is normal S2 is crisp No JVD REVIEW OF LABS, ECG & MEDICAL DATA Normal white count. Normal hemoglobin Normal platelet count Electrolytes normal renal function normal Elevated triglycerides of 252, LDL 26 Past Medical History Past Medical History: Coronary Artery Disease (CAD), COPD, Diabetes Mellitus, Hy perlipidemia, Hypertension, Myocardial Infarction (MA), Osteoarthritis (OA), Pneumonia, Skin Disorder, Sleep Apnea/CPAP/BIPAP, Supraventricular Tachycardia (SVT) Additional Past Medical History / Comment(s): hx acute hypoxic respiratory failure, sepsis d/t pneumonia, arthritis bilat hands, occ rash on face, sleep apnea - uses CPAP, umbilical hernia, SVT with successful ablation Last Myocardial Infarction Date:: 12-23-16 History of Any Multi-Drug Resistant Organisms: None Reported Past Surgical History: Appendectomy, Cardiac Ablation, Cardiac Valve Replacement, Coronary Bypass/CABG, Heart Catheterization With Stent, Orthopedic Surgery Additional Past Surgical History / Comment(s): Cardiac ablation for SVT, Rt. carotid endartectomy, bilateral carpal tunnel releases, colonoscopies/benign polyps. PTCA w/ 3 stents, CABG, bypass x1, aortic Valve replaced w/ bovine /2 08/24. Past Anesthesia/Blood Transfusion Reactions: No Reported Reaction Additional Past Anesthesia/Blood Transfusion Reaction / Comment(s): Pt has cla ustrophobia w/ MRI but no problems w/ O2 mask or CPAP. Date of Last Stent Placement:: 12-23-16 Past Psychological History: No Psychological Hx Reported Additional Psychological History / Comment(s): PT resides with his spouse. He works for the [employer]. He is independent. Smoking Status: Former smoker Past Alcohol Use History: None Reported Additional Past Alcohol Use History / Comment(s): Pt started smoking in 1980, 1 ppd, quit in 2010. Past Drug Use History: None Reported Additional Drug Use History / Comment(s): uses CBD oils on shoulders occ - Past Family History Father Brother(s) Family Medical History: Cancer Additional Family Medical History / Comment(s): Father from colon cancer at the age of 63 yrs. Brother had colon cancer with surgical removal. One brother has Type II DM and another brother had AVR. Mother Family Medical History: Coronary Artery Disease (CAD), Diabetes Mellitus, Myocardial Infarction (MA) Additional Family Medical History / Comment(s): Mother of a MA at the age of 79yrs. She had an AICD/pacer. Medications and Allergies Home Medications Medication Instructions Recorded Confirmed Type Atorvastatin [Lipitor] 80 mg PO HS 04/29/20 11/22/23 History Clopidogrel [Plavix] 75 mg PO HS 07/08/20 11/22/23 History Montelukast [Singulair] 10 mg PO HS 09/24/20 11/22/23 History Metoprolol Tartrate [Lopressor] 100 mg PO BID 09/19/21 11/22/23 History Insulin Glargine,Hum.rec.anlog 12 units SQ HS PRN 10/21/21 11/22/23 History [Lantus Solostar Pen] lisinopriL [Zestril] 20 mg PO BID 10/21/21 11/22/23 History Aspirin [Adult Low Dose Aspirin EC] 81 mg PO DAILY 04/13/23 11/22/23 History Semaglutide [Ozempic] 1 mg SQ TU 04/13/23 11/22/23 History metFORMIN HCL [metFORMIN HCL ER] 750 mg PO BID 11/22/23 11/22/23 History Allergies Allergy/AdvReac Type Severity Reaction Status Date / Time No Known Allergies Allergy Verified 11/22/23 18:04 Physical Exam Vitals: Vital Signs Temp Pulse Pulse Resp BP BP Pulse Ox 11/23/23 08:00 98.3 F 72 16 144/79 95 11/23/23 01:53 98.7 F 74 18 120/68 95 11/22/23 22:45 98.6 F 89 18 145/82 95 11/22/23 22:19 70 18 152/78 98 11/22/23 20:45 71 16 147/70 96 11/22/23 18:47 66 20 164/95 95 Intake and Output 11/23/23 11/23/23 11/23/23 06:59 14:59 22:59 Intake Total 76.174 415.619 Balance 76.174 415.619 Intake: IV 200 Intake, IV Titration 76.174 97.619 Amount Heparin Sod,Pork in 0.45% 76.174 97.619 NaCl 25,000 unit In 0.45 % NaCl 1 250ml.bag @ 8. 819 UNITS/KG/HR 10.001 mls/hr IV .Q24H [facility] Rx#: [id number] Oral 0 118 Other: # Voids 2 Results 11/23/23 03:31 11/22/23 16:02 Cardiac Enzymes 11/22/23 11/22/23 Range/Units 19:58 22:00 Troponin I <0.012 <0.012 (0.000-0.034) ng/mL Coagulation 11/23/23 11/23/23 Range/Units 01:16 09:27 APTT 30.9 H 34.9 H (22.0-30.0) sec Lipids 11/23/23 Range/Units 03:31 Triglycerides 252.00 H (0.00-149.00) mg/dL Cholesterol 105.00 (0.00-200.00) mg/dL HDL Cholesterol 28.20 L (40.00-60.00) mg/dL Cholesterol/HDL Ratio 3.72 Ratio CBC 11/23/23 Range/Units 03:31 Plt Count 202 (150-450) k/uL Current Medications Generic Name Dose Route Start Last Admin Trade Name Freq PRN Reason Stop Dose Admin Alprazolam 0.25 mg 11/23/23 08:17 Alprazolam 0.25 Mg Tab PO Q6HR PRN Mild Anxiety Alprazolam 0.5 mg 11/23/23 08:17 Alprazolam 0.5 Mg Tab PO Q6HR PRN Moderate Anxiety Aspirin 81 mg 11/23/23 09:00 11/23/23 09:29 Aspirin 81 Mg PO Not Given DAILY [facility] Atorvastatin Calcium 80 mg 11/23/23 09:00 11/23/23 09:29 Atorvastatin 80 Mg Tab PO 80 mg DAILY [facility] Administration Clopidogrel Bisulfate 75 mg 11/23/23 21:00 Clopidogrel 75 Mg Tab PO HS [facility] Dextrose/Water 25 ml 11/23/23 13:11 Dextrose 50% Syringe 50 Ml IVP PER PROTOCOL PRN Hypoglycemia Protocol Dextrose/Water 50 ml 11/23/23 13:11 Dextrose 50% Syringe 50 Ml IVP PER PROTOCOL PRN Hypoglycemia Protocol Heparin Sodium (Porcine) 10, 1,001 mls @ 999 mls/hr 11/24/23 07:00 11/23/23 12:58 000 unit/ Sodium Chloride IRRIGATION 11/24/23 23:00 0 mls ONCE PRN Administration INTRA-OP Heparin Sodium (Porcine) 2,500 250.5 mls @ 250 mls/hr 11/24/23 07:00 11/23/23 12:58 unit/ Sodium Chloride IRRIGATION 11/24/23 23:00 0 mls ONCE PRN Administration INTRA-OP Insulin Aspart 0 unit 11/23/23 17:30 Insulin Aspart (Novolog) 100 Unit/Ml Vial SQ ACHS [facility] Protocol Insulin Detemir 12 unit 11/23/23 21:00 Insulin Detemir (Levemir) 100 Unit/Ml Syr SQ HS [facility] Lisinopril 20 mg 11/23/23 09:00 11/23/23 09:30 Lisinopril 20 Mg Tab PO 20 mg BID [facility] Administration Metoprolol Tartrate 100 mg 11/23/23 09:00 11/23/23 09:29 Metoprolol Tartrate 50 Mg Tab PO 100 mg BID [facility] Administration Miscellaneous Information 1 each 11/23/23 13:10 Rx Info: Iv Contrast Was Given 1 Each Misc MISCELLANE 11/25/23 13:10 DAILY PRN Per Protocol Montelukast Sodium 10 mg 11/23/23 21:00 Montelukast 10 Mg Tab PO HS [facility] Nitroglycerin 0.4 mg 11/23/23 08:17 Nitroglycerin Sl Tabs 0.4 Mg Tab SUBLINGUAL Q5M PRN Chest Pain Intake and Output 11/23/23 11/23/23 11/23/23 06:59 14:59 22:59 Intake Total 76.174 415.619 Balance 76.174 415.619 Intake: IV 200 Intake, IV Titration 76.174 97.619 Amount Heparin Sod,Pork in 0.45% 76.174 97.619 NaCl 25,000 unit In 0.45 % NaCl 1 250ml.bag @ 8. 819 UNITS/KG/HR 10.001 mls/hr IV .Q24H [facility] Rx#: [id number] Oral 0 118 Other: # Voids 2 11/23/23 03:31 11/22/23 16:02
[2023-11-23 17:31] LABS: Glucose,Whole Blood 115 mg/dL (70-110)
[2023-11-23] MEDS: INSULIN ASPART (NovoLOG) 100 UNIT/ML VIAL SQ SCH (18:37)
[2023-11-23] MEDS: SODIUM CHLORIDE 0.9% 1,000 ML IV SCH (18:37)
[2023-11-23] MEDS: MONTELUKAST 10 MG TAB PO SCH (20:25)
[2023-11-23] MEDS: CLOPIDOGREL 75 MG TAB PO SCH (20:25)
[2023-11-23 20:34] LABS: Glucose,Whole Blood 134 mg/dL (70-110)
[2023-11-23] MEDS: INSULIN DETEMIR (LEVEMIR) 100 UNIT/ML SYR SQ SCH (20:43)
[2023-11-24 03:03] VITALS: RESP 16
[2023-11-24 06:13] LABS: Glucose,Whole Blood 133 mg/dL (70-110)
[2023-11-24 07:20] VITALS: BP 138/77; PULSE 64; TEMP 98.2
--- NOTE | 2023-11-24 08:32 | P.PN ---
Subjective Patient is doing well any chest discomfort. He is sitting comfortably in bed. He had a radial cardiac catheterization performed with coronary angiography via the left radial artery. His left hand circulation is normal Heart sounds are normal and regular. S2 is crisp Breath sounds are clear Blood pressure 150/81 mmHg 138/77 mmHg, pulse rate in the 60s afebrile Impression Known coronary artery disease status post coronary artery bypass grafting No progression of epicardial coronary artery disease based on coronary angiography Bioprosthetic aortic valve in stable position Plan Discharge home follow-up with Dr. Lozano Continue home medications text Objective - Vital Signs Vital signs: Vital Signs Temp 98.2 F 11/24/23 07:00 Pulse 64 11/24/23 07:00 Resp 16 11/24/23 07:00 BP 138/77 11/24/23 07:00 Pulse Ox 96 11/24/23 07:00 FiO2 Intake & Output 11/23/23 11/24/23 11/24/23 18:59 06:59 18:59 Intake Total 533.619 Balance 533.619 Intake: IV 200 Intake, IV Titration 97.619 Amount Heparin Sod,Pork in 0.45% 97.619 NaCl 25,000 unit In 0.45 % NaCl 1 250ml.bag @ 8. 819 UNITS/KG/HR 10.001 mls/hr IV .Q24H DELFINO Rx#: [id number] Oral 236 Other: # Voids 3 2 - Labs CBC & Chem 7: 11/23/23 03:31 11/22/23 16:02 Labs: Abnormal Lab Results - Last 24 Hours (Table) 11/23/23 11/23/23 11/23/23 Range/Units 03:31 09:27 09:27 APTT 34.9 H (22.0-30.0) sec POC Glucose (mg/dL) (70-110) mg/dL Hemoglobin A1c 7.2 H (<=6.0) % Triglycerides 252.00 H (0.00-149.00) mg/dL VLDL Cholesterol, Calc 50.40 H (5.00-40.00) mg/dL HDL Cholesterol 28.20 L (40.00-60.00) mg/dL 11/23/23 11/23/23 11/24/23 Range/Units 17:30 20:33 06:12 APTT (22.0-30.0) sec POC Glucose (mg/dL) 115 H 134 H 133 H (70-110) mg/dL Hemoglobin A1c (<=6.0) % Triglycerides (0.00-149.00) mg/dL VLDL Cholesterol, Calc (5.00-40.00) mg/dL HDL Cholesterol (40.00-60.00) mg/dL
[2023-11-24 08:46] LABS: Platelet Count 208 X 10*3/uL (140-440)
--- NOTE | 2023-11-24 14:35 | P.DS ---
Providers Date of admission: 11/22/23 18:13 Attending physician: Leslee Meredith Consults: 11/22/23 18:12 Consult Physician Urgent Consulting Provider: Flaco Lozano Consult Reason/Comments: p Do you want consulting provider notified?: Yes Primary care physician: Deidre Maddox Hospital Course: Discharge diagnosis: Chest pain, resolved Diabetes mellitus type 2 COPD Hypertension Hyperlipidemia Hospital course: Patient is 63-year-old male with a past medical history of coronary artery disease, CABG, aortic valve replacement, stent placement, bilateral carotid endarterectomy, hypertension, hyperlipidemia, diabetes melitis type II, history of OK, obstructive sleep apnea on CPAP presented to the emergency department with chest pain for about 90 minutes. He tried taking aspirin and nitro with no immediate relief during the episode but while in the ED he had resolution of his chest pain. He describes the chest pain as starting in his back and radiating to his chest jaw and ear more on the left side than the right. He endorses diaphoresis at the time. He states that he has had similar symptoms to this in the past when he had an OK. He rates the pain 8/10 at the time. At the time he denies shortness of breath, palpitations, nausea, vomiting, weakness, abdominal pain, lightheadedness. EKG shows sinus rhythm with borderline right axis deviation. Chest x-ray is unremarkable. WBCs 9.5, hemoglobin 15.1, platelets 231, sodium 140, potassium 4.7, CO2 25, creatinine 0.68, troponins x 3 < 0.012. Afebrile, hypertensive, normal respiratory effort, saturating well on room air. 11/23. Patient seen and examined lying comfortably in bed. Cardiac catheterization revealed: Subtotally occluded mid LAD at the site of the prior stenting with patent LIU to the LAD, mild disease in the left circumflexdominant vessel, nonobstructive disease in the small dominant right; recommendations at this time are to continue medical therapy with aggressive coronary risk modifications, consider adding Zetia. Lipid panel reveals hypertriglyceridemia. Patient is medically stable for discharge. Cardiology has cleared patient for discharge with outpatient follow-up. Physical examination: Vital signs are reviewed. General: No acute distress. AOx4. HEENT: Head exam is unremarkable. EOMI bilaterally. ACs patent. Nares patent. Lungs: Bilateral breath sounds present; no rhonchi, wheezes, or rales. Heart: Rate and rhythm are regular. S1-S2 present. No murmur/rub/gallops. Abdomen: Soft, nontender, nondistended. Bowel sounds present. Extremities: No edema present. Symmetric movement. Psych: Normal affect and mood. Cooperative. Patient Condition at Discharge: Good Plan - Discharge Summary New Discharge Prescriptions: Continue Atorvastatin [Lipitor] 80 mg PO HS Montelukast [Singulair] 10 mg PO HS Metoprolol Tartrate [Lopressor] 100 mg PO BID Insulin Glargine,Hum.rec.anlog [Lantus Solostar Pen] 12 units SQ HS PRN PRN Reason: Blood Sugar - High Semaglutide [Ozempic] 1 mg SQ TU Clopidogrel [Plavix] 75 mg PO HS lisinopriL [Zestril] 20 mg PO BID Aspirin [Adult Low Dose Aspirin EC] 81 mg PO DAILY metFORMIN HCL [metFORMIN HCL ER] 750 mg PO BID Discharge Medication List Atorvastatin [Lipitor] 80 mg PO HS 04/29/20 [History] Clopidogrel [Plavix] 75 mg PO HS 07/08/20 [History] Montelukast [Singulair] 10 mg PO HS 09/24/20 [History] Metoprolol Tartrate [Lopressor] 100 mg PO BID 09/19/21 [History] Insulin Glargine,Hum.rec.anlog [Lantus Solostar Pen] 12 units SQ HS PRN 10/21/21 [History] lisinopriL [Zestril] 20 mg PO BID 10/21/21 [History] Aspirin [Adult Low Dose Aspirin EC] 81 mg PO DAILY 04/13/23 [History] Semaglutide [Ozempic] 1 mg SQ TU 04/13/23 [History] metFORMIN HCL [metFORMIN HCL ER] 750 mg PO BID 11/22/23 [History] Follow up Appointment(s)/Referral(s): Flaco Lozano MD [STAFF PHYSICIAN] - 12/01/23 3:15 pm Deidre Maddox MD [Primary Care Provider] - 1-2 days Patient Instructions/Handouts: *Surgery [facility] - After Heart Catheterization - Guest Services Assistant Instructions, Heart Healthy Diet (DC), Heart Catheterization (DC) Discharge Disposition: HOME SELF-CARE
== END 2023-11-24 11:55 | disposition home or self-care (01) ==
LOC: EC 15:42 → 3SCARD 18:13 → 6NMEDSUR 21:40
PROVIDERS: ADMIT Hospitalist; ATTEND Hospitalist
DX: R07.89 Other chest pain (principal); I25.10 Atherosclerotic heart disease of native coronary artery without angina pectoris; E11.9 Type 2 diabetes mellitus without complications; I10 Essential (primary) hypertension; G47.33 Obstructive sleep apnea (adult) (pediatric); J44.9 Chronic obstructive pulmonary disease, unspecified; E78.1 Pure hyperglyceridemia; I42.9 Cardiomyopathy, unspecified; R68.84 Jaw pain; R61 Generalized hyperhidrosis; R20.0 Anesthesia of skin; M54.2 Cervicalgia; M54.9 Dorsalgia, unspecified; I25.2 Old myocardial infarction; Z79.82 Long term (current) use of aspirin; Z79.02 Long term (current) use of antithrombotics/antiplatelets; Z79.4 Long term (current) use of insulin; Z79.84 Long term (current) use of oral hypoglycemic drugs; Z79.85 Long-term (current) use of injectable non-insulin antidiabetic drugs; Z79.899 Other long term (current) drug therapy; Z87.891 Personal history of nicotine dependence; Z95.1 Presence of aortocoronary bypass graft; Z95.3 Presence of xenogenic heart valve; Z95.5 Presence of coronary angioplasty implant and graft
CPT/HCPCS: 36415; 71046; 80053; 80061; 83036; 83735; 84484; 85025; 85049; 85379; 85610; 85730; 93005; 93306; 93455; 96365; 96366; 96376; 99285

== ENCOUNTER → 2023-12-19 | Outpatient (CLI) | payer BC ==
[2023-12-19 15:28] LABS: NT-Pro-B-Type Natriuretic Pept 61 pg/mL (0-125)
[2023-12-19 15:41] LABS: BUN/Creat Ratio 18.25 Ratio (12.00-20.00); Blood Urea Nitrogen 14.6 mg/dL (9.0-27.0); Calcium 9.5 mg/dL (8.7-10.3); Carbon Dioxide 26.2 mmol/L (21.6-31.8); Chloride 102 mmol/L (96-109); Glucose 126 mg/dL (70-110); Potassium 4.9 mmol/L (3.5-5.5); Sodium 142 mmol/L (135-145)
== END | disposition home or self-care (01) ==
LOC: LABWHC1 09:09
PROVIDERS: ATTEND Internal Medicine Interventional Cardiology
CPT/HCPCS: 36415; 80048; 83880

== ENCOUNTER → 2024-05-15 | Outpatient (CLI) | payer MEDICARE ==
[2024-05-15 15:13] LABS: HCT 48.9 % (39.6-50.0); HGB 15.4 g/dL (13.0-17.0); MCH 29.1 pg (27.0-32.0); MCHC 31.5 g/dL (32.0-37.0); MCV 92.4 FL (80.0-97.0); NRBC Per 100 WBC 0 X 10*3/uL (0.00-0.01); Platelet Count 193 X 10*3/uL (140-440); RBC 5.29 X 10*6/uL (4.40-5.60); RDW 12.7 % (11.5-14.5); WBC 8.04 X 10*3/uL (4.50-10.00)
== END | disposition home or self-care (01) ==
LOC: LABWHC1 10:03
PROVIDERS: ATTEND Anesthesiology
DX: Z01.818 Encounter for other preprocedural examination (principal); K46.9 Unspecified abdominal hernia without obstruction or gangrene
CPT/HCPCS: 85027

== ENCOUNTER 2024-05-16 09:17 | Day surgery (SDC) | payer MEDICARE ==
[2024-05-15 09:34] VITALS: BMI 34.8
--- NOTE | 2024-05-16 09:06 | P.GSHP ---
History of Present Illness H&P Date: 05/16/24 CHIEF COMPLAINT: Colon screen HISTORY OF PRESENT ILLNESS: The patient is a 64-year-old male who presents for colon screen. Lower endoscopy was offered for further evaluation and management. PAST MEDICAL HISTORY: Please see list. PAST SURGICAL HISTORY: Please see list. MEDICATIONS: Please see list. ALLERGIES: Please see list. SOCIAL HISTORY: No illicit drug use FAMILY HISTORY: No reports of Crohn disease or ulcerative colitis. REVIEW OF ORGAN SYSTEMS: CONSTITUTIONAL: No reports of fevers or chills. PHYSICAL EXAM: VITAL SIGNS: Stable GENERAL: Well-developed pleasant in no acute distress. HEENT: No scleral icterus. Extraocular movements grossly intact. Moist buccal mucosa. NECK: Supple without lymphadenopathy. CHEST: Unlabored respirations. Equal bilateral excursions. CARDIOVASCULAR: Regular rate and rhythm. Distal 2+ pulses. ABDOMEN: Soft, nontender, nondistended. MUSCULOSKELETAL: No clubbing, cyanosis, or edema. ASSESSMENT: 1. Colon screen. PLAN: 1. Recommend proceeding with a lower endoscopy Past Medical History Past Medical History: Coronary Artery Disease (CAD), COPD, Diabetes Mellitus, Hyperlipidemia, Hypertension, Myocardial Infarction (AR), Osteoarthritis (OA), Pneumonia, Skin Disorder, Sleep Apnea/CPAP/BIPAP, Supraventricular Tachycardia (SVT) Additional Past Medical History / Comment(s): hx acute hypoxic respiratory failure-sepsis d/t covid pneumonia 2020, arthritis bilat hands, occ rash on face, sleep apnea - uses CPAP, umbilical hernia, SVT with successful ablation,hx james carotid stenosis Last Myocardial Infarction Date:: History of Any Multi-Drug Resistant Organisms: None Reported Past Surgical History: Appendectomy, Cardiac Ablation, Cardiac Valve Replacement, Coronary Bypass/CABG, Heart Catheterization With Stent, Orthopedic Surgery Additional Past Surgical History / Comment(s): Cardiac ablation for SVT, james carotid endartectomy, bilateral carpal tunnel releases, colonoscopies/benign polyps. PTCA w/ 3 stents, CABG bypass x1 2020- aortic Valve replaced w/ bovine 09/28/20. Past Anesthesia/Blood Transfusion Reactions: No Reported Reaction Additional Past Anesthesia/Blood Transfusion Reaction / Comment(s): Pt has claustrophobia w/ MRI but no problems w/ O2 mask or CPAP. no hx blood transfusion Date of Last Stent Placement:: 12-23-16 Smoking Status: Former smoker - Past Family History Father Brother(s) Family Medical History: Cancer Additional Family Medical History / Comment(s): Father from colon cancer at the age of 63 yrs. Brother had colon cancer with surgical removal. One brother has Type II DM and another brother had AVR. Mother Family Medical History: Coronary Artery Disease (CAD), Diabetes Mellitus, Myocardial Infarction (AR) Additional Family Medical History / Comment(s): Mother of a AR at the age of 79yrs. She had an AICD/pacer. Medications and Allergies Home Medications Medication Instructions Recorded Confirmed Type Atorvastatin [Lipitor] 80 mg PO HS 04/29/20 05/15/24 History Clopidogrel [Plavix] 75 mg PO HS 07/08/20 05/15/24 History Montelukast [Singulair] 10 mg PO HS 09/24/20 05/15/24 History Metoprolol Tartrate [Lopressor] 100 mg PO BID 09/19/21 05/15/24 History lisinopriL [Zestril] 40 mg PO BID 10/21/21 05/15/24 History Aspirin [Adult Low Dose Aspirin EC] 81 mg PO DAILY 04/13/23 05/15/24 History Semaglutide [Ozempic] 1 mg SQ TU 04/13/23 05/15/24 History metFORMIN HCL [metFORMIN HCL ER] 750 mg PO BID 11/22/23 05/15/24 History Empagliflozin [Jardiance] 10 mg PO HS 03/29/24 05/15/24 History Allergies Allergy/AdvReac Type Severity Reaction Status Date / Time No Known Allergies Allergy Verified 05/15/24 09:07
[2024-05-16 09:41] VITALS: RESP 16; TEMP 97
[2024-05-16] MEDS: LACTATED RINGERS 1,000 ML IV SCH (09:44)
[2024-05-16] MEDS: LIDOCAINE 1% (10MG/ML) FOR IV START INTRADERMA PRN (09:44)
[2024-05-16] MEDS: IV FLUID CONTINUATION 1,000 ML IV ONE (09:45)
[2024-05-16] MEDS ORDERED: PROPOFOL 10 MG/ML 20 ML VIAL IV ONE (09:54)
[2024-05-16 10:00] LABS: Glucose,Whole Blood 128 mg/dL (70-110)
--- NOTE | 2024-05-16 10:30 | P.PCN ---
Date of Procedure: 05/16/24 Description of Procedure: PREOPERATIVE DIAGNOSIS: Colonoscopy screening. POSTOPERATIVE DIAGNOSIS: Colonoscopy screening. Constipation OPERATION: Colonoscopy to the cecum, ileocecal valve and appendiceal orifice. SURGEON: Bev Kong MD. ANESTHESIA: MAC. INDICATIONS: The patient is a 64-year-old male who presents for colonoscopy screening. Last colonoscopy over 5 years ago. Benefits and risks were described and informed consent was obtained. DESCRIPTION OF PROCEDURE: The patient had undergone Suprep. The patient had been brought into the operating room and laid in the left lateral decubitus position. After adequate intravenous sedation, the rectum was examined with 2% lidocaine jelly. No external hemorrhoids were encountered. The rectal tone was within normal limits. No lesions were palpated in the rectal vault. An Olympus colonoscope was advanced until the cecum, ileocecal valve and appendiceal orifice. The prep was fair. No large scattered diverticulosis was encountered. No colonic polyps were found. No evidence of focal colitis was found. Retroflexion of the scope demonstrated grade 1 internal hemorrhoids without active bleeding or inflammation. The colon was desufflated. The patient had tolerated the procedure well. Withdrawal time was over 6 minutes. FINDINGS: Aronchick preparation quality scale 3 (1-5) Internal hemorrhoids, grade 1 No external prolapsed hemorrhoids. No arteriovenous malformations. No adenomatous polyps. No focal colitis. Moderate retained stool of the ascending colon and cecum limiting complete review of small polyp RECOMMENDATIONS: Lower endoscopy in 5 years2029 Plan - Discharge Summary Discharge Rx Participant: No New Discharge Prescriptions: New Lactulose [Cephulac] 30 gm PO BID PRN #500 ml PRN Reason: Constipation Continue Atorvastatin [Lipitor] 80 mg PO HS Montelukast [Singulair] 10 mg PO HS Metoprolol Tartrate [Lopressor] 100 mg PO BID Semaglutide [Ozempic] 1 mg SQ TU Clopidogrel [Plavix] 75 mg PO HS lisinopriL [Zestril] 40 mg PO BID Aspirin [Adult Low Dose Aspirin EC] 81 mg PO DAILY metFORMIN HCL [metFORMIN HCL ER] 750 mg PO BID Empagliflozin [Jardiance] 10 mg PO HS Discharge Medication List Atorvastatin [Lipitor] 80 mg PO HS 04/29/20 [History] Clopidogrel [Plavix] 75 mg PO HS 07/08/20 [History] Montelukast [Singulair] 10 mg PO HS 09/24/20 [History] Metoprolol Tartrate [Lopressor] 100 mg PO BID 09/19/21 [History] lisinopriL [Zestril] 40 mg PO BID 10/21/21 [History] Aspirin [Adult Low Dose Aspirin EC] 81 mg PO DAILY 04/13/23 [History] Semaglutide [Ozempic] 1 mg SQ TU 04/13/23 [History] metFORMIN HCL [metFORMIN HCL ER] 750 mg PO BID 11/22/23 [History] Empagliflozin [Jardiance] 10 mg PO HS 03/29/24 [History] Lactulose [Cephulac] 30 gm PO BID PRN #500 ml 05/16/24 [Rx] Follow up Appointment(s)/Referral(s): Bev Kong MD [STAFF PHYSICIAN] - As Needed Patient Instructions/Handouts: Constipation (DC) Activity/Diet/Wound Care/Special Instructions: Repeat colonoscopy 5 years, 2029 Discharge Disposition: HOME SELF-CARE
[2024-05-16 10:40] VITALS: BP 126/67; PULSE 63
== END 2024-05-16 11:44 | disposition home or self-care (01) ==
LOC: ORWHC2ENDO 09:17
PROVIDERS: ATTEND Surgery Plastic and Reconstructive Surgery
DX: Z12.11 Encounter for screening for malignant neoplasm of colon (principal); K64.0 First degree hemorrhoids; I25.10 Atherosclerotic heart disease of native coronary artery without angina pectoris; I25.2 Old myocardial infarction; J44.9 Chronic obstructive pulmonary disease, unspecified; E11.9 Type 2 diabetes mellitus without complications; I10 Essential (primary) hypertension; E78.5 Hyperlipidemia, unspecified; M19.042 Primary osteoarthritis, left hand; G47.33 Obstructive sleep apnea (adult) (pediatric); Z86.16 Personal history of COVID-19; Z99.89 Dependence on other enabling machines and devices; Z90.49 Acquired absence of other specified parts of digestive tract; Z95.2 Presence of prosthetic heart valve; Z86.79 Personal history of other diseases of the circulatory system; Z95.5 Presence of coronary angioplasty implant and graft; Z95.1 Presence of aortocoronary bypass graft; Z87.891 Personal history of nicotine dependence; Z80.0 Family history of malignant neoplasm of digestive organs; Z83.3 Family history of diabetes mellitus; Z79.02 Long term (current) use of antithrombotics/antiplatelets; Z79.82 Long term (current) use of aspirin; Z79.84 Long term (current) use of oral hypoglycemic drugs; Z79.899 Other long term (current) drug therapy
CPT/HCPCS: J2704; G0105; 45378

== ENCOUNTER 2024-05-17 05:39 | Day surgery (SDC) | payer MEDICARE ==
[2024-05-15 11:47] VITALS: BMI 34.8
[2024-05-17] MEDS: IV FLUID CONTINUATION 1,000 ML IV ONE (06:09)
[2024-05-17 06:22] VITALS: TEMP 97.2
[2024-05-17] MEDS: MELOXICAM 7.5 MG TAB PO PRN (06:43)
[2024-05-17] MEDS: ACETAMINOPHEN TAB 500 MG TAB PO PRN (06:43)
[2024-05-17] MEDS: LACTATED RINGERS 1,000 ML IV SCH (06:44)
[2024-05-17] MEDS: MIDAZOLAM 2 MG/2 ML VIAL IV PRN (07:01)
[2024-05-17 07:03] LABS: Glucose,Whole Blood 131 mg/dL (70-110)
[2024-05-17] MEDS: ONDANSETRON 4 MG/2 ML VIAL IVP PRN (07:12)
[2024-05-17] MEDS: HEPARIN SODIUM,PORCINE 5,000 UNIT/ML 1 ML VIAL SQ PRN (07:13)
--- NOTE | 2024-05-17 07:14 | P.GSHP ---
History of Present Illness H&P Date: 05/17/24 CHIEF COMPLAINT: Ventral hernia HISTORY OF PRESENT ILLNESS: The patient is a 64-year-old male presents with a history of swelling and pain along the abdomen from a hernia of the abdomen. Symptoms have been present for over 6 months. Now he presents for surgical intervention. PAST MEDICAL HISTORY: Please see list. PAST SURGICAL HISTORY: Please see list. MEDICATIONS: Please see list. ALLERGIES: Please see list. SOCIAL HISTORY: No illicit drug use FAMILY HISTORY: No reports of Crohn disease or ulcerative colitis. REVIEW OF ORGAN SYSTEMS: CONSTITUTIONAL: Denies any fever or chills. Denies recent weight loss or weight gain. HEENT: Denies any trouble with vision, hearing or nosebleeds. No difficulty swallowing. LYMPHATIC: The patient denies any lumps and bumps around the neck. ENDOCRINE: Denies any thyroid disorders. Has blood sugar glucose intolerance. RESPIRATORY: Denies pneumonia. Denies any troubles with breathing or dyspnea on exertion. CARDIOVASCULAR: Has hypertensive heart disease. GASTROINTESTINAL: Denies heart burn, constipation or bright red blood per rectum. GENITOURINARY: Denies any blood in urine or increased urinary frequency. MUSCULOSKELETAL: Denies any back pain, stiffness, joint arthritis. NEUROLOGIC: Denies any numbness or tingling along the distal extremities. No seizure disorders or headaches. PSYCHIATRIC: Denies depression or suidical ideation. HEMATOLOGIC: Denies any abnormal bleeding or bruising. BREASTS: Denies any breast lumps, pain or nipple discharge. PHYSICAL EXAM: GENERAL: Well-developed pleasant male in no acute distress. HEENT: No scleral icterus. Extraocular movements grossly intact. Moist buccal mucosa. NECK: Supple without lymphadenopathy. CHEST: Unlabored respirations. Equal bilateral excursions. CARDIOVASCULAR: Regular rate and rhythm. Distal 2+ pulses. ABDOMEN: Soft, nondistended. Palpable defect of the abdomen. No peritoneal signs. MUSCULOSKELETAL: No clubbing, cyanosis, or edema. SKIN: Well perfused. PSYCH: Alert and oriented to self, place and time ASSESSMENT: 1. Ventral hernia 2. Morbid obesity, BMI 36.2 3. Diabetes type II, insulin dependent PLAN: 1. Recommend proceeding with robotic ventral hernia repair with mesh. 2. Benefits and risks of surgical intervention was discussed including possibility of open technique. 3. DVT prophylaxis. 4. Antibiotic prophylaxis. 5. Non narcotic pain management including abdominal wall block described 6. Blood sugar glucose described. 7. Weight loss management described. 8. He is elevated risk of complications due diabetes, morbid obesity. 9. CMP and CBC at time of surgery. Past Medical History Past Medical History: Coronary Artery Disease (CAD), COPD, Diabetes Mellitus, Hyperlipidemia, Hypertension, Myocardial Infarction (AL), Osteoarthritis (OA), Pneumonia, Skin Disorder, Sleep Apnea/CPAP/BIPAP, Supraventricular Tachycardia (SVT) Additional Past Medical History / Comment(s): hx acute hypoxic respiratory failure-sepsis d/t covid pneumonia 2020, arthritis bilat hands, occ rash on face, sleep apnea - uses CPAP, umbilical hernia, SVT with successful ablation,hx james carotid stenosis Last Myocardial Infarction Date:: History of Any Multi-Drug Resistant Organisms: None Reported Past Surgical History: Appendectomy, Cardiac Ablation, Cardiac Valve Replacement, Coronary Bypass/CABG, Heart Catheterization With Stent, Orthopedic Surgery Additional Past Surgical History / Comment(s): Cardiac ablation for SVT, james carotid endartectomy, bilateral carpal tunnel releases, colonoscopies/benign polyps. PTCA w/ 3 stents, CABG bypass x1 2020- aortic Valve replaced w/ bovine 09/28/20. Past Anesthesia/Blood Transfusion Reactions: No Reported Reaction Additional Past Anesthesia/Blood Transfusion Reaction / Comment(s): Pt has claustrophobia w/ MRI but no problems w/ O2 mask or CPAP. no hx blood transfusion Date of Last Stent Placement:: 12-23-16 Smoking Status: Former smoker - Past Family History Father Brother(s) Family Medical History: Cancer Additional Family Medical History / Comment(s): Father from colon cancer at the age of 63 yrs. Brother had colon cancer with surgical removal. One brother has Type II DM and another brother had AVR. Mother Family Medical History: Coronary Artery Disease (CAD), Diabetes Mellitus, Myocardial Infarction (AL) Additional Family Medical History / Comment(s): Mother of a AL at the age of 79yrs. She had an AICD/pacer. Medications and Allergies Home Medications Medication Instructions Recorded Confirmed Type Atorvastatin [Lipitor] 80 mg PO HS 04/29/20 05/17/24 History Clopidogrel [Plavix] 75 mg PO HS 07/08/20 05/17/24 History Montelukast [Singulair] 10 mg PO HS 09/24/20 05/17/24 History Metoprolol Tartrate [Lopressor] 100 mg PO BID 09/19/21 05/17/24 History lisinopriL [Zestril] 40 mg PO BID 10/21/21 05/17/24 History Aspirin [Adult Low Dose Aspirin EC] 81 mg PO DAILY 04/13/23 05/17/24 History Semaglutide [Ozempic] 1 mg SQ TU 04/13/23 05/17/24 History metFORMIN HCL [metFORMIN HCL ER] 750 mg PO BID 11/22/23 05/17/24 History Empagliflozin [Jardiance] 10 mg PO HS 03/29/24 05/17/24 History Lactulose [Cephulac] 30 gm PO BID PRN #500 ml 05/16/24 05/17/24 Rx Allergies Allergy/AdvReac Type Severity Reaction Status Date / Time No Known Allergies Allergy Verified 05/17/24 06:13 Surgical - Exam Vital Signs Temp Pulse Resp BP Pulse Ox 97.2 F L 66 18 177/77 97 05/17/24 06:20 05/17/24 06:20 05/17/24 06:20 05/17/24 06:20 05/17/24 06:20 Results - Labs Abnormal Lab Results - Last 24 Hours (Table) 05/17/24 Range/Units 06:51 POC Glucose (mg/dL) 131 H (70-110) mg/dL
[2024-05-17] MEDS ORDERED: GLYCOPYRROLATE 0.2 MG/ML 2 ML VIAL ONE (07:25)
[2024-05-17] MEDS ORDERED: SUGAMMADEX SODIUM 100 MG/ML SYR IV ONE (07:25)
[2024-05-17] MEDS ORDERED: HYDROmorphone (PF) 1 MG/ML ONE (07:25)
[2024-05-17] MEDS ORDERED: SUCCINYLCHOLINE CHLORIDE 200 MG/10 ML VIAL IV ONE (07:25)
[2024-05-17] MEDS ORDERED: ePHEDrine 50 MG/ML 1 ML VIAL ONE (07:25)
[2024-05-17] MEDS ORDERED: ROCURONIUM 10 MG/ML (5 ML VIAL) IV ONE (07:25)
[2024-05-17] MEDS ORDERED: MIDAZOLAM 2 MG/2 ML VIAL ONE (07:25)
[2024-05-17] MEDS ORDERED: SODIUM CHLORIDE 0.9% (PF) 10 ML VIAL ONE (07:25)
[2024-05-17] MEDS ORDERED: LIDOCAINE 1% INJ 10MG/ML (20 ML MDV) ONE (07:25)
[2024-05-17] MEDS ORDERED: PROPOFOL 10 MG/ML 20 ML VIAL IV ONE (07:25)
[2024-05-17] MEDS ORDERED: PHENYLEPHRINE-0.9% NACL SYG 1,000 MCG/10 ML SYRINGE ONE (07:25)
[2024-05-17] MEDS ORDERED: NEOSTIGMINE 1 MG/ML 10 ML VIAL ONE (07:25)
[2024-05-17] MEDS ORDERED: fentaNYL (PF) 50 MCG/ML 2 ML AMP ONE (07:25)
[2024-05-17] MEDS ORDERED: ROPIVACAINE 5 MG/ML 30 ML VIAL ONE (07:25)
[2024-05-17 07:30] VITALS: RESP 16
[2024-05-17 07:51] LABS: ALT 42 U/L (4-49); AST 28 U/L (17-59); African American GFR (CKD) >90 (>60 ml/min/1.73 sqM); Alkaline Phosphatase 51 U/L (38-126); Anion Gap 6 mmol/L; Blood Urea Nitrogen 17 mg/dL (9-20); Calcium 8.8 mg/dL (8.4-10.2); Carbon Dioxide 27 mmol/L (22-30); Chloride 105 mmol/L (98-107); Glucose 141 mg/dL (74-99); Non-African American GFR(CKD) >90 (>60 ml/min/1.73 sqM); Potassium 4.6 mmol/L (3.5-5.1); Sodium 138 mmol/L (137-145); Total Bilirubin 0.6 mg/dL (0.2-1.3); Total Protein 6.1 g/dL (6.3-8.2)
[2024-05-17] MEDS: LIDOCAINE 1%-EPI 1:100,000 20 ML VIAL SQ ONE (08:03)
[2024-05-17] MEDS: HYDROmorphone 0.5 MG/0.5 ML SYRINGE IVP PRN (09:46)
--- NOTE | 2024-05-17 09:46 | P.ANPRN ---
Procedure Note - Anesthesia - Nerve Block Performed Bilateral Erector Spinae Single Time Out Performed: Yes ([id number]) Date of Procedure: 05/17/24 Procedure Start Time: : Procedure Stop Time: :07 Location of Patient: PreOp Indication: Acute Post-Operative Pain, Requested by Surgeon Specifically requested for management of pain by : Bev Kong Sedation Type: Sedate with meaningful contact maintained Preparation: Sterile Prep Position: Sitting Catheter: None Needle Types: Pajunk Needle Gauge: 21 Ultrasound used to visualize needle placement: Yes Ultrasound used to observe medication spread: Yes Injectate: 0.5% Ropivacaine (see comment for volume) (20cc+10cc nacl pf each side) Blood Aspirated: No Pain Paresthesia on Injection Noted: No Resistance on Injection: Normal Image Stored and Saved: Yes Events: Uneventful and Well Tolerated
[2024-05-17 09:52] LABS: Glucose,Whole Blood 155 mg/dL (70-110)
--- NOTE | 2024-05-17 10:30 | P.OP ---
Date of Procedure: 05/17/24 Description of Procedure: SURGEON: BEV KONG MD PREOPERATIVE DIAGNOSES: 1. Initial incarcerated umbilical hernia 2. Morbid obesity due to excess calories, BMI 36.2 3. Diabetes type 2 with diabetic retinopathy 4. Hypertensive heart disease 5. Chronic anticoagulant use 6. Coronary artery disease 7. Hyperlipidemia 8. Chronic obstructive pulmonary disease due to asthma 9. History of myocardial infarction 10. Obstructive sleep apnea 11. History of supraventricular tachycardia 12. History of cardiac valvular replacement 13. History of bilateral carotid enterectomy POSTOPERATIVE DIAGNOSES: 1. Initial incarcerated umbilical hernia, 3-cm 2. Morbid obesity due to excess calories, BMI 36.2 3. Diabetes type 2 with diabetic retinopathy 4. Hypertensive heart disease 5. Chronic anticoagulant use 6. Coronary artery disease 7. Hyperlipidemia 8. Chronic obstructive pulmonary disease due to asthma 9. History of myocardial infarction 10. Obstructive sleep apnea 11. History of supraventricular tachycardia 12. History of cardiac valvular replacement 13. History of bilateral carotid enterectomy OPERATION: 1. Robotic-assisted da Brenda Xi laparoscopic repair of initial incarcerated umbilical hernia with mesh, ventralight ST mesh 11.4 cm Anesthesia: GETA, regional, local Estimated Blood Loss (ml): 5 Pathology: NONE COMPLICATIONS: None. Operative Findings: 1. Umbilical hernia defect 3 x 3 cm 2. Fascia repaired using #1 V-lock suture INDICATIONS: The patient is a 64-year-old male who presents incarcerated medical hernia over 6 months. Cardiac risk assessment was obtained prior. Surgical intervention with laparoscopic versus robotic and open techniques were reviewed. Placement of mesh was also reviewed. Benefits and risks were thoroughly described. Informed consent was obtained. DESCRIPTION OF PROCEDURE: The patient was brought into the operating room and laid in supine position. After general induction, the abdomen had been prepped and draped in standard sterile fashion. Ioban draping was also placed. Prior to incision, a timeout protocol was confirmed with surgical team regarding the patient's name including procedures to be performed. The robot was primed prior to the procedure. A field block using local anesthetic was placed along hernia site including the proposed port sites. Initial incision was made with an #11 blade along the left upper quadrant. A 0 degree 5 mm laparoscopic trocar entry was performed and insufflated. Three 8 mm ports were placed along the left lateral abdominal wall under direct localization after exchanging the 5-mm for an 8 mm port. Placements of the ports were 15 cm from the target anatomy and 10 cm apart. An accessory 12 mm port was placed at the left upper quadrant for exchange of mesh including sutures. The da Brenda Xi robot was previously primed, prepped and draped then docked from the right side of the patient onto the left side of the patient. I then sat at the robot Da Brenda Xi console where working arms of the robot including Bovie cautery connected to robotic scissors, needle class b driver, and graspers placed by the programs assistant. Incarcerated omental contents were found along the umbilicus and reduced. Distinct fascial defect umbilical hernia 2 x 3 cm was found after releasing omental contents. The incarcerated contents were reduced as the peritoneal fat was cleaned from the abdominal wall. Next, hemostasis was checked with cautery. The hernia defects were oversewn using #1 nonabsorbable V-lock suture with fascial imbrication x 2. Next, ventralight ST mesh 11.4 cm was placed with the rough side towards the abdominal wall as to cover the umbilical defect. 2-0 VLOC 12 inch sutures were used to fixate the mesh. A final endoscopic imaging was obtained. All instruments and pneumoperitoneum were evacuated from the abdominal cavity. The da Brenda Xi robot was undocked from the patient. I re-scrubbed into the case for closure of incisions. The fascia of the 12-mm port was probed and less than 8-mm in size. The incisions were reapproximated using 4-0 Monocryl in an interrupted subcuticular fashion. Liquid glue was applied to the skin after cleansing the skin with normal saline and dilute hydrogen peroxide. An abdominal binder was placed. An umbilical dressing using sterile cotton balls and Tegaderm was placed prior. At the end of the procedure, needle, sponge, and instrument count had been verified correct by ophthalmology surgical technician. The patient was taken to the postanesthesia care unit in stable condition. Plan - Discharge Summary Discharge Rx Participant: No New Discharge Prescriptions: Continue Atorvastatin [Lipitor] 80 mg PO HS Montelukast [Singulair] 10 mg PO HS Metoprolol Tartrate [Lopressor] 100 mg PO BID Semaglutide [Ozempic] 1 mg SQ TU Clopidogrel [Plavix] 75 mg PO HS lisinopriL [Zestril] 40 mg PO BID Aspirin [Adult Low Dose Aspirin EC] 81 mg PO DAILY metFORMIN HCL [metFORMIN HCL ER] 750 mg PO BID Empagliflozin [Jardiance] 10 mg PO HS Lactulose [Cephulac] 30 gm PO BID PRN #500 ml PRN Reason: Constipation Discharge Medication List Atorvastatin [Lipitor] 80 mg PO HS 04/29/20 [History] Clopidogrel [Plavix] 75 mg PO HS 07/08/20 [History] Montelukast [Singulair] 10 mg PO HS 09/24/20 [History] Metoprolol Tartrate [Lopressor] 100 mg PO BID 09/19/21 [History] lisinopriL [Zestril] 40 mg PO BID 10/21/21 [History] Aspirin [Adult Low Dose Aspirin EC] 81 mg PO DAILY 04/13/23 [History] Semaglutide [Ozempic] 1 mg SQ TU 04/13/23 [History] metFORMIN HCL [metFORMIN HCL ER] 750 mg PO BID 11/22/23 [History] Empagliflozin [Jardiance] 10 mg PO HS 03/29/24 [History] Lactulose [Cephulac] 30 gm PO BID PRN #500 ml 05/16/24 [Rx] Follow up Appointment(s)/Referral(s): Bev Kong MD [STAFF PHYSICIAN] - 05/21/24 1:00 pm Patient Instructions/Handouts: Laparoscopic Herniorrhaphy (DC), Ventral Hernia Repair (GEN), Abdominal Binder (DC) Activity/Diet/Wound Care/Special Instructions: No lifting for 4 pounds in 4 weeks, June 17 NO LONG DRIVES OR AIRPLANE RIDES OVER 60 MINUTES FOR THE NEXT 2 WEEKS, 05/31/24, DUE TO HIGH RISK OF PULMONARY EMBOLISM/DVTs Using antibacterial soap. May shower. No bathtub soaks for 2 weeks, 05/31/24 Wear abdominal binder daily for comfort except for showering. Use ice along incisions for today to prevent swelling. Use Tylenol, simethicone and ibuprofen or Aleve scheduled for the next 24-48 hours for best pain relief. Discharge Disposition: HOME SELF-CARE
[2024-05-17 10:59] LABS: Glucose,Whole Blood 151 mg/dL (70-110)
[2024-05-17 11:06] VITALS: BP 130/70; PULSE 63
== END 2024-05-17 11:54 | disposition home or self-care (01) ==
LOC: OR 05:39
PROVIDERS: ATTEND Surgery Plastic and Reconstructive Surgery
DX: K42.0 Umbilical hernia with obstruction, without gangrene (principal); K43.9 Ventral hernia without obstruction or gangrene; I25.10 Atherosclerotic heart disease of native coronary artery without angina pectoris; J44.89 Other specified chronic obstructive pulmonary disease; I25.2 Old myocardial infarction; E11.319 Type 2 diabetes mellitus with unspecified diabetic retinopathy without macular edema; I11.9 Hypertensive heart disease without heart failure; E78.5 Hyperlipidemia, unspecified; M19.042 Primary osteoarthritis, left hand; G47.33 Obstructive sleep apnea (adult) (pediatric); E66.01 Morbid (severe) obesity due to excess calories; Z86.16 Personal history of COVID-19; Z90.49 Acquired absence of other specified parts of digestive tract; Z68.36 Body mass index [BMI] 36.0-36.9, adult; Z95.2 Presence of prosthetic heart valve; Z95.5 Presence of coronary angioplasty implant and graft; Z95.1 Presence of aortocoronary bypass graft; Z87.891 Personal history of nicotine dependence; Z80.0 Family history of malignant neoplasm of digestive organs; Z83.3 Family history of diabetes mellitus; Z82.49 Family history of ischemic heart disease and other diseases of the circulatory system; Z79.84 Long term (current) use of oral hypoglycemic drugs; Z79.82 Long term (current) use of aspirin; Z79.02 Long term (current) use of antithrombotics/antiplatelets; Z79.4 Long term (current) use of insulin; Z79.899 Other long term (current) drug therapy
CPT/HCPCS: 64999; 80053; 49594; C1781; J2250; J0330; J1644; J2710; J0690; J2405; J2003; J3010; J1171 ×2; J2795; J2704; J2371; J1596